=== PATIENT | female | born 1995 | race Caucasian/White ===

== ENCOUNTER 2016-12-01 17:36 | Emergency (ER) | payer BC ==
[2016-12-01 17:41] VITALS: BP 100/67; RESP 16
[2016-12-01] MEDS ORDERED: diphenhydrAMINE 25 MG CAP PO ONE (18:04)
[2016-12-01] MEDS ORDERED: FAMOTIDINE 20 MG TAB PO ONE (18:04)
[2016-12-01] MEDS ORDERED: predniSONE 20 MG TAB PO ONE (18:04)
--- NOTE | 2016-12-01 18:20 | EDPHY ---
H & P Time Seen by Provider: 12/01/16 17:48 HPI/ROS: HPI Allergic reaction. 20-year-old female by private vehicle with her friends. This patient was eating chicken and catch-up mustard. She reports that shortly after doing this she started feeling a burning and itching sensation over her skin. She then broke out in an erythematous rash, mostly over her anterior thighs and knees some on her chest and forearms. She reported mild burning sensation in her throat. She denies sensation of swelling or closing of her throat. No voice changes. She denies any stridor. No difficulty breathing or wheezing. She is feeling much better at the time of my evaluation. ROS: Constitutional: No fever, no chills. No weakness. Eyes: No discharge. No changes in vision. ENT: No sore throat. No nasal congestion or rhinorrhea. Respiratory: No cough. No shortness of breath. Cardiac: No chest pain, no palpitations. Gastrointestinal: No abdominal pain, no vomiting, no diarrhea. Genitourinary: No hematuria. No dysuria or increased frequency with urination. Musculoskeletal: No back pain. No neck pain. No myalgias or arthralgias. Skin: No rashes. Neurological: No headache. No focal weakness or altered sensation. 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 She denies prior food allergies. Social history: Nonsmoker. No alcohol. Student. Physical Exam: General Appearance: Alert, no distress. This patient is responding to questions appropriately and in full sentences. This patient appears well- hydrated and well-nourished. No voice changes. Eyes: Pupils equal and round no pallor or injection. No lid edema, erythema or injection. ENT, Mouth: Mucous membranes are moist. The pharyngeal tissues are unremarkable. No edema or swelling. No asymmetry suggestive of abscess. No erythema or exudates. No stridor on auscultation of her neck. Respiratory: There are no retractions, lungs are clear to auscultation with good air movement bilaterally. Cardiovascular: Regular rate and rhythm. No murmur. Gastrointestinal: Abdomen is soft and nontender, no masses, bowel sounds normal. No focal tenderness at McBurney's point. No Zambrano sign. Neurological: Motor sensory function is grossly intact. Cranial nerves are normal. Gait is normal. Skin: Warm and dry, no rashes. Musculoskeletal: Neck is supple and nontender. Extremities are symmetrical. All joints range without pain or impingement. Psychiatric: No agitation. No depression. Database: EKG: Imaging: Procedures: Emergency department course: Patient showed me a picture on her cell phone of her rash. This appeared erythematous of blotchy over her knees and anterior distal thighs. This has resolved. Vital signs reviewed and are normal. She was given 40 mg of oral Pepcid, 50 mg of oral Benadryl and 60 mg of oral prednisone. 7:25 p.m., patient re-evaluated. She reports complete resolution of her symptoms. Repeat pharyngeal exam is normal. Vital signs reviewed and are normal. Pulmonary exam she is clear to auscultation bilaterally. No rashes. She feels comfortable going home at this time and I feel she is safe for discharge. Follow-up and return to emergency department precautions reviewed with her. She will be prescribed prednisone, Pepcid and Benadryl over the next 3 days. All of her questions were answered she was discharged home in good condition with her friends. Differential Diagnosis: The differential diagnosis on this patient includes but is not limited to allergic reaction, food allergy. Anaphylaxis, anaphylactoid reaction unlikely. This represents a partial list of diagnoses considered. These considerations are based on history, physical exam, past history, reassessment and diagnostic testing. Smoking Status: Never smoked Constitutional: Initial Vital Signs Temperature (C) 36.5 C 12/01/16 17:37 Heart Rate 71 12/01/16 17:37 Respiratory Rate 16 12/01/16 17:37 Blood Pressure 100/67 12/01/16 17:37 O2 Sat (%) 100 12/01/16 17:37 O2 Delivery Mode Room Air Allergies/Adverse Reactions: No Known Allergies Allergy (Unverified 12/01/16 17:41) Home Medications: Medication Instructions Recorded predniSONE [prednisone 20mg (RX)] 60 mg PO DAILY #9 tab 12/01/16 Medical Decision Making - Data Points Medications Given: Discontinued Medications Diphenhydramine HCl (Benadryl) 50 mg PO EDNOW ONE Stop: 12/01/16 18:05 Last Admin: 12/01/16 18:10 Dose: 50 mg Famotidine (Pepcid) 40 mg PO EDNOW ONE Stop: 12/01/16 18:05 Last Admin: 12/01/16 18:10 Dose: 40 mg Prednisone (Prednisone) 60 mg PO EDNOW ONE Stop: 12/01/16 18:05 Last Admin: 12/01/16 18:10 Dose: 60 mg Departure - Departure Disposition: Home, Routine, Self-Care Clinical Impression: Allergic reaction Condition: Good Instructions: General Allergic Reaction (ED) Additional Instructions: Read and follow provided instructions. Follow-up with your primary care physician tomorrow for re-evaluation as needed. Take medication as prescribed. Benadryl: 50 mg every 6-8 hours as needed for rash, itching over the next 2-3 days. Pepcid: 40 mg, twice daily for the next 3 days. Return to the emergency department for worsening symptoms, return of rash, sensation of swelling in her throat, voice changes, difficulty swallowing, wheezing or difficulty breathing or other serious concerns. Referrals: MICHELLE SMITH [Other] - As per Instructions Prescriptions: predniSONE [prednisone 20mg (RX)] 60 mg PO DAILY #9 tab
[2016-12-01 20:02] VITALS: PULSE 55; TEMP 98.6; O2SAT 99
[2016-12-03] MEDS ORDERED: HYDROmorphONE/DILAUDID 1 MG/ML INJ ONE (04:14)
== END 2016-12-01 20:02 | disposition home or self-care (01) ==
DX: L29.9 Pruritus, unspecified (principal); T78.1XXA Other adverse food reactions, not elsewhere classified, initial encounter
CPT/HCPCS: J1170

== ENCOUNTER 2016-12-02 21:42 | Inpatient (IN) | payer BC ==
[2016-12-02] MEDS ORDERED: HYDROmorphONE/DILAUDID 1 MG/ML INJ IVP ONE ×2 (22:18→23:26)
[2016-12-02] MEDS ORDERED: HYDROmorphONE/DILAUDID 1 MG/ML INJ ONE (22:19)
--- NOTE | 2016-12-02 22:21 | EDPHY ---
H & P Smoking Status: Never smoked <LaurynMarlon - Last Filed: 12/02/16 23:31> <PaulinaSteven luz Nilay - Last Filed: 12/03/16 04:10> Time Seen by Provider: 12/02/16 22:19 HPI/ROS: Chief complaint. Abdominal pain HPI. 20-year-old female with extensive abdominal history presents with sudden abdominal pain at 5:30 p.m.. She says it initially began in the right lower quadrant and described as pressure and stabbing. It is now more generalized. She has an ileostomy which seems to be functioning well. No vomiting or diarrhea. She has a history of bowel obstructions, colectomy, ileostomy. She has had her appendix removed. She has no chest discomfort or trouble breathing. No urinary symptoms. She was seen yesterday in the emergency department for an allergic reaction and was treated with Pepcid, Benadryl as well as prednisone. ROS Constitutional. no fever/chills, no weakness Eyes. no problems with vision ENT. no sore throat, no nasal drainage Cardiovascular. no chest pain Respiratory. no shortness of breath, no cough Abdominal. Abdominal pain . no problems urinating MS. no calf pain/swelling, no neck/back pain, no joint pain Skin. no rash Lymph. no swollen glands Neuro. no headache, no dizziness, no difficulty walking or with speech (Marlon Combs) Past Medical/Surgical History: Past medical history significant for colectomy, ileostomy, intestinal pseudo- obstruction, bowel obstruction (Marlon Combs) Social History: Single, nonsmoker, no alcohol (Marlon Combs) Physical Exam: General Appearance: Alert well-developed female mild distress vital signs are stable Eyes: Pupils equal and round no pallor or injection. ENT, Mouth: Mucous membranes are moist. Respiratory: There are no retractions, lungs are clear to auscultation. Cardiovascular: Regular rate and rhythm. Gastrointestinal: Soft and diffusely tender. No masses. Increased bowel sounds. Ileostomy in the right lower quadrant Neurological: Awake and alert, sensory and motor exams grossly normal. Skin: Warm and dry, no rashes. Musculoskeletal: Neck is supple nontender. Extremities symmetrical, full range of motion. Psychiatric: Patient is oriented X 3, there is no agitation. (Marlon Combs) Constitutional: Initial Vital Signs Temperature (C) 37 C 12/02/16 21:52 Heart Rate 93 12/02/16 21:52 Respiratory Rate 18 12/02/16 21:52 Blood Pressure 115/74 12/02/16 21:52 O2 Sat (%) 99 12/02/16 21:52 O2 Delivery Mode Room Air Allergies/Adverse Reactions: mustard Allergy (Verified 12/02/16 22:25) Home Medications: Medication Instructions Recorded predniSONE [prednisone 20mg (RX)] 60 mg PO DAILY #9 tab 12/01/16 Medical Decision Making <Maroln Combs - Last Filed: 12/02/16 23:31> - Diagnostics Imaging: Discussed imaging studies w/ call manager Radiologist <Steven Yoon - Last Filed: 12/03/16 04:10> - Diagnostics Imaging Results: Imaging Impressions Abdomen CT 12/02/16 22:36 Impression: 1. Postsurgical changes within the small bowel loops of the lower abdomen and central pelvis, with associated peritoneal ascites. A more focal fluid collection with intraluminal air is present in the right lower quadrant suspicious for abscess. Dilated small bowel loops are fluid-filled within the central pelvis. Results called to Dr. Steven Yoon at 11:48 PM. Procedures: IV normal saline. Dilaudid for pain. (Marlon Combs) ED Course/Re-evaluation: [address] Combs pending CT scan results and re-evaluation. CT scan results noted. Patient has a large intraperitoneal abscess. I have discussed the case with Dr. Yao, general surgery. He will evaluate the patient. Patient to go to surgery under Dr. Yao. Bed request has been made. (Steven Yoon) Care Turn Over: care to Dr. Yoon at 2330 (Marlon Combs) - Data Points Laboratory Results: Laboratory Results 12/02/16 22:00 12/02/16 22:00 12/02/16 12/02/16 12/02/16 22:00 22:00 22:00 WBC 13.41 10^3/uL H 10^3/uL (3.80-9.50) RBC 4.41 10^6/uL 10^6/uL (4.18-5.33) Hgb 13.4 g/dL g/dL (12.6-16.3) Hct 40.4 % % (38.0-47.0) MCV 91.6 fL fL (81.5-99.8) MCH 30.4 pg pg (27.9-34.1) MCHC 33.2 g/dL g/dL (32.4-36.7) RDW 14.8 % % (11.5-15.2) Plt Count 393 10^3/uL 10^3/uL (150-400) MPV 10.2 fL fL (8.7-11.7) Neut % (Auto) 72.9 % % (39.3-74.2) Lymph % (Auto) 24.4 % % (15.0-45.0) [place] % (Auto) 2.0 % L % (4.5-13.0) Eos % (Auto) 0.1 % L % (0.6-7.6) Baso % (Auto) 0.2 % L % (0.3-1.7) Nucleat RBC Rel Count 0.0 % % (0.0-0.2) Absolute Neuts (auto) 9.77 10^3/uL H 10^3/uL (1.70-6.50) Absolute Lymphs (auto) 3.27 10^3/uL H 10^3/uL (1.00-3.00) Absolute Monos (auto) 0.27 10^3/uL L 10^3/uL (0.30-0.80) Absolute Eos (auto) 0.02 10^3/uL L 10^3/uL (0.03-0.40) Absolute Basos (auto) 0.03 10^3/uL 10^3/uL (0.02-0.10) Absolute Nucleated RBC 0.00 10^3/uL 10^3/uL (0-0.01) Immature Gran % 0.4 % % (0.0-1.1) Immature Gran # 0.05 10^3/uL 10^3/uL (0.00-0.10) Sodium 137 mEq/L mEq/L (134-144) Potassium 3.4 mEq/L L mEq/L (3.5-5.2) Chloride 105 mEq/L mEq/L (97-110) Carbon Dioxide 20 mEq/l L mEq/l (22-31) Anion Gap 12 mEq/L mEq/L (8-16) BUN 8 mg/dL mg/dL (7-23) Creatinine 1.0 mg/dL mg/dL (0.6-1.0) Estimated GFR > 60 Glucose 99 mg/dL mg/dL (70-100) Calcium 9.6 mg/dL mg/dL (8.5-10.4) Lipase 114 IU/L IU/L (23-300) Beta HCG, Qual NEGATIVE Medications Given: Discontinued Medications Hydromorphone HCl (Dilaudid) 1 mg IVP EDNOW ONE Stop: 12/02/16 22:19 Last Admin: 12/02/16 22:20 Dose: 1 mg Hydromorphone HCl (Dilaudid) 0.5 mg IVP EDNOW ONE Stop: 12/02/16 23:27 Last Admin: 12/02/16 23:27 Dose: 0.5 mg Hydromorphone HCl (Dilaudid) 0.5 mg IVP EDNOW ONE Stop: 12/03/16 00:17 Last Admin: 12/03/16 00:20 Dose: 0.5 mg Hydromorphone HCl (Dilaudid) 0.5 mg IVP EDNOW ONE Stop: 12/03/16 01:31 Last Admin: 12/03/16 01:36 Dose: Not Given Hydromorphone HCl (Dilaudid) 0.5 mg IVP EDNOW ONE Stop: 12/03/16 01:36 Last Admin: 12/03/16 01:36 Dose: 0.5 mg Sodium Chloride (Ns) 1,000 mls @ 0 mls/hr IV EDNOW ONE; Wide Open PRN Reason: Protocol Stop: 12/02/16 22:37 Last Admin: 12/02/16 22:46 Dose: 1,000 mls Ketorolac Tromethamine (Toradol) 30 mg IVP EDNOW ONE Stop: 12/03/16 01:32 Last Admin: 12/03/16 01:34 Dose: 30 mg Departure <Marlon Combs - Last Filed: 12/02/16 23:31> <Steven Yoon - Last Filed: 12/03/16 04:10> - Departure Disposition: [facility] Inpatient Acute Clinical Impression: Abdominal abscess Condition: Fair
[2016-12-02] MEDS ORDERED: NS 1,000 ML IV ONE (22:36)
[2016-12-02] MEDS ORDERED: IOPAMIDOL (ISOVUE-300) 100 ML BTL ONE (22:46)
[2016-12-02 23:09] LABS: % IMMATURE GRANULYOCYTES 0.4 % (0.0-1.1); ABSOLUTE IMMATURE GRANULOCYTES 0.05 10^3/uL (0.00-0.10); ADD DIFF? NO; ADD MORPH? NO; ADD SCAN? NO; ATYPICAL LYMPHOCYTE FLAG 0 (0-99); FRAGMENT RBC FLAG 0 (0-99); HEMATOCRIT 40.4 % (38.0-47.0); HEMOGLOBIN 13.4 g/dL (12.6-16.3); LEFT SHIFT FLG 20 (0-99); LIPEMIA HEMOLYSIS FLAG 80 (0-99); MEAN CELL HEMOGLOBIN 30.4 pg (27.9-34.1); MEAN CELL HEMOGLOBIN CONCENTR. 33.2 g/dL (32.4-36.7); MEAN CELL VOLUME 91.6 fL (81.5-99.8); MEAN PLATELET VOLUME 10.2 fL (8.7-11.7); PLATELET CLUMPS FLAG 0 (0-99); PLATELET COUNT 393 10^3/uL (150-400); RED BLOOD CELL COUNT 4.41 10^6/uL (4.18-5.33); RED CELL DISTRIBUTION WIDTH 14.8 % (11.5-15.2)
[2016-12-02 23:33] LABS: ANION GAP 12 mEq/L (8-16); CALCIUM 9.6 mg/dL (8.5-10.4); CARBON DIOXIDE 20 mEq/l (22-31); CHLORIDE 105 mEq/L (97-110); GLOMERULAR FILTRATION RATE > 60; GLUCOSE 99 mg/dL (70-100); POTASSIUM 3.4 mEq/L (3.5-5.2); SODIUM 137 mEq/L (134-144)
[2016-12-03] MEDS ORDERED: HYDROmorphONE/DILAUDID 1 MG/ML INJ IVP ONE ×2 (00:16→01:35)
[2016-12-03] MEDS ORDERED: cefOXitin SODIUM 2 GM in D5W 100 ML IV ONE (01:29)
[2016-12-03] MEDS ORDERED: HYDROmorphONE/DILAUDID 2 MG/ML INJ IVP ONE (01:30)
[2016-12-03] MEDS ORDERED: KETOROLAC 30 MG/1 ML SDV IVP ONE (01:31)
[2016-12-03] MEDS ORDERED: LR 1,000 ML IV ONE (02:04)
[2016-12-03] MEDS ORDERED: LIDOCAINE 1% 2 ML INJ ID PRN (02:04)
[2016-12-03] MEDS ORDERED: HYDROmorphONE/DILAUDID 2 MG/ML INJ ONE (02:06)
[2016-12-03] MEDS ORDERED: PROPOFOL 200 MG/20 ML VIAL ONE (02:07)
[2016-12-03] MEDS ORDERED: ROCURONIUM 50 MG/5 ML VIAL ONE (02:08)
[2016-12-03] MEDS ORDERED: DEXMEDETOMIDINE HCL 200 MCG/2 ML VIAL IV ONE (02:11)
--- NOTE | 2016-12-03 02:56 | PDANEPAE ---
ANE History of Present Illness Emergent Ex-Lap ANE Past Medical History - Pulmonary History Hx Oxygen in Use at Home: No - Endocrine History Hx Diabetes: No ANE Review of Systems Review of Systems: ANE Patient History - Allergies Allergies/Adverse Reactions: mustard Allergy (Verified 12/02/16 22:25) - NPO status NPO Since - Liquids (Date): 12/02/16 NPO Since - Solids (Date): 12/02/16 NPO Since - Solids (Time): 18:00 - Smoking Hx Smoking Status: Never smoked ANE Labs/Vital Signs - Labs Result Diagrams: 12/02/16 22:00 12/02/16 22:00 - Vital Signs Blood Pressure: 113/67 Heart Rate: 105 Respiratory Rate: 16 O2 Sat (%): 97 Height: 170 cm Weight: 45.4 kg ANE Physical Exam - Airway Neck exam: FROM Mallampati Score: Class 2 Mouth exam: normal dental/mouth exam - Pulmonary Pulmonary: clear to auscultation - Cardiovascular Cardiovascular: regular rate and rhythym - ASA Status ASA Status: III, E ANE Anesthesia Plan Anesthesia Plan: general endotracheal anesthesia (RSI)
[2016-12-03] MEDS ORDERED: ALBUTEROL 3 ML DEYVIAL IH PRN (02:57)
[2016-12-03] MEDS ORDERED: fentaNYL 100 MCG/2 ML INJ IVP PRN (02:57)
[2016-12-03] MEDS ORDERED: ONDANSETRON 4 MG/2 ML VIAL IVP PRN ×2 (02:57→03:52)
[2016-12-03] MEDS ORDERED: HYDROmorphONE/DILAUDID 1 MG/ML INJ IVP PRN (02:57)
[2016-12-03] MEDS ORDERED: NALOXONE HCL 0.4 MG/ML INJ IVP PRN (02:57)
[2016-12-03] MEDS ORDERED: RANITIDINE 50 MG/2 ML VIAL ONE (03:00)
[2016-12-03] MEDS ORDERED: DEXAMETHASONE 4 MG/ML VIAL ONE ×2 (03:00)
[2016-12-03] MEDS ORDERED: ONDANSETRON 4 MG/2 ML VIAL ONE (03:00)
--- NOTE | 2016-12-03 03:17 | GHP ---
[f rep st] PREOP HISTORY AND PHYSICAL DATE OF ADMISSION: 12/03/2016 REASON FOR ADMISSION: Abdominal pain. A 20-year-old female with a complicated abdominal surgical history dating back to her very early year s. She has undergone extensive abdominal surgeries including total abdominal colectomy with various ileostomies, attempted rectal and anal anastomoses, all complicated by various degrees of failure, po stoperative abscess, hematomas, obstructions, hernias and most recently anal anastomotic takedown res ultant in a continent right lower quadrant ileostomy. This procedure was completed in August in [facility]. Her postoperative course was notable for a postop abscess requiring IR drainage as well as a hematoma. She had been doing quite well until earlier this afternoon when she developed severe, sudd en onset of progressive central/pelvic abdominal pain. She denies nausea or vomiting. She has been unable to void which is not inconsistent with her history of urinary retention as well as gastropares is. She was able to cannulate her ileostomy earlier today with normal output per her. She denies fe vers or chills. She states that she was in the emergency room last night with an allergic reaction t o ingestion of mustard for which she was given antihistamines and prednisone with rapid symptomatic r esolution. PAST MEDICAL HISTORY: Intestinal pseudoobstruction. PAST SURGICAL HISTORY: As above. MEDICATIONS: Celexa, lamotrigine ALLERGIES: Mustard. SOCIAL HISTORY: No alcohol, no tobacco. 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 She is engaged. She is accompanied by her mother. FAMILY HISTORY: Noncontributory. REVIEW OF SYSTEMS: Notable for above GI complaints only and recent allergic reaction. Otherwise neg ative 12-point review. PHYSICAL EXAMINATION: VITAL SIGNS: Temperature 37, blood pressure 116/80, pulse 110, respirations 1 8. GENERAL: Patient is alert, appropriate. Moving slowly and uncomfortably. HEENT: Anicteric, dr y oral mucosa. HEART: Regular tachycardic. LUNGS: Clear bilaterally. ABDOMEN: Diffuse tendernes s, greatest throughout the right upper and lower quadrant as well as hypogastrium with guarding, well -healed midline incision as well as prior stoma site incisions. EXTREMITIES: Without edema. NEUROL OGIC: Alert, appropriate. LABORATORY DATA: White count 13, hemoglobin 13, platelets 400. Sodium 137, potassium 3.4, chloride 105, CO2 20, BUN 8, creatinine 1, glucose 99. test negative. Abdominal CT images directly reviewed on PACS and with on-call radiologist. Right lower quadrant abs cess with extraluminal air is present. Of concern is a large central abdominal fluid collection also with presumed extraluminal air. ostomy appears to be running through this collection whic h abuts her bladder and corresponds to her other side of significant tenderness. Massive gastric dis tention noted as well as bladder distention. IMPRESSION: 1. 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 2. Peritonitis. 3. Probable intraabdominal abscess versus consider possibility for leak, fistula and/or intestinal i nfarction not ruled out either given patient's history of all the differential diagnoses. Her centra l abdominal collection is not amenable to Interventional Radiology-based drainage. Given the patient 's rapidly progressive symptoms throughout the evening, I am recommending exploratory laparotomy with abscess drainage and further bowel assessment this evening. 4. Extensive surgical risks and benefits were explained to the patient's family at length. They wer e the possibility for bleeding, infection, differential diagnoses, bowel injury, anastomotic leak, ad ditional obstruction and need to reverse her continent ileostomy, recurrent abscess formation as well as others. All questions were entertained. She desires to proceed. /[id number]/MODL
[2016-12-03] MEDS ORDERED: epHEDrine SULFATE 10 MG/ML SYR ONE (03:28)
[2016-12-03] MEDS ORDERED: OXYCODONE/APAP 5/325 TAB PO PRN (03:52)
--- NOTE | 2016-12-03 03:52 | POSTOPPROG ---
Post Op Note Date of Operation: 12/03/16 Surgeon: Richy Yao Anesthesiologist: Richi Dwyer MD Anesthesia: GET(General Endotracheal) Pre-op Diagnosis: Peritonitis Post-op Diagnosis: Same Procedure: Ex Lap, YOU, drainage abdominal abscess Findings: thin, murky fluid central lower abdomen and RLQ Inf/Abcess present in the surg proc area at time of surgery?: Yes Depth: Organ Space EBL: Minimal Drains: Tj Sullivan Specimen(s): abd fluid for C&S
[2016-12-03] MEDS ORDERED: cefOXitin SODIUM 1 GM in D5W 50 ML IV SCH (04:00)
[2016-12-03] MEDS: KETOROLAC 15 MG/1 ML SDV IVP SCH ×4 (05:20→23:35)
[2016-12-03] MEDS: D5W 1/2 NS W/ 20 KCl/L 1,000 ML IV SCH ×2 (05:22→14:27)
[2016-12-03] MEDS: HYDROmorphONE/DILAUDID 1 MG/ML INJ IVP PRN ×8 (05:39→22:41)
--- NOTE | 2016-12-03 06:22 | GOP ---
[f rep st] OPERATIVE REPORT DATE OF OPERATION: 12/03/2016 SURGEON: Richy Yao MD ANESTHESIA: General. ANESTHESIOLOGIST: Kentrell Dwyer DO. PREOPERATIVE DIAGNOSIS: Peritonitis. POSTOPERATIVE DIAGNOSIS: Peritonitis. PROCEDURE PERFORMED: Exploratory laparotomy with drainage of abdominal abscess. FINDINGS: INDICATIONS: A 20-year-old, healthy female, with an extensive surgical history. Her most current GI configuration consists of a continent ileostomy, status post near-total proctocolectomy. She presen ts to the emergency room with a 1-day history of severe, progressive, abdominal pain, peritoneal find ings, leukocytosis, and CT imaging with multiple abdominal abscesses with extraluminal air collection s. She is undergoing surgical exploration at this time. Risks and benefits were explained including bleeding, infection, bowel injury, and indications for bowel resection, anastomotic leak, recurrent abscess formation, potential role for conversion of her continent ileostomy to a traditional ileostom y, recurrent bowel obstruction, as well as abscess formation. All questions were answered. She gary res to proceed. DESCRIPTION OF PROCEDURE: General anesthesia was induced. The abdomen was explored through a prior midline laparotomy. There were surprisingly a few abdominal wall adhesions at present. The abdomen was sharply entered. There was a large amount of murky, nonodorous fluid present within the right lo wer quadrant as well as central pelvis. This was sent for culture and sensitivity, and evacuated. T he small bowel was able to be run from the ligament of Treitz towards the continent ileostomy. The b owel was all of normal caliber. The stomach was noted to be markedly dilated. Nasogastric tube was confirmed in satisfactory position. Pelvic exploration had disclosed a normal-appearing uterus. Ova radha were difficult to identify secondary to adhesions around both ovaries. The bladder appeared nor mal as were the visceral surfaces. The ileostomy was cannulated intraoperatively. A moderate amount of thick, pasty succus entericus was retrieved. The pouch was irrigated until free flowing. Abdome n was copiously irrigated until clear. Having found no evidence of bowel perforation, nor bowel isch emia, a 15 round Tj-Sullivan drain was placed through a right upper quadrant stab incision and plac ed through the right lower quadrant. The abscess cavity as well was coursing anterior to the ileosto my and to the central pelvis. Seprafilm was placed over the visceral contents, as there was no oment um present. The midline fascia was closed with a running PDS suture. The wound was closed with Bent cryl suture and Dermabond. The patient was taken to the recovery room and extubated in satisfactory condition. /[id number]/MODL
[2016-12-03] MEDS: cefOXitin SODIUM 1 GM in D5W 50 ML IV SCH ×3 (08:17→20:36)
--- NOTE | 2016-12-03 09:49 | SOAPPROG ---
SOAP Progress Note Assessment/Plan: Assessment:pain markedly improved - surgical pain only. avss. comfortable. NG much thinner. comfortable. abd soft. timo serosang. ileostomy thinner succus. owen clear yellow. s/p ex lap - drainage abd abscess. doing well. ambulate. leave tubes today. supportive care. await cx results. cont abx until then Plan: 12/03/16 09:47 Objective: Vital Signs Temp Pulse Resp BP Pulse Ox 36.6 C 54 L 14 92/42 L 95 12/03/16 07:15 12/03/16 07:15 12/03/16 07:15 12/03/16 07:15 12/03/16 07:15 Microbiology 12/03/16 01:55 Gram Stain - Final Peritoneal Fluid - Anaerobic Tube/Swab 12/02/16 12/03/16 12/04/16 05:59 05:59 05:59 Intake Total 1300 Output Total 450 Balance 850 ICD10 Worksheet Patient Problems: Problems Problem Status Onset Abdominal abscess Acute
[2016-12-03 10:35] LABS: COLOR YELLOW; LEUKOCYTE ESTERASE,URINE NEGATIVE (NEGATIVE); NITRITE,URINE NEGATIVE (NEGATIVE)
[2016-12-03 10:41] LABS: MUCUS TRACE /lpf (NONE-1+)
[2016-12-03 10:44] LABS: WBC,URINE NONE SEEN /hpf (0-3)
--- NOTE | 2016-12-03 15:07 | ASMTCMCOM ---
CM Note CM Note Notes: CM met w/ pt for dispo planning. 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 Pt had emergency surgery at 2AM this morning. Pt reports that she does not have any neeeds at this time. Pt will most likely discharge as an independent. CM available for any changes. Date Signed: 12/03/2016 03:07 PM Electronically Signed By:BRENDA Farah
[2016-12-04] MEDS: HYDROmorphONE/DILAUDID 1 MG/ML INJ IVP PRN ×8 (00:45→22:09)
[2016-12-04] MEDS: cefOXitin SODIUM 1 GM in D5W 50 ML IV SCH ×4 (02:09→19:38)
[2016-12-04] MEDS: D5W 1/2 NS W/ 20 KCl/L 1,000 ML IV SCH (03:15)
[2016-12-04 05:12] LABS: HEMATOCRIT 34.3 % (38.0-47.0); HEMOGLOBIN 11.4 g/dL (12.6-16.3)
[2016-12-04] MEDS: KETOROLAC 15 MG/1 ML SDV IVP SCH ×3 (05:19→17:53)
[2016-12-04 05:24] LABS: ANION GAP 9 mEq/L (8-16); CALCIUM 8.7 mg/dL (8.5-10.4); CARBON DIOXIDE 29 mEq/l (22-31); CHLORIDE 100 mEq/L (97-110); CREATININE 0.6 mg/dL (0.6-1.0); GLOMERULAR FILTRATION RATE > 60; GLUCOSE 92 mg/dL (70-100); POTASSIUM 3.5 mEq/L (3.5-5.2); SODIUM 138 mEq/L (134-144)
[2016-12-04] MEDS ORDERED: METOCLOPRAMIDE 10 MG/2 ML VIAL IVP PRN (11:34)
--- NOTE | 2016-12-04 11:34 | SOAPPROG ---
SOAP Progress Note Assessment/Plan: Assessment:good night. slept well. no pain concerns. avss. comfortable. NG thin gastric. comfortable. abd soft. timo serosang. ileostomy thinner succus. owen clear yellow. pod#1 s/p ex lap - drainage abd abscess. doing well. ambulate. remove NG/owen/ileostomy tubes today. cx results gm neg. cont abx and TIMO until cx completed. Plan: 12/03/16 09:47 12/04/16 11:32 Objective: Vital Signs Temp Pulse Resp BP Pulse Ox 38.6 C H 94 14 105/69 97 12/04/16 11:17 12/04/16 11:17 12/04/16 11:17 12/04/16 11:17 12/04/16 11:17 Microbiology 12/03/16 01:55 Gram Stain - Final Peritoneal Fluid - Anaerobic Tube/Swab Laboratory Results 12/04/16 04:42 12/04/16 04:42 12/03/16 12/04/16 12/05/16 05:59 05:59 05:59 Intake Total 1300 200 Output Total 450 1575 Balance 850 -1374 ICD10 Worksheet Patient Problems: Problems Problem Status Onset Abdominal abscess Acute
[2016-12-04] MEDS ORDERED: HYOSCYAMINE SULFATE 0.125 MG TAB PO PRN (11:35)
[2016-12-04] MEDS ORDERED: ONDANSETRON DISINTEGRATING 4 MG TAB PO PRN (11:35)
[2016-12-04] MEDS ORDERED: ACETAMINOPHEN 325 MG TAB PO PRN (11:35)
[2016-12-04 14:53] LABS: % IMMATURE GRANULYOCYTES 0.2 % (0.0-1.1); ABSOLUTE IMMATURE GRANULOCYTES 0.02 10^3/uL (0.00-0.10); ADD DIFF? NO; ADD MORPH? NO; ADD SCAN? NO; ATYPICAL LYMPHOCYTE FLAG 0 (0-99); FRAGMENT RBC FLAG 0 (0-99); HEMOGLOBIN 11.4 g/dL (12.6-16.3); LEFT SHIFT FLG 20 (0-99); LIPEMIA HEMOLYSIS FLAG 80 (0-99); MEAN CELL HEMOGLOBIN 30.4 pg (27.9-34.1); MEAN CELL HEMOGLOBIN CONCENTR. 32.6 g/dL (32.4-36.7); MEAN CELL VOLUME 93.3 fL (81.5-99.8); MEAN PLATELET VOLUME 10.4 fL (8.7-11.7); PLATELET CLUMPS FLAG 0 (0-99); PLATELET COUNT 318 10^3/uL (150-400); RED BLOOD CELL COUNT 3.75 10^6/uL (4.18-5.33); RED CELL DISTRIBUTION WIDTH 15.2 % (11.5-15.2)
[2016-12-05] MEDS: KETOROLAC 15 MG/1 ML SDV IVP SCH ×2 (00:29→04:52)
[2016-12-05] MEDS: HYDROCODONE/APAP 5/325 TAB PO PRN ×3 (00:35→08:57)
[2016-12-05] MEDS: HYDROmorphONE/DILAUDID 1 MG/ML INJ IVP PRN ×2 (00:35→10:13)
[2016-12-05] MEDS: cefOXitin SODIUM 1 GM in D5W 50 ML IV SCH ×2 (01:20→09:33)
[2016-12-05 07:26] VITALS: BP 86/44; PULSE 48; RESP 14; TEMP 97.8; O2SAT 93
--- NOTE | 2016-12-05 08:56 | SOAPPROG ---
SOAP Progress Note Assessment/Plan: Assessment: surgical pain only. no nausea or vomiting. kulwinder reg diet. avss (bp 80-90 - asympt). comfortable. abd dist. incis clean. STEVE serous. pod#2 s/p ex lap - drainage peritoneal abscess - cx ecoli and kleb (sens pending). will plan to dc today with quinolone rx. f/u 1 week. drain out prior to discharge. Plan: 12/03/16 09:47 12/04/16 11:32 12/05/16 08:50 Objective: Vital Signs Temp Pulse Resp BP Pulse Ox 36.6 C 48 L 14 86/44 L 93 12/05/16 07:25 12/05/16 07:25 12/05/16 07:25 12/05/16 07:25 12/05/16 07:25 Microbiology 12/03/16 01:55 Gram Stain - Final Peritoneal Fluid - Anaerobic Tube/Swab Laboratory Results 12/04/16 04:45 12/04/16 04:42 12/04/16 12/05/16 12/06/16 05:59 05:59 05:59 Intake Total 200 750 Output Total 1575 380 Balance -1375 370 ICD10 Worksheet Patient Problems: Problems Problem Status Onset Abdominal abscess Acute
[2016-12-05] MEDS ORDERED: lamoTRIgine 100 MG TAB PO SCH (09:00)
[2016-12-05] MEDS ORDERED: CITALOPRAM 20 MG TAB PO SCH (09:00)
[2016-12-05] MEDS ORDERED: ASCORBIC ACID 500 MG TAB PO SCH (09:00)
[2016-12-05] MEDS ORDERED: MULTIVITAMINS 1 EACH TAB PO SCH (09:00)
--- NOTE | 2016-12-05 10:57 | GDS ---
[f rep st] DISCHARGE SUMMARY REASON FOR ADMISSION: Peritonitis. HOSPITAL COURSE: 20-year-old female with a significant abdominal surgical history for intestinal pse udo-obstruction. Please refer to her H and P for prior surgical details. She was admitted with acut e peritonitis, and CT findings disclosing multiple intra-abdominal abscesses versus a possible bowel perforation. Given her acute onset symptoms and recent surgical history, she underwent an explorator y laparotomy. She was found to have an intra-abdominal abscess that was drained. She had a benign p ostoperative course. Fluid cultures were growing E coli and Klebsiella, with sensitivities still pen ding upon discharge. She was sent home on postop day #2 in excellent condition, tolerating a regular diet, with adequate output out of her ileostomy. Drain tube was removed prior to hospital discharge . She was given prescriptions for [place], as well as ciprofloxacin. She will be seen in followup by Dr. Yao in 1 week. Discharge instructions were explained to the patient prior to leaving, as well as findings were reviewed with her primary surgeon in [place], as well. /[id number]/MODL
--- NOTE | 2016-12-05 17:26 | ASDISCHSUM ---
Discharge Information Plan Status:Home with No Needs Medically Cleared to Leave:12/05/2016 Discharge Date:12/05/2016 11:50 AM CM D/C Disposition:Home, Routine, Self-Care ADT D/C Disposition:Home, Routine, Self-Care Projected Discharge Date:12/05/2016 12:00 AM Transportation at D/C: Discharge Delay Reason: Follow-Up Date:12/05/2016 12:00 AM Discharge Slot: Final Diagnosis: Placement Information Patient Contact Information Contact Name:AGUILAR Relationship:Other Address: Work Phone: City: [facility] Phone: State/[place] [employer] Code: Email: Financial Information Financial Class:HMO and PPO Plans Primary Plan Desc: OUT OF STATE PPO Primary Plan Number:[id number] Secondary Plan Desc: Secondary Plan Number: Assessment Information [facility] [place] Progress Note CM Note CM Note Notes: CM met w/ pt for dispo planning. 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 Pt had emergency surgery at 2AM this morning. Pt reports that she does not have any neeeds at this time. Pt will most likely discharge as an independent. CM available for any changes. Date Signed: 12/03/2016 03:07 PM Electronically Signed By:BRENDA Farah Intervention Information
== END 2016-12-05 11:50 | disposition home or self-care (01) | DRG 358 ==
LOC: EDUNIT# → F3E 12-03 04:55
PROVIDERS: ADMIT Surgery; ATTEND Surgery
PROC: 0D9W0ZX Drainage of Peritoneum, Open Approach, Diagnostic (ICD-10-PCS; principal; 2016-12-03 01:45)
DX: K65.1 Peritoneal abscess (principal); K65.0 Generalized (acute) peritonitis; Z93.2 Ileostomy status
CPT/HCPCS: 96365; C1765; J0694; J0697; J1100; J1170; J1200; J1885; J1956; J2405; J2704; J2780; Q9967

== ENCOUNTER → 2016-12-16 | Outpatient (CLI) | payer BC | LOC: FIMAGING 15:51 | PROVIDERS: ATTEND Surgery | DX: K31.84 Gastroparesis (principal) ==

== ENCOUNTER 2016-12-25 08:43 | Inpatient (IN) | payer BC, MEDICAID ==
[2016-12-25] MEDS ORDERED: LR 2,000 ML IV ONE (12:57)
[2016-12-25 13:13] LABS: HEMATOCRIT 37.9 % (38.0-47.0); HEMOGLOBIN 12.4 g/dL (12.6-16.3); LIPEMIA HEMOLYSIS FLAG 80 (0-99); MEAN CELL HEMOGLOBIN 29.7 pg (27.9-34.1); MEAN CELL HEMOGLOBIN CONCENTR. 32.7 g/dL (32.4-36.7); MEAN CELL VOLUME 90.7 fL (81.5-99.8); PLATELET COUNT 419 10^3/uL (150-400); RED BLOOD CELL COUNT 4.18 10^6/uL (4.18-5.33); RED CELL DISTRIBUTION WIDTH 14.1 % (11.5-15.2)
[2016-12-25 13:25] LABS: ANION GAP 14 mEq/L (8-16); CALCIUM 9.8 mg/dL (8.5-10.4); CARBON DIOXIDE 20 mEq/l (22-31); CHLORIDE 108 mEq/L (97-110); CREATININE 0.8 mg/dL (0.6-1.0); GLOMERULAR FILTRATION RATE > 60; GLUCOSE 73 mg/dL (70-100); POTASSIUM 3.9 mEq/L (3.5-5.2); SODIUM 142 mEq/L (134-144)
[2016-12-25] MEDS ORDERED: LORazepam 2 MG/ML INJ IVP ONE (14:42)
[2016-12-25] MEDS ORDERED: LIDOCAINE 2% JELLY 5 ML TUBE TP ONE (14:42)
[2016-12-25] MEDS ORDERED: METOCLOPRAMIDE 10 MG/2 ML VIAL IVP PRN (17:11)
[2016-12-25] MEDS: KETOROLAC 15 MG/1 ML SDV IVP PRN ×2 (17:39→23:09)
[2016-12-25] MEDS: D5W 1/2 NS W/ 20 KCl/L 1,000 ML IV SCH (17:39)
--- NOTE | 2016-12-25 18:26 | GHP ---
[f rep st] PREOP HISTORY AND PHYSICAL DATE OF ADMISSION: 12/25/2016 REASON FOR ADMISSION: Gastroparesis. 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 She has undergone multiple abdominal surgeries throughout her 21 years, most recently including a total abdominal colectomy with a continent ileostomy. Prior to that she had undergone multiple partial colectomies with anastomoses, ileostomies all complicated by motility failure, postop abscess, hematoma, obstructions, hernias, and intestinal infarction. Most recently, last month, she was admitted for peritonitis secondary to a Klebsiella abdominal infection. At that time she was noted to have an extremely enlarged stomach which had been managed with nasogastric decompression around the time of her last admission. Since her hospital discharge, she has been having a harder time eating with early satiety, progressive abdominal pain, nausea and vomiting. She has been having normal output out of her continent ileostomy. She reports that 3 years ago she underwent a gastric emptying study with some concerns of apparent gastroparesis. This did intermittently improve over the years; however, even in retrospect prior to her abdominal surgeries this summer, her eating has been progressively becoming more unpleasant and undesirable because of intractable discomfort. She had been recently tried on reglan and erythomycin without relief of symptoms. She is admitted on this admission for fluid resuscitation, gastric decompression and consideration for a decompressive gastrostomy with a J -tube placement. 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 PAST SURGICAL HISTORY: As above. MEDICATIONS: Celexa, lamotrigine. ALLERGIES: Mustard. SOCIAL HISTORY: No alcohol, no tobacco. 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 She is engaged to [employer]. FAMILY HISTORY: Noncontributory. REVIEW OF SYSTEMS: Notable for above GI complaints only. PHYSICAL EXAMINATION: VITAL SIGNS: Temperature 36.5, blood pressure 90/58, pulse 51, respirations 15. GENERAL: The patient is alert, appropriate, comfortable. Anicteric. No cervical or supraclavicular lymphadenopathy. HEART : Regular. LUNGS: Clear. ABDOMEN: Soft, distended. Diffuse left-sided tenderness without rebound or guarding. Well-healed midline laparotomy. Right lower quadrant continent ileostomy site clean. EXTREMITIES: Without edema. NEUROLOGIC: Alert and appropriate. SKIN: Normal. LABORATORY: White count 6, hemoglobin 12, platelets of 419. Electrolytes within reference range. KUB images directly reviewed on PACS and with Radiology. Marked gastric dilation with effervescent bubbles. IMPRESSION: 1. Progressive gastroparesis. 2. History of chronic intestinal pseudo-obstruction with a nicely functioning continent ileostomy and apparent normal small bowel transit. PLAN: 1. Nasogastric tube was directly inserted at bedside. Large volume air was released with immediate symptomatic relief. 2. Care plan was reviewed with Dr. Gold, covering physician for [facility], regarding placement of a venting gastrostomy tube with feeding jejunostomy. We discussed other alternatives including decompression with IV nutrition placement. Given her apparent normal small bowel function, would favor enteral nutrition for long-term caloric management with p.o. intake as able. 3. The patient has been on rounds of Reglan and erythromycin as an outpatient, which have failed to improve her symptoms. We discussed other medical alternatives such as Domperidone which can still be potentially entertained. 4. The patient and her fiancee are strongly interested in proceeding with the above plan. Copy requested to: Dr. Sara Rodriguez /[id number]/MODL MTDD
[2016-12-26] MEDS: LORazepam 2 MG/ML INJ IVP PRN ×4 (03:21→19:07)
--- NOTE | 2016-12-26 11:35 | WOCRNPDOC ---
WOCRN Advanced Assessment Note - Skin Integrity Problem, Advanced Assess Lower Abdomen Drain Site Dressing Type: Dressing Sponge Dressing Description: Clean/Dry, Intact Jess Wound Tissue: Erythema, Denuded Wound Bed Color: Red Wound Bed Constitution: Granulation Tissue Wound Edges: Attached, Well Defined Skin Integrity Problem Comment: Patient has an internal ileostomy site with irritation surrounding the distal portion of the drain. Wound care does not need to follow this wound. Please reconsult PRN if it worsens.
[2016-12-26] MEDS ORDERED: MIDAZOLAM 2 MG/2 ML VIAL ONE (11:55)
[2016-12-26] MEDS ORDERED: fentaNYL 100 MCG/2 ML INJ ONE (11:55)
[2016-12-26] MEDS ORDERED: PROPOFOL/EMULSION 500 MG/50 ML BOTTLE IV ONE (11:56)
[2016-12-26] MEDS ORDERED: ceFAZolin 2 GM/DEXTROSE 100 ML IV ONE ×2 (12:15)
--- NOTE | 2016-12-26 12:19 | ASMTCMCOM ---
CM Note CM Note Notes: Spoke w/RN, pt has a complex medical hx but is independent. 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 CM available for any changes. Date Signed: 12/26/2016 12:18 PM Electronically Signed By:Claudia Mccurdy RN
[2016-12-26] MEDS ORDERED: LIDOCAINE 2% 5 ML SDV ONE (12:48)
[2016-12-26] MEDS ORDERED: epHEDrine SULFATE 10 MG/ML SYR ONE (12:48)
--- NOTE | 2016-12-26 12:52 | PDANEPAE ---
ANE Past Medical History - Pulmonary History Hx Oxygen in Use at Home: No Hx Sleep Apnea: No Sleep Apnea Screening Result - Last Documented: Negative - Endocrine History Hx Diabetes: No - Chronic Pain History Chronic Pain: Yes ANE Review of Systems Review of Systems: ANE Patient History - Allergies Allergies/Adverse Reactions: milk Allergy (Verified 12/03/16 10:16) mustard Allergy (Verified 12/02/16 22:25) - Home Medications Home Medications: Ascorbic Acid [Vitamin C 500 mg (*)] 500 mg PO DAILY 12/03/16 [Last Taken ] Citalopram [CeleXA 20 MG] 20 mg PO HS 12/03/16 [Last Taken 12/24/16] Ondansetron Odt [Zofran Odt 4 mg (*)] 4 mg PO DAILY PRN 12/03/16 [Last Taken 05/10] lamoTRIgine [LamICTAL 100 MG (*)] 100 mg PO HS 12/03/16 [Last Taken 12/24/16] - NPO status NPO Since - Liquids (Date): 12/26/16 NPO Since - Liquids (Time): 08:00 NPO Since - Solids (Date): 12/26/16 NPO Since - Solids (Time): 08:00 - Smoking Hx Smoking Status: Never smoked SHAY Labs/Vital Signs - Labs Result Diagrams: 12/25/16 12:00 12/25/16 12:00 - Vital Signs Blood Pressure: 84/56 Heart Rate: 61 Respiratory Rate: 16 O2 Sat (%): 96 Height: 170.18 cm Weight: 43.545 kg ANE Physical Exam - Airway Mallampati Score: Class 1 Mouth exam: normal dental/mouth exam, poor dentition - Pulmonary Pulmonary: no respiratory distress, no rales or rhonchi, clear to auscultation - Cardiovascular Cardiovascular: regular rate and rhythym, no murmur, rub, or gallop - ASA Status ASA Status: III ANE Anesthesia Plan Anesthesia Plan: GA with mask
[2016-12-26] MEDS ORDERED: fentaNYL 100 MCG/2 ML INJ IVP PRN (13:11)
[2016-12-26] MEDS ORDERED: ALBUTEROL 3 ML DEYVIAL IH PRN (13:11)
[2016-12-26] MEDS ORDERED: NALOXONE HCL 0.4 MG/ML INJ IVP PRN (13:11)
[2016-12-26] MEDS ORDERED: LR 500 ML IV PRN (13:11)
[2016-12-26] MEDS ORDERED: ONDANSETRON 4 MG/2 ML VIAL IVP PRN (13:11)
[2016-12-26] MEDS ORDERED: PROPOFOL 200 MG/20 ML VIAL ONE ×3 (13:12→13:28)
[2016-12-26] MEDS: KETOROLAC 15 MG/1 ML SDV IVP PRN (19:06)
--- NOTE | 2016-12-26 19:06 | SOAPPROG ---
[facility] Progress Note Assessment/Plan: Assessment:pt seen early today. difficulty cannulating cont ileostomy with associated abd pain - no prior challenges before yesterday. her initial gastric pain was better with decompression. avss. abd dist at stoma site with tenderness - unable to insert stiff catheter - easily inserted 16fr coudet catheter with large succus/air output. patient went for gj tube - difficult anatomic placement but successful. c/o postprocedural pain. adaptor found to place to gravity drainage. care plan discussed extensively with pt/fiance and mother - to start j tube feeds tomorrow with dietary consult. will need prison gastric decompression with plans to assess gastric motility at later time. will reattempt to cannulate ileostomy prior to discharge in the next couple of days. will leave to gravity drainage until then. Plan: 12/26/16 18:59 Objective: Vital Signs Temp Pulse Resp BP Pulse Ox 37.2 C 68 16 90/57 L 98 12/26/16 17:34 12/26/16 17:34 12/26/16 17:34 12/26/16 17:34 12/26/16 17:34 Laboratory Results 12/25/16 12:00 12/25/16 12:00 12/25/16 12/26/16 12/27/16 05:59 05:59 05:59 Output Total 700 500 Balance -700 -500 ICD10 Worksheet Patient Problems: Problems Problem Status Onset Abdominal abscess Acute
[2016-12-26] MEDS: KETOROLAC 15 MG/1 ML SDV IVP SCH (19:17)
[2016-12-26] MEDS: D5W 1/2 NS W/ 20 KCl/L 1,000 ML IV SCH (22:23)
[2016-12-27] MEDS: KETOROLAC 15 MG/1 ML SDV IVP SCH ×4 (01:01→18:53)
--- NOTE | 2016-12-27 05:24 | GIREPORT ---
[facility] - Endoscopy Department Patient Name: Andree Fuller Procedure Date: 12/26/2016 8:26 AM Patient Type: Outpatient Attending / ER Physician: Seymour Gold MD Procedure: Upper GI endoscopy Indications: For therapy of gastroparesis, Nausea with vomiting Patient Profile: 21 year old female presents for placement of PEG-J tube for possible ve nting and jejunal feeds. Providers: Seymour Gold MD Medicines: Monitored Anesthesia Care. Ancef 2gm IV x 1. Complications: No immediate complications. Estimated blood loss: Minimal. Description of Procedure: After obtaining informed consent, the endoscope was passed under direct vision. Throughout the procedure, the patient's blood pressure, pulse, and oxygen saturations were monitored continuous ly. The Endoscope was introduced through the mouth, and advanced to the second part of duodenum. The upper GI endoscopy was performed with difficulty due to significant looping in the stomach. The J tube positioning was technically difficult due to the looping and sharp angulations noted probab ly secondary to her mutliple surgeries and adhesions. The J- tube migrated multiple times into the stomach with minimal scope movement. Due to looping it was difficult, to insert the tube distall y into the small bowel. Findings: The patient was placed in the supine position for PEG placement. The stomach was insufflated to appose gastric and abdominal parekh. A site was located in the cardia with good transillumination for placement. The abdominal wall was marked and prepped in a sterile manner. The area was anestheti zed with 4 mL of 1% lidocaine. The trocar needle was introduced through the abdominal wall and into the stomach under direct endoscopic view. A snare was introduced through the endoscope and opened in the gastric lumen. The guide wire was passed through the trocar and into the open snare. The snare w as closed around the guide wire. The endoscope and snare were removed, pulling the wire out through the mouth. A skin incision was made at the site of needle insertion. The externally removable 24 Fr EndoVive Safety gastrostomy tube was lubricated. The G-tube was tied to the guide wire and pulle d through the mouth and into the stomach. The trocar needle was removed, and the gastrostomy tube was pulled out from the stomach through the skin. The external bumper was attached to the gastrostom y tube, and the tube was cut to remove the guide wire. The final position of the gastrostomy tube was confirmed by relook endoscopy, and skin marking noted to be 3 cm at the external bumper. The fin al tension and compression of the abdominal wall by the PEG tube and external bumper were checked a nd revealed that the bumper was moderately tight and mildly deforming the skin. A 20 Fr EndoVive Sa fety J- tube was then passed through the gastric tube and advanced endoscopically to the jejunum. Appropriate position of the tip of the tube was confirmed endoscopically. This was technically challenging due to her anatomy and significant looping on the scope and feeding tu The feeding t ube was capped, and the tube site cleaned and drssed.. Approximately 45 minutes was spent trying to advance the tube distally into the small bowel. The J-tube migrated multiple times back into the stomach with withdrawa of the scope. Due to significant looping and sharp angulations, it was no t possible to advance the scope far into the small bowel. The J-tube was grasped by rat [facility] eps and pulled into the small bowel by just advancing the forceps (vs the scope) Estimated Blood Loss: Estimated blood loss was minimal. Post Op Diagnosis: - An externally removable PEG-J placement was successfully completed. - No specimens collected. - Technically challenging placement of J extension due to her anatomy. J tube migrated multiple times. Could not clip the tube into place due to the fact that the scope could not easiy be advanced into the small bowel du e to looping. Recommendation: - Return patient to hospital [facility] for ongoing care. - Ok to start tube feeds tomorrow. - If migration, would consider IR placement. - Thank you for allowing me to participate in the care of your patient. Attending Participation: I personally performed the entire procedure. Seymour Gold MD Seymour Gold MD 12/27/2016 5:23:46 AM Number of Addenda: 0 Note Initiated On: 12/26/2016 8:26 AM [email or web address]
[2016-12-27] MEDS: LORazepam 2 MG/ML INJ IVP PRN ×2 (07:36→16:27)
[2016-12-27] MEDS ORDERED: IOPAMIDOL (ISOVUE 370) 100 ML BTL IV ONE (09:26)
[2016-12-27] MEDS: HYDROmorphONE/DILAUDID 1 MG/ML INJ IVP PRN ×5 (10:17→22:54)
[2016-12-27] MEDS: D5W 1/2 NS W/ 20 KCl/L 1,000 ML IV SCH (10:20)
--- NOTE | 2016-12-27 13:00 | ASMTCMCOM ---
CM Note CM Note Notes: Spoke w/RN, pt will need tube feeds at home, referral sent to [facility]. SW to see pt re; possible eating disorder, NIKKY w/f. Date Signed: 12/27/2016 01:00 PM Electronically Signed By:Claudia Mccurdy RN
--- NOTE | 2016-12-27 14:19 | SOAPPROG ---
[facility] Progress Note Assessment/Plan: Assessment:pt seen early today in rads (J tube retracted into stomach last mike) . c/o pain from PEJ placement. No stoma issues with catheter in place. avss. comfortable, appears depressed. abd dist, soft, tube secure. PEG bag with gastric content. ileostomy with normal succus. Tube able to be manipulated back into small bowel by rads successfully. Will plan to start j tube feeds today. continue gastric decompression. will add reglan scheduled. care plan discussed with pt and nursing staff. continued gastric decompression with plans to assess gastric motility at later time. will reattempt to cannulate ileostomy prior to discharge in the next couple of days. will leave to gravity drainage until then. Plan: 12/26/16 18:59 12/27/16 14:15 Objective: Vital Signs Temp Pulse Resp BP Pulse Ox 37.0 C 57 L 14 97/65 L 95 12/27/16 07:44 12/27/16 07:44 12/27/16 07:44 12/27/16 07:44 12/27/16 07:44 Laboratory Results 12/25/16 12:00 12/25/16 12:00 12/26/16 12/27/16 12/28/16 05:59 05:59 05:59 Output Total 700 850 Balance -700 -850 ICD10 Worksheet Patient Problems: Problems Problem Status Onset Abdominal abscess Acute
[2016-12-27] MEDS: METOCLOPRAMIDE 10 MG/2 ML VIAL IVP SCH ×2 (15:44→21:09)
--- NOTE | 2016-12-27 17:03 | ASMTCMCOM ---
CM Note CM Note Notes: Met with pt at request of CM and RN as she is struggling emotionally with her new feeding tube and inability to eat solid foods anymore. Pt was lying in bed with her fimarko [employer] and was very tearful. Andree currently weighs less than 100 lbs with a BMI of 15. She has a complicated medical and surgical hx from a congenital intestinal pseudo-obstruction. She has had multiple surgeries and recently had a J-tube placed for future tube feedlings. She said since she can't eat solids anymore she doesn't know how she will handle social situations. We discussed this and since she can drink liquids and some smoothies thought this might be a good solution for her. We also discussed her emotional needs - she doesn't have many friends and lives with her fimarko in a [employer] dorm. Andree agreed she will need to tell people what she needs and Will at that point said she isn't very good at sharing what's going on with her. Andree said she didn't want to be a burden to him. That generated discussion of her "new" reality and the fact that she will have specific needs to be met. Will said he is more than willing to help support her in any way he can. She will also try to surround herself with people who will have a positive influence on her. Andree then said she thought she might d/c Friday and return to school Friday. We then discussed whether she will be safe to walk the 1/2 mile or so to her classes from the dorm given she has been in the hospital and on various sedating meds. She acknowledged it might be a good idea to "attend" her classes through Skype which she has done in the past. She is impatient with her mother who she feels is over protective and a "pain in the ass". We talked about ways she can respond to her mother to maintain a civil relationship and reduce her negative feelings toward her. She is also anxious to start regaining her physical fitness. NIKKY encouraged her to discuss with her MD how to proceed with a fitness program. Andree is struggling with her self-image and as any 21 yo, wants to fit in. This CM is working Friday and asked if she would like another visit. She said she would. CM to follow up with her Friday. The d/c plan is still for pt to d/c with [facility]. Andree has had counseling in the past and was encouraged to restart this if she felt it was a benefit to her. Date Signed: 12/27/2016 05:02 PM Electronically Signed By:LELE Oconnell
[2016-12-28] MEDS: METOCLOPRAMIDE 10 MG/2 ML VIAL IVP SCH ×3 (01:17→15:38)
[2016-12-28] MEDS: KETOROLAC 15 MG/1 ML SDV IVP SCH ×4 (01:17→18:48)
[2016-12-28] MEDS: HYDROmorphONE/DILAUDID 1 MG/ML INJ IVP PRN ×4 (03:32→17:23)
--- NOTE | 2016-12-28 09:53 | SOAPPROG ---
SOAP Progress Note Assessment/Plan: Assessment:jtube clogged last mike - unable to be flushed by staff. pain slightly better at PEJ insertion site. avss. comfortable. abd soft, tender tube site. no erythema. difficulty flushing tube with water/soda... gtube disconnected. ileostomy cath removed - difficulty placing stiffer catheter. will check kub. tube feeding snafu noted - will continue to work with social services director. additional CM issues noted as well. diet when able. cont reglan for now. pt seen early today in rads (J tube retracted into stomach last mike). c/o pain from PEJ placement. No stoma issues with catheter in place. avss. comfortable , appears depressed. abd dist, soft, tube secure. PEG bag with gastric content. ileostomy with normal succus. Tube able to be manipulated back into small bowel by rads successfully. Will plan to start j tube feeds today. continue gastric decompression. will add reglan scheduled. care plan discussed with pt and nursing staff. continued gastric decompression with plans to assess gastric motility at later time. will reattempt to cannulate ileostomy prior to discharge in the next couple of days. will leave to gravity drainage until then. Plan: 12/26/16 18:59 12/27/16 14:15 12/28/16 09:29 Objective: Vital Signs Temp Pulse Resp BP Pulse Ox 36.7 C 48 L 12 105/66 100 12/28/16 08:00 12/28/16 08:00 12/28/16 08:00 12/28/16 08:00 12/28/16 08:00 Laboratory Results 12/25/16 12:00 12/25/16 12:00 12/27/16 12/28/16 12/29/16 05:59 05:59 05:59 Intake Total 1605 Output Total 575 1935 Balance -850 -70 ICD10 Worksheet Patient Problems: Problems Problem Status Onset Abdominal abscess Acute
[2016-12-28] MEDS: LORazepam 2 MG/ML INJ IVP PRN (12:14)
[2016-12-28] MEDS: METOCLOPRAMIDE 10 MG/10 ML UDL PO SCH ×2 (16:12→22:11)
--- NOTE | 2016-12-28 17:10 | GOP ---
[f rep st] OPERATIVE REPORT DATE OF OPERATION: 12/28/2016 SURGEON: Richy Yao MD PREOPERATIVE DIAGNOSIS: Displaced jejunostomy tube. POSTOPERATIVE DIAGNOSIS: Displaced jejunostomy tube. PROCEDURE PERFORMED: Jejunostomy tube replacement under fluoroscopy. FINDINGS: See below. INDICATIONS: 21-year-old female admitted with gastroparesis, who underwent a PEJ tube placement earlier this week. The jejunostomy portion of her tube had retracted back into her stomach. This was fluoroscopically manipulated down to the 2nd portion of the jejunum yesterday. Throughout the course of the evening , the tube has retracted back into the stomach. She is taken back to the fluoroscopy suite for attempted repositioning. DESCRIPTION OF PROCEDURE: The outer sheath of the gastrostomy portion of the tube was cut approximately 6-8 cm shorter than its initial placement, for additional length to be obtained using the J-tube portion of the tube. A 0.35 guidewire was passed through the tube and manipulated past the pylorus into the 2nd portion of the duodenum. There was significant redundancy and looping of the wire with manipulation, given the patient's elongated J-shaped stomach. Initially, a 5-American Kumpe catheter was utilized to help try and straighten out the initial 0.35 wire, which did help position the jejunostomy catheter down toward the 1st portion of the duodenum. The Kumpe catheter was removed, and an 0.35 Amplatz catheter was placed through the jejunostomy side hole for dual wiring of the catheter. With this again, areas of redundancy made further manipulation difficult. The wire was able to be further passed into the distal 3rd portion of the jejunum around the ligament of Treitz. At this point, with [id number] maneuvering of the tube over the wire, I was able to finally maneuver the jejunostomy tube down around the 2nd, toward the proximal 3rd portion of the duodenum. Both 0.35 guidewires were removed, retracting the looping within the stomach. The catheter was able to be pushed to its hub toward the 4th portion of the duodenum. Upon completion, satisfactory positioning was noted. No significant looping was present at that time within the fundus of the stomach. The patient tolerated the procedure well without immediate complication. /[id number]/MODL MTDD
[2016-12-28] MEDS: oxyCODONE IR 5 MG TAB PO PRN ×2 (19:28→22:58)
[2016-12-29] MEDS: KETOROLAC 15 MG/1 ML SDV IVP SCH ×4 (00:49→18:52)
[2016-12-29] MEDS: oxyCODONE IR 5 MG TAB PO PRN ×5 (02:27→21:44)
[2016-12-29] MEDS: METOCLOPRAMIDE 10 MG/10 ML UDL PO SCH ×4 (05:40→21:36)
--- NOTE | 2016-12-29 08:23 | SOAPPROG ---
SOAP Progress Note Assessment/Plan: Assessment:no complaints. tube repositioned in fluoro yesterday again. tube feeding tolerated yesterday at 20cc. she stopped it for a few hours overnight. PEJ site pain slightly better. able to cannulate stoma again. KUB with tube retraction again toward pylorus this am. will review with GI options of clipping catheter. if all else fails, may need to consider a surgical j-tube option. will continue to work with insurance on feeding approval. jtube clogged last mike - unable to be flushed by staff. pain slightly better at PEJ insertion site. avss. comfortable. abd soft, tender tube site. no erythema. difficulty flushing tube with water/soda... gtube disconnected. ileostomy cath removed - difficulty placing stiffer catheter. will check kub. tube feeding snafu noted - will continue to work with rn social work. additional CM issues noted as well. diet when able. cont reglan for now. pt seen early today in rads (J tube retracted into stomach last mike). c/o pain from PEJ placement. No stoma issues with catheter in place. avss. comfortable , appears depressed. abd dist, soft, tube secure. PEG bag with gastric content. ileostomy with normal succus. Tube able to be manipulated back into small bowel by rads successfully. Will plan to start j tube feeds today. continue gastric decompression. will add reglan scheduled. care plan discussed with pt and nursing staff. continued gastric decompression with plans to assess gastric motility at later time. will reattempt to cannulate ileostomy prior to discharge in the next couple of days. will leave to gravity drainage until then. Plan: 12/26/16 18:59 12/27/16 14:15 12/28/16 09:29 12/29/16 08:20 Objective: Vital Signs Temp Pulse Resp BP Pulse Ox 36.7 C 59 L 16 104/65 93 12/29/16 00:00 12/29/16 00:00 12/29/16 00:00 12/29/16 00:00 12/29/16 00:00 Laboratory Results 12/25/16 12:00 12/25/16 12:00 12/28/16 12/29/16 12/30/16 05:59 05:59 05:59 Intake Total 1605 1238 Output Total 1675 Balance -70 1238 ICD10 Worksheet Patient Problems: Problems Problem Status Onset Abdominal abscess Acute
--- NOTE | 2016-12-29 16:21 | ASMTCMCOM ---
CM Note CM Note Notes: Met with pt again today. Her fiance and a friend were present as well. Andree continues to be concerned about how her tube feedings will be paid for. Re payment options: NIKKY encouraged Andree to ask her father to ask [employer] if they have a rider for nutritional support (ie tube feedings) he could take out or if there are scholarships or otehr financial assistance available. In an effort to include her mother NIKKY also suggested Andree ask her mother to contact the company that makes [employer] to see if they have a scholarship to assist with payment or whether they can donate the food to her for a while. Andree will take a picture of the bag with the contact information and send it to her mother. She asked if there were any other options if the J-tube doesn't work out - NIKKY encouraged her to discuss with the MDs involved in her care. She is going to surgery tomorrow. Nancy from [facility] is supposed to contact [employer] tomorrow so hopefully she will have input as well. Andree appeared to have more color in her face today and was not tearful. We agreed that this journey is like "a climb up [facility]" and seems never ending but hopefully GI will resolve the tube issue and she will tolerate the current tube feeding regimen. Date Signed: 12/29/2016 04:20 PM Electronically Signed By:LELE Oconnell
[2016-12-29] MEDS: D5W 1/2 NS W/ 20 KCl/L 1,000 ML IV SCH (19:00)
[2016-12-29] MEDS: HYDROmorphONE/DILAUDID 1 MG/ML INJ IVP PRN ×2 (21:36→22:49)
[2016-12-30] MEDS: KETOROLAC 15 MG/1 ML SDV IVP SCH ×3 (01:20→15:15)
[2016-12-30] MEDS: HYDROmorphONE/DILAUDID 1 MG/ML INJ IVP PRN ×11 (02:33→22:08)
[2016-12-30] MEDS: D5W 1/2 NS W/ 20 KCl/L 1,000 ML IV SCH ×2 (08:00→22:15)
[2016-12-30] MEDS: METOCLOPRAMIDE 10 MG/10 ML UDL PO SCH ×4 (08:45→19:59)
[2016-12-30] MEDS ORDERED: LR 1,000 ML IV ONE (09:55)
[2016-12-30] MEDS ORDERED: HYDROmorphONE/DILAUDID 1 MG/ML INJ ONE ×3 (10:16→12:31)
--- NOTE | 2016-12-30 10:28 | SOAPPROG ---
SOAP Progress Note Assessment/Plan: Assessment/Plan: G-J tube attempted endoscopically and fluoroscopically Retracted into stomach again c/o cramping with tube feeds. unable to intubate ileostomy.feels full near pouch. want intubation tral in endoscopy sweet concerned regarding school would like definitive solution regarding issues. Long discussion held with pt and mother and one last endoscopic trial prior to surgical J-tube RRR CTA Soft NT G tube site c/d ostomy site no edema endoscopic trial today Dr Duncan. Consider intubation of ileostomy while sedated. J tube surgically if not successful endoscopically. simethicone/g-tube decompression for cramping 12/30/16 10:23 Objective: Vital Signs Temp Pulse Resp BP Pulse Ox 36.5 C 66 14 94/64 L 97 12/30/16 09:43 12/30/16 09:43 12/30/16 09:43 12/30/16 09:43 12/30/16 09:43 Laboratory Results 12/25/16 12:00 12/25/16 12:00 12/29/16 12/30/16 12/31/16 05:59 05:59 05:59 Intake Total 1238 1266 Balance 1238 1266 ICD10 Worksheet Patient Problems: Problems Problem Status Onset Abdominal abscess Acute
--- NOTE | 2016-12-30 10:35 | PDANEPAE ---
ANE History of Present Illness congenital bowel obstruction ANE Past Medical History - Pulmonary History Hx Oxygen in Use at Home: No Hx Sleep Apnea: No Sleep Apnea Screening Result - Last Documented: Negative - Endocrine History Hx Diabetes: No - Chronic Pain History Chronic Pain: Yes ANE Review of Systems Review of Systems: ANE Patient History - Allergies Allergies/Adverse Reactions: milk Allergy (Verified 12/03/16 10:16) mustard Allergy (Verified 12/02/16 22:25) - Home Medications Home Medications: Ascorbic Acid [Vitamin C 500 mg (*)] 500 mg PO DAILY 12/03/16 [Last Taken ] Citalopram [CeleXA 20 MG] 20 mg PO HS 12/03/16 [Last Taken 12/24/16] Ondansetron Odt [Zofran Odt 4 mg (*)] 4 mg PO DAILY PRN 12/03/16 [Last Taken 05/10] lamoTRIgine [LamICTAL 100 MG (*)] 100 mg PO HS 12/03/16 [Last Taken 12/24/16] - NPO status NPO Since - Liquids (Date): 12/29/16 NPO Since - Liquids (Time): 19:00 NPO Since - Solids (Date): 12/26/16 NPO Since - Solids (Time): 00:00 - Smoking Hx Smoking Status: Never smoked ANE Labs/Vital Signs - Labs Result Diagrams: 12/25/16 12:00 12/25/16 12:00 - Vital Signs Blood Pressure: 94/64 Heart Rate: 66 Respiratory Rate: 14 O2 Sat (%): 97 Height: 170.18 cm Weight: 43.545 kg ANE Physical Exam - Airway Neck exam: FROM Mallampati Score: Class 1 Mouth exam: normal dental/mouth exam - Pulmonary Pulmonary: no respiratory distress - Cardiovascular Cardiovascular: regular rate and rhythym - ASA Status ASA Status: II ANE Anesthesia Plan Total IV Anesthesia: Yes
[2016-12-30] MEDS ORDERED: PROPOFOL/EMULSION 500 MG/50 ML BOTTLE IV ONE (10:38)
[2016-12-30] MEDS ORDERED: ROCURONIUM 50 MG/5 ML VIAL ONE (11:26)
[2016-12-30] MEDS ORDERED: DEXAMETHASONE 4 MG/ML VIAL ONE (11:26)
[2016-12-30] MEDS ORDERED: GLYCOPYRROLATE 0.2 MG/1 ML VIAL ONE (11:26)
[2016-12-30] MEDS ORDERED: NALOXONE HCL 0.4 MG/ML INJ IVP PRN ×2 (11:36→11:37)
[2016-12-30] MEDS ORDERED: PROMETHAZINE HCL 25 MG/ML INJ IVP PRN (11:37)
[2016-12-30] MEDS ORDERED: ONDANSETRON 4 MG/2 ML VIAL IVP PRN (11:37)
--- NOTE | 2016-12-30 11:54 | POSTANESTH ---
Post Anesthetic Evaluation Cardiovascular Status: Normal, Stable Respiratory Status: Normal, Stable Level of Consciousness/Mental Status: Can Participate in Eval Pain Control: Adequate, Prn Tx Ordered Nausea/Vomiting Control: Adequate, Prn Tx Ordered Complications Possibly Related to Anesthesia: None Noted
--- NOTE | 2016-12-30 12:04 | GIREPORT ---
[facility] Surgical Services - Endoscopy Department Patient Name: Andree Fuller Procedure Date: 12/30/2016 9:38 AM Patient Type: Inpatient Attending MD/ ER Physician: Alex Leonard MD Procedure: Upper GI endoscopy Indications: Generalized abdominal pain, Nausea with vomiting Providers: Alex Leonard MD Medicines: General Anesthesia Complications: No immediate complications. Description of Procedure: After obtaining informed consent, the endoscope was passed under direct vision. Throughout the procedure, the patient's blood pressure, pulse, and oxygen saturations were monitored continuous ly. The Endoscope was introduced through the mouth, and advanced to the second part of duodenum. The patient tolerated the procedure well. The upper GI endoscopy was somewhat difficult due to abnor mal anatomy. Findings: The esophagus was normal. J-shaped stomach. There was evidence of an intact gastrostomy with a patent G-tube present in the gastric body. Th is was characterized by healthy appearing mucosa. A J-tube was threaded through the G-tube which coils up to the fundus and then down the J-shaped stomach into the antrum. The J-tube was dragged into the 1st portion of the duodenum and clipped into place. The 2nd portion of the duodenum makes a sharp angulation and I could not advance the tube any further, despite trying a stiffening wire down the working channel of the tube. Estimated Blood Loss: Estimated blood loss: none. Post Op Diagnosis: - Normal esophagus. - Intact gastrostomy with a patent G-tube present characterized by heal thy appearing mucosa. The G-tube points north to the GE junction which is p art of the issue why the J-tube loops into the fundus before passing into t he small bowel - The sharp angulation of the 2nd portion of the duodenum also impairs the ability of the J-tube to pass further into the duodenum. - The J-tube was able to placed past the pylorus and clipped at the kiran ction of the 1st and 2nd portion of the duodenum. I could not advance it furt her. - No specimens collected. Recommendation: - Return patient to hospital [facility] for ongoing care. - Ok to try and use the J-tube today. - I am concerned the conduit is obstructed as the patient could not emp ty it today as she usually does. I will have Dr. Yao address this with her. - AM plain film to assess J-tube position. - If the imaging again shows the J-tube to be re-coiled into the stomac h then I would recommend a surgically placed J-tube for feeding with a G- tube used for venting of the stomach if needed. - Thank you for allowing me to be involved in the care of your patient. Attending Participation: I personally performed the entire procedure without the assistance of a fellow, resident or surg ical mechanic assistant. Alex Leonard MD Alex Leonard MD 12/30/2016 12:04:02 PM Number of Addenda: 0 Note Initiated On: 12/30/2016 9:38 AM [email or web address]
[2016-12-30] MEDS ORDERED: fentaNYL 100 MCG/2 ML INJ ONE (12:39)
[2016-12-30] MEDS: fentaNYL 100 MCG/2 ML INJ IVP PRN ×2 (12:41→13:03)
--- NOTE | 2016-12-30 17:01 | ASMTCMCOM ---
CM Note CM Note Notes: NIKKY spoke w/ Nancy from [facility] regarding d/c POC. Nancy was unable to make contact w/ [facility] because office was closed for . CM to follow. Date Signed: 12/30/2016 05:00 PM Electronically Signed By:BRENDA Farah
--- NOTE | 2016-12-30 19:57 | SOAPPROG ---
SOAP Progress Note Assessment/Plan: Assessment:Jtube replaced into duodenum and clipped by Dr. Leonard. Patient seen in PACU - unable to cannulate stoma again. Recannulated with a 20fr Coudet and irrigated of large mucus/succus with immediate relief. GI findings discussed with Dr. Leonard as well - understood that this is at best a temporary bandaid. Patient seen later this evening as well. She was unable to cannulate her ostomy again - a Coudet was able to be easily replaced and irrigated again and left to drainage bag this time. We extensively discussed her current issues ( malnutrition, gastroparesis, cont ileostomy dysfunction, ad terminal makeup operator solution which will likely include a surgical j-tube assuming small bowel function normal - to that end, will pursue SBFT tomorrow, insurance constraints, depression, ad terminal makeup operator goals and concerns regarding her next med-surg road blocks ). They also discussed concerns about their meeting with the CM yesterday - will have patient rep investigate further. Plan for SBFT tomorrow - assess gastric and SB motility - if normal small bowel function, will plan for permanent surgical J tube - would like to be able to provide consistent nutritional support prior if bandaid solution holds - else to be done on this admission. Requested for family to provide prior care providers info in [facility] to discuss as well. >90 minutes spent with patient and family throughout day as well as care team. Extensive questions entertained. no complaints. tube repositioned in fluoro yesterday again. tube feeding tolerated yesterday at 20cc. she stopped it for a few hours overnight. PEJ site pain slightly better. able to cannulate stoma again. KUB with tube retraction again toward pylorus this am. will review with GI options of clipping catheter. if all else fails, may need to consider a surgical j-tube option. will continue to work with insurance on feeding approval. jtube clogged last mike - unable to be flushed by staff. pain slightly better at PEJ insertion site. avss. comfortable. abd soft, tender tube site. no erythema. difficulty flushing tube with water/soda... gtube disconnected. ileostomy cath removed - difficulty placing stiffer catheter. will check kub. tube feeding snafu noted - will continue to work with protective services social worker. additional CM issues noted as well. diet when able. cont reglan for now. pt seen early today in rads (J tube retracted into stomach last mike). c/o pain from PEJ placement. No stoma issues with catheter in place. avss. comfortable , appears depressed. abd dist, soft, tube secure. PEG bag with gastric content. ileostomy with normal succus. Tube able to be manipulated back into small bowel by rads successfully. Will plan to start j tube feeds today. continue gastric decompression. will add reglan scheduled. care plan discussed with pt and nursing staff. continued gastric decompression with plans to assess gastric motility at later time. will reattempt to cannulate ileostomy prior to discharge in the next couple of days. will leave to gravity drainage until then. Plan: 12/26/16 18:59 12/27/16 14:15 12/28/16 09:29 12/29/16 08:20 12/30/16 19:48 Objective: Vital Signs Temp Pulse Resp BP Pulse Ox 36.8 C 45 L 12 82/48 L 95 12/30/16 17:59 12/30/16 17:59 12/30/16 17:59 12/30/16 17:59 12/30/16 17:59 Laboratory Results 12/25/16 12:00 12/25/16 12:00 12/29/16 12/30/16 12/31/16 05:59 05:59 05:59 Intake Total 1238 1266 240 Balance 1238 1266 240 ICD10 Worksheet Patient Problems: Problems Problem Status Onset Abdominal abscess Acute
[2016-12-31] MEDS: HYDROmorphONE/DILAUDID 1 MG/ML INJ IVP PRN ×10 (05:37→23:14)
[2016-12-31] MEDS: METOCLOPRAMIDE 10 MG/10 ML UDL PO SCH ×4 (05:37→20:22)
[2016-12-31] MEDS: D5W 1/2 NS W/ 20 KCl/L 1,000 ML IV SCH ×2 (10:42→23:14)
--- NOTE | 2016-12-31 11:27 | SOAPPROG ---
SOAP Progress Note Assessment/Plan: Assessment: 1. Malnutrition 2. Abdominal pain and bloating 3. Malfunctioning G-J tube 4. 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 SBFT today 2. Will likely need G-tube venting of stomach and if SBFT shows no obstruction and reasonable motility then will move towards surgical J-tube 3. I would not recommend restarting tube feeds until after SBFT completed 4. May need TPN if we can not get her to tolerate J-tube feeding through a surgically placed J-tube with gastric venting. 12/31/16 11:19 Subjective: CC: Bloated. Not tolerating J-tube feeds. Reports larger residuals with nursing aspirates of J-tube Ongoing abdominal pain Conduit is draining to bag with red rubber catheter Objective: Vital Signs Temp Pulse Resp BP Pulse Ox 36.9 C 45 L 16 104/57 L 94 12/31/16 08:00 12/31/16 08:00 12/31/16 08:00 12/31/16 08:00 12/31/16 08:00 Laboratory Results 12/25/16 12:00 12/25/16 12:00 12/30/16 12/31/16 01/01/17 05:59 05:59 05:59 Intake Total 1266 1158 Output Total 800 Balance 1266 358 Physical Exam - Physical Exam General Appearance: cachetic, thin EENT: normal ENT inspection Neck: supple Respiratory: lungs clear Cardiac/Chest: regular rate, rhythm Abdomen: distended, other (Conduit to drainage. G-J tube site C/D/I. Hypoactive bowel sounds. Generalized tenderness.) ICD10 Worksheet Patient Problems: Problems Problem Status Onset Abdominal abscess Acute
[2016-12-31] MEDS: ONDANSETRON 4 MG/2 ML VIAL IVP PRN (15:58)
--- NOTE | 2016-12-31 21:09 | SOAPPROG ---
SOAP Progress Note Assessment/Plan: Assessment: decreased stoma output throughout day. SBFT in process. normal esophagus. Pain on initial gastric filling with small contrast into a markedly dilated duodenum toward midportion. eventual passage to jejunum with hang up proximal jejunum initially. patient seen in room after above in process. current initial images all reviewed with rads. there is also note retained succus in pouch noted. this was subsequently irrigated for appx 500-600cc output with relief of crampy symptoms - gastrograffin place at this time for possible diagnostic and therapeutic benefit. physical exam otherwise unchanged. 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 This along with her initial SBFT images may better explain her impaired stomach emptying concerns ( duodenal obstruction with GOO rather than gastroparesis) with J tube retraction. This would also be consistent with her ongoing pain with feeding in the proximal duodenum as opposed to her short term relief with distal duodenal feeds. her slow jejunal emptying as seen on her present images is likely best explained by her poor functioning ileal conduit which I suspect will be improved on her next image. Pending review of her final images tomorrow , I am leaning toward proceeding with a necessary surgical j-tube along with surgical gastrojejunostomy. This may help provide relief of any permutation of concerns she may currently have (SMA syndrome, concerns for gastroparesis, gastric venting and permanent jejunal feeding). If simply SMA syndrome, all tubes can be removed once weight gained. If gastroparesis, she is vented and nourished. She will still need future addressing of her mechanical ileal conduit concerns - this will require specialist eval by her initial colorectal surgeon. I reviewed these findings with patient and mom and later with Dr. Leonard. Final reccs to follow tomorrow. Jtube replaced into duodenum and clipped by Dr. Leonard. Patient seen in PACU - unable to cannulate stoma again. Recannulated with a 20fr Coudet and irrigated of large mucus/succus with immediate relief. GI findings discussed with Dr. Leonard as well - understood that this is at best a temporary bandaid. Patient seen later this evening as well. She was unable to cannulate her ostomy again - a Coudet was able to be easily replaced and irrigated again and left to drainage bag this time. 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 They also discussed concerns about their meeting with the CM yesterday - will have patient rep investigate further. Plan for SBFT tomorrow - assess gastric and SB motility - if normal small bowel function, will plan for permanent surgical J tube - would like to be able to provide consistent nutritional support prior if bandaid solution holds - else to be done on this admission. Requested for family to provide prior care providers info in [facility] to discuss as well. >90 minutes spent with patient and family throughout day as well as care team. Extensive questions entertained. no complaints. tube repositioned in fluoro yesterday again. tube feeding tolerated yesterday at 20cc. she stopped it for a few hours overnight. PEJ site pain slightly better. able to cannulate stoma again. KUB with tube retraction again toward pylorus this am. will review with GI options of clipping catheter. if all else fails, may need to consider a surgical j-tube option. will continue to work with insurance on feeding approval. jtube clogged last mike - unable to be flushed by staff. pain slightly better at PEJ insertion site. avss. comfortable. abd soft, tender tube site. no erythema. difficulty flushing tube with water/soda... gtube disconnected. ileostomy cath removed - difficulty placing stiffer catheter. will check kub. tube feeding snafu noted - will continue to work with social work faculty member. additional CM issues noted as well. diet when able. cont reglan for now. pt seen early today in rads (J tube retracted into stomach last mike). c/o pain from PEJ placement. No stoma issues with catheter in place. avss. comfortable , appears depressed. abd dist, soft, tube secure. PEG bag with gastric content. ileostomy with normal succus. Tube able to be manipulated back into small bowel by rads successfully. Will plan to start j tube feeds today. continue gastric decompression. will add reglan scheduled. care plan discussed with pt and nursing staff. continued gastric decompression with plans to assess gastric motility at later time. will reattempt to cannulate ileostomy prior to discharge in the next couple of days. will leave to gravity drainage until then. Plan: 12/26/16 18:59 12/27/16 14:15 12/28/16 09:29 12/29/16 08:20 12/30/16 19:48 12/31/16 20:56 Objective: Vital Signs Temp Pulse Resp BP Pulse Ox 36.6 C 80 14 93/61 L 96 12/31/16 19:23 12/31/16 19:23 12/31/16 19:23 12/31/16 19:23 12/31/16 19:23 Laboratory Results 12/25/16 12:00 12/25/16 12:00 12/30/16 12/31/16 01/01/17 05:59 05:59 05:59 Intake Total 1266 1158 800 Output Total 800 1600 Balance 1266 358 -800 ICD10 Worksheet Patient Problems: Problems Problem Status Onset Abdominal abscess Acute
[2017-01-01] MEDS: METOCLOPRAMIDE 10 MG/10 ML UDL PO SCH ×4 (08:48→20:32)
[2017-01-01] MEDS: HYDROmorphONE/DILAUDID 1 MG/ML INJ IVP PRN ×9 (09:29→23:02)
[2017-01-01] MEDS: D5W 1/2 NS W/ 20 KCl/L 1,000 ML IV SCH (11:33)
[2017-01-01] MEDS ORDERED: BUPIVACAINE 0.5% 30 ML SDV ONE (14:38)
[2017-01-01] MEDS ORDERED: LR 1,000 ML IV ONE (14:48)
[2017-01-01] MEDS ORDERED: MIDAZOLAM 2 MG/2 ML VIAL ONE (15:11)
[2017-01-01] MEDS ORDERED: fentaNYL 100 MCG/2 ML INJ ONE ×2 (15:18→17:26)
[2017-01-01] MEDS ORDERED: PROPOFOL/EMULSION 500 MG/50 ML BOTTLE IV ONE (15:18)
[2017-01-01] MEDS ORDERED: ONDANSETRON 4 MG/2 ML VIAL IVP PRN (15:57)
[2017-01-01] MEDS ORDERED: NALOXONE HCL 0.4 MG/ML INJ IVP PRN (15:57)
[2017-01-01] MEDS ORDERED: fentaNYL 100 MCG/2 ML INJ IVP PRN (15:57)
[2017-01-01] MEDS ORDERED: ALBUTEROL 3 ML DEYVIAL IH PRN (15:57)
--- NOTE | 2017-01-01 16:01 | PDANEPAE ---
ANE History of Present Illness here for gastrojejunostomy tube ANE Past Medical History - Cardiovascular History Hx Hypertension: No Hx Arrhythmias: No Hx Chest Pain: No Hx Coronary Artery / Peripheral Vascular Disease: No Hx CHF / Valvular Disease: No Hx Palpitations: No - Pulmonary History Hx COPD: No Hx Asthma/Reactive Airway Disease: No Hx Recent Upper Respiratory Infection: No Hx Oxygen in Use at Home: No Hx Sleep Apnea: No Sleep Apnea Screening Result - Last Documented: Negative - Endocrine History Hx Diabetes: No Hypothyroid: No Hyperthyroid: No Obesity: no - Renal History Hx Renal Disorders: No - Congenital Disorder History Congenital History Comment: congenital bowel obstruction - Chronic Pain History Chronic Pain: Yes - Surgical History Prior Surgeries: multiple ex laps for bowel obstruction ANE Review of Systems Review of systems is: negative Review of Systems: - Exercise capacity Exercise capacity: >=4 METS ANE Patient History - Allergies Allergies/Adverse Reactions: milk Allergy (Verified 12/03/16 10:16) mustard Allergy (Verified 12/02/16 22:25) - Home Medications Home medications: home medication list seen and reviewed Home Medications: Ascorbic Acid [Vitamin C 500 mg (*)] 500 mg PO DAILY 12/03/16 [Last Taken ] Citalopram [CeleXA 20 MG] 20 mg PO HS 12/03/16 [Last Taken 12/24/16] Ondansetron Odt [Zofran Odt 4 mg (*)] 4 mg PO DAILY PRN 12/03/16 [Last Taken 05/10] lamoTRIgine [LamICTAL 100 MG (*)] 100 mg PO HS 12/03/16 [Last Taken 12/24/16] - NPO status NPO Status: no food or drink >8 hours NPO Since - Liquids (Date): 01/01/17 NPO Since - Liquids (Time): 16:00 NPO Since - Solids (Date): 12/29/16 NPO Since - Solids (Time): 16:55 - Anes Hx Anes Hx: no prior problems - Smoking Hx Smoking Status: Never smoked ANE Labs/Vital Signs - Labs Result Diagrams: 12/25/16 12:00 12/25/16 12:00 - Vital Signs Blood Pressure: 82/51 Heart Rate: 54 Respiratory Rate: 14 O2 Sat (%): 93 Height: 170.18 cm Weight: 43.545 kg ANE Physical Exam - Airway Neck exam: FROM Mallampati Score: Class 1 - Pulmonary Pulmonary: no respiratory distress - Cardiovascular Cardiovascular: regular rate and rhythym - ASA Status ASA Status: II ANE Anesthesia Plan Anesthesia Plan: general endotracheal anesthesia
--- NOTE | 2017-01-01 16:07 | ASMTCMCOM ---
CM Note CM Note Notes: Spoke with Nancy at [facility]. Edward spoke to patient's BCBS, patient has no benefit for tube feeds. Edward spoke with patient's mother today re: above. Patient's father is primary on insurance plan. Edward not comfortable speaking with father without patient's permission. Edward will be on site on to work with Case Management, patient and family on possible solutions. Father may need to contact his insurance to see if there are any options for coverage, possible prior auth required? Edward also made this [employer] aware of a company called [employer] that will donate tube feeding pumps and supplies for free. More to be determined on when patient available. Case Mangement will continue to follow. Date Signed: 01/01/2017 04:07 PM Electronically Signed By:Jyothi Mckeon RN
[2017-01-01] MEDS ORDERED: ONDANSETRON 4 MG/2 ML VIAL ONE (17:27)
--- NOTE | 2017-01-01 17:38 | POSTOPPROG ---
Post Op Note Date of Operation: 01/01/17 Surgeon: Richy Yao Edge Bander Operator: Monroe Monaco Anesthesiologist: Sean Schilling Anesthesia: GET(General Endotracheal) Pre-op Diagnosis: Intestinal pseudo-obstruction, possible SMA syndrome, malnutrition Post-op Diagnosis: Same Procedure: Gastrojejunostomy, feeding jejunostomy Findings: Patulous stomach, normal small bowel Inf/Abcess present in the surg proc area at time of surgery?: No EBL: Minimal Complications: no immediate Drains: Other
[2017-01-01] MEDS ORDERED: HYDROmorphONE/DILAUDID 1 MG/ML INJ ONE (17:50)
[2017-01-01] MEDS: LORazepam 2 MG/ML INJ IVP PRN (19:42)
[2017-01-01] MEDS: FAMOTIDINE 20 MG/NACL 50 ML IV SCH (20:32)
[2017-01-01] MEDS: KETOROLAC 15 MG/1 ML SDV IVP PRN (20:32)
[2017-01-02] MEDS: HYDROmorphONE/DILAUDID 1 MG/ML INJ IVP PRN ×12 (00:33→23:13)
[2017-01-02] MEDS: D5W 1/2 NS W/ 20 KCl/L 1,000 ML IV SCH ×2 (04:32→17:42)
--- NOTE | 2017-01-02 04:39 | GOP ---
[f rep st] OPERATIVE REPORT DATE OF OPERATION: 01/01/2017 SURGEON: Richy Yao MD PROCESS LEAD: Monroe Monaco MD. ANESTHESIA: General. ANESTHESIOLOGIST: Sean Schilling MD. 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 PROCEDURE PERFORMED: Reopening of recent laparotomy, gastrojejunostomy, feeding jejunostomy. FINDINGS: See below. 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 Her current anatomy consists of a total abdominal colectomy with continent ileostomy. She was seen approximately a month and half ago with peritonitis for which she underwent an exploratory laparotomy and drainage of abdominal abscess. Throughout her recovery from this procedure, she has continued to lose weight and have progressive failure to thrive with worsening abdominal pain, nausea, vomiting, and inability to tolerate oral intake. Extensive preoperative imaging studies show a markedly dilated stomach with suggestion of possible duodenal obstruction thought possibly from an SMA syndrome with possible underlying gastroparesis as well. Based upon historical findings, she underwent an attempted PEJ placement, which has been difficult maintaining within the jejunum, as well as an inability to provide enteral sustenance. Given the above findings it was opted to proceed with gastrojejunostomy with feeding distal jejunostomy for hopeful definitive management of her myriad of possible diagnoses. Risks and benefits were explained including bleeding, infection, anastomotic leak, persistent gastroparesis, failure of her stomach to empty, as well as others. All questions were answered. She desires to proceed. DESCRIPTION OF PROCEDURE: After general anesthesia was induced, the abdomen was entered through an upper midline laparotomy. The peritoneal cavity was easy to enter without any significant adhesions being identified. The stomach was taken down from the left mid abdomen where a prior feeding tube had been placed. The stomach itself was completely patulous sitting toward the pelvis. No external visible abnormalities were noted. The small bowel was run from the ligament of Treitz toward her ileal pouch. Bowel was all small in caliber with no abnormal findings. The proximal jejunum was easily brought to the posterior wall of the greater curve of the stomach. A stapled gastrojejunostomy was created with a single firing of the TRACY 75 stapler. The stapling end was closed in layers with a running PDS suture. Excellent luminal patency was ensured, as was satisfactory hemostasis. Multiple centimeters downstream, a site was chosen for the percutaneous jejunostomy placement. A feeding jejunostomy catheter was placed through a separate left mid abdominal stab incision and brought into the abdominal cavity. The jejunum was pexed to the left mid abdomen laterally. A jejunotomy was created and the catheter passed distally. The balloon was inflated, bringing the jejunum to the abdominal wall. The anterior wall of the jejunum was secured to the abdominal wall with a running PDS suture. The tube flushed easily with water. Satisfactory hemostasis was assured throughout the abdominal cavity. The midline fascia was closed with a running PDS suture. The skin was closed with Monocryl sutures followed by Dermabond. Local anesthetic was infiltrated. The patient taken to recovery room awake uneventfully. /[id number]/MODL MTDD
[2017-01-02 05:07] LABS: % IMMATURE GRANULYOCYTES 0.3 % (0.0-1.1); ABSOLUTE IMMATURE GRANULOCYTES 0.02 10^3/uL (0.00-0.10); ADD DIFF? NO; ADD MORPH? NO; ADD SCAN? NO; ATYPICAL LYMPHOCYTE FLAG 0 (0-99); FRAGMENT RBC FLAG 0 (0-99); HEMATOCRIT 35.7 % (38.0-47.0); HEMOGLOBIN 12.2 g/dL (12.6-16.3); LEFT SHIFT FLG 0 (0-99); LIPEMIA HEMOLYSIS FLAG 90 (0-99); MEAN CELL HEMOGLOBIN CONCENTR. 34.2 g/dL (32.4-36.7); MEAN CELL VOLUME 87.7 fL (81.5-99.8); MEAN PLATELET VOLUME 9.3 fL (8.7-11.7); PLATELET CLUMPS FLAG 0 (0-99); PLATELET COUNT 284 10^3/uL (150-400); RED BLOOD CELL COUNT 4.07 10^6/uL (4.18-5.33)
[2017-01-02 05:17] LABS: ALANINE AMINOTRANSFERASE 20 IU/L (9-52); ALBUMIN 3.4 g/dL (3.5-5.0); ALKALINE PHOSPHATASE 51 IU/L (38-126); ANION GAP 10 mEq/L (8-16); ASPARTATE AMINOTRANSFERASE 18 IU/L (14-46); BILIRUBIN,TOTAL 0.3 mg/dL (0.1-1.4); CALCIUM 9.3 mg/dL (8.5-10.4); CARBON DIOXIDE 24 mEq/l (22-31); CHLORIDE 102 mEq/L (97-110); CREATININE 0.6 mg/dL (0.6-1.0); GLOMERULAR FILTRATION RATE > 60; GLUCOSE 124 mg/dL (70-100); POTASSIUM 4.5 mEq/L (3.5-5.2); SODIUM 136 mEq/L (134-144)
[2017-01-02] MEDS: METOCLOPRAMIDE 10 MG/10 ML UDL PO SCH ×2 (05:55→13:36)
[2017-01-02] MEDS ORDERED: HYDROCOD/APAP 7.5/325 IN 15ML UDCUP TUBE PRN (08:03)
[2017-01-02] MEDS: FAMOTIDINE 20 MG/NACL 50 ML IV SCH ×2 (10:22→21:29)
[2017-01-02] MEDS: LORazepam 2 MG/ML INJ IVP PRN ×2 (11:54→23:13)
--- NOTE | 2017-01-02 15:31 | ASMTCMCOM ---
CM Note CM Note Notes: SWer attended complex care team meeting today. Discussed Pt's case. Currently it seems Pt's insurance (through her father's plan) will not cover nutrition needs. Decided that [facility] and [employer] would assist Pt. in applying for Medicaid. Medicaid would likely cover nutrition/supplies that Pt. needs. Pt. gave SWer explicit verbal consent to SWer today to have Medicaid reps come and speak with her about application. SWer let [employer] know about plan. SWer to follow case tomorrow. Date Signed: 01/02/2017 03:30 PM Electronically Signed By:Melyssa Silva LCSW
--- NOTE | 2017-01-02 19:09 | SOAPPROG ---
SOAP Progress Note Assessment/Plan: Assessment: pod#1 decent night s/p G-J and j tube. pain fair control. no nausea. voided and ambulated. afebrile. abd soft, flat, approp incis tenderness. gtube - gastric. ileostomy - old barium. j tube secure. doing well overall. start jtube feeds with intent to advance toward goal as able. elixir lortab. will leave ileostomy cannulated until feeling better. will clamp gtube in the next couple of days. discussed in detail with patient, fiance and nursing staff. decreased stoma output throughout day. SBFT in process. normal esophagus. Pain on initial gastric filling with small contrast into a markedly dilated duodenum toward midportion. eventual passage to jejunum with hang up proximal jejunum initially. patient seen in room after above in process. current initial images all reviewed with rads. there is also note retained succus in pouch noted. this was subsequently irrigated for appx 500-600cc output with relief of crampy symptoms - gastrograffin place at this time for possible diagnostic and therapeutic benefit. physical exam otherwise unchanged. 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 This along with her initial SBFT images may better explain her impaired stomach emptying concerns (duodenal obstruction with GOO rather than gastroparesis) with J tube retraction. This would also be consistent with her ongoing pain with feeding in the proximal duodenum as opposed to her short term relief with distal duodenal feeds. her slow jejunal emptying as seen on her present images is likely best explained by her poor functioning ileal conduit which I suspect will be improved on her next image. Pending review of her final images tomorrow, I am leaning toward proceeding with a necessary surgical j-tube along with surgical gastrojejunostomy. This may help provide relief of any permutation of concerns she may currently have ( SMA syndrome, concerns for gastroparesis, gastric venting and permanent jejunal feeding). If simply SMA syndrome, all tubes can be removed once weight gained. If gastroparesis, she is vented and nourished. She will still need future addressing of her mechanical ileal conduit concerns - this will require specialist eval by her initial colorectal surgeon. I reviewed these findings with patient and mom and later with Dr. Leonard. Final reccs to follow tomorrow. Jtube replaced into duodenum and clipped by Dr. Leonard. Patient seen in PACU - unable to cannulate stoma again. Recannulated with a 20fr Coudet and irrigated of large mucus/succus with immediate relief. GI findings discussed with Dr. Leonard as well - understood that this is at best a temporary bandaid. Patient seen later this evening as well. She was unable to cannulate her ostomy again - a Coudet was able to be easily replaced and irrigated again and left to drainage bag this time. We extensively discussed her current issues ( malnutrition, gastroparesis, cont ileostomy dysfunction, jail solution which will likely include a surgical j-tube assuming small bowel function normal - to that end, will pursue SBFT tomorrow, insurance constraints, depression, development writer goals and concerns regarding her next med-surg road blocks ). They also discussed concerns about their meeting with the CM yesterday - will have patient rep investigate further. Plan for SBFT tomorrow - assess gastric and SB motility - if normal small bowel function, will plan for permanent surgical J tube - would like to be able to provide consistent nutritional support prior if bandaid solution holds - else to be done on this admission. Requested for family to provide prior care providers info in [facility] to discuss as well. >90 minutes spent with patient and family throughout day as well as care team. Extensive questions entertained. no complaints. tube repositioned in fluoro yesterday again. tube feeding tolerated yesterday at 20cc. she stopped it for a few hours overnight. PEJ site pain slightly better. able to cannulate stoma again. KUB with tube retraction again toward pylorus this am. will review with GI options of clipping catheter. if all else fails, may need to consider a surgical j-tube option. will continue to work with insurance on feeding approval. jtube clogged last mike - unable to be flushed by staff. pain slightly better at PEJ insertion site. avss. comfortable. abd soft, tender tube site. no erythema. difficulty flushing tube with water/soda... gtube disconnected. ileostomy cath removed - difficulty placing stiffer catheter. will check kub. tube feeding snafu noted - will continue to work with healthcare social worker. additional CM issues noted as well. diet when able. cont reglan for now. pt seen early today in rads (J tube retracted into stomach last mike). c/o pain from PEJ placement. No stoma issues with catheter in place. avss. comfortable , appears depressed. abd dist, soft, tube secure. PEG bag with gastric content. ileostomy with normal succus. Tube able to be manipulated back into small bowel by rads successfully. Will plan to start j tube feeds today. continue gastric decompression. will add reglan scheduled. care plan discussed with pt and nursing staff. continued gastric decompression with plans to assess gastric motility at later time. will reattempt to cannulate ileostomy prior to discharge in the next couple of days. will leave to gravity drainage until then. Plan: 12/26/16 18:59 12/27/16 14:15 12/28/16 09:29 12/29/16 08:20 12/30/16 19:48 12/31/16 20:56 01/02/17 19:06 Objective: Vital Signs Temp Pulse Resp BP Pulse Ox 36.5 C 62 18 112/72 96 01/02/17 16:18 01/02/17 16:18 01/02/17 16:18 01/02/17 16:18 01/02/17 16:18 Laboratory Results 01/02/17 04:33 01/02/17 04:33 01/01/17 01/02/17 01/03/17 05:59 05:59 05:59 Intake Total 1688 2705 980 Output Total 3570 932 220 Balance -1462 1773 760 ICD10 Worksheet Patient Problems: Problems Problem Status Onset Abdominal abscess Acute
[2017-01-02] MEDS: HYDROCOD/APAP 7.5/325 IN 15ML UDCUP TUBE SCH (21:28)
[2017-01-03] MEDS: HYDROCOD/APAP 7.5/325 IN 15ML UDCUP TUBE SCH ×4 (04:00→22:01)
[2017-01-03] MEDS: D5W 1/2 NS W/ 20 KCl/L 1,000 ML IV SCH (05:13)
[2017-01-03] MEDS: HYDROmorphONE/DILAUDID 1 MG/ML INJ IVP PRN ×8 (08:21→22:01)
[2017-01-03] MEDS: FAMOTIDINE 20 MG/NACL 50 ML IV SCH ×2 (08:22→22:01)
--- NOTE | 2017-01-03 16:16 | ASMTCMCOM ---
CM Note CM Note Notes: Today SWer learned more from the team about Pt's benefits for tube feeds and nutrition. Nancy at [facility] provided extensive research and coordination. This is what we currently know: 1) Pt. indeed must be on Vivonex 10 nutrition feeds per regina Terrazas [phone] 2) Team is working to increase Pt's feeds to goal-level. 3) [facility] does have benefits for Vivonex 10 nutrition. Nurse disease case manager at [facility] is Archana Denney [id number]. Archana will be confirming that there are benefits with her cnc supervisor at [facility]. 4) [facility] to provide nutrition supplies and Vivonex 10. Will also provide home health RN and ios architect. 5) SWer helped to coordinate Medicaid application as secondary insurance for Pt. [employer] did meet w/ Pt today. Pt. may have eating disorder. Bedside RNs have noticed Pt. 'clamping off' her feeds. SWer tried to consult Claudia Milner, behavioral health nurse today, but Claudia not available. SWer not available to spend time on psychosocial eval today. If staff available, Pt. may benefit from psychosocial eval and intervention w/ Pt. Will Rinaldi in the room today w/ Pt. CM to follow for d/c w/ home health RN and infusion services through [facility]. Date Signed: 01/03/2017 04:15 PM Electronically Signed By:Melyssa Silva LCSW
--- NOTE | 2017-01-03 17:01 | SOAPPROG ---
SOAP Progress Note Assessment/Plan: Assessment: pod#2 s/p GJ and J tube. teary eyed today. pain fair control still. no nausea. ambulating. working on TF solutions with mcaid. kulwinder food at 20cc/hr. avss. abd soft, min dist. incis clean. tubes all secure - g tube gastrobilious. ileostomy - old barium in tube, thick succus. slow progress. gtube clamp today with po oxycodone for pain. clears or fulls. knows to burp gtube if distended or uncomfortable. if tolerates, can consider switching to gtube feeds or all po intake at some point. will leave ileostomy cath in place until above tolerated. reviewed with patient, fiance and nursing staff. pod#1 decent night s/p G-J and j tube. pain fair control. no nausea. voided and ambulated. afebrile. abd soft, flat, approp incis tenderness. gtube - gastric. ileostomy - old barium. j tube secure. doing well overall. start jtube feeds with intent to advance toward goal as able. elixir lortab. will leave ileostomy cannulated until feeling better. will clamp gtube in the next couple of days. discussed in detail with patient, fiance and nursing staff. decreased stoma output throughout day. SBFT in process. normal esophagus. Pain on initial gastric filling with small contrast into a markedly dilated duodenum toward midportion. eventual passage to jejunum with hang up proximal jejunum initially. patient seen in room after above in process. current initial images all reviewed with rads. there is also note retained succus in pouch noted. this was subsequently irrigated for appx 500-600cc output with relief of crampy symptoms - gastrograffin place at this time for possible diagnostic and therapeutic benefit. physical exam otherwise unchanged. 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 This along with her initial SBFT images may better explain her impaired stomach emptying concerns (duodenal obstruction with GOO rather than gastroparesis) with J tube retraction. This would also be consistent with her ongoing pain with feeding in the proximal duodenum as opposed to her short term relief with distal duodenal feeds. her slow jejunal emptying as seen on her present images is likely best explained by her poor functioning ileal conduit which I suspect will be improved on her next image. Pending review of her final images tomorrow, I am leaning toward proceeding with a necessary surgical j-tube along with surgical gastrojejunostomy. This may help provide relief of any permutation of concerns she may currently have ( SMA syndrome, concerns for gastroparesis, gastric venting and permanent jejunal feeding). If simply SMA syndrome, all tubes can be removed once weight gained. If gastroparesis, she is vented and nourished. She will still need future addressing of her mechanical ileal conduit concerns - this will require specialist eval by her initial colorectal surgeon. I reviewed these findings with patient and mom and later with Dr. Leonard. Final reccs to follow tomorrow. Jtube replaced into duodenum and clipped by Dr. Leonard. Patient seen in PACU - unable to cannulate stoma again. Recannulated with a 20fr Coudet and irrigated of large mucus/succus with immediate relief. GI findings discussed with Dr. Leonard as well - understood that this is at best a temporary bandaid. Patient seen later this evening as well. She was unable to cannulate her ostomy again - a Coudet was able to be easily replaced and irrigated again and left to drainage bag this time. We extensively discussed her current issues ( malnutrition, gastroparesis, cont ileostomy dysfunction, correction solution which will likely include a surgical j-tube assuming small bowel function normal - to that end, will pursue SBFT tomorrow, insurance constraints, depression, correction goals and concerns regarding her next med-surg road blocks ). They also discussed concerns about their meeting with the yesterday - will have patient rep investigate further. Plan for SBFT tomorrow - assess gastric and SB motility - if normal small bowel function, will plan for permanent surgical J tube - would like to be able to provide consistent nutritional support prior if bandaid solution holds - else to be done on this admission. Requested for family to provide prior care providers info in [facility] to discuss as well. >90 minutes spent with patient and family throughout day as well as care team. Extensive questions entertained. no complaints. tube repositioned in fluoro yesterday again. tube feeding tolerated yesterday at 20cc. she stopped it for a few hours overnight. PEJ site pain slightly better. able to cannulate stoma again. KUB with tube retraction again toward pylorus this am. will review with GI options of clipping catheter. if all else fails, may need to consider a surgical j-tube option. will continue to work with insurance on feeding approval. jtube clogged last mike - unable to be flushed by staff. pain slightly better at PEJ insertion site. avss. comfortable. abd soft, tender tube site. no erythema. difficulty flushing tube with water/soda... gtube disconnected. ileostomy cath removed - difficulty placing stiffer catheter. will check kub. tube feeding snafu noted - will continue to work with social problems specialist. additional CM issues noted as well. diet when able. cont reglan for now. pt seen early today in rads (J tube retracted into stomach last mike). c/o pain from PEJ placement. No stoma issues with catheter in place. avss. comfortable , appears depressed. abd dist, soft, tube secure. PEG bag with gastric content. ileostomy with normal succus. Tube able to be manipulated back into small bowel by rads successfully. Will plan to start j tube feeds today. continue gastric decompression. will add reglan scheduled. care plan discussed with pt and nursing staff. continued gastric decompression with plans to assess gastric motility at later time. will reattempt to cannulate ileostomy prior to discharge in the next couple of days. will leave to gravity drainage until then. Plan: 12/26/16 18:59 12/27/16 14:15 12/28/16 09:29 12/29/16 08:20 12/30/16 19:48 12/31/16 20:56 01/02/17 19:06 01/03/17 16:58 Objective: Vital Signs Temp Pulse Resp BP Pulse Ox 36.6 C 65 18 98/46 L 98 01/03/17 16:00 01/03/17 16:00 01/03/17 16:00 01/03/17 16:00 01/03/17 16:00 Laboratory Results 01/02/17 04:33 01/02/17 04:33 01/02/17 01/03/17 01/04/17 05:59 05:59 05:59 Intake Total 3156 0241 Output Total 197 3990 Balance 1773 -116 ICD10 Worksheet Patient Problems: Problems Problem Status Onset Abdominal abscess Acute
[2017-01-04] MEDS: oxyCODONE IR 5 MG TAB PO PRN ×3 (00:20→19:00)
[2017-01-04] MEDS: HYDROmorphONE/DILAUDID 1 MG/ML INJ IVP PRN (00:20)
[2017-01-04] MEDS: HYDROCOD/APAP 7.5/325 IN 15ML UDCUP TUBE SCH ×4 (04:14→23:52)
[2017-01-04] MEDS: D5W 1/2 NS W/ 20 KCl/L 1,000 ML IV SCH (04:19)
[2017-01-04] MEDS: KETOROLAC 15 MG/1 ML SDV IVP PRN ×2 (09:14→16:11)
[2017-01-04] MEDS: FAMOTIDINE 20 MG/NACL 50 ML IV SCH (09:14)
--- NOTE | 2017-01-04 10:16 | SOAPPROG ---
SOAP Progress Note Assessment/Plan: Assessment: pod#3 s/p GJ and J tube. tolerating J tube feeds at goal. burped G tube last mike with relief of discomfort. pain better with oxycodone. received mcaid number. avss. comfortable. abd soft. sites all clean. ostomy thin succus. doing very well. will obtain gastrograffin study of gastric function today. goal for dc to home tomorrow. will try to remove ileostomy catheter tomorrow. better spirits. excellent progress. reviewed with patient , fiance and nursing staff. pod#2 s/p GJ and J tube. teary eyed today. pain fair control still. no nausea. ambulating. working on TF solutions with mcaid. kulwinder food at 20cc/hr. avss. abd soft, min dist. incis clean. tubes all secure - g tube gastrobilious. ileostomy - old barium in tube, thick succus. slow progress. gtube clamp today with po oxycodone for pain. clears or fulls. knows to burp gtube if distended or uncomfortable. if tolerates, can consider switching to gtube feeds or all po intake at some point. will leave ileostomy cath in place until above tolerated. reviewed with patient, fiance and nursing staff. pod#1 decent night s/p G-J and j tube. pain fair control. no nausea. voided and ambulated. afebrile. abd soft, flat, approp incis tenderness. gtube - gastric. ileostomy - old barium. j tube secure. doing well overall. start jtube feeds with intent to advance toward goal as able. elixir lortab. will leave ileostomy cannulated until feeling better. will clamp gtube in the next couple of days. discussed in detail with patient, fiance and nursing staff. decreased stoma output throughout day. SBFT in process. normal esophagus. Pain on initial gastric filling with small contrast into a markedly dilated duodenum toward midportion. eventual passage to jejunum with hang up proximal jejunum initially. patient seen in room after above in process. current initial images all reviewed with rads. there is also note retained succus in pouch noted. this was subsequently irrigated for appx 500-600cc output with relief of crampy symptoms - gastrograffin place at this time for possible diagnostic and therapeutic benefit. physical exam otherwise unchanged. 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 This along with her initial SBFT images may better explain her impaired stomach emptying concerns (duodenal obstruction with GOO rather than gastroparesis) with J tube retraction. This would also be consistent with her ongoing pain with feeding in the proximal duodenum as opposed to her short term relief with distal duodenal feeds. her slow jejunal emptying as seen on her present images is likely best explained by her poor functioning ileal conduit which I suspect will be improved on her next image. Pending review of her final images tomorrow, I am leaning toward proceeding with a necessary surgical j-tube along with surgical gastrojejunostomy. This may help provide relief of any permutation of concerns she may currently have ( SMA syndrome, concerns for gastroparesis, gastric venting and permanent jejunal feeding). If simply SMA syndrome, all tubes can be removed once weight gained. If gastroparesis, she is vented and nourished. She will still need future addressing of her mechanical ileal conduit concerns - this will require specialist eval by her initial colorectal surgeon. I reviewed these findings with patient and mom and later with Dr. Leonard. Final reccs to follow tomorrow. Jtube replaced into duodenum and clipped by Dr. Leonard. Patient seen in PACU - unable to cannulate stoma again. Recannulated with a 20fr Coudet and irrigated of large mucus/succus with immediate relief. GI findings discussed with Dr. Leonard as well - understood that this is at best a temporary bandaid. Patient seen later this evening as well. She was unable to cannulate her ostomy again - a Coudet was able to be easily replaced and irrigated again and left to drainage bag this time. We extensively discussed her current issues ( malnutrition, gastroparesis, cont ileostomy dysfunction, intermediate frame tender solution which will likely include a surgical j-tube assuming small bowel function normal - to that end, will pursue SBFT tomorrow, insurance constraints, depression, intermediate frame tender goals and concerns regarding her next med-surg road blocks ). They also discussed concerns about their meeting with the CM yesterday - will have patient rep investigate further. Plan for SBFT tomorrow - assess gastric and SB motility - if normal small bowel function, will plan for permanent surgical J tube - would like to be able to provide consistent nutritional support prior if bandaid solution holds - else to be done on this admission. Requested for family to provide prior care providers info in [facility] to discuss as well. >90 minutes spent with patient and family throughout day as well as care team. Extensive questions entertained. no complaints. tube repositioned in fluoro yesterday again. tube feeding tolerated yesterday at 20cc. she stopped it for a few hours overnight. PEJ site pain slightly better. able to cannulate stoma again. KUB with tube retraction again toward pylorus this am. will review with GI options of clipping catheter. if all else fails, may need to consider a surgical j-tube option. will continue to work with insurance on feeding approval. jtube clogged last mike - unable to be flushed by staff. pain slightly better at PEJ insertion site. avss. comfortable. abd soft, tender tube site. no erythema. difficulty flushing tube with water/soda... gtube disconnected. ileostomy cath removed - difficulty placing stiffer catheter. will check kub. tube feeding snafu noted - will continue to work with social security benefits interviewer. additional CM issues noted as well. diet when able. cont reglan for now. pt seen early today in rads (J tube retracted into stomach last mike). c/o pain from PEJ placement. No stoma issues with catheter in place. avss. comfortable , appears depressed. abd dist, soft, tube secure. PEG bag with gastric content. ileostomy with normal succus. Tube able to be manipulated back into small bowel by rads successfully. Will plan to start j tube feeds today. continue gastric decompression. will add reglan scheduled. care plan discussed with pt and nursing staff. continued gastric decompression with plans to assess gastric motility at later time. will reattempt to cannulate ileostomy prior to discharge in the next couple of days. will leave to gravity drainage until then. Plan: 12/26/16 18:59 12/27/16 14:15 12/28/16 09:29 12/29/16 08:20 12/30/16 19:48 12/31/16 20:56 01/02/17 19:06 01/03/17 16:58 01/04/17 10:14 Objective: Vital Signs Temp Pulse Resp BP Pulse Ox 37.2 C 55 L 14 99/63 L 96 01/04/17 08:00 01/04/17 08:00 01/04/17 08:00 01/04/17 08:00 01/04/17 08:00 Laboratory Results 01/02/17 04:33 01/02/17 04:33 01/03/17 01/04/17 01/05/17 05:59 05:59 05:59 Intake Total 1925 3227 Output Total 2 350 Balance -116 2877 ICD10 Worksheet Patient Problems: Problems Problem Status Onset Abdominal abscess Acute
[2017-01-04] MEDS: ONDANSETRON 4 MG/2 ML VIAL IVP PRN ×2 (13:51→18:41)
--- NOTE | 2017-01-04 16:00 | ASMTCMCOM ---
CM Note CM Note Notes: CM contacted [employer], they have nutrition, supplies and nursing ready for pt if she discharges on Friday. They have pt's Medicaid # ([id number]) that will excelsior picker the remainder of the balance not covered by [employer] ins. She should not have any copay, but if she does is typically $1-$3. Notified pt of this and she is ok with plan. Pt staying in dorm: [address] [place] [address] Charlette Orellana Date Signed: 01/04/2017 03:59 PM Electronically Signed By:Claudia Mccurdy RN
[2017-01-04] MEDS: FAMOTIDINE 20 MG TAB PO SCH (23:52)
[2017-01-05] MEDS: HYDROCOD/APAP 7.5/325 IN 15ML UDCUP TUBE SCH ×4 (04:19→21:58)
[2017-01-05] MEDS: FAMOTIDINE 20 MG TAB PO SCH ×2 (07:56→21:58)
[2017-01-05] MEDS: ONDANSETRON 4 MG/2 ML VIAL IVP PRN ×2 (07:56→12:38)
[2017-01-05] MEDS: KETOROLAC 15 MG/1 ML SDV IVP PRN ×2 (08:01→19:47)
[2017-01-05] MEDS: oxyCODONE IR 5 MG TAB PO PRN ×2 (08:01→15:24)
--- NOTE | 2017-01-05 11:27 | SOAPPROG ---
SOAP Progress Note Assessment/Plan: Assessment: pod#4 s/p GJ and J tube. tolerating J tube feeds at goal without cramps. needing to burp G tube regularly. UGI with good sb transit, large stomach persists, difficult to assess gj anast, still preferential duod emptying. pain controlled with oxycodone. received mcaid number-will be able to coordinate home tube feeds for friday. avss. comfortable. abd soft. sites all clean. ostomy thin succus. doing very well overall. still unclear if gastoparesis with SMA syndrome or both. will leave G tube clamped and restart reglan - has approp nutritional support - if SMA syndrome, may improve over the next few weeks, if dysmotility secondary to chronic subclinical obstruction, may improve as well - if gastroparesis, outlook not as good. ileostomy catheter removed - discussed goals for intermittent cannulation and ongoing irrigation as needed. goal for dc to home tomorrow. discussed role for outpatient psych/nutr counseling -while longstanding functional component to eating, this also appears to be somewhat multifactorial as well given the chronicity of her medical issues. reviewed with patient, fiance and nursing staff. pod#3 s/p GJ and J tube. tolerating J tube feeds at goal. burped G tube last mike with relief of discomfort. pain better with oxycodone. received mcaid number. avss. comfortable. abd soft. sites all clean. ostomy thin succus. doing very well. will obtain gastrograffin study of gastric function today. goal for dc to home tomorrow. will try to remove ileostomy catheter tomorrow. better spirits. excellent progress. reviewed with patient, fiance and nursing staff. pod#2 s/p GJ and J tube. teary eyed today. pain fair control still. no nausea. ambulating. working on TF solutions with mcaid. kulwinder food at 20cc/hr. avss. abd soft, min dist. incis clean. tubes all secure - g tube gastrobilious. ileostomy - old barium in tube, thick succus. slow progress. gtube clamp today with po oxycodone for pain. clears or fulls. knows to burp gtube if distended or uncomfortable. if tolerates, can consider switching to gtube feeds or all po intake at some point. will leave ileostomy cath in place until above tolerated. reviewed with patient, fiance and nursing staff. pod#1 decent night s/p G-J and j tube. pain fair control. no nausea. voided and ambulated. afebrile. abd soft, flat, approp incis tenderness. gtube - gastric. ileostomy - old barium. j tube secure. doing well overall. start jtube feeds with intent to advance toward goal as able. elixir lortab. will leave ileostomy cannulated until feeling better. will clamp gtube in the next couple of days. discussed in detail with patient, fiance and nursing staff. decreased stoma output throughout day. SBFT in process. normal esophagus. Pain on initial gastric filling with small contrast into a markedly dilated duodenum toward midportion. eventual passage to jejunum with hang up proximal jejunum initially. patient seen in room after above in process. current initial images all reviewed with rads. there is also note retained succus in pouch noted. this was subsequently irrigated for appx 500-600cc output with relief of crampy symptoms - gastrograffin place at this time for possible diagnostic and therapeutic benefit. physical exam otherwise unchanged. 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 This along with her initial SBFT images may better explain her impaired stomach emptying concerns (duodenal obstruction with GOO rather than gastroparesis) with J tube retraction. This would also be consistent with her ongoing pain with feeding in the proximal duodenum as opposed to her short term relief with distal duodenal feeds. her slow jejunal emptying as seen on her present images is likely best explained by her poor functioning ileal conduit which I suspect will be improved on her next image. Pending review of her final images tomorrow, I am leaning toward proceeding with a necessary surgical j-tube along with surgical gastrojejunostomy. This may help provide relief of any permutation of concerns she may currently have ( SMA syndrome, concerns for gastroparesis, gastric venting and permanent jejunal feeding). If simply SMA syndrome, all tubes can be removed once weight gained. If gastroparesis, she is vented and nourished. She will still need future addressing of her mechanical ileal conduit concerns - this will require specialist eval by her initial colorectal surgeon. I reviewed these findings with patient and mom and later with Dr. Leonard. Final reccs to follow tomorrow. Jtube replaced into duodenum and clipped by Dr. Leonard. Patient seen in PACU - unable to cannulate stoma again. Recannulated with a 20fr Coudet and irrigated of large mucus/succus with immediate relief. GI findings discussed with Dr. Leonard as well - understood that this is at best a temporary bandaid. Patient seen later this evening as well. She was unable to cannulate her ostomy again - a Coudet was able to be easily replaced and irrigated again and left to drainage bag this time. 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 They also discussed concerns about their meeting with the CM yesterday - will have patient rep investigate further. Plan for SBFT tomorrow - assess gastric and SB motility - if normal small bowel function, will plan for permanent surgical J tube - would like to be able to provide consistent nutritional support prior if bandaid solution holds - else to be done on this admission. Requested for family to provide prior care providers info in [facility] to discuss as well. >90 minutes spent with patient and family throughout day as well as care team. Extensive questions entertained. no complaints. tube repositioned in fluoro yesterday again. tube feeding tolerated yesterday at 20cc. she stopped it for a few hours overnight. PEJ site pain slightly better. able to cannulate stoma again. KUB with tube retraction again toward pylorus this am. will review with GI options of clipping catheter. if all else fails, may need to consider a surgical j-tube option. will continue to work with insurance on feeding approval. jtube clogged last mike - unable to be flushed by staff. pain slightly better at PEJ insertion site. avss. comfortable. abd soft, tender tube site. no erythema. difficulty flushing tube with water/soda... gtube disconnected. ileostomy cath removed - difficulty placing stiffer catheter. will check kub. tube feeding snafu noted - will continue to work with clinical social work therapist. additional CM issues noted as well. diet when able. cont reglan for now. pt seen early today in rads (J tube retracted into stomach last mike). c/o pain from PEJ placement. No stoma issues with catheter in place. avss. comfortable , appears depressed. abd dist, soft, tube secure. PEG bag with gastric content. ileostomy with normal succus. Tube able to be manipulated back into small bowel by rads successfully. Will plan to start j tube feeds today. continue gastric decompression. will add reglan scheduled. care plan discussed with pt and nursing staff. continued gastric decompression with plans to assess gastric motility at later time. will reattempt to cannulate ileostomy prior to discharge in the next couple of days. will leave to gravity drainage until then. Plan: 12/26/16 18:59 12/27/16 14:15 12/28/16 09:29 12/29/16 08:20 12/30/16 19:48 12/31/16 20:56 01/02/17 19:06 01/03/17 16:58 01/04/17 10:14 01/05/17 11:23 Objective: Vital Signs Temp Pulse Resp BP Pulse Ox 36.9 C 75 16 110/72 97 01/05/17 08:00 01/05/17 08:00 01/05/17 08:00 01/05/17 08:00 01/05/17 08:00 Laboratory Results 01/02/17 04:33 01/02/17 04:33 01/04/17 01/05/17 01/06/17 05:59 05:59 05:59 Intake Total 3220 1289 Output Total 350 2100 Balance 2877 -811 ICD10 Worksheet Patient Problems: Problems Problem Status Onset Abdominal abscess Acute
[2017-01-05] MEDS: METOCLOPRAMIDE 10 MG/10 ML UDL TUBE SCH ×2 (15:24→21:58)
[2017-01-06] MEDS: HYDROCOD/APAP 7.5/325 IN 15ML UDCUP TUBE SCH ×2 (04:03→10:14)
[2017-01-06 07:49] VITALS: RESP 16
[2017-01-06] MEDS: FAMOTIDINE 20 MG TAB PO SCH (08:36)
[2017-01-06] MEDS: METOCLOPRAMIDE 10 MG/10 ML UDL TUBE SCH (08:36)
[2017-01-06 11:43] VITALS: BP 99/86; PULSE 120; TEMP 98.6; O2SAT 92
--- NOTE | 2017-01-06 13:29 | PDIAF ---
- Diagnosis Code Status: Full Code - Medication Management Discharge Medications: Medications to Continue on Transfer Ascorbic Acid [Vitamin C 500 mg (*)] 500 mg PO DAILY 12/03/16 [Last Taken ] Citalopram [CeleXA 20 MG] 20 mg PO HS 12/03/16 [Last Taken 12/24/16] Ondansetron Odt [Zofran Odt 4 mg (*)] 4 mg PO DAILY PRN 12/03/16 [Last Taken 05/10] lamoTRIgine [LamICTAL 100 MG (*)] 100 mg PO HS 12/03/16 [Last Taken 12/24/16] Hydrocod/APAP 7.5/325 in 15Ml [Hycet Oral Liquid (*) 7.5MG-325MG/15ML] 10 - 20 ml TUBE Q6H #30 udcup 01/06/17 [Last Taken Unknown] Metoclopramide [Reglan] 10 mg TUBE TID #1 ml 01/06/17 [Last Taken Unknown] Discharge Medications: Refer to the Discharge Home Medication list for PRN reason. - Orders Services needed: Home Half-Way Care Face to Face: I certify that this patient was under my care and that I had the required [id number] encounter meeting the encounter requirements on the discharge day. My findings support the fact that the patient is homebound as defined in Home Care Face to Face Continued: CMS Chapter 7 Medicare Benefits Manual 30.1.1 , The condition of the patient is such that there exists a normal inability to leave home and consequently, leaving home would require a considerable and taxing effort. Tube feeding: vivonex at 50cc/hr Wound Care Instructions: gastrostomy tube to drainage bag prn. catheterize ileostomy tid/prn with coudet catheter - irrigate with 60cc tap water and aspirate until empty. Activity/Weight Bearing Restrictions: no lifting > 50 pounds x 1month - Follow Up Care Current Providers and Referrals: NONE *PRIMARY CARE P,. [Primary Care Provider] -
--- NOTE | 2017-01-06 13:33 | SOAPPROG ---
SOAP Progress Note Assessment/Plan: Assessment: pod#5 s/p s/p GJ and J tube. tolerating J tube feeds at goal without cramps. still with difficulty with spont ileostomy drainage - irrigated at bedside without difficulty. needing to burp G tube regularly. pain controlled with oxycodone. avss. comfortable. abd soft. sites all clean. ostomy thin succus. doing very well overall. still unclear if gastoparesis with SMA syndrome or both. will provide gravity bag for gastrostomy tube prn. continue reglan. home today with vivonex - dietary helping with additional additives. Still hopeful that if SMA syndrome, may improve over the next few weeks, if dysmotility secondary to chronic subclinical obstruction, may improve as well - if gastroparesis, outlook not as good. ileostomy catheter provided and performed. discussed goals for intermittent cannulation and ongoing irrigation as needed. dc today. reviewed with patient, fiance and nursing staff. pod#4 s/p GJ and J tube. tolerating J tube feeds at goal without cramps. needing to burp G tube regularly. UGI with good sb transit, large stomach persists, difficult to assess gj anast, still preferential duod emptying. pain controlled with oxycodone. received mcaid number-will be able to coordinate home tube feeds for friday. avss. comfortable. abd soft. sites all clean. ostomy thin succus. doing very well overall. still unclear if gastoparesis with SMA syndrome or both. will leave G tube clamped and restart reglan - has approp nutritional support - if SMA syndrome, may improve over the next few weeks, if dysmotility secondary to chronic subclinical obstruction, may improve as well - if gastroparesis, outlook not as good. ileostomy catheter removed - discussed goals for intermittent cannulation and ongoing irrigation as needed. goal for dc to home tomorrow. discussed role for outpatient psych/nutr counseling -while longstanding functional component to eating, this also appears to be somewhat multifactorial as well given the chronicity of her medical issues. reviewed with patient, fiance and nursing staff. pod#3 s/p GJ and J tube. tolerating J tube feeds at goal. burped G tube last mike with relief of discomfort. pain better with oxycodone. received mcaid number. avss. comfortable. abd soft. sites all clean. ostomy thin succus. doing very well. will obtain gastrograffin study of gastric function today. goal for dc to home tomorrow. will try to remove ileostomy catheter tomorrow. better spirits. excellent progress. reviewed with patient, fiance and nursing staff. pod#2 s/p GJ and J tube. teary eyed today. pain fair control still. no nausea. ambulating. working on TF solutions with mcaid. kulwinder food at 20cc/hr. avss. abd soft, min dist. incis clean. tubes all secure - g tube gastrobilious. ileostomy - old barium in tube, thick succus. slow progress. gtube clamp today with po oxycodone for pain. clears or fulls. knows to burp gtube if distended or uncomfortable. if tolerates, can consider switching to gtube feeds or all po intake at some point. will leave ileostomy cath in place until above tolerated. reviewed with patient, fiance and nursing staff. pod#1 decent night s/p G-J and j tube. pain fair control. no nausea. voided and ambulated. afebrile. abd soft, flat, approp incis tenderness. gtube - gastric. ileostomy - old barium. j tube secure. doing well overall. start jtube feeds with intent to advance toward goal as able. elixir lortab. will leave ileostomy cannulated until feeling better. will clamp gtube in the next couple of days. discussed in detail with patient, fiance and nursing staff. decreased stoma output throughout day. SBFT in process. normal esophagus. Pain on initial gastric filling with small contrast into a markedly dilated duodenum toward midportion. eventual passage to jejunum with hang up proximal jejunum initially. patient seen in room after above in process. current initial images all reviewed with rads. there is also note retained succus in pouch noted. this was subsequently irrigated for appx 500-600cc output with relief of crampy symptoms - gastrograffin place at this time for possible diagnostic and therapeutic benefit. physical exam otherwise unchanged. 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 This along with her initial SBFT images may better explain her impaired stomach emptying concerns (duodenal obstruction with GOO rather than gastroparesis) with J tube retraction. This would also be consistent with her ongoing pain with feeding in the proximal duodenum as opposed to her short term relief with distal duodenal feeds. her slow jejunal emptying as seen on her present images is likely best explained by her poor functioning ileal conduit which I suspect will be improved on her next image. Pending review of her final images tomorrow, I am leaning toward proceeding with a necessary surgical j-tube along with surgical gastrojejunostomy. This may help provide relief of any permutation of concerns she may currently have ( SMA syndrome, concerns for gastroparesis, gastric venting and permanent jejunal feeding). If simply SMA syndrome, all tubes can be removed once weight gained. If gastroparesis, she is vented and nourished. She will still need future addressing of her mechanical ileal conduit concerns - this will require specialist eval by her initial colorectal surgeon. I reviewed these findings with patient and mom and later with Dr. Leonard. Final reccs to follow tomorrow. Jtube replaced into duodenum and clipped by Dr. Leonard. Patient seen in PACU - unable to cannulate stoma again. Recannulated with a 20fr Coudet and irrigated of large mucus/succus with immediate relief. GI findings discussed with Dr. Leonard as well - understood that this is at best a temporary bandaid. Patient seen later this evening as well. She was unable to cannulate her ostomy again - a Coudet was able to be easily replaced and irrigated again and left to drainage bag this time. We extensively discussed her current issues ( malnutrition, gastroparesis, cont ileostomy dysfunction, [place] [facility] solution which will likely include a surgical j-tube assuming small bowel function normal - to that end, will pursue SBFT tomorrow, insurance constraints, depression, [place] [facility] goals and concerns regarding her next med-surg road blocks ). They also discussed concerns about their meeting with the CM yesterday - will have patient rep investigate further. Plan for SBFT tomorrow - assess gastric and SB motility - if normal small bowel function, will plan for permanent surgical J tube - would like to be able to provide consistent nutritional support prior if bandaid solution holds - else to be done on this admission. Requested for family to provide prior care providers info in [facility] to discuss as well. >90 minutes spent with patient and family throughout day as well as care team. Extensive questions entertained. no complaints. tube repositioned in fluoro yesterday again. tube feeding tolerated yesterday at 20cc. she stopped it for a few hours overnight. PEJ site pain slightly better. able to cannulate stoma again. KUB with tube retraction again toward pylorus this am. will review with GI options of clipping catheter. if all else fails, may need to consider a surgical j-tube option. will continue to work with insurance on feeding approval. jtube clogged last mike - unable to be flushed by staff. pain slightly better at PEJ insertion site. avss. comfortable. abd soft, tender tube site. no erythema. difficulty flushing tube with water/soda... gtube disconnected. ileostomy cath removed - difficulty placing stiffer catheter. will check kub. tube feeding snafu noted - will continue to work with social scientist. additional CM issues noted as well. diet when able. cont reglan for now. pt seen early today in rads (J tube retracted into stomach last mike). c/o pain from PEJ placement. No stoma issues with catheter in place. avss. comfortable , appears depressed. abd dist, soft, tube secure. PEG bag with gastric content. ileostomy with normal succus. Tube able to be manipulated back into small bowel by rads successfully. Will plan to start j tube feeds today. continue gastric decompression. will add reglan scheduled. care plan discussed with pt and nursing staff. continued gastric decompression with plans to assess gastric motility at later time. will reattempt to cannulate ileostomy prior to discharge in the next couple of days. will leave to gravity drainage until then. Plan: 12/26/16 18:59 12/27/16 14:15 12/28/16 09:29 12/29/16 08:20 12/30/16 19:48 12/31/16 20:56 01/02/17 19:06 01/03/17 16:58 01/04/17 10:14 01/05/17 11:23 01/06/17 13:31 Objective: Vital Signs Temp Pulse Resp BP Pulse Ox 37.0 C 120 H 16 99/86 H 92 01/06/17 11:32 01/06/17 11:32 01/06/17 11:32 01/06/17 11:32 01/06/17 11:32 Laboratory Results 01/02/17 04:33 01/02/17 04:33 01/05/17 01/06/17 01/07/17 05:59 05:59 05:59 Intake Total 1289 700 Output Total 2100 591 Balance -811 109 ICD10 Worksheet Patient Problems: Problems Problem Status Onset Abdominal abscess Acute
--- NOTE | 2017-01-06 14:25 | ASMTCMCOM ---
CM Note CM Note Notes: CM spoke w/ DONNIE Randhawa. CM met w/ pt for dispo planning. Pt reports that she is experiencing some cramps. Nancy from [facility] here today and met w/ pt to discuss services that they will be providing. Pt is being discharged today. CM sent orders over to [facility]. CM available for changes. Date Signed: 01/06/2017 02:24 PM Electronically Signed By:BRENDA Farah
--- NOTE | 2017-01-06 16:09 | ASMTCMCOM ---
CM Note CM Note Notes: [facility] is unable to take pt because of a formulary that pt is on. [facility] will make a referral to [facility] and they are willing to take pt. [facility] will be calling pt to communicate change of agency for home infusion. CM available for changes. Date Signed: 01/06/2017 04:12 PM Electronically Signed By:BRENDA Farah
--- NOTE | 2017-01-06 16:36 | ASDISCHSUM ---
Discharge Information Plan Status:IV ABX/Infusion Medically Cleared to Leave:01/06/2017 Discharge Date:01/06/2017 02:31 PM CM D/C Disposition: ADT D/C Disposition:Home, Routine, Self-Care Projected Discharge Date:01/06/2017 11:00 AM Transportation at D/C: Discharge Delay Reason: Follow-Up Date:01/06/2017 11:00 AM Discharge Slot: Final Diagnosis: Placement Information Referral Type:Home Infusion Referral ID:[id number] Provider Name:[facility]) Address 1:[address] Phone Number: Address 2: Fax Number: City:[place] Selection Factors: State:[place] Patient Contact Information Contact Name:AGUILAR Relationship:Other Address: Work Phone: City: [facility] Phone: [facility] Code: Email: Financial Information Financial Class:HMO and PPO Plans Primary Plan Desc: OUT OF STATE PPO Primary Plan Number:[id number] Secondary Plan Desc:[place] Secondary Plan Number:[id number] Assessment Information [facility] CM Progress Note CM Note CM Note Notes: Spoke w/RN, pt has a complex medical hx but is independent. 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 CM available for any changes. Date Signed: 12/26/2016 12:18 PM Electronically Signed By:Claudia Mccurdy RN [facility] CM Progress Note CM Note CM Note Notes: Spoke w/DONNIE, pt will need tube feeds at home, [facility]; possible eating disorder, CM w/f. Date Signed: 12/27/2016 01:00 PM Electronically Signed By:Claudia Mccurdy RN [facility] CM Progress Note CM Note CM Note Notes: Met with pt at request of NIKKY and RN as she is struggling emotionally with her new feeding tube and inability to eat solid foods anymore. Pt was lying in bed with her el [employer] and was very tearful. Andree currently weighs less than 100 lbs with a BMI of 15. She has a complicated medical and surgical hx from a congenital intestinal pseudo-obstruction. She has had multiple surgeries and recently had a J-tube placed for future tube feedlings. She said since she can't eat solids anymore she doesn't know how she will handle social situations. We discussed this and since she can drink liquids and some smoothies thought this might be a good solution for her. We also discussed her emotional needs - she doesn't have many friends and lives with her el in a dorm. Andree agreed she will need to tell people what she needs and Will at that point said she isn't very good at sharing what's going on with her. Andree said she didn't want to be a burden to him. That generated discussion of her "new" reality and the fact that she will have specific needs to be met. Will said he is more than willing to help support her in any way he can. She will also try to surround herself with people who will have a positive influence on her. Andree then said she thought she might d/c Friday and return to school Friday. We then discussed whether she will be safe to walk the 1/2 mile or so to her classes from the dorm given she has been in the hospital and on various sedating meds. She acknowledged it might be a good idea to "attend" her classes through Skype which she has done in the past. She is impatient with her mother who she feels is over protective and a "pain in the ass". We talked about ways she can respond to her mother to maintain a civil relationship and reduce her negative feelings toward her. She is also anxious to start regaining her physical fitness. NIKKY encouraged her to discuss with her MD how to proceed with a fitness program. Andree is struggling with her self-image and as any 21 yo, wants to fit in. This CM is working Friday and asked if she would like another visit. She said she would. CM to follow up with her Friday. The d/c plan is still for pt to d/c with Edward. Andree has had counseling in the past and was encouraged to restart this if she felt it was a benefit to her. Date Signed: 12/27/2016 05:02 PM Electronically Signed By:LELE Oconnell [facility] NIKKY Progress Note CM Note CM Note Notes: Met with pt again today. Her fiance and a friend were present as well. Andree continues to be concerned about how her tube feedings will be paid for. Re payment options: NIKKY encouraged Andree to ask her father to ask [employer] if they have a rider for nutritional support (ie tube feedings) he could take out or if there are scholarships or otehr financial assistance available. In an effort to include her mother NIKKY also suggested Andree ask her mother to contact the company that makes [employer] to see if they have a scholarship to assist with payment or whether they can donate the food to her for a while. Andree will take a picture of the bag with the contact information and send it to her mother. She asked if there were any other options if the J-tube doesn't work out - NIKKY encouraged her to discuss with the MDs involved in her care. She is going to surgery tomorrow. Nancy from [facility] is supposed to contact [employer] tomorrow so hopefully she will have input as well. Andree appeared to have more color in her face today and was not tearful. We agreed that this journey is like "a climb up [place]" and seems never ending but hopefully GI will resolve the tube issue and she will tolerate the current tube feeding regimen. Date Signed: 12/29/2016 04:20 PM Electronically Signed By:LELE Oconnell [facility] CM Progress Note CM Note CM Note Notes: CM spoke w/ Nancy from [facility] regarding d/c POC. Nancy was unable to make contact w/ RONAK because office was closed for . CM to follow. Date Signed: 12/30/2016 05:00 PM Electronically Signed By:BRENDA Farah [facility] CM Progress Note CM Note CM Note Notes: Spoke with Nancy at [facility]. Edward spoke to patient's BCBS, patient has no benefit for tube feeds. Edward spoke with patient's mother today re: above. Patient's father is primary on insurance plan. Edward not comfortable speaking with father without patient's permission. Edward will be on site on to work with Case Management, patient and family on possible solutions. Father may need to contact his insurance to see if there are any options for coverage, possible prior auth required? Edward also made this House Worker aware of a company called [employer] that will donate tube feeding pumps and supplies for free. More to be determined on when patient available. Case Mangement will continue to follow. Date Signed: 01/01/2017 04:07 PM Electronically Signed By:Jyothi Mckeon RN [facility] CM Progress Note CM Note CM Note Notes: SWer attended complex care team meeting today. Discussed Pt's case. Currently it seems Pt's insurance (through her father's plan) will not cover nutrition needs. Decided that [facility] and [employer] would assist Pt. in applying for Medicaid. Medicaid would likely cover nutrition/supplies that Pt. needs. Pt. gave SWer explicit verbal consent to SWer today to have Medicaid reps come and speak with her about application. Eyad let Edward know about plan. Gloriar to follow case tomorrow. Date Signed: 01/02/2017 03:30 PM Electronically Signed By:Melyssa Silva LCSW [facility] CM Progress Note CM Note CM Note Notes: Today SWer learned more from the team about Pt's benefits for tube feeds and nutrition. Nancy at [facility] provided extensive research and coordination. This is what we currently know: 1) Pt. indeed must be on Vivonex 10 nutrition feeds per regina Terrazas [phone] 2) Team is working to increase Pt's feeds to goal-level. 3) [facility] does have benefits for Vivonex 10 nutrition. Nurse shelter case manager at [facility] is Archana Denney [phone]. Archana will be confirming that there are benefits with her supervisor cooler service at [facility]. 4) [facility] to provide nutrition supplies and Vivonex 10. Will also provide home health RN and milker machine. 5) SWer helped to coordinate Medicaid application as secondary insurance for Pt. [employer] did meet w/ Pt today. Pt. may have eating disorder. Bedside RNs have noticed Pt. 'clamping off' her feeds. SWer tried to consult Claudia Milner, behavioral health nurse today, but Claudia not available. SWer not available to spend time on psychosocial eval today. If staff available, Pt. may benefit from psychosocial eval and intervention w/ Pt. Will Rinaldi in the room today w/ Pt. CM to follow for d/c w/ home health RN and infusion services through [facility]. Date Signed: 01/03/2017 04:15 PM Electronically Signed By:Melyssa Silva LCSW [facility] CM Progress Note CM Note CM Note Notes: CM contacted [facility], they have nutrition, supplies and nursing ready for pt if she discharges on Friday. They have pt's Medicaid # ([id number]) that will picking machine operator the remainder of the balance not covered by [facility] ins. She should not have any copay, but if she does is typically $1-$3. Notified pt of this and she is ok with plan. Pt staying in dorm: [facility] Date Signed: 01/04/2017 03:59 PM Electronically Signed By:Claudia Mccurdy RN [facility] CM Progress Note CM Note CM Note Notes: CM spoke w/ DONNIE Randhawa. CM met w/ pt for dispo planning. Pt reports that she is experiencing some cramps. Nancy from [facility] here today and met w/ pt to discuss services that they will be providing. Pt is being discharged today. CM sent orders over to [facility]. NIKKY available for changes. Date Signed: 01/06/2017 02:24 PM Electronically Signed By:BRENDA Farah [facility] Progress Note CM Note CM Note Notes: [facility] is unable to take pt because of a formulary that pt is on. [facility] will make a referral to [facility] and they are willing to take pt. [facility] will be calling pt to communicate change of agency for home infusion. NIKKY available for changes. Date Signed: 01/06/2017 04:12 PM Electronically Signed By:BRENDA Farah Intervention Information
--- NOTE | 2017-01-07 16:51 | GDS ---
[f rep st] DISCHARGE SUMMARY REASON FOR ADMISSION: Intestinal pseudo-obstruction. HOSPITAL COURSE: 21-year-old female with an extremely complex past medical and surgical history related to intestinal pseudo-obstruction. Her underlying disease process is thought secondary to a deficiency of her interstitial cell of Cajal. She has undergone extensive abdominal surgeries throughout her lifetime, with her most recent current anatomy consisting of a total abdominal colectomy with continent ileostomy on this admission. She had been admitted a month and a half prior with peritonitis secondary to a secondarily infected hematoma from her continent ileostomy reconstruction in [place] over the summer. This procedure went uneventfully. Since that time, the patient has been unable to tolerate oral intake and was admitted on this admission with progressive weight loss, failure to thrive, worsening abdominal pain, nausea, vomiting, and inability to tolerate oral intake. She had been previously worked up for gastroparesis, which was initially thought to be her presumptive diagnosis. On this admission, she underwent an attempted PEJ placement. While the gastrostomy portion was successfully placed, the jejunal feeding tube was unable to be maintained in her downstream duodenum secondary to her distorted gastric anatomy. Multiple fluoroscopic as well as endoscopic attempts were entertained to no avail. Further diagnostic testing at that time was felt also to be possibly suggestive of an underlying SMA syndrome given the patient's recent 10 to 50 pounds weight loss and markedly dilated proximal duodenum. She was returned to the operating room for a decompressive gastrojejunostomy as well as permanent jejunostomy tube placement for ongoing enteral feeds. Throughout all of this, her continent ileostomy had been unable to be cannulated since the day of her admission as well. Her hospital course was handled with ongoing intermittent catheterizations of her ileostomy with the use of a Donaldson catheter without difficulty with associated irrigations. Her stomach dilation was being managed with intermittent gastric drainages as needed. She was ultimately able to be started on Vivonex at 50 mL an hour with additional fat supplementation as her main dietary source, which she was tolerating well. She was discharged to home on the in fair condition, tolerating her tube feeds at goal rate with adequate stoma output. She was to resume all prehospital medications, including Celexa and lamotrigine. She was given prescriptions for Reglan and for hydrocodone as needed for discomfort via her J-tube. She will plan to follow up with Dr. Yao in the next 1 week. She and her fiance were comfortable with their care plan. All questions were entertained prior to leaving. Copy requested to: Dr. Martinez /[id number]/MODL MTDD
== END 2017-01-06 14:31 | disposition home or self-care (01) | DRG 392 ==
LOC: F3E 10:23
PROVIDERS: ADMIT Surgery; ATTEND Surgery
PROC: 0DHA4UZ Insertion of Feeding Device into Jejunum, Percutaneous Endoscopic Approach (ICD-10-PCS; 2016-12-26)
PROC: BD13YZZ Fluoroscopy of Small Bowel using Other Contrast (ICD-10-PCS; 2016-12-27)
PROC: 0DWDXUZ Revision of Feeding Device in Lower Intestinal Tract, External Approach (ICD-10-PCS; 2016-12-28)
PROC: BD13YZZ Fluoroscopy of Small Bowel using Other Contrast (ICD-10-PCS; 2016-12-28)
PROC: 0DWDXUZ Revision of Feeding Device in Lower Intestinal Tract, External Approach (ICD-10-PCS; 2016-12-30)
PROC: 0DHA0UZ Insertion of Feeding Device into Jejunum, Open Approach (ICD-10-PCS; principal; 2017-01-01 14:45)
DX: K59.8 Other specified functional intestinal disorders (principal); K31.84 Gastroparesis; T85.528A Displacement of other gastrointestinal prosthetic devices, implants and grafts, initial encounter; E46 Unspecified protein-calorie malnutrition; Z93.2 Ileostomy status; Z90.49 Acquired absence of other specified parts of digestive tract; D82.8 Immunodeficiency associated with other specified major defects
CPT/HCPCS: J0171; J0690; J1100; J1170; J1885; J2060; J2250; J2405; J2704; J2765; J3010; Q9967

== ENCOUNTER 2017-01-07 12:36 | Inpatient (IN) | payer BC, MEDICAID ==
[2017-01-07] MEDS ORDERED: NS 2,000 ML IV ONE (13:43)
--- NOTE | 2017-01-07 16:05 | ASMTCMCOM ---
CM Note CM Note Notes: Pt readmitted after one day, spoke w/, states pt understands cannot stop feedings and needs to take a break from school to focus on health, will involve Claudia Paula for consult, would benefit from pso social assistance here and as outpt. states pt willing to put in the effort. CM left message for Claudia Paula. Date Signed: 01/07/2017 04:04 PM Electronically Signed By:Claudia Mccurdy RN
--- NOTE | 2017-01-07 16:15 | CPEKG ---
Heart Rate: 112 RR Interval: 536 P-R Interval: 152 QRSD Interval: 68 QT Interval: 340 QTC Interval: 464 P Chatfield: 74 QRS Chatfield: 255 T Wave Chatfield: 66 EKG Severity - ABNORMAL ECG - EKG Impression: SINUS TACHYCARDIA EKG Impression: RIGHT ATRIAL ABNORMALITY EKG Impression: LAD, CONSIDER LEFT ANTERIOR FASCICULAR BLOCK Electronically Signed By: Clement Coon 09-Jan-2017 13:48:49
--- NOTE | 2017-01-07 16:45 | GHP ---
[f rep st] HISTORY AND PHYSICAL DATE OF ADMISSION: 01/07/2017 REASON FOR ADMISSION: Malnutrition, syncope, dehydration. 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 She has undergone multiple prior abdominal surgeries over the past 20 years. She was discharged yesterday after a prolonged hospitalization for malnutrition and inability to tolerate oral intake. 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 She underwent a gastrojejunostomy with PEG tube and permanent J- tube placement during that admission. She was ultimately discharged with continuous tube feeds at 50 cc an hour. Her hospitalization was notable for difficulty maintaining continuous feeds either because of the patient's desire to have her tube feeds turned off or other and challenges. She was discharged home yesterday to start Vivonex last evening at 50 cc an hour. She states that the food was delivered late, and she did not start her feeds. She presented to the office today in followup with inability to recannulate her continent ileostomy as well as passing out at home and with worsening pain and general failure to thrive. She is being readmitted at this time for fluid rehydration and re-initiation of supervised tube feeds. Please refer to her prior history and physical as well as discharge summary for additional historical details. PAST MEDICAL HISTORY: Intestinal pseudo-obstruction, interstitial cells of Cajal deficiency, eating disorder. PAST SURGICAL HISTORY: 1. Multiple prior exploratory laparotomies with colonic resections, anastomoses , ultimately with a total abdominal colectomy with continent ileostomy. 2. Gastrojejunostomy. 3. PEG tube placement. 4. Feeding J-tube placement. MEDICATIONS: Celexa, lamotrigine, hydrocodone p.r.n., Reglan, Vivonex. ALLERGIES: Mustard. SOCIAL: No alcohol. No tobacco. 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 She is engaged to [employer]. FAMILY HISTORY: Noncontributory. REVIEW OF SYSTEMS: Notable for significant GI complaints, history of eating disorder, malnutrition, anorexia. PHYSICAL EXAM: VITAL SIGNS: Temperature 37, blood pressure 100/70, pulse 120s , respirations 16. GENERAL: The patient is alert, appropriate, emaciated in appearance, pale. HEENT: Anicteric, sunken pupils. Dry oral mucosa. HEART: Regular, tachycardic. LUNGS: Clear. ABDOMEN: Soft, nicely healing upper midline laparotomy with a nicely positioned PEG tube. J-tube secure. Continent ileostomy was recannulated at the bedside and irrigated with return of thick succus effluent. EXTREMITIES: Without edema. SKIN: Scaly in appearance. NEUROLOGIC: Alert and appropriate x3. IMPRESSION: 1. 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 2. Severe malnutrition. 3. Depression. 4. Failure to thrive. PLAN: Patient is being readmitted for fluid resuscitation and re-initiation of her supervised tube feeds. Care plan was discussed extensively with the patient 's fiancee as well as Mom in office prior to admission. We discussed the patient's needing to change her current lifestyle and consider withdrawal from this semester's care to allow for adequate treatment for the above situation. I discussed the case also with our [facility] casey saw operator and will request the Behavioral Health nurse consultation for further local resources. We also discussed her needs for ongoing multidisciplinary management outside the hospital, which will need to be determined prior to hospital discharge. Regarding her syncopal episodes, I suspect that this is likely secondary to dehydration. To that end, will obtain an EKG as well. I also discussed her care with her surgeon in [place] regarding her difficulties with managing her continent ileostomy. He is in agreement with maintaining an indwelling catheter until her nutritional status is optimized with further assessment to be obtained at a much later date and time. /[id number]/MODL MTDD
[2017-01-07] MEDS: HYDROCOD/APAP 7.5/325 IN 15ML UDCUP TUBE PRN (18:05)
[2017-01-07] MEDS: ONDANSETRON DISINTEGRATING 4 MG TAB PO PRN ×2 (18:06→22:13)
[2017-01-07] MEDS: D5W NS 1,000 ML IV SCH (20:40)
[2017-01-07] MEDS: CITALOPRAM 20 MG TAB PO SCH (21:57)
[2017-01-07] MEDS: lamoTRIgine 100 MG TAB PO SCH (21:57)
[2017-01-08 04:57] LABS: PLATELET COUNT 430 10^3/uL (150-400)
[2017-01-08] MEDS: ASCORBIC ACID 500 MG TAB PO SCH (09:55)
[2017-01-08] MEDS: D5W NS 1,000 ML IV SCH ×2 (12:43→20:24)
--- NOTE | 2017-01-08 15:39 | ASMTCMCOM ---
CM Note CM Note Notes: Pt. has J tube for her nutrition. Today SWer got in touch w/ nutrition home provider, [facility]. Liaison from [facility] is Leticia . [facility] to assume home care needs again at d/c. [facility] will provide nutrition and supplies and hospital product specialist. Homecare RN to be provided by [facility]. SWer checked in w/ Sue at [facility] who will follow for d/c RN. Claudia Milner RN, REFRIGERATION SYSTEMS INSTALLER (behavioral health) saw Pt. today. Will have her complete note in the medical chart soon. Please see her complete notes. SW to follow for d/c POC. Date Signed: 01/08/2017 03:39 PM Electronically Signed By:Melyssa Silva LCSW
--- NOTE | 2017-01-08 15:39 | ASMTCMCOM ---
CM Note CM Note Notes: Pt. has J tube for her nutrition. Today SWer got in touch w/ nutrition home provider, [facility]. Liaison from [facility] is Leticia . [facility] to assume home care needs again at d/c. [facility] will provide nutrition and supplies and acquisition advisor. Homecare RN to be provided by [facility]. SWer checked in w/ Sue at [facility] who will follow for d/c RN. Claudia Milner RN, MEETING PLANNER (behavioral health) saw Pt. today. Will have her complete note in the medical chart soon. Please see her complete notes. SW to follow for d/c POC. Date Signed: 01/08/2017 03:39 PM Electronically Signed By:Melyssa Silva LCSW
--- NOTE | 2017-01-08 15:39 | ASMTCMCOM ---
CM Note CM Note Notes: Pt. has J tube for her nutrition. Today SWer got in touch w/ nutrition home provider, [facility]. Liaison from [facility] is Leticia . [facility] to assume home care needs again at d/c. [facility] will provide nutrition and supplies and enrollment consultant. Homecare RN to be provided by [facility]. SWer checked in w/ Sue at [facility] who will follow for d/c RN. Claudia Milner RN, CREW CLERK (behavioral health) saw Pt. today. Will have her complete note in the medical chart soon. Please see her complete notes. SW to follow for d/c POC. Date Signed: 01/08/2017 03:39 PM Electronically Signed By:Melyssa Silva LCSW
--- NOTE | 2017-01-08 17:43 | SOAPPROG ---
SOAP Progress Note Assessment/Plan: Assessment:feeling much better today. no further syncopal episodes. pain better. still needing to vent gastrostomy frequently. better spirits today. seen at bedside with nurse earlier today. avss. comfortable. abd soft, less tender. tubes secure. lytes better (k 3.3, bun/cr normal). Syncope, hyponatremia, hyperkalemia, acute renal insufficiency, elevated LFT, hypercalcemia all improved with IVF resuscitation. Tolerating tube feeds well. Extensive discussion with patient and behavioral health nurse earlier today regarding short and termite renewal inspector goals. patient dropping out of school to focus on her health this semester. needs continuous caloric intake for ultimate gastric function assessment to be determined. patient motivated and committed to taking care of her needs. she is aware that this will take many weeks to months for her progress to be measured. will leave stoma cannulated for now. K + supplement. supportive care. apprec Nurse [place] assessment earlier today. trying to connect gtube with jtube if able with contin jtube feeds to help minimize ongoing fluid losses - hydration will be an issue with her goal tube feeds and free water calcs. Plan: 01/08/17 17:37 01/08/17 21:19 Objective: Vital Signs Temp Pulse Resp BP Pulse Ox 36.8 C 64 12 110/77 97 01/08/17 15:34 01/08/17 15:34 01/08/17 15:34 01/08/17 15:34 01/08/17 15:34 Laboratory Results 01/08/17 04:30 01/08/17 04:30 01/07/17 01/08/17 01/09/17 05:59 05:59 05:59 Intake Total 550 1495 Output Total 1160 Balance -610 1495 ICD10 Worksheet Patient Problems: Problems Problem Status Onset Abdominal abscess Acute
[2017-01-08] MEDS ORDERED: POTASSIUM CL 20 MEQ/15 ML UDCUP TUBE ONE (17:45)
[2017-01-08] MEDS: lamoTRIgine 100 MG TAB PO SCH (21:30)
[2017-01-08] MEDS: CITALOPRAM 20 MG TAB PO SCH (21:30)
--- NOTE | 2017-01-09 10:14 | SOAPPROG ---
SOAP Progress Note Assessment/Plan: Assessment/Plan: Dehydration, failure to thrive, ongoing GI losses through G-tube. Status post total colectomy with end continent ileostomy Recent gastrojejunostomy and J-tube placement Regular rate and rhythm Clear to auscultation Abdomen soft incisions clean dry and intact Extremities without edema Skin has normal turgor at this point Dehydration consider Reglan are other promotility agent to decompress stomach through gastrojejunostomy. Continue tube feeds as able. Consider "refeeding" gastric GI losses from G-tube into J tube to avoid dehydration. Also consider free water/electrolyte replacement through J-tube 01/09/17 10:11 Objective: Vital Signs Temp Pulse Resp BP Pulse Ox 36.9 C 66 12 94/56 L 98 01/09/17 08:00 01/09/17 08:00 01/09/17 08:00 01/09/17 08:00 01/09/17 08:00 Laboratory Results 01/08/17 04:30 01/09/17 04:58 01/08/17 01/09/17 01/10/17 05:59 05:59 05:59 Intake Total 550 5582 Output Total 1160 1350 Balance -610 4232 ICD10 Worksheet Patient Problems: Problems Problem Status Onset Abdominal abscess Acute
[2017-01-09] MEDS: ASCORBIC ACID 500 MG TAB PO SCH (10:24)
[2017-01-09] MEDS: HYDROCOD/APAP 7.5/325 IN 15ML UDCUP TUBE PRN ×3 (10:28→20:59)
[2017-01-09] MEDS: ONDANSETRON DISINTEGRATING 4 MG TAB PO PRN ×2 (10:28→16:49)
[2017-01-09] MEDS: D5W NS 1,000 ML IV SCH ×2 (13:15→20:11)
[2017-01-09] MEDS: lamoTRIgine 100 MG TAB PO SCH (21:00)
[2017-01-09] MEDS: CITALOPRAM 20 MG TAB PO SCH (21:00)
[2017-01-10] MEDS: HYDROCOD/APAP 7.5/325 IN 15ML UDCUP TUBE PRN ×5 (01:17→21:25)
[2017-01-10] MEDS: D5W NS 1,000 ML IV SCH ×2 (03:51→21:50)
[2017-01-10] MEDS: ASCORBIC ACID 500 MG TAB PO SCH (08:21)
--- NOTE | 2017-01-10 13:20 | ASMTCMCOM ---
CM Note CM Note Notes: Today SWer checked in w/ bedside RN about Pt's d/c plan. RN states Dr. Yao came to see Pt. in am and states that Pt. will d/c on Friday if all is stable. SWer checked-in w/ Leticia to confirm that all is ready at [facility] nutrition for Pt's case. Leticia plans to come to [facility] on Friday to help w/ teaching Pt. how to use nutrition pump. SWer let [facility] know about d/c plans. [facility] will provide RN at home. Will need to get address where Pt. is staying after d/c for [facility] and [facility]. CM to follow. Date Signed: 01/10/2017 01:19 PM Electronically Signed By:Melyssa Silva LCSW
--- NOTE | 2017-01-10 13:20 | ASMTCMCOM ---
CM Note CM Note Notes: Today SWer checked in w/ bedside RN about Pt's d/c plan. RN states Dr. Yao came to see Pt. in am and states that Pt. will d/c on Friday if all is stable. SWer checked-in w/ Leticia to confirm that all is ready at [facility] nutrition for Pt's case. Leticia plans to come to [facility] on Friday to help w/ teaching Pt. how to use nutrition pump. SWer let [facility] know about d/c plans. [facility] will provide RN at home. Will need to get address where Pt. is staying after d/c for [facility] and [facility]. CM to follow. Date Signed: 01/10/2017 01:19 PM Electronically Signed By:Melyssa Silva LCSW
--- NOTE | 2017-01-10 13:20 | ASMTCMCOM ---
CM Note CM Note Notes: Today SWer checked in w/ bedside RN about Pt's d/c plan. RN states Dr. Yao came to see Pt. in am and states that Pt. will d/c on Friday if all is stable. SWer checked-in w/ Leticia to confirm that all is ready at [facility] nutrition for Pt's case. Leticia plans to come to [facility] on Friday to help w/ teaching Pt. how to use nutrition pump. SWer let [facility] know about d/c plans. [facility] will provide RN at home. Will need to get address where Pt. is staying after d/c for [facility] and [facility]. CM to follow. Date Signed: 01/10/2017 01:19 PM Electronically Signed By:Melyssa Silva LCSW
--- NOTE | 2017-01-10 13:37 | SOAPPROG ---
SOAP Progress Note Assessment/Plan: Assessment:good night. better with IVF. drained less out of gtube today. ileostomy thinner. pain better. avss. appears much less dehydrated today. comfortable. avss. abd soft. jtube repositioned. gtube secure. she seems to be tolerating more of her gastric secretions than before. will plan to increase tube feeds (30-35cal/kg/day). will try to maximize free water via jtube. will try smaller po volumes as tolerated. will cap ileostomy tube and have patient flush. she will also aspirate her gtube and monitor the output for better gastroparesis assessment. she will replace her gtube aspirate via her jtube. will continue IVF today. nutritional plan reviewed with dietary. will also have patient bring her equipment from home so that we can help her troubleshoot the mechanics of a hopeful discharge on Friday. she is pleased and motivated with her progress. cautious optimism here. feeling much better today. no further syncopal episodes. pain better. still needing to vent gastrostomy frequently. better spirits today. seen at bedside with nurse earlier today. avss. comfortable. abd soft, less tender. tubes secure. lytes better (k 3.3, bun/cr normal). Syncope, hyponatremia, hyperkalemia, acute renal insufficiency, elevated LFT, hypercalcemia all improved with IVF resuscitation. Tolerating tube feeds well. Extensive discussion with patient and behavioral health nurse earlier today regarding short and jail goals. patient dropping out of school to focus on her health this semester. needs continuous caloric intake for ultimate gastric function assessment to be determined. patient motivated and committed to taking care of her needs. she is aware that this will take many weeks to months for her progress to be measured. will leave stoma cannulated for now. K + supplement. supportive care. apprec Nurse [place] assessment earlier today. trying to connect gtube with jtube if able with contin jtube feeds to help minimize ongoing fluid losses - hydration will be an issue with her goal tube feeds and free water calcs. Plan: 01/08/17 17:37 01/08/17 21:19 01/10/17 13:24 Objective: Vital Signs Temp Pulse Resp BP Pulse Ox 35.6 C L 70 16 104/61 96 01/10/17 07:37 01/10/17 07:37 01/10/17 07:37 01/10/17 07:37 01/10/17 07:37 Laboratory Results 01/08/17 04:30 01/09/17 04:58 01/09/17 01/10/17 01/11/17 05:59 05:59 05:59 Intake Total 7916 716 8477 Output Total 1350 1350 Balance 1430 -306 6683 ICD10 Worksheet Patient Problems: Problems Problem Status Onset Abdominal abscess Acute
--- NOTE | 2017-01-10 13:37 | SOAPPROG ---
SOAP Progress Note Assessment/Plan: Assessment:good night. better with IVF. drained less out of gtube today. ileostomy thinner. pain better. avss. appears much less dehydrated today. comfortable. avss. abd soft. jtube repositioned. gtube secure. she seems to be tolerating more of her gastric secretions than before. will plan to increase tube feeds (30-35cal/kg/day). will try to maximize free water via jtube. will try smaller po volumes as tolerated. will cap ileostomy tube and have patient flush. she will also aspirate her gtube and monitor the output for better gastroparesis assessment. she will replace her gtube aspirate via her jtube. will continue IVF today. nutritional plan reviewed with dietary. will also have patient bring her equipment from home so that we can help her troubleshoot the mechanics of a hopeful discharge on Friday. she is pleased and motivated with her progress. cautious optimism here. feeling much better today. no further syncopal episodes. pain better. still needing to vent gastrostomy frequently. better spirits today. seen at bedside with nurse earlier today. avss. comfortable. abd soft, less tender. tubes secure. lytes better (k 3.3, bun/cr normal). Syncope, hyponatremia, hyperkalemia, acute renal insufficiency, elevated LFT, hypercalcemia all improved with IVF resuscitation. Tolerating tube feeds well. Extensive discussion with patient and behavioral health nurse earlier today regarding short and long-term goals. patient dropping out of school to focus on her health this semester. needs continuous caloric intake for ultimate gastric function assessment to be determined. patient motivated and committed to taking care of her needs. she is aware that this will take many weeks to months for her progress to be measured. will leave stoma cannulated for now. K + supplement. supportive care. apprec Nurse K[place] assessment earlier today. trying to connect gtube with jtube if able with contin jtube feeds to help minimize ongoing fluid losses - hydration will be an issue with her goal tube feeds and free water calcs. Plan: 01/08/17 17:37 01/08/17 21:19 01/10/17 13:24 Objective: Vital Signs Temp Pulse Resp BP Pulse Ox 35.6 C L 70 16 104/61 96 01/10/17 07:37 01/10/17 07:37 01/10/17 07:37 01/10/17 07:37 01/10/17 07:37 Laboratory Results 01/08/17 04:30 01/09/17 04:58 01/09/17 01/10/17 01/11/17 05:59 05:59 05:59 Intake Total 1392 716 3488 Output Total 1350 1350 Balance 9326 -752 4349 ICD10 Worksheet Patient Problems: Problems Problem Status Onset Abdominal abscess Acute
--- NOTE | 2017-01-10 13:37 | SOAPPROG ---
SOAP Progress Note Assessment/Plan: Assessment:good night. better with IVF. drained less out of gtube today. ileostomy thinner. pain better. avss. appears much less dehydrated today. comfortable. avss. abd soft. jtube repositioned. gtube secure. she seems to be tolerating more of her gastric secretions than before. will plan to increase tube feeds (30-35cal/kg/day). will try to maximize free water via jtube. will try smaller po volumes as tolerated. will cap ileostomy tube and have patient flush. she will also aspirate her gtube and monitor the output for better gastroparesis assessment. she will replace her gtube aspirate via her jtube. will continue IVF today. nutritional plan reviewed with dietary. will also have patient bring her equipment from home so that we can help her troubleshoot the mechanics of a hopeful discharge on Friday. she is pleased and motivated with her progress. cautious optimism here. feeling much better today. no further syncopal episodes. pain better. still needing to vent gastrostomy frequently. better spirits today. seen at bedside with nurse earlier today. avss. comfortable. abd soft, less tender. tubes secure. lytes better (k 3.3, bun/cr normal). Syncope, hyponatremia, hyperkalemia, acute renal insufficiency, elevated LFT, hypercalcemia all improved with IVF resuscitation. Tolerating tube feeds well. Extensive discussion with patient and behavioral health nurse earlier today regarding short and [facility] goals. patient dropping out of school to focus on her health this semester. needs continuous caloric intake for ultimate gastric function assessment to be determined. patient motivated and committed to taking care of her needs. she is aware that this will take many weeks to months for her progress to be measured. will leave stoma cannulated for now. K + supplement. supportive care. apprec Nurse Dillon assessment earlier today. trying to connect gtube with jtube if able with contin jtube feeds to help minimize ongoing fluid losses - hydration will be an issue with her goal tube feeds and free water calcs. Plan: 01/08/17 17:37 01/08/17 21:19 01/10/17 13:24 Objective: Vital Signs Temp Pulse Resp BP Pulse Ox 35.6 C L 70 16 104/61 96 01/10/17 07:37 01/10/17 07:37 01/10/17 07:37 01/10/17 07:37 01/10/17 07:37 Laboratory Results 01/08/17 04:30 01/09/17 04:58 01/09/17 01/10/17 01/11/17 05:59 05:59 05:59 Intake Total 9316 716 8059 Output Total 1350 1350 Balance 2578 -789 1827 ICD10 Worksheet Patient Problems: Problems Problem Status Onset Abdominal abscess Acute
[2017-01-10] MEDS ORDERED: LORazepam 2 MG/ML INJ IVP ONE (17:51)
[2017-01-10] MEDS: HYDROmorphONE/DILAUDID 1 MG/ML INJ IVP SCH ×5 (18:04→23:59)
[2017-01-10] MEDS: lamoTRIgine 100 MG TAB PO SCH (21:25)
[2017-01-10] MEDS: CITALOPRAM 20 MG TAB PO SCH (21:25)
--- NOTE | 2017-01-10 22:38 | GOP ---
[f rep st] OPERATIVE REPORT DATE OF OPERATION: 01/10/2017 SURGEON: Richy Yao MD ANESTHESIA: Local with IV sedation PREOPERATIVE DIAGNOSIS: Dislodged jejunostomy tube. POSTOPERATIVE DIAGNOSIS: Dislodged jejunostomy tube. PROCEDURE PERFORMED: Jejunostomy tube replacement under fluoroscopic guidance. FINDINGS: Successful placement of 18-Burmese button-type jejunal catheter. No contrast extravasation into the intraabdominal cavity noted. No immediate complications occurred. Fluoroscopy was supervised by Dr. Arauz. INDICATIONS: 21-year-old female status post a recent surgically placed jejunostomy tube 1 week ago along with gastrojejunostomy. The patient has been tolerating her feeds well through her J-tube. Her tube has become dislodged and throughout the day. She is undergoing a tube replacement under fluoroscopy this evening. DESCRIPTION OF PROCEDURE: The jejunostomy site was infiltrated with 1% lidocaine and 0.5% Marcaine. A 4-Burmese sheath was tediously manipulated down through the subcutaneous tunnel toward the jejunum. Initial fluoroscopic injection showed contrast extravasation preferentially out through the skin tunnel. The soft sheath was able to be passed on through into the jejunum as confirmed secondarily with contrast injection. There was no evidence of extravasation into the abdominal cavity of note. An 0.035 Amplatz wire was passed down through the subsequent jejunal loops. A 24-Burmese multi-dilator with dilator/tear-away sheath was passed over the wire through the immature subcutaneous tunnel. This was partially dilated to approximately an 18-20 Burmese. The dilator was removed and the 20-Burmese jejunostomy tube was passed over the wire intraluminally. There was mild resistance noted at the jejunal entrance site. The tube was slid to its hub. This was a 2.5 cm length between the skin and the balloon. Initially, on inflating the balloon, there was some discomfort noted. Contrast was injected into the balloon itself showing no deformities suggests that it was sitting within the tunnel tract but rather within the jejunum itself. The contrast was removed and this was replaced with tap water instead. The patient tolerated the procedure well with discomfort with the final catheter passage only. /[id number]/MODL MTDD
--- NOTE | 2017-01-10 22:38 | GOP ---
[f rep st] OPERATIVE REPORT DATE OF OPERATION: 01/10/2017 SURGEON: Richy Yao MD ANESTHESIA: Local with IV sedation PREOPERATIVE DIAGNOSIS: Dislodged jejunostomy tube. POSTOPERATIVE DIAGNOSIS: Dislodged jejunostomy tube. PROCEDURE PERFORMED: Jejunostomy tube replacement under fluoroscopic guidance. FINDINGS: Successful placement of 18-Tajik button-type jejunal catheter. No contrast extravasation into the intraabdominal cavity noted. No immediate complications occurred. Fluoroscopy was supervised by Dr. Arauz. INDICATIONS: 21-year-old female status post a recent surgically placed jejunostomy tube 1 week ago along with gastrojejunostomy. The patient has been tolerating her feeds well through her J-tube. Her tube has become dislodged and throughout the day. She is undergoing a tube replacement under fluoroscopy this evening. DESCRIPTION OF PROCEDURE: The jejunostomy site was infiltrated with 1% lidocaine and 0.5% Marcaine. A 4-Tajik sheath was tediously manipulated down through the subcutaneous tunnel toward the jejunum. Initial fluoroscopic injection showed contrast extravasation preferentially out through the skin tunnel. The soft sheath was able to be passed on through into the jejunum as confirmed secondarily with contrast injection. There was no evidence of extravasation into the abdominal cavity of note. An 0.035 Amplatz wire was passed down through the subsequent jejunal loops. A 24-Tajik multi-dilator with dilator/tear-away sheath was passed over the wire through the immature subcutaneous tunnel. This was partially dilated to approximately an 18-20 Tajik. The dilator was removed and the 20-Tajik jejunostomy tube was passed over the wire intraluminally. There was mild resistance noted at the jejunal entrance site. The tube was slid to its hub. This was a 2.5 cm length between the skin and the balloon. Initially, on inflating the balloon, there was some discomfort noted. Contrast was injected into the balloon itself showing no deformities suggests that it was sitting within the tunnel tract but rather within the jejunum itself. The contrast was removed and this was replaced with tap water instead. The patient tolerated the procedure well with discomfort with the final catheter passage only. /[id number]/MODL MTDD
--- NOTE | 2017-01-10 22:38 | GOP ---
[f rep st] OPERATIVE REPORT DATE OF OPERATION: 01/10/2017 SURGEON: Richy Yao MD ANESTHESIA: Local with IV sedation PREOPERATIVE DIAGNOSIS: Dislodged jejunostomy tube. POSTOPERATIVE DIAGNOSIS: Dislodged jejunostomy tube. PROCEDURE PERFORMED: Jejunostomy tube replacement under fluoroscopic guidance. FINDINGS: Successful placement of 18-Kittitian button-type jejunal catheter. No contrast extravasation into the intraabdominal cavity noted. No immediate complications occurred. Fluoroscopy was supervised by Dr. Arauz. INDICATIONS: 21-year-old female status post a recent surgically placed jejunostomy tube 1 week ago along with gastrojejunostomy. The patient has been tolerating her feeds well through her J-tube. Her tube has become dislodged and throughout the day. She is undergoing a tube replacement under fluoroscopy this evening. DESCRIPTION OF PROCEDURE: The jejunostomy site was infiltrated with 1% lidocaine and 0.5% Marcaine. A 4-Kittitian sheath was tediously manipulated down through the subcutaneous tunnel toward the jejunum. Initial fluoroscopic injection showed contrast extravasation preferentially out through the skin tunnel. The soft sheath was able to be passed on through into the jejunum as confirmed secondarily with contrast injection. There was no evidence of extravasation into the abdominal cavity of note. An 0.035 Amplatz wire was passed down through the subsequent jejunal loops. A 24-Kittitian multi-dilator with dilator/tear-away sheath was passed over the wire through the immature subcutaneous tunnel. This was partially dilated to approximately an 18-20 Kittitian. The dilator was removed and the 20-Kittitian jejunostomy tube was passed over the wire intraluminally. There was mild resistance noted at the jejunal entrance site. The tube was slid to its hub. This was a 2.5 cm length between the skin and the balloon. Initially, on inflating the balloon, there was some discomfort noted. Contrast was injected into the balloon itself showing no deformities suggests that it was sitting within the tunnel tract but rather within the jejunum itself. The contrast was removed and this was replaced with tap water instead. The patient tolerated the procedure well with discomfort with the final catheter passage only. /[id number]/MODL MTDD
[2017-01-10] MEDS: LORazepam 2 MG/ML INJ IVP PRN (22:52)
[2017-01-11] MEDS: HYDROmorphONE/DILAUDID 1 MG/ML INJ IVP SCH ×5 (01:03→13:36)
[2017-01-11] MEDS: oxyCODONE IR 5 MG TAB PO PRN ×5 (01:03→21:18)
[2017-01-11] MEDS: HYDROmorphONE/DILAUDID 1 MG/ML INJ IVP PRN ×5 (02:58→21:41)
[2017-01-11] MEDS: D5W NS 1,000 ML IV SCH ×3 (05:40→23:13)
[2017-01-11] MEDS: ASCORBIC ACID 500 MG TAB PO SCH (07:30)
--- NOTE | 2017-01-11 10:44 | SOAPPROG ---
SOAP Progress Note Assessment/Plan: Assessment/Plan: Dehydration, failure to thrive, ongoing GI losses through G-tube. Minimal G-tube output Tolerating some clears Status post total colectomy with end continent ileostomy Recent gastrojejunostomy and J-tube placement J tube replacement last night Regular rate and rhythm Clear to auscultation Abdomen soft incisions clean dry and intact Extremities without edema Skin has normal turgor at this point Ostomy remains intubated to prevent obstruction from edema to nipple Protein calorie malnutrition up to 130cc/hr TF to meet goal VICENTE resolved turn IVF down to 75 ml/hr Hyponatremia resolved with NS rehydration J--tube replaced imaging reviewed Likely will need several more days to actively wean off IVF, drain/tube care teaching management and transition to PO 01/11/17 10:38 Objective: Vital Signs Temp Pulse Resp BP Pulse Ox 36.8 C 99 16 114/55 L 96 01/11/17 08:00 01/11/17 08:00 01/11/17 08:00 01/11/17 08:00 01/11/17 08:00 Laboratory Results 01/08/17 04:30 01/09/17 04:58 01/10/17 01/11/17 01/12/17 05:59 05:59 05:59 Intake Total 936 8219 Output Total 1350 Balance -634 8219 ICD10 Worksheet Patient Problems: Problems Problem Status Onset Abdominal abscess Acute
[2017-01-11] MEDS: ONDANSETRON DISINTEGRATING 4 MG TAB PO PRN (11:28)
[2017-01-11] MEDS: LORazepam 2 MG/ML INJ IVP PRN (14:43)
[2017-01-11] MEDS: lamoTRIgine 100 MG TAB PO SCH (20:36)
[2017-01-11] MEDS: CITALOPRAM 20 MG TAB PO SCH (20:36)
[2017-01-12] MEDS: HYDROmorphONE/DILAUDID 1 MG/ML INJ IVP PRN ×3 (00:31→11:38)
[2017-01-12] MEDS: D5W NS 1,000 ML IV SCH (06:12)
[2017-01-12] MEDS: oxyCODONE IR 5 MG TAB PO PRN ×4 (06:12→22:42)
[2017-01-12] MEDS: ASCORBIC ACID 500 MG TAB PO SCH (09:33)
--- NOTE | 2017-01-12 12:24 | SOAPPROG ---
SOAP Progress Note Assessment/Plan: Assessment/Plan: Dehydration, failure to thrive, ongoing GI losses through G-tube. Minimal G-tube output Tolerating some clears Status post total colectomy with end continent ileostomy Recent gastrojejunostomy and J-tube placement J tube replacement last night Regular rate and rhythm Clear to auscultation Abdomen soft incisions mid point erythematous Extremities without edema Skin has normal turgor at this point Ostomy remains intubated to prevent obstruction from edema to nipple Protein calorie malnutrition up to 130cc/hr TF to meet goal calorie counts, daily weights , MVI, goal of 100 lbs prior to d/c tf MVI VICENTE resolved turn IVF down to 75 ml/hr Hyponatremia resolved with NS rehydration J--tube replaced imaging reviewed Likely will need several more days to actively wean off IVF, drain/tube care teaching management and transition to PO Wound infection may need drainage reassess in AM 01/11/17 10:38 01/12/17 12:22 Objective: Vital Signs Temp Pulse Resp BP Pulse Ox 37.1 C 77 16 95/57 L 95 01/12/17 08:00 01/12/17 08:00 01/12/17 08:00 01/12/17 08:00 01/12/17 08:00 Laboratory Results 01/08/17 04:30 01/09/17 04:58 01/11/17 01/12/17 01/13/17 05:59 05:59 05:59 Intake Total 8219 5312 Output Total 475 125 Balance 8219 4837 -125 ICD10 Worksheet Patient Problems: Problems Problem Status Onset Abdominal abscess Acute
[2017-01-12] MEDS: MULTIVITAMINS 1 EACH TAB PO SCH (13:02)
[2017-01-12] MEDS: HYDROCOD/APAP 7.5/325 IN 15ML UDCUP TUBE PRN (13:28)
--- NOTE | 2017-01-12 17:14 | ASMTCMCOM ---
CM Note CM Note Notes: 01/12/2017 Case Management Note met w/pt and jesika Solis. Pt expressed frustration with care under RN yesterday. Agreed to have Case Management arrange for patient advocate to visit and agreed to case management sharing information with chargeback analyst. Encouraged pt to advocate for self in the moment rather than the next day. Pt in agreement to notify chargeback analyst if situation arises in future. Discussed how confidentiality works with charting. Pt agreeable to charting happening but upset by interpretation of some notes, specificallly Claudia Milner notes and those of case management by nursing staff. Case Management passed that concern along to the chargeback analyst who will pass along in report. Case Management arranged pt advocate visit. Per pt incision is infection and there are plans to have incision drained tomorrow. Case management to follow. Date Signed: 01/12/2017 05:14 PM Electronically Signed By:Mercedez Palacios RN
--- NOTE | 2017-01-12 17:14 | ASMTCMCOM ---
CM Note CM Note Notes: 01/12/2017 Case Management Note met w/pt and jesika Solis. Pt expressed frustration with care under RN yesterday. Agreed to have Case Management arrange for patient advocate to visit and agreed to case management sharing information with lost charge card clerk. Encouraged pt to advocate for self in the moment rather than the next day. Pt in agreement to notify lost charge card clerk if situation arises in future. Discussed how confidentiality works with charting. Pt agreeable to charting happening but upset by interpretation of some notes, specificallly Claudia Milner notes and those of case management by nursing staff. Case Management passed that concern along to the lost charge card clerk who will pass along in report. Case Management arranged pt advocate visit. Per pt incision is infection and there are plans to have incision drained tomorrow. Case management to follow. Date Signed: 01/12/2017 05:14 PM Electronically Signed By:Mercedez Palacios RN
--- NOTE | 2017-01-12 17:14 | ASMTCMCOM ---
CM Note CM Note Notes: 01/12/2017 Case Management Note met w/pt and jesika Solis. Pt expressed frustration with care under RN yesterday. Agreed to have Case Management arrange for patient advocate to visit and agreed to case management sharing information with supervisor propellant charge loading. Encouraged pt to advocate for self in the moment rather than the next day. Pt in agreement to notify supervisor propellant charge loading if situation arises in future. Discussed how confidentiality works with charting. Pt agreeable to charting happening but upset by interpretation of some notes, specificallly Claudia Milner notes and those of case management by nursing staff. Case Management passed that concern along to the supervisor propellant charge loading who will pass along in report. Case Management arranged pt advocate visit. Per pt incision is infection and there are plans to have incision drained tomorrow. Case management to follow. Date Signed: 01/12/2017 05:14 PM Electronically Signed By:Mercedez Palacios RN
[2017-01-12] MEDS: lamoTRIgine 100 MG TAB PO SCH (21:07)
[2017-01-12] MEDS: CITALOPRAM 20 MG TAB PO SCH (21:07)
[2017-01-12] MEDS: LORazepam 2 MG/ML INJ IVP PRN (23:02)
[2017-01-13] MEDS: oxyCODONE IR 5 MG TAB PO PRN ×6 (01:55→19:59)
[2017-01-13] MEDS: D5W NS 1,000 ML IV SCH (04:57)
[2017-01-13] MEDS: MULTIVITAMINS 1 EACH TAB PO SCH (08:36)
[2017-01-13] MEDS: ASCORBIC ACID 500 MG TAB PO SCH (08:36)
[2017-01-13] MEDS ORDERED: FLUCONAZOLE 150 MG TAB PO ONE (16:15)
--- NOTE | 2017-01-13 16:46 | SOAPPROG ---
SOAP Progress Note Assessment/Plan: Assessment/Plan: Dehydration, failure to thrive, ongoing GI losses through G-tube. Minimal G-tube output Tolerating some clears Status post total colectomy with end continent ileostomy Recent gastrojejunostomy and J-tube placement Regular rate and rhythm Clear to auscultation Abdomen soft incisions mid point erythematous- drained seropurulent material as expected Extremities without edema Skin has normal turgor at this point Ostomy remains intubated to prevent obstruction from edema to nipple Moderate to severe protein calorie malnutrition up to 65cc/hr TF to meet goal calorie counts, daily weights , MVI, goal of 100 lbs prior to d/c tf MVI VICENTE resolved turn IVF down to 75 ml/hr Hyponatremia resolved with NS rehydration J--tube replaced imaging reviewed Likely will need several more days to actively wean off IVF, drain/tube care teaching management and transition to PO Wound infection superficial local wound care integrative med f/u visit tomorrow anticipate d/c tomorrow on tube feeds 01/11/17 10:38 01/12/17 12:22 01/13/17 16:44 Objective: Vital Signs Temp Pulse Resp BP Pulse Ox 36.8 C 87 18 106/75 92 01/13/17 08:22 01/13/17 15:46 01/13/17 15:46 01/13/17 15:46 01/13/17 15:46 Laboratory Results 01/08/17 04:30 01/09/17 04:58 01/12/17 01/13/17 01/14/17 05:59 05:59 05:59 Intake Total 5342 3434 Output Total 882 916 Balance 9802 8226 ICD10 Worksheet Patient Problems: Problems Problem Status Onset Abdominal abscess Acute
--- NOTE | 2017-01-13 16:46 | SOAPPROG ---
SOAP Progress Note Assessment/Plan: Assessment/Plan: Dehydration, failure to thrive, ongoing GI losses through G-tube. Minimal G-tube output Tolerating some clears Status post total colectomy with end continent ileostomy Recent gastrojejunostomy and J-tube placement Regular rate and rhythm Clear to auscultation Abdomen soft incisions mid point erythematous- drained seropurulent material as expected Extremities without edema Skin has normal turgor at this point Ostomy remains intubated to prevent obstruction from edema to nipple Moderate to severe protein calorie malnutrition up to 65cc/hr TF to meet goal calorie counts, daily weights , MVI, goal of 100 lbs prior to d/c tf MVI VICENTE resolved turn IVF down to 75 ml/hr Hyponatremia resolved with NS rehydration J--tube replaced imaging reviewed Likely will need several more days to actively wean off IVF, drain/tube care teaching management and transition to PO Wound infection superficial local wound care integrative med f/u visit tomorrow anticipate d/c tomorrow on tube feeds 01/11/17 10:38 01/12/17 12:22 01/13/17 16:44 Objective: Vital Signs Temp Pulse Resp BP Pulse Ox 36.8 C 87 18 106/75 92 01/13/17 08:22 01/13/17 15:46 01/13/17 15:46 01/13/17 15:46 01/13/17 15:46 Laboratory Results 01/08/17 04:30 01/09/17 04:58 01/12/17 01/13/17 01/14/17 05:59 05:59 05:59 Intake Total 5379 3433 Output Total 250 284 Balance 5865 6724 ICD10 Worksheet Patient Problems: Problems Problem Status Onset Abdominal abscess Acute
--- NOTE | 2017-01-13 16:46 | SOAPPROG ---
SOAP Progress Note Assessment/Plan: Assessment/Plan: Dehydration, failure to thrive, ongoing GI losses through G-tube. Minimal G-tube output Tolerating some clears Status post total colectomy with end continent ileostomy Recent gastrojejunostomy and J-tube placement Regular rate and rhythm Clear to auscultation Abdomen soft incisions mid point erythematous- drained seropurulent material as expected Extremities without edema Skin has normal turgor at this point Ostomy remains intubated to prevent obstruction from edema to nipple Moderate to severe protein calorie malnutrition up to 65cc/hr TF to meet goal calorie counts, daily weights , MVI, goal of 100 lbs prior to d/c tf MVI VICENTE resolved turn IVF down to 75 ml/hr Hyponatremia resolved with NS rehydration J--tube replaced imaging reviewed Likely will need several more days to actively wean off IVF, drain/tube care teaching management and transition to PO Wound infection superficial local wound care integrative med f/u visit tomorrow anticipate d/c tomorrow on tube feeds 01/11/17 10:38 01/12/17 12:22 01/13/17 16:44 Objective: Vital Signs Temp Pulse Resp BP Pulse Ox 36.8 C 87 18 106/75 92 01/13/17 08:22 01/13/17 15:46 01/13/17 15:46 01/13/17 15:46 01/13/17 15:46 Laboratory Results 01/08/17 04:30 01/09/17 04:58 01/12/17 01/13/17 01/14/17 05:59 05:59 05:59 Intake Total 5342 3436 Output Total 336 946 Balance 5855 4004 ICD10 Worksheet Patient Problems: Problems Problem Status Onset Abdominal abscess Acute
[2017-01-13] MEDS: CITALOPRAM 20 MG TAB PO SCH (19:59)
[2017-01-13] MEDS: lamoTRIgine 100 MG TAB PO SCH (19:59)
[2017-01-13] MEDS: LORazepam 1 MG TAB PO PRN (23:28)
[2017-01-14] MEDS: oxyCODONE IR 5 MG TAB PO PRN ×4 (01:35→19:41)
[2017-01-14] MEDS: ASCORBIC ACID 500 MG TAB PO SCH (09:12)
[2017-01-14] MEDS: MULTIVITAMINS 1 EACH TAB PO SCH (09:12)
--- NOTE | 2017-01-14 16:13 | ASMTCMCOM ---
CM Note CM Note Notes: CM met w/ pt for dispo planning. Pt reports that she plans on taking some time off from school and stay w/ her Mom in [place]. Pt was drowsy and nodding off while speaking w/ NIKKY. CM spoke w/ Leticia at [facility] home infusion and informed her of this information. CM called [facility] to inform them pt will most likely be moving back to [place] for a while. Leticia will call CM back to provide a list of HC agencies to have RN services. CM to follow. Date Signed: 01/14/2017 04:12 PM Electronically Signed By:BRENDA Farah
--- NOTE | 2017-01-14 16:13 | ASMTCMCOM ---
CM Note CM Note Notes: CM met w/ pt for dispo planning. Pt reports that she plans on taking some time off from school and stay w/ her Mom in [place]. Pt was drowsy and nodding off while speaking w/ NIKKY. CM spoke w/ Leticia at [facility] home infusion and informed her of this information. CM called [facility] to inform them pt will most likely be moving back to [place] for a while. Leticia will call CM back to provide a list of HC agencies to have RN services. CM to follow. Date Signed: 01/14/2017 04:12 PM Electronically Signed By:BRENDA Farah
--- NOTE | 2017-01-14 16:13 | ASMTCMCOM ---
CM Note CM Note Notes: CM met w/ pt for dispo planning. Pt reports that she plans on taking some time off from school and stay w/ her Mom in [place]. Pt was drowsy and nodding off while speaking w/ NIKKY. CM spoke w/ Leticia at [facility] home infusion and informed her of this information. CM called [facility] to inform them pt will most likely be moving back to [place] for a while. Leticia will call CM back to provide a list of HC agencies to have RN services. CM to follow. Date Signed: 01/14/2017 04:12 PM Electronically Signed By:BRENDA Farah
--- NOTE | 2017-01-14 17:22 | SOAPPROG ---
SOAP Progress Note Assessment/Plan: Assessment:excellent progress. tolerating feeds. minimal gtube aspiration. minimal po desire. avss. comfortable. abd soft, nondistended. midline incision with superficial seroma/hyperemia - no erythema - surrounding gtube bumper pressure sore - loosened and turned. she did not bring in all of the parts for her pump unfortunately - she has been actively working with staff to use our jtube pump and supply setup with assistance - still needing ongoing help here. adv po as tolerated. planning to maintain active jtube feeds for multiple weeks until she demonstrates adequate po tolerance. local wound care instructions explained regarding her midline wound care. she has been in contact with her continent ileostomy surgeon in [place] - all in agreement with maintaining cannulation for now - agree that this dysfunction is likely weight loss related. she is in agreement with discharge plan for tomorrow. will arrange [facility] to assist. good night. better with IVF. drained less out of gtube today. ileostomy thinner. pain better. avss. appears much less dehydrated today. comfortable. avss. abd soft. jtube repositioned. gtube secure. she seems to be tolerating more of her gastric secretions than before. will plan to increase tube feeds (30-35cal/kg/day). will try to maximize free water via jtube. will try smaller po volumes as tolerated. will cap ileostomy tube and have patient flush. she will also aspirate her gtube and monitor the output for better gastroparesis assessment. she will replace her gtube aspirate via her jtube. will continue IVF today. nutritional plan reviewed with dietary. will also have patient bring her equipment from home so that we can help her troubleshoot the mechanics of a hopeful discharge on Friday. she is pleased and motivated with her progress. cautious optimism here. feeling much better today. no further syncopal episodes. pain better. still needing to vent gastrostomy frequently. better spirits today. seen at bedside with nurse earlier today. avss. comfortable. abd soft, less tender. tubes secure. lytes better (k 3.3, bun/cr normal). Syncope, hyponatremia, hyperkalemia, acute renal insufficiency, elevated LFT, hypercalcemia all improved with IVF resuscitation. Tolerating tube feeds well. Extensive discussion with patient and behavioral health nurse earlier today regarding short and superintendent container terminal goals. patient dropping out of school to focus on her health this semester. needs continuous caloric intake for ultimate gastric function assessment to be determined. patient motivated and committed to taking care of her needs. she is aware that this will take many weeks to months for her progress to be measured. will leave stoma cannulated for now. K + supplement. supportive care. apprec Nurse [place] assessment earlier today. trying to connect gtube with jtube if able with contin jtube feeds to help minimize ongoing fluid losses - hydration will be an issue with her goal tube feeds and free water calcs. Plan: 01/08/17 17:37 01/08/17 21:19 01/10/17 13:24 01/14/17 17:16 Objective: Vital Signs Temp Pulse Resp BP Pulse Ox 36.8 C 73 14 99/57 L 93 01/14/17 15:37 01/14/17 15:37 01/14/17 15:37 01/14/17 15:37 01/14/17 15:37 Laboratory Results 01/08/17 04:30 01/09/17 04:58 01/13/17 01/14/17 01/15/17 05:59 05:59 05:59 Intake Total 3432 2057 1400 Output Total 235 Balance 3197 2057 1400 ICD10 Worksheet Patient Problems: Problems Problem Status Onset Abdominal abscess Acute
[2017-01-14] MEDS: CITALOPRAM 20 MG TAB PO SCH (19:41)
[2017-01-14] MEDS: lamoTRIgine 100 MG TAB PO SCH (19:41)
[2017-01-14] MEDS: LORazepam 1 MG TAB PO PRN (20:42)
[2017-01-15] MEDS: oxyCODONE IR 5 MG TAB PO PRN ×2 (01:41→12:07)
[2017-01-15 07:59] VITALS: BP 105/56; PULSE 65; RESP 14; TEMP 99; O2SAT 95
[2017-01-15] MEDS: MULTIVITAMINS 1 EACH TAB PO SCH (10:51)
[2017-01-15] MEDS: ASCORBIC ACID 500 MG TAB PO SCH (10:52)
--- NOTE | 2017-01-15 12:51 | SOAPPROG ---
SOAP Progress Note Assessment/Plan: Assessment:no overnight issues. she has demonstrated competency with her tube feeds with staff. she describes leakage around her ileostomy catheter. she has no drainage issues. she drank two large water bottles yesterday. her appetite is nominal. she is ready for dc today. she lost her student housing and will be staying in [facility] with her in [facility] for 1 weeks then back home to [place] with her mom. Afebrile. abd soft. incision healing well. plan for dc today. she and Will express readiness. will see back in one week. will replace ileostomy catheter until office follow-up. diet as able. cont j tube feeds until office follow-up. can consider switching to gtube feeds if able then until po adequate. excellent progress. tolerating feeds. minimal gtube aspiration. minimal po desire. avss. comfortable. abd soft, nondistended. midline incision with superficial seroma/hyperemia - no erythema - surrounding gtube bumper pressure sore - loosened and turned. she did not bring in all of the parts for her pump unfortunately - she has been actively working with staff to use our jtube pump and supply setup with assistance - still needing ongoing help here. adv po as tolerated. planning to maintain active jtube feeds for multiple weeks until she demonstrates adequate po tolerance. local wound care instructions explained regarding her midline wound care. she has been in contact with her [place] ileostomy surgeon in [place] - all in agreement with maintaining cannulation for now - agree that this dysfunction is likely weight loss related. she is in agreement with discharge plan for tomorrow. will arrange [facility] to assist. good night. better with IVF. drained less out of gtube today. ileostomy thinner. pain better. avss. appears much less dehydrated today. comfortable. avss. abd soft. jtube repositioned. gtube secure. she seems to be tolerating more of her gastric secretions than before. will plan to increase tube feeds (30-35cal/kg/day). will try to maximize free water via jtube. will try smaller po volumes as tolerated. will cap ileostomy tube and have patient flush. she will also aspirate her gtube and monitor the output for better gastroparesis assessment. she will replace her gtube aspirate via her jtube. will continue IVF today. nutritional plan reviewed with dietary. will also have patient bring her equipment from home so that we can help her troubleshoot the mechanics of a hopeful discharge on Friday. she is pleased and motivated with her progress. cautious optimism here. feeling much better today. no further syncopal episodes. pain better. still needing to vent gastrostomy frequently. better spirits today. seen at bedside with nurse earlier today. avss. comfortable. abd soft, less tender. tubes secure. lytes better (k 3.3, bun/cr normal). Syncope, hyponatremia, hyperkalemia, acute renal insufficiency, elevated LFT, hypercalcemia all improved with IVF resuscitation. Tolerating tube feeds well. Extensive discussion with patient and behavioral health nurse earlier today regarding short and manager intermediate goals. patient dropping out of school to focus on her health this semester. needs continuous caloric intake for ultimate gastric function assessment to be determined. patient motivated and committed to taking care of her needs. she is aware that this will take many weeks to months for her progress to be measured. will leave stoma cannulated for now. K + supplement. supportive care. apprec Nurse Cole assessment earlier today. trying to connect gtube with jtube if able with contin jtube feeds to help minimize ongoing fluid losses - hydration will be an issue with her goal tube feeds and free water calcs. Plan: 01/08/17 17:37 01/08/17 21:19 01/10/17 13:24 01/14/17 17:16 01/15/17 12:47 Objective: Vital Signs Temp Pulse Resp BP Pulse Ox 37.2 C 65 14 105/56 L 95 01/15/17 07:58 01/15/17 07:58 01/15/17 07:58 01/15/17 07:58 01/15/17 07:58 Laboratory Results 01/08/17 04:30 01/09/17 04:58 01/14/17 01/15/17 01/16/17 05:59 05:59 05:59 Intake Total 2056 2279 Balance 2056 2279 ICD10 Worksheet Patient Problems: Problems Problem Status Onset Abdominal abscess Acute
--- NOTE | 2017-01-15 12:57 | PDIAF ---
- Diagnosis Code Status: Full Code - Medication Management Discharge Medications: Medications to Continue on Transfer Ascorbic Acid [Vitamin C 500 mg (*)] 500 mg PO DAILY 12/03/16 [Last Taken ] Citalopram [CeleXA 20 MG] 20 mg PO HS 12/03/16 [Last Taken 12/24/16] lamoTRIgine [LamICTAL 100 MG (*)] 100 mg PO HS 12/03/16 [Last Taken 12/24/16] Multivitamins [Multivitamin (*)] 1 each PO DAILY tab 01/15/17 [Last Taken Unknown] oxyCODONE IR [Oxycodone Ir (*)] 5 - 10 mg PO Q4HRS PRN #30 tab 01/15/17 [Last Taken Unknown] Discharge Medications: Refer to the Discharge Home Medication list for PRN reason. - Orders Services needed: Home Nursing Home Care Face to Face: I certify that this patient was under my care and that I had the required [id number] encounter meeting the encounter requirements on the discharge day. My findings support the fact that the patient is homebound as defined in Home Care Face to Face Continued: CMS Chapter 7 Medicare Benefits Manual 30.1.1 , The condition of the patient is such that there exists a normal inability to leave home and consequently, leaving home would require a considerable and taxing effort. Diet Recommendation: no restrictions on diet, other (soft foods - advance as able - record daily calorie/food log with tolerance level noted) Diet Texture: Regular Texture Diet Tube feeding: vivonex 65cc/hr with 75cc/hr water flushes Weigh Patient: weekly Wound Care Instructions: aspirate gtube daily - assess quantity and write down results. leave owen in ileostomy stoma - irrigate tid/prn with 60cc tap water. soap and water daily to midline incision - cover with dry gauze. Activity/Weight Bearing Restrictions: no restrictions - Follow Up Care Current Providers and Referrals: NONE *PRIMARY CARE P,. [Primary Care Provider] - Richy Yao MD [Medical Doctor] - follow up in 1 week (f/u 1 week - call for appointment)
--- NOTE | 2017-01-15 14:12 | GDS ---
[f rep st] DISCHARGE SUMMARY REASON FOR ADMISSION: Syncope, dehydration, severe malnutrition, intestinal pseudo-obstruction, failure to thrive. 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 A surgical gastrojejunostomy bypass was created, as well as PEG tube placement and surgical J-tube placement during that admission. She was discharged to home. She was doing well after that admission with plans to continue jejunal tube feeding at home continuously. She presented to the office the following day with syncope and failure to thrive. She was admitted on this admission with multiple diagnoses, including syncope, hyponatremia, hyperkalemia, acute renal insufficiency, elevated liver enzymes, hypercalcemia. Her electrolyte abnormalities and acute renal insufficiency were all felt secondary to severe dehydration as the patient had not turned on her tube feeds or taken any oral intake since discharge the day prior. Her electrolyte abnormalities all rapidly normalized with supportive care measures of fluid resuscitation. Her hospital course was complicated by inadvertent removal of her surgical jejunostomy tube. This did need to be replaced under fluoroscopic assistance. The patient was evaluated by Claudia Milner from [facility]. Extensive time was spent discussing the patient's ongoing future care plans, for which she ultimately agreed to drop out of this semester of school to focus on getting better. She was discharged to home, tolerating continuous Vivonex jejunal feeds at 65 cc an hour with 75 cc water flushes every 4 hours. She was tolerating some increasing amounts of oral intake prior to discharge. Her gastrostomy tube showed minimal residuals, suggesting improvement in her SMA syndrome and/or patency of her gastrojejunostomy. Her spirits were markedly improved, and she demonstrated competency working her jejunal tube pump, as well as taking care of her G-tube ileostomy catheters, as well as superficial wound separations. She and her fiance both stated that they were ready for discharge at this time. She lost her student housing the day prior to admission and plans to be returning to her in-law's house in [place]. She states that she has 1 week's supply of food, including Vivonex tube feeds. Additional food arrangements will be coordinated prior to discharge. She will be seen by Dr. Yao in followup in 1 week. She will resume her Celexa and lamotrigine at home. She was given prescriptions for oxycodone for intermittent discomfort. A goal for tapering off her narcotic by the end of the week was discussed and reviewed. Followup information was again provided. All questions were entertained prior to leaving. /[id number]/MODL MTDD
--- NOTE | 2017-01-15 14:50 | ASMTCMCOM ---
CM Note CM Note Notes: Pt is being discharged today. CM met w/ pt, pts fiance and pts fiance's mother. Pt reports that she will be staying w/ her fiance in [place] (address is [address] [place] [id number]). CM spoke w/ Leticia at [facility] and notified her that pt will be discharging today. CM made a referral to [facility] in [place] and they are able to take pt. CM sent over d/c orders to both [facility] and [facility] home infusion. CM available for changes. Date Signed: 01/15/2017 02:49 PM Electronically Signed By:BRENDA Farah
--- NOTE | 2017-01-15 14:50 | ASMTCMCOM ---
CM Note CM Note Notes: Pt is being discharged today. CM met w/ pt, pts fiance and pts fiance's mother. Pt reports that she will be staying w/ her fiance in [place] (address is [address] [place] [address]). CM spoke w/ Leticia at [facility] and notified her that pt will be discharging today. CM made a referral to [facility] in [place] and they are able to take pt. CM sent over d/c orders to both [facility] and [facility] home infusion. CM available for changes. Date Signed: 01/15/2017 02:49 PM Electronically Signed By:BRENDA Farah
--- NOTE | 2017-01-15 14:50 | ASMTCMCOM ---
CM Note CM Note Notes: Pt is being discharged today. CM met w/ pt, pts fiance and pts fiance's mother. Pt reports that she will be staying w/ her fiance in [place] (address is [address] [place] [id number]). CM spoke w/ Leticia at [facility] and notified her that pt will be discharging today. CM made a referral to [facility] in [place] and they are able to take pt. CM sent over d/c orders to both [facility] and [facility] home infusion. CM available for changes. Date Signed: 01/15/2017 02:49 PM Electronically Signed By:BRENDA Farah
--- NOTE | 2017-01-16 14:29 | ASDISCHSUM ---
Discharge Information Plan Status:IV ABX/Infusion Medically Cleared to Leave: Discharge Date:01/15/2017 05:45 PM D/C Disposition:[facility] Health Service [facility] D/C Disposition:Home, Routine, Self-Care Projected Discharge Date:01/16/2017 11:00 AM Transportation at D/C:Family Discharge Delay Reason: Follow-Up Date:01/16/2017 11:00 AM Discharge Slot: Final Diagnosis: Placement Information Referral Type:Home Infusion Referral ID:[id number] Provider Name:[facility] Address 1[address] Phone Number: Address 2: Fax Number: City:[place] Selection Factors: State:[place] Referral Type:*Home Health Care Services Referral ID:[id number] Provider Name:[facility] Address 1:[address] Address 2: City:[facility] Selection Factors: State:[place] Patient Contact Information Contact Name:AGULIAR Relationship:Other Address: Work Phone: City: [facility] Phone: [facility] Code: Email: Financial Information Financial Class:HMO and PPO Plans Primary Plan Desc: OUT OF [facility] PPO Primary Plan Number:[id number] Secondary Plan Desc:MED[place] Secondary Plan Number:[id number] Assessment Information BC CM Progress Note CM Note CM Note Notes: Pt readmitted after one day, spoke w/, states pt understands cannot stop feedings and needs to take a break from school to focus on health, will involve Claudia Paula for consult, would benefit from [employer] social assistance here and as outpt. states pt willing to put in the effort. NIKKY left message for Claudia Paula. Date Signed: 01/07/2017 04:04 PM Electronically Signed By:Claudia Mccurdy RN [facility] CM Progress Note CM Note CM Note Notes: Pt. has J tube for her nutrition. Today SWer got in touch w/ nutrition home provider, [facility]. Liaison from [facility] is Leticia . [facility] to assume home care needs again at d/c. [facility] will provide nutrition and supplies and clinical laboratory assistant. Homecare RN to be provided by [facility]. Gloriar checked in w/ Sue at [facility] who will follow for d/c RN. Claudia Milner RN, RAILROAD DISPATCHER (behavioral health) saw Pt. today. Will have her complete note in the medical chart soon. Please see her complete notes. SW to follow for d/c POC. Date Signed: 01/08/2017 03:39 PM Electronically Signed By:Melyssa Silva LCSW [facility] CM Progress Note CM Note CM Note Notes: Today SWer checked in w/ bedside RN about Pt's d/c plan. RN states Dr. Yao came to see Pt. in am and states that Pt. will d/c on Friday if all is stable. Gloriar checked-in w/ Leticia to confirm that all is ready at [facility] nutrition for Pt's case. Leticia plans to come to [facility] on Friday to help w/ teaching Pt. how to use nutrition pump. SWer let [facility] know about d/c plans. [facility] will provide RN at home. Will need to get address where Pt. is staying after d/c for [facility] and [facility]. CM to follow. Date Signed: 01/10/2017 01:19 PM Electronically Signed By:Melyssa Silva LCSW [facility] Progress Note CM Note CM Note Notes: 01/12/2017 Case Management Note met w/pt and jesika Solis. Pt expressed frustration with care under RN yesterday. Agreed to have Case Management arrange for patient advocate to visit and agreed to case management sharing information with pharmacist in charge. Encouraged pt to advocate for self in the moment rather than the next day. Pt in agreement to notify pharmacist in charge if situation arises in future. Discussed how confidentiality works with charting. Pt agreeable to charting happening but upset by interpretation of some notes, specificallly Claudia Milner notes and those of case management by nursing staff. Case Management passed that concern along to the pharmacist in charge who will pass along in report. Case Management arranged pt advocate visit. Per pt incision is infection and there are plans to have incision drained tomorrow. Case management to follow. Date Signed: 01/12/2017 05:14 PM Electronically Signed By:Mercedez Palacios RN [facility] NIKKY Progress Note CM Note NIKKY Note Notes: NIKKY met w/ pt for dispo planning. Pt reports that she plans on taking some time off from school and stay w/ her Mom in [place]. Pt was drowsy and nodding off while speaking w/ NIKKY. NIKKY spoke w/ Leticia at [facility] infusion and informed her of this information. NIKKY called [facility] to inform them pt will most likely be moving back to [place] for a while. Leticia will call CM back to provide a list of HC agencies to have RN services. CM to follow. Date Signed: 01/14/2017 04:12 PM Electronically Signed By:BRENDA Farah [facility] Progress Note CM Note CM Note Notes: Pt is being discharged today. CM met w/ pt, pts el and pts el's mother. Pt reports that she will be staying w/ her fiance in [place] (address is [address] [place] [address]). CM spoke w/ Leticia at [facility] and notified her that pt will be discharging today. CM made a referral to [facility] in [place] and they are able to take pt. CM sent over d/c orders to both [facility] and [facility]. CM available for changes. Date Signed: 01/15/2017 02:49 PM Electronically Signed By:BRENDA Farah Intervention Information
--- NOTE | 2017-01-16 14:29 | ASDISCHSUM ---
Discharge Information Plan Status:IV ABX/Infusion Medically Cleared to Leave: Discharge Date:01/15/2017 05:45 PM D/C Disposition:Home Health Service [facility] D/C Disposition:Home, Routine, Self-Care Projected Discharge Date:01/16/2017 11:00 AM Transportation at D/C:Family Discharge Delay Reason: Follow-Up Date:01/16/2017 11:00 AM Discharge Slot: Final Diagnosis: Placement Information Referral Type:Home Infusion Referral ID:[id number] Provider Name:[facility] Address 1[address] Phone Number: Address 2: Fax Number: City:[place] Selection Factors: State:[place] Referral Type:*Home Health Care Services Referral ID:[id number] Provider Name:[facility] Address 1:[address] Address 2: City:[facility] Selection Factors: State:[place] Patient Contact Information Contact Name:AGUILAR Relationship:Other Address: Work Phone: City: [facility] Phone: [facility] Code: Email: Financial Information Financial Class:HMO and PPO Plans Primary Plan Desc: OUT OF [facility] PPO Primary Plan Number:[id number] Secondary Plan Desc:MED[place] Secondary Plan Number:[id number] Assessment Information BC CM Progress Note CM Note CM Note Notes: Pt readmitted after one day, spoke w/, states pt understands cannot stop feedings and needs to take a break from school to focus on health, will involve Claudia Paula for consult, would benefit from [employer] social assistance here and as outpt. states pt willing to put in the effort. NIKKY left message for Claudia Paula. Date Signed: 01/07/2017 04:04 PM Electronically Signed By:Claudia Mccurdy RN [facility] CM Progress Note CM Note CM Note Notes: Pt. has J tube for her nutrition. Today SWer got in touch w/ nutrition home provider, [facility]. Liaison from [facility] is Leticia . [facility] to assume home care needs again at d/c. [facility] will provide nutrition and supplies and fisher. Homecare RN to be provided by [facility]. Gloriar checked in w/ Sue at [facility] who will follow for d/c RN. Claudia Milner RN, KRAFT DIGESTER OPERATOR (behavioral health) saw Pt. today. Will have her complete note in the medical chart soon. Please see her complete notes. SW to follow for d/c POC. Date Signed: 01/08/2017 03:39 PM Electronically Signed By:Melyssa Silva LCSW [facility] CM Progress Note CM Note CM Note Notes: Today SWer checked in w/ bedside RN about Pt's d/c plan. RN states Dr. Yao came to see Pt. in am and states that Pt. will d/c on Friday if all is stable. Gloriar checked-in w/ Leticia to confirm that all is ready at [facility] nutrition for Pt's case. Leticia plans to come to [facility] on Friday to help w/ teaching Pt. how to use nutrition pump. SWer let [facility] know about d/c plans. [facility] will provide RN at home. Will need to get address where Pt. is staying after d/c for [facility] and [facility]. CM to follow. Date Signed: 01/10/2017 01:19 PM Electronically Signed By:Melyssa Silva LCSW [facility] Progress Note CM Note CM Note Notes: 01/12/2017 Case Management Note met w/pt and jesika Solis. Pt expressed frustration with care under RN yesterday. Agreed to have Case Management arrange for patient advocate to visit and agreed to case management sharing information with retort loader. Encouraged pt to advocate for self in the moment rather than the next day. Pt in agreement to notify retort loader if situation arises in future. Discussed how confidentiality works with charting. Pt agreeable to charting happening but upset by interpretation of some notes, specificallly Claudia Milner notes and those of case management by nursing staff. Case Management passed that concern along to the retort loader who will pass along in report. Case Management arranged pt advocate visit. Per pt incision is infection and there are plans to have incision drained tomorrow. Case management to follow. Date Signed: 01/12/2017 05:14 PM Electronically Signed By:Mercedez Palacios RN [facility] NIKKY Progress Note CM Note NIKKY Note Notes: NIKKY met w/ pt for dispo planning. Pt reports that she plans on taking some time off from school and stay w/ her Mom in [place]. Pt was drowsy and nodding off while speaking w/ NIKKY. NIKKY spoke w/ Leticia at [facility] infusion and informed her of this information. NIKKY called [facility] to inform them pt will most likely be moving back to [place] for a while. Leticia will call CM back to provide a list of HC agencies to have RN services. CM to follow. Date Signed: 01/14/2017 04:12 PM Electronically Signed By:BRENDA Farah [facility] Progress Note CM Note CM Note Notes: Pt is being discharged today. CM met w/ pt, pts el and pts el's mother. Pt reports that she will be staying w/ her fiance in [place] (address is [address] [place] [address]). CM spoke w/ Leticia at [facility] and notified her that pt will be discharging today. CM made a referral to [facility] in [place] and they are able to take pt. CM sent over d/c orders to both [facility] and [facility]. CM available for changes. Date Signed: 01/15/2017 02:49 PM Electronically Signed By:BRENDA Farah Intervention Information
--- NOTE | 2017-01-16 14:29 | ASDISCHSUM ---
Discharge Information Plan Status:IV ABX/Infusion Medically Cleared to Leave: Discharge Date:01/15/2017 05:45 PM D/C Disposition:Home Health Service [facility] D/C Disposition:Home, Routine, Self-Care Projected Discharge Date:01/16/2017 11:00 AM Transportation at D/C:Family Discharge Delay Reason: Follow-Up Date:01/16/2017 11:00 AM Discharge Slot: Final Diagnosis: Placement Information Referral Type:Home Infusion Referral ID:[id number] Provider Name:[email or web address] Address 1:[address] Phone Number: Address 2: Fax Number: City:[place] Selection Factors: State:[place] Referral Type:*Home Health Care Services Referral ID:[id number] Provider Name:[facility] Address 1:[address] Address 2: City:[facility] Selection Factors: State:[place] Patient Contact Information Contact Name:AGUILAR Relationship:Other Address: Work Phone: City: [facility] Phone: [facility] Code: Email: Financial Information Financial Class:HMO and PPO Plans Primary Plan Desc: OUT OF [facility] PPO Primary Plan Number:[id number] Secondary Plan Desc:MEDICA[place] Secondary Plan Number:[id number] Assessment Information BC CM Progress Note CM Note CM Note Notes: Pt readmitted after one day, spoke w/, states pt understands cannot stop feedings and needs to take a break from school to focus on health, will involve Claudia Paula for consult, would benefit from [employer] social assistance here and as outpt. states pt willing to put in the effort. NIKKY left message for Claudia Paula. Date Signed: 01/07/2017 04:04 PM Electronically Signed By:Claudia Mccurdy RN [facility] CM Progress Note CM Note CM Note Notes: Pt. has J tube for her nutrition. Today SWer got in touch w/ nutrition home provider, [facility]. Liaison from [facility] is Leticia . [facility] to assume home care needs again at d/c. [facility] will provide nutrition and supplies and product distribution specialist. Homecare RN to be provided by [facility]. Gloriar checked in w/ Sue at [facility] who will follow for d/c RN. Claudia Milner RN, FIELD MARKETING ASSOCIATE (behavioral health) saw Pt. today. Will have her complete note in the medical chart soon. Please see her complete notes. SW to follow for d/c POC. Date Signed: 01/08/2017 03:39 PM Electronically Signed By:Melyssa Silva LCSW [facility] CM Progress Note CM Note CM Note Notes: Today SWer checked in w/ bedside RN about Pt's d/c plan. RN states Dr. Yao came to see Pt. in am and states that Pt. will d/c on Friday if all is stable. Gloriar checked-in w/ Leticia to confirm that all is ready at [facility] nutrition for Pt's case. Leticia plans to come to [facility] on Friday to help w/ teaching Pt. how to use nutrition pump. SWer let [facility] know about d/c plans. [facility] will provide RN at home. Will need to get address where Pt. is staying after d/c for [facility] and [facility]. CM to follow. Date Signed: 01/10/2017 01:19 PM Electronically Signed By:Melyssa Silva LCSW [facility] Progress Note CM Note CM Note Notes: 01/12/2017 Case Management Note met w/pt and jesika Solis. Pt expressed frustration with care under RN yesterday. Agreed to have Case Management arrange for patient advocate to visit and agreed to case management sharing information with stained glass joiner. Encouraged pt to advocate for self in the moment rather than the next day. Pt in agreement to notify stained glass joiner if situation arises in future. Discussed how confidentiality works with charting. Pt agreeable to charting happening but upset by interpretation of some notes, specificallly Claudia Milner notes and those of case management by nursing staff. Case Management passed that concern along to the stained glass joiner who will pass along in report. Case Management arranged pt advocate visit. Per pt incision is infection and there are plans to have incision drained tomorrow. Case management to follow. Date Signed: 01/12/2017 05:14 PM Electronically Signed By:Mercedez Palacios RN [facility] NIKKY Progress Note CM Note NIKKY Note Notes: NIKKY met w/ pt for dispo planning. Pt reports that she plans on taking some time off from school and stay w/ her Mom in [place]. Pt was drowsy and nodding off while speaking w/ NIKKY. NIKKY spoke w/ Leticia at [facility] and informed her of this information. NIKKY called [facility] to inform them pt will most likely be moving back to [place] for a while. Leticia will call CM back to provide a list of HC agencies to have RN services. CM to follow. Date Signed: 01/14/2017 04:12 PM Electronically Signed By:BRENDA Farah [facility] Progress Note CM Note CM Note Notes: Pt is being discharged today. CM met w/ pt, pts el and pts el's mother. Pt reports that she will be staying w/ her fiance in [place] (address is [address] [place] [address]). CM spoke w/ Leticia at [facility] and notified her that pt will be discharging today. CM made a referral to [facility] in [place] and they are able to take pt. CM sent over d/c orders to both [facility] and [facility]. CM available for changes. Date Signed: 01/15/2017 02:49 PM Electronically Signed By:BRENDA Farah Intervention Information
--- NOTE | 2017-01-20 11:16 | PQFORM ---
PHYSICIAN QUERY FORM Needs Your Response This query form is being sent to you to assure this patient record is coded properly. Please respond to the question below: REGIONAL LIAISON QUESTION: Dear In reviewing this patients medical record the patient had the diagnosis of ' Protein calorie malnutrition.' H&P notes patient was admitted for " Malnutrition and Dehydration" with the patient having "difficulty maintaining continuous feeds" and was later diagnosed with 'Severe Malnutrition." In the SOAP notes dated 01/11-01/12 patient was diagnosed with "Protein calorie malnutrition." On 01/13 SOAP note diagnosed patient with "Moderate to Severe protein calorie malnutrition." After study, should the diagnosis of "Severe protein calorie malnutrition" be included in the Discharge summary? ____ Yes ____ No ___XXX_ Unable to determine Other more appropriate diagnosis Thank you VALENTINE Berman [facility]/Coding Dept. [phone] INSTRUCTIONS FOR RESPONSE: Answer question by clicking on the "Edit Document" button. Move cursor to area below the stars. When complete, hit "Save." Click on the "Sign" button, then click "Sign" again. Type in your PIN and hit "Enter." MTDD
--- NOTE | 2017-01-20 11:16 | PQFORM ---
PHYSICIAN QUERY FORM Needs Your Response This query form is being sent to you to assure this patient record is coded properly. Please respond to the question below: MANUFACTURING ACCOUNTANT QUESTION: Dear In reviewing this patients medical record the patient had the diagnosis of ' Protein calorie malnutrition.' H&P notes patient was admitted for " Malnutrition and Dehydration" with the patient having "difficulty maintaining continuous feeds" and was later diagnosed with 'Severe Malnutrition." In the SOAP notes dated 01/11-01/12 patient was diagnosed with "Protein calorie malnutrition." On 01/13 SOAP note diagnosed patient with "Moderate to Severe protein calorie malnutrition." After study, should the diagnosis of "Severe protein calorie malnutrition" be included in the Discharge summary? ____ Yes ____ No ___XXX_ Unable to determine Other more appropriate diagnosis Thank you VALENTINE Berman [facility]/Coding Dept. [phone] INSTRUCTIONS FOR RESPONSE: Answer question by clicking on the "Edit Document" button. Move cursor to area below the stars. When complete, hit "Save." Click on the "Sign" button, then click "Sign" again. Type in your PIN and hit "Enter." MTDD
--- NOTE | 2017-01-20 11:16 | PQFORM ---
PHYSICIAN QUERY FORM Needs Your Response This query form is being sent to you to assure this patient record is coded properly. Please respond to the question below: DELIVERY PERSON QUESTION: Dear In reviewing this patients medical record the patient had the diagnosis of ' Protein calorie malnutrition.' H&P notes patient was admitted for " Malnutrition and Dehydration" with the patient having "difficulty maintaining continuous feeds" and was later diagnosed with 'Severe Malnutrition." In the SOAP notes dated 01/11-01/12 patient was diagnosed with "Protein calorie malnutrition." On 01/13 SOAP note diagnosed patient with "Moderate to Severe protein calorie malnutrition." After study, should the diagnosis of "Severe protein calorie malnutrition" be included in the Discharge summary? ____ Yes ____ No ___XXX_ Unable to determine Other more appropriate diagnosis Thank you VALENTINE Berman [facility]/Coding Dept. [phone] INSTRUCTIONS FOR RESPONSE: Answer question by clicking on the "Edit Document" button. Move cursor to area below the stars. When complete, hit "Save." Click on the "Sign" button, then click "Sign" again. Type in your PIN and hit "Enter." MTDD
== END 2017-01-15 17:45 | disposition home or self-care (01) | DRG 641 ==
LOC: OBSVTOIN 13:30 → F3E 13:30
PROVIDERS: ADMIT Surgery; ATTEND Surgery
PROC: 0DWDXUZ Revision of Feeding Device in Lower Intestinal Tract, External Approach (ICD-10-PCS; principal; 2017-01-10)
DX: E86.0 Dehydration (principal); T85.528A Displacement of other gastrointestinal prosthetic devices, implants and grafts, initial encounter; K59.8 Other specified functional intestinal disorders; D82.8 Immunodeficiency associated with other specified major defects; E87.1 Hypo-osmolality and hyponatremia; E87.5 Hyperkalemia; N28.9 Disorder of kidney and ureter, unspecified; R74.8 Abnormal levels of other serum enzymes; E83.52 Hypercalcemia; Z93.4 Other artificial openings of gastrointestinal tract status
CPT/HCPCS: J1170; J2060

== ENCOUNTER 2017-01-29 10:51 | Inpatient (IN) | payer BC, MEDICAID ==
[2017-01-29] MEDS ORDERED: NS 2,000 ML IV ONE (13:14)
[2017-01-29] MEDS ORDERED: ALTEPLASE 2 MG VIAL IVP PRN (13:19)
[2017-01-29 14:26] LABS: ANION GAP 20 mEq/L (8-16); CALCIUM 10.4 mg/dL (8.5-10.4); CARBON DIOXIDE 26 mEq/l (22-31); CHLORIDE 89 mEq/L (97-110); CREATININE 0.6 mg/dL (0.6-1.0); GLOMERULAR FILTRATION RATE > 60; GLUCOSE 99 mg/dL (70-100); MAGNESIUM 2.2 mg/dL (1.6-2.3); POTASSIUM 3.1 mEq/L (3.5-5.2); SODIUM 135 mEq/L (134-144)
[2017-01-29] MEDS ORDERED: POTASSIUM Cl (KCl) 100 ML IV SCH (15:00)
[2017-01-29] MEDS ORDERED: POTASSIUM Cl (KCl) 10 MEQ in NS 100 ML IV SCH (15:30)
[2017-01-29] MEDS ORDERED: DICYCLOMINE 10 MG CAP PO PRN (16:38)
[2017-01-29] MEDS: POTASSIUM Cl (KCl) 10 MEQ in NS 100 ML IV SCH ×5 (17:13→23:04)
[2017-01-29] MEDS: ACETAMINOPHEN/CODEINE 300/30MG TAB PO PRN ×2 (17:16→22:21)
[2017-01-29] MEDS: METOCLOPRAMIDE 10 MG/2 ML VIAL IVP SCH (17:41)
[2017-01-30] MEDS: METOCLOPRAMIDE 10 MG/2 ML VIAL IVP SCH ×4 (00:16→17:54)
[2017-01-30] MEDS: POTASSIUM Cl (KCl) 10 MEQ in NS 100 ML IV SCH ×5 (00:16→18:26)
[2017-01-30] MEDS: D5W 1/2 NS W/ 20 KCl/L 1,000 ML IV SCH ×2 (01:23→15:03)
[2017-01-30] MEDS: ACETAMINOPHEN/CODEINE 300/30MG TAB PO PRN ×2 (05:38→11:46)
[2017-01-30 06:36] LABS: ANION GAP 11 mEq/L (8-16); CALCIUM 8.5 mg/dL (8.5-10.4); CARBON DIOXIDE 24 mEq/l (22-31); CHLORIDE 105 mEq/L (97-110); CREATININE 0.5 mg/dL (0.6-1.0); GLOMERULAR FILTRATION RATE > 60; GLUCOSE 99 mg/dL (70-100); POTASSIUM 3.7 mEq/L (3.5-5.2); SODIUM 140 mEq/L (134-144)
[2017-01-30] MEDS ORDERED: POTASSIUM Cl (KCl) 100 ML IV SCH (13:30)
[2017-01-30] MEDS ORDERED: NS 1,000 ML IV ONE (13:42)
--- NOTE | 2017-01-30 13:48 | SOAPPROG ---
SOAP Progress Note Assessment/Plan: Assessment:feeling less light headed and dizzy. still with occasional subincisional pain. no further nausea or vomiting. avss. dry oral mucosa, sunken pupils. abd soft. incis clean. gtube with min output in bag. other tubes secure. concerns over proper feeds at home discussed (she states that she has had 2 home care deliveries since original discharge rather than one). severe dehydration, hypokalemia/hypochloremia - better with IVF, will give additional IV potassium. PICC placed yesterday for anticipated outpatient ongoing IVF boluses at home. will try to disconnect continent ileostomy cath today. UGI study tomorrow once lytes corrected for further SMA/GJ patency assessment. unclear ultimate disposition regarding GI motility. if gastroparesis continues, may be a candidate for compassionate care domperidon. possible dc tomorrow pending results? Plan: 01/30/17 13:44 Objective: Vital Signs Temp Pulse Resp BP Pulse Ox 37.0 C 69 12 86/52 L 96 01/30/17 08:00 01/30/17 08:00 01/30/17 08:00 01/30/17 08:00 01/30/17 08:00 Laboratory Results 01/30/17 06:00 01/29/17 01/30/17 01/31/17 05:59 05:59 05:59 Intake Total 2341.5 Output Total 0 Balance 2341.5 0 ICD10 Worksheet Patient Problems: Problems Problem Status Onset Abdominal abscess Acute
--- NOTE | 2017-01-30 14:49 | ASMTCMCOM ---
CM Note CM Note Notes: Pt. is a 21-year-old woman admitted with severe malnutrition and weight loss since her last admission to [facility]. Pt was discharged on 01/07/17 with home care through [facility] and enteral nutrition through [facility] Infusion - contat Leticia . After last admission Pt. was staying at her fimarko Solis's home: [facility], [place] [address]. [place] [facility] [place] [facility] to get her opinion on what has been happening at home. Await return call. There seems to be some discrepency between the Pt's account of the lack of success of her feeding at home and [facility]'s attempts to regularly work w/ Pt. on a possible better nutrition source - [employer] - that can be taken by mouth or through tube feeding. Leticia at [facility] states she has good documentation about their efforts to work w/ Pt. should medical team need details. Today Pt. asked for Customer Service Coordinator to get a MDPOA form. Has not yet completed form today. Claudia Milner, behavioral health RN and COMPLIANCE REPRESENTATIVE DEALER, worked w/ Pt. during previous admission. Eyad called Claudia today to ask that she see Pt. again for this admission. Await consult. Current plan: Re-up enteral feeds and home care at d/c. Date Signed: 01/30/2017 02:48 PM Electronically Signed By:Melyssa Silva LCSW
[2017-01-30] MEDS ORDERED: FLU VACC QS 2017-18 (3YR+)/PF 0.5 ML SYR (FLUARIX QUAD) IM ONE (15:22)
[2017-01-30] MEDS: DICYCLOMINE 10 MG CAP PO PRN ×2 (18:26→22:51)
--- NOTE | 2017-01-30 20:33 | GHP ---
[f rep st] PREOP HISTORY AND PHYSICAL DATE OF ADMISSION: 01/29/2017 REASON FOR ADMISSION: Dehydration, hypokalemia. 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 She has undergone multiple prior abdominal surgeries over her lifetime and has had multiple recent hospitalizations and discharges. She was initially seen a couple months ago with peritonitis after having undergone a continent ileostomy creation in [place] earlier this summer. She has been readmitted on multiple occasions with concerns of dehydration, malnutrition, gastroparesis, SMA syndrome. Most recent surgeries included a gastrojejunostomy creation with J-tube placement. She was discharged approximately 10 days ago with continuous J-tube feedings of 65 cc/hr of Vivonex, regular water flushes, and po intake as able. She has been suffering from recurring dehydration in the interim. She was in the [place] emergency room yesterday, where she was given multiple liters of fluid, as well as a potassium bolus. She was seen in the office this morning with complaints of ongoing concerns of dehydration with lightheadedness , dizziness, and near syncope. She was without other complaints. She reports that her G-tube, whereas previously she has had minimal output, has been putting out multiple liters a day. Her ileostomy has been putting out normal volumes of liquidy succus entericus. She has been tolerating her regular jejunal tube feeds with water flushes well. She is being admitted at this time for further fluid resuscitation and electrolyte correction. She will be having her stomach-emptying reassessed during this admission as well. PAST MEDICAL HISTORY: Intestinal pseudoobstruction, interstitial cell of Cajal deficiency, history of eating disorder. PAST SURGICAL HISTORY: Multiple prior exploratory laparoscopies with colonic resections, anastomoses, and most currently, total abdominal colectomy with continent ileostomy, gastrojejunostomy, PEG tube placement, feeding J-tube placement. MEDICATIONS: Celexa, lamotrigine, Tylenol with codeine p.r.n., Reglan, Vivonex tube feeds. ALLERGIES: Mustard, casein. SOCIAL HISTORY: No alcohol, no tobacco. 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 She is engaged. FAMILY HISTORY: Noncontributory. REVIEW OF SYSTEMS: Notable for her chronic ongoing GI concerns, history of prior eating disorder, malnutrition, anorexia. PHYSICAL EXAMINATION: VITAL SIGNS: Temperature 36, blood pressure 90/60, pulse 120. HEENT: The patient appears with dry oral mucosa, sunken pupils, anicteric, no cervical lymphadenopathy. HEART: Regular, tachycardic. LUNGS: Clear. ABDOMEN: Soft. Nicely healing midline incision. G-tube, J-tube, and ileostomy tube all secure. G-tube with 1000 cc of bilious fluid evacuated at bedside. Of note, she evacuated 1000 cc earlier this morning as well. EXTREMITIES: Warm without edema. NEUROLOGIC: Alert and appropriate. LABORATORY VALUES: Potassium yesterday in [place] 3.1. IMPRESSION: 1. Continued malnutrition. 2. Dehydration with associated near syncope. 3. Hypokalemia. 4. 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 5. History of eating disorder. PLAN: 1. The patient is being admitted for IV fluid resuscitation and electrolyte replacement. She has had a history of dehydration in the past requiring intermittent outpatient fluid boluses. PICC line will be placed with this likely being a necessary new development over her last multiple admissions. Will further look into her caloric intake. I am somewhat puzzled that she continues to become dehydrated with her severe electrolyte deficiencies while being on what should be adequate tube feeds. Will check in with her home care company and discuss with Dietary these concerns. The patient states that she is continuing with continuous tube feeds with minimal break in action. 2. Will further assess gastric motility. Upper GI series once electrolytes have been corrected. This care plan was discussed in detail with the patient and mother at bedside. /[id number]/MODL MTDD
[2017-01-31] MEDS: METOCLOPRAMIDE 10 MG/2 ML VIAL IVP SCH ×4 (00:35→17:45)
[2017-01-31] MEDS: D5W 1/2 NS W/ 20 KCl/L 1,000 ML IV SCH ×2 (04:16→17:45)
[2017-01-31 06:34] LABS: ANION GAP 10 mEq/L (8-16); CALCIUM 8.3 mg/dL (8.5-10.4); CARBON DIOXIDE 22 mEq/l (22-31); CHLORIDE 107 mEq/L (97-110); CREATININE 0.4 mg/dL (0.6-1.0); GLOMERULAR FILTRATION RATE > 60; GLUCOSE 112 mg/dL (70-100); POTASSIUM 3.9 mEq/L (3.5-5.2); SODIUM 139 mEq/L (134-144)
[2017-01-31] MEDS: ACETAMINOPHEN/CODEINE 300/30MG TAB PO PRN ×2 (11:54→17:45)
--- NOTE | 2017-01-31 17:58 | ASMTCMCOM ---
CM Note CM Note Notes: Today Eyad was able to eventually get in touch w/ Dr. Monaco (personal computer specialist) after staff at office tried to reach Dr. Yao. Gloriar wanted to ask Dr. Monaco if Pt. could benefit from being added to the hospitalist service for better coordination of care. Dr. Monaco states he does not feel that is appropriate at this time. Gloriar notified Dr. Monaco that Eyad had tried to contact behavioral health RN Claudia Milner for continuing care consult since she had seen Pt. last admission, but Claudia not available yesterday or today. Gloriar notified Dr. Monaco that no psychiatric/behavioral health consults have been done this admission. SWer recommends team read Claudia Milner's note from 01/09/2017 for thorough evaluation of Pt's psychiatric and psychosocial history. Eyad gave report to colleague RN NIKKY who will be covering tomorrow. Current d/c plan: D/c with [employer] for enteral feeds. Contact Leticia . Also d/c with [facility] RN . RN from last d/c with [facility] was Caitlin. Date Signed: 01/31/2017 05:57 PM Electronically Signed By:Melyssa Silva LCSW
--- NOTE | 2017-01-31 18:32 | SOAPPROG ---
SOAP Progress Note Assessment/Plan: Assessment:new crampy abdominal pain and stoma leakage prior to SBFT today. k 3.9 today. no other overnight issues. avss. min g tube drainage noted. comfortable at present time. ileostomy cannulated with >500cc post SBFT contents. SBFT reviewed directly with rads. improved SMA anatomy -still some mild bottle necking noted but better duodenal clearance. still persistent evidence of gastroparesis. patent gastrojejunostomy anastomosis. normal small bowel. wilman discussion with Andree regarding home tube feeds - she convincingly states that she has had her tube feeds off no more than 2 hours at any one time. she also states that she has received two deliveries from her home care company. 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 will plan to leave in her ileostomy catheter tonight and start cipro and flagyl. will cont tube feeds and IVF. will plan for dc home tomorrow with 3x weekly IV infusion until new plan otherwise figured out. per discussion with dietary, another tube feed option is available in the outpatient setting for her severe malnutrition that is more complete than her vivonex. she can continue po as tolerated - will unlikely tolerate much. will discuss with her usual GI MD re: Domperidon acquisition. > 90 minutes working with patient and in care coordination with other md's, upper caser, criminal justice social worker. feeling less light headed and dizzy. still with occasional subincisional pain. no further nausea or vomiting. avss. dry oral mucosa, sunken pupils. abd soft. incis clean. gtube with min output in bag. other tubes secure. concerns over proper feeds at home discussed (she states that she has had 2 home care deliveries since original discharge rather than one). severe dehydration, hypokalemia/hypochloremia - better with IVF, will give additional IV potassium. PICC placed yesterday for anticipated outpatient ongoing IVF boluses at home. will try to disconnect continent ileostomy cath today. UGI study tomorrow once lytes corrected for further SMA/GJ patency assessment. unclear ultimate disposition regarding GI motility. if gastroparesis continues , may be a candidate for compassionate care domperidon. possible dc tomorrow pending results? Plan: 01/30/17 13:44 01/31/17 18:31 01/31/17 18:34 Objective: Vital Signs Temp Pulse Resp BP Pulse Ox 36.8 C 91 16 95/66 L 96 01/31/17 16:00 01/31/17 16:00 01/31/17 16:00 01/31/17 16:00 01/31/17 16:00 Laboratory Results 01/31/17 05:50 01/30/17 01/31/17 02/01/17 05:59 05:59 05:59 Intake Total 2341.5 5316 Output Total 0 Balance 2341.5 5316 ICD10 Worksheet Patient Problems: Problems Problem Status Onset Abdominal abscess Acute
[2017-01-31] MEDS ORDERED: METOCLOPRAMIDE 10 MG/2 ML VIAL IVP PRN (18:45)
[2017-01-31] MEDS ORDERED: DICYCLOMINE 10 MG CAP TUBE PRN (20:00)
[2017-01-31] MEDS ORDERED: ACETAMINOPHEN/CODEINE 300/30MG TAB TUBE PRN (20:00)
[2017-01-31] MEDS: metroNIDAZOLE 250 MG TAB TUBE SCH (20:58)
[2017-01-31] MEDS: CIPROFLOXACIN 500 MG TAB TUBE SCH (20:58)
[2017-01-31] MEDS ORDERED: CITALOPRAM 20 MG TAB TUBE SCH (21:00)
[2017-01-31] MEDS ORDERED: lamoTRIgine 100 MG TAB TUBE SCH (21:00)
[2017-01-31 23:57] VITALS: O2SAT 97
[2017-02-01 05:02] LABS: ANION GAP 10 mEq/L (8-16); CALCIUM 8.6 mg/dL (8.5-10.4); CARBON DIOXIDE 22 mEq/l (22-31); CHLORIDE 107 mEq/L (97-110); CREATININE 0.5 mg/dL (0.6-1.0); GLOMERULAR FILTRATION RATE > 60; GLUCOSE 94 mg/dL (70-100); POTASSIUM 4.2 mEq/L (3.5-5.2); SODIUM 139 mEq/L (134-144)
[2017-02-01] MEDS: D5W 1/2 NS W/ 20 KCl/L 1,000 ML IV SCH (07:00)
[2017-02-01 08:33] VITALS: BP 111/70; PULSE 95; RESP 14; TEMP 98.3
[2017-02-01] MEDS ORDERED: ASCORBIC ACID 500 MG TAB TUBE SCH (09:00)
--- NOTE | 2017-02-01 09:15 | PDIAF ---
- Diagnosis Code Status: Full Code - Medication Management Discharge Medications: Medications to Continue on Transfer Ascorbic Acid [Vitamin C 500 mg (*)] 500 mg PO DAILY 12/03/16 [Last Taken ] Citalopram [CeleXA 20 MG] 20 mg PO HS 12/03/16 [Last Taken 01/28/17] lamoTRIgine [LamICTAL 100 MG (*)] 100 mg PO HS 12/03/16 [Last Taken 01/28/17] Multivitamins [Multivitamin (*)] 1 each PO DAILY tab 01/15/17 [Last Taken 01/28] Dicyclomine [Bentyl 20 MG (*)] 20 mg PO DAILY PRN 01/29/17 [Last Taken 01/27/17] Ondansetron Odt [Zofran Odt 4 mg (*)] 4 mg PO DAILY PRN 01/29/17 [Last Taken 10/07] Discharge Medications: Refer to the Discharge Home Medication list for PRN reason. PICC Care - Routine: Yes (qMWF 1liter saline infusion) - Orders Services needed: Home Care (patient will need 1liter saline infusion via PICC qMWF) Home Care Face to Face: I certify that this patient was under my care and that I had the required [id number] encounter meeting the encounter requirements on the discharge day. My findings support the fact that the patient is homebound as defined in Home Care Face to Face Continued: CMS Chapter 7 Medicare Benefits Manual 30.1.1 , The condition of the patient is such that there exists a normal inability to leave home and consequently, leaving home would require a considerable and taxing effort. Diet Recommendation: no restrictions on diet (may take po - small amounts as tolerated ) Tube feeding: vivonex 65cc/hr water flush 75cc q4 Weigh Patient: qod Wound Care Instructions: drain gtube daily/prn (provide 60cc piston tip syringe and owen gravity bag please). j tube to run continuously - may not be off more than 30min once daily. ileostomy - cannulate per routine - please provide 22fr coudet with 60cc syringe to irrigate tid/prn - Labs/Radiology BMP Date: 02/05/17 (q friday) - Follow Up Care Current Providers and Referrals: NONE *PRIMARY CARE P,. [Primary Care Provider] - Richy Yao MD [Medical Doctor] -
--- NOTE | 2017-02-01 09:24 | SOAPPROG ---
SOAP Progress Note Assessment/Plan: Assessment:good night. crampy pain better with drained ileostomy and cipro/ flagyl. she is ready to go today. her fiance is present at bedside. avss. exam unchanged. we reiterated her nursing home care plan in detail. severe malnutrition - to stay on contin tube feeds (no more than 30min break once a day ) - will try to arrange for home care windshield wiper repairer to assist with management - qod weights - po as able - drain gtube daily and prn. recurrent dehydration - to receive 3x weekly IVF via home VNA. gastroparesis/SMA syndrome - po as able - will work with GI for possibly obtaining Domperidone - stop reglan as ineffective. Pouchitis - cipro and flagyl - intermittent cath - bentyl prn - no more narcotics. care plan reviewed extensively with patient, fiance, nursing staff and discharge planners. new crampy abdominal pain and stoma leakage prior to SBFT today. k 3.9 today. no other overnight issues. avss. min g tube drainage noted. comfortable at present time. ileostomy cannulated with >500cc post SBFT contents. SBFT reviewed directly with rads. improved SMA anatomy -still some mild bottle necking noted but better duodenal clearance. still persistent evidence of gastroparesis. patent gastrojejunostomy anastomosis. normal small bowel. wilman discussion with Andree regarding home tube feeds - she convincingly states that she has had her tube feeds off no more than 2 hours at any one time. she also states that she has received two deliveries from her home care company. care plan also reviewed with her surgeon in [place] this afternoon regarding possible role of pouchitis as a contributing factor to her new crampy pain and bag leakage. will plan to leave in her ileostomy catheter tonight and start cipro and flagyl. will cont tube feeds and IVF. will plan for dc home tomorrow with 3x weekly IV infusion until new plan otherwise figured out. per discussion with dietary, another tube feed option is available in the outpatient setting for her severe malnutrition that is more complete than her vivonex. she can continue po as tolerated - will unlikely tolerate much. will discuss with her usual GI MD re: Domperidon acquisition. >90 minutes working with patient and in care coordination with other md's, case packer and sealer, licensed clinical social worker. feeling less light headed and dizzy. still with occasional subincisional pain. no further nausea or vomiting. avss. dry oral mucosa, sunken pupils. abd soft. incis clean. gtube with min output in bag. other tubes secure. concerns over proper feeds at home discussed (she states that she has had 2 home care deliveries since original discharge rather than one). severe dehydration, hypokalemia/hypochloremia - better with IVF, will give additional IV potassium. PICC placed yesterday for anticipated outpatient ongoing IVF boluses at home. will try to disconnect continent ileostomy cath today. UGI study tomorrow once lytes corrected for further SMA/GJ patency assessment. unclear ultimate disposition regarding GI motility. if gastroparesis continues , may be a candidate for compassionate care domperidon. possible dc tomorrow pending results? Plan: 01/30/17 13:44 01/31/17 18:31 01/31/17 18:34 02/01/17 09:22 02/01/17 09:25 Objective: Vital Signs Temp Pulse Resp BP Pulse Ox 36.8 C 95 14 111/70 97 02/01/17 08:00 02/01/17 08:00 02/01/17 08:00 02/01/17 08:00 02/01/17 08:00 Laboratory Results 02/01/17 03:54 01/31/17 02/01/17 02/02/17 05:59 05:59 05:59 Intake Total 5316 1700 Output Total 0 Balance 5316 1700 ICD10 Worksheet Patient Problems: Problems Problem Status Onset Abdominal abscess Acute
[2017-02-01] MEDS: CIPROFLOXACIN 500 MG TAB TUBE SCH (09:42)
[2017-02-01] MEDS: metroNIDAZOLE 250 MG TAB TUBE SCH (09:42)
--- NOTE | 2017-02-01 11:17 | GDS ---
[f rep st] DISCHARGE SUMMARY REASON FOR ADMISSION: Dehydration, near-syncope, hypokalemia. 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 The patient was readmitted on this admission with ongoing concerns of severe protein calorie malnutrition, near-syncope secondary to dehydration, multiple electrolyte abnormalities including hypokalemia and hypochloremia, and ileostomy dysfunction requiring ongoing cannulation. The patient was admitted for fluid rehydration and electrolyte replacement. Her jejunal tube feeds were maintained and well- tolerated throughout at 65 cc/hour of Vivonex. A PICC line was placed for ongoing fluid resuscitation means. A new development during this hospitalization included that of crampy abdominal pain with ileostomy pouch leakage, thought secondary to pouchitis, for which she was started on Cipro and Flagyl per discussion with her continent ileostomy surgeon in [place]. She was seen in consultation by Case Management and Social Work Services. She was discharged to home on the in improved condition with replenishment of her dehydration and electrolyte abnormalities. Ongoing care plans for her will entail continuous tube feeding at all times. Multiple discussions were had with her regarding concerns of possible unregulated tube feeding holidays, which she clarified was no more than 2 hours at any one time. She was instructed that she may not be off her tube feeds for more than 30 minutes in any one day. She will continue with her 75 cc q. 4-hour water flushes. Her PICC line will be maintained with plans for home VNA to provide 3-time weekly saline challenges as well as ongoing dietary management consultation. Alternative tube feed arrangements may be possible through her home care company that may provide more complete calories than Vivonex. She will discontinue her Reglan. Further discussion will be had for obtaining domperidone to help with her persistent gastroparesis. Of note, a small bowel follow-through was completed on this hospital admission, showing improvement in her SMA anatomy with some persistent bottle necking and definite persistent evidence of gastroparesis with a widely patent gastrojejunostomy and no small bowel abnormalities. She will continue with her Celexa and lamotrigine. She will take K-Paulina packets 40 mEq once daily via her J-tube. Cipro and Flagyl will be continued for an additional 10 days for pouchitis via her J-tube as well. She will coordinate to have weekly followup visits with Dr. Yao to try and minimize further ongoing hospitalizations. Instructions were explained extensively with the patient, her fiance, nursing staff, as well as case management and social work staff in-house. /[id number]/MODL MTDD
--- NOTE | 2017-02-01 14:08 | ASMTCMCOM ---
CM Note CM Note Notes: D/w , final orders faxed, Idalia at [facility] and Leticia at [facility] notified. Pt going home w/Boyfriend back to [place]. wrote for pt to get IV fluids MWF, discussed with [facility], pt will take RX to pharmacy and home health RN will administer and provide SW if covered by insurance. [facility] will provide surveying crew stake runner to reach out to pt. Date Signed: 02/01/2017 02:07 PM Electronically Signed By:Claudia Mccurdy RN
--- NOTE | 2017-02-01 17:34 | ASDISCHSUM ---
Discharge Information Plan Status:IV ABX/Infusion Medically Cleared to Leave: Discharge Date:02/01/2017 12:01 PM D/C Disposition:Home Health Service [facility] D/C Disposition:Home, Routine, Self-Care Projected Discharge Date:02/01/2017 11:00 AM Transportation at D/C:Friend Discharge Delay Reason: Follow-Up Date:02/01/2017 11:00 AM Discharge Slot: Final Diagnosis: Placement Information Referral Type:*Home Health Care Services Referral ID:[id number] Provider Name:[facility] Address 1:[address] Address 2: City:[facility] Selection Factors: State:[place] Referral Type:Home Infusion Referral ID:[id number] Provider Name:[facility] [place] Address 1:[address] [facility] Phone Number: Address 2: Fax Number: City:[place] Selection Factors: State:[place] Patient Contact Information Contact Name:AGUILAR Relationship:Other Address: Work Phone: City: [facility] Phone: [facility] Code: Email: Financial Information Financial Class:HMO and PPO Plans Primary Plan Desc: OUT OF STATE PPO Primary Plan Number:[id number] Secondary Plan Desc:MED[place] Secondary Plan Number:[id number] Assessment Information LACE LACE Length of stay for Answers: 3 days current admission Acuity / Level of Care Answers: No. Emergency dept visits in Answers: 1 last 6 months Score: 4 Date Signed: 01/30/2017 02:30 PM Electronically Signed By:Melyssa Silva LCSW TIFFANIE CM Progress Note CM Note CM Note Notes: Pt. is a 21-year-old woman admitted with severe malnutrition and weight loss since her last admission to [facility]. Pt was discharged on 01/07/17 with home care through [facility] and enteral nutrition through [facility] - contat Leticia . After last admission [facility]. [facility]: [address], [place] [address]. [place] [facility] [place] at [facility] to get her opinion on what has been happening at home. Await return call. There seems to be some discrepency between the Pt's account of the lack of success of her feeding at home and [facility]'s attempts to regularly work w/ Pt. on a possible better nutrition source - [employer] - that can be taken by mouth or through tube feeding. Leticia at [facility] states she has good documentation about their efforts to work w/ Pt. should medical team need details. Today Pt. asked for Media Relations Manager to get a MDPOA form. Has not yet completed form today. Claudia Milner, behavioral health RN and SOLE TIER, worked w/ Pt. during previous admission. Eyad called Claudia today to ask that she see Pt. again for this admission. Await consult. Current plan: Re-up enteral feeds and home care at d/c. Date Signed: 01/30/2017 02:48 PM Electronically Signed By:Melyssa Silva LCSW [facility] CM Progress Note CM Note CM Note Notes: Today Eyad was able to eventually get in touch w/ Dr. Monaco (data collection associate) after staff at office tried to reach Dr. Yao. Eyad wanted to ask Dr. Monaco if Pt. could benefit from being added to the hospitalist service for better coordination of care. Dr. Monaco states he does not feel that is appropriate at this time. Eyad notified Dr. Monaco that Eyad had tried to contact behavioral health RN Claudia Milner for continuing care consult since she had seen Pt. last admission, but Claudia not available yesterday or today. Eyad notified Dr. Monaco that no psychiatric/behavioral health consults have been done this admission. Eyad recommends team read Claudia Milner's note from 01/09/2017 for thorough evaluation of Pt's psychiatric and psychosocial history. Eyad gave report to colleague DONNIE SHER who will be covering tomorrow. Current d/c plan: D/c with [facility] for enteral feeds. Contact Leticia . Also d/c with [facility] . RN from last d/c with [facility] was Caitlin. Date Signed: 01/31/2017 05:57 PM Electronically Signed By:Melyssa Silva LCSW [employer] Progress Note CM Note CM Note Notes: D/w , final orders faxed, Idalia at [facility] and Leticia at [facility] notified. Pt going home w/Boyfriend back to [facility]. wrote for pt to get IV fluids MWF, discussed with [facility], pt will take RX to pharmacy and home health RN will administer and provide SW if covered by insurance. [facility] will provide drupal php developer to reach out to pt. Date Signed: 02/01/2017 02:07 PM Electronically Signed By:Claudia Mccurdy RN Intervention Information
== END 2017-02-01 12:01 | disposition home health service (06) | DRG 640 ==
LOC: F3E 11:13
PROVIDERS: ADMIT Surgery; ATTEND Surgery
PROC: 02HV33Z Insertion of Infusion Device into Superior Vena Cava, Percutaneous Approach (ICD-10-PCS; principal; 2017-01-29)
DX: E86.0 Dehydration (principal); E87.6 Hypokalemia; E87.8 Other disorders of electrolyte and fluid balance, not elsewhere classified; R55 Syncope and collapse; E43 Unspecified severe protein-calorie malnutrition; Z68.1 Body mass index [BMI] 19.9 or less, adult; Z93.1 Gastrostomy status; K91.850 Pouchitis; Z93.2 Ileostomy status; K31.84 Gastroparesis; K55.1 Chronic vascular disorders of intestine; Z90.49 Acquired absence of other specified parts of digestive tract; Z23 Encounter for immunization
CPT/HCPCS: C1751; G0008; J2765

== ENCOUNTER 2017-02-02 21:03 | Inpatient (IN) | payer BC, MEDICAID ==
--- NOTE | 2017-02-02 21:39 | EDPHY ---
H & P Stated Complaint: chest pain s/p recent surgery dr yao Time Seen by Provider: 02/02/17 21:10 HPI/ROS: CHIEF COMPLAINT: Fatigue, tachycardia, near-syncope HISTORY OF PRESENT ILLNESS: The patient is a chronically ill 21 y/o female complaining of fatigue, light headedness, near-syncope, and tachycardia since this morning. She was discharged from the hospital yesterday after being admitted for dehydration, near-syncope, and hypokalemia. She has maintained her tube feeds continuously, however she has been unable to obtain fluids through her PICC line. PICC line was placed during this most previous hospital visit. Denies any upper extremity swelling or pain. She was last given IVF fluids yesterday. She does take by mouth fluids but typically develops significant nausea, vomiting, or abdominal discomfort for which she drains her stomach via her gastrostomy tube. She does report that she has had significant increase in heard G-tube output since discharge from the hospital yesterday. This morning she began to feel weaker and noticed that she began to be tachycardic. She has had hot and cold chills. Denies history of PE, but does have familial history of blood clots (after a long trip). No swelling in legs, documented fever, URI symptoms, cough, palpitations, diarrhea, urinary complaints, headache. REVIEW OF SYSTEMS: Aside from elements discussed in the HPI, a comprehensive 10-point review of systems was reviewed and is negative. PAST MEDICAL HISTORY: Intestinal pseudo-obstruction, total abdominal colectomy, continent ileostomy, progressive gastroparesis with SMA syndrome, gastrojejunostomy placement, feeding jejunostomy tube placement, PICC line SOCIAL HISTORY: Family at bedside. Prior medical records reviewed including discharge summary from Dr. Yao on 02/01. VITAL SIGNS: HR: 108, BP: 92/73, RR: 22 others reviewed by me GENERAL: Thin, chronically ill appearing, emaciated, pleasant. HEENT: Atraumatic. Eyes: No icterus, no injection. Mouth: dry mucous membranes. No erythema or lesions. Neck: supple with no adenopathy. LUNGS: Clear to auscultation anteriorly, no wheezes, rhonchi or rales. CARDIAC: Tachycardic, regular rhythm, no rubs, murmurs or gallops. ABDOMEN: Abdomen is soft, mild diffuse tenderness that is chronic, g-tube and ileostomy tube in place. No distension BACK: No CVA tenderness. EXTREMITIES: No trauma. No edema peripherally. No tenderness near PICC line. Range of motion is normal throughout. NEURO: Alert and oriented, grossly nonfocal. SKIN: Warm and dry, no rash. PSYCHIATRIC: Normal mentation, no agitation. Portions of this note were transcribed by a medical social worker. I personally performed a history, physical exam, medical decision making, and confirmed accuracy of information the transcribed note. - Personal History LMP (Females 10-55): Unknown Current Tetanus/Diphtheria Vaccine: Yes Current Tetanus Diphtheria and Acellular Pertussis (TDAP): Yes - Medical/Surgical History Hx Asthma: No Hx Chronic Respiratory Disease: No Hx Diabetes: No Hx Cardiac Disease: No Hx Renal Disease: No Hx Cirrhosis: No Hx Alcoholism: No Hx HIV/AIDS: No Hx Splenectomy or Spleen Trauma: No Other PMH: large intestine removed, BCIR 09/07 content illiostomy, intestinal seudo obstruction, j tube placed, g tube placed - Social History Smoking Status: Never smoked Constitutional: Initial Vital Signs Heart Rate 135 H 02/02/17 21:10 Respiratory Rate 22 H 02/02/17 21:10 Blood Pressure 92/73 L 02/02/17 21:10 O2 Sat (%) 100 02/02/17 21:10 O2 Delivery Mode Room Air Allergies/Adverse Reactions: milk Allergy (Verified 02/02/17 21:12) mustard Allergy (Verified 02/02/17 21:12) Home Medications: Medication Instructions Recorded Ascorbic Acid [Vitamin C 500 mg 500 mg PO DAILY 12/03/16 (*)] Citalopram [CeleXA 20 MG] 20 mg PO HS 12/03/16 lamoTRIgine [LamICTAL 100 MG (*)] 100 mg PO HS 12/03/16 Multivitamins [Multivitamin (*)] 1 each PO DAILY tab 01/15/17 Dicyclomine [Bentyl 20 MG (*)] 20 mg PO DAILY PRN 01/29/17 Ondansetron Odt [Zofran Odt 4 mg 4 mg PO DAILY PRN 01/29/17 (*)] Ciprofloxacin [Cipro] 500 mg TUBE BID@1000,2000 10 Days 02/01/17 tab Dicyclomine [Bentyl 10 MG (*)] 10 - 20 mg TUBE Q4H PRN cap 02/01/17 metroNIDAZOLE [Flagyl 250 mg (*)] 250 mg TUBE TID 10 Days tab 02/01/17 Medical Decision Making - Diagnostics EKG Interpretation: 12-LEAD EKG: Please see the full report in [facility]. My interpretation: Sinus tachycardia with a rate of 97, multiple ventricular premature complexes Imaging Results: Imaging Impressions Chest X-Ray 02/02/17 21:57 Impression: No acute intrathoracic abnormality. Imaging: Discussed imaging studies w/ call or contact centre manager Radiologist, I viewed and interpreted images myself ED Course/Re-evaluation: The patient is a chronically ill 21 y/o female presenting with tachycardia and near-syncope. On exam she has dry mucous membranes, mild diffuse tenderness that is chronic, and a g-tube and ileostomy tube in place. She does not have any tenderness near her PICC line. No swelling in legs, or upper extremity. No fever or URI symptoms. 2222: EKG interpreted as sinus tachycardia 2230: Viewed patient's laboratory results, she is hypochloremic with a anion gap of 24. 2232: Chest x-ray show no acute intrathoracic abnormalities. 2300: Patient was reexamined. She has received approximately 500 cc of normal saline. Heart rate is now the low 100 range. She reports feeling slightly better. She states that over the last 1-2 weeks, whenever she has not been taking IV fluids, her gastric output seems to significantly increase, causing dehydration, and she begins feel lightheaded and dizzy. Today's complaints including also significant shortness of breath and chest discomfort. Course discussed with Dr. Richy Yao. He will follow the patient in the hospital. Course discussed with Dr. Javon Montez. Plan for admission with continued IV fluids, evaluation for chest pain and shortness of breath, and re-evaluation the patient's significant lactic acidosis. D-dimer is elevated at 0.89. Patient's peripheral IV infiltrated following 25 cc of IV contrast. 12:00 a.m.: Patient's PICC line was cleared with a injection of alteplase. Patient returns to CT scan for CT angiogram utilizing her PICC line. Differential Diagnosis: Differential diagnoses for the patient's symptom complex was considered including but not limited to pulmonary embolism, dehydration, arrhythmias, hyponatremia, hypokalemia, electrolyte abnormalities. Consult/Admit Bed Type: Dr. Lay, [facility] surg - Data Points Laboratory Results: Laboratory Results 02/02/17 21:48 02/02/17 21:45 02/02/17 02/02/17 02/02/17 21:48 21:48 21:45 WBC 10.43 10^3/uL H 10^3/uL (3.80-9.50) RBC 5.24 10^6/uL 10^6/uL (4.18-5.33) Hgb 15.5 g/dL g/dL (12.6-16.3) Hct 43.5 % % (38.0-47.0) MCV 83.0 fL fL (81.5-99.8) MCH 29.6 pg pg (27.9-34.1) MCHC 35.6 g/dL g/dL (32.4-36.7) RDW 13.4 % % (11.5-15.2) Plt Count 511 10^3/uL H 10^3/uL (150-400) MPV 8.4 fL L fL (8.7-11.7) Neut % (Auto) 65.6 % % (39.3-74.2) Lymph % (Auto) 24.8 % % (15.0-45.0) [place] % (Auto) 8.2 % % (4.5-13.0) Eos % (Auto) 0.6 % % (0.6-7.6) Baso % (Auto) 0.4 % % (0.3-1.7) Nucleat RBC Rel Count 0.0 % % (0.0-0.2) Absolute Neuts (auto) 6.84 10^3/uL H 10^3/uL (1.70-6.50) Absolute Lymphs (auto) 2.59 10^3/uL 10^3/uL (1.00-3.00) Absolute Monos (auto) 0.86 10^3/uL H 10^3/uL (0.30-0.80) Absolute Eos (auto) 0.06 10^3/uL 10^3/uL (0.03-0.40) Absolute Basos (auto) 0.04 10^3/uL 10^3/uL (0.02-0.10) Absolute Nucleated RBC 0.00 10^3/uL 10^3/uL (0-0.01) Immature Gran % 0.4 % % (0.0-1.1) Immature Gran # 0.04 10^3/uL 10^3/uL (0.00-0.10) D-Dimer VBG Lactic Acid 3.8 mmol/L H mmol/L (0.7-2.1) Sodium Potassium Chloride Carbon Dioxide Anion Gap BUN Creatinine Estimated GFR Glucose Calcium Phosphorus Lipase TSH 1.210 uIU/mL uIU/mL (0.465-4.680) Beta HCG, Qual 02/02/17 02/02/17 02/02/17 21:45 21:45 21:45 WBC RBC Hgb Hct MCV MCH MCHC RDW Plt Count MPV Neut % (Auto) Lymph % (Auto) [place] % (Auto) Eos % (Auto) Baso % (Auto) Nucleat RBC Rel Count Absolute Neuts (auto) Absolute Lymphs (auto) Absolute Monos (auto) Absolute Eos (auto) Absolute Basos (auto) Absolute Nucleated RBC Immature Gran % Immature Gran # D-Dimer 0.87 ug/mLFEU H ug/mLFEU (0.00-0.50) VBG Lactic Acid Sodium 140 mEq/L mEq/L (134-144) Potassium 4.0 mEq/L mEq/L (3.5-5.2) Chloride 93 mEq/L L D mEq/L (97-110) Carbon Dioxide 23 mEq/l mEq/l (22-31) Anion Gap 24 mEq/L H mEq/L (8-16) BUN 23 mg/dL mg/dL (7-23) Creatinine 0.8 mg/dL D mg/dL (0.6-1.0) Estimated GFR > 60 Glucose 105 mg/dL H mg/dL (70-100) Calcium 11.1 mg/dL H D mg/dL (8.5-10.4) Phosphorus 2.5 mg/dL mg/dL (2.5-4.5) Lipase 220 IU/L IU/L (23-300) TSH Beta HCG, Qual NEGATIVE Medications Given: Alteplase, Recombinant (Cathflo Activase) 2 mg IVP PRN PRN PRN Reason: Per PICC line policy Stop: 08/01/17 23:26 Last Admin: 02/02/17 23:47 Dose: 2 mg Discontinued Medications Sodium Chloride (Ns) 1,000 mls @ 0 mls/hr IV ONCE ONE; Wide Open PRN Reason: Protocol Stop: 02/02/17 21:49 Last Admin: 02/02/17 21:51 Dose: 1,000 mls Ondansetron HCl (Zofran) 4 mg IVP EDNOW ONE Stop: 02/02/17 23:05 Last Admin: 02/02/17 23:05 Dose: 4 mg Ondansetron HCl (Zofran) 4 mg IVP EDNOW ONE Stop: 02/02/17 23:06 Last Admin: 02/02/17 23:11 Dose: Not Given Departure - Departure Disposition: [facility] Inpatient Acute Clinical Impression: Shortness of breath, Dehydration, Near syncope, Hypochloremia Condition: Fair
[2017-02-02] MEDS ORDERED: NS 1,000 ML IV ONE (21:48)
[2017-02-02 21:55] LABS: % IMMATURE GRANULYOCYTES 0.4 % (0.0-1.1); ABSOLUTE IMMATURE GRANULOCYTES 0.04 10^3/uL (0.00-0.10); ADD DIFF? NO; ADD MORPH? NO; ADD SCAN? NO; ATYPICAL LYMPHOCYTE FLAG 10 (0-99); FRAGMENT RBC FLAG 0 (0-99); HEMATOCRIT 43.5 % (38.0-47.0); HEMOGLOBIN 15.5 g/dL (12.6-16.3); LEFT SHIFT FLG 0 (0-99); LIPEMIA HEMOLYSIS FLAG 90 (0-99); MEAN CELL HEMOGLOBIN 29.6 pg (27.9-34.1); MEAN CELL HEMOGLOBIN CONCENTR. 35.6 g/dL (32.4-36.7); MEAN PLATELET VOLUME 8.4 fL (8.7-11.7); PLATELET CLUMPS FLAG 20 (0-99); PLATELET COUNT 511 10^3/uL (150-400); RED BLOOD CELL COUNT 5.24 10^6/uL (4.18-5.33); RED CELL DISTRIBUTION WIDTH 13.4 % (11.5-15.2)
[2017-02-02 22:07] LABS: ANION GAP 24 mEq/L (8-16); CALCIUM 11.1 mg/dL (8.5-10.4); CARBON DIOXIDE 23 mEq/l (22-31); CHLORIDE 93 mEq/L (97-110); CREATININE 0.8 mg/dL (0.6-1.0); GLOMERULAR FILTRATION RATE > 60; GLUCOSE 105 mg/dL (70-100); SODIUM 140 mEq/L (134-144)
--- NOTE | 2017-02-02 22:24 | CPEKG ---
Heart Rate: 97 RR Interval: 619 P-R Interval: 160 QRSD Interval: 74 QT Interval: 352 QTC Interval: 447 P [place]: 72 QRS [place]: -49 T Wave [place]: 55 EKG Severity - ABNORMAL ECG - EKG Impression: SINUS TACHYCARDIA EKG Impression: MULTIPLE VENTRICULAR PREMATURE COMPLEXES EKG Impression: PROBABLE LEFT ATRIAL ABNORMALITY EKG Impression: LEFT AXIS DEVIATION Electronically Signed By: Shen Jewell 03-Feb-2017 08:43:03
[2017-02-02] MEDS ORDERED: ONDANSETRON 4 MG/2 ML VIAL ONE (23:00)
[2017-02-02] MEDS ORDERED: ONDANSETRON 4 MG/2 ML VIAL IVP ONE ×2 (23:04→23:05)
[2017-02-02] MEDS ORDERED: IOPAMIDOL (ISOVUE 370) 100 ML BTL IV ONE (23:17)
[2017-02-02] MEDS ORDERED: ALTEPLASE 2 MG VIAL IVP PRN (23:27)
[2017-02-02] MEDS ORDERED: ONDANSETRON DISINTEGRATING 4 MG TAB PO PRN (23:53)
[2017-02-02] MEDS ORDERED: ACETAMINOPHEN 325 MG TAB PO PRN (23:53)
--- NOTE | 2017-02-03 00:10 | PDGENHP ---
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 Patient was discharged from the hospital yesterday after being treated for similar symptoms by Dr. Richy Yao. Ostomy seems to be having continued output and leading to dehydration as patient unable to tolerate significant PO. She has been compliant with continuous jejunal tube feeds of Vivonex @ 65 mL/hr and 75 cc q [address] Yao intended for patient to also receive IV fluids through a PICC placed during most recent admission at home but this had not yet been arranged. Patient began to feel fatigued, tachycardic, and near-syncopal this morning along with some chest discomfort so returned to the ED for evaluation. Once in the ED patient noted to be tachycardic, acidotic w/ hypochloremia, and w / elevated lactic acid. Her symptoms and HR improved significantly with 1L of NS. With the aid of K 40 mEq daily her Na is 140 and K 4.0. Patient is being admitted to hospital service for further care. History Information - Allergies/Home Medication List Allergies/Adverse Reactions: milk Allergy (Verified 02/02/17 21:12) mustard Allergy (Verified 02/02/17 21:12) Home Medications: Ascorbic Acid [Vitamin C 500 mg (*)] 500 mg PO DAILY 12/03/16 [Last Taken ] Citalopram [CeleXA 20 MG] 20 mg PO HS 12/03/16 [Last Taken 01/28/17] lamoTRIgine [LamICTAL 100 MG (*)] 100 mg PO HS 12/03/16 [Last Taken 01/28/17] Dicyclomine [Bentyl 20 MG (*)] 20 mg PO DAILY PRN 01/29/17 [Last Taken 01/27/17] Ondansetron Odt [Zofran Odt 4 mg (*)] 4 mg PO DAILY PRN 01/29/17 [Last Taken 10/07] I have personally reviewed and updated: family history, medical history - Past Medical History Additional medical history: Colonic pseudoobstruction s/p colectomy. SMA syndrome. Gastroparesis - Surgical History Additional surgical history: Colectomy. Ileostomy. PEJ tube - Family History Additional family history: Blood clots - Social History Smoking Status: Never smoked Alcohol Use: None Drug Use: None Review of Systems Review of Systems: ROS: 10pt was reviewed & negative except for what was stated in HPI & below Physical Exam Physical Exam: Temp Pulse Resp BP Pulse Ox 96 18 92/73 L 96 02/02/17 22:33 02/02/17 22:33 02/02/17 21:10 02/02/17 22:33 Lab Data & Imaging Review 02/02/17 21:48 02/02/17 21:45 WBC 10.43 10^3/uL (3.80-9.50) H 02/02/17 21:48 RBC 5.24 10^6/uL (4.18-5.33) 02/02/17 21:48 Hgb 15.5 g/dL (12.6-16.3) 02/02/17 21:48 Hct 43.5 % (38.0-47.0) 02/02/17 21:48 MCV 83.0 fL (81.5-99.8) 02/02/17 21:48 MCH 29.6 pg (27.9-34.1) 02/02/17 21:48 MCHC 35.6 g/dL (32.4-36.7) 02/02/17 21:48 RDW 13.4 % (11.5-15.2) 02/02/17 21:48 Plt Count 511 10^3/uL (150-400) H 02/02/17 21:48 MPV 8.4 fL (8.7-11.7) L 02/02/17 21:48 Neut % (Auto) 65.6 % (39.3-74.2) 02/02/17 21:48 Lymph % (Auto) 24.8 % (15.0-45.0) 02/02/17 21:48 [place] % (Auto) 8.2 % (4.5-13.0) 02/02/17 21:48 Eos % (Auto) 0.6 % (0.6-7.6) 02/02/17 21:48 Baso % (Auto) 0.4 % (0.3-1.7) 02/02/17 21:48 Nucleat RBC Rel Count 0.0 % (0.0-0.2) 02/02/17 21:48 Absolute Neuts (auto) 6.84 10^3/uL (1.70-6.50) H 02/02/17 21:48 Absolute Lymphs (auto) 2.59 10^3/uL (1.00-3.00) 02/02/17 21:48 Absolute Monos (auto) 0.86 10^3/uL (0.30-0.80) H 02/02/17 21:48 Absolute Eos (auto) 0.06 10^3/uL (0.03-0.40) 02/02/17 21:48 Absolute Basos (auto) 0.04 10^3/uL (0.02-0.10) 02/02/17 21:48 Absolute Nucleated RBC 0.00 10^3/uL (0-0.01) 02/02/17 21:48 Immature Gran % 0.4 % (0.0-1.1) 02/02/17 21:48 Immature Gran # 0.04 10^3/uL (0.00-0.10) 02/02/17 21:48 D-Dimer 0.87 ug/mLFEU (0.00-0.50) H 02/02/17 21:45 VBG Lactic Acid 3.8 mmol/L (0.7-2.1) H 02/02/17 21:48 Sodium 140 mEq/L (134-144) 02/02/17 21:45 Potassium 4.0 mEq/L (3.5-5.2) 02/02/17 21:45 Chloride 93 mEq/L (97-110) L D 02/02/17 21:45 Carbon Dioxide 23 mEq/l (22-31) 02/02/17 21:45 Anion Gap 24 mEq/L (8-16) H 02/02/17 21:45 BUN 23 mg/dL (7-23) 02/02/17 21:45 Creatinine 0.8 mg/dL (0.6-1.0) D 02/02/17 21:45 Estimated GFR > 60 02/02/17 21:45 Glucose 105 mg/dL (70-100) H 02/02/17 21:45 Calcium 11.1 mg/dL (8.5-10.4) H D 02/02/17 21:45 Phosphorus 2.5 mg/dL (2.5-4.5) 02/02/17 21:45 Lipase 220 IU/L (23-300) 02/02/17 21:45 TSH 1.210 uIU/mL (0.465-4.680) 02/02/17 21:45 Beta HCG, Qual NEGATIVE 02/02/17 21:45 Visualized and Interpreted EKG results: Yes EKG additional interpertation: Sinus tach w/ PVCs Assessment & Plan Assessment: 21 yo F w/ complicated PMHx including 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 Plan: 1. Recurrent dehydration - Suspect related to continued ostomy output, low PO intake, and lack of IV fluids. Lactic acid 3.8 and tachycardic on admission, improving with IVF. - NS @ 100 continuously for now - Monitor BMP, Mg, Ph and replete PRN 2. Near syncope, elevated D-dimer - May be related to dehydration, but noting patient had PICC line placed a few days ago and has family hx of VTE, need to rule out PE. - CTA chest to rule out PE 3. Hx of colonic pseudoobstruction s/p colectomy c/b SMA syndrome - Well known to Dr. Yao. - Surgical consult - Continue TF Vivonex @ 65 mL/hr and 75 cc q 4 hr flushes. - Dietary consult 4. AGMA - Driven mostly by hypochloremia, which I suspect is related to GI losses. Additionally some contribution from lactic acidosis as well. - IVF, Monitor BMP FEN - Vivonex @ 65 mL/hr and 75 cc q 4 hr flushes. Ppx - Low risk Code - Full Dispo - Admit to observation status
[2017-02-03 00:45] LABS: BASE EXCESS 0.4 mEq/L (-2.5-2.5); BICARBONATE 23 mEq/L (22-26); MEASURED OXYGEN SATURATION 97 % (92-95); PCO2 29 mmHg (34-38); PO2 89 mmHg (65-75); TCO2 24 mEq/L (23-27)
[2017-02-03] MEDS: NS 1,000 ML IV SCH ×3 (02:28→22:36)
[2017-02-03] MEDS: ONDANSETRON 4 MG/2 ML VIAL IVP PRN ×3 (03:41→21:39)
[2017-02-03] MEDS: ACETAMINOPHEN 650 MG/20.3 ML UDCUP PO PRN ×2 (03:42→10:23)
[2017-02-03] MEDS: DICYCLOMINE 10 MG CAP TUBE PRN ×2 (03:45→21:40)
[2017-02-03 04:43] LABS: % IMMATURE GRANULYOCYTES 0.5 % (0.0-1.1); ABSOLUTE IMMATURE GRANULOCYTES 0.06 10^3/uL (0.00-0.10); ADD DIFF? NO; ADD MORPH? NO; ADD SCAN? NO; ATYPICAL LYMPHOCYTE FLAG 10 (0-99); FRAGMENT RBC FLAG 60 (0-99); HEMOGLOBIN 12.7 g/dL (12.6-16.3); LEFT SHIFT FLG 0 (0-99); LIPEMIA HEMOLYSIS FLAG 90 (0-99); MEAN CELL HEMOGLOBIN 29.3 pg (27.9-34.1); MEAN CELL HEMOGLOBIN CONCENTR. 35.3 g/dL (32.4-36.7); MEAN CELL VOLUME 83.1 fL (81.5-99.8); PLATELET CLUMPS FLAG 10 (0-99); PLATELET COUNT 487 10^3/uL (150-400); RED BLOOD CELL COUNT 4.33 10^6/uL (4.18-5.33); RED CELL DISTRIBUTION WIDTH 13.5 % (11.5-15.2)
[2017-02-03 04:56] LABS: ANION GAP 15 mEq/L (8-16); CALCIUM 9.6 mg/dL (8.5-10.4); CARBON DIOXIDE 25 mEq/l (22-31); CHLORIDE 100 mEq/L (97-110); CREATININE 0.6 mg/dL (0.6-1.0); GLOMERULAR FILTRATION RATE > 60; GLUCOSE 100 mg/dL (70-100); POTASSIUM 3.4 mEq/L (3.5-5.2); SODIUM 140 mEq/L (134-144)
[2017-02-03] MEDS ORDERED: PANTOPRAZOLE SODIUM 40 MG VIAL IVP SCH (09:00)
[2017-02-03] MEDS ORDERED: ONDANSETRON DISINTEGRATING 4 MG TAB PO PRN (09:53)
[2017-02-03] MEDS: CIPROFLOXACIN 500 MG TAB TUBE SCH ×2 (10:23→21:40)
--- NOTE | 2017-02-03 10:33 | ASMTCASEMG ---
Living Arrangements What is your living Answers: With Other (Not Family) arrangement? Who do you live with? Type Of Residence What kind of residence do Answers: Unknown you live in? 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 She was admitted for recurrent deydration and elevated D-dimer. 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 Patient needs a surgical and dietary consult. C/M needs not clear at this time. CM will follow. Date Signed: 02/03/2017 10:33 AM Electronically Signed By:Jennifer Hernandez LCSW
--- NOTE | 2017-02-03 13:44 | SOAPPROG ---
MARIYA Progress Note Assessment/Plan: Assessment:pt re-admitted last mike after disch Friday. complaints of lightheaded, palpitations and chest discomfort with positional changes and intermittent cramps. RLQ cramps/pouchitis concerns better. high gastric residuals since discharge as well (minimal while in hospital). avss. comfortable. abd soft. incis clean. drains all secure. receiving 65cc/hr tube feed (which used to be 30-35cal/kg/day but now closer to 40 given her generalized weight loss). i am suspecting that her most recent constellation of symptoms may be secondary to either dumping syndrome (especially in light of her recent gastrojejunostomy and somewhat improved SMA emptying pattern) vs possible gastric hypersecretion. her gastroparesis does not help in sorting this out entirely. will initiate PPI therapy and try slowing down her tube feed formula and water flushes (she is getting IVF as a supplement here and will be continuing at home). will also try adding fiber to tube feed - discussed with product delivery specialist. will review with GI possibility of domperidone. gastric pacemaker option generally not very helpful. last resort if gastroparesis fails to resolve would be gastrectomy. all above discussed in detail with patient and fiance and product delivery specialist. Plan: 02/03/17 13:37 Objective: Vital Signs Temp Pulse Resp BP Pulse Ox 36.3 C 98 20 104/65 99 02/03/17 11:30 02/03/17 11:30 02/03/17 11:30 02/03/17 11:30 02/03/17 11:30 Laboratory Results 02/03/17 04:24 02/03/17 04:24 02/02/17 02/03/17 02/04/17 05:59 05:59 05:59 Intake Total 1000 Output Total 360 Balance 640 ICD10 Worksheet Patient Problems: Problems Problem Status Onset Dehydration Acute Hypochloremia Acute Near syncope Acute Shortness of breath Acute Abdominal abscess Acute
--- NOTE | 2017-02-03 14:17 | HOSPPROG ---
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 1st encounter, chart reviewed. Discussed with Dr. Leonard Plan: 1. Recurrent dehydration - - Suspect related to continued ostomy output, low PO intake, and lack of IV fluids. Lactic acid 3.8 and tachycardic on admission, improving with IVF. - NS @ 100 continuously for now - Monitor BMP, Mg, Ph and replete PRN -GI consult, appreciate Dr. Yao consult 2. Near syncope, elevated D-dimer - - CTA chest to negative for PE 3. Hx of colonic pseudoobstruction s/p colectomy c/b SMA syndrome - Well known to Dr. Yao. - Surgical consult - Continue TF, fiber - Dietary consult 4. AGMA - Driven mostly by hypochloremia, which I suspect is related to GI losses. Additionally some contribution from lactic acidosis as well. - IVF, Monitor BMP FEN - Vivonex @ 65 mL/hr and 75 cc q 4 hr flushes. Ppx - Low risk Code - Full Dispo -changed to inpatient status Patient requires further evaluation in the hospital setting Unable to manage condition at home Await GI consult Subjective: Still feels terrible. Very weak and lightheaded. Unable to get out of bed without feeling faint. Significant ostomy output reported. Objective: Vital Signs Temp Pulse Resp BP Pulse Ox 36.3 C 98 20 104/65 99 02/03/17 11:30 02/03/17 11:30 02/03/17 11:30 02/03/17 11:30 02/03/17 11:30 Laboratory Results 02/03/17 04:24 02/03/17 04:24 02/02/17 02/03/17 02/04/17 05:59 05:59 05:59 Intake Total 1000 Output Total 360 Balance 640 - Physical Exam Constitutional: not in pain, chronically ill appearing, uncomfortable Eyes: PERRL, anicteric sclera, EOMI Ears, Nose, Mouth, Throat: moist mucous membranes, hearing normal, ears appear normal Cardiovascular: regular rate and rhythym, No JVD, No edema Respiratory: no respiratory distress, no rales or rhonchi, reduced air movement Gastrointestinal: tenderness, other (Ostomy), No ascites, No guarding Skin: warm, normal color, No erythema Musculoskeletal: normal joint ROM, no joint effusions, generalized weakness Neurologic: AAOx3 Psychiatric: not anxious, not encephalopathic, thought process linear ICD10 Worksheet Patient Problems: Problems Problem Status Onset Abdominal abscess Acute Shortness of breath Acute Dehydration Acute Near syncope Acute Hypochloremia Acute
--- NOTE | 2017-02-03 15:07 | PDMN ---
Medical Necessity Medical necessity: [id number] ongoing need for IV fluids in complex pt recently DC with minimal PO intake and continued ostomy output. further tx needed as unable to manage condition at home. GI consult pend.
--- NOTE | 2017-02-03 15:25 | ASMTCMCOM ---
CM Note CM Note Notes: Spoke with Anna from [facility] in [facility]. They have patient open for services. Confirmed patient is in the hospital with us. Anna would like notice of when patient will be d/c'ed as she is concerned about a nurse visiting in 24 hours vs. 48. Please call Anna at [phone] when d/c needs and/or plan is clear. CM will follow. Date Signed: 02/03/2017 03:24 PM Electronically Signed By:Jennifer Hernandez LCSW
[2017-02-03] MEDS: metroNIDAZOLE 250 MG TAB TUBE SCH ×2 (16:54→21:39)
[2017-02-03] MEDS: PANTOPRAZOLE SODIUM 40 MG VIAL IVP SCH (21:39)
[2017-02-03] MEDS: lamoTRIgine 100 MG TAB TUBE SCH (21:40)
[2017-02-03] MEDS: CITALOPRAM 20 MG TAB TUBE SCH (21:40)
[2017-02-04] MEDS: NS 1,000 ML IV SCH (08:40)
[2017-02-04] MEDS: metroNIDAZOLE 250 MG TAB TUBE SCH ×3 (08:41→21:15)
[2017-02-04] MEDS: PANTOPRAZOLE SODIUM 40 MG VIAL IVP SCH ×2 (08:41→21:15)
[2017-02-04] MEDS: ASCORBIC ACID 500 MG TAB TUBE SCH (08:41)
[2017-02-04] MEDS ORDERED: PROTOCOL POTASSIUM 1 DOSE MISC PRN (10:20)
[2017-02-04] MEDS ORDERED: PROTOCOL K PHOSPHATE 1 DOSE IV PRN (10:20)
[2017-02-04] MEDS ORDERED: PROTOCOL MAGNESIUM 1 DOSE IV PRN (10:20)
--- NOTE | 2017-02-04 10:20 | SOAPPROG ---
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 1st encounter, chart reviewed. Discussed with Dr. Yao and Dr Duncan Plan: 1. Recurrent dehydration - - Suspect related to continued ostomy output, low PO intake, and lack of IV fluids. Lactic acid 3.8 and tachycardic on admission, improving with IVF. - NS @ 100 continuously for now - Monitor BMP, Mg, Ph and replete PRN -GI consult done, appreciate Dr Duncan's assistance, revwd care plan with Clau Duncan and Maximilian, discussed consideration of TPN- neither think needed currently 2. Near syncope, elevated D-dimer - CTA chest to negative for PE 3. 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 Yao. - Continue TF, fiber - Dietary consult, diff TF formula recommended 4. AGMA - - IVF, Monitor BMP 5. severe malnutrition per AND/ASPEN guidelines -brace maker consult revwd, see above FEN - Vivonex @ 65 mL/hr and 75 cc q 4 hr flushes. Ppx - Low risk, ambulation Code - Full Dispo -inpatient status Subjective: Very tired. Fiance in room. Currently living in [facility], but care here bc was a [employer] student/living in [place] (not in school currently). Objective: Vital Signs Temp Pulse Resp BP Pulse Ox 97.9 F 64 16 92/57 L 99 02/04/17 08:00 02/04/17 08:00 02/04/17 08:00 02/04/17 08:00 02/04/17 08:00 02/02/17 02/03/17 02/04/17 11:59 11:59 11:59 Intake Total 2852 Output Total 1550 Balance 1302 Physical Exam - Physical Exam General Appearance: alert, no apparent distress, thin Respiratory: chest non-tender, lungs clear, normal breath sounds Cardiac/Chest: normal peripheral pulses, regular rate, rhythm Abdomen: distended Neuro/Psych: no motor/sensory deficits, alert, normal mood/affect ICD10 Worksheet Patient Problems: Problems Problem Status Onset Dehydration Acute Hypochloremia Acute Near syncope Acute Shortness of breath Acute Abdominal abscess Acute
[2017-02-04] MEDS: CIPROFLOXACIN 500 MG TAB TUBE SCH ×2 (10:31→21:15)
[2017-02-04 13:26] LABS: MAGNESIUM 1.7 mg/dL (1.6-2.3); POTASSIUM 3.8 mEq/L (3.5-5.2)
--- NOTE | 2017-02-04 14:40 | ASMTCMCOM ---
CM Note CM Note Notes: Met with patient re: Dr. Webb's concern patient have a PCP. Patient agreed she needs a family dr. Scheduled patient with Dr. [facility] of [facility] on 02/17/17 At 12:00 noon. ([phone]). Patient was given an appointment card and confirmed this appointment will work with her schedule. Leticia Mejia from [facility] came to visit patient today and confirms they have been doing all her food delivery. Leticia's number is [phone]. [facility] is taking care of patient's nursing needs. (Anna : [phone]). Patient is satisfied with services she is getting from both agencies. Patient has left for this semester and will be living with her fiance and his family in [facility]. Someone is usually always available/home in this living arrangement. Patient's mother was at her bedside today. CM will follow. Date Signed: 02/04/2017 02:40 PM Electronically Signed By:Jennifer Hernandez LCSW
[2017-02-04] MEDS ORDERED: LORazepam 1 MG TAB TUBE PRN (15:03)
--- NOTE | 2017-02-04 15:03 | SOAPPROG ---
SOAP Progress Note Assessment/Plan: Assessment:no overnight concerns. tube feed decreased to 65cc/hr. no ileostomy concerns. needed to vent gtube once last mike for 800cc. unable to sleep last mike (or last 4 evenings). abd soft. exam unchanged. gastroparesis , query dumping physiology. care plan discussed at length with hospitalist, GI , patient and fiance. planning to switch tube feeds today. GI working on domperidone and outpatient assessment with one of their motility partners. continue PPI. continued supportive care. needs to optimize nutritional status before being able to make any determinations regarding senior living prognosis. will likely need ongoing IVF at home intermittently. will remove ileostomy catheter today. vent gtube prn. pt re-admitted last mike after disch Friday. complaints of lightheaded, palpitations and chest discomfort with positional changes and intermittent cramps. RLQ cramps/pouchitis concerns better. high gastric residuals since discharge as well (minimal while in hospital). avss. comfortable. abd soft. incis clean. drains all secure. receiving 65cc/hr tube feed (which used to be 30 -35cal/kg/day but now closer to 40 given her generalized weight loss). i am suspecting that her most recent constellation of symptoms may be secondary to either dumping syndrome (especially in light of her recent gastrojejunostomy and somewhat improved SMA emptying pattern) vs possible gastric hypersecretion. her gastroparesis does not help in sorting this out entirely. will initiate PPI therapy and try slowing down her tube feed formula and water flushes (she is getting IVF as a supplement here and will be continuing at home). will also try adding fiber to tube feed - discussed with industrial garage servicer. will review with GI possibility of domperidone. gastric pacemaker option generally not very helpful. last resort if gastroparesis fails to resolve would be gastrectomy. all above discussed in detail with patient and fiance and industrial garage servicer. Plan: 02/03/17 13:37 02/04/17 14:59 Objective: Vital Signs Temp Pulse Resp BP Pulse Ox 36.6 C 72 16 102/64 94 02/04/17 08:00 02/04/17 11:14 02/04/17 11:14 02/04/17 11:14 02/04/17 11:14 Laboratory Results 02/04/17 12:58 02/03/17 02/04/17 02/05/17 05:59 05:59 05:59 Intake Total 2852 Output Total 800 1425 Balance 2051 ICD10 Worksheet Patient Problems: Problems Problem Status Onset Dehydration Acute Hypochloremia Acute Near syncope Acute Shortness of breath Acute Abdominal abscess Acute
[2017-02-04] MEDS ORDERED: MAGNESIUM SULF 1 GM/DEXTROSE 100 ML IV ONE (15:39)
[2017-02-04] MEDS ORDERED: POTASSIUM Cl (KCl) 50 ML IV ONE (15:39)
--- NOTE | 2017-02-04 15:42 | GCON ---
[f rep st] CONSULTATION DATE OF CONSULTATION: 02/04/2017 REQUESTING PHYSICIAN: Dr. Curry REASON FOR CONSULTATION: Gastroparesis, dehydration. HISTORY OF PRESENTING ILLNESS: Thank you very kindly for asking me to evaluate this patient in consu ltation for gastroparesis. I have met her on a previous admission in December, at which point she was having difficulties with gastroparesis and had a gastrostomy tube placed. We had placed a jejunal t ube through the G-tube and clipped it into the 2nd portion of the duodenum, but this has been ineffec tive at resolving her ability to maintain hydrated and nourished. She has a very complicated dysmotility syndrome which was originally treated in [place]. At a young age, she was found to have severe colonic inertia with colonic distention, with an absence of neurons in the colon specimens that were sampled, and ultimately this led to a surgical colectomy. L baudilior, she went to [place] and had a continent ileostomy created. On her last admission in [facility], she was having difficulty with mucous plugging of the ostomy. This has now been resolved and she has not had any problems at home with the ostomy. Her principal difficulties are more with what soun ds like, the stomach. She reports having close to 800 mL of bilious fluid that empties out of her G- tube when she opens it to vent it a few times a day. It seems that the loss of this large volume of fluid has been resulting in dizziness, dehydration and she was admitted for hypovolemia. 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 The upper GI series s he had recently on this admission, however, did not confirm that finding. She does have a very J-sha ped stomach with an enlarged dependent portion which does not drain well with the enteric contrast. A surgical gastrojejunostomy was created in December by Dr. Yao in an effort to help resolve any possi bilities of the SMA syndrome causing obstruction and to help better drain the stomach. She had [facility] upper GI series on this admission which revealed proper G-tube placement, normal gastrojejunostomy anatomy with prompt emptying out the gastro-J; however, there was enteric contrast that pooled in th e dependent portion of the stomach that is not drained surgically. The duodenal sweep and upper duod enal loops were normal without evidence of SMA syndrome. Contrast was followed all the way down to t he continent ileostomy, which seemed to be normal in appearance and draining properly with contrast. The patient has been tried on Reglan, erythromycin and tegaserod in the past, all without clinical b enefit. She has not been on domperidone as a compassionate use, nor cisapride as these are not curre ntly immediately available in the [place] I am asked to assist with further evaluation and management. PAST MEDICAL AND SURGICAL HISTORY: 1. Significant for gastroparesis, thought to be idiopathic. 2. Colonic inertia with a history of total colectomy. 3. A continent ileostomy placement. 4. Surgical gastrojejunostomy placement. 5. 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 6. Repetitive episodes of dehydration. 7. Surgically placed jejunal feeding tube. 8. Endoscopically placed gastrostomy with initial attempts at PEG-J tube placement, now revised to a venting gastrostomy only. 9. Malnutrition. 10. Depression. 11. IUD placement. ALLERGIES: Dietary only, to milk and mustard. No medication allergies. HOME MEDICATIONS: Include vitamin C, Celexa, Lamictal, Bentyl, Zofran. FAMILY HISTORY: Negative for motility disturbances, but there is a hypercoagulable history with a hi story of clotting disorder. SOCIAL HISTORY: No tobacco, no alcohol. No substance abuse. The patient has a supportive [facility] other and her mom has been intently involved with her care. REVIEW OF SYSTEMS: CONSTITUTIONAL: Malaise, weakness. Denies fever, chills, or night sweats. HEEN T: No headache. No throat pain. No difficulty swallowing. PULMONARY: No cough or shortness of br eath. CARDIOVASCULAR: No palpitations or chest pain. GI: There is minimal tenderness around her l eft lower quadrant J-tube site, but she says this has been working well. She vents the G-tube and re ports having at least a liter of fluid out a day. The ileal conduit has been working normally, and s he cannulates this without difficulties. She is not reporting an increased conduit output during the day, and generally empties it once or twice a day. There has been some generalized abdominal pain m ostly around the tube insertion sites but no distention. She does have periodic vomiting of fluid if she does not open the G-tube to vent. RHEUMATOLOGIC: No joint pain. DERMATOLOGIC: No rash or jau ndice. EXTREMITIES: She reports having a PICC line in the right arm that was placed on last admissi on to help with home IV fluids. NEUROLOGIC: Depression, anxiety, some insomnia. She is hopeful devin t she can improve her quality of life. GENITOURINARY: No dysuria, flank pain or hematuria. GYNECOL OGIC: She has an intrauterine device. No gynecologic symptoms such as discharge or bleeding. PHYSICAL EXAM: VITAL SIGNS: Blood pressure 102/64, pulse 72, respirations are 16, oxygenation is 94 % on room air. Temperature 36.6. GENERAL: Thin female, in no acute distress, somewhat chronically ill-appearing. HEENT: Neck is supple. No jugular venous distention. Oropharynx is clear. Mucous membranes are moist. Sclerae are anicteric. PULMONARY: Clear to auscultation bilaterally. CARDIOV ASCULAR: Regular rate and rhythm without murmur, rub or gallop. GI: The abdomen has a G-tube in th e left middle quadrant, a J-tube in the left lower quadrant. There is a continent ileostomy in the r ight lower quadrant that is covered with a dressing. The abdomen is mildly tender to palpation aroun d the jejunal feeding tube and a little bit around the G tube. There is no distention. Bowel sounds are hypoactive. No succussion splash. No ascites. No rebound or guarding. MUSCULOSKELETAL: Norm al gait and station without joint deformity, swelling or warmth. No clubbing, no cyanosis. No long r erythema. DERMATOLOGIC: Without hives, rash or jaundice. NEUROLOGIC: Alert to person, place, an d time. Cranial nerves normal. Motor nonfocal. DATABASE: Includes the following: LABORATORIES: White count of 10.9, hematocrit 36, platelets are 47. Sodium 140, potassium 3.4, chloride 100, bicarbonate 25, BUN 18, creatinine 0.8, glucose 100, ph osphorus 3.8, magnesium 2.0. TSH is 1.2. Lipase 220. Beta HCG is negative. IMAGING: There is an upper GI and small-bowel series January 31, 2017, the data includes the follow ing: There are surgical clips in the medial left upper quadrant. A percutaneous gastrostomy is plac ed properly. Surgical clips in the right lower quadrant. A T-shaped intrauterine device is seen. S tomach is partially distended but not dilated. There is no abnormal small bowel dilation. The colon is absent. Administration of thin barium through the PEG shows filling of the gastric body and fund us. There is a transient episode of reflux. There is preferential emptying of the contrast through the gastrojejunostomy limb, which appears normal. Placing the patient in the right posterior oblique and right lateral decubitus positions causes emptying of the stomach expeditiously into the [place] uodenal sweep. There is normal positioning of the duodenum without significant narrowing. Contrast is retained in the dependent portions of the stomach at 2 hours. Contrast does ultimately make its w ay to the ileostomy pouch. There is drainage from the pouch. The loops of jejunum and ilium are non dilated. IMPRESSION: 1. Dehydration. 2. Hypovolemic hypokalemia. 3. Gastroparesis. 4. History of colonic inertia with surgical resection and a continent ileostomy creation. 5. Nausea with vomiting that occurs principally when she fails to empty the gastrostomy tube. RECOMMENDATIONS: 1. This is a very difficult clinical case. I do believe the predominant reason she gets dehydrated is due to what sounds like, clinically, a large volume of gastric secretions which she empties daily. Losing a liter of gastric fluid would result in hypokalemia and dehydration. The plan on last admi ssion was to replace these fluids through her PICC line, but this never got set up and she was dizzy and hypotensive and dehydrated on readmission. 2. She is using the J tube fine for nutrition and I think over time, this will help. 3. It is difficult to imagine medically how we could help in getting the stomach to empty better. T he gastrojejunostomy is helping to a degree but I think the dependent portions of the stomach are sierra ling to empty well, and this is what likely comes out the G-tube. 4. I would like her to lie in the right posterior and right lateral positions more routinely prior t o trying to empty the G-tube for venting to see if this fluid could move into the duodenum and be enrrique bsorbed to help her. 5. In the interim, she will continue J-tube feeds throughout the day and evening, and replace what s he loses volume doherty from the G-tube which she will vent intermittently, using the PICC line. 6. She may be a candidate for domperidone but I will need to investigate to see whether we can get t his as an outpatient, but there is no inpatient management for this currently. 7. She may also be a candidate for a gastric pacemaker placement to see if we can get better emptyin g of the dependent portions of the stomach. I will need to investigate locally whether there are any [facility] who are placing gastric pacemakers. 8. She may benefit from a formal consultation with a [facility] of Excellence, such as the [facility] or the [facility], to see if there are better choices for her. I am a little bit uncom fortable with the recommendation for a gastrectomy to treat her gastroparesis, as she has already had colectomy and I am not certain that this would resolve much of her chronic issues. 9. For now, I would recommend jejunal feeds, replacing losses through the PICC line, and mobilizatio n to home when she is ready. I do not feel other imaging will be needed. 10. I will discuss this with Dr. Yao and the hospitalist team. 11. I will follow up with her in clinic to see if we can get domperidone, and possibly establish a r eferral to a Motility Center. /[id number]/MODL
[2017-02-04] MEDS ORDERED: POTASSIUM CL 20 MEQ/15 ML UDCUP TUBE ONE (16:00)
[2017-02-04] MEDS ORDERED: KETOROLAC 30 MG/1 ML SDV IVP ONE (19:45)
[2017-02-04] MEDS: CITALOPRAM 20 MG TAB TUBE SCH (21:15)
[2017-02-04] MEDS: lamoTRIgine 100 MG TAB TUBE SCH (21:15)
[2017-02-05 06:02] LABS: ANION GAP 10 mEq/L (8-16); CALCIUM 8.3 mg/dL (8.5-10.4); CARBON DIOXIDE 19 mEq/l (22-31); CHLORIDE 111 mEq/L (97-110); CREATININE 0.5 mg/dL (0.6-1.0); GLOMERULAR FILTRATION RATE > 60; GLUCOSE 101 mg/dL (70-100); MAGNESIUM 1.8 mg/dL (1.6-2.3); SODIUM 140 mEq/L (134-144)
[2017-02-05] MEDS ORDERED: MAGNESIUM SULF 1 GM/DEXTROSE 100 ML IV ONE (07:23)
[2017-02-05] MEDS: CIPROFLOXACIN 500 MG TAB TUBE SCH ×2 (08:18→20:33)
[2017-02-05] MEDS: metroNIDAZOLE 250 MG TAB TUBE SCH ×3 (08:19→20:34)
[2017-02-05] MEDS: PANTOPRAZOLE SODIUM 40 MG VIAL IVP SCH ×2 (08:19→20:34)
[2017-02-05] MEDS: ASCORBIC ACID 500 MG TAB TUBE SCH (08:19)
[2017-02-05] MEDS: KETOROLAC 15 MG/1 ML SDV IVP PRN ×3 (08:19→21:47)
--- NOTE | 2017-02-05 11:45 | SOAPPROG ---
SOAP Progress Note Assessment/Plan: 21 yo F w/ complicated PMHx including colonic pseudo-obstruction and chronic motility issues, s/p total colectomy, continent ileostomy, and complicated by gastroparesis and SMA syndrome presents with recurrent dehydration and elevated D-dimer. Plan: 1. Recurrent symptomatic dehydration - improving - Suspect related to continued ostomy output, low PO intake, and lack of IV fluids. IVF stopped by Dr Yao - Monitor BMP, Mg, Ph and replete PRN -appreciate Dr Leonard's assistance, revwd care plan with Dr Yao -hopeful dc in AM 2. Near syncope, elevated D-dimer - CTA chest to negative for PE 3. 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 Yao. - Continue TF, fiber - Dietary consult done, diff TF formula recvd, on lower volumes also 4. AGMA - - check labs in AM 5. severe malnutrition per AND/ASPEN guidelines -investigator narcotics consult revwd, see above Ppx - Low risk, ambulation Code - Full Dispo -inpatient status Care management asked to assist her with setting up a PCP Subjective: Says feels better today. Has been able to ambulate, denies dizziness. In room now having a [employer] drink. Objective: Vital Signs Temp Pulse Resp BP Pulse Ox 98.7 F 88 16 90/53 L 98 02/05/17 07:36 02/05/17 07:36 02/05/17 07:36 02/05/17 07:36 02/05/17 07:36 Laboratory Results 02/05/17 05:20 02/03/17 02/04/17 02/05/17 11:59 11:59 11:59 Intake Total 2852 2070 Output Total 1550 675 Balance 1302 1395 Physical Exam - Physical Exam General Appearance: alert, no apparent distress, thin Respiratory: chest non-tender, lungs clear, normal breath sounds Cardiac/Chest: normal peripheral pulses, regular rate, rhythm, No edema Abdomen: soft, other (mild ttp throughout), No organomegaly, No distended, No guarding, No rebound Skin: normal color, warm/dry Neuro/Psych: alert, normal mood/affect ICD10 Worksheet Patient Problems: Problems Problem Status Onset Dehydration Acute Hypochloremia Acute Near syncope Acute Shortness of breath Acute Abdominal abscess Acute
--- NOTE | 2017-02-05 12:02 | SOAPPROG ---
SOAP Progress Note Assessment/Plan: Assessment: 1. Gastroparesis-idiopathic 2. Colonic dysmotility s/p total colectomy with Continent ileostomy 3. N/V and dehydration Plan: 1. Ok to d/c home today with J-tube feeding 2. Supplemental PICC line fluids to match G-tube output 3. Patient instructed on positional emptying of stomach (RPO and Right lateral) for 30 min TID to help with improving gastric output 4. Outpatient f/u to discuss domperidone, gastric pacemaking and motility center referral to discuss further options. 5. Will sign off. 6. Call if questions arise. I will arrange for GI f/u in the week after discharge. 02/05/17 11:58 Subjective: CC: N/V Gastroparesis Doing better. No further N/V. Tolerating J-tube feeding. Continent ileostomy working well. Objective: Vital Signs Temp Pulse Resp BP Pulse Ox 36.5 C 90 18 99/61 L 98 02/05/17 11:54 02/05/17 11:54 02/05/17 11:54 02/05/17 11:54 02/05/17 11:54 Laboratory Results 02/05/17 05:20 02/04/17 02/05/17 02/06/17 05:59 05:59 05:59 Intake Total 2852 2070 Output Total 800 1425 Balance 2052 645 Physical Exam - Physical Exam General Appearance: no apparent distress, thin EENT: pharynx normal Neck: supple Respiratory: lungs clear Cardiac/Chest: regular rate, rhythm Abdomen: normal bowel sounds, non-tender, soft, No pulsatile mass, No distended , No guarding, No rebound, No ascites ICD10 Worksheet Patient Problems: Problems Problem Status Onset Dehydration Acute Hypochloremia Acute Near syncope Acute Shortness of breath Acute Abdominal abscess Acute
--- NOTE | 2017-02-05 13:04 | SOAPPROG ---
SOAP Progress Note Assessment/Plan: Assessment:difficulty emptying ileostomy after cath removal last night with associate right hip/groin pain - improved with recannulation and toradol. gtube drainage less. has not walked much. less dizziness. avss. comfortable. abd soft, nontender. drains secure. ileostomy thin succus. decreased sensation along right ASIS toward pubis. 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 will stop continuous IVF - will need intermittent fluid challenges at home as previously prescribed. switch tube feed formula and continue PPI - clinical dumping physiology - ok to have po as tolerated. will complete cipro/flagyl end of week for pouchitis. appreciate GI assist for possible domperidone trial - cautious optimism of any benefit here - suspect her gastroparesis will continue to stutter. unable to make any buttermaker helper analysis of her anticipated gastric function return until nutritionally optimized. will leave ileostomy catheter cannulated for now - continuous difficulty with self catheterization. hopefully home tomorrow. care plan reviewed with hospitalist service. no overnight concerns. tube feed decreased to 65cc/hr. no ileostomy concerns. needed to vent gtube once last mike for 800cc. unable to sleep last mike (or last 4 evenings). abd soft. exam unchanged. gastroparesis, query dumping physiology. care plan discussed at length with hospitalist, GI, patient and fiance. planning to switch tube feeds today. GI working on domperidone and outpatient assessment with one of their motility partners. continue PPI. continued supportive care. needs to optimize nutritional status before being able to make any determinations regarding [facility] prognosis. will likely need ongoing IVF at home intermittently. will remove ileostomy catheter today. vent gtube prn. pt re-admitted last mike after disch Friday. complaints of lightheaded, palpitations and chest discomfort with positional changes and intermittent cramps. RLQ cramps/pouchitis concerns better. high gastric residuals since discharge as well (minimal while in hospital). avss. comfortable. abd soft. incis clean. drains all secure. receiving 65cc/hr tube feed (which used to be 30 -35cal/kg/day but now closer to 40 given her generalized weight loss). i am suspecting that her most recent constellation of symptoms may be secondary to either dumping syndrome (especially in light of her recent gastrojejunostomy and somewhat improved SMA emptying pattern) vs possible gastric hypersecretion. her gastroparesis does not help in sorting this out entirely. will initiate PPI therapy and try slowing down her tube feed formula and water flushes (she is getting IVF as a supplement here and will be continuing at home). will also try adding fiber to tube feed - discussed with semiconductors wafer breaker. will review with GI possibility of domperidone. gastric pacemaker option generally not very helpful. last resort if gastroparesis fails to resolve would be gastrectomy. all above discussed in detail with patient and fiance and semiconductors wafer breaker. Plan: 02/03/17 13:37 02/04/17 14:59 02/05/17 12:52 Objective: Vital Signs Temp Pulse Resp BP Pulse Ox 36.5 C 90 18 99/61 L 98 02/05/17 11:54 02/05/17 11:54 02/05/17 11:54 02/05/17 11:54 02/05/17 11:54 Laboratory Results 02/05/17 05:20 02/04/17 02/05/17 02/06/17 05:59 05:59 05:59 Intake Total 0962 2070 Output Total 800 1425 Balance 2 645 ICD10 Worksheet Patient Problems: Problems Problem Status Onset Dehydration Acute Hypochloremia Acute Near syncope Acute Shortness of breath Acute Abdominal abscess Acute
[2017-02-05 17:44] LABS: POTASSIUM 3.4 mEq/L (3.5-5.2)
[2017-02-05] MEDS: CITALOPRAM 20 MG TAB TUBE SCH (20:34)
[2017-02-05] MEDS: lamoTRIgine 100 MG TAB TUBE SCH (20:34)
[2017-02-05] MEDS: ONDANSETRON 4 MG/2 ML VIAL IVP PRN (21:47)
[2017-02-05] MEDS ORDERED: POTASSIUM CL 20 MEQ/15 ML UDCUP TUBE ONE (22:16)
[2017-02-06 04:25] VITALS: TEMP 98.5
[2017-02-06 04:56] LABS: % IMMATURE GRANULYOCYTES 0.4 % (0.0-1.1); ABSOLUTE IMMATURE GRANULOCYTES 0.04 10^3/uL (0.00-0.10); ADD DIFF? NO; ADD MORPH? NO; ADD SCAN? NO; ATYPICAL LYMPHOCYTE FLAG 20 (0-99); FRAGMENT RBC FLAG 0 (0-99); HEMATOCRIT 31.5 % (38.0-47.0); HEMOGLOBIN 10.4 g/dL (12.6-16.3); LEFT SHIFT FLG 0 (0-99); LIPEMIA HEMOLYSIS FLAG 80 (0-99); MEAN CELL HEMOGLOBIN 28.5 pg (27.9-34.1); MEAN CELL VOLUME 86.3 fL (81.5-99.8); MEAN PLATELET VOLUME 8.4 fL (8.7-11.7); PLATELET CLUMPS FLAG 10 (0-99); PLATELET COUNT 354 10^3/uL (150-400); RED BLOOD CELL COUNT 3.65 10^6/uL (4.18-5.33); RED CELL DISTRIBUTION WIDTH 13.2 % (11.5-15.2)
[2017-02-06 05:19] LABS: ANION GAP 12 mEq/L (8-16); CALCIUM 8.9 mg/dL (8.5-10.4); CARBON DIOXIDE 19 mEq/l (22-31); CHLORIDE 111 mEq/L (97-110); CREATININE 0.6 mg/dL (0.6-1.0); GLOMERULAR FILTRATION RATE > 60; GLUCOSE 97 mg/dL (70-100); MAGNESIUM 2.1 mg/dL (1.6-2.3); POTASSIUM 4.5 mEq/L (3.5-5.2); SODIUM 142 mEq/L (134-144)
[2017-02-06 07:43] VITALS: BP 99/51; PULSE 73; RESP 18; O2SAT 98
[2017-02-06] MEDS ORDERED: NS 500 ML IV ONE (09:17)
[2017-02-06] MEDS: metroNIDAZOLE 250 MG TAB TUBE SCH ×2 (09:18→16:19)
[2017-02-06] MEDS: PANTOPRAZOLE SODIUM 40 MG VIAL IVP SCH (09:18)
[2017-02-06] MEDS: ASCORBIC ACID 500 MG TAB TUBE SCH (09:21)
[2017-02-06] MEDS: CIPROFLOXACIN 500 MG TAB TUBE SCH (09:57)
--- NOTE | 2017-02-06 13:05 | SOAPPROG ---
SOAP Progress Note Assessment/Plan: Assessment:no new overnight events. felt dizzy earlier today - better with IV challenge. tolerating tube feed well ([employer] formula). gtube drained secondary to discomfort for 1300cc. avss. exam unchanged. plan for dc today. suggest home VNA for daily IVF challenge until steady state reached. Will need weekly labs as well. Will have standing office appointment with me weekly for check-ins. Will review with hospitalist service. Discussed at length with patient, fiance, future father in law, and hospitalist service. difficulty emptying ileostomy after cath removal last night with associate right hip/groin pain - improved with recannulation and toradol. gtube drainage less. has not walked much. less dizziness. avss. comfortable. abd soft, nontender. drains secure. ileostomy thin succus. decreased sensation along right ASIS toward pubis. 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 will stop continuous IVF - will need intermittent fluid challenges at home as previously prescribed. switch tube feed formula and continue PPI - clinical dumping physiology - ok to have po as tolerated. will complete cipro/flagyl end of week for pouchitis. appreciate GI assist for possible domperidone trial - cautious optimism of any benefit here - suspect her gastroparesis will continue to stutter. unable to make any senior living analysis of her anticipated gastric function return until nutritionally optimized. will leave ileostomy catheter cannulated for now - continuous difficulty with self catheterization. hopefully home tomorrow. care plan reviewed with hospitalist service. no overnight concerns. tube feed decreased to 65cc/hr. no ileostomy concerns. needed to vent gtube once last mike for 800cc. unable to sleep last mike (or last 4 evenings). abd soft. exam unchanged. gastroparesis, query dumping physiology. care plan discussed at length with hospitalist, GI, patient and fiance. planning to switch tube feeds today. GI working on domperidone and outpatient assessment with one of their motility partners. continue PPI. continued supportive care. 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 will likely need ongoing IVF at home intermittently. will remove ileostomy catheter today. vent gtube prn. pt re-admitted last mike after disch Friday. complaints of lightheaded, palpitations and chest discomfort with positional changes and intermittent cramps. RLQ cramps/pouchitis concerns better. high gastric residuals since discharge as well (minimal while in hospital). avss. comfortable. abd soft. incis clean. drains all secure. receiving 65cc/hr tube feed (which used to be 30 -35cal/kg/day but now closer to 40 given her generalized weight loss). i am suspecting that her most recent constellation of symptoms may be secondary to either dumping syndrome (especially in light of her recent gastrojejunostomy and somewhat improved SMA emptying pattern) vs possible gastric hypersecretion. her gastroparesis does not help in sorting this out entirely. will initiate PPI therapy and try slowing down her tube feed formula and water flushes (she is getting IVF as a supplement here and will be continuing at home). will also try adding fiber to tube feed - discussed with ict systems test engineer. will review with GI possibility of domperidone. gastric pacemaker option generally not very helpful. last resort if gastroparesis fails to resolve would be gastrectomy. all above discussed in detail with patient and fiance and ict systems test engineer. Plan: 02/03/17 13:37 02/04/17 14:59 02/05/17 12:52 02/06/17 13:03 Objective: Vital Signs Temp Pulse Resp BP Pulse Ox 36.9 C 73 18 99/51 L 98 02/06/17 07:42 02/06/17 07:42 02/06/17 07:42 02/06/17 07:42 02/06/17 07:42 Laboratory Results 02/06/17 04:40 02/06/17 04:40 02/05/17 02/06/17 02/07/17 05:59 05:59 05:59 Intake Total 2069 2044 Output Total 1424 2022 Balance 645 22 ICD10 Worksheet Patient Problems: Problems Problem Status Onset Dehydration Acute Hypochloremia Acute Near syncope Acute Shortness of breath Acute Abdominal abscess Acute
--- NOTE | 2017-02-06 13:23 | PDDCSUM ---
Discharge Summary Discharge Summary: Dates of service 02/03-02/06/17 Consultations: General surgery, GI Procedures performed: chest/thorax cta Hospital course by problem: 1. Recurrent symptomatic dehydration - improving - Suspect related to continued ostomy output with dumping physiology, low PO intake, and lack of IV fluids. - discussed plan of care with Dr. Yao, plan will be to continue IV fluids at home--1L NS/day, with home health 2. Near syncope - CTA chest negative for PE, no recurrence, likely due to above 3. 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 Yao. - Continue TF, fiber - Dietary consult done, diff TF formula recvd and sent home on that, on lower volumes also 4. AGMA - -resolved 5. severe malnutrition per AND/ASPEN guidelines -watch dial stoner consult revwd, see above dc home with home health f/u with Dr. Yao and GI as well as PCP > 35 min spent in dc more than half in coordination of care, challenging discharge
--- NOTE | 2017-02-06 13:23 | PDIAF ---
- Diagnosis Code Status: Full Code - Medication Management Discharge Medications: Medications to Continue on Transfer Ascorbic Acid [Vitamin C 500 mg (*)] 500 mg PO DAILY 12/03/16 [Last Taken ] Citalopram [CeleXA 20 MG] 20 mg TUBE HS 12/03/16 [Last Taken 02/01/17 23:00 20 mg] lamoTRIgine [LamICTAL 100 MG (*)] 100 mg TUBE HS 12/03/16 [Last Taken 02/01/17 23:00 100 mg] Ondansetron Odt [Zofran Odt 4 mg (*)] 4 mg SL Q4 PRN 01/29/17 [Last Taken 22:00 4 mg] Ciprofloxacin [Cipro] 500 mg TUBE BID@1000,2000 10 Days tab 02/01/17 [Last Taken 02/02/17 10:00 500 mg] metroNIDAZOLE [Flagyl 250 mg (*)] 250 mg TUBE TID 10 Days tab 02/01/17 [Last Taken 02/02/17 10:00 250 mg] Dicyclomine [Bentyl 10 MG (*)] 20 mg TUBE Q4H PRN 02/03/17 [Last Taken 02/02/17 10:00 20 mg] Multivitamins [Multivitamin (*)] 1 each TUBE DAILY 02/03/17 [Last Taken Unknown] Alteplase [Cathflo Activase 2 mg (*)] 2 mg IVP PRN PRN vial 02/06/17 [Last Taken Unknown] Ns [NS IV 1000ml (*)] 1,000 ml IV DAILY #30 bag 02/06/17 [Last Taken Unknown] Pantoprazole Sodium 40 mg PO BID #60 tablet. 02/06/17 [Last Taken Unknown] Discharge Medications: Refer to the Discharge Home Medication list for PRN reason. - Orders Services needed: Home Care, Registered Nurse, Certified Media Professional Home Care Face to Face: I certify that this patient was under my care and that I had the required [id number]-rerv encounter meeting the encounter requirements on the discharge day. My findings support the fact that the patient is homebound as defined in Home Care Face to Face Continued: CMS Chapter 7 Medicare Benefits Manual 30.1.1 , The condition of the patient is such that there exists a normal inability to leave home and consequently, leaving home would require a considerable and taxing effort. Diet Recommendation: other (Vee B2Brev Tube Feeds as per orders) Tube feeding: Vee B2Brev Tube Feeds at 60cc/hr, 75 cc q4 water flushes Wound Care Instructions: ostomy care per routine - Labs/Radiology BMP Date: 02/12/17 (q Friday) - Follow Up Care Current Providers and Referrals: Richy Yao MD [Primary Care Provider] - As per Instructions Adiel Dacosta MD [Medical Doctor] -
--- NOTE | 2017-02-07 12:38 | ASMTCMCOM ---
CM Note CM Note Notes: Late Entry for 02/06/17 Pt. w/ d/c order on 02/06. After sending d/c orders and meds via [employer], [facility] intially stated they could not staff development coordinator rn for Pt. [facility] had been briefed and given notes throughout Pt's admission. SWer found that HC agency not taking Pt. on day of d/c was not acceptable. CM Management Information Systems Director called [facility] and they stated they could provide RN on Thursday 02/08 at 9:00. Spoke w/ Leticia from [facility] infusion . Leticia and Pt. state Pt. has plenty of [employer] enteral feeds and [facility] will be following case. Leticia verified again that [facility] cannot provide normal saline for picc infusions (dehydration). SWer had difficulty finding a pharmacy that carries normal saline. Did locate outpatient pharmacy at [facility] that could provide normal saline. Faxed prescription at Pt's request. Contact: [phone]. SWer called Claudia Alf who was able to see Pt. and Claudia also planned to call her at home today, 02/07/17 to check in. Pt. d/c'ed with el and el's father to their [place] home: [address] [place] [address]. Current plan: [facility] RN to visit Thursday 02/08 at 9:00 am. Informed Pt. of time and asked her to please be present. [facility] infusion is following. Date Signed: 02/07/2017 12:38 PM Electronically Signed By:Melyssa Silva LCSW
--- NOTE | 2017-02-07 12:40 | ASDISCHSUM ---
Discharge Information Plan Status:IV ABX/Infusion Medically Cleared to Leave: Discharge Date:02/06/2017 04:53 PM CM D/C Disposition:Home Health Service ADT D/C Disposition:Home Health Service Projected Discharge Date:02/06/2017 03:00 PM Transportation at D/C:Family Discharge Delay Reason: Follow-Up Date:02/06/2017 03:00 PM Discharge Slot: Final Diagnosis: Placement Information Referral Type:*Home Health Care Services Referral ID:[id number] Provider Name:[facility] Address 1:[address] Address 2: City:[facility] Selection Factors: State:[place] Referral Type:Home Infusion Referral ID:[id number] Provider Name:[facility] [place] Address 1:[address] [facility] Phone Number: Address 2: Fax Number: City:[place] Selection Factors: State:[place] Patient Contact Information Contact Name:AGUILAR Relationship:Other Address: Work Phone: City: [facility] Phone: State/Zip Code: Email: Financial Information Financial Class:HMO and PPO Plans Primary Plan Desc: OUT OF STATE PPO Primary Plan Number:[id number] Secondary Plan Desc:MED[place] Secondary Plan Number:[id number] Assessment Information BC Initial CM Assessment Living Arrangements What is your living Answers: With Other (Not Family) arrangement? Who do you live with? Type Of Residence What kind of residence do Answers: Unknown you live in? 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 She was admitted for recurrent deydration and elevated D-dimer. 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 Patient needs a surgical and dietary consult. C/M needs not clear at this time. CM will follow. Date Signed: 02/03/2017 10:33 AM Electronically Signed By:Jennifer Hernandez LCSW [facility] Progress Note CM Note CM Note Notes: Spoke with Anna from [facility] in [place]. They have patient open for services. Confirmed patient is in the hospital with us. Anna would like notice of when patient will be d/c'ed as she is concerned about a nurse visiting in 24 hours vs. 48. Please call Anna at [phone] when d/c needs and/or plan is clear. CM will follow. Date Signed: 02/03/2017 03:24 PM Electronically Signed By:Jennifer Hernandez LCSW [facility] CM Progress Note CM Note CM Note Notes: Met with patient re: Dr. Webb's concern patient have a PCP. Patient agreed she needs a family dr. Scheduled patient with Dr. Hill of [facility] on 02/17/17 At 12:00 noon. ([phone]). Patient was given an appointment card and confirmed this appointment will work with her schedule. Leticia Mejia from [facility] came to visit patient today and confirms they have been doing all her food delivery. Leticia's number is [phone]. [facility] is taking care of patient's nursing needs. (Anna : [phone]). Patient is satisfied with services she is getting from both agencies. Patient has left for this semester and will be living with her fiance and his family in [place]. Someone is usually always available/home in this living arrangement. Patient's mother was at her bedside today. CM will follow. Date Signed: 02/04/2017 02:40 PM Electronically Signed By:Jennifer Hernandez LCSW [facility] CM Progress Note CM Note CM Note Notes: Late Entry for 02/06/17 Pt. w/ d/c order on 02/06. After sending d/c orders and meds via [employer], [facility] intially stated they could not staff trainer for Pt. [facility] had been briefed and given notes throughout Pt's admission. SWer found that HC agency not taking Pt. on day of d/c was not acceptable. CM World Language Teacher called [facility] and they stated they could provide RN on Thursday 02/08 at 9:00. Spoke w/ Leticia from [facility] infusion . Leticia and Pt. state Pt. has plenty of [employer] enteral feeds and [facility] will be following case. Leticia verified again that [facility] cannot provide normal saline for picc infusions (dehydration). SWer had difficulty finding a pharmacy that carries normal saline. Did locate outpatient pharmacy at [facility] that could provide normal saline. Faxed prescription at Pt's request. Contact: [phone]. SWer called Claudia Milner who was able to see Pt. and Claudia also planned to call her at home today, 02/07/17 to check in. Pt. d/c'ed with el and el's father to their [place] home: [address] [place] [address]. Current plan: [facility] RN to visit Thursday 02/08 at 9:00 am. Informed Pt. of time and asked her to please be present. [facility] infusion is following. Date Signed: 02/07/2017 12:38 PM Electronically Signed By:Melyssa Silva LCSW [facility]
--- NOTE | 2017-02-08 17:58 | ASMTCMCOM ---
CM Note CM Note Notes: POST-D/C NOTE CM received call from Idalia Salgado at [facility] today, 02/08/17. [facility] went to meet Pt. for her scheduled homecare visit today at 9:00 and realized Pt. did not have proper supplies for picc care for the normal saline drip. This CM did not realize that Leticia at [facility] was not providing this even after communicating with her several times. CM called [facility] to provide picc care. Nancy liaison, answered on the weekend and let CM know how to order proper supplies. Hospitalist provided script. [facility] can also provide normal saline if Pt. didn't get all 30 bags yesterday as prescribed. CM hard faxed scripts to [facility] today [phone]. [facility] states no problem with providing this care and will get supplies to Pt. by tomorrow. In the meantime, [facility] found approrpiate supplies for two days worth. CM apologized to [facility] for the confusion. Idalia very understanding. Plan: [facility] providing picc supplies, [facility] providing enteral feeds and supplies for feeding only, and [facility] following Pt. to make sure all is coordinated properly and Pt. is getting proper care. Date Signed: 02/08/2017 05:57 PM Electronically Signed By:Melyssa Silva LCSW
== END 2017-02-06 16:53 | disposition home health service (06) | DRG 640 ==
LOC: F3E 02-03 00:54 → OBSVTOIN 02-03 14:20
PROVIDERS: ADMIT Student in an Organized Health Care Education/Training Program; ATTEND Student in an Organized Health Care Education/Training Program
DX: E86.0 Dehydration (principal); K31.84 Gastroparesis; E43 Unspecified severe protein-calorie malnutrition; K55.1 Chronic vascular disorders of intestine; E87.6 Hypokalemia; E87.8 Other disorders of electrolyte and fluid balance, not elsewhere classified; E87.2 Acidosis; Z93.2 Ileostomy status; Z93.1 Gastrostomy status
CPT/HCPCS: 82941-90; 96374; J1885; J2405; J2997; J3475; Q9967

== ENCOUNTER 2017-03-02 03:11 | Inpatient (IN) | payer BC, MEDICAID ==
[2017-03-02] MEDS ORDERED: LORazepam 0.5 MG TAB TUBE PRN (05:50)
[2017-03-02 06:35] LABS: ANION GAP 9 mEq/L (8-16); CALCIUM 8.3 mg/dL (8.5-10.4); CARBON DIOXIDE 26 mEq/l (22-31); CHLORIDE 103 mEq/L (97-110); CREATININE 0.6 mg/dL (0.6-1.0); GLOMERULAR FILTRATION RATE > 60; GLUCOSE 84 mg/dL (70-100); POTASSIUM 3.4 mEq/L (3.5-5.2); SODIUM 138 mEq/L (134-144)
[2017-03-02] MEDS: HYDROCOD/APAP 7.5/325 IN 15ML UDCUP TUBE PRN ×4 (06:41→22:52)
[2017-03-02] MEDS: POTASSIUM Cl (KCl) 40 MEQ in D5W NS 1,000 ML IV SCH ×2 (06:55→23:05)
[2017-03-02] MEDS: PIPERACILLIN/TAZO 2.25 GM/DEX 50 ML IV SCH ×4 (06:55→23:07)
[2017-03-02] MEDS ORDERED: KETOROLAC 30 MG/1 ML SDV IVP ONE ×2 (07:15→10:45)
[2017-03-02] MEDS: POTASSIUM Cl (KCl) 10 MEQ in NS 100 ML IV SCH ×4 (07:57→11:30)
[2017-03-02] MEDS ORDERED: DICYCLOMINE 10 MG CAP TUBE PRN (10:30)
[2017-03-02] MEDS ORDERED: ALTEPLASE 2 MG VIAL IVP PRN ×2 (10:30→13:46)
[2017-03-02] MEDS ORDERED: ONDANSETRON DISINTEGRATING 4 MG TAB PO PRN (10:30)
--- NOTE | 2017-03-02 11:32 | GHP ---
[f rep st] HISTORY AND PHYSICAL DATE OF ADMISSION: 03/02/2017 REASON FOR ADMISSION: Right lower quadrant abscess. HISTORY OF PRESENT ILLNESS: 21-year-old female, transferred from [facility] in [place] for a right lower quadrant abscess earlier this morning. 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 She has had extensive abdominal surgeries and hospitalizations related to the aforementioned diagnosis. Her current anatomy consists of a total abdominal colectomy with continent ileostomy along with feeding jejunostomy tube, gastrojejunostomy, and decompressive G-tube. She has had multiple admissions over the last number of months related to dehydration, malnutrition, gastroparesis, SMA syndrome. She has currently been being maintained at home with continuous J-tube feeds and twice daily fluid challenges with potassium supplementation. She has been being followed in the office weekly for ongoing surveillance. She presented to the emergency room this morning with severe worsening right lower quadrant pain. CT imaging was repeated showing a small para ileostomy abscess. She was transferred down to [place] for further treatment recommendations. 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 PAST SURGICAL HISTORY: Multiple exploratory laparotomies with colon resections , reanastomosis, and most currently a total abdominal colectomy with continent ileostomy, gastrojejunostomy, PEG tube placement and feeding jejunostomy tube placement. MEDICATIONS: Celexa, lamotrigine, [employer] tube feeds, vitamin C, Prevacid, Ativan p.r.n., Bentyl p.r.n., potassium chloride 40 mEq daily. ALLERGIES: Mustard casein. SOCIAL HISTORY: No alcohol, no tobacco. 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 She is engaged to [employer]. FAMILY HISTORY: Noncontributory. REVIEW OF SYSTEMS: Notable for ongoing GI concerns, history of prior eating disorder, malnutrition, anorexia, hypokalemia. PHYSICAL EXAMINATION: VITAL SIGNS: Temperature 36.6, blood pressure 70s over 50s, heart rate 60s, respirations 16. GENERAL: The patient is alert, appropriate, comfortable. HEENT: Anicteric with slightly sunken pupils. Oral mucosa dry. HEART: Regular. LUNGS: Clear. ABDOMEN: Soft with focal right lower quadrant tenderness adjacent to her ileostomy catheter. Ileostomy, jejunostomy and gastrostomy tubes all secure. No abdominal wall erythema. No fluctuance. EXTREMITIES: Thin without edema. LABORATORY DATA: Potassium 2.7 earlier this morning, currently 3.4. Remaining electrolytes within reference range of present time. CT [facility] directly reviewed on PACS and with radiologist. Multiloculated right lower quadrant abscess adjacent to continent ileostomy. IMPRESSION: 1. 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 2. Profound ongoing gastroparesis - gastric emptying study was completed at [facility] on Friday. Gastrointestinal autoimmune labs were obtained last week. 3. Hypokalemia-improved with bolus supplementations. 4. Ongoing dehydration with insensible GI loss 5. 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 PLAN: 1. Will request Interventional Radiology drainage of her right lower quadrant abscess with possible pigtail catheter placement later today, IV ABX were empirically initiated. 2. Await review of [facility] emptying studies from last week. 3. Awaiting autoimmune markers for possible IVIG candidacy. 4. If autoimmune markers return normal, the patient's next course of action may likely include a total gastrectomy with esophagojejunostomy. She is failing medical management options. These findings and recommendations were discussed at length with the patient and father at bedside and previously with her new GI physician, Dr. Dacosta. Final recommendations to be determined. /[id number]/MODL MTDD
[2017-03-02] MEDS ORDERED: GLUCAGON HCL 1 MG VIAL IVP PRN (13:46)
[2017-03-02] MEDS ORDERED: MIDAZOLAM 2 MG/2 ML VIAL IVP PRN (13:46)
[2017-03-02] MEDS ORDERED: PROTAMINE SULFATE 50 MG/5 ML VIAL IVP PRN (13:46)
[2017-03-02] MEDS ORDERED: NALOXONE HCL 0.4 MG/ML INJ IVP PRN (13:46)
[2017-03-02] MEDS ORDERED: MEPERIDINE 25 MG/ML SYR IVP PRN (13:46)
[2017-03-02] MEDS ORDERED: fentaNYL 100 MCG/2 ML INJ IVP PRN (13:46)
[2017-03-02] MEDS ORDERED: HEPARIN 10,000 UNIT/10 ML MDV IVP PRN (13:46)
[2017-03-02] MEDS ORDERED: FLUMAZENIL 0.5 MG/5 ML MDV IVP PRN (13:46)
[2017-03-02] MEDS ORDERED: NS 1,000 ML IV SCH (14:00)
[2017-03-02] MEDS ORDERED: IOPAMIDOL (ISOVUE-300) 100 ML BTL ONE (14:23)
[2017-03-02] MEDS ORDERED: ONDANSETRON 4 MG/2 ML VIAL ONE ×2 (14:49→22:31)
[2017-03-02] MEDS ORDERED: NALOXONE HCL 0.4 MG/ML INJ ONE (14:49)
[2017-03-02] MEDS ORDERED: fentaNYL 100 MCG/2 ML INJ ONE (14:49)
[2017-03-02] MEDS ORDERED: FLUMAZENIL 0.5 MG/5 ML MDV IVP ONE (14:49)
[2017-03-02] MEDS ORDERED: MIDAZOLAM 2 MG/2 ML VIAL ONE (14:49)
[2017-03-02] MEDS ORDERED: ATROPINE SULFATE 1 MG/ML VIAL ONE (15:02)
[2017-03-02] MEDS: NS 1,000 ML BAG IV SCH (15:44)
--- NOTE | 2017-03-02 16:01 | PDPROPOC ---
Sedation Plan of Care Sedation Plan of Care: vital signs stable, mental status noted, patient educated of risks, benefits, alternatives, patient can tolerate sedation ASA Classification: ASA 3 Planned drugs: fentanyl, midazolam Mallampati Score: Class 1 Mallampati Reference Image: Patient passed 3-3-2 rule?: Yes
--- NOTE | 2017-03-02 16:04 | PDRADPN ---
Radiology Procedure Note Date of Procedure: 03/02/17 Radiologist: Ayo Montes Anesthesia: IV Sedation Pre-op Diagnosis: Abdominal abscess Post-op Diagnosis: same Indication: Abdominal pain, fever, abnormal CT from [facility] Procedure: Percutaneous abscess drainage Finding(s): 3 ml abscess. Fistula to small bowel. Inf/Abcess present in the surg proc area at time of surgery?: Yes Depth: Deep Incisional (Fascial) EBL: Minimal Complications: 0 Specimen(s): 2 ml pus sent to lab for aerobic, anaerobic, and fungal cultures.
--- NOTE | 2017-03-02 16:34 | ASMTCMCOM ---
CM Note CM Note Notes: Pt admitted w/ an abdominal pelvic abscess. Pt transferred from [facility] in [facility]. Pt well-known to MD, long GI history w/ multiple surgeries. Per MD notes, abscess drained today in IR. Pt to have further GI studies and workup. Discharge needs remain TBD at this time. CM will cont to follow. Current discharge plan: TBD Date Signed: 03/02/2017 04:33 PM Electronically Signed By:Ashleigh Jiménez RN
[2017-03-02] MEDS: HYDROmorphone HCL/NS/PF 0.4 MG/2 ML SYR IV PRN ×2 (17:04→21:15)
[2017-03-02] MEDS: CITALOPRAM 20 MG TAB TUBE SCH (21:15)
[2017-03-02] MEDS: lamoTRIgine 100 MG TAB TUBE SCH (21:15)
[2017-03-02] MEDS: LANSOPRAZOLE SUSP 30MG/10ML UDSYR (Adult) PO SCH (21:16)
[2017-03-02] MEDS: ONDANSETRON 4 MG/2 ML VIAL IVP PRN (23:06)
--- NOTE | 2017-03-02 23:12 | SOAPPROG ---
SOAP Progress Note Assessment/Plan: Assessment:interventional care plan reviewed with Dr. Montes earlier today. 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 will place ileostomy to gravity drainage and continue zosyn and pigtail management for now. patient's outpatient care needs and social situation discussed at length with father. will continue supportive care measure, drain care and ABX in hospital. requested gastric emptying study records. will await immunologic markers. will review nutritional plan with clam grader tomorrow. will obtain nutritional markers in am as well. Plan: 03/02/17 23:08 Objective: Vital Signs Temp Pulse Resp BP Pulse Ox 36.6 C 79 14 88/58 L 95 03/02/17 22:35 03/02/17 22:35 03/02/17 22:35 03/02/17 22:35 03/02/17 22:35 Microbiology 03/02/17 15:30 Gram Stain - Final Abdomen - Aspirate Laboratory Results 03/02/17 06:05 03/01/17 03/02/17 03/03/17 05:59 05:59 05:59 Intake Total 500 3250 Output Total 3 Balance 500 3247 ICD10 Worksheet Patient Problems: Problems Problem Status Onset Abdominal abscess Acute Dehydration Acute Hypochloremia Acute Near syncope Acute Shortness of breath Acute
[2017-03-03] MEDS: HYDROmorphone HCL/NS/PF 0.4 MG/2 ML SYR IV PRN ×5 (01:44→21:45)
[2017-03-03] MEDS: HYDROCOD/APAP 7.5/325 IN 15ML UDCUP TUBE PRN ×4 (05:20→23:07)
[2017-03-03] MEDS: PIPERACILLIN/TAZO 2.25 GM/DEX 50 ML IV SCH ×4 (05:28→23:07)
[2017-03-03] MEDS: KETOROLAC 15 MG/1 ML SDV IVP PRN ×2 (05:45→15:19)
[2017-03-03 05:49] LABS: % IMMATURE GRANULYOCYTES 0.4 % (0.0-1.1); ABSOLUTE IMMATURE GRANULOCYTES 0.04 10^3/uL (0.00-0.10); ADD DIFF? NO; ADD MORPH? NO; ADD SCAN? NO; ATYPICAL LYMPHOCYTE FLAG 10 (0-99); FRAGMENT RBC FLAG 0 (0-99); HEMATOCRIT 29.1 % (38.0-47.0); HEMOGLOBIN 9.9 g/dL (12.6-16.3); LEFT SHIFT FLG 0 (0-99); LIPEMIA HEMOLYSIS FLAG 90 (0-99); MEAN CELL HEMOGLOBIN 29.5 pg (27.9-34.1); MEAN CELL VOLUME 86.6 fL (81.5-99.8); MEAN PLATELET VOLUME 8.5 fL (8.7-11.7); PLATELET CLUMPS FLAG 10 (0-99); PLATELET COUNT 301 10^3/uL (150-400); RED BLOOD CELL COUNT 3.36 10^6/uL (4.18-5.33); RED CELL DISTRIBUTION WIDTH 14.3 % (11.5-15.2)
[2017-03-03 06:05] LABS: ALANINE AMINOTRANSFERASE 35 IU/L (9-52); ALBUMIN 2.6 g/dL (3.5-5.0); ALKALINE PHOSPHATASE 56 IU/L (38-126); ANION GAP 9 mEq/L (8-16); ASPARTATE AMINOTRANSFERASE 16 IU/L (14-46); BILIRUBIN,TOTAL 0.1 mg/dL (0.1-1.4); CARBON DIOXIDE 25 mEq/l (22-31); CHLORIDE 107 mEq/L (97-110); CREATININE 0.5 mg/dL (0.6-1.0); GLOMERULAR FILTRATION RATE > 60; GLUCOSE 112 mg/dL (70-100); POTASSIUM 4.5 mEq/L (3.5-5.2); SODIUM 141 mEq/L (134-144)
[2017-03-03 06:12] LABS: PREALBUMIN 16.9 mg/dL (17.6-36.0)
--- NOTE | 2017-03-03 08:36 | SOAPPROG ---
SOAP Progress Note Assessment/Plan: Assessment: RLQ pain from abscess better - drain pain mostly. constant nausea/ heaving overnight - requires venting gastrostomy for relief with antiemetics. no other new issues. afebrile. alert, appropriate, pale. abd soft. pigtail irrigated - murky sang fluid. ileostomy thick, appropriate. albumin 2.6, prealb 17, >4. difficult situation. severe protein calorie malnutrition, ileostomy pouch fistula/abscess now drained - suspect will close with continued drainage of both abscess and pouch-will cont zosyn for now. continued profound gastroparesis - await emptying study results - will place cath to drainage for symptomatic relief. discussed additional nutritional strategies - she is willing to try other formula option - casein created nausea on prior testing in her teens - may be able to provide more effective calories through other means ( vs possible TPN if necessary) - her weight loss and continued clinical appearance decline is worrisome. add PT to help with activity. add SCD for DVT prophylaxis. care plan reviewed at length with patient and father at bedside as well as nursing staff. will speak with milieu counselor later today. interventional care plan reviewed with Dr. Montes earlier today. 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 will place ileostomy to gravity drainage and continue zosyn and pigtail management for now. patient's outpatient care needs and social situation discussed at length with father. will continue supportive care measure, drain care and ABX in hospital. requested gastric emptying study records. will await immunologic markers. will review nutritional plan with milieu counselor tomorrow. will obtain nutritional markers in am as well. Plan: 03/02/17 23:08 03/03/17 08:30 Objective: Vital Signs Temp Pulse Resp BP Pulse Ox 37.5 C 106 H 14 94/57 L 91 L 03/03/17 04:00 03/03/17 04:00 03/03/17 04:00 03/03/17 04:00 03/03/17 04:00 Microbiology 03/02/17 15:30 Gram Stain - Final Abdomen - Aspirate Laboratory Results 03/03/17 05:30 03/03/17 05:30 03/02/17 03/03/17 03/04/17 05:59 05:59 05:59 Intake Total 500 2257 Output Total 153 Balance 500 9829 ICD10 Worksheet Patient Problems: Problems Problem Status Onset Abdominal abscess Acute Dehydration Acute Hypochloremia Acute Near syncope Acute Shortness of breath Acute
[2017-03-03] MEDS: ASCORBIC ACID 500 MG TAB PO SCH (08:57)
--- NOTE | 2017-03-03 10:24 | ASMTCMCOM ---
CM Note CM Note Notes: Patient's weight loss and decline in her clinical appearance is worrisome. Nutritional strategies are being reviewed and PT has been ordered to help with activity. Patient's ileostomy pouch fistula/abcess is drained. Continue with ABX in hospital. Patient had been at her boyfriend's home in [facility] where there is someone home 24 hours a day. She is planning to return there with supportive services (home health) at d/c. CM will follow. Date Signed: 03/03/2017 10:24 AM Electronically Signed By:Jennifer Hernandez LCSW
[2017-03-03] MEDS: LANSOPRAZOLE SUSP 30MG/10ML UDSYR (Adult) PO SCH ×2 (12:49→21:46)
[2017-03-03] MEDS: POTASSIUM Cl (KCl) 40 MEQ in D5W NS 1,000 ML IV SCH (14:33)
[2017-03-03] MEDS: lamoTRIgine 100 MG TAB TUBE SCH (21:46)
[2017-03-03] MEDS: CITALOPRAM 20 MG TAB TUBE SCH (21:46)
[2017-03-03] MEDS: ONDANSETRON 4 MG/2 ML VIAL IVP PRN (23:08)
[2017-03-04] MEDS: PIPERACILLIN/TAZO 2.25 GM/DEX 50 ML IV SCH (06:18)
[2017-03-04] MEDS: HYDROCOD/APAP 7.5/325 IN 15ML UDCUP TUBE PRN ×4 (08:02→20:57)
[2017-03-04] MEDS: LANSOPRAZOLE SUSP 30MG/10ML UDSYR (Adult) PO SCH ×2 (08:02→21:34)
[2017-03-04] MEDS: ASCORBIC ACID 500 MG TAB PO SCH (08:02)
[2017-03-04] MEDS ORDERED: CIPROFLOXACIN 400 MG/DEXTROSE 200 ML IV SCH (10:00)
--- NOTE | 2017-03-04 10:20 | SOAPPROG ---
SOAP Progress Note Assessment/Plan: Assessment: No new overnight events. Drain pain mostly especially with flushing. Nausea / emesis persists - volume not documented. Multiple phone tags with floor sweeper yesterday. Cx - Kleb and enterococcus. Labs - NINI Ab neg ( [facility]). Nuc emptying study - normal emptying ([facility]) - patient states that she was told differently - i spoke with [facility] rads - normal 4 hour empty time discussed. AVSS. dry oral mucosa. abd soft. pigtail with slightly turbid fluid today. ileostomy thick succus - irrigated. incisions clean. J and G tube secure. discussed case with ID - will request further med reccs. LVM for floor sweeper to discuss tube feed alternative. intriguingly normal 4 hour gastric empty time - cont supportive care for now here, normal autoimmune markers. cont IVF for hydration needs. cont PT. fiance present throughout our discussion RLQ pain from abscess better - drain pain mostly. constant nausea/heaving overnight - requires venting gastrostomy for relief with antiemetics. no other new issues. afebrile. alert, appropriate, pale. abd soft. pigtail irrigated - murky sang fluid. ileostomy thick, appropriate. albumin 2.6, prealb 17, >4. difficult situation. severe protein calorie malnutrition, ileostomy pouch fistula/abscess now drained - suspect will close with continued drainage of both abscess and pouch-will cont zosyn for now. continued profound gastroparesis - await emptying study results - will place cath to drainage for symptomatic relief. discussed additional nutritional strategies - she is willing to try other formula option - casein created nausea on prior testing in her teens - may be able to provide more effective calories through other means ( vs possible TPN if necessary) - her weight loss and continued clinical appearance decline is worrisome. add PT to help with activity. add SCD for DVT prophylaxis. care plan reviewed at length with patient and father at bedside as well as nursing staff. will speak with floor sweeper later today. interventional care plan reviewed with Dr. Montes earlier today. 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 will place ileostomy to gravity drainage and continue zosyn and pigtail management for now. patient's outpatient care needs and social situation discussed at length with father. will continue supportive care measure, drain care and ABX in hospital. requested gastric emptying study records. will await immunologic markers. will review nutritional plan with floor sweeper tomorrow. will obtain nutritional markers in am as well. Plan: 03/02/17 23:08 03/03/17 08:30 03/04/17 10:08 03/04/17 10:24 Objective: Vital Signs Temp Pulse Resp BP Pulse Ox 37.2 C 93 14 108/64 92 03/04/17 07:56 03/04/17 07:56 03/04/17 07:56 03/04/17 07:56 03/04/17 07:56 Microbiology 03/02/17 15:30 Gram Stain - Final Abdomen - Aspirate Laboratory Results 03/03/17 05:30 03/03/17 05:30 03/03/17 03/04/17 03/05/17 05:59 05:59 05:59 Intake Total 1183 4076 Output Total 153 1408 Balance 4684 4857 ICD10 Worksheet Patient Problems: Problems Problem Status Onset Abdominal abscess Acute Dehydration Acute Hypochloremia Acute Near syncope Acute Shortness of breath Acute
[2017-03-04] MEDS: HYDROmorphone HCL/NS/PF 0.4 MG/2 ML SYR IV PRN ×4 (10:34→23:01)
[2017-03-04] MEDS: PIPERACILLIN/TAZO 3.375 GM/DEX 50 ML IV SCH ×2 (12:43→18:59)
[2017-03-04] MEDS ORDERED: PIPERACILLIN/TAZO 3.375 GM/DEX 50 ML IV SCH (14:00)
[2017-03-04] MEDS: NS 1,000 ML BAG IV SCH (15:19)
[2017-03-04] MEDS: POTASSIUM Cl (KCl) 40 MEQ in D5W NS 1,000 ML IV SCH (17:09)
--- NOTE | 2017-03-04 17:12 | ASMTCMCOM ---
CM Note CM Note Notes: Attempted several times to meet with patient and her fiance today to learn more about the home situation and how care is being handled there. However, it did not work out today.Patient is taking a nutritional formula that should be helping her gain weight, however, patient has lost another 1 pound. Patient's needs may be different than home care at this d/c depending on the progress she makes during the course of treatment during this hospitalization. Home Care is already in place for patient. D/C needs remain TBD at this time. CM will follow. Date Signed: 03/04/2017 05:12 PM Electronically Signed By:Jennifer Hernandez LCSW
--- NOTE | 2017-03-04 18:12 | GCON ---
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 CHIEF COMPLAINT: Abdominal pain. HISTORY OF PRESENT ILLNESS: This is a 21-year-old, female, with a past medical history significant for gastrointestinal obstruction status post multiple abdominal surgeries, colectomy, continent ileostomy, gastrojejunostomy , and persistent gastroparesis. She apparently has been living with her fimarko' s family in [place]. She was a student at but had to drop out this year. 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 She was transferred here from [facility] in [place] and underwent an IR drainage of this collection on the . Cultures are showing 2+ Klebsiella pneumoniae resistant only to ampicillin, and Enterococcus faecalis, susceptibilities pending. The patient was placed on Zosyn initially at 2.25 g q.6h from the until today, and then the dose was apparently changed to 3.375 q.8h. She was hospitalized back in November and was found to have a 6 cm extraluminal fluid collection that was suspicious for an abscess. At that point, she underwent exploratory lap with lysis of adhesions and drainage of abdominal abscess. Cultures at that time had grown out Klebsiella and E coli. She had been on antibiotics at that time with cefoxitin IV and then she was changed over to Levaquin at the time of discharge for an uncertain period of time. She was changed to Levaquin during hospitalization and then discharged on Cipro according to the discharge summary. She was readmitted to the hospital in December and underwent a PEG J placement. 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 She looks like she had about 3 hospitalizations since December, and then she was hospitalized in January as well due to abdominal pain and stoma leak. She was placed on Cipro and Flagyl at the time. REVIEW OF SYSTEMS: General: no fevers, or chills. HEENT: denies change in vision , sore throat, ear pain or drainage. Cardiovascular: denies chest pain or rapid heart beat. Respiratory: denies shortness of breath, Gastrointestinal: has nausea. denies excessive stools. Genitourinary: denies dysuria. Muskuloskeletal : denies joint pains, muscle aches. Skin: denies rash. Rest of 10 point review of system is unremarkable. PAST SURGICAL HISTORY: As above. ALLERGIES: Milk and mustard. FAMILY HISTORY: Significant for blood clots. SOCIAL HISTORY: She is a nonsmoker. Does not drink alcohol. No illicit drug usage. She lives with her fiance's family in [place]. 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 MEDICATIONS: As per eMAR. PHYSICAL EXAMINATION: VITAL SIGNS: Temperature current is 37.2, pulse is 73, blood pressure 98/53. Saturations are 98% on room air. Respiratory rate is 14. GENERAL: She is resting in bed. No acute respiratory distress. Awake, alert, and oriented. HEENT: Head is normocephalic, atraumatic. EYES: No conjunctival injection. No petechiae noted. CARDIOVASCULAR: S1 and S2. Regular rate and rhythm. No murmurs appreciated. RESPIRATORY: Clear to auscultate bilaterally. No rhonchi appreciated. ABDOMEN: Positive bowel sounds in all quadrants. She has a STEVE drain in place with serosanguineous drainage noted. She has an ileostomy drainage tube in place that connects to a bag. She has her jejunostomy tube present as well. LABORATORY DATA: White blood cell count is 9.1, hemoglobin 9.9, platelets are 301, neutrophil count of 75%. Sodium is 141, potassium 4.5, chloride 107, bicarb 25, BUN is 7, creatinine 0.5. LFTs are within the normal range. Microbiology as stated above. Records from were reviewed at length. 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 PLAN: Abscess collection appears to be adjacent to the surgically created pouch where the ileostomy drainage tube comes out of it, status post drainage by IR of this abscess collection. 3 mL of pus was aspirated out. Cultures are growing out Klebsiella and Enterococcus faecalis. The patient is currently on Zosyn. We will increase dosing to 3.375 g q.6 hours for now. Await final sensitivities to determine final antibiotic recommendations. She will likely need 2-4 weeks of therapy given above with close followup given that she has a fistula present as this will slow the process of resolution. Will see if oral options are available for down the road. We will add a CRP to yesterday's labs in hopes that it will help management going forward. She may need a followup CT prior to discontinuing antibiotics to ensure that this has resolved completely, although would try to limit this given her young age. Care coordinated with Dr. Yao earlier today. Greater than 70 minutes were spent in the care of this patient. I reviewed her records from [facility], reviewed all of her microbiologic data, as well as her CT scans and all her previous medical records, along with coordination of care. I thank you, very much, for this opportunity to care for your patient in consultation. /[id number]/MODL MTDD
[2017-03-04] MEDS: CITALOPRAM 20 MG TAB TUBE SCH (21:33)
[2017-03-04] MEDS: lamoTRIgine 100 MG TAB TUBE SCH (21:33)
[2017-03-04] MEDS: ONDANSETRON 4 MG/2 ML VIAL IVP PRN (21:52)
[2017-03-05] MEDS: PIPERACILLIN/TAZO 3.375 GM/DEX 50 ML IV SCH ×5 (00:07→23:50)
[2017-03-05] MEDS: HYDROCOD/APAP 7.5/325 IN 15ML UDCUP TUBE PRN ×5 (00:52→22:08)
[2017-03-05] MEDS: HYDROmorphone HCL/NS/PF 0.4 MG/2 ML SYR IV PRN ×5 (02:44→21:02)
[2017-03-05] MEDS: POTASSIUM Cl (KCl) 40 MEQ in D5W NS 1,000 ML IV SCH (08:08)
[2017-03-05] MEDS: ASCORBIC ACID 500 MG TAB PO SCH (10:04)
[2017-03-05] MEDS: LANSOPRAZOLE SUSP 30MG/10ML UDSYR (Adult) PO SCH ×2 (10:05→21:11)
[2017-03-05] MEDS: NS 1,000 ML BAG IV SCH (10:05)
--- NOTE | 2017-03-05 13:36 | PCMIDPN ---
Assessment/Plan: Assessment: Pelvic abscess-felt secondary to gastrointestinal bacteria. 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 Cultures of abscess fluid show Klebsiella pneumoniae and enterococcus faecalis. Patient is being treated with Zosyn monotherapy. She is not feeling clinically improved as of yet. It may be too early in the process at this point to expect improvement. Will continue to follow along. Plan: 1. Continue Zosyn monotherapy. 2. Follow clinical course. 3. Follow up on enterococcal sensitivities. Subjective: Patient is resting comfortably in her hospital bed. She notes that she still feels poorly. She complains of feeling hot cold and also feeling weak. No wilman fevers. Objective: Zosyn # 1 Vital Signs Temp Pulse Resp BP Pulse Ox 37.1 C 99 14 103/62 90 L 03/05/17 08:00 03/05/17 08:00 03/05/17 08:00 03/05/17 08:00 03/05/17 08:00 Microbiology 03/02/17 15:30 Gram Stain - Final Abdomen - Aspirate Laboratory Results 03/03/17 05:30 03/03/17 05:30 03/04/17 03/05/17 03/06/17 05:59 05:59 05:59 Intake Total 4076 1813 Output Total 1408 30 Balance 2668 1783 C-Reactive Protein 43.1 mg/L (<10.0) H 03/03/17 05:30 - Physical Exam General Appearance: WD/WN, alert, no apparent distress, thin, non-toxic Respiratory: lungs clear, normal breath sounds, No respiratory distress Cardiac/Chest: regular rate, rhythm, No tachycardia Abdomen: soft, No non-tender, No mass Skin: normal color, warm/dry, No rash Neuro/Psych: alert, normal mood/affect, oriented x 3 ICD10 Worksheet Patient Problems: Problems Problem Status Onset Abdominal abscess Acute Dehydration Acute Hypochloremia Acute Near syncope Acute Shortness of breath Acute
--- NOTE | 2017-03-05 18:12 | SOAPPROG ---
SOAP Progress Note Assessment/Plan: Assessment: no new problems today. feels generally exhausted and not well. no specific new complaints. tolerating Jevity 1.5 - some cramps. ID note appreciated. AVSS. comfortable. face less gaunt. abd soft. drains all secure. ileostomy thick succus. pigtail still murky. slow progress. will need cont ABX and drainage until abscess/fistula closed - anticipate 1-2 weeks on fistula assuming continued ileostomy decompression and better nutrition. gastric emptying study extremely encouraging (stomach also noted to be much smaller on her current CT compared to prior imaging). ok to try to increase po as able. needs to keep ambulating - apprec PT assist. discussed intermediate accountant care goals at home - family extremely attentive and willing/able to help here. hope to be discharged by this weekend - her fiance will be home for the month to help as well. No new overnight events. Drain pain mostly especially with flushing. Nausea / emesis persists - volume not documented. Multiple phone tags with can washer yesterday. Cx - Kleb and enterococcus. Labs - NINI Ab neg ([facility]). Nuc emptying study - normal emptying ([facility]) - patient states that she was told differently - i spoke with [facility] rads - normal 4 hour empty time discussed. AVSS. dry oral mucosa. abd soft. pigtail with slightly turbid fluid today. ileostomy thick succus - irrigated. incisions clean. J and G tube secure. discussed case with ID - will request further med reccs. LVM for can washer to discuss tube feed alternative. intriguingly normal 4 hour gastric empty time - cont supportive care for now here, normal autoimmune markers. cont IVF for hydration needs. cont PT. fiance present throughout our discussion RLQ pain from abscess better - drain pain mostly. constant nausea/heaving overnight - requires venting gastrostomy for relief with antiemetics. no other new issues. afebrile. alert, appropriate, pale. abd soft. pigtail irrigated - murky sang fluid. ileostomy thick, appropriate. albumin 2.6, prealb 17, >4. difficult situation. severe protein calorie malnutrition, ileostomy pouch fistula/abscess now drained - suspect will close with continued drainage of both abscess and pouch-will cont zosyn for now. continued profound gastroparesis - await emptying study results - will place cath to drainage for symptomatic relief. discussed additional nutritional strategies - she is willing to try other formula option - casein created nausea on prior testing in her teens - may be able to provide more effective calories through other means ( vs possible TPN if necessary) - her weight loss and continued clinical appearance decline is worrisome. add PT to help with activity. add SCD for DVT prophylaxis. care plan reviewed at length with patient and father at bedside as well as nursing staff. will speak with can washer later today. interventional care plan reviewed with Dr. Montes earlier today. 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 will place ileostomy to gravity drainage and continue zosyn and pigtail management for now. patient's outpatient care needs and social situation discussed at length with father. will continue supportive care measure, drain care and ABX in hospital. requested gastric emptying study records. will await immunologic markers. will review nutritional plan with can washer tomorrow. will obtain nutritional markers in am as well. Plan: 03/02/17 23:08 03/03/17 08:30 03/04/17 10:08 03/04/17 10:24 03/05/17 18:07 Objective: Vital Signs Temp Pulse Resp BP Pulse Ox 37.2 C 87 14 113/70 95 03/05/17 16:00 03/05/17 16:00 03/05/17 16:00 03/05/17 16:00 03/05/17 16:00 Microbiology 03/02/17 15:30 Gram Stain - Final Abdomen - Aspirate Laboratory Results 03/03/17 05:30 03/03/17 05:30 03/04/17 03/05/17 03/06/17 05:59 05:59 05:59 Intake Total 4076 1813 Output Total 1408 30 Balance 2668 1783 ICD10 Worksheet Patient Problems: Problems Problem Status Onset Abdominal abscess Acute Dehydration Acute Hypochloremia Acute Near syncope Acute Shortness of breath Acute
[2017-03-05] MEDS: POTASSIUM Cl (KCl) 20 MEQ in 1/2 NS 1,000 ML IV SCH (18:37)
[2017-03-05] MEDS: CITALOPRAM 20 MG TAB TUBE SCH (21:11)
[2017-03-05] MEDS: lamoTRIgine 100 MG TAB TUBE SCH (21:11)
[2017-03-05] MEDS: ONDANSETRON 4 MG/2 ML VIAL IVP PRN (22:06)
[2017-03-06] MEDS: HYDROmorphone HCL/NS/PF 0.4 MG/2 ML SYR IV PRN ×6 (01:18→21:21)
[2017-03-06] MEDS: HYDROCOD/APAP 7.5/325 IN 15ML UDCUP TUBE PRN ×6 (02:43→23:23)
[2017-03-06] MEDS: PIPERACILLIN/TAZO 3.375 GM/DEX 50 ML IV SCH ×4 (04:51→23:25)
[2017-03-06 05:14] LABS: ANION GAP 6 mEq/L (8-16); CARBON DIOXIDE 30 mEq/l (22-31); CHLORIDE 105 mEq/L (97-110); CREATININE 0.5 mg/dL (0.6-1.0); GLOMERULAR FILTRATION RATE > 60; GLUCOSE 94 mg/dL (70-100); POTASSIUM 4.3 mEq/L (3.5-5.2); SODIUM 141 mEq/L (134-144)
[2017-03-06] MEDS: LANSOPRAZOLE SUSP 30MG/10ML UDSYR (Adult) PO SCH ×2 (09:39→21:25)
[2017-03-06] MEDS: ASCORBIC ACID 500 MG TAB PO SCH (09:39)
[2017-03-06] MEDS: KETOROLAC 15 MG/1 ML SDV IVP PRN (15:04)
--- NOTE | 2017-03-06 16:56 | PCMIDPN ---
Assessment/Plan: Assessment: Pelvic abscess- secondary to gastrointestinal bacteria. 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 Cultures of abscess fluid show Klebsiella pneumoniae and enterococcus faecalis. Patient is being treated with Zosyn monotherapy and this correlates with the sensitivity panels. She continues to not feel clinically well. It may still be too early in the process at this point to expect improvement. Will continue to follow along. Plan: 1. Continue Zosyn monotherapy. 2. Follow clinical course. 03/06/17 16:53 Subjective: Patient is resting in her hospital bed. She has no new complaints. The change in tube feeds did not go well for her today. It caused more abdominal pain and stomach distension so they are switching back. No fevers or chills. Objective: Zosyn #2 Vital Signs Temp Pulse Resp BP Pulse Ox 36.9 C 67 12 107/56 L 94 03/06/17 08:00 03/06/17 12:00 03/06/17 12:00 03/06/17 12:00 03/06/17 12:00 Microbiology 03/02/17 15:30 Gram Stain - Final Abdomen - Aspirate Laboratory Results 03/03/17 05:30 03/06/17 04:50 03/05/17 03/06/17 03/07/17 05:59 05:59 05:59 Intake Total 1813 1927 Output Total 30 Balance 1783 1927 C-Reactive Protein 43.1 mg/L (<10.0) H 03/03/17 05:30 - Physical Exam General Appearance: WD/WN, alert, thin, non-toxic Respiratory: lungs clear, normal breath sounds, No respiratory distress Cardiac/Chest: regular rate, rhythm, No tachycardia Abdomen: soft, No non-tender, No mass Skin: normal color, No rash Neuro/Psych: alert, normal mood/affect, oriented x 3 ICD10 Worksheet Patient Problems: Problems Problem Status Onset Abdominal abscess Acute Dehydration Acute Hypochloremia Acute Near syncope Acute Shortness of breath Acute
--- NOTE | 2017-03-06 18:11 | ASMTCMCOM ---
CM Note CM Note Notes: At time of last d/c, Pt. open w/ [facility] . In case they didn't know about admission, SWer called after hours today to let them know. Answering service said she would let staff know "in morning meeting" tomorrow. Gloriar attempted to contact [facility]'s Leticia to also check in . The voicemail box was full. [facility] continues w/ [facility] care - Nancy rodriguez Pt. is hospitalized again. Per RN, Pt. on Vivonex at this time. Dr. Yao states might d/c Friday or Friday. Date Signed: 03/06/2017 06:10 PM Electronically Signed By:Melyssa Silva LCSW
--- NOTE | 2017-03-06 18:33 | SOAPPROG ---
SOAP Progress Note Assessment/Plan: Assessment: unable to tolerate jevity secondary to cramps - switching to vivonex. drain with min output. unable to tolerate a mir chip earlier today - she did not quantify the gtube output when burping her tube. no other issues. afebrile. face appears bello. abd soft. drains all unchanged. slow progress. will study fistula in am - discussed with ID - if fistula closed / source control obtained - can switch to po augmentin (which will help dc planning immensely). will still need IVF. dietary looking into additional complete nutritional options. hope to dc tomorrow or friday. fiance/and family in law at bedside - all extremely in tune to her care needs. plan discussed with case management director as well. no new problems today. feels generally exhausted and not well. no specific new complaints. tolerating Jevity 1.5 - some cramps. ID note appreciated. AVSS. comfortable. face less gaunt. abd soft. drains all secure. ileostomy thick succus. pigtail still murky. slow progress. will need cont ABX and drainage until abscess/fistula closed - anticipate 1-2 weeks on fistula assuming continued ileostomy decompression and better nutrition. gastric emptying study extremely encouraging (stomach also noted to be much smaller on her current CT compared to prior imaging). ok to try to increase po as able. needs to keep ambulating - apprec PT assist. discussed snf care goals at home - family extremely attentive and willing/able to help here. hope to be discharged by this weekend - her fiance will be home for the month to help as well. No new overnight events. Drain pain mostly especially with flushing. Nausea / emesis persists - volume not documented. Multiple phone tags with research consultant yesterday. Cx - Kleb and enterococcus. Labs - NINI Ab neg ([facility]). Nuc emptying study - normal emptying ([facility]) - patient states that she was told differently - i spoke with [facility] rads - normal 4 hour empty time discussed. AVSS. dry oral mucosa. abd soft. pigtail with slightly turbid fluid today. ileostomy thick succus - irrigated. incisions clean. J and G tube secure. discussed case with ID - will request further med reccs. LVM for research consultant to discuss tube feed alternative. intriguingly normal 4 hour gastric empty time - cont supportive care for now here, normal autoimmune markers. cont IVF for hydration needs. cont PT. fiance present throughout our discussion RLQ pain from abscess better - drain pain mostly. constant nausea/heaving overnight - requires venting gastrostomy for relief with antiemetics. no other new issues. afebrile. alert, appropriate, pale. abd soft. pigtail irrigated - murky sang fluid. ileostomy thick, appropriate. albumin 2.6, prealb 17, >4. difficult situation. severe protein calorie malnutrition, ileostomy pouch fistula/abscess now drained - suspect will close with continued drainage of both abscess and pouch-will cont zosyn for now. continued profound gastroparesis - await emptying study results - will place cath to drainage for symptomatic relief. discussed additional nutritional strategies - she is willing to try other formula option - casein created nausea on prior testing in her teens - may be able to provide more effective calories through other means ( vs possible TPN if necessary) - her weight loss and continued clinical appearance decline is worrisome. add PT to help with activity. add SCD for DVT prophylaxis. care plan reviewed at length with patient and father at bedside as well as nursing staff. will speak with research consultant later today. interventional care plan reviewed with Dr. Montes earlier today. 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 will place ileostomy to gravity drainage and continue zosyn and pigtail management for now. patient's outpatient care needs and social situation discussed at length with father. will continue supportive care measure, drain care and ABX in hospital. requested gastric emptying study records. will await immunologic markers. will review nutritional plan with research consultant tomorrow. will obtain nutritional markers in am as well. Plan: 03/02/17 23:08 03/03/17 08:30 03/04/17 10:08 03/04/17 10:24 03/05/17 18:07 03/06/17 18:13 Objective: Vital Signs Temp Pulse Resp BP Pulse Ox 36.9 C 67 12 107/56 L 94 03/06/17 08:00 03/06/17 12:00 03/06/17 12:00 03/06/17 12:00 03/06/17 12:00 Microbiology 03/02/17 15:30 Gram Stain - Final Abdomen - Aspirate Laboratory Results 03/03/17 05:30 03/06/17 04:50 03/05/17 03/06/17 03/07/17 05:59 05:59 05:59 Intake Total 1812 1926 Output Total 30 Balance 1783 192 ICD10 Worksheet Patient Problems: Problems Problem Status Onset Abdominal abscess Acute Dehydration Acute Hypochloremia Acute Near syncope Acute Shortness of breath Acute
[2017-03-06] MEDS: CITALOPRAM 20 MG TAB TUBE SCH (21:25)
[2017-03-06] MEDS: lamoTRIgine 100 MG TAB TUBE SCH (21:26)
[2017-03-06] MEDS: ONDANSETRON 4 MG/2 ML VIAL IVP PRN (23:21)
[2017-03-06] MEDS: POTASSIUM Cl (KCl) 20 MEQ in 1/2 NS 1,000 ML IV SCH (23:26)
[2017-03-07] MEDS: HYDROmorphone HCL/NS/PF 0.4 MG/2 ML SYR IV PRN ×5 (01:48→20:29)
[2017-03-07] MEDS: PIPERACILLIN/TAZO 3.375 GM/DEX 50 ML IV SCH ×3 (05:35→17:10)
[2017-03-07] MEDS: HYDROCOD/APAP 7.5/325 IN 15ML UDCUP TUBE PRN ×5 (05:39→22:10)
[2017-03-07] MEDS: LANSOPRAZOLE SUSP 30MG/10ML UDSYR (Adult) PO SCH ×2 (09:46→20:28)
[2017-03-07] MEDS: ASCORBIC ACID 500 MG TAB PO SCH (09:46)
--- NOTE | 2017-03-07 10:42 | PCMIDPN ---
Assessment/Plan: # Small superficial polymicrobial abscess with fistula into small bowel, planned fistulagram today. Abscess/fistula likely related to ileostomy catheterization per Dr. Yao. Ileostomy currently with cath in place. RLQ STEVE drain with serous fluid. Suspect majority of infection treated with drainage. --if changed to PO would recommended liquid augmentin and patient would have to agree to not empting G tube following intake. --recommend short course of antibiotics # Weight loss #20 since summer meds zosyn 3.375gm IV q6h, #5, started 03/02/17 Subjective: patient still with some abdominal pain tolerating TF does not feel that can cope with the 5 drains present today gets 2L IVF when at home Objective: Vital Signs Temp Pulse Resp BP Pulse Ox 36.8 C 59 L 18 105/52 L 93 03/07/17 08:00 03/07/17 08:00 03/07/17 08:00 03/07/17 08:00 03/07/17 08:00 Microbiology 03/02/17 15:30 Gram Stain - Final Abdomen - Aspirate Laboratory Results 03/03/17 05:30 03/06/17 04:50 03/06/17 03/07/17 03/08/17 05:59 05:59 05:59 Intake Total 1927 0 Balance 1927 0 C-Reactive Protein 43.1 mg/L (<10.0) H 03/03/17 05:30 - Physical Exam General Appearance: alert, thin EENT: pale conjunctiva, No thrush Respiratory: lungs clear, No accessory muscle use Cardiac/Chest: regular rate, rhythm Extremities: No pedal edema Abdomen: normal bowel sounds (slight decreased), non-tender, soft, other (RLQ STEVE drain serous fluid; ileostomy catheterized with green liquid stool in bag; L G tube) Skin: pallor, No diaphoresis Neuro/Psych: alert, oriented x 3, depressed affect - Line/s RUE PICC Lines: No drainage, No erythema - Time Spent With Patient Time Spent with Patient: greater than 35 minutes Time Spent with Patient: Greater than 35 minutes spent on this patients care, greater than 50% of time spent counseling, educating, and coordinating care regarding the above mentioned plan. ICD10 Worksheet Patient Problems: Problems Problem Status Onset Abdominal abscess Acute Dehydration Acute Hypochloremia Acute Near syncope Acute Shortness of breath Acute
[2017-03-07] MEDS: POTASSIUM Cl (KCl) 20 MEQ in 1/2 NS 1,000 ML IV SCH (11:26)
--- NOTE | 2017-03-07 17:26 | SOAPPROG ---
SOAP Progress Note Assessment/Plan: Assessment: fistulagram with decrease abscess size - track still present. tolerating vivonex. minimal po tolerance. no other new complaints. avss. appears better hydrated, pupils alert. abd soft. drains all secure. ID input appreciated. will plan for dc home this weekend, likely friday. discussed dc planning needs with case coordinator - has 3 home care companies to assist with IVF, enteral nutrition, and home care. will try to arrange for loan closet walker to assist with leaving house. discussed fistula management strategies. 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 discussed possible stomach motility future options - may need UGI for further assessment as nuclear emptying does not appear to correlate with her current symptoms - none of this will be attempted until fistula resolved. will dc with po augmentin elixir. will continue with weekly office follow-ups. care plan reviewed with mirella, CM, patient and mom, and nursing staff. unable to tolerate jevity secondary to cramps - switching to vivonex. drain with min output. unable to tolerate a mir chip earlier today - she did not quantify the gtube output when burping her tube. no other issues. afebrile. face appears bello. abd soft. drains all unchanged. slow progress. will study fistula in am - discussed with ID - if fistula closed /source control obtained - can switch to po augmentin (which will help dc planning immensely). will still need IVF. dietary looking into additional complete nutritional options. hope to dc tomorrow or friday. fiance/and family in law at bedside - all extremely in tune to her care needs. plan discussed with case coordinator as well. no new problems today. feels generally exhausted and not well. no specific new complaints. tolerating Jevity 1.5 - some cramps. ID note appreciated. AVSS. comfortable. face less gaunt. abd soft. drains all secure. ileostomy thick succus. pigtail still murky. slow progress. will need cont ABX and drainage until abscess/fistula closed - anticipate 1-2 weeks on fistula assuming continued ileostomy decompression and better nutrition. gastric emptying study extremely encouraging (stomach also noted to be much smaller on her current CT compared to prior imaging). ok to try to increase po as able. needs to keep ambulating - apprec PT assist. discussed group home care goals at home - family extremely attentive and willing/able to help here. hope to be discharged by this weekend - her fiance will be home for the month to help as well. No new overnight events. Drain pain mostly especially with flushing. Nausea / emesis persists - volume not documented. Multiple phone tags with performance specialist yesterday. Cx - Kleb and enterococcus. Labs - NINI Ab neg ([facility]). Nuc emptying study - normal emptying ([facility]) - patient states that she was told differently - i spoke with [facility] rads - normal 4 hour empty time discussed. AVSS. dry oral mucosa. abd soft. pigtail with slightly turbid fluid today. ileostomy thick succus - irrigated. incisions clean. J and G tube secure. discussed case with ID - will request further med reccs. LVM for performance specialist to discuss tube feed alternative. intriguingly normal 4 hour gastric empty time - cont supportive care for now here, normal autoimmune markers. cont IVF for hydration needs. cont PT. fiance present throughout our discussion RLQ pain from abscess better - drain pain mostly. constant nausea/heaving overnight - requires venting gastrostomy for relief with antiemetics. no other new issues. afebrile. alert, appropriate, pale. abd soft. pigtail irrigated - murky sang fluid. ileostomy thick, appropriate. albumin 2.6, prealb 17, >4. difficult situation. severe protein calorie malnutrition, ileostomy pouch fistula/abscess now drained - suspect will close with continued drainage of both abscess and pouch-will cont zosyn for now. continued profound gastroparesis - await emptying study results - will place cath to drainage for symptomatic relief. discussed additional nutritional strategies - she is willing to try other formula option - casein created nausea on prior testing in her teens - may be able to provide more effective calories through other means ( vs possible TPN if necessary) - her weight loss and continued clinical appearance decline is worrisome. add PT to help with activity. add SCD for DVT prophylaxis. care plan reviewed at length with patient and father at bedside as well as nursing staff. will speak with performance specialist later today. interventional care plan reviewed with Dr. Montes earlier today. 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 will place ileostomy to gravity drainage and continue zosyn and pigtail management for now. patient's outpatient care needs and social situation discussed at length with father. will continue supportive care measure, drain care and ABX in hospital. requested gastric emptying study records. will await immunologic markers. will review nutritional plan with performance specialist tomorrow. will obtain nutritional markers in am as well. Plan: 03/02/17 23:08 03/03/17 08:30 03/04/17 10:08 03/04/17 10:24 03/05/17 18:07 03/06/17 18:13 03/07/17 17:22 Objective: Vital Signs Temp Pulse Resp BP Pulse Ox 36.8 C 59 L 18 105/52 L 93 03/07/17 08:00 03/07/17 08:00 03/07/17 08:00 03/07/17 08:00 03/07/17 08:00 Microbiology 03/02/17 15:30 Gram Stain - Final Abdomen - Aspirate Laboratory Results 03/03/17 05:30 03/06/17 04:50 03/06/17 03/07/17 03/08/17 05:59 05:59 05:59 Intake Total 1927 0 2890 Balance 1927 0 2890 ICD10 Worksheet Patient Problems: Problems Problem Status Onset Abdominal abscess Acute Dehydration Acute Hypochloremia Acute Near syncope Acute Shortness of breath Acute
--- NOTE | 2017-03-07 17:45 | ASMTCMCOM ---
CM Note CM Note Notes: SWer confirmed today that [facility], [facility], and [facility] are ready to receive Pt. into care at d/c. See previous note for phone numbers. Pt. will return to her fiance's family's home at d/c: [address] [place] [address]. Pt's cell: . Met w/ Pt. and her mother Jessica in room. Provided loan closet information for a temporary wheelchair for Pt. Possible that Pt. may need IV antibiotics at d/c. Please contact [facility] for this service if needed. [facility] already aware of possibility. Consulted with , RN, Pt, and mother, Jessica. Date Signed: 03/07/2017 05:45 PM Electronically Signed By:Melyssa Silva LCSW
[2017-03-07] MEDS: CITALOPRAM 20 MG TAB TUBE SCH (20:28)
[2017-03-07] MEDS: lamoTRIgine 100 MG TAB TUBE SCH (20:29)
[2017-03-08] MEDS: PIPERACILLIN/TAZO 3.375 GM/DEX 50 ML IV SCH ×5 (00:31→23:59)
[2017-03-08] MEDS: HYDROmorphone HCL/NS/PF 0.4 MG/2 ML SYR IV PRN ×6 (00:32→23:59)
[2017-03-08] MEDS: HYDROCOD/APAP 7.5/325 IN 15ML UDCUP TUBE PRN ×5 (02:55→22:13)
[2017-03-08] MEDS: LANSOPRAZOLE SUSP 30MG/10ML UDSYR (Adult) PO SCH ×2 (08:31→20:06)
[2017-03-08] MEDS: ASCORBIC ACID 500 MG TAB PO SCH (08:31)
--- NOTE | 2017-03-08 13:30 | SOAPPROG ---
SOAP Progress Note Assessment/Plan: Assessment/Plan: 21yo female with complex abdominal dysmotility issues following total colectomy and continent ileostomy. Readmitted for FTT, urosepsis, pouch fistula Drainage by IR of abscess likely due to traumatic ileostomy intubation. Minimal output from fistula Recent G tube, J tube and gastrojejunostomy Copious fluid/electrolyte losses due to high G tube and ileostomy output Normal Nuc med gastric emptying study this admission Urine with Klebsiella and enterococcus on Zosyn afebrile. ID recc to d/c on oral augmentin Case management notes reviewed OOB Tolerating vivonex Incisions c/d Good spirits first good day no emesis took in some po yesterday g-tube decompression prn Disposition planning to [facility] home with home health when able 03/08/17 13:24 Objective: Vital Signs Temp Pulse Resp BP Pulse Ox 36.6 C 65 18 113/54 L 94 03/08/17 08:00 03/08/17 08:00 03/08/17 08:00 03/08/17 08:00 03/08/17 08:00 Microbiology 03/02/17 15:30 Gram Stain - Final Abdomen - Aspirate Laboratory Results 03/03/17 05:30 03/06/17 04:50 03/07/17 03/08/17 03/09/17 05:59 05:59 05:59 Intake Total 0 4900 Output Total 425 Balance 0 4475 ICD10 Worksheet Patient Problems: Problems Problem Status Onset Abdominal abscess Acute Dehydration Acute Hypochloremia Acute Near syncope Acute Shortness of breath Acute
[2017-03-08 15:35] VITALS: TEMP 98.1
[2017-03-08] MEDS: POTASSIUM Cl (KCl) 20 MEQ in 1/2 NS 1,000 ML IV SCH (15:37)
--- NOTE | 2017-03-08 16:23 | PCMIDPN ---
Assessment/Plan: Assessment: Pelvic abscess- secondary to gastrointestinal bacteria. 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 Cultures of abscess fluid show Klebsiella pneumoniae and enterococcus faecalis. Patient is being treated with Zosyn monotherapy and this correlates with the sensitivity panels. Patient seems to be doing a little bit better today. The plan would be to switch her to Augmentin liquid solution that would go down her PEJ tube for continued treatment of the abscess/fistula until closure. Meanwhile continue Zosyn. Plan: 1. Continue Zosyn monotherapy. 2. Follow clinical course. 03/06/17 16:53 03/08/17 18:05 Subjective: Patient remains in good spirits. No new complaints. Denies fevers or chills. Continues to have output from her drain. Objective: Zosyn Vital Signs Temp Pulse Resp BP Pulse Ox 36.7 C 65 18 104/67 95 03/08/17 15:33 03/08/17 15:33 03/08/17 15:33 03/08/17 15:33 03/08/17 15:33 Microbiology 03/02/17 15:30 Gram Stain - Final Abdomen - Aspirate Laboratory Results 03/03/17 05:30 03/06/17 04:50 03/07/17 03/08/17 03/09/17 05:59 05:59 05:59 Intake Total 0 4900 Output Total 425 Balance 0 4475 C-Reactive Protein 43.1 mg/L (<10.0) H 03/03/17 05:30 - Physical Exam General Appearance: WD/WN, alert, no apparent distress, thin Skin: normal color, warm/dry, No rash Neuro/Psych: alert, normal mood/affect, oriented x 3 ICD10 Worksheet Patient Problems: Problems Problem Status Onset Abdominal abscess Acute Dehydration Acute Hypochloremia Acute Near syncope Acute Shortness of breath Acute
[2017-03-08] MEDS: CITALOPRAM 20 MG TAB TUBE SCH (20:07)
[2017-03-08] MEDS: lamoTRIgine 100 MG TAB TUBE SCH (20:07)
[2017-03-08 23:12] VITALS: O2SAT 96
[2017-03-09] MEDS: HYDROCOD/APAP 7.5/325 IN 15ML UDCUP TUBE PRN ×4 (02:30→14:38)
[2017-03-09] MEDS: HYDROmorphone HCL/NS/PF 0.4 MG/2 ML SYR IV PRN ×3 (04:03→12:45)
[2017-03-09] MEDS: POTASSIUM Cl (KCl) 20 MEQ in 1/2 NS 1,000 ML IV SCH (06:07)
[2017-03-09] MEDS: PIPERACILLIN/TAZO 3.375 GM/DEX 50 ML IV SCH ×2 (06:27→13:23)
[2017-03-09 07:56] VITALS: BP 105/74; PULSE 76; RESP 18
[2017-03-09] MEDS: LANSOPRAZOLE SUSP 30MG/10ML UDSYR (Adult) PO SCH (08:03)
[2017-03-09] MEDS: ASCORBIC ACID 500 MG TAB PO SCH (11:14)
--- NOTE | 2017-03-09 11:18 | PDIAF ---
- Diagnosis Diagnosis: enterocutaneous fistula, gastroparesis Code Status: Full Code - Medication Management Discharge Medications: Medications to Continue on Transfer Ascorbic Acid [Vitamin C 500 mg (*)] 500 mg PO DAILY 12/03/16 [Last Taken ] Citalopram [CeleXA 20 MG] 20 mg TUBE HS 12/03/16 [Last Taken 03/01/17] lamoTRIgine [LamICTAL 100 MG (*)] 100 mg TUBE HS 12/03/16 [Last Taken 03/01/17] Ondansetron Odt [Zofran Odt 4 mg (*)] 4 mg SL Q4 PRN 01/29/17 [Last Taken 22:00 4 mg] Dicyclomine [Bentyl 10 MG (*)] 20 mg TUBE Q4H PRN 02/03/17 [Last Taken 02/28/17] Multivitamins [Multivitamin (*)] 1 each TUBE DAILY 02/03/17 [Last Taken 02/28/17 ] Alteplase [Cathflo Activase 2 mg (*)] 2 mg IVP PRN PRN vial 02/06/17 [Last Taken Unknown] Lansoprazole [PREVACID 30mg/10ml susp (Adult) (*)] 30 mg PO BID #600 ml [Last Taken 03/01/17] Ns [NS IV 1000ml (*)] 1,000 ml IV DAILY 03/02/17 [Last Taken 03/01/17] 1/2 Ns [1/2 Ns 1000 ML (RX)] 75 ml IV CONT 14 Days #28 bag 03/09/17 [Last Taken Unknown] Amox Tr/Potassium Clavulanate [Augmentin 400MG/5ML (*)] 400 mg TUBE BID 20 Days #200 ml 03/09/17 [Last Taken Unknown] Intermediate Antibiotics: Augmentin Intermediate Antibiotic Stop Date: 03/23/17 (subject to change per ID) Discharge Medications: Refer to the Discharge Home Medication list for PRN reason. - Orders Services needed: Home [facility] Care Face to Face: I certify that this patient was under my care and that I had the required [id number] encounter meeting the encounter requirements on the discharge day. My findings support the fact that the patient is homebound as defined in Home Care Face to Face Continued: [facility] Chapter 7 Medicare Benefits Manual 30.1.1 , The condition of the patient is such that there exists a normal inability to leave home and consequently, leaving home would require a considerable and taxing effort. Isolation Type: None Diet Recommendation: no restrictions on diet, other (Vivonex tube feeds 65 ml/hr ) Diet Texture: Regular Texture Diet Tube feeding: vivonex 65 ml/hr via J-Tube Weigh Patient: weekly Wound Care Instructions: Flush timo with 10 cc ns/water bid - Follow Up Care Current Providers and Referrals: Patient,NotPresent [Primary Care Provider] - Richy Yao MD [Medical Doctor] - follow up in 10 days
--- NOTE | 2017-03-09 16:30 | ASDISCHSUM ---
Discharge Information Plan Status:Home with Home Health Medically Cleared to Leave:03/08/2017 Discharge Date:03/09/2017 02:55 PM D/C Disposition: ADT D/C Disposition:[id number] Projected Discharge Date:03/09/2017 11:00 AM Transportation at D/C: Discharge Delay Reason: Follow-Up Date:03/09/2017 11:00 AM Discharge Slot: Final Diagnosis: Placement Information Referral Type:*Home Health Care Services Referral ID:[id number] Provider Name:[facility] Address 1:[address] Address 2: City:[facility] Selection Factors: State:[place] Referral Type:Home Infusion Referral ID:[id number] Provider Name:[facility] Address 1:[address] Address 2: City: Selection Factors: State:[place] Referral Type:Home Infusion Referral ID:[id number] Provider Name:[facility] - Address 1:[address] Phone Number: Address 2: Fax Number: City: Selection Factors: State:[place] Patient Contact Information Contact Name:AGUILAR Relationship:Other Address: Work Phone: City: [facility] Phone: [facility] Code: Email: Financial Information Financial Class:HMO and PPO Plans Primary Plan Desc: OUT OF STATE PPO Primary Plan Number:[id number] Secondary Plan Desc:[place] Secondary Plan Number:[id number] Assessment Information [facility] CM Progress Note CM Note CM Note Notes: Pt admitted w/ an abdominal pelvic abscess. Pt transferred from [facility] in [facility]. Pt well-known to , long GI history w/ multiple surgeries. Per notes, abscess drained today in IR. Pt to have further GI studies and workup. Discharge needs remain TBD at this time. CM will cont to follow. Current discharge plan: TBD Date Signed: 03/02/2017 04:33 PM Electronically Signed By:Ashleigh Jiménez RN [facility] CM Progress Note CM Note CM Note Notes: Patient's weight loss and decline in her clinical appearance is worrisome. Nutritional strategies are being reviewed and PT has been ordered to help with activity. Patient's ileostomy pouch fistula/abcess is drained. Continue with ABX in hospital. Patient had been at her boyfriend's home in [facility] where there is someone home 24 hours a day. She is planning to return there with supportive services (home health) at d/c. CM will follow. Date Signed: 03/03/2017 10:24 AM Electronically Signed By:Jennifer Hernandez LCSW [facility] NIKKY Progress Note CM Note CM Note Notes: Attempted several times to meet with patient and her fiance today to learn more about the home situation and how care is being handled there. However, it did not work out today.Patient is taking a nutritional formula that should be helping her gain weight, however, patient has lost another 1 pound. Patient's needs may be different than home care at this d/c depending on the progress she makes during the course of treatment during this hospitalization. Home Care is already in place for patient. D/C needs remain TBD at this time. CM will follow. Date Signed: 03/04/2017 05:12 PM Electronically Signed By:Jennifer Hernandez LCSW [facility] Progress Note CM Note CM Note Notes: At time of last d/c, Pt. open w/ [facility] . In case they didn't know about admission, SWer called after hours today to let them know. Answering service said she would let staff know "in morning meeting" tomorrow. SWer attempted to contact [facility] Leticia to also check in . The voicemail box was full. [facility] continues w/ [facility] care - Nancy rodriguez Pt. is hospitalized again. Per RN, Pt. on Vivonex at this time. Dr. Yao states might d/c Friday or Friday. Date Signed: 03/06/2017 06:10 PM Electronically Signed By:Melyssa Silva LCSW [facility] Progress Note CM Note CM Note Notes: SWer confirmed today that [facility], [facility], and [facility] are ready to receive Pt. into care at d/c. See previous note for phone numbers. Pt. will return to her fiance's family's home at d/c: [address] [place] [address]. Pt's cell: . Met w/ Pt. and her mother Jessica in room. Provided loan closet information for a temporary wheelchair for Pt. Possible that Pt. may need IV antibiotics at d/c. Please contact [facility] for this service if needed. [facility] already aware of possibility. Consulted with , RN, Pt, and mother, Jessica. Date Signed: 03/07/2017 05:45 PM Electronically Signed By:Melyssa Silva LCSW Case Management Discharge Plan Note Case Management Discharge Discharge Order Complete? Answers: Yes Patient to Obtain Answers: via Family Medications Transportation Arranged Answers: Family/Friends EMTALA Complete Answers: No Case Management Transport Answers: Yes Form Complete Faxed Final Orders Answers: Yes Agency/Facility Transfer Answers: Yes Report Printed & Faxed to Receiving Agency Family Notified Answers: No Discharge Comments Notes: CM spoke w/ Dr. Monaco and DONNIE Keith regarding d/c POC. CM met w/ pt and pts fiance for dispo planning. Pt is being discharged home today to [place] w/ her fiance. CM sent d/c orders to [facility], [facility] and [facility] home infusion. CM spoke w/ representatives from [facility], [facility] and [facility]. [facility] is able to have pts regular nurse Dian come at 5 PM. CM scheduled for [facility] to have liquid Augmentin and IV fluids to be delivered at 5PM as well. Pt will discharge w/ liquid Augmentin BID. DONNIE Keith will do the teaching to administer liquid Augmentin for pt to administer at home. Pt will receive 2L of IV fluids continuous. CM available for changes. Plan: Augmentin to self administer, [facility] HC; RN for oversight, [facility] home infusion for feeding supplies which was delivered on 02/14/17 which pt has a month supply of Date Signed: 03/09/2017 11:51 AM Electronically Signed By:BRENDA Farah Intervention Information
[2017-03-09] MEDS ORDERED: LANSOPRAZOLE SUSP 30MG/10ML UDSYR (Adult) TUBE SCH (21:00)
[2017-03-10] MEDS ORDERED: ASCORBIC ACID 500 MG TAB TUBE SCH (09:00)
== END 2017-03-09 14:55 | disposition home health service (06) | DRG 393 ==
LOC: F3E 03:11
PROVIDERS: ADMIT Surgery; ATTEND Surgery
DX: K94.12 Enterostomy infection (principal); E43 Unspecified severe protein-calorie malnutrition; B96.1 Klebsiella pneumoniae [K. pneumoniae] as the cause of diseases classified elsewhere; B95.2 Enterococcus as the cause of diseases classified elsewhere; K63.2 Fistula of intestine; K31.84 Gastroparesis; E86.0 Dehydration; E87.6 Hypokalemia; E87.8 Other disorders of electrolyte and fluid balance, not elsewhere classified; K59.8 Other specified functional intestinal disorders; D89.9 Disorder involving the immune mechanism, unspecified; Z79.2 Long term (current) use of antibiotics; Z93.2 Ileostomy status; Z93.1 Gastrostomy status; Z93.4 Other artificial openings of gastrointestinal tract status; Z90.49 Acquired absence of other specified parts of digestive tract
CPT/HCPCS: 84134-90; 84466-90; 97116-GP; 97162-GP; C1729; J0461; J1170; J1644; J1885; J2250; J2310; J2405; J2543; J2997; J3010; Q9967

== ENCOUNTER 2017-03-26 06:41 | Day surgery (SDC) | payer BC, MEDICAID ==
[2017-03-26] MEDS ORDERED: MIDAZOLAM 2 MG/2 ML VIAL IVP PRN (07:09)
[2017-03-26] MEDS ORDERED: fentaNYL 100 MCG/2 ML INJ IVP PRN (07:09)
[2017-03-26] MEDS ORDERED: NALOXONE HCL 0.4 MG/ML INJ IVP PRN (07:09)
[2017-03-26] MEDS ORDERED: FLUMAZENIL 0.5 MG/5 ML MDV IVP PRN (07:09)
[2017-03-26] MEDS ORDERED: NS 1,000 ML IV SCH (07:15)
[2017-03-26] MEDS ORDERED: ONDANSETRON 4 MG/2 ML VIAL ONE (07:37)
[2017-03-26 07:44] LABS: INR 1.1 (0.83-1.16); PROTIME(PATIENT) 14.4 SEC (12.0-15.0)
[2017-03-26 07:48] VITALS: PULSE 80; RESP 16; TEMP 99.7
--- NOTE | 2017-03-26 08:32 | PDGENHP ---
History & Physical Chief Complaint: Right lower quadrant pain History of Present Illness: Abscess and fistula to small bowel. Pertinent Past, Social, Family History: Previous abscess drainage by me on March 02. Handled sedation well. Relevant Physical Exam: T 101. Cardiorespiratory Assessment: Lungs: clear to auscultation. Heart: RRR, no murmur, 64 bpm.
[2017-03-26] MEDS ORDERED: ONDANSETRON 4 MG/2 ML VIAL IVP ONE (08:45)
[2017-03-26] MEDS ORDERED: THROMBIN(HUM PLAS)/FIBRINOG/CA 5 ML VIAL TP ONE (08:52)
[2017-03-26] MEDS ORDERED: HYDROGEN PEROXIDE 236 ML BOTTLE TP ONE (08:52)
[2017-03-26] MEDS ORDERED: PROMETHAZINE HCL 25 MG/ML INJ ONE (09:46)
[2017-03-26] MEDS ORDERED: HYDROmorphONE/DILAUDID 2 MG/ML INJ ONE (10:06)
[2017-03-26] MEDS ORDERED: IOPAMIDOL (ISOVUE-300) 100 ML BTL ONE (10:27)
[2017-03-26] MEDS ORDERED: ACETAMINOPHEN 325 MG TAB PO PRN (10:31)
[2017-03-26] MEDS ORDERED: ONDANSETRON 4 MG/2 ML VIAL IVP PRN (10:31)
--- NOTE | 2017-03-26 10:31 | PDRADPN ---
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 Inf/Abcess present in the surg proc area at time of surgery?: Yes Depth: Deep Incisional (Fascial) EBL: Minimal Complications: 0 Specimen(s): 0
[2017-03-26 11:13] VITALS: BP 101/63; O2SAT 93
[2017-03-26] MEDS ORDERED: OXYCODONE/APAP 5/325MG PREPACK#4 BTL TAKEHOME ONE (11:17)
== END 2017-03-26 11:52 | disposition home or self-care (01) ==
LOC: FIMAGING 06:41
PROVIDERS: ATTEND Surgery
PROC: 0DL Gastrointestinal System, Occlusion (ICD-10-PCS; principal; 2017-03-26 10:36)
DX: K63.2 Fistula of intestine (principal); R10.31 Right lower quadrant pain; K59.8 Other specified functional intestinal disorders
CPT/HCPCS: 44650; 75989; 99152; 99153; C1769; C1894; J0696; J1170; J1644; J2250; J2310; J2405; J2550; J3010; Q9967

== ENCOUNTER 2017-04-04 12:11 | Inpatient (IN) | payer BC, MEDICAID ==
[2017-04-04] MEDS ORDERED: KETOROLAC 30 MG/1 ML SDV IVP PRN (14:12)
[2017-04-04] MEDS ORDERED: KETOROLAC 15 MG/1 ML SDV IVP PRN (14:18)
[2017-04-04] MEDS: D5W 1/2 NS W/ 20 KCl/L 1,000 ML IV SCH ×3 (14:34→23:21)
[2017-04-04 15:24] LABS: PLATELET COUNT 404 10^3/uL (150-400)
[2017-04-04] MEDS ORDERED: ALTEPLASE 2 MG VIAL IVP PRN (17:10)
[2017-04-04] MEDS ORDERED: DICYCLOMINE 10 MG CAP TUBE PRN (17:10)
[2017-04-04] MEDS ORDERED: oxyCODONE IR 15 MG TAB TUBE PRN (17:12)
[2017-04-04] MEDS: ERTAPENEM 1 GM VIAL IVP SCH (17:48)
--- NOTE | 2017-04-04 18:14 | GHP ---
[f rep st] PREOP HISTORY AND PHYSICAL DATE OF ADMISSION: 04/04/2017 REASON FOR ADMISSION: Fever, hypokalemia. HISTORY OF PRESENT ILLNESS: 21-year-old female with a complicated medical history, please refer to prior admissions. 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 She has undergone extensive abdominal surgeries and hospitalizations related to the above. Her current anatomy consists of a total abdominal colectomy with continent ileostomy, feeding jejunostomy, decompressive gastrojejunostomy, and G -tube. She has been admitted extensively over the last number of months related to dehydration, malnutrition, profound gastroparesis, as well as SMA syndrome and others. She is currently maintaining herself at home with continuous J-tube feeds, daily IV fluid challenges of 2-3 L, and potassium supplementation. She also was significantly admitted with a fistula related to her prior continent ileostomy. This was injected last week with fibrin glue and has remained subsequently closed. Over the last week and a half, the patient has been suffering from worsening malaise, body aches, fevers up to 103. She has been tolerating her J-tube feeds reasonably well. She has progressive nausea and vomiting despite venting her G-tube daily and is generally failing to thrive with a miserable quality of life. Laboratory assessment via her home nursing was obtained yesterday, disclosing a first-time significant elevation in her alkaline phosphatase and transaminases with a leukocytosis of 13,000 and a potassium of 2.6. She is being admitted for further workup and treatment for her fever, hypokalemia, and elevated liver enzymes. Suspected PICC line sepsis is being entertained as well as consideration for a gastrectomy with reconstruction for her intractable gastroparesis. 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 PAST SURGICAL HISTORY: Multiple exploratory laparotomies with colectomies, reanastomoses, anastomotic leaks, reexploration for infection, most recently with a total abdominal colectomy with continent ileostomy, gastrojejunostomy, PEG tube placement, feeding J-tube placement. MEDICATIONS: Celexa, lamotrigine, [employer] tube feeds, vitamin C, Prevacid, Ativan p.r.n., Bentyl p.r.n., Lortab p.r.n., potassium chloride daily. ALLERGIES: Mustard, casein. SOCIAL HISTORY: No alcohol, no tobacco. 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 She is engaged to [employer]. FAMILY HISTORY: Noncontributory. REVIEW OF SYSTEMS: Notable for above GI concerns, prior history of eating disorder, malnutrition, anorexia, hypokalemia, and most recently fevers, malaise , headaches. PHYSICAL EXAMINATION: VITAL SIGNS: Admitting blood pressure 140/80, heart rate 110, 93% room air sat, temperature currently pending. T-max at home 103, T -max current per patient this morning 99. GENERAL: Patient is alert, appropriate. Appears ill. EYES: Anicteric. LYMPH NODES: No cervical or supraclavicular lymphadenopathy. HEART: Regular, tachycardic. LUNGS: Clear bilaterally. ABDOMEN: Soft, nontender. No right upper quadrant tenderness. Liver edge smooth. No rebound. G-tube, J-tube, ileostomy catheters all secure right lower quadrant without evidence of recurrent abscess. Midline incision nicely healed. EXTREMITIES: Without edema. Right upper extremity PICC line without tenderness. NEUROLOGIC: Alert and appropriate. BACK: Thoracic and lumbar spines nontender. LABORATORY DATA: White count 16, hemoglobin 16, platelets of 404. Electrolytes : sodium 136, potassium 4.3 (last evening 2.6), Chloride 97, CO2 22, BUN 12, creatinine 0.5, glucose 85, alkaline phosphatase 521, AST 136, ALT 128, total bilirubin 0.7. Lipase last evening normal. Blood cultures pending. IMPRESSIONS: 1. History of intestinal pseudo-obstruction with chronic progressive gastroparesis. 2. New fever, leukocytosis, elevated liver enzymes. 3. Hypokalemia-improved with potassium supplementation and fluid resuscitation. 4. Severe malnutrition. 5. Failure to thrive. PLAN: 1. The patient is being admitted for fluid resuscitation and further sepsis evaluation - query PICC line? 2. Right upper quadrant ultrasound has been ordered. 3. Repeat liver studies, urinalysis, and chest x-ray have been ordered. 4. Pending workup of above, I am strongly leaning towards pursuing a subtotal gastrectomy with a Chandler-en-Y gastrojejunostomy. The patient has been compliant with all our recommendations, measures, and medications over the last number of months. These care plan recommendations have been reviewed in detail with the patient's fiancee, in-laws, home care nurse, who all support her excellent compliance with recommendations. The patient is desirous to proceed as well. Gastric pacemaker options have been reviewed - she and her fiance are not interested in this option. 5. Final recommendations to follow. /[id number]/[facility] MTDD
[2017-04-04] MEDS: HYDROCODONE/APAP 5/325 TAB TUBE PRN (19:25)
[2017-04-04] MEDS: lamoTRIgine 100 MG TAB TUBE SCH (20:28)
[2017-04-04] MEDS: LANSOPRAZOLE SUSP 30MG/10ML UDSYR (Adult) TUBE SCH (20:28)
[2017-04-04] MEDS: CITALOPRAM 20 MG TAB TUBE SCH (20:29)
[2017-04-04] MEDS: ONDANSETRON 4 MG/2 ML VIAL IVP PRN (21:44)
[2017-04-04 22:11] LABS: HEPATITIS B SURFACE ANTIGEN NEGATIVE (NEGATIVE)
[2017-04-04 22:17] LABS: HEPATITIS A ANTIBODY IGM (BCH) NEGATIVE (NEGATIVE); HEPATITIS B CORE AB IGM NEGATIVE (NEGATIVE)
[2017-04-04 22:28] LABS: HEPATITIS C ANTIBODY TOTAL NEGATIVE (NEGATIVE)
[2017-04-05] MEDS: HYDROCODONE/APAP 5/325 TAB TUBE PRN ×2 (01:30→07:33)
[2017-04-05] MEDS: POTASSIUM CL 20 MEQ/15 ML UDCUP TUBE SCH (08:16)
[2017-04-05] MEDS: ASCORBIC ACID 500 MG TAB TUBE SCH (08:16)
[2017-04-05] MEDS: ERTAPENEM 1 GM VIAL IVP SCH (08:16)
[2017-04-05] MEDS: MULTIVITAMINS 1 EACH TAB PO SCH (08:16)
--- NOTE | 2017-04-05 11:38 | SOAPPROG ---
SOAP Progress Note Assessment/Plan: Assessment/Plan: Hospital day 2. Admitted for leukocytosis, dehydration, elevation transaminases and alkaline phosphatase Arnold Ultrasound negative Today's laboratories show continued elevation of transaminases and alkaline phosphatase. Bilirubin normal. With stasis Continued high g-tube output Alert oriented no distress Clear to auscultation Abdomen soft nontender nondistended Ileostomy intubated with normal small affluent Unclear etiology of current issue. May need gastric resection for management of high output from gastrostomy tube. Urine culture to be obtained. Avoid hepatotoxic medications. Will review nuclear medicine gastric emptying test when available. Repeat LFTs tomorrow Leukocytosis 14.9 down from 16 yesterday likely secondary to hydration. Continue to monitor continue Invanz empirically for now 04/05/17 11:34 Objective: Vital Signs Temp Pulse Resp BP Pulse Ox 37.2 C 112 H 16 107/71 95 04/05/17 07:28 04/05/17 07:28 04/05/17 07:28 04/05/17 07:28 04/05/17 07:28 Laboratory Results 04/05/17 05:10 04/05/17 05:10 04/04/17 04/05/17 04/06/17 05:59 05:59 05:59 Intake Total 2341 Output Total 1900 Balance 441 ICD10 Worksheet Patient Problems: Problems Problem Status Onset Abdominal abscess Acute Dehydration Acute Hypochloremia Acute Near syncope Acute Shortness of breath Acute
[2017-04-05] MEDS: oxyCODONE IR 5 MG TAB TUBE PRN ×4 (11:40→23:32)
[2017-04-05] MEDS: LANSOPRAZOLE SUSP 30MG/10ML UDSYR (Adult) TUBE SCH ×2 (11:44→21:38)
--- NOTE | 2017-04-05 12:01 | ASMTCMCOM ---
CM Note CM Note Notes: Patient admitted for sepsis evaluation. She has a complicated medical history. She was last discharged from [facility] 03/09/17 and has been compliant with all discharge instructions. She has been living with her fiance, receiving home health through [facility] and infusion services through [facility]. She will be followed by surgery. Case Management will follow as well. Date Signed: 04/05/2017 12:00 PM Electronically Signed By:Sarina Stacy RN
[2017-04-05] MEDS: lamoTRIgine 100 MG TAB TUBE SCH (21:38)
[2017-04-05] MEDS: CITALOPRAM 20 MG TAB TUBE SCH (21:38)
[2017-04-05] MEDS: ONDANSETRON 4 MG/2 ML VIAL IVP PRN (23:44)
[2017-04-06] MEDS: oxyCODONE IR 5 MG TAB TUBE PRN ×5 (03:34→20:19)
[2017-04-06] MEDS: ONDANSETRON 4 MG/2 ML VIAL IVP PRN ×5 (03:37→20:19)
[2017-04-06] MEDS: MULTIVITAMINS 1 EACH TAB PO SCH (08:07)
[2017-04-06] MEDS: ASCORBIC ACID 500 MG TAB TUBE SCH (08:08)
[2017-04-06] MEDS: POTASSIUM CL 20 MEQ/15 ML UDCUP TUBE SCH (08:25)
[2017-04-06] MEDS: D5W 1/2 NS W/ 20 KCl/L 1,000 ML IV SCH (08:28)
[2017-04-06] MEDS: ERTAPENEM 1 GM VIAL IVP SCH (08:40)
[2017-04-06] MEDS: LANSOPRAZOLE SUSP 30MG/10ML UDSYR (Adult) TUBE SCH ×2 (11:35→20:19)
[2017-04-06] MEDS: CITALOPRAM 20 MG TAB TUBE SCH (20:20)
[2017-04-06] MEDS: lamoTRIgine 100 MG TAB TUBE SCH (20:20)
--- NOTE | 2017-04-06 20:57 | SOAPPROG ---
SOAP Progress Note Assessment/Plan: Assessment/Plan: Hospital day 3. Admitted for leukocytosis, dehydration, elevation transaminases and alkaline phosphatase Arnold Ultrasound negative Laboratories show continued elevation of transaminases and alkaline phosphatase. Bilirubin normal. With stasis Continued high g-tube output Alert oriented no distress Clear to auscultation Abdomen soft nontender nondistended Ileostomy intubated with normal small affluent Unclear etiology of current issue. May need gastric resection for management of high output from gastrostomy tube. Urine culture to be obtained. Avoid hepatotoxic medications. Will review nuclear medicine gastric emptying test when available. Repeat LFTs/CBC tomorrow Continue to monitor continue Invanz empirically for now Consider removing PICC Discussed with pt/fiance - gastrectomy and cholecystectomy 04/06/17 20:53 Objective: Vital Signs Temp Pulse Resp BP Pulse Ox 36.9 C 89 16 90/54 L 96 04/06/17 15:12 04/06/17 15:12 04/06/17 15:12 04/06/17 15:12 04/06/17 15:12 Laboratory Results 04/05/17 05:10 04/05/17 05:10 04/05/17 04/06/17 04/07/17 05:59 05:59 05:59 Intake Total 2341 1440 70 Output Total 1900 920 250 Balance 441 520 -180 ICD10 Worksheet Patient Problems: Problems Problem Status Onset Abdominal abscess Acute Dehydration Acute Hypochloremia Acute Near syncope Acute Shortness of breath Acute
[2017-04-07] MEDS: oxyCODONE IR 5 MG TAB TUBE PRN ×4 (00:19→12:23)
[2017-04-07] MEDS: ONDANSETRON 4 MG/2 ML VIAL IVP PRN ×4 (00:20→20:15)
[2017-04-07] MEDS: D5W 1/2 NS W/ 20 KCl/L 1,000 ML IV SCH ×3 (02:22→18:41)
[2017-04-07 05:00] LABS: PLATELET COUNT 255 10^3/uL (150-400)
[2017-04-07] MEDS: MULTIVITAMINS 1 EACH TAB PO SCH (08:28)
[2017-04-07] MEDS: POTASSIUM CL 20 MEQ/15 ML UDCUP TUBE SCH (08:29)
[2017-04-07] MEDS: ASCORBIC ACID 500 MG TAB TUBE SCH (08:29)
[2017-04-07] MEDS: ERTAPENEM 1 GM VIAL IVP SCH (08:45)
[2017-04-07] MEDS: LANSOPRAZOLE SUSP 30MG/10ML UDSYR (Adult) TUBE SCH ×2 (10:54→22:13)
--- NOTE | 2017-04-07 13:02 | SOAPPROG ---
SOAP Progress Note Assessment/Plan: Assessment/Plan: Hospital day 4. Admitted for leukocytosis, dehydration, elevation transaminases and alkaline phosphatase Arnold Ultrasound negative Laboratories show continued elevation of transaminases and alkaline phosphatase. Bilirubin normal. With stasis Continued high g-tube output Alert oriented no distress Clear to auscultation Abdomen soft nontender nondistended Ileostomy intubated with normal small affluent Unclear etiology of current issue. May need gastric resection for management of high output from gastrostomy tube. Urine culture to be obtained. Avoid hepatotoxic medications. Will review nuclear medicine gastric emptying test when available. MRCP considered d/w radiology of limited value given normal u/s Continue to monitor continue Invanz empirically for now Consider removing PICC Discussed with pt/fiance - gastrectomy and cholecystectomy later this week 04/06/17 20:53 04/07/17 13:00 Objective: Vital Signs Temp Pulse Resp BP Pulse Ox 37.0 C 74 14 98/59 L 95 04/07/17 07:09 04/07/17 07:09 04/07/17 07:09 04/07/17 07:09 04/07/17 07:09 Laboratory Results 04/07/17 11:55 04/06/17 04/07/17 04/08/17 05:59 05:59 05:59 Intake Total 1440 756 Output Total 920 650 300 Balance 520 106 -300 ICD10 Worksheet Patient Problems: Problems Problem Status Onset Abdominal abscess Acute Dehydration Acute Hypochloremia Acute Near syncope Acute Shortness of breath Acute
[2017-04-07] MEDS: oxyCODONE ORAL SOLUTION 10 MG/0.5 ML UDSYR TUBE PRN ×3 (16:26→20:45)
[2017-04-07] MEDS: CITALOPRAM 20 MG TAB TUBE SCH (22:13)
[2017-04-07] MEDS: lamoTRIgine 100 MG TAB TUBE SCH (22:13)
[2017-04-08] MEDS: oxyCODONE ORAL SOLUTION 10 MG/0.5 ML UDSYR TUBE PRN ×6 (00:29→21:26)
[2017-04-08] MEDS: ONDANSETRON 4 MG/2 ML VIAL IVP PRN ×5 (00:29→21:40)
[2017-04-08 05:20] LABS: INR 1.07 (0.83-1.16); PROTIME(PATIENT) 14.1 SEC (12.0-15.0)
[2017-04-08] MEDS: ASCORBIC ACID 500 MG TAB TUBE SCH (08:41)
[2017-04-08] MEDS: MULTIVITAMINS 1 EACH TAB PO SCH (08:41)
[2017-04-08] MEDS: POTASSIUM CL 20 MEQ/15 ML UDCUP TUBE SCH (08:41)
[2017-04-08] MEDS: ERTAPENEM 1 GM VIAL IVP SCH (08:41)
[2017-04-08] MEDS: LANSOPRAZOLE SUSP 30MG/10ML UDSYR (Adult) TUBE SCH ×2 (10:36→21:26)
--- NOTE | 2017-04-08 14:56 | GCON ---
[f rep st] CONSULTATION DATE OF CONSULTATION: 04/08/2017 REFERRING PHYSICIAN: Richy Yao MD CHIEF COMPLAINT: Elevated liver function tests. HPI: I am asked to see this patient in consultation by Dr. Yao for chief complaint of abnormal liver function tests. Patient is a 21-year-old followed by our office, last saw Dr. Dacosta. She has significant multiple u nderlying GI complaints stemming from severe GI motility problems with pseudo-obstruction. She has u ndergone a colectomy in 2004 for colonic inertia, had a J-pouch placed in 2017, but this was complica brody by abscess requiring surgery. She currently is getting nutrition from a J-tube, also has a venti ng G-tube and was admitted with abscess and fever and noted to have abnormal liver function tests. T he patient states she has never had abnormal liver function tests before. Never had hepatitis. Ther e is no family history for liver disease. Did have recent likely infectious issue with elevated whit e count and fever, and was treated with Augmentin, which has now been stopped. The patient denies an y right upper quadrant abdominal pain. She does have chronic stable pain in her mid abdomen. She aguilar s had no rashes. No joint pains. Has had some fatigue, but feels significantly improved now with in creasing energy level. From review of her records, I do not see that she has ever been tested for ce liac sprue. ALLERGIES: Allergic to milk and mustard. MEDICATIONS: At home include: Lamictal, Zofran, multivitamin, Prevacid, hydrocodone, Bentyl. PAST MEDICAL HISTORY: As above. 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 Remote history of eating disorder. History of anxiety, depression. She has had multiple surgeries and reanastomosis, PEG tube placement, and receives J-tube feeding, recent abs cess. FAMILY HISTORY: No family history for liver disease. SOCIAL HISTORY: Denies alcohol use. REVIEW OF SYSTEMS: I performed a complete review of systems which is negative except for the pertine nt negatives and positives noted above in the HPI. PHYSICAL EXAM: VITAL SIGNS: Afebrile at 36.9, BP 92/50, pulse 80. CONSTITUTIONAL: She is alert an d oriented. EYES: There is no scleral icterus. OROPHARYNX: No oral lesions. CARDIOVASCULAR: Reg ular rate and rhythm. CHEST: Clear auscultation. ABDOMEN: Has multiple surgical scars. She has a n indwelling tubes in the midline. NEUROLOGIC: Nonfocal. SKIN: No rashes. LABORATORY DATA: Shows alkaline phosphatase of 275, which is actually decreased from admission. AST and ALT are 187 and 115, slightly elevated from admission. Bilirubin is 0.3. Pro time normal at 14 .1. White count is down to 7.6, hematocrit is 30, platelets 252. TSH is low at 0.282. TRACEY and ASMA are negative. Ceruloplasmin is normal. Hepatitis A, B, and C are negative. Ultrasound of the live r shows normal. Right upper quadrant ultrasound, gallbladder appears normal. There are no gallstone s. Common duct is measuring 2-3 mm. ASSESSMENT: Patient with acute elevation of liver function tests. They are a mixed pattern with bot h elevation of alkaline phosphatase primarily, and elevation of AST, ALT, although bilirubin is dennise l. Pro time is normal. This could be multifactorial but possible contributing factors include recen t infection and use of Augmentin, which particularly in younger people can give a mixed pattern. Bhavana vated LFTs can take several weeks to return, but generally is benign. And given that her bilirubin i s normal and pro time is normal, I think these are good prognostic factors. Other considerations wou ld include other infections, particularly Emily-Mena virus or cytomegalovirus. Consider celiac spr ue. I have reviewed her records. She has been scoped multiple times but by our records has not had a small bowel biopsy from the duodenum. She had an ileal biopsy that was normal. Also, patient has a low TSH. I think it would be reasonable to evaluate her for possible hyperthyroidism and this coul d be contributing to abnormal liver tests as well. PLAN: Will complete evaluation serologically, checking EBV, CMV, celiac sprue serology and antimitoc hondrial antibody. We will discuss with Dr. Yao about further workup for her thyroid. We will reche ck LFTs and pro time again tomorrow. At this point, I do not think patient would need more aggressiv e evaluation, including I do not think that we need to do a liver biopsy at this time but will monito r. Thank you for this consult. /[id number]/[facility] [place]
[2017-04-08] MEDS: D5W 1/2 NS W/ 20 KCl/L 1,000 ML IV SCH (17:29)
[2017-04-08] MEDS: CITALOPRAM 20 MG TAB TUBE SCH (21:26)
[2017-04-08] MEDS: lamoTRIgine 100 MG TAB TUBE SCH (21:26)
--- NOTE | 2017-04-08 21:30 | SOAPPROG ---
SOAP Progress Note Assessment/Plan: Assessment:no new complaints overnight. appreciate GI input. she is generally feeling better today than admission. no new complaints. she is still requiring continuous IVF for hydration. her LFT have slightly increased. she has no new gi complaints. her chronic nausea and emesis continue. her mother is present at bedside today. avss. appears much better hydrated. pupils not sunken today. abd soft. PICC site clean. gastroparesis, resolved dehydration and hypokalemia, increased LFT - etiology unclear. patient has provided her nuc study today - will review with rads. PIV placed and PICC to be removed today given recent fevers/malaise/increased LFT despite neg blood cultures and improvement with Invanz - I am not clear as to her current / most recent source of infection - she is clinically better - she has received innumerous recent radiation based studies and am holding off any further xrays if possible. will plan to replace PICC later in week pending lab trend. care plan was extensively discussed with patient and mom as well as nursing staff and GI ( today and previously). we are leaning toward proceeding with a gastrectomy with mariah en y reconstruction once current LFT/infectious issues concluded ( likely next week). risks and benefits were reviewed extensively again today. she is failing to thrive and strongly desiring to proceed with surgical intervention. she is aware that this is an irreversible procedure. her mom is also in agreement. final reccs still to follow. Plan: 04/08/17 21:22 Objective: Vital Signs Temp Pulse Resp BP Pulse Ox 36.6 C 84 20 95/55 L 97 04/08/17 21:19 04/08/17 21:19 04/08/17 21:19 04/08/17 21:19 04/08/17 21:19 Laboratory Results 04/07/17 11:55 04/07/17 11:55 04/07/17 04/08/17 04/09/17 05:59 05:59 05:59 Intake Total 756 2238 2520 Output Total 650 1100 700 Balance 106 1138 1820 PT 14.1 SEC (12.0-15.0) 04/08/17 04:40 INR 1.07 (0.83-1.16) 04/08/17 04:40 ICD10 Worksheet Patient Problems: Problems Problem Status Onset Abdominal abscess Acute Dehydration Acute Hypochloremia Acute Near syncope Acute Shortness of breath Acute
[2017-04-09] MEDS: ONDANSETRON 4 MG/2 ML VIAL IVP PRN ×4 (01:50→23:30)
[2017-04-09] MEDS: oxyCODONE ORAL SOLUTION 10 MG/0.5 ML UDSYR TUBE PRN ×6 (01:50→23:32)
[2017-04-09] MEDS: D5W 1/2 NS W/ 20 KCl/L 1,000 ML IV SCH ×3 (01:52→19:49)
[2017-04-09 05:39] LABS: INR 1.15 (0.83-1.16); PROTIME(PATIENT) 14.9 SEC (12.0-15.0)
[2017-04-09] MEDS: ERTAPENEM 1 GM VIAL IVP SCH (10:52)
[2017-04-09] MEDS: POTASSIUM CL 20 MEQ/15 ML UDCUP TUBE SCH (10:53)
[2017-04-09] MEDS: MULTIVITAMINS 1 EACH TAB PO SCH (10:54)
[2017-04-09] MEDS: LANSOPRAZOLE SUSP 30MG/10ML UDSYR (Adult) TUBE SCH ×2 (10:54→20:39)
[2017-04-09] MEDS: ASCORBIC ACID 500 MG TAB TUBE SCH (10:54)
--- NOTE | 2017-04-09 11:11 | ASMTCMCOM ---
CM Note CM Note Notes: Spoke with patient today who confirms she has opted for surgery. Patient states Dr. Yao thinks she will be ready next Saturday, April 15, 2017. Patient has requested a visit from the hospital convenience recycle center tech/staff weapons officer so she can get information on how to eat after her surgery. Dr Yao has already ordered this. Patient will most likely d/c home with [facility] support and [facility] for infusion. CM will follow for any new needs that might arise for patient after surgery. Date Signed: 04/09/2017 11:10 AM Electronically Signed By:Jennifer Hernandez LCSW
[2017-04-09] MEDS: LORazepam 2 MG/ML INJ IVP PRN ×3 (18:43→23:30)
--- NOTE | 2017-04-09 18:47 | SOAPPROG ---
SOAP Progress Note Assessment/Plan: Assessment:decent night. still complains of vomiting 500cc per episode - 3x since yesterday. feels better with IVF. avss. exam unchanged. CD from [facility] in [facility] reviewed - gastric emptying study - normal study at 4 hours. these findings are distinctly different than her prior serial studies over the past few months. her LFT are starting to trend down. she has been afebrile with a normal WBC on Invanz. she is hemodynamically normalized. i discussed these finding in detail with patient. these findings would dispute the need for surgical intervention. she was extremely tearful over this news. we discussed further her past history of eating concerns and depression/anxiety. while her studies from our initial visits in august were completely abnormal with excessive delayed gastric emptying, i am encouraged that there appears to be radiographic progress when reviewing her latest CT from [facility] moving forward to her current emptying study. i remain intrigued that she still is unable to eat and am starting to question how much of her ongoing eating challenges may have a psychosomatic component in contrast to her seemingly improving imaging studies. we discussed how her anxiety/depression is undoubtedly playing into some of these issues regardless of the imaging findings (she has not worked with her local therapist because of all of her recent side issues). we compromised on repeating/confirming her emptying study in am. if remains normal, no surgery will be needed. will review additional options with GI - left word for dr. soriano. while she is completely distraught over these findings/suggestions, i see this as encouraging news and possibly opening new strategies for treatment. no new complaints overnight. appreciate GI input. she is generally feeling better today than admission. no new complaints. she is still requiring continuous IVF for hydration. her LFT have slightly increased. she has no new gi complaints. her chronic nausea and emesis continue. her mother is present at bedside today. avss. appears much better hydrated. pupils not sunken today. abd soft. PICC site clean. gastroparesis, resolved dehydration and hypokalemia, increased LFT - etiology unclear. patient has provided her nuc study today - will review with rads. PIV placed and PICC to be removed today given recent fevers/malaise/increased LFT despite neg blood cultures and improvement with Invanz - I am not clear as to her current / most recent source of infection - she is clinically better - she has received innumerous recent radiation based studies and am holding off any further xrays if possible. will plan to replace PICC later in week pending lab trend. care plan was extensively discussed with patient and mom as well as nursing staff and GI ( today and previously). we are leaning toward proceeding with a gastrectomy with mariah en y reconstruction once current LFT/infectious issues concluded ( likely next week). risks and benefits were reviewed extensively again today. she is failing to thrive and strongly desiring to proceed with surgical intervention. she is aware that this is an irreversible procedure. her mom is also in agreement. final reccs still to follow. Plan: 04/08/17 21:22 04/09/17 18:36 Objective: Vital Signs Temp Pulse Resp BP Pulse Ox 36.8 C 75 12 102/64 97 04/09/17 15:08 04/09/17 15:08 04/09/17 15:08 04/09/17 15:08 04/09/17 15:08 Laboratory Results 04/07/17 11:55 04/07/17 11:55 04/08/17 04/09/17 04/10/17 05:59 05:59 05:59 Intake Total 2238 2520 3596 Output Total 1100 1600 500 Balance 0045 346 3606 PT 14.9 SEC (12.0-15.0) 04/09/17 04:36 INR 1.15 (0.83-1.16) 04/09/17 04:36 ICD10 Worksheet Patient Problems: Problems Problem Status Onset Abdominal abscess Acute Dehydration Acute Hypochloremia Acute Near syncope Acute Shortness of breath Acute
[2017-04-09] MEDS: CITALOPRAM 20 MG TAB TUBE SCH (20:39)
[2017-04-09] MEDS: lamoTRIgine 100 MG TAB TUBE SCH (20:39)
[2017-04-10] MEDS: oxyCODONE ORAL SOLUTION 10 MG/0.5 ML UDSYR TUBE PRN ×4 (04:09→18:08)
[2017-04-10] MEDS: D5W 1/2 NS W/ 20 KCl/L 1,000 ML IV SCH ×3 (04:12→23:40)
[2017-04-10] MEDS: LORazepam 2 MG/ML INJ IVP PRN ×5 (04:21→20:43)
[2017-04-10] MEDS: ONDANSETRON 4 MG/2 ML VIAL IVP PRN ×4 (09:49→21:11)
[2017-04-10] MEDS: ASCORBIC ACID 500 MG TAB TUBE SCH (10:14)
[2017-04-10] MEDS: MULTIVITAMINS 1 EACH TAB PO SCH (10:14)
[2017-04-10] MEDS: POTASSIUM CL 20 MEQ/15 ML UDCUP TUBE SCH (10:14)
[2017-04-10] MEDS: LANSOPRAZOLE SUSP 30MG/10ML UDSYR (Adult) TUBE SCH ×2 (10:14→20:46)
[2017-04-10] MEDS: ERTAPENEM 1 GM VIAL IVP SCH (10:15)
--- NOTE | 2017-04-10 11:51 | SOAPPROG ---
SOAP Progress Note Assessment/Plan: Assessment: Elevate LFT overall improving with normal bili and PT. Suspect multi factorial from recent Augmentin and also + EBV IgM. Suspect will improve with time. Patient with n/v but GET OK. This too likely multifactorial with probable psychologic overlay. Plan: No new GI recommendation at this time Recommend follow up with her regular GI doctor as outpatient. Repeat LFT next week 04/10/17 11:46 Subjective: CC elevated LFT Pt sleepy no new complaints Objective: Vital Signs Temp Pulse Resp BP Pulse Ox 36.7 C 81 18 103/65 81 L 04/10/17 09:35 04/10/17 09:35 04/10/17 09:35 04/10/17 09:35 04/10/17 09:35 Microbiology 04/04/17 15:08 Blood Culture - Final Blood 04/04/17 14:45 Blood Culture - Final Blood Laboratory Results 04/07/17 11:55 04/07/17 11:55 04/09/17 04/10/17 04/11/17 05:59 05:59 05:59 Intake Total 2520 3596 Output Total 1600 850 Balance 920 2746 PT 14.9 SEC (12.0-15.0) 04/09/17 04:36 INR 1.15 (0.83-1.16) 04/09/17 04:36 Physical Exam - Physical Exam General Appearance: no apparent distress Respiratory: lungs clear Cardiac/Chest: regular rate, rhythm Abdomen: non-tender, soft ICD10 Worksheet Patient Problems: Problems Problem Status Onset Abdominal abscess Acute Dehydration Acute Hypochloremia Acute Near syncope Acute Shortness of breath Acute
--- NOTE | 2017-04-10 19:45 | SOAPPROG ---
SOAP Progress Note Assessment/Plan: Assessment:repeat gastric emptying study essentially same as [facility] - computer artifact secondary to small bowel overlay making 16% residual food at 4 hours an overestimate. EBV+. LFT improving. VSS. patient distraught and anxious over entire situation. >90 minutes spent with patient and mom discussing care plan options. no role for surgical intervention reiterated. i remain encouraged with the new findings. i encourage her to stop draining her gtube and start attempting to focus on learning to re-eat. she needs a comprehensive care team with therapist/director of student affairs/providers which is lacking locally. her acute infectious concerns appear to be resolved - to this end, will dc invanz on discharge. she will require PICC replacement to continue with her home hydration on discharge. she will need to continue with her jtube feeds until she his better able to tolerate po. patient having difficulty focusing on moving forward given her anxiety and appropriate frustration over her situation. extensive questions answered. she has an incredibly supportive family. decent night. still complains of vomiting 500cc per episode - 3x since yesterday. feels better with IVF. avss. exam unchanged. CD from [facility] in [facility] reviewed - gastric emptying study - normal study at 4 hours. these findings are distinctly different than her prior serial studies over the past few months. her LFT are starting to trend down. she has been afebrile with a normal WBC on Invanz. she is hemodynamically normalized. i discussed these finding in detail with patient. these findings would dispute the need for surgical intervention. she was extremely tearful over this news. we discussed further her past history of eating concerns and depression/anxiety. while her studies from our initial visits in august were completely abnormal with excessive delayed gastric emptying, i am encouraged that there appears to be radiographic progress when reviewing her latest CT from [facility] moving forward to her current emptying study. i remain intrigued that she still is unable to eat and am starting to question how much of her ongoing eating challenges may have a psychosomatic component in contrast to her seemingly improving imaging studies. we discussed how her anxiety/depression is undoubtedly playing into some of these issues regardless of the imaging findings (she has not worked with her local therapist because of all of her recent side issues). we compromised on repeating/confirming her emptying study in am. if remains normal, no surgery will be needed. will review additional options with GI - left word for dr. soriano. while she is completely distraught over these findings/suggestions, i see this as encouraging news and possibly opening new strategies for treatment. no new complaints overnight. appreciate GI input. she is generally feeling better today than admission. no new complaints. she is still requiring continuous IVF for hydration. her LFT have slightly increased. she has no new gi complaints. her chronic nausea and emesis continue. her mother is present at bedside today. avss. appears much better hydrated. pupils not sunken today. abd soft. PICC site clean. gastroparesis, resolved dehydration and hypokalemia, increased LFT - etiology unclear. patient has provided her nuc study today - will review with rads. PIV placed and PICC to be removed today given recent fevers/malaise/increased LFT despite neg blood cultures and improvement with Invanz - I am not clear as to her current / most recent source of infection - she is clinically better - she has received innumerous recent radiation based studies and am holding off any further xrays if possible. will plan to replace PICC later in week pending lab trend. care plan was extensively discussed with patient and mom as well as nursing staff and GI ( today and previously). we are leaning toward proceeding with a gastrectomy with mariah en y reconstruction once current LFT/infectious issues concluded ( likely next week). risks and benefits were reviewed extensively again today. she is failing to thrive and strongly desiring to proceed with surgical intervention. she is aware that this is an irreversible procedure. her mom is also in agreement. final reccs still to follow. Plan: 04/08/17 21:22 04/09/17 18:36 04/10/17 19:34 Objective: Vital Signs Temp Pulse Resp BP Pulse Ox 36.7 C 93 12 100/65 98 04/10/17 09:35 04/10/17 16:12 04/10/17 16:12 04/10/17 16:12 04/10/17 16:12 Microbiology 04/04/17 15:08 Blood Culture - Final Blood 04/04/17 14:45 Blood Culture - Final Blood Laboratory Results 04/07/17 11:55 04/07/17 11:55 04/09/17 04/10/17 04/11/17 05:59 05:59 05:59 Intake Total 2520 3596 1840 Output Total 5207 110 4316 Balance 920 2746 440 PT 14.9 SEC (12.0-15.0) 04/09/17 04:36 INR 1.15 (0.83-1.16) 04/09/17 04:36 ICD10 Worksheet Patient Problems: Problems Problem Status Onset Abdominal abscess Acute Dehydration Acute Hypochloremia Acute Near syncope Acute Shortness of breath Acute
[2017-04-10] MEDS ORDERED: ALTEPLASE 2 MG VIAL IVP PRN (19:47)
[2017-04-10] MEDS: KETOROLAC 15 MG/1 ML SDV IVP PRN (20:43)
[2017-04-10] MEDS: lamoTRIgine 100 MG TAB TUBE SCH (20:46)
[2017-04-10] MEDS: CITALOPRAM 20 MG TAB TUBE SCH (20:46)
[2017-04-10] MEDS: DICYCLOMINE 20 MG TAB TUBE PRN (21:41)
[2017-04-11] MEDS: LORazepam 2 MG/ML INJ IVP PRN ×3 (00:17→10:01)
[2017-04-11] MEDS: ONDANSETRON 4 MG/2 ML VIAL IVP PRN ×2 (06:10→17:51)
[2017-04-11] MEDS: POTASSIUM CL 20 MEQ/15 ML UDCUP TUBE SCH (10:03)
[2017-04-11] MEDS: ERTAPENEM 1 GM VIAL IVP SCH (10:03)
[2017-04-11] MEDS: ASCORBIC ACID 500 MG TAB TUBE SCH (10:04)
[2017-04-11] MEDS: MULTIVITAMINS 1 EACH TAB PO SCH (10:04)
[2017-04-11] MEDS: LANSOPRAZOLE SUSP 30MG/10ML UDSYR (Adult) TUBE SCH ×3 (10:07→20:37)
[2017-04-11] MEDS: KETOROLAC 15 MG/1 ML SDV IVP PRN ×2 (12:13→17:51)
[2017-04-11] MEDS: LORazepam 1 MG TAB PO PRN ×3 (15:10→23:41)
--- NOTE | 2017-04-11 16:44 | SOAPPROG ---
SOAP Progress Note Assessment/Plan: Assessment: no new overnight events. patient tearful initially. last nights conversation reiterated. c/o generalized abdominal discomfort. notes emesis x3. no other new concerns. avss. comfortable. abd soft, flat. fiance and nursing staff present at bedside. discussed multiple issues today. we spoke of her comments last mike relating to SI/physician assisted suicide - she states that she is not currently a threat to herself - she is still having thoughts but not actively interested in pursuing them at this time. we spoke about her normal emptying study and the options that are now open to her. we spoke about needing to involved a joint terminal attack controller therapist to help with her long standing eating dysfunction. we discussed having zander tarango return to speak with her on friday. 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 we discussed strategies for re- implementing po intake little by little - may be able to start feeding her gtube small volumes daily - she is encourage to start eating ad derek. we discussed permanent discontinuation of her narcotics which she has no role for at this time - I am adding neurontin for her generalized discomfort which may have multiple benefits related pain, depression/anxiety.... we discussed the potential role for MMJ/edibles which i have not experience - they plan to look into this further. she will stay in hospital over the weekend to focus on the above efforts and to ensure she remains safe. will enlist PT/OT as well. plan discussed with CM. all questions entertained in detail. LVM for [facility] GI service earlier as well. repeat gastric emptying study essentially same as [facility] - computer artifact secondary to small bowel overlay making 16% residual food at 4 hours an overestimate. EBV+. LFT improving. VSS. patient distraught and anxious over entire situation. >90 minutes spent with patient and mom discussing care plan options. no role for surgical intervention reiterated. i remain encouraged with the new findings. i encourage her to stop draining her gtube and start attempting to focus on learning to re-eat. she needs a comprehensive care team with therapist/budget accountant/providers which is lacking locally. her acute infectious concerns appear to be resolved - to this end, will dc invanz on discharge. she will require PICC replacement to continue with her home hydration on discharge. she will need to continue with her jtube feeds until she his better able to tolerate po. patient having difficulty focusing on moving forward given her anxiety and appropriate frustration over her situation. extensive questions answered. she has an incredibly supportive family. decent night. still complains of vomiting 500cc per episode - 3x since yesterday. feels better with IVF. avss. exam unchanged. CD from [facility] in [facility] reviewed - gastric emptying study - normal study at 4 hours. these findings are distinctly different than her prior serial studies over the past few months. her LFT are starting to trend down. she has been afebrile with a normal WBC on Invanz. she is hemodynamically normalized. i discussed these finding in detail with patient. these findings would dispute the need for surgical intervention. she was extremely tearful over this news. we discussed further her past history of eating concerns and depression/anxiety. while her studies from our initial visits in august were completely abnormal with excessive delayed gastric emptying, i am encouraged that there appears to be radiographic progress when reviewing her latest CT from [facility] moving forward to her current emptying study. i remain intrigued that she still is unable to eat and am starting to question how much of her ongoing eating challenges may have a psychosomatic component in contrast to her seemingly improving imaging studies. we discussed how her anxiety/depression is undoubtedly playing into some of these issues regardless of the imaging findings (she has not worked with her local therapist because of all of her recent side issues). we compromised on repeating/confirming her emptying study in am. if remains normal, no surgery will be needed. will review additional options with GI - left word for dr. soriano. while she is completely distraught over these findings/suggestions, i see this as encouraging news and possibly opening new strategies for treatment. no new complaints overnight. appreciate GI input. she is generally feeling better today than admission. no new complaints. she is still requiring continuous IVF for hydration. her LFT have slightly increased. she has no new gi complaints. her chronic nausea and emesis continue. her mother is present at bedside today. avss. appears much better hydrated. pupils not sunken today. abd soft. PICC site clean. gastroparesis, resolved dehydration and hypokalemia, increased LFT - etiology unclear. patient has provided her nuc study today - will review with rads. PIV placed and PICC to be removed today given recent fevers/malaise/increased LFT despite neg blood cultures and improvement with Invanz - I am not clear as to her current / most recent source of infection - she is clinically better - she has received innumerous recent radiation based studies and am holding off any further xrays if possible. will plan to replace PICC later in week pending lab trend. care plan was extensively discussed with patient and mom as well as nursing staff and GI ( today and previously). we are leaning toward proceeding with a gastrectomy with mariah en y reconstruction once current LFT/infectious issues concluded ( likely next week). risks and benefits were reviewed extensively again today. she is failing to thrive and strongly desiring to proceed with surgical intervention. she is aware that this is an irreversible procedure. her mom is also in agreement. final reccs still to follow. Plan: 04/08/17 21:22 04/09/17 18:36 04/10/17 19:34 04/11/17 16:34 Objective: Vital Signs Temp Pulse Resp BP Pulse Ox 37.1 C 125 H 16 108/67 97 04/11/17 08:00 04/11/17 08:00 04/11/17 08:00 04/11/17 08:00 04/11/17 08:00 Laboratory Results 04/07/17 11:55 04/07/17 11:55 04/10/17 04/11/17 04/12/17 05:59 05:59 05:59 Intake Total 3596 1840 Output Total 850 1400 Balance 2746 440 PT 14.9 SEC (12.0-15.0) 04/09/17 04:36 INR 1.15 (0.83-1.16) 04/09/17 04:36 ICD10 Worksheet Patient Problems: Problems Problem Status Onset Abdominal abscess Acute Dehydration Acute Hypochloremia Acute Near syncope Acute Shortness of breath Acute
[2017-04-11] MEDS: GABAPENTIN 300 MG CAP PO SCH (17:00)
--- NOTE | 2017-04-11 17:12 | ASMTCMCOM ---
CM Note CM Note Notes: Today Eyad reingaged with all of Pt's outpatient agency supports. Called Nancy at [facility] (IV fluids), Leticia at [facility] (enteral feeds), and Shell at [facility] (RN). Updated all on Pt's care and sent [employer] updates to all. All state they are on board to resume care at d/c. Pt is still staying at el Solis's family's home: [address] [place] [address] [place] [id number] Nancy - [facility] - Leticia - [facility] - [phone] Shell - [facility] ([facility]) - (note: home nurse working with Pt. is Dian Back) Pt's stomach and GI system now working and moving. Pt.'s reaction to learning that she would NOT need a gastrectomy surgery was not consistent with the good news. Due to Pt's concerning behavior, Eyad called Claudia Milner, behavioral health RN to see if she could see Pt. for an updated evaluation. Claudia not available today. Asked her to see Pt. on Friday. Consulted with bedside RNs who are concerned about Pt's behavior. was able to meet with Pt. and they had a conversation that stated was hopeful. to keep Pt. through the weekend and is in favor of consult w/ Claudia Milner on Friday. CMs to follow for d/c POC. Date Signed: 04/11/2017 05:12 PM Electronically Signed By:Melyssa Silva LCSW
[2017-04-11] MEDS: lamoTRIgine 100 MG TAB TUBE SCH (20:37)
[2017-04-11] MEDS: CITALOPRAM 20 MG TAB TUBE SCH (20:37)
[2017-04-12] MEDS: D5W 1/2 NS W/ 20 KCl/L 1,000 ML IV SCH ×2 (04:21→18:27)
[2017-04-12] MEDS: LORazepam 1 MG TAB PO PRN ×2 (04:23→09:03)
[2017-04-12] MEDS: POTASSIUM CL 20 MEQ/15 ML UDCUP TUBE SCH (09:03)
[2017-04-12] MEDS: MULTIVITAMINS 1 EACH TAB PO SCH (09:03)
[2017-04-12] MEDS: ASCORBIC ACID 500 MG TAB TUBE SCH (09:03)
[2017-04-12] MEDS: GABAPENTIN 300 MG CAP PO SCH (09:03)
--- NOTE | 2017-04-12 09:33 | SOAPPROG ---
SOAP Progress Note Assessment/Plan: Assessment/Plan: Nuclear medicine test for gastric emptying was completely normal from outside institution as well as repeat study here yesterday. Appreciate GI input elevated transaminases and alkaline phosphatase possibly due to Augmentin she also had positive antibodies to EBV. They recommend supportive care and follow up with GI as an outpatient. After several hours of discussion with the family Dr. Yao has concluded further surgery at this time would be detrimental the patient and that retraining of her stomach to except food would be an ideal pathway to recovery. Although the patient initially felt this would be could she fills the speed of transition is too fast. After discussion with her last night Ativan was given through the J- tube. We will continue to give medications the jejunostomy tube and transition this to J-tube feeds. During this time will also give bolus feeds through her G -tube while continuing to maintain nutrition through her constant J-tube feeds. Oral intake is also encouraged at this point and dietary has been consult to manage/help with this transition. Alert oriented no distress Clear to auscultation Abdomen soft nontender nondistended Ileostomy intubated with normal small-bowel output Impression/plan: Normal gastric emptying test, hepatitis secondary to medication and EBV. Slowly advance diet with dietitian input. Continue J-tube feeds continuous for nutrition and weight gain. Psychiatric consultation/therapy to improve psychosomatic manifestations eating disorder. Encourage ordered intake despite anxiety and occasional emesis. Transition medications from J-tube to G-tube 04/12/17 09:28 Objective: Vital Signs Temp Pulse Resp BP Pulse Ox 37 C 116 H 12 85/54 L 95 04/12/17 08:00 04/12/17 08:00 04/12/17 08:00 04/12/17 08:00 04/12/17 08:00 Laboratory Results 04/07/17 11:55 04/07/17 11:55 04/11/17 04/12/17 04/13/17 05:59 05:59 05:59 Intake Total 1840 1810 Output Total 1400 1400 Balance 440 410 PT 14.9 SEC (12.0-15.0) 04/09/17 04:36 INR 1.15 (0.83-1.16) 04/09/17 04:36 ICD10 Worksheet Patient Problems: Problems Problem Status Onset Abdominal abscess Acute Dehydration Acute Hypochloremia Acute Near syncope Acute Shortness of breath Acute
[2017-04-12] MEDS: DICYCLOMINE 20 MG TAB TUBE PRN (10:24)
[2017-04-12] MEDS: ONDANSETRON 4 MG/2 ML VIAL IVP PRN ×2 (10:28→18:27)
[2017-04-12] MEDS ORDERED: ACETAMINOPHEN 325 MG TAB PO PRN (12:03)
[2017-04-12] MEDS ORDERED: IBUPROFEN 200 MG TAB PO PRN (12:03)
[2017-04-12] MEDS ORDERED: traMADol 50 MG TAB PO PRN (14:57)
[2017-04-12] MEDS: LORazepam 1 MG TAB TUBE PRN ×3 (15:11→23:57)
[2017-04-12] MEDS: LANSOPRAZOLE SUSP 30MG/10ML UDSYR (Adult) TUBE SCH (22:17)
[2017-04-12] MEDS: lamoTRIgine 100 MG TAB TUBE SCH (22:18)
[2017-04-12] MEDS: CITALOPRAM 20 MG TAB TUBE SCH (22:18)
[2017-04-13] MEDS: D5W 1/2 NS W/ 20 KCl/L 1,000 ML IV SCH ×2 (07:30→18:16)
[2017-04-13] MEDS: LORazepam 1 MG TAB TUBE PRN ×3 (07:54→20:22)
--- NOTE | 2017-04-13 08:52 | SOAPPROG ---
SOAP Progress Note Assessment/Plan: Assessment/Plan: Nuclear medicine test for gastric emptying was completely normal from outside institution as well as repeat study here. Appreciate GI input elevated transaminases and alkaline phosphatase possibly due to Augmentin she also had positive antibodies to EBV. They recommend supportive care and follow up with GI as an outpatient. After several hours of discussion with the family Dr. Yao has concluded further surgery at this time could be detrimental the patient and that retraining of her stomach to except food would be an ideal pathway to recovery. Although the patient initially felt this would be could she fills the speed of transition is too fast. After discussion with her last night Ativan was given through the J- tube. We will continue to give medications the jejunostomy tube and transition this to J-tube feeds. During this time will also give bolus feeds through her G -tube while continuing to maintain nutrition through her constant J-tube feeds. Oral intake is also encouraged at this point and dietary has been consult to manage/help with this transition. Alert oriented no distress Clear to auscultation Abdomen soft nontender nondistended Ileostomy intubated with normal small-bowel output Impression/plan: Normal gastric emptying test, hepatitis secondary to medication and EBV. Slowly advance diet with dietitian input. Continue J-tube feeds continuous for nutrition and weight gain. Psychiatric consultation/therapy to improve psychosomatic manifestations eating disorder. Encourage ordered intake despite anxiety and occasional emesis. Transition medications from J-tube to G-tube Pt states she does not recall discussions with Dr Yao and has not agreed with plan of care. Mother present today for discussion and reinforcement of plan was done. Andree will need to write/document discussions so as to be able to refer to them later for clarification. All questions addressed PICC line leaking - addressed without issue. 04/13/17 08:48 Objective: Vital Signs Temp Pulse Resp BP Pulse Ox 36.5 C 111 H 12 95/71 L 96 04/13/17 08:00 04/13/17 08:00 04/13/17 08:00 04/13/17 08:00 04/13/17 08:00 Laboratory Results 04/07/17 11:55 04/07/17 11:55 04/12/17 04/13/17 04/14/17 05:59 05:59 05:59 Intake Total 1810 2810 1847 Output Total 1400 4450 Balance 410 -1640 1847 PT 14.9 SEC (12.0-15.0) 04/09/17 04:36 INR 1.15 (0.83-1.16) 04/09/17 04:36 ICD10 Worksheet Patient Problems: Problems Problem Status Onset Abdominal abscess Acute Dehydration Acute Hypochloremia Acute Near syncope Acute Shortness of breath Acute
[2017-04-13] MEDS: GABAPENTIN 300 MG CAP TUBE SCH (11:48)
[2017-04-13] MEDS: MULTIVITAMINS 1 EACH TAB PO SCH (11:49)
[2017-04-13] MEDS: POTASSIUM CL 20 MEQ/15 ML UDCUP TUBE SCH (11:49)
[2017-04-13] MEDS: ASCORBIC ACID 500 MG TAB TUBE SCH (11:49)
[2017-04-13] MEDS: LANSOPRAZOLE SUSP 30MG/10ML UDSYR (Adult) TUBE SCH ×2 (11:50→20:54)
[2017-04-13] MEDS: ONDANSETRON 4 MG/2 ML VIAL IVP PRN ×3 (12:05→20:22)
[2017-04-13] MEDS: DICYCLOMINE 20 MG TAB TUBE PRN ×2 (12:15→20:54)
[2017-04-13] MEDS: lamoTRIgine 100 MG TAB TUBE SCH (20:22)
[2017-04-13] MEDS: CITALOPRAM 20 MG TAB TUBE SCH (20:22)
[2017-04-14] MEDS: LORazepam 1 MG TAB TUBE PRN ×6 (01:41→21:32)
[2017-04-14] MEDS: ONDANSETRON 4 MG/2 ML VIAL IVP PRN ×2 (01:41→13:20)
[2017-04-14] MEDS: ASCORBIC ACID 500 MG TAB TUBE SCH (08:13)
[2017-04-14] MEDS: MULTIVITAMINS 1 EACH TAB PO SCH (08:13)
[2017-04-14] MEDS: GABAPENTIN 300 MG CAP TUBE SCH ×2 (08:13→20:27)
[2017-04-14] MEDS: LANSOPRAZOLE SUSP 30MG/10ML UDSYR (Adult) TUBE SCH ×2 (08:13→20:27)
[2017-04-14] MEDS: POTASSIUM CL 20 MEQ/15 ML UDCUP TUBE SCH (08:14)
[2017-04-14] MEDS: D5W 1/2 NS W/ 20 KCl/L 1,000 ML IV SCH ×2 (08:26→21:44)
[2017-04-14] MEDS: DICYCLOMINE 20 MG TAB TUBE PRN (13:19)
[2017-04-14] MEDS: KETOROLAC 15 MG/1 ML SDV IVP PRN (14:49)
--- NOTE | 2017-04-14 15:25 | ASMTCMCOM ---
CM Note CM Note Notes: Claudia Milner is in process of psych consult for patient. Left a message for her as we will need to collaborate to plan for patient's D/C. Dr. Yao has determined patient does not need surgery at this time. CM will follow. Date Signed: 04/14/2017 03:25 PM Electronically Signed By:Jennifer Hernandez LCSW
[2017-04-14] MEDS ORDERED: METOCLOPRAMIDE 10 MG/10 ML UDL PO PRN (19:51)
--- NOTE | 2017-04-14 20:05 | SOAPPROG ---
SOAP Progress Note Assessment/Plan: Assessment: weekend events reviewed with Dr. Monaco. Patient seen by Claudia Tarango today - i left her a VM to review. only new physical complaints are persistent emesis x4 today. she notes leakage around her j tube increasing. avss. comfortable. >90 minutes spent in reviewing patient documented notes regarding her GI future, fear over current situation, concerns about what if things don't work, when can she return to school, why can't she have surgery, what is a quick fix for her chronic issues....... we discussed her comments on suicidal ideations - she is not currently having these thoughts. she acknowledged her difficulty losing control and lack of tools to deal with her current situation. she acknowledged and agreed that she needs a dedicated psychiatrist and requests references here in [place]. she states that she connected with dr. sears and would like to have him as her outpatient gi md. we discussed again that surgery is NOT an option. we discussed leaving her gtube clamped (and possibly exchanging for a lower profile tube if available). we discussed that she will likely not be able to return to school this year. we discussed that her goals are to be able to eat and wean off tube feeds and IV (she states that she appropriately dislikes living like this). we discussed her unusual reactions when given optimistic news. we discussed obtaining additional opinions regarding my surgical reccs. we discussed her need to let go of her control over her situation and let her providers guide her through this process rather than herself. extensive questions again entertained. will obtain jtube study tomorrow with possible replacement. will repeat labs in am. we discussed an end goal of discharge this week - will await psych reccs. will increase neurontin - no more narcotics appropriate. will change nausea meds. care plan reviewed multiple times throughout day with CM and nursing staff. no new overnight events. patient tearful initially. last nights conversation reiterated. c/o generalized abdominal discomfort. notes emesis x3. no other new concerns. avss. comfortable. abd soft, flat. fiance and nursing staff present at bedside. discussed multiple issues today. we spoke of her comments last mike relating to SI/physician assisted suicide - she states that she is not currently a threat to herself - she is still having thoughts but not actively interested in pursuing them at this time. we spoke about her normal emptying study and the options that are now open to her. we spoke about needing to involved a moth exterminator therapist to help with her long standing eating dysfunction. we discussed having claudia tarango return to speak with her on friday. 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 we discussed strategies for re- implementing po intake little by little - may be able to start feeding her gtube small volumes daily - she is encourage to start eating ad derek. we discussed permanent discontinuation of her narcotics which she has no role for at this time - I am adding neurontin for her generalized discomfort which may have multiple benefits related pain, depression/anxiety.... we discussed the potential role for MMJ/edibles which i have not experience - they plan to look into this further. she will stay in hospital over the weekend to focus on the above efforts and to ensure she remains safe. will enlist PT/OT as well. plan discussed with CM. all questions entertained in detail. LVM for [facility] GI service earlier as well. repeat gastric emptying study essentially same as [facility] - computer artifact secondary to small bowel overlay making 16% residual food at 4 hours an overestimate. EBV+. LFT improving. VSS. patient distraught and anxious over entire situation. >90 minutes spent with patient and mom discussing care plan options. no role for surgical intervention reiterated. i remain encouraged with the new findings. i encourage her to stop draining her gtube and start attempting to focus on learning to re-eat. she needs a comprehensive care team with therapist/criminal defense lawyer/providers which is lacking locally. her acute infectious concerns appear to be resolved - to this end, will dc invanz on discharge. she will require PICC replacement to continue with her home hydration on discharge. she will need to continue with her jtube feeds until she his better able to tolerate po. patient having difficulty focusing on moving forward given her anxiety and appropriate frustration over her situation. extensive questions answered. she has an incredibly supportive family. decent night. still complains of vomiting 500cc per episode - 3x since yesterday. feels better with IVF. avss. exam unchanged. CD from [facility] in [facility] reviewed - gastric emptying study - normal study at 4 hours. these findings are distinctly different than her prior serial studies over the past few months. her LFT are starting to trend down. she has been afebrile with a normal WBC on Invanz. she is hemodynamically normalized. i discussed these finding in detail with patient. these findings would dispute the need for surgical intervention. she was extremely tearful over this news. we discussed further her past history of eating concerns and depression/anxiety. while her studies from our initial visits in august were completely abnormal with excessive delayed gastric emptying, i am encouraged that there appears to be radiographic progress when reviewing her latest CT from [facility] moving forward to her current emptying study. i remain intrigued that she still is unable to eat and am starting to question how much of her ongoing eating challenges may have a psychosomatic component in contrast to her seemingly improving imaging studies. we discussed how her anxiety/depression is undoubtedly playing into some of these issues regardless of the imaging findings (she has not worked with her local therapist because of all of her recent side issues). we compromised on repeating/confirming her emptying study in am. if remains normal, no surgery will be needed. will review additional options with GI - left word for dr. soriano. while she is completely distraught over these findings/suggestions, i see this as encouraging news and possibly opening new strategies for treatment. no new complaints overnight. appreciate GI input. she is generally feeling better today than admission. no new complaints. she is still requiring continuous IVF for hydration. her LFT have slightly increased. she has no new gi complaints. her chronic nausea and emesis continue. her mother is present at bedside today. avss. appears much better hydrated. pupils not sunken today. abd soft. PICC site clean. gastroparesis, resolved dehydration and hypokalemia, increased LFT - etiology unclear. patient has provided her nuc study today - will review with rads. PIV placed and PICC to be removed today given recent fevers/malaise/increased LFT despite neg blood cultures and improvement with Invanz - I am not clear as to her current / most recent source of infection - she is clinically better - she has received innumerous recent radiation based studies and am holding off any further xrays if possible. will plan to replace PICC later in week pending lab trend. care plan was extensively discussed with patient and mom as well as nursing staff and GI ( today and previously). we are leaning toward proceeding with a gastrectomy with mariah en y reconstruction once current LFT/infectious issues concluded ( likely next week). risks and benefits were reviewed extensively again today. she is failing to thrive and strongly desiring to proceed with surgical intervention. she is aware that this is an irreversible procedure. her mom is also in agreement. final reccs still to follow. Plan: 04/08/17 21:22 04/09/17 18:36 04/10/17 19:34 04/11/17 16:34 04/14/17 19:54 04/14/17 20:05 Objective: Vital Signs Temp Pulse Resp BP Pulse Ox 36.6 C 99 12 113/67 98 04/14/17 16:00 04/14/17 16:00 04/14/17 16:00 04/14/17 16:00 04/14/17 16:00 Laboratory Results 04/07/17 11:55 04/07/17 11:55 04/13/17 04/14/17 04/15/17 05:59 05:59 05:59 Intake Total 5494 5073 Output Total 2651 8010 2425 Balance -1640 -3294 -2425 PT 14.9 SEC (12.0-15.0) 04/09/17 04:36 INR 1.15 (0.83-1.16) 04/09/17 04:36 ICD10 Worksheet Patient Problems: Problems Problem Status Onset Abdominal abscess Acute Dehydration Acute Hypochloremia Acute Near syncope Acute Shortness of breath Acute
[2017-04-14] MEDS: CITALOPRAM 20 MG TAB TUBE SCH (20:27)
[2017-04-14] MEDS: lamoTRIgine 100 MG TAB TUBE SCH (20:27)
[2017-04-14] MEDS: PROMETHAZINE HCL 25 MG TAB TUBE PRN ×2 (20:27→21:31)
[2017-04-14] MEDS: METOCLOPRAMIDE 10 MG/10 ML UDL TUBE PRN (23:43)
[2017-04-15] MEDS: LORazepam 1 MG TAB TUBE PRN ×4 (01:34→18:35)
[2017-04-15] MEDS: PROMETHAZINE HCL 25 MG TAB TUBE PRN ×4 (03:33→22:33)
[2017-04-15] MEDS: POTASSIUM CL 20 MEQ/15 ML UDCUP TUBE SCH (09:33)
[2017-04-15] MEDS: MULTIVITAMINS 1 EACH TAB PO SCH (09:34)
[2017-04-15] MEDS: GABAPENTIN 300 MG CAP TUBE SCH ×2 (09:34→20:15)
[2017-04-15] MEDS: ASCORBIC ACID 500 MG TAB TUBE SCH (09:34)
[2017-04-15] MEDS: LANSOPRAZOLE SUSP 30MG/10ML UDSYR (Adult) TUBE SCH ×2 (10:34→20:15)
[2017-04-15] MEDS ORDERED: fentaNYL 100 MCG/2 ML INJ ONE (12:27)
[2017-04-15] MEDS ORDERED: HYDROmorphONE/DILAUDID 2 MG/ML INJ ONE (12:31)
[2017-04-15] MEDS: D5W 1/2 NS W/ 20 KCl/L 1,000 ML IV SCH (13:07)
[2017-04-15] MEDS ORDERED: IOPAMIDOL (ISOVUE-300) 100 ML BTL ONE (13:25)
[2017-04-15] MEDS ORDERED: LIDOCAINE 1% 300 MG/30 ML SDV ONE (13:25)
--- NOTE | 2017-04-15 17:02 | ASMTCMCOM ---
CM Note CM Note Notes: CM spoke w/ Dr. Yao regarding d/c POC. CM left a msg for a call back from [place]. CM met w/ pt for dispo planning. Pt was able to identify some coping skills. CM [place]. CM provided pt w/ name and phone number for a psychiatrist. Pt plans on going back to school. Pt reports that she has been throwing up a lot today. CM to follow. Plan: HIRAL, RN, SW and outpatient psych services Date Signed: 04/15/2017 05:01 PM Electronically Signed By:BRENDA Farah
[2017-04-15] MEDS ORDERED: LORazepam 1 MG TAB TUBE PRN (17:22)
--- NOTE | 2017-04-15 17:48 | SOAPPROG ---
SOAP Progress Note Assessment/Plan: Assessment: G and J tubes changed today. no new complaints - still with intermittent emesis. avss. comfortable. abd soft. tubes secure. RLQ fistula site remains nicely closed. i spoke with dr. sears earlier today who has agreed to help with Andree's care in the outpatient setting. we discussed a goal of discharge tomorrow - she is requesting because of her fiance's schedule - encouraged tomorrow instead. we discussed minimizing her ativan and phenergan (she is requesting this combo frequently). she is requesting more IVF despite receiving adequate quantities-will remove K from IVF today given adeq potassium levels-she is receiving adequate hydration via IVF and TF with flushes. we discussed her normalization of her LFT/hepatitis resolution. she has been provided psychiatrist reccs by [facility]. after further lengthy discussion with nursing staff present, Andree verbalized her commitment to stay the course for now. she acknowledges that improvement will be measured in baby steps. she acknowledged that she is not a threat to herself and is not having further active suicidal ideations. we discussed her challenges remembering prior conversations - she has started to keep a log. it was noted that she needs to allow her providers to best extend care to her rather than Andree trying to always be in control of her care plan. extensive questions again answered. her fiance arrived at the end of our discussion and was updated as well. weekend events reviewed with Dr. Monaco. Patient seen by Claudia Tarango today - i left her a VM to review. only new physical complaints are persistent emesis x4 today. she notes leakage around her j tube increasing. avss. comfortable. > 90 minutes spent in reviewing patient documented notes regarding her GI future, fear over current situation, concerns about what if things don't work, when can she return to school, why can't she have surgery, what is a quick fix for her chronic issues....... we discussed her comments on suicidal ideations - she is not currently having these thoughts. she acknowledged her difficulty losing control and lack of tools to deal with her current situation. she acknowledged and agreed that she needs a dedicated psychiatrist and requests references here in [place]. she states that she connected with dr. sears and would like to have him as her outpatient gi md. we discussed again that surgery is NOT an option. we discussed leaving her gtube clamped (and possibly exchanging for a lower profile tube if available). we discussed that she will likely not be able to return to school this year. we discussed that her goals are to be able to eat and wean off tube feeds and IV (she states that she appropriately dislikes living like this). we discussed her unusual reactions when given optimistic news. we discussed obtaining additional opinions regarding my surgical reccs. we discussed her need to let go of her control over her situation and let her providers guide her through this process rather than herself. extensive questions again entertained. will obtain jtube study tomorrow with possible replacement. will repeat labs in am. we discussed an end goal of discharge this week - will await psych reccs. will increase neurontin - no more narcotics appropriate. will change nausea meds. care plan reviewed multiple times throughout day with CM and nursing staff. no new overnight events. patient tearful initially. last nights conversation reiterated. c/o generalized abdominal discomfort. notes emesis x3. no other new concerns. avss. comfortable. abd soft, flat. fiance and nursing staff present at bedside. discussed multiple issues today. we spoke of her comments last mike relating to SI/physician assisted suicide - she states that she is not currently a threat to herself - she is still having thoughts but not actively interested in pursuing them at this time. we spoke about her normal emptying study and the options that are now open to her. we spoke about needing to involved a custodial therapist to help with her long standing eating dysfunction. we discussed having claudia tarango return to speak with her on friday. 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 we discussed strategies for re- implementing po intake little by little - may be able to start feeding her gtube small volumes daily - she is encourage to start eating ad derek. we discussed permanent discontinuation of her narcotics which she has no role for at this time - I am adding neurontin for her generalized discomfort which may have multiple benefits related pain, depression/anxiety.... we discussed the potential role for MMJ/edibles which i have not experience - they plan to look into this further. she will stay in hospital over the weekend to focus on the above efforts and to ensure she remains safe. will enlist PT/OT as well. plan discussed with CM. all questions entertained in detail. LVM for [facility] GI service earlier as well. repeat gastric emptying study essentially same as [facility] - computer artifact secondary to small bowel overlay making 16% residual food at 4 hours an overestimate. EBV+. LFT improving. VSS. patient distraught and anxious over entire situation. >90 minutes spent with patient and mom discussing care plan options. no role for surgical intervention reiterated. i remain encouraged with the new findings. i encourage her to stop draining her gtube and start attempting to focus on learning to re-eat. she needs a comprehensive care team with therapist/sports journalist/providers which is lacking locally. her acute infectious concerns appear to be resolved - to this end, will dc invanz on discharge. she will require PICC replacement to continue with her home hydration on discharge. she will need to continue with her jtube feeds until she his better able to tolerate po. patient having difficulty focusing on moving forward given her anxiety and appropriate frustration over her situation. extensive questions answered. she has an incredibly supportive family. decent night. still complains of vomiting 500cc per episode - 3x since yesterday. feels better with IVF. avss. exam unchanged. CD from [facility] in [facility] reviewed - gastric emptying study - normal study at 4 hours. these findings are distinctly different than her prior serial studies over the past few months. her LFT are starting to trend down. she has been afebrile with a normal WBC on Invanz. she is hemodynamically normalized. i discussed these finding in detail with patient. these findings would dispute the need for surgical intervention. she was extremely tearful over this news. we discussed further her past history of eating concerns and depression/anxiety. while her studies from our initial visits in august were completely abnormal with excessive delayed gastric emptying, i am encouraged that there appears to be radiographic progress when reviewing her latest CT from [facility] moving forward to her current emptying study. i remain intrigued that she still is unable to eat and am starting to question how much of her ongoing eating challenges may have a psychosomatic component in contrast to her seemingly improving imaging studies. we discussed how her anxiety/depression is undoubtedly playing into some of these issues regardless of the imaging findings (she has not worked with her local therapist because of all of her recent side issues). we compromised on repeating/confirming her emptying study in am. if remains normal, no surgery will be needed. will review additional options with GI - left word for dr. soriano. while she is completely distraught over these findings/suggestions, i see this as encouraging news and possibly opening new strategies for treatment. no new complaints overnight. appreciate GI input. she is generally feeling better today than admission. no new complaints. she is still requiring continuous IVF for hydration. her LFT have slightly increased. she has no new gi complaints. her chronic nausea and emesis continue. her mother is present at bedside today. avss. appears much better hydrated. pupils not sunken today. abd soft. PICC site clean. gastroparesis, resolved dehydration and hypokalemia, increased LFT - etiology unclear. patient has provided her nuc study today - will review with rads. PIV placed and PICC to be removed today given recent fevers/malaise/increased LFT despite neg blood cultures and improvement with Invanz - I am not clear as to her current / most recent source of infection - she is clinically better - she has received innumerous recent radiation based studies and am holding off any further xrays if possible. will plan to replace PICC later in week pending lab trend. care plan was extensively discussed with patient and mom as well as nursing staff and GI ( today and previously). we are leaning toward proceeding with a gastrectomy with mariah en y reconstruction once current LFT/infectious issues concluded ( likely next week). risks and benefits were reviewed extensively again today. she is failing to thrive and strongly desiring to proceed with surgical intervention. she is aware that this is an irreversible procedure. her mom is also in agreement. final reccs still to follow. Plan: 04/08/17 21:22 04/09/17 18:36 04/10/17 19:34 04/11/17 16:34 04/14/17 19:54 04/14/17 20:05 04/15/17 17:25 Objective: Vital Signs Temp Pulse Resp BP Pulse Ox 36.6 C 99 16 105/83 H 97 04/15/17 16:40 04/15/17 16:40 04/15/17 16:40 04/15/17 16:40 04/15/17 16:40 Laboratory Results 04/15/17 05:30 04/15/17 05:30 04/14/17 04/15/17 04/16/17 05:59 05:59 05:59 Intake Total 4725 730 Output Total 8019 2875 900 Balance -3294 -2145 -900 PT 14.9 SEC (12.0-15.0) 04/09/17 04:36 INR 1.15 (0.83-1.16) 04/09/17 04:36 ICD10 Worksheet Patient Problems: Problems Problem Status Onset Abdominal abscess Acute Dehydration Acute Hypochloremia Acute Near syncope Acute Shortness of breath Acute
[2017-04-15] MEDS: CITALOPRAM 20 MG TAB TUBE SCH (20:15)
[2017-04-15] MEDS: METOCLOPRAMIDE 10 MG/10 ML UDL TUBE PRN (20:15)
[2017-04-15] MEDS: lamoTRIgine 100 MG TAB TUBE SCH (20:15)
[2017-04-16] MEDS: LORazepam 1 MG TAB TUBE PRN ×4 (00:35→21:31)
[2017-04-16] MEDS: NS 1,000 ML IV SCH ×2 (01:51→15:28)
[2017-04-16] MEDS: PROMETHAZINE HCL 25 MG TAB TUBE PRN ×3 (05:24→17:31)
[2017-04-16] MEDS: ASCORBIC ACID 500 MG TAB TUBE SCH (09:10)
[2017-04-16] MEDS: LANSOPRAZOLE SUSP 30MG/10ML UDSYR (Adult) TUBE SCH ×2 (09:10→21:31)
[2017-04-16] MEDS: GABAPENTIN 300 MG CAP TUBE SCH ×2 (09:10→21:30)
[2017-04-16] MEDS: MULTIVITAMINS 1 EACH TAB PO SCH (09:10)
[2017-04-16] MEDS: METOCLOPRAMIDE 10 MG/10 ML UDL TUBE PRN ×2 (14:07→19:44)
--- NOTE | 2017-04-16 17:19 | ASMTCMCOM ---
CM Note CM Note Notes: Provided supportive counseling to Pt. in room today. Called Claudia Milner, behavioral health RN to consult. No notes in chart yet and not able to reach her. Left msg. Plan for d/c tomorrow w/ [facility], [employer] IV saline for hydration, and EPIC enteral feeds. Date Signed: 04/16/2017 05:18 PM Electronically Signed By:Melyssa Silva LCSW
--- NOTE | 2017-04-16 17:37 | SOAPPROG ---
SOAP Progress Note Assessment/Plan: Assessment: positive discussion with patient. she made an appt with psychiatry for friday. she called dr. sears's office. she is researching additional therapists as well. she verbalized feeling more clear and that she needs to address the above issues moving forward. she continues to vomit. she vomits less with phenergan. afebrile p 90-120. labs improved - k 4.6 today, wbc 11. exam unchanged. she was laying in bed laughing with her fiance today. she is ready for discharge tomorrow - will need to coordinate home care prior. we discussed obtaining a MMJ card - I am in support of pursuing these efforts. I will contact her planned psychiatrist this week to update her of elen's history. nursing staff and CM aware of plan. G and J tubes changed today. no new complaints - still with intermittent emesis. avss. comfortable. abd soft. tubes secure. RLQ fistula site remains nicely closed. i spoke with dr. sears earlier today who has agreed to help with Elen's care in the outpatient setting. we discussed a goal of discharge tomorrow - she is requesting because of her fiance's schedule - encouraged tomorrow instead. we discussed minimizing her ativan and phenergan ( she is requesting this combo frequently). she is requesting more IVF despite receiving adequate quantities-will remove K from IVF today given adeq potassium levels-she is receiving adequate hydration via IVF and TF with flushes. we discussed her normalization of her LFT/hepatitis resolution. she has been provided psychiatrist reccs by hospital . after further lengthy discussion with nursing staff present, Elen verbalized her commitment to stay the course for now. she acknowledges that improvement will be measured in baby steps. she acknowledged that she is not a threat to herself and is not having further active suicidal ideations. we discussed her challenges remembering prior conversations - she has started to keep a log. it was noted that she needs to allow her providers to best extend care to her rather than Elen trying to always be in control of her care plan. extensive questions again answered. her fiance arrived at the end of our discussion and was updated as well. weekend events reviewed with Dr. Monaco. Patient seen by Claudia Tarango today - i left her a VM to review. only new physical complaints are persistent emesis x4 today. she notes leakage around her j tube increasing. avss. comfortable. > 90 minutes spent in reviewing patient documented notes regarding her GI future, fear over current situation, concerns about what if things don't work, when can she return to school, why can't she have surgery, what is a quick fix for her chronic issues....... we discussed her comments on suicidal ideations - she is not currently having these thoughts. she acknowledged her difficulty losing control and lack of tools to deal with her current situation. she acknowledged and agreed that she needs a dedicated psychiatrist and requests references here in [place]. she states that she connected with dr. sears and would like to have him as her outpatient gi md. we discussed again that surgery is NOT an option. we discussed leaving her gtube clamped (and possibly exchanging for a lower profile tube if available). we discussed that she will likely not be able to return to school this year. we discussed that her goals are to be able to eat and wean off tube feeds and IV (she states that she appropriately dislikes living like this). we discussed her unusual reactions when given optimistic news. we discussed obtaining additional opinions regarding my surgical reccs. we discussed her need to let go of her control over her situation and let her providers guide her through this process rather than herself. extensive questions again entertained. will obtain jtube study tomorrow with possible replacement. will repeat labs in am. we discussed an end goal of discharge this week - will await psych reccs. will increase neurontin - no more narcotics appropriate. will change nausea meds. care plan reviewed multiple times throughout day with CM and nursing staff. no new overnight events. patient tearful initially. last nights conversation reiterated. c/o generalized abdominal discomfort. notes emesis x3. no other new concerns. avss. comfortable. abd soft, flat. fiance and nursing staff present at bedside. discussed multiple issues today. we spoke of her comments last mike relating to SI/physician assisted suicide - she states that she is not currently a threat to herself - she is still having thoughts but not actively interested in pursuing them at this time. we spoke about her normal emptying study and the options that are now open to her. we spoke about needing to involved a moth exterminator therapist to help with her long standing eating dysfunction. we discussed having claudia tarango return to speak with her on friday. 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 we discussed strategies for re- implementing po intake little by little - may be able to start feeding her gtube small volumes daily - she is encourage to start eating ad derek. we discussed permanent discontinuation of her narcotics which she has no role for at this time - I am adding neurontin for her generalized discomfort which may have multiple benefits related pain, depression/anxiety.... we discussed the potential role for MMJ/edibles which i have not experience - they plan to look into this further. she will stay in hospital over the weekend to focus on the above efforts and to ensure she remains safe. will enlist PT/OT as well. plan discussed with CM. all questions entertained in detail. LVM for [facility] GI service earlier as well. repeat gastric emptying study essentially same as [facility] - computer artifact secondary to small bowel overlay making 16% residual food at 4 hours an overestimate. EBV+. LFT improving. VSS. patient distraught and anxious over entire situation. >90 minutes spent with patient and mom discussing care plan options. no role for surgical intervention reiterated. i remain encouraged with the new findings. i encourage her to stop draining her gtube and start attempting to focus on learning to re-eat. she needs a comprehensive care team with therapist/central sterile technician/providers which is lacking locally. her acute infectious concerns appear to be resolved - to this end, will dc invanz on discharge. she will require PICC replacement to continue with her home hydration on discharge. she will need to continue with her jtube feeds until she his better able to tolerate po. patient having difficulty focusing on moving forward given her anxiety and appropriate frustration over her situation. extensive questions answered. she has an incredibly supportive family. decent night. still complains of vomiting 500cc per episode - 3x since yesterday. feels better with IVF. avss. exam unchanged. CD from [facility] in [facility] reviewed - gastric emptying study - normal study at 4 hours. these findings are distinctly different than her prior serial studies over the past few months. her LFT are starting to trend down. she has been afebrile with a normal WBC on Invanz. she is hemodynamically normalized. i discussed these finding in detail with patient. these findings would dispute the need for surgical intervention. she was extremely tearful over this news. we discussed further her past history of eating concerns and depression/anxiety. while her studies from our initial visits in august were completely abnormal with excessive delayed gastric emptying, i am encouraged that there appears to be radiographic progress when reviewing her latest CT from [facility] moving forward to her current emptying study. i remain intrigued that she still is unable to eat and am starting to question how much of her ongoing eating challenges may have a psychosomatic component in contrast to her seemingly improving imaging studies. we discussed how her anxiety/depression is undoubtedly playing into some of these issues regardless of the imaging findings (she has not worked with her local therapist because of all of her recent side issues). we compromised on repeating/confirming her emptying study in am. if remains normal, no surgery will be needed. will review additional options with GI - left word for dr. soriano. while she is completely distraught over these findings/suggestions, i see this as encouraging news and possibly opening new strategies for treatment. no new complaints overnight. appreciate GI input. she is generally feeling better today than admission. no new complaints. she is still requiring continuous IVF for hydration. her LFT have slightly increased. she has no new gi complaints. her chronic nausea and emesis continue. her mother is present at bedside today. avss. appears much better hydrated. pupils not sunken today. abd soft. PICC site clean. gastroparesis, resolved dehydration and hypokalemia, increased LFT - etiology unclear. patient has provided her nuc study today - will review with rads. PIV placed and PICC to be removed today given recent fevers/malaise/increased LFT despite neg blood cultures and improvement with Invanz - I am not clear as to her current / most recent source of infection - she is clinically better - she has received innumerous recent radiation based studies and am holding off any further xrays if possible. will plan to replace PICC later in week pending lab trend. care plan was extensively discussed with patient and mom as well as nursing staff and GI ( today and previously). we are leaning toward proceeding with a gastrectomy with mariah en y reconstruction once current LFT/infectious issues concluded ( likely next week). risks and benefits were reviewed extensively again today. she is failing to thrive and strongly desiring to proceed with surgical intervention. she is aware that this is an irreversible procedure. her mom is also in agreement. final reccs still to follow. Plan: 04/08/17 21:22 04/09/17 18:36 04/10/17 19:34 04/11/17 16:34 04/14/17 19:54 04/14/17 20:05 04/15/17 17:25 04/16/17 17:32 Objective: Vital Signs Temp Pulse Resp BP Pulse Ox 37 C 121 H 12 100/73 98 04/16/17 16:00 04/16/17 16:00 04/16/17 16:00 04/16/17 16:00 04/16/17 16:00 Laboratory Results 04/16/17 05:25 04/16/17 05:25 04/15/17 04/16/17 04/17/17 05:59 05:59 05:59 Intake Total 730 2290 Output Total 2875 1550 200 Balance -2145 740 -200 PT 14.9 SEC (12.0-15.0) 04/09/17 04:36 INR 1.15 (0.83-1.16) 04/09/17 04:36 ICD10 Worksheet Patient Problems: Problems Problem Status Onset Abdominal abscess Acute Dehydration Acute Hypochloremia Acute Near syncope Acute Shortness of breath Acute
--- NOTE | 2017-04-16 17:51 | PDIAF ---
- Diagnosis Diagnosis: hepatitis, vomiting, intestinal pseudo-obstruction Code Status: Full Code - Medication Management Discharge Medications: Medications to Continue on Transfer Ascorbic Acid [Vitamin C 500 mg (*)] 500 mg PO DAILY 12/03/16 [Last Taken 20:00] Citalopram [CeleXA 20 MG] 20 mg TUBE HS 12/03/16 [Last Taken 03/25/17 20:00] lamoTRIgine [LamICTAL 100 MG (*)] 100 mg TUBE HS 12/03/16 [Last Taken 03/25/17 20:00] Dicyclomine [Bentyl 10 MG (*)] 20 mg TUBE Q4H PRN 02/03/17 [Last Taken 03/25/17 20:00] Multivitamins [Multivitamin (*)] 1 each TUBE DAILY 02/03/17 [Last Taken 20:00] Alteplase [Cathflo Activase 2 mg (*)] 2 mg IVP PRN PRN vial 02/06/17 [Last Taken 03/25/17 20:00] Lansoprazole [PREVACID 30mg/10ml susp (Adult) (*)] 30 mg PO BID #600 ml [Last Taken 03/25/17 20:00] 1/2 Ns [1/2 Ns 1000 ML (RX)] 75 ml IV CONT 14 Days #28 bag 03/09/17 [Last Taken 03/25/17 20:00] Hydrocod/APAP 7.5/325 in 15Ml [Hycet Oral Liquid (*) 7.5MG-325MG/15ML] 10 - 20 ml TUBE Q4 PRN #800 ml 03/09/17 [Last Taken 03/25/17 20:00] Ondansetron Odt [Zofran Odt 4 mg (*)] 4 mg SL Q4 PRN #30 tab 03/09/17 [Last Taken 03/25/17 20:00] Potassium Chloride Po [Potassium Chloride 20 mg/15 ml (*)] 20 meq TUBE DAILY # 750 ml 03/09/17 [Last Taken 03/25/17 20:00] Acetaminophen [Tylenol 325mg (*)] 650 mg PO Q4HRS PRN tab 04/16/17 [Last Taken Unknown] Alteplase [Cathflo Activase 2 mg (*)] 2 mg IVP PRN PRN vial 04/16/17 [Last Taken Unknown] Gabapentin [Neurontin 300 MG (*)] 300 mg TUBE BID #90 cap 04/16/17 [Last Taken Unknown] Ibuprofen [Motrin (*)] 200 - 600 mg PO Q6H PRN tab 04/16/17 [Last Taken Unknown ] LORazepam [Ativan (*)] 1 - 2 mg TUBE Q6HRS PRN #30 tab 04/16/17 [Last Taken Unknown] Ns [NS IV 1000ml (*)] 2,000 ml IV DAILY #0 04/16/17 [Last Taken 03/25/17 20:00] Promethazine HCl [Phenergan 25mg (*)] 12.5 mg TUBE Q6HRS PRN #30 tab 04/16/17 [ Last Taken Unknown] traMADol [Ultram 50 mg (*)] 50 mg PO Q6HRS PRN tab 04/16/17 [Last Taken Unknown ] Discharge Medications: Refer to the Discharge Home Medication list for PRN reason. PICC Care - Routine: Yes - Orders Services needed: Home Care, Registered Nurse, [facility] Home Care Face to Face: I certify that this patient was under my care and that I had the required [id number] encounter meeting the encounter requirements on the discharge day. My findings support the fact that the patient is homebound as defined in Home Care Face to Face Continued: CMS Chapter 7 Medicare Benefits Manual 30.1.1 , The condition of the patient is such that there exists a normal inability to leave home and consequently, leaving home would require a considerable and taxing effort. Isolation Type: None Diet Recommendation: no restrictions on diet Diet Texture: Regular Texture Diet Tube feeding: continue [employer] feeds at 75cc/hr with flushes Activity/Weight Bearing Restrictions: none - Labs/Radiology BMP Date: 04/28/17 (weekly) CBC w/diff Date: 04/21/17 CMP Date: 04/21/17 Call or Fax Lab and Imaging Results to: teddy yao md [phone] - Follow Up Care Current Providers and Referrals: Umu Hill DO [Primary Care Provider] - Adelina Moya MD [Non Staff Provider (MD)] - Teddy Yao MD [Medical Doctor] - Alex Leonard MD [Medical Doctor] -
[2017-04-16] MEDS ORDERED: HYDROCODONE/APAP 5/325 TAB PO ONE (21:30)
[2017-04-16] MEDS: CITALOPRAM 20 MG TAB TUBE SCH (21:30)
[2017-04-16] MEDS: lamoTRIgine 100 MG TAB TUBE SCH (21:30)
[2017-04-17] MEDS: PROMETHAZINE HCL 25 MG TAB TUBE PRN ×3 (02:30→15:46)
[2017-04-17] MEDS: NS 1,000 ML IV SCH (05:32)
[2017-04-17] MEDS: LORazepam 1 MG TAB TUBE PRN ×2 (05:35→11:23)
--- NOTE | 2017-04-17 08:25 | SOAPPROG ---
SOAP Progress Note Assessment/Plan: Assessment: no new overnight events. patient and fiance sleeping peacefully. vs unchanged. exam unchanged. home today. will contact psych and GI regarding f/ u info. will see back in 2 weeks. will keep tube feeds at 75cc/hr. ok for short term scheduled phenergan to help with nausea. nursing staff present throughout our discussion. all questions entertained. positive discussion with patient. she made an appt with psychiatry for friday. she called dr. sears's office. she is researching additional therapists as well. she verbalized feeling more clear and that she needs to address the above issues moving forward. she continues to vomit. she vomits less with phenergan. afebrile p 90-120. labs improved - k 4.6 today, wbc 11. exam unchanged. she was laying in bed laughing with her fiance today. she is ready for discharge tomorrow - will need to coordinate home care prior. we discussed obtaining a MMJ card - I am in support of pursuing these efforts. I will contact her planned psychiatrist this week to update her of elen's history. nursing staff and CM aware of plan. G and J tubes changed today. no new complaints - still with intermittent emesis. avss. comfortable. abd soft. tubes secure. RLQ fistula site remains nicely closed. i spoke with dr. sears earlier today who has agreed to help with Elen's care in the outpatient setting. we discussed a goal of discharge tomorrow - she is requesting because of her fiance's schedule - encouraged tomorrow instead. we discussed minimizing her ativan and phenergan ( she is requesting this combo frequently). she is requesting more IVF despite receiving adequate quantities-will remove K from IVF today given adeq potassium levels-she is receiving adequate hydration via IVF and TF with flushes. we discussed her normalization of her LFT/hepatitis resolution. she has been provided psychiatrist reccs by hospital CM. after further lengthy discussion with nursing staff present, Elen verbalized her commitment to stay the course for now. she acknowledges that improvement will be measured in baby steps. she acknowledged that she is not a threat to herself and is not having further active suicidal ideations. we discussed her challenges remembering prior conversations - she has started to keep a log. it was noted that she needs to allow her providers to best extend care to her rather than Elen trying to always be in control of her care plan. extensive questions again answered. her fiance arrived at the end of our discussion and was updated as well. weekend events reviewed with Dr. Monaco. Patient seen by Claudia Tarango today - i left her a VM to review. only new physical complaints are persistent emesis x4 today. she notes leakage around her j tube increasing. avss. comfortable. > 90 minutes spent in reviewing patient documented notes regarding her GI future, fear over current situation, concerns about what if things don't work, when can she return to school, why can't she have surgery, what is a quick fix for her chronic issues....... we discussed her comments on suicidal ideations - she is not currently having these thoughts. she acknowledged her difficulty losing control and lack of tools to deal with her current situation. she acknowledged and agreed that she needs a dedicated psychiatrist and requests references here in [place]. she states that she connected with dr. sears and would like to have him as her outpatient gi md. we discussed again that surgery is NOT an option. we discussed leaving her gtube clamped (and possibly exchanging for a lower profile tube if available). we discussed that she will likely not be able to return to school this year. we discussed that her goals are to be able to eat and wean off tube feeds and IV (she states that she appropriately dislikes living like this). we discussed her unusual reactions when given optimistic news. we discussed obtaining additional opinions regarding my surgical reccs. we discussed her need to let go of her control over her situation and let her providers guide her through this process rather than herself. extensive questions again entertained. will obtain jtube study tomorrow with possible replacement. will repeat labs in am. we discussed an end goal of discharge this week - will await psych reccs. will increase neurontin - no more narcotics appropriate. will change nausea meds. care plan reviewed multiple times throughout day with CM and nursing staff. no new overnight events. patient tearful initially. last nights conversation reiterated. c/o generalized abdominal discomfort. notes emesis x3. no other new concerns. avss. comfortable. abd soft, flat. fiance and nursing staff present at bedside. discussed multiple issues today. we spoke of her comments last mike relating to SI/physician assisted suicide - she states that she is not currently a threat to herself - she is still having thoughts but not actively interested in pursuing them at this time. we spoke about her normal emptying study and the options that are now open to her. we spoke about needing to involved a intermediate accountant therapist to help with her long standing eating dysfunction. we discussed having claudia tarango return to speak with her on friday. we spoke about working with a consistent fire production operator who she can relate to moving forward for followup management of her LFT and chronic management of her prior motility issues. we discussed strategies for re- implementing po intake little by little - may be able to start feeding her gtube small volumes daily - she is encourage to start eating ad derek. we discussed permanent discontinuation of her narcotics which she has no role for at this time - I am adding neurontin for her generalized discomfort which may have multiple benefits related pain, depression/anxiety.... we discussed the potential role for MMJ/edibles which i have not experience - they plan to look into this further. she will stay in hospital over the weekend to focus on the above efforts and to ensure she remains safe. will enlist PT/OT as well. plan discussed with CM. all questions entertained in detail. LVM for [facility] GI service earlier as well. repeat gastric emptying study essentially same as [facility] - computer artifact secondary to small bowel overlay making 16% residual food at 4 hours an overestimate. EBV+. LFT improving. VSS. patient distraught and anxious over entire situation. >90 minutes spent with patient and mom discussing care plan options. no role for surgical intervention reiterated. i remain encouraged with the new findings. i encourage her to stop draining her gtube and start attempting to focus on learning to re-eat. she needs a comprehensive care team with therapist/interpersonal communications professor/providers which is lacking locally. her acute infectious concerns appear to be resolved - to this end, will dc invanz on discharge. she will require PICC replacement to continue with her home hydration on discharge. she will need to continue with her jtube feeds until she his better able to tolerate po. patient having difficulty focusing on moving forward given her anxiety and appropriate frustration over her situation. extensive questions answered. she has an incredibly supportive family. decent night. still complains of vomiting 500cc per episode - 3x since yesterday. feels better with IVF. avss. exam unchanged. CD from [facility] in [facility] reviewed - gastric emptying study - normal study at 4 hours. these findings are distinctly different than her prior serial studies over the past few months. her LFT are starting to trend down. she has been afebrile with a normal WBC on Invanz. she is hemodynamically normalized. i discussed these finding in detail with patient. these findings would dispute the need for surgical intervention. she was extremely tearful over this news. we discussed further her past history of eating concerns and depression/anxiety. while her studies from our initial visits in august were completely abnormal with excessive delayed gastric emptying, i am encouraged that there appears to be radiographic progress when reviewing her latest CT from [facility] moving forward to her current emptying study. i remain intrigued that she still is unable to eat and am starting to question how much of her ongoing eating challenges may have a psychosomatic component in contrast to her seemingly improving imaging studies. we discussed how her anxiety/depression is undoubtedly playing into some of these issues regardless of the imaging findings (she has not worked with her local therapist because of all of her recent side issues). we compromised on repeating/confirming her emptying study in am. if remains normal, no surgery will be needed. will review additional options with GI - left word for dr. soriano. while she is completely distraught over these findings/suggestions, i see this as encouraging news and possibly opening new strategies for treatment. no new complaints overnight. appreciate GI input. she is generally feeling better today than admission. no new complaints. she is still requiring continuous IVF for hydration. her LFT have slightly increased. she has no new gi complaints. her chronic nausea and emesis continue. her mother is present at bedside today. avss. appears much better hydrated. pupils not sunken today. abd soft. PICC site clean. gastroparesis, resolved dehydration and hypokalemia, increased LFT - etiology unclear. patient has provided her nuc study today - will review with rads. PIV placed and PICC to be removed today given recent fevers/malaise/increased LFT despite neg blood cultures and improvement with Invanz - I am not clear as to her current / most recent source of infection - she is clinically better - she has received innumerous recent radiation based studies and am holding off any further xrays if possible. will plan to replace PICC later in week pending lab trend. care plan was extensively discussed with patient and mom as well as nursing staff and GI ( today and previously). we are leaning toward proceeding with a gastrectomy with mariah en y reconstruction once current LFT/infectious issues concluded ( likely next week). risks and benefits were reviewed extensively again today. she is failing to thrive and strongly desiring to proceed with surgical intervention. she is aware that this is an irreversible procedure. her mom is also in agreement. final reccs still to follow. Plan: 04/08/17 21:22 04/09/17 18:36 04/10/17 19:34 04/11/17 16:34 04/14/17 19:54 04/14/17 20:05 04/15/17 17:25 04/16/17 17:32 04/17/17 08:22 Objective: Vital Signs Temp Pulse Resp BP Pulse Ox 37.1 C 108 H 16 95/60 L 97 04/16/17 22:54 04/16/17 22:54 04/16/17 22:54 04/16/17 22:54 04/16/17 22:54 Laboratory Results 04/16/17 05:25 04/16/17 05:25 04/16/17 04/17/17 04/18/17 05:59 05:59 05:59 Intake Total 2290 5148 Output Total 1550 2350 Balance 740 2798 PT 14.9 SEC (12.0-15.0) 04/09/17 04:36 INR 1.15 (0.83-1.16) 04/09/17 04:36 ICD10 Worksheet Patient Problems: Problems Problem Status Onset Abdominal abscess Acute Dehydration Acute Hypochloremia Acute Near syncope Acute Shortness of breath Acute
[2017-04-17 08:31] VITALS: BP 119/87; PULSE 135; RESP 18; TEMP 97.4; O2SAT 99
[2017-04-17] MEDS: ASCORBIC ACID 500 MG TAB TUBE SCH (09:52)
[2017-04-17] MEDS: GABAPENTIN 300 MG CAP TUBE SCH (09:52)
[2017-04-17] MEDS: MULTIVITAMINS 1 EACH TAB PO SCH (09:52)
[2017-04-17] MEDS: LANSOPRAZOLE SUSP 30MG/10ML UDSYR (Adult) TUBE SCH (11:24)
[2017-04-17] MEDS: METOCLOPRAMIDE 10 MG/10 ML UDL TUBE PRN (14:42)
--- NOTE | 2017-04-18 17:48 | ASDISCHSUM ---
Discharge Information Plan Status:IV ABX/Infusion Medically Cleared to Leave: Discharge Date:04/17/2017 04:58 PM D/C Disposition:Home Health Service ADT D/C Disposition:Home, Routine, Self-Care Projected Discharge Date:04/17/2017 11:00 AM Transportation at D/C:Family Discharge Delay Reason: Follow-Up Date:04/17/2017 11:00 AM Discharge Slot: Final Diagnosis: Placement Information Referral Type:*Home Health Care Services Referral ID:[id number] Provider Name:[facility] Address 1:[address] Address 2: City:[facility] Selection Factors: State:[place] Referral Type:Home Infusion Referral ID:[id number] Provider Name:[facility] ([facility] Address 1:[address] Address 2: City:[place] Selection Factors: State:[place] Referral Type:Home Infusion Referral ID:[id number] Provider Name:[facility] - Address 1:[address] Phone Number: Address 2: Fax Number: City:[place] Selection Factors: State:[place] Patient Contact Information Contact Name:AGUILAR Relationship:Other Address: Work Phone: City: [facility] Phone: [facility] Code: Email: Financial Information Financial Class:HMO and PPO Plans Primary Plan Desc: OUT OF STATE PPO Primary Plan Number:[id number] Secondary Plan Desc:[place] Secondary Plan Number:[id number] Assessment Information [facility] CM Progress Note CM Note CM Note Notes: Patient admitted for sepsis evaluation. She has a complicated medical history. She was last discharged from [facility] 03/09/17 and has been compliant with all discharge instructions. She has been living with her fiance, receiving home health through [facility] and infusion services through [facility]. She will be followed by surgery. Case Management will follow as well. Date Signed: 04/05/2017 12:00 PM Electronically Signed By:Sarina Stacy RN [facility] CM Progress Note CM Note CM Note Notes: Spoke with patient today who confirms she has opted for surgery. Patient states Dr. Yao thinks she will be ready next Saturday, April 15, 2017. Patient has requested a visit from the hospital press tender long goods/corner trimmer operator so she can get information on how to eat after her surgery. Dr Yao has already ordered this. Patient will most likely d/c home with [facility] Health support and [facility] for infusion. CM will follow for any new needs that might arise for patient after surgery. Date Signed: 04/09/2017 11:10 AM Electronically Signed By:Jennifer Hernandez LCSW [facility] CM Progress Note CM Note CM Note Notes: Today SWer reingaged with all of Pt's outpatient agency supports. Called Nancy at [facility] (IV fluids), Leticia at [facility] (enteral feeds), and Shell at [facility] (RN). Updated all on Pt's care and sent Allscripts updates to all. All state they are on board to resume care at d/c. Pt is still staying at el Solis's family's home: [address] [place] [address] [place] [phone] Nancy - Edward - Leticia - [facility] - Shell - [facility] ([facility]) - (note: home nurse working with Pt. is Dian Back) Pt's stomach and GI system now working and moving. Pt.'s reaction to learning that she would NOT need a gastrectomy surgery was not consistent with the good news. Due to Pt's concerning behavior, Eyad called Claudia Milner, behavioral health RN to see if she could see Pt. for an updated evaluation. Claudia not available today. Asked her to see Pt. on Friday. Consulted with bedside RNs who are concerned about Pt's behavior. MD was able to meet with Pt. and they had a conversation that stated was hopeful. MD to keep Pt. through the weekend and is in favor of consult w/ Claudia Milner on Friday. CMs to follow for d/c POC. Date Signed: 04/11/2017 05:12 PM Electronically Signed By:Melyssa Silva LCSW [facility] CM Progress Note CM Note CM Note Notes: Claudia Milner is in process of psych consult for patient. Left a message for her as we will need to collaborate to plan for patient's D/C. Dr. Yao has determined patient does not need surgery at this time. CM will follow. Date Signed: 04/14/2017 03:25 PM Electronically Signed By:Jennifer Hernandez LCSW [facility] CM Progress Note CM Note CM Note Notes: CM spoke w/ Dr. Yao regarding d/c POC. CM left a msg for a call back from Claudia Milner. CM met w/ pt for dispo planning. Pt was able to identify some coping skills. CM printed out list of therapists in the [place] area. CM provided pt w/ name and phone number for a psychiatrist. Pt plans on going back to school. Pt reports that she has been throwing up a lot today. CM to follow. Plan: HC, RN, SW and outpatient psych services Date Signed: 04/15/2017 05:01 PM Electronically Signed By:BRENDA Farah [facility] CM Progress Note CM Note CM Note Notes: Provided supportive counseling to Pt. in room today. Called Claudia Alf, behavioral health RN to consult. No notes in chart yet and not able to reach her. Left vm msg. Plan for d/c tomorrow w/ [facility], [facility] IV saline for hydration, and [facility] enteral feeds. Date Signed: 04/16/2017 05:18 PM Electronically Signed By:Melyssa Silva LCSW Case Management Discharge Plan Note Case Management Discharge Discharge Order Complete? Answers: Yes Patient to Obtain Answers: via Family Medications Transportation Arranged Answers: Family/Friends Faxed Final Orders Answers: Yes Notes: through Allscripts Agency/Facility Transfer Answers: Yes Report Printed & Faxed to Receiving Agency Discharge Comments Notes: Pt. d/c'ed today to home of her fiance: [address] [place] [address]. Will resume homecare with [facility] and nurse Dian Back. [facility] to provide saline for hydration and [facility] to provide enteral [employer] feeds. All sent d/c paperwork through [employer] and all verified would resume services through phone contact. SWer met with Pt. again for supportive counseling. Pt. very engaged. Date Signed: 04/17/2017 04:56 PM Electronically Signed By:Melyssa Silva LCSW Intervention Information
--- NOTE | 2017-04-20 14:29 | GDS ---
[f rep st] DISCHARGE SUMMARY REASON FOR ADMISSION: Fever, elevated liver enzymes, hypokalemia. HISTORY OF PRESENT ILLNESS: 21-year-old female with a history of multiple recent hospital admissions . 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 She was initially admitted approximately 6 months ago with willardto kalinais after returning from [place], where a continent ileostomy had been created. She underwent e xploratory laparotomy with drainage of an abdominal abscess. Over the ensuing months, she has had an extremely challenging case related to persistent nausea and vomiting initially secondary to superior mesenteric artery syndrome, malnutrition and gastroparesis. Treatment measures for that have includ ed surgical gastrojejunostomy with venting gastrostomy placement and feeding jejunostomy placement. 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 In addition to her jejunostomy feed s, she has been receiving regular IV fluid challenges at home with the assist of home care nursing. HOSPITAL COURSE: She was admitted on this particular admission with severe hypokalemia of 2.6 the ev ening prior to admission, new elevated liver enzymes, fever up to 103 in the outpatient setting and g eneralized failure to thrive. During this workup, she was seen by surgical service, gastroenterology service, behavioral health nurse as well as Case Management. Her liver enzyme workups have disclose d evidence of positive Emily-Mena virus only with normal autoimmune markers. Right upper quadrant imaging showed no evidence of cholelithiasis or other visualized abnormalities. This is all felt to be related to noninfectious medical hepatitis likely multifactorial in origin, which was improving by her time of discharge. The patient's gastroparesis workup included reimaging with nuclear imaging studies, which showed norm al gastric transit on this study and one a couple of weeks prior at the [facility] in [facility]. Despite these findings, the patient still suffered from ongoing nausea and vomiti ng. Significant historical background history and current history continue to confound her ongoing medica l management needs related to anxiety, depression, and a past history of eating disorder and current history of eating dysfunction. Extensive time was spent pertaining to these issues throughout her hospital course. She was ultimate ly able to be discharged to home on the , afebrile, with improving liver enzymes. Electrolytes a ll replete. It had been determined that no further surgical intervention would be necessary or warra nted at this time. The patient's response to these findings continued to be curiously unenthusiastic. The patient agree d to follow up with Dr. Leonard from [facility], whom I contacted to help facilitate this follow up. The patient will follow up with as a new psychiatrist to help with issues pertain ing to her anxiety and depression, as these were felt to be a significant contributor to her ongoing nausea and vomiting. She has an appointment scheduled for Friday. The patient was also in the proce ss of interviewing a new psychotherapist to help with ongoing coping skills. She will be seen by Dr. Yao in followup in the next couple of weeks. Other incidental notes included replacement of the patient's gastrostomy and feeding jejunostomy tube s as well as PICC lines during her hospitalization in dealing with efforts to manage intermittent bryon kage concerns and possible infectious concerns related to those particular tubes and lines. She is to resume all pre-hospital medications. She was given new prescriptions for Phenergan as need ed for nausea. She will continue to try advancing her diet as able. Home care nursing had been cont acted and re-coordinated upon discharge. Electrolytes will be checked next week. Full discharge ins tructions were explained to the patient and ele in great detail on multiple occasions prior to renee reed. /[id number]/MODL
== END 2017-04-17 16:58 | disposition home or self-care (01) | DRG 641 ==
LOC: F2W 13:31 → F3E 04-05 17:16
PROVIDERS: ADMIT Surgery; ATTEND Surgery
PROC: 02HV33Z Insertion of Infusion Device into Superior Vena Cava, Percutaneous Approach (ICD-10-PCS; 2017-04-12)
PROC: 0J2TXYZ Change Other Device in Trunk Subcutaneous Tissue and Fascia, External Approach (ICD-10-PCS; principal; 2017-04-15)
DX: E87.6 Hypokalemia (principal); K55.1 Chronic vascular disorders of intestine; E46 Unspecified protein-calorie malnutrition; R62.7 Adult failure to thrive; B27.00 Gammaherpesviral mononucleosis without complication; K31.84 Gastroparesis; E86.0 Dehydration; F41.8 Other specified anxiety disorders; Z93.1 Gastrostomy status; Z93.2 Ileostomy status
CPT/HCPCS: 82390-90; 82784-90; 83516-90; 86255-90; 86644-90; 86645-90; 86664-90; 86665-90; A9541; C1729; C1751; C1769; G0472; J1170; J1335; J1885; J2060; J2405; J3010; Q9967

== ENCOUNTER 2017-06-10 12:45 | Inpatient (IN) | payer BC, MEDICAID ==
[2017-06-10] MEDS ORDERED: ALPRAZolam 0.5 MG TAB PO PRN (15:54)
[2017-06-10] MEDS: D5W 1/2 NS W/ 20 KCl/L 1,000 ML IV SCH (16:14)
[2017-06-10] MEDS: LR 1,000 ML IV SCH ×2 (16:21→17:44)
[2017-06-10] MEDS: LORazepam 1 MG TAB PO SCH ×2 (16:37→17:44)
[2017-06-10] MEDS: PROMETHAZINE HCL 25 MG TAB PO SCH ×2 (16:38→23:23)
[2017-06-10] MEDS: ALPRAZolam 1 MG TAB PO PRN (16:54)
--- NOTE | 2017-06-10 18:41 | GHP ---
[f rep st] PREOP HISTORY AND PHYSICAL DATE OF ADMISSION: 06/10/2017 REASON FOR ADMISSION: Nausea, vomiting, dehydration, hypokalemia. HISTORY OF PRESENT ILLNESS: 21-year-old female with an extremely complex past history. Please refer to her multiple prior admissions. She had been discharged from [facility] after multiple visits for challenges related to intestinal pseudo-obstruction requiring multiple admissions, surgical interventions and therapies. Please refer to all prior notes for further historical details. Since her last discharge here, she had been admitted to [facility] in [place], the first time for a staph line sepsis related to a PICC line, which was subsequently removed and managed with antibiotics. Highlights of that visit included a transesophageal echocardiogram which showed no evidence of valve vegetations. She was discharged and readmitted with pneumonia, which was managed with antibiotics. In that interim time, the patient had been tolerating her J-tube feeds with some oral intake and had been gaining weight nicely. Over the last 10 days, she has had progressive emesis and inability to tolerate further oral intake. Her PICC line has been sluggish and she has not been able to give herself her usual 2 L of fluid at home. She states that her home health care agency has discontinued home care services since her last hospital admission. She has been admitted to the emergency room on 3 occasions with potassium levels as low as 2.2 and 2.4 by report. She received 100 mEq yesterday with an increase from 2.4 to 2.5. She presents to the office today with complaints of near-syncope and lightheadedness, dizziness, and generalized malaise. She is being admitted this time for further management. PAST MEDICAL HISTORY: GERD, ovarian intestinal pseudo-obstruction. PAST SURGICAL HISTORY: Multiple exploratory laparotomies with colectomies, reanastomosis, anastomotic leaks with 3 explorations for infection, most recently with a total abdominal colectomy with constant ileostomy, gastrojejunostomy, PEG tube placement, feeding J-tube placement. MEDICATIONS: Celexa, lamotrigine, Pepcid 20 mg daily, [employer] tube feeds 80 cc per day, vitamin C, Phenergan 6.25 mg b.i.d., Ativan as needed, most recently , she states once per week, potassium chloride 40 mEq daily. ALLERGIES: Mustard, casein. SOCIAL HISTORY: No alcohol, no tobacco. 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 She is engaged to [employer]. FAMILY HISTORY: Noncontributory. PHYSICAL EXAMINATION: GENERAL: The patient is alert and appropriate, significantly better nourished that her last visit. HEART: Regular. LUNGS: Clear. ABDOMEN: Soft with areas of promising weight gain. Tubes were all secured with her G-tube secured at 4 cm. J-tube secured. Ileostomy catheter secure. EXTREMITIES: Without edema. SKIN: Less flaky than prior visits. NEUROLOGIC: The patient is appropriately anxious abdomen depressed. IMPRESSION: 1. 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 2. Gastroparesis-improved. 3. Near syncope. 4. Hypokalemia. 5. Dehydration. 6. Failure to thrive at home. 7. Depression. PLAN: The patient is being admitted for PICC line replacement, fluid rehydration, potassium supplementation, as well as nausea control. Care plan was discussed in detail in the office earlier this afternoon. Further recommendations pending laboratory assessment and hospital course. /[id number]/MODL MTDD
[2017-06-10] MEDS ORDERED: POTASSIUM CL 20 MEQ/15 ML UDCUP TUBE ONE (20:00)
[2017-06-10] MEDS ORDERED: MAGNESIUM SULF 2 GM/WATER 50 ML IV ONE (20:00)
[2017-06-10] MEDS: FAMOTIDINE 20 MG TAB PO SCH (20:12)
[2017-06-10] MEDS: lamoTRIgine 100 MG TAB PO SCH (20:12)
[2017-06-10] MEDS: POTASSIUM CL 20 MEQ TAB PO SCH (20:12)
[2017-06-10] MEDS: CITALOPRAM 20 MG TAB PO SCH (20:12)
[2017-06-10] MEDS: POTASSIUM Cl (KCl) 10 MEQ in NS 100 ML IV SCH ×3 (21:19→23:23)
[2017-06-10] MEDS: LORazepam 1 MG TAB PO PRN (22:22)
[2017-06-11] MEDS: ALPRAZolam 1 MG TAB PO PRN (00:24)
[2017-06-11] MEDS: POTASSIUM Cl (KCl) 10 MEQ in NS 100 ML IV SCH (00:24)
[2017-06-11] MEDS: PROMETHAZINE HCL 25 MG TAB PO SCH ×5 (05:18→23:00)
[2017-06-11] MEDS ORDERED: LIDOCAINE 1% 300 MG/30 ML SDV ONE (08:03)
--- NOTE | 2017-06-11 08:31 | PDMN ---
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 , gastroparesis, hypokalemia, dehydration , FTT, depression. PICC line needs replaced, anticipate > 2 midnights ongoing med nec care monitoring, and tx.
[2017-06-11] MEDS: ASCORBIC ACID 500 MG TAB PO SCH (10:54)
[2017-06-11] MEDS: MULTIVITAMINS 1 EACH TAB PO SCH (10:55)
[2017-06-11] MEDS: FAMOTIDINE 20 MG TAB PO SCH ×2 (10:55→20:47)
[2017-06-11] MEDS: POTASSIUM CL 20 MEQ TAB PO SCH ×2 (10:55→20:47)
[2017-06-11] MEDS: DICYCLOMINE 10 MG CAP PO PRN ×3 (11:01→21:21)
[2017-06-11] MEDS: LORazepam 1 MG TAB PO PRN ×3 (11:01→20:48)
[2017-06-11] MEDS: KETOROLAC 15 MG/1 ML SDV IVP PRN ×3 (11:01→22:59)
[2017-06-11] MEDS: D5W 1/2 NS W/ 20 KCl/L 1,000 ML IV SCH (12:53)
--- NOTE | 2017-06-11 16:54 | ASMTCMCOM ---
CM Note CM Note Notes: Pt. is a 21-year-old woman admitted with nausea, vomiting, dehydration, and hypokalemia. Pt. with multiple [facility] admissions and complicated medical history. 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 Hx. Depression and FTT. Pt. last d/c'ed from [facility] on 04/18/17. Per H&P, Pt. was admitted to the [facility] in [facility] and to the ED in [facility] "three times" prior to this new admission. Per H&P, Pt's homecare services stopped after her admission to [facility] in [facility]. In the past, Pt. received home services from [facility], [facility] enteral feeds, and [facility] for IV fluids. Note: Pt. has been living at her boyfriend's family's home in [facility]: [address] [place], [place] [address]Joe [facility] [address]. Pt. asked to see SWeyaya today, but when SWeyaya tried, Pt. was in with MD. Plan to see her tomorrow. Eyad also left message for Claudia Milner RN, [employer] who has worked with Pt. extensively and let her know Pt. was admitted again. SW/NIKKY to follow for d/c POC. Date Signed: 06/11/2017 04:54 PM Electronically Signed By:Melyssa Silva LCSW
--- NOTE | 2017-06-11 17:18 | SOAPPROG ---
SOAP Progress Note Assessment/Plan: Assessment:feeling better overall. still lightheaded with activity. k4.1. emesis 1200 today. no other new issues. avss. comfortable. face full with normal skin turgor/color. pupils not sunken. heart reg. lungs clear. abd soft. left arm PICC clean. tubes all secure. setback multifactorial likely resultant from recent PICC sepsis, pneumonia, severe electrolyte disturbance ( intracellular k depletion), dehydration, anxiety/frustration. our goal is for returning to home tomorrow with continued tube feed, IVF bolus (will plan for 3L daily until back to last month's baseline), and po when able. she will continue her increased phenergan dose frequency for now (she states that she was actually on 12.5 rather than 6.25). encouraging short term scheduled ativan at increased frequency to help with nausea / anxiety control. will work with CM to help we re-establishing home care. will need regular labs which have not been sent to our office for review. Andree and Will are on board with this action plan. Plan: 06/11/17 17:13 Objective: Vital Signs Temp Pulse Resp BP Pulse Ox 36.5 C 98 14 101/81 H 89 L 06/11/17 15:34 06/11/17 15:34 06/11/17 15:34 06/11/17 15:34 06/11/17 15:34 Laboratory Results 06/11/17 05:05 06/10/17 06/11/17 06/12/17 05:59 05:59 05:59 Intake Total 2380 600 Output Total 2000 1200 Balance 380 -600 ICD10 Worksheet Patient Problems: Problems Problem Status Onset Abdominal abscess Acute Dehydration Acute Hypochloremia Acute Near syncope Acute Shortness of breath Acute
[2017-06-11] MEDS: CITALOPRAM 20 MG TAB PO SCH (20:48)
[2017-06-11] MEDS: lamoTRIgine 100 MG TAB PO SCH (21:21)
[2017-06-12] MEDS: PROMETHAZINE HCL 25 MG TAB PO SCH ×4 (05:26→19:56)
[2017-06-12] MEDS: KETOROLAC 15 MG/1 ML SDV IVP PRN ×3 (07:38→19:40)
[2017-06-12] MEDS: MULTIVITAMINS 1 EACH TAB PO SCH (07:38)
[2017-06-12] MEDS: FAMOTIDINE 20 MG TAB PO SCH ×2 (07:39→21:22)
[2017-06-12] MEDS: ASCORBIC ACID 500 MG TAB PO SCH (07:39)
[2017-06-12] MEDS: POTASSIUM CL 20 MEQ TAB PO SCH ×2 (07:39→21:22)
[2017-06-12] MEDS: DICYCLOMINE 10 MG CAP PO PRN ×3 (07:39→21:22)
[2017-06-12] MEDS: LORazepam 1 MG TAB PO PRN ×4 (07:39→19:40)
[2017-06-12] MEDS ORDERED: NS 1,000 ML IV ONE ×3 (07:52→13:28)
[2017-06-12] MEDS: ALPRAZolam 1 MG TAB PO PRN (08:02)
--- NOTE | 2017-06-12 13:22 | SOAPPROG ---
SOAP Progress Note Assessment/Plan: Assessment: no new issues. recurrent emesis today am. her ileostomy effluent is thinner with hydration. avss. exam unchanged. creat 1.3. extremely difficult case - current setback appears to be multifactorial - our goal is to get her back to her status 3 weeks ago where she was tolerating small po without ongoing emesis. working with CM to obtain new [facility] agency. i anticipate more hospital admissions over the next few months unfortunately. we discussed adding yogurt/probiotic medications in addition to her phenergan and xanax (she prefers this over ativan). will give additional fluid challenge. we discussed her frequent after hours and weekend phone calls - requested that she and jocybatool call with concerns prior to the weekend or end of day. she states that she is comfortable with this plan. will plan to see back in one week. will refill phenergan and xanax. i feel that she is safe for discharge today with additional IV hydration. care plan reviewed with family and nursing staff. feeling better overall. still lightheaded with activity. k4.1. emesis 1200 today. no other new issues. avss. comfortable. face full with normal skin turgor/color. pupils not sunken. heart reg. lungs clear. abd soft. left arm PICC clean. tubes all secure. setback multifactorial likely resultant from recent PICC sepsis, pneumonia, severe electrolyte disturbance (intracellular k depletion), dehydration, anxiety/frustration. our goal is for returning to home tomorrow with continued tube feed, IVF bolus (will plan for 3L daily until back to last month's baseline), and po when able. she will continue her increased phenergan dose frequency for now (she states that she was actually on 12.5 rather than 6.25). encouraging short term scheduled ativan at increased frequency to help with nausea / anxiety control. will work with CM to help we re-establishing home care. will need regular labs which have not been sent to our office for review. Khang are on board with this action plan. Plan: 06/11/17 17:13 06/12/17 13:06 06/12/17 13:22 Objective: Vital Signs Temp Pulse Resp BP Pulse Ox 36.4 C 99 16 95/54 L 99 06/12/17 08:00 06/12/17 08:00 06/12/17 08:00 06/12/17 08:00 06/12/17 08:00 Laboratory Results 06/12/17 05:30 06/11/17 06/12/17 06/13/17 05:59 05:59 05:59 Intake Total 2380 1600 Output Total 1999 2149 Balance 380 -550 ICD10 Worksheet Patient Problems: Problems Problem Status Onset Abdominal abscess Acute Dehydration Acute Hypochloremia Acute Near syncope Acute Shortness of breath Acute
--- NOTE | 2017-06-12 13:33 | PDIAF ---
- Diagnosis Code Status: Full Code - Medication Management Discharge Medications: Medications to Continue on Transfer Ascorbic Acid [Vitamin C 500 mg (*)] 500 mg PO DAILY 12/03/16 [Last Taken ] Citalopram [CeleXA 20 MG] 20 mg PO HS 12/03/16 [Last Taken 06/09/17] lamoTRIgine [LamICTAL 100 MG (*)] 100 mg PO HS 12/03/16 [Last Taken 06/09/17] Multivitamins [Multivitamin (*)] 1 each PO DAILY 02/03/17 [Last Taken 06/09/17] ALPRAZolam [Xanax 0.5 MG (*)] 0.5 mg PO DAILY PRN 06/10/17 [Last Taken 2 Days Ago ~06/08/17] LORazepam [Ativan (*)] 1 - 2 mg PO Q6HRS PRN 06/10/17 [Last Taken Unknown] Potassium Cl [Klor-Con 20 meq (*)] 20 meq PO BID 06/10/17 [Last Taken 06/10/17 09:00] Promethazine HCl [Phenergan 25mg (*)] 12.5 mg PO Q4HRS 06/10/17 [Last Taken 09:00] Dicyclomine [Bentyl 10 MG (*)] 10 mg PO QID PRN #30 cap 06/12/17 [Last Taken Unknown] Famotidine [Pepcid 20 MG (*)] 20 mg PO BID tab 06/12/17 [Last Taken Unknown] Additional Medication Instructions: Increase tube feed free water to 80cc q4 hours Discharge Medications: Refer to the Discharge Home Medication list for PRN reason. - Orders Services needed: Home Group Home Care Face to Face: I certify that this patient was under my care and that I had the required [id number] encounter meeting the encounter requirements on the discharge day. My findings support the fact that the patient is homebound as defined in Home Care Face to Face Continued: CMS Chapter 7 Medicare Benefits Manual 30.1.1 , The condition of the patient is such that there exists a normal inability to leave home and consequently, leaving home would require a considerable and taxing effort. Isolation Type: None Diet Recommendation: no restrictions on diet Diet Texture: Regular Texture Diet Tube feeding: elie claudio tube feeds at 80cc/hr. increase free water to 80cc q4 Weigh Patient: weekly Activity/Weight Bearing Restrictions: none - Labs/Radiology BMP Date: 06/13/17 (obtain biweekly () - please send to [facility] [phone] fax) - Follow Up Care Current Providers and Referrals: Umu Hill DO [Primary Care Provider] - Richy Yao MD [Medical Doctor] -
[2017-06-12] MEDS: D5W 1/2 NS W/ 20 KCl/L 1,000 ML IV SCH (16:22)
--- NOTE | 2017-06-12 17:17 | ASMTCMCOM ---
CM Note CM Note Notes: Today Gloriar worked with the understanding the Pt. would likely be d/c'ed today. In the end, Pt. too woosy, lightheaded, and nauseous to d/c today. After a significant homecare search, Eyad was able to set up new homecare RN for Pt. through [facility]: . Family cannot staff an RN until Friday 06/16. Dr. Yao is OK with this. Eyad gave Andree the office number for [facility] . Gloriar provided [employer] d/c paperwork to [facility], [facility], and [facility]. In the end, Gloriar called all agencies to let them know Pt will not discharge today. Gloriar met w/ Pt. alone in the room for emotional support. Pt. seems to be at the end of her rope emotionally. Pt. states she wants a second opinion about what to do about her GI struggles. She states she will work to do that. Pt. wants to know if she has a chance at living a normal life again. Worried that she doesn't have a chance at a normal life, but wants to know the truth. States her limbo status about knowing about her hope for the future is causing her much distress. States she wants to be more direct with MD so that he understands how she is feeling right now and wants him to be direct with her if he knows - even if it is bad news. Eyad/NIKKY to follow. Date Signed: 06/12/2017 05:16 PM Electronically Signed By:Melyssa Silva LCSW
[2017-06-12] MEDS: CITALOPRAM 20 MG TAB PO SCH (21:22)
[2017-06-12] MEDS: lamoTRIgine 100 MG TAB PO SCH (21:22)
[2017-06-13] MEDS: KETOROLAC 15 MG/1 ML SDV IVP PRN ×4 (05:08→23:46)
[2017-06-13] MEDS: LORazepam 1 MG TAB PO PRN ×2 (05:08→09:41)
[2017-06-13] MEDS: PROMETHAZINE HCL 25 MG TAB PO SCH ×5 (05:08→23:47)
--- NOTE | 2017-06-13 08:56 | SOAPPROG ---
SOAP Progress Note Assessment/Plan: Assessment/Plan: no new issues. recurrent emesis yesterday 15x per pt. her ileostomy effluent is thinner with hydration. avss. exam unchanged. creat 1.3. extremely difficult case - current setback appears to be multifactorial - our goal is to get her back to her status 3 weeks ago where she was tolerating small po without ongoing emesis. working with CM to obtain new [facility] agency. i anticipate more hospital admissions over the next few months unfortunately. we discussed adding yogurt/probiotic medications in addition to her phenergan and xanax (she prefers this over ativan). left arm PICC clean. tubes all secure. setback multifactorial likely resultant from recent PICC sepsis, pneumonia, severe electrolyte disturbance ( intracellular k depletion), dehydration, anxiety/frustration. goal is for returning to home today/tomorrow with continued tube feed, IVF bolus (will plan for 3L daily until back to last month's baseline), and po when able. she will continue her increased phenergan dose frequency for now (she states that she was actually on 12.5 rather than 6.25). encouraging short term scheduled ativan at increased frequency to help with nausea / anxiety control. Andree and Will are on board with this action plan. 06/13/17 08:53 Objective: Vital Signs Temp Pulse Resp BP Pulse Ox 36.7 C 96 12 86/54 L 96 06/13/17 07:40 06/13/17 07:40 06/13/17 07:40 06/13/17 07:48 06/13/17 07:40 Laboratory Results 06/13/17 05:00 06/13/17 05:00 06/12/17 06/13/17 06/14/17 05:59 05:59 05:59 Intake Total 1600 550 Output Total 2150 Balance -550 550 ICD10 Worksheet Patient Problems: Problems Problem Status Onset Abdominal abscess Acute Dehydration Acute Hypochloremia Acute Near syncope Acute Shortness of breath Acute
[2017-06-13] MEDS: FAMOTIDINE 20 MG TAB PO SCH ×2 (09:39→21:36)
[2017-06-13] MEDS: ASCORBIC ACID 500 MG TAB PO SCH (09:39)
[2017-06-13] MEDS: MULTIVITAMINS 1 EACH TAB PO SCH (10:14)
[2017-06-13] MEDS: POTASSIUM CL 20 MEQ TAB PO SCH (10:14)
[2017-06-13] MEDS ORDERED: ALPRAZolam 1 MG TAB PO PRN (10:37)
[2017-06-13] MEDS: POTASSIUM CL 20 MEQ/15 ML UDCUP PO SCH ×2 (11:20→21:37)
[2017-06-13] MEDS: GABAPENTIN 250 MG/5 ML 30 ML BOTTLE PO SCH ×3 (11:20→22:22)
--- NOTE | 2017-06-13 15:24 | ASMTCMCOM ---
CM Note CM Note Notes: Today Eyad and went in together to see Pt. in her room. Nimco Solis present, but sleeping for most of the meeting. MD and Pt. spoke about her course, present situation, and frankly unknown future outcomes. MD and Pt. decided she would try some different medications and doses today to help with nausea and pain. MD, Pt, and Eyad discussed Pt. trying [place] medicine/alternative therapies/acupuncture on an outpatient basis to help with her symptoms. Pt. interested in trying. Discussed interconnectedness of the GI system with anxiety and that acupuncture can help with that and also with pain. With Pt's permission, Eyad left message for Pt's psychiatrist Dr. Adelina Benitez to see if she works with any [place] medical practitioners. Pt. sees Dr. Andino every two weeks here in [place] when Pt. is not hospitalized. Eyad has not heard back from Dr. Andino as of the writing of this note. Eyad provided two referrals to Pt. 1) [facility] [place] [facility] in [email or web address] and 2) [facility] in [place] [email or web address] Pt. brightened up significantly after conversation. Plan for d/c tomorrow, Friday. Plan: D/c with [facility] RN who will visit on Friday 06/16 , [facility] for IV fluids (Pt. already has some), and [facility] for enteral [employer] feeds (Pt. already has some). Please get (Dr. Yao) to do new [facility] D/c order on day of d/c. Date Signed: 06/13/2017 03:23 PM Electronically Signed By:Melyssa Silva LCSW
[2017-06-13 15:41] VITALS: O2SAT 97
[2017-06-13] MEDS ORDERED: GABAPENTIN 250 MG/5 ML 30 ML BOTTLE PO SCH (16:00)
--- NOTE | 2017-06-13 16:26 | ASMTLACE ---
LACE Length of stay for Answers: 4-6 days current admission Acuity / Level of Answers: Yes Care: Did the patient have an inpatient admission? Comorbidities - select Answers: Other Notes: Severe GI problems all that apply # of Emergency department Answers: 3-4 visits in the last 6 months Social determinants Answers: Mental health diagnosis (anxiety, depression, pers onality disorders, etc.) Score: 14 Date Signed: 06/13/2017 04:26 PM Electronically Signed By:Melyssa Silva LCSW
--- NOTE | 2017-06-13 17:23 | SOAPPROG ---
SOAP Progress Note Assessment/Plan: Assessment: patient unable to be discharged yesterday secondary to lightheadedness and dizziness. after retching, she has ongoing pain. afebrile. exam unchanged. NIKKY myrick, and I met today. we reviewed her care plan in great detail again. we discussed our current goals of trying to maintain hydration, lytes, nausea control. we discussed the potential pitfalls of each of her general concerns as they related to meds, future intervention strategies, life goals... it was suggested that alternative means such as acupuncture may be of some benefit? will keep in house today until able to maintain herself independently. may also consider somatostatin or sumatriptan as alternative options today for emesis/secretion control. extensive questions were answered. she verbalized satisfaction with our plans moving forward. she was again reminded to keep written notes of her questions and concerns. no new issues. recurrent emesis today am. her ileostomy effluent is thinner with hydration. avss. exam unchanged. creat 1.3. extremely difficult case - current setback appears to be multifactorial - our goal is to get her back to her status 3 weeks ago where she was tolerating small po without ongoing emesis. working with NIKKY to obtain new [facility] agency. i anticipate more hospital admissions over the next few months unfortunately. we discussed adding yogurt/ probiotic medications in addition to her phenergan and xanax (she prefers this over ativan). will give additional fluid challenge. we discussed her frequent after hours and weekend phone calls - requested that she and flint call with concerns prior to the weekend or end of day. she states that she is comfortable with this plan. will plan to see back in one week. will refill phenergan and xanax. i feel that she is safe for discharge today with additional IV hydration. care plan reviewed with family and nursing staff. feeling better overall. still lightheaded with activity. k4.1. emesis 1200 today. no other new issues. avss. comfortable. face full with normal skin turgor/color. pupils not sunken. heart reg. lungs clear. abd soft. left arm PICC clean. tubes all secure. setback multifactorial likely resultant from recent PICC sepsis, pneumonia, severe electrolyte disturbance (intracellular k depletion), dehydration, anxiety/frustration. our goal is for returning to home tomorrow with continued tube feed, IVF bolus (will plan for 3L daily until back to last month's baseline), and po when able. she will continue her increased phenergan dose frequency for now (she states that she was actually on 12.5 rather than 6.25). encouraging short term scheduled ativan at increased frequency to help with nausea / anxiety control. will work with CM to help we re-establishing home care. will need regular labs which have not been sent to our office for review. Andree and Will are on board with this action plan. Plan: 06/11/17 17:13 06/12/17 13:06 06/12/17 13:22 06/13/17 16:58 06/13/17 16:59 Objective: Vital Signs Temp Pulse Resp BP Pulse Ox 36.9 C 106 H 16 97/68 L 97 06/13/17 15:39 06/13/17 15:39 06/13/17 15:39 06/13/17 15:39 06/13/17 15:39 Laboratory Results 06/13/17 05:00 06/13/17 05:00 06/12/17 06/13/17 06/14/17 05:59 05:59 05:59 Intake Total 1600 550 550 Output Total 2150 Balance -550 550 550 ICD10 Worksheet Patient Problems: Problems Problem Status Onset Abdominal abscess Acute Dehydration Acute Hypochloremia Acute Near syncope Acute Shortness of breath Acute
[2017-06-13] MEDS ORDERED: SUMAtriptan 6 MG/0.5 ML VIAL SC ONE (17:25)
[2017-06-13] MEDS ORDERED: NS 1,000 ML IV ONE ×2 (17:26→22:30)
[2017-06-13] MEDS: DICYCLOMINE 10 MG CAP PO PRN (17:55)
[2017-06-13] MEDS: D5W 1/2 NS W/ 20 KCl/L 1,000 ML IV SCH (18:53)
[2017-06-13] MEDS: CITALOPRAM 20 MG TAB PO SCH (21:36)
[2017-06-13] MEDS: lamoTRIgine 100 MG TAB PO SCH (21:36)
[2017-06-13] MEDS: ALPRAZolam 1 MG TAB PO SCH (21:37)
[2017-06-13] MEDS: OCTREOTIDE 100 MCG/1 ML INJ SC SCH (22:22)
[2017-06-14] MEDS: D5W 1/2 NS W/ 20 KCl/L 1,000 ML IV SCH ×2 (01:42→09:25)
[2017-06-14] MEDS: PROMETHAZINE HCL 25 MG TAB PO SCH ×2 (06:06→11:48)
[2017-06-14] MEDS: KETOROLAC 15 MG/1 ML SDV IVP PRN ×2 (06:06→11:54)
[2017-06-14 08:34] VITALS: BP 118/76; PULSE 94; RESP 12; TEMP 97.9
[2017-06-14] MEDS: POTASSIUM CL 20 MEQ/15 ML UDCUP PO SCH (08:54)
[2017-06-14] MEDS: ALPRAZolam 1 MG TAB PO SCH (08:54)
[2017-06-14] MEDS: FAMOTIDINE 20 MG TAB PO SCH (08:54)
[2017-06-14] MEDS: ASCORBIC ACID 500 MG TAB PO SCH (08:55)
[2017-06-14] MEDS ORDERED: MULTIVIT/MINERAL/FERR GLUC 15 ML UDL TUBE SCH (09:00)
[2017-06-14] MEDS: GABAPENTIN 250 MG/5 ML 30 ML BOTTLE PO SCH (09:04)
[2017-06-14] MEDS: OCTREOTIDE 100 MCG/1 ML INJ SC SCH (09:17)
--- NOTE | 2017-06-14 11:09 | SOAPPROG ---
SOAP Progress Note Assessment/Plan: Assessment: continued emesis overnight. less lightheadedness. tolerating TF at 80cc/hr. some improvement in abd pain with imitrex (?abd migraine thought). no change with sandostatin in emesis volume. AVSS. patient lying in bed with fiance - smiling - good spirits. comfortable. abd nontender. tubes/lines secure. PICC site clean. patient comfortable with discharge today. 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 one last area to be worked up may be future CTA to exclude MALS (area of celiac artery narrowing noted on review of her [facility] imaging)? in interim time, will add neurontin , dc sandostatin and imitrex (discussed serotonin release potential). she has been in contact with her psychiatrist who is contemplating stopping celexa. will also pursue MMJ/possible edible options in addition to acupuncture. [facility] coordinated by NIKKY. will see back in one week in office. patient and flint are excited to be discharged today and are all in good spirits. patient unable to be discharged yesterday secondary to lightheadedness and dizziness. after retching, she has ongoing pain. afebrile. exam unchanged. NIKKY myrick, and I met today. we reviewed her care plan in great detail again. we discussed our current goals of trying to maintain hydration, lytes, nausea control. we discussed the potential pitfalls of each of her general concerns as they related to meds, future intervention strategies, life goals... it was suggested that alternative means such as acupuncture may be of some benefit? will keep in house today until able to maintain herself independently. may also consider somatostatin or sumatriptan as alternative options today for emesis/secretion control. extensive questions were answered. she verbalized satisfaction with our plans moving forward. she was again reminded to keep written notes of her questions and concerns. no new issues. recurrent emesis today am. her ileostomy effluent is thinner with hydration. avss. exam unchanged. creat 1.3. extremely difficult case - current setback appears to be multifactorial - our goal is to get her back to her status 3 weeks ago where she was tolerating small po without ongoing emesis. working with CM to obtain new [facility] agency. i anticipate more hospital admissions over the next few months unfortunately. we discussed adding yogurt/ probiotic medications in addition to her phenergan and xanax (she prefers this over ativan). will give additional fluid challenge. we discussed her frequent after hours and weekend phone calls - requested that she and ezequiel call with concerns prior to the weekend or end of day. she states that she is comfortable with this plan. will plan to see back in one week. will refill phenergan and xanax. i feel that she is safe for discharge today with additional IV hydration. care plan reviewed with family and nursing staff. feeling better overall. still lightheaded with activity. k4.1. emesis 1200 today. no other new issues. avss. comfortable. face full with normal skin turgor/color. pupils not sunken. heart reg. lungs clear. abd soft. left arm PICC clean. tubes all secure. setback multifactorial likely resultant from recent PICC sepsis, pneumonia, severe electrolyte disturbance (intracellular k depletion), dehydration, anxiety/frustration. our goal is for returning to home tomorrow with continued tube feed, IVF bolus (will plan for 3L daily until back to last month's baseline), and po when able. she will continue her increased phenergan dose frequency for now (she states that she was actually on 12.5 rather than 6.25). encouraging short term scheduled ativan at increased frequency to help with nausea / anxiety control. will work with CM to help we re-establishing home care. will need regular labs which have not been sent to our office for review. [facility] are on board with this action plan. Plan: 06/11/17 17:13 06/12/17 13:06 06/12/17 13:22 06/13/17 16:58 06/13/17 16:59 06/14/17 11:01 Objective: Vital Signs Temp Pulse Resp BP Pulse Ox 36.6 C 94 12 118/76 97 06/14/17 08:00 06/14/17 08:00 06/14/17 08:00 06/14/17 08:00 06/14/17 08:00 Laboratory Results 06/13/17 05:00 06/14/17 03:10 06/13/17 06/14/17 06/15/17 05:59 05:59 05:59 Intake Total 550 6917 749 Output Total 4509 Balance 550 5444 749 ICD10 Worksheet Patient Problems: Problems Problem Status Onset Abdominal abscess Acute Dehydration Acute Hypochloremia Acute Near syncope Acute Shortness of breath Acute
--- NOTE | 2017-06-14 11:18 | PDIAF ---
- Diagnosis Code Status: Full Code - Medication Management Discharge Medications: Medications to Continue on Transfer Ascorbic Acid [Vitamin C 500 mg (*)] 500 mg PO DAILY 12/03/16 [Last Taken ] Citalopram [CeleXA 20 MG] 20 mg PO HS 12/03/16 [Last Taken 06/09/17] lamoTRIgine [LamICTAL 100 MG (*)] 100 mg PO HS 12/03/16 [Last Taken 06/09/17] Multivitamins [Multivitamin (*)] 1 each PO DAILY 02/03/17 [Last Taken 06/09/17] ALPRAZolam [Xanax 0.5 MG (*)] 0.5 mg PO TID PRN 06/10/17 [Last Taken 2 Days Ago ~06/08/17] LORazepam [Ativan (*)] 1 - 2 mg PO Q6HRS PRN 06/10/17 [Last Taken Unknown] Potassium Cl [Klor-Con 20 meq (*)] 20 meq PO BID 06/10/17 [Last Taken 06/10/17 09:00] Promethazine HCl [Phenergan 25mg (*)] 12.5 mg PO Q4HRS 06/10/17 [Last Taken 09:00] Dicyclomine [Bentyl 10 MG (*)] 10 mg PO QID PRN #30 cap 06/12/17 [Last Taken Unknown] Famotidine [Pepcid 20 MG (*)] 20 mg PO BID tab 06/12/17 [Last Taken Unknown] ALPRAZolam [Xanax 1 MG (*)] 0.5 mg PO TID #90 tab 06/14/17 [Last Taken Unknown] Gabapentin [Neurontin 300 MG (*)] 300 mg PO TID #90 cap 06/14/17 [Last Taken Unknown] Multivit/Mineral/Ferr Gluc [Cerovite Liquid (*)] 15 ml TUBE DAILY udl 06/14/17 [Last Taken Unknown] Additional Medication Instructions: Increase tube feed free water to 80cc q4 hours Discharge Medications: Refer to the Discharge Home Medication list for PRN reason. - Orders Services needed: Registered Nurse (clarify - patient needs home RN for labs, invasive line assessment, IV fluid/hydration assessment, tube feed tolerance.... ) Isolation Type: None Diet Recommendation: no restrictions on diet Diet Texture: Regular Texture Diet Tube feeding: Social Plus tube feeds at 80cc/hr. increase free water to 80cc q4 Weigh Patient: weekly Wound Care Instructions: routine PICC mgmnt Activity/Weight Bearing Restrictions: none Additional: patient to receive 3L NaCl IV daily - Labs/Radiology BMP Date: 06/16/17 (obtain biweekly (/) - ) Call or Fax Lab and Imaging Results to: please send to [facility] [phone] fax - Follow Up Care Current Providers and Referrals: Umu Hill DO [Primary Care Provider] - Richy Yao MD [Medical Doctor] -
--- NOTE | 2017-06-14 11:54 | GDS ---
[f rep st] DISCHARGE SUMMARY REASON FOR ADMISSION: Nausea, vomiting, dehydration, hypokalemia, failure to thrive. HISTORY OF PRESENT ILLNESS: 21-year-old female with a significant history for intestinal pseudo obstructive disorder. She has been hospitalized extensively for complications related to her dysmotility, abdominal surgical infections, previous gastroparesis, ongoing challenges related to nausea, vomiting, emesis, hypokalemia, as well as multiple recent admissions related to recurrent abdominal infections, pneumonia, line sepsis, depression as well as others. She was admitted with the above diagnoses. She was treated with fluid and electrolyte resuscitation. Her nonfunctioning left upper extremity PICC line was replaced. She was seen and consulted extensively by the surgical service, as well as case management service. She was able to be discharged on the in improved condition. She was still having episodes of repeated emesis despite ongoing efforts at medical management. This has been a historical complicating feature of her illness since her teenage years. She is planning to be discharged home with increased tube feeds of 80 cc/hour with increased water flushes of 80 cc/4 hours. She has will have her intravenous fluids upped to 3 L daily. Home care will be re-established with twice weekly labs to be checked. Her Phenergan was increased from twice a day to 4 times a day, along with scheduled Xanax. She will continue working with her therapist in the outpatient settings with possible plans to discontinue her Celexa. She will make effort in the outpatient setting to pursue additional complimentary management with possible acupuncture. Arrangements will be looked into regarding consideration for possible outpatient medical marijuana to help curb her persistent nausea and emesis symptoms. Her high-volume emesis still continues to be a challenge. We did discuss potential alternative etiologies for some of her GI complaints to include a possible median arcuate ligament syndrome, which may be entertained in the outpatient setting. She is aware that the symptom control improvements will be measured over the next few weeks and months, not on a daily basis. Extensive time was spent with she and her fiance, Will, regarding the appropriate timing of phone calls and concerns to the office. She and Will were in good spirits upon discharge, and excited to return to home. Their future medical uncertainties were discussed on multiple visits throughout her hospitalization. /[id number]/MODL MTDD
--- NOTE | 2017-06-14 14:21 | ASDISCHSUM ---
Discharge Information Plan Status:IV ABX/Infusion Medically Cleared to Leave: Discharge Date:06/14/2017 01:25 PM D/C Disposition:Home Health Service ADT D/C Disposition:Home, Routine, Self-Care Projected Discharge Date:06/14/2017 11:00 AM Transportation at D/C:Family Discharge Delay Reason: Follow-Up Date:06/14/2017 11:00 AM Discharge Slot: Final Diagnosis: Placement Information Referral Type:*Home Health Care Services Referral ID:[id number] Provider Name:[facility] Address 1:[address] Address 2: City:[place] Selection Factors: State:[place] Referral Type:Home Infusion Referral ID:[id number] Provider Name:[facility] Address 1:[address] Address 2: City:[place] Selection Factors: State:[place] Referral Type:Home Infusion Referral ID:[id number] Provider Name:[facility] - Address 1:[address] Phone Number: Address 2: Fax Number: City:[place] Selection Factors: State:[place] Patient Contact Information Contact Name:AGUILAR Relationship:Other Address: Work Phone: City: [facility] Phone: [facility] Code: Email: Financial Information Financial Class:HMO and PPO Plans Primary Plan Desc: OUT OF STATE PPO Primary Plan Number:[id number] Secondary Plan Desc:[place] Secondary Plan Number:[id number] Assessment Information BC CM Progress Note CM Note CM Note Notes: Pt. is a 21-year-old woman admitted with nausea, vomiting, dehydration, and hypokalemia. Pt. with multiple [facility] admissions and complicated medical history. 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 Hx. Depression and FTT. Pt. last d/c'ed from [facility] on 04/18/17. Per H&P, Pt. was admitted to the [facility] in [place] [place] and to the ED in [place] "three times" prior to this new admission. Per H&P, Pt's homecare services stopped after her admission to [facility] in [place] [facility] [facility] [place]. In the past, Pt. received home services from [facility], [facility] enteral feeds, and [facility] for IV fluids. Note: Pt. has been living at her boyfriend's family's home in [place]: [address] [place] [address] [place] [address]. Pt. asked to see Eyad today, but when Eyad tried, Pt. was in with MD. Plan to see her tomorrow. Eyad also left message for Claudia Milner RN, APPLICATION P[employer]AGER who has worked with Pt. extensively and let her know Pt. was admitted again. MICAELA/NIKKY to follow for d/c POC. Date Signed: 06/11/2017 04:54 PM Electronically Signed By:Melyssa Silva LCSW [facility] CM Progress Note CM Note CM Note Notes: Today Eyad worked with the understanding the Pt. would likely be d/c'ed today. In the end, Pt. too woosy, lightheaded, and nauseous to d/c today. After a significant homecare search, Eyad was able to set up new homecare RN for Pt. through [facility] - [place]iana de guzman: . [facility] cannot staff an RN until Friday 06/16. Dr. Yao is OK with this. Eyad gave Andree the office number for [facility] . Eyad provided [employer] d/c paperwork to [facility], [facility], and [employer]. In the end, Eyad called all agencies to let them know Pt will not discharge today. Eyad met w/ Pt. alone in the room for emotional support. Pt. seems to be at the end of her rope emotionally. Pt. states she wants a second opinion about what to do about her GI struggles. She states she will work to do that. Pt. wants to know if she has a chance at living a normal life again. Worried that she doesn't have a chance at a normal life, but wants to know the truth. States her limbo status about knowing about her hope for the future is causing her much distress. States she wants to be more direct with MD so that he understands how she is feeling right now and wants him to be direct with her if he knows - even if it is bad news. Eyad/NIKKY to follow. Date Signed: 06/12/2017 05:16 PM Electronically Signed By:Melyssa Silva LCSW [facility] CM Progress Note CM Note CM Note Notes: Today Eyad and went in together to see Pt. in her room. [place] Angeloint present, but sleeping for most of the meeting. MD and Pt. spoke about her course, present situation, and frankly unknown future outcomes. MD and Pt. decided she would try some different medications and doses today to help with nausea and pain. MD, Pt, and Eyad discussed Pt. trying [place] medicine/alternative therapies/acupuncture on an outpatient basis to help with her symptoms. Pt. interested in trying. Discussed interconnectedness of the GI system with anxiety and that acupuncture can help with that and also with pain. With Pt's permission, Eyad left message for Pt's psychiatrist Dr. Adelina Benitez to see if she works with any [place] medical practitioners. Pt. sees Dr. Andino every two weeks here in [place] when Pt. is not hospitalized. Eyad has not heard back from Dr. Andino as of the writing of this note. Eyad provided two referrals to Pt. 1) [facility] in [facility] [place] [email or web address] and 2) [facility] in [place] [email or web address] Pt. brightened up significantly after conversation. Plan for d/c tomorrow, Friday. Plan: D/c with [facility] RN who will visit on Friday 06/16 , [facility] for IV fluids (Pt. already has some), and [facility] for enteral [employer] feeds (Pt. already has some). Please get MD (Dr. Yao) to do new [facility] D/c order on day of d/c. Date Signed: 06/13/2017 03:23 PM Electronically Signed By:Melyssa Silva LCSW [facility] Length of stay for Answers: 4-6 days current admission Acuity / Level of Answers: Yes Care: Did the patient have an inpatient admission? Comorbidities - select Answers: Other Notes: Severe GI problems all that apply # of Emergency department Answers: 3-4 visits in the last 6 months Social determinants Answers: Mental health diagnosis (anxiety, depression, pers onality disorders, etc.) Score: 14 Date Signed: 06/13/2017 04:26 PM Electronically Signed By:Melyssa Silva LCSW Case Management Discharge Plan Note Case Management Discharge Discharge Order Complete? Answers: Yes Patient to Obtain Answers: Other Notes: [facility], [facility] Transportation Arranged Answers: Family/Friends Faxed Final Orders Answers: Yes Agency/Facility Transfer Answers: Yes Report Printed & Faxed to Receiving Agency Discharge Comments Notes: Pt will dc home today to boyfriend's family's house in [facility]. She will be followed by Family [facility]; notified oc RN, Maureen, w/ and they will plan to see her Friday. Pt is aware that first visit will be friday. Met w/pt to discuss. She is also current w/[facility] for IVF and [facility] for tube feeds. She stated that she has supplies for both at home and feels good about starting this back up as she is very familiar with all of this. Notified Sachi with [facility] and [facility]oretta severino/[facility] and sent orders/info through [employer] to [facility], and [facility]. Discussed dc plan with Dr Yao and RN, Mary. Pt seems content w/dc plan. Date Signed: 06/14/2017 01:58 PM Electronically Signed By:Shazia Randall RN Intervention Information
== END 2017-06-14 13:25 | disposition home health service (06) | DRG 392 ==
LOC: F3E 14:11 → OBSVTOIN 14:11
PROVIDERS: ADMIT Surgery; ATTEND Surgery
PROC: 02HV33Z Insertion of Infusion Device into Superior Vena Cava, Percutaneous Approach (ICD-10-PCS; principal; 2017-06-10)
DX: R11.2 Nausea with vomiting, unspecified (principal); E87.1 Hypo-osmolality and hyponatremia; E86.0 Dehydration; E87.8 Other disorders of electrolyte and fluid balance, not elsewhere classified; R62.7 Adult failure to thrive; K31.84 Gastroparesis; K59.8 Other specified functional intestinal disorders; F32.9 Major depressive disorder, single episode, unspecified; Z79.2 Long term (current) use of antibiotics; Z93.2 Ileostomy status; Z93.1 Gastrostomy status; Z93.4 Other artificial openings of gastrointestinal tract status; Z90.49 Acquired absence of other specified parts of digestive tract; Z87.01 Personal history of pneumonia (recurrent)
CPT/HCPCS: C1751; J1885; J2354; J3030; J3475; J3480

== ENCOUNTER 2017-07-01 13:22 | Emergency (ER) | payer BC, MEDICAID ==
[2017-07-01] MEDS ORDERED: NS 1,000 ML IV ONE (13:58)
[2017-07-01] MEDS ORDERED: PROMETHAZINE HCL 25 MG/ML INJ ONE (15:33)
[2017-07-01] MEDS ORDERED: HYDROmorphONE/DILAUDID 2 MG/ML INJ ONE (15:33)
[2017-07-01] MEDS ORDERED: HYDROmorphONE/DILAUDID 1 MG/ML INJ IVP ONE ×2 (15:36→17:37)
[2017-07-01] MEDS ORDERED: PROMETHAZINE HCL 25 MG/ML INJ IVP ONE ×2 (15:36→15:41)
--- NOTE | 2017-07-01 15:51 | EDPHY ---
H & P Time Seen by Provider: 07/01/17 14:59 HPI/ROS: HPI Lower abdominal pain, ileostomy blockage. 21-year-old female by private vehicle with her mother. This patient has a complicated abdominal surgical history. She had a BCIR ileostomy procedure performed osvaldo Mueller in August of 2016. This requires a Donaldson catheter to be placed into the ileostomy site to drain. She reports that the secretions that she is usually able to drain without difficulty have become unusually thick. She reports that she has not been able to drain the ileostomy pouch with her standard Donaldson catheter technique secondary to the thickness of these secretions. She reports that secretions then buildup and the area of the ileostomy in her right lower quadrant, this area then swells and produces pain. She reports that it then drained spontaneously. She describes the discharge as a brownish liquid diarrheal like stool She comes the emergency department looking for help with draining this ileostomy pouch. Please see below for further details on past surgical history. She denies fever. She has had some vomiting but this is a chronic problem. She had a CT scan earlier today that was ordered by Dr. Yao. Dr. Yao did not perform the ileostomy procedure as outlined above but has been involved with her care for some time. ROS: Constitutional: No fever, no chills. No weakness. Eyes: No discharge. No changes in vision. ENT: No sore throat. No nasal congestion or rhinorrhea. Respiratory: No cough. No shortness of breath. Cardiac: No chest pain, no palpitations. Gastrointestinal: As above. Genitourinary: No hematuria. No dysuria or increased frequency with urination. Musculoskeletal: No back pain. No neck pain. No myalgias or arthralgias. Skin: No rashes. Neurological: No headache. No focal weakness or altered sensation. Past medical history: GERD, ovarian intestinal pseudo-obstruction. Multiple exploratory laparotomies, anastomoses, anastomotic leaks, with 3 exploration for infection, most recently with a total abdominal colectomy with constant ileostomy, gastrojejunostomy, peg tube placement, feeding J-tube placement. Social history: No alcohol. No tobacco. 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 Here with her mother. She is engaged. Physical Exam: General Appearance: Alert, thin, appears uncomfortable but not in distress. This patient is responding to questions appropriately and in full sentences. This patient appears well-hydrated and well-nourished. Eyes: Pupils equal and round no pallor or injection. No lid edema, erythema or injection. Respiratory: There are no retractions, lungs are clear to auscultation with good air movement bilaterally. Cardiovascular: Regular rate and rhythm. Tachycardia. No murmur. Gastrointestinal: Abdomen is soft, ileostomy site and right lower quadrant has diffuse erythema but no warmth. She has tenderness on palpation around the site of the ileostomy. Erythema looks more like irritation secondary to skin exposure to intestinal discharge verses a cellulitis, no fluctuance, no purulence expressed from the ileostomy site bedside ultrasound revealed no significant fluid pocket to this area, intermittent brownish orozco discharge from the open ileostomy, peg tube left upper quadrant, insertion site is clean dry and intact, no masses appreciated on palpation, bowel sounds present. No Zambrano sign. Neurological: Motor sensory function is grossly intact. Cranial nerves are normal. Gait is normal. Skin: Warm and dry, no rashes. Musculoskeletal: Neck is supple and nontender. Extremities are symmetrical. All joints range without pain or impingement. Psychiatric: No agitation. No depression. Database: EKG: Imaging: Procedures: Emergency department course: Vital signs reviewed. Afebrile. Tachycardic. Vital signs otherwise unremarkable. Bedside ultrasound is noted under physical exam no appreciable fluid pocket on scanning of her right lower quadrant. Abdominal CT with contrast performed earlier today reviewed. 4:30 p.m., discussed case with her general surgeon Dr. Richy Yao. He has reviewed her CT scan that was done today. He is aware of her current problem in the emergency department. He feels strongly that she does not need to be admitted. He request that we place a 16 or 18 gauge Donaldson catheter into the ileostomy pouch flush and drain it, leave it in place and sent her home. She is scheduled to see him in the office tomorrow. This was discussed with the patient and her mother. Donaldson catheter placement with irrigation performed by nursing staff without complication. 5:10 p.m., call back to room. Patient is now complaining of worsening right lower quadrant pain. Nothing emergently surgical identified on CT scan today as well as ultrasound as noted above. She and her mother now requesting admission. They do not feel comfortable going home. Dr. Yao paged again. 5:15 p.m., spoke with Dr. Yao. He requested that we irrigate the ileostomy pouch with 50 cc of Gastrografin. This will be done. He will finish up in the OR and come and see this patient in the emergency department in about an hour. This plan was discussed with the patient and her mother. 7:05 p.m., Dr. Richy Yao is currently at the bedside. 8:30 p.m., Dr. Yao has seen and evaluated the patient. The patient will be discharged to home. He will see her in the office tomorrow on follow-up. The patient was discharged in good condition with her mother. Differential Diagnosis: The differential diagnosis on this patient includes but is not limited to ileostomy drainage problem. Bowel obstruction, abscess/infection unlikely. This represents a partial list of diagnoses considered. These considerations are based on history, physical exam, past history, reassessment and diagnostic testing. Smoking Status: Never smoked Constitutional: Initial Vital Signs Temperature (C) 36.9 C 07/01/17 13:33 Heart Rate 135 H 07/01/17 13:33 Respiratory Rate 22 H 07/01/17 13:33 Blood Pressure 94/87 H 07/01/17 13:33 O2 Sat (%) 99 07/01/17 13:33 O2 Delivery Mode Room Air Allergies/Adverse Reactions: milk Allergy (Verified 07/01/17 13:32) mustard Allergy (Verified 07/01/17 13:32) Home Medications: Medication Instructions Recorded Ascorbic Acid [Vitamin C 500 mg 500 mg PO DAILY 12/03/16 (*)] Citalopram [CeleXA 20 MG] 20 mg PO HS 12/03/16 lamoTRIgine [LamICTAL 100 MG (*)] 100 mg PO HS 12/03/16 ALPRAZolam [Xanax 0.5 MG (*)] 0.5 mg PO TID PRN 06/10/17 Potassium Cl [Klor-Con 20 meq (*)] 20 meq PO BID 06/10/17 Promethazine HCl [Phenergan 25mg 12.5 mg PO Q4HRS 06/10/17 (*)] Dicyclomine [Bentyl 10 MG (*)] 10 mg PO QID PRN #30 cap 06/12/17 Famotidine [Pepcid 20 MG (*)] 20 mg PO BID tab 06/12/17 ALPRAZolam [Xanax 1 MG (*)] 0.5 mg PO TID #90 tab 06/14/17 Gabapentin [Neurontin 300 MG (*)] 300 mg PO TID #90 cap 06/14/17 Multivit/Mineral/Ferr Gluc 15 ml TUBE DAILY udl 06/14/17 [Cerovite Liquid (*)] Medical Decision Making - Data Points Medications Given: Discontinued Medications Hydromorphone HCl (Dilaudid) 0.5 mg IVP EDNOW ONE Stop: 07/01/17 15:37 Last Admin: 07/01/17 15:42 Dose: 0.5 mg Hydromorphone HCl (Dilaudid) 0.25 mg IVP EDNOW ONE Stop: 07/01/17 17:38 Last Admin: 07/01/17 17:39 Dose: 0.25 mg Sodium Chloride (Ns) 1,000 mls @ 0 mls/hr IV ONCE ONE PRN Reason: Wide Open Stop: 07/01/17 13:59 Last Admin: 07/01/17 14:20 Dose: 1,000 mls Promethazine HCl (Phenergan) 25 mg IVP EDNOW ONE Stop: 07/01/17 15:37 Last Admin: 07/01/17 15:47 Dose: Not Given Promethazine HCl (Phenergan) 6.25 mg IVP EDNOW ONE Stop: 07/01/17 15:42 Last Admin: 07/01/17 15:42 Dose: 6.25 mg Departure - Departure Disposition: Home, Routine, Self-Care Clinical Impression: Ileostomy dysfunction Condition: Good Instructions: Ileostomy Care (ED) Additional Instructions: Read and follow provided instructions. Follow-up with Dr. Richy Yao as scheduled tomorrow in his office for re- evaluation and further management. Continue Donaldson catheter drainage and irrigation procedure as previous. Return to the emergency department for worsening pain, fever, vomiting or other serious concerns. Referrals: Richy Yao MD [Medical Doctor] - As per Instructions
[2017-07-01 21:03] VITALS: BP 106/72
--- NOTE | 2017-07-02 00:34 | GCON ---
[f rep st] CONSULTATION REASON FOR EVALUATION: 1. Abdominal pain. 2. Ileostomy dysfunction. HISTORY OF PRESENTING ILLNESS: 21-year-old female, well known to me, who has been following up on a weekly basis in our office with ongoing surgical concerns related to her intestinal dysmotility and multiple prior operations. Please refer to her extensive prior hospital notes for further historical details. Most recently, she has been suffering from ongoing issues of nausea, vomiting, electrolyte disturbances, and intermittent dehydration. She gives herself 3 L fluid challenges daily in addition to her continuous J-tube feeds. She had been suffering from diarrhea over the last number of days. She did start Imodium intermittently last weekend. She was planned to undergo CT imaging for further assessment regarding a possible median arcuate ligament syndrome today at [facility]. She had these studies performed as planned. She continued to have severe worsening pain after her studies with inability to cannulate her continent ileostomy and provide adequate drainage. She presented to our office emergently, where physicians were unavailable. She opted to present to the emergency room for further assessment. PHYSICAL EXAM,: The patient was found to have a notable right lower quadrant tenderness and distention. A Donaldson catheter had been placed and attempted to be irrigated with warm water as well as Gastrografin. ED personnel and the patient were unable to attain adequate drainage using her stiff cannulation catheter and Donaldson catheters. I was able to cannulate her ileostomy and irrigated her thick particulate fluid, offering significant relief of her pain. Upon completion, there was a thin yellow Gastrografin type effluent without further particulate matter present. IMAGING STUDIES: Her CT images were directly reviewed with Radiology and with her family. 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 Her surgical gastrojejunostomy is noted to be patent with preferential drainage via this outlet tract. DISCUSSION: We did discuss the potential roles for surgical intervention to include a median arcuate ligament release. We discussed the potential uncertain benefit in her case, as well as potential significant comorbidities given her prior multiple surgical interventions. She has still not followed up with her new mock up assembler, which I strongly encourage prior to embarking on any further intervention, until her care team can be established. She will continue with regular psychiatric followups as well. After satisfactory drainage of her ileostomy, the patient felt comfortable returning to home at this time. She was accompanied by her mother throughout her visit. We spent approximately 90 minutes with ileostomy irrigation and drainage, as well as imaging review and discussion. /[id number]/MODL ALVA
== END 2017-07-01 21:01 | disposition home or self-care (01) ==
DX: K94.13 Enterostomy malfunction (principal)
CPT/HCPCS: 96374; J1170; J2550

== ENCOUNTER → 2017-07-01 | Outpatient (CLI) | payer BC, MEDICAID ==
[~2017-07-01] MED LIST: IOPAMIDOL (ISOVUE-370) 150 ML BTL IV ONE
== END ==
LOC: CIMAGING 10:28
PROVIDERS: ATTEND Surgery
DX: K59.9 Functional intestinal disorder, unspecified (principal); I77.4 Celiac artery compression syndrome; Z93.1 Gastrostomy status
CPT/HCPCS: 74177-PO; Q9967

== ENCOUNTER 2017-07-22 10:00 | Inpatient (IN) | payer BC, MEDICAID ==
--- NOTE | 2017-07-22 10:58 | PDHPUP ---
History & Physical Update H&P update statement: This history and physical update is based on an assessment of the patient which was completed after admission or registration (within 24 hours), but prior to the surgery/procedure. H&P update: H&P reviewed & patient examined, no change in patient's condition since H&P completed
[2017-07-22] MEDS ORDERED: BUPIVACAINE/EPI 0.5% 30 ML SDV ONE (12:53)
[2017-07-22] MEDS ORDERED: LIDOCAINE 1% 300 MG/30 ML SDV ONE (12:53)
[2017-07-22] MEDS ORDERED: HEPARIN 1000 UNIT/1 ML MDV ONE (12:54)
[2017-07-22] MEDS ORDERED: BUPIVACAINE 0.5% 30 ML SDV ONE (12:54)
[2017-07-22] MEDS ORDERED: LIDO/EPI 1% **for epidural** 30 ML SDV ONE (12:54)
[2017-07-22] MEDS ORDERED: LR 1,000 ML IV ONE (13:08)
[2017-07-22] MEDS ORDERED: ceFAZolin 2 GM/SWFI 2 GM/20 ML SYR IVP ONE (13:23)
--- NOTE | 2017-07-22 13:34 | PDANEPAE ---
ANE History of Present Illness Subtotal gastrectomy Chandler-en-Y ANE Past Medical History - Cardiovascular History Hx Hypertension: No Hx Arrhythmias: No Hx Chest Pain: No Hx Coronary Artery / Peripheral Vascular Disease: No Hx CHF / Valvular Disease: No Hx Palpitations: No - Pulmonary History Hx COPD: No Hx Asthma/Reactive Airway Disease: No Hx Recent Upper Respiratory Infection: No Hx Oxygen in Use at Home: No Hx Sleep Apnea: No - Neurologic History Hx Cerebrovascular Accident: No Hx Seizures: No Hx Dementia: No - Endocrine History Hx Diabetes: No Hypothyroid: No Hyperthyroid: No Obesity: no - Renal History Hx Renal Disorders: No - Liver History Hx Hepatic Disorders: No - Neurological & Psychiatric Hx Hx Neurological and Psychiatric Disorders: Yes Neurological / Psychiatric History Comment: depression, anxiety - Cancer History Hx Cancer: No - Congenital Disorder History Hx Congenital Disorders: Yes Congenital History Comment: congenital bowel obstruction - GI History GERD: mild Hx Gastrointestinal Disorders: Yes Gastrointestinal History Comment: congential bowel obstruction; gastoparisis; intestinal psudo-obstruction. reflux,gerd,abd pain. ileostomy - Other Health History Other Health History: NONE - Chronic Pain History Chronic Pain: Yes (general abd) - Surgical History Prior Surgeries: multiple ex laps for bowel obstruction; abcess drain placement ; colectomy; illiostomy; j tube and G tube placement; ANE Review of Systems Review of Systems: - Exercise capacity METS (RN): 4 METS ANE Patient History - Allergies Allergies/Adverse Reactions: milk Allergy (Verified 07/01/17 13:32) mustard Allergy (Verified 07/01/17 13:32) - Home Medications Home Medications: Ascorbic Acid [Vitamin C 500 mg (*)] 500 mg PO DAILY 12/03/16 [Last Taken ] lamoTRIgine [LamICTAL 100 MG (*)] 100 mg PO HS 12/03/16 [Last Taken 06/30/17] ALPRAZolam [Xanax 0.5 MG (*)] 0.5 mg PO TID PRN 06/10/17 [Last Taken 06/30/17] Potassium Cl [Klor-Con 20 meq (*)] 20 meq PO BID 06/10/17 [Last Taken 06/30/17] Promethazine HCl [Phenergan 25mg (*)] 25 mg PO Q4HRS 06/10/17 [Last Taken ] - Smoking Hx Smoking Status: Never smoked - Family Anes Hx Family Hx Anesthesia Complications: none ANE Labs/Vital Signs - Vital Signs Height: 170.18 cm Weight: 40.823 kg ANE Physical Exam - Airway Neck exam: FROM Mallampati Score: Class 1 Mouth exam: normal dental/mouth exam - Pulmonary Pulmonary: no respiratory distress, no rales or rhonchi - Cardiovascular Cardiovascular: regular rate and rhythym, no murmur, rub, or gallop - ASA Status ASA Status: II ANE Anesthesia Plan Anesthesia Plan: GA with mask, spinal
[2017-07-22] MEDS ORDERED: MIDAZOLAM 2 MG/2 ML VIAL IVP ONE (13:35)
[2017-07-22] MEDS: SCOPOLAMINE HYDROBROMIDE 1 MG/3 DAYS PATCH TD SCH (13:48)
[2017-07-22] MEDS ORDERED: fentaNYL 250 MCG/5 ML INJ ONE (14:00)
[2017-07-22] MEDS ORDERED: morphINE PF 5 MG/10 ML INJ ONE (14:00)
[2017-07-22] MEDS ORDERED: PROPOFOL/EMULSION 500 MG/50 ML BOTTLE IV ONE ×2 (14:00)
[2017-07-22] MEDS ORDERED: fentaNYL 100 MCG/2 ML INJ ONE ×4 (14:01→19:16)
[2017-07-22] MEDS ORDERED: MIDAZOLAM 2 MG/2 ML VIAL ONE (14:06)
[2017-07-22] MEDS ORDERED: KETAMINE 200 MG/20 ML VIAL ONE (15:04)
[2017-07-22] MEDS ORDERED: SUGAMMADEX SODIUM 200 MG/2 ML VIAL IVP ONE (15:54)
[2017-07-22] MEDS ORDERED: HYDROmorphONE/DILAUDID 2 MG/ML INJ ONE ×2 (17:37→19:16)
[2017-07-22] MEDS ORDERED: ROCURONIUM 50 MG/5 ML VIAL ONE (18:02)
[2017-07-22] MEDS ORDERED: PROPOFOL 200 MG/20 ML VIAL ONE (18:23)
[2017-07-22] MEDS ORDERED: POTASSIUM Cl (KCl) 100 ML IV ONE (18:45)
[2017-07-22] MEDS ORDERED: ONDANSETRON 4 MG/2 ML VIAL IVP PRN ×2 (18:53→19:35)
--- NOTE | 2017-07-22 18:53 | POSTOPPROG ---
Post Op Note Date of Operation: 07/22/17 Surgeon: Richy Yao Refuse Driver: Monroe Monaco Anesthesiologist: Deirdre Palacios Anesthesia: GET(General Endotracheal), Spinal Pre-op Diagnosis: MALS, gastroparesis, intestinal dysmotility Post-op Diagnosis: Same Procedure: Near total gastrectomy, MALS release Findings: Extensive celiac artery scarring Inf/Abcess present in the surg proc area at time of surgery?: No EBL: 100-500 Total fluids administered: 2200cc Complications: no immediate Specimen(s): stomach
[2017-07-22] MEDS ORDERED: PROMETHAZINE HCL 25 MG/ML INJ IVP PRN ×2 (19:00→19:35)
[2017-07-22] MEDS ORDERED: LORazepam 2 MG/ML INJ IVP PRN (19:01)
[2017-07-22] MEDS ORDERED: KETOROLAC 30 MG/1 ML SDV ONE (19:21)
[2017-07-22] MEDS: HYDROmorphONE/DILAUDID 2 MG/ML INJ IVP PRN ×6 (19:22→23:58)
[2017-07-22] MEDS: fentaNYL 100 MCG/2 ML INJ IVP PRN ×2 (19:22→19:35)
[2017-07-22] MEDS ORDERED: METOPROLOL TARTRATE 5 MG/5 ML INJ ONE (19:27)
[2017-07-22] MEDS ORDERED: POTASSIUM Cl (KCl) 20 MEQ in LR 1,000 ML IV SCH (19:30)
[2017-07-22] MEDS ORDERED: NALOXONE HCL 0.4 MG/ML INJ IVP PRN ×2 (19:35→20:08)
[2017-07-22] MEDS ORDERED: DIAZEPAM 5 MG/ML 1 ML SYR IVP PRN (19:35)
[2017-07-22] MEDS ORDERED: KETOROLAC 30 MG/1 ML SDV IVP ONE (19:36)
[2017-07-22] MEDS: POTASSIUM Cl (KCl) 20 MEQ in D5W LR 1,000 ML IV SCH (21:46)
[2017-07-22] MEDS: HYDROmorphONE/DILAUDID 6 MG/30 ML PCA IV PRN (21:46)
[2017-07-22] MEDS: FAMOTIDINE 20 MG TAB PO SCH ×2 (22:44→22:54)
[2017-07-22] MEDS: POTASSIUM Cl (KCl) 100 ML IV SCH ×2 (22:44→23:58)
[2017-07-22] MEDS: lamoTRIgine 100 MG TAB PO SCH ×2 (22:44→22:55)
--- NOTE | 2017-07-22 23:24 | GOP ---
[f rep st] OPERATIVE REPORT DATE OF OPERATION: 07/22/2017 SURGEON: Richy Yao MD ADVISORY APPLICATION DEVELOPER: Monroe Monaco MD. ANESTHESIA: General with spinal. ANESTHESIOLOGIST: Deirdre Palacios MD. PREOPERATIVE DIAGNOSIS: 1. Intestinal dysmotility. 2. Gastroparesis. 3. Median arcuate ligament syndrome. POSTOPERATIVE DIAGNOSIS: 1. Intestinal dysmotility. 2. Gastroparesis. 3. Median arcuate ligament syndrome. PROCEDURE PERFORMED: 1. Right internal jugular Groshong catheter placement with ultrasound and fluoroscopic guidance. 2. Near-total gastrectomy with Chandler-en-Y gastrojejunostomy. 3. Median arcuate ligament syndrome release. 4. Superior mesenteric artery syndrome release. 5. Takedown gastrocutaneous fistula. FINDINGS: Extensive fibrosis surrounding celiac artery. 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 She has previously undergone a total abdominal colectomy with continent ileostomy placement. She has continued to suffer from persistent nausea, vomiting, and inability to tolerate oral intake over the past year despite surgical gastric jejunostomy creation with venting gastrostomy tube and feeding jejunostomy tube. Symptoms have included multiple repeat hospitalizations, persistent dehydration despite daily IVF challenges, electrolyte disturbances, weight loss, and progressive recurrent SMA syndrome. She has been extensively worked up and has failed all maximal medical means. Given the options of consideration for a gastric pacemaker placement versus gastrectomy, and per discussion with her gastroenterology team and myself, she has opted to proceed with surgical resection at this time. Also significantly, she has been noted to have a median arcuate ligament syndrome during her most recent workups. Release is being entertained concurrently. Surgical risks and benefits were explained to the patient's family at length on multiple occasions , including, but not limited to, bleeding, infection, bowel injury, resection permanence, anastomotic leak, lifelong electrolyte and nutritional deficiencies , failure to resolve symptoms, as well as others. All questions were entertained. She desires to proceed. DESCRIPTION OF PROCEDURE: General anesthesia was induced after placement of spinal anesthetic. The right neck and chest were infiltrated with 1% lidocaine and 0.5% Marcaine. The jugular vein was directly punctured using ultrasound guidance. A guidewire passed smoothly into the atrium, which was confirmed using fluoroscopy. A counterincision was made on the chest wall. The Groshong catheter was tunneled cephalad. The vein was dilated under direct fluoroscopic visualization and the catheter passed toward the atrial junction without resistance. There was good blood return with catheter withdrawal as well as easy flushing with heparinized saline solution. Final fluoroscopy showed smooth contouring with the neck as well as satisfactory terminal positioning above the heart. Neck was reapproximated with a Monocryl suture followed by Dermabond, and the catheter secured to the chest with a nylon suture. Attention was directed to the abdominal cavity. The prior midline incision was reopened and extended toward the xiphoid. Abdominal wall adhesions were lysed. The previously placed venting gastrostomy tube was released. The gastrocutaneous fistula was taken down. The remaining portions of lesser and greater omentum were taken off the stomach and preserved for later visceral coverage. Using the ultrasonic dissector, the lesser and greater curvatures of the stomach were dissected to the upper portions of the fundus. There was a solitary large short gastric vessel intimately connected to the spleen that was used as a landmark for division. The pylorus was transected. The previously placed surgical gastrojejunostomy was taken down. The stomach was transected at the fundus, leaving a small remnant for reconstructive purposes. The stomach was removed from the field. The retroperitoneum was subsequently opened. The upper abdominal aorta was unroofed anteriorly at the level of the spring. The dissection was taken inferiorly down toward the celiac axis. The celiac axis dissection was notably challenging. There was extensive concrete adhesive bands fibrosed across the origin of the celiac access as suggested on her imaging studies. Using careful blunt and sharp dissection, adhesions were all completely lysed allowing for the celiac axis to be sprung into place. No visualized portions of stricturing were present upon completion release. The superior mesenteric artery was noted to be intact. This was not further disturbed at the level of the aorta. Attention was directed back toward the visceral contents. The Chandler limb was mapped out at the site of the prior gastrojejunostomy. This was chosen as the transection point beyond the ligament of Treitz. Ligament of Treitz was completely freed off the superior mesentery artery completely loosening it from the duodenum as were the remaining retroperitoneal attachments. A 30 cm Chandler limb was chosen. The prior surgical placed jejunostomy tube was maintained in place with the connection point for the jejunojejunostomy being just distal to the tip of the feeding catheter. The gastrojejunostomy was created in hand-sewn fashion in 2 layers using PDS suture. Excellent luminal patency was confirmed upon completion. The stomach was noted to be pink and healthy with excellent bleeding from all cut edges. The jejunojejunostomy was completed at 30 cm. This was done in stapled fashion with the enterotomy being closed with a 2 layer PDS closure. Again, excellent luminal patency was confirmed. The jejunum at the site of the feeding jejunostomy tube was straightened out and re- pexed to the abdominal wall allowing for a complete straight tube from the gastrojejunostomy through the feeding jejunostomy down toward the jejunojejunostomy. No tension was present at any of the anastomotic sites. Satisfactory hemostasis was assured at the anastomoses as well as along the aorta. The remaining omentum was placed over all the visceral contents and the midline fascia closed with a running PDS suture. Skin was reapproximated with Monocryl suture followed by Dermabond. The prior G-tube site was reapproximated internally prior to the abdominal wall closure and this skin exit site left open to granulate in. The patient was extubated in the operating room and taken to recovery uneventfully. Copy requested to: Dr. Sophia Hill /[id number]/MODL MTDD
[2017-07-22] MEDS: KETOROLAC 15 MG/1 ML SDV IVP SCH (23:58)
[2017-07-23] MEDS: HYDROmorphONE/DILAUDID 2 MG/ML INJ IVP PRN ×3 (02:20→06:32)
[2017-07-23] MEDS: KETOROLAC 15 MG/1 ML SDV IVP SCH ×4 (06:21→23:03)
--- NOTE | 2017-07-23 09:13 | PDMN ---
Medical Necessity Medical necessity: MCG: S510- gastrectomy , partial Billroth I or II 4-6 days - INPT only R internal jugular Groshong catheter placement , Near total gastrectomy with Chandler-en-Y gastrojunostomy, median arcuate ligament syndrome release, superior mesenteric artery syndrome release.
[2017-07-23] MEDS: FAMOTIDINE 20 MG TAB PO SCH ×2 (09:15→22:19)
[2017-07-23] MEDS: MULTIVIT/MINERAL/FERR GLUC 15 ML UDL TUBE SCH (09:15)
[2017-07-23] MEDS: oxyCODONE IR 15 MG TAB TUBE SCH ×4 (09:45→22:10)
--- NOTE | 2017-07-23 10:21 | ASMTCMCOM ---
CM Note CM Note Notes: Met with pt this am, she had a gastrectomy yesterday. She is in a fair bit of pain but feels that it is being adequately addressed. Pt was starting to fall asleep, so CM concluded visit before confirming address. Pt confirms she is current with: [facility] (RN) [phone] [facility] (Tube Feeds) [phone] [facility] (Hydration) [phone] Date Signed: 07/23/2017 10:17 AM Electronically Signed By:Claudia Mccurdy RN
--- NOTE | 2017-07-23 11:06 | POSTANESTH ---
Post Anesthetic Evaluation Cardiovascular Status: Similar to Pre-Op Cond Respiratory Status: Normal, Stable Level of Consciousness/Mental Status: Can Participate in Eval Pain Control: Adequate, Prn Tx Ordered Nausea/Vomiting Control: Adequate, Prn Tx Ordered Complications Possibly Related to Anesthesia: None Noted (Pt aware that she could request epidural for pain control. Heparin sq would need to be held)
[2017-07-23] MEDS: POTASSIUM Cl (KCl) 20 MEQ in D5W LR 1,000 ML IV SCH (12:05)
--- NOTE | 2017-07-23 12:45 | SOAPPROG ---
SOAP Progress Note Assessment/Plan: Assessment:doing great overnight. pain better controlled with oxycodone. no nausea for the first time >1 yr! afebrile. bp 90's. comfortable. abd soft. incis clean. NG minimal. tubes secure. k 4.5. will start low rate tube feeds today. owen out in am. cont oxycodone. NG out tomorrow vs pending tube feed tolerance. care plan reviewed with patient/family/ and nursing staff at bedside. Plan: 07/23/17 12:42 Objective: Vital Signs Temp Pulse Resp BP Pulse Ox 37.1 C 90 17 102/49 L 100 07/23/17 10:03 07/23/17 10:03 07/23/17 10:03 07/23/17 10:03 07/23/17 10:03 Laboratory Results 07/23/17 06:18 07/23/17 06:18 07/22/17 07/23/17 07/24/17 05:59 05:59 05:59 Intake Total 3174 Output Total 575 Balance 2599 ICD10 Worksheet Patient Problems: Problems Problem Status Onset Abdominal abscess Acute Dehydration Acute Hypochloremia Acute Near syncope Acute Shortness of breath Acute
--- NOTE | 2017-07-23 15:09 | SOAPPROG ---
SOAP Progress Note Assessment/Plan: Assessment: S/p median arcuate ligament release and Chandler en Y partial gastrectomy POD #1. Plan: Overall good recovery thus far. Begin jejunostomy tube feeding at 10cc/hr, may titrate to 20cc/hr. Clear liquid diet- possible NG tube removal tomorrow. Continue pain management as needed- discussed possible increase in pain level as spinal anesthetic begins to wane. Change dry dressing for previous G tube site daily. Encouraged ambulation and pulmonary toilet. Owen out tomorrow. Will recheck CMP, mag, and phosphate levels tomorrow. 07/23/17 16:19 Subjective: S/p median arcuate ligament release and Chandler en Y partial gastrectomy POD #1. Patient doing well. Had trouble sleeping overnight d/t abdominal pain. Pain rated at 8/10 this morning and improved to 4/10 after addition of oxycodone IR. No back pain. No chest pain or shortness of breath. No nausea or emesis. NG tube causing mild throat discomfort. No urinary complaints, owen in place. No ileostomy drainage. Has not ambulated yet today. Objective: Vital Signs Temp Pulse Resp BP Pulse Ox 37.1 C 90 17 102/49 L 100 07/23/17 10:03 07/23/17 10:03 07/23/17 10:03 07/23/17 10:03 07/23/17 10:03 Laboratory Results 07/23/17 06:18 07/23/17 06:18 07/22/17 07/23/17 07/24/17 05:59 05:59 05:59 Intake Total 3174 Output Total 575 Balance 2599 Physical Exam: General: alert and oriented x3, afebrile, appears comfortable. Skin: normal. HEENT: anicteric. NG tube in place and patent- minimal drainage. Heart: regular rate and rhythm, no murmurs. Lungs: CTA bilateral. Abdomen: Exquisitely tender to light touch, incision clean without erythema or drainage, g tube wound clean without erythema. Jejunostomy tube in place. Ileostomy tube in place with owen bag- no fluid. Extremities: no edema Neuro: nonfocal : urine clear with minimal sediment in owen bag. ICD10 Worksheet Patient Problems: Problems Problem Status Onset Abdominal abscess Acute Dehydration Acute Hypochloremia Acute Near syncope Acute Shortness of breath Acute
[2017-07-23] MEDS: HYDROmorphONE/DILAUDID 6 MG/30 ML PCA IV PRN ×2 (15:28→22:54)
[2017-07-23] MEDS: lamoTRIgine 100 MG TAB PO SCH (22:10)
[2017-07-24] MEDS: POTASSIUM Cl (KCl) 20 MEQ in D5W LR 1,000 ML IV SCH ×3 (01:12→21:04)
[2017-07-24] MEDS: oxyCODONE IR 15 MG TAB TUBE SCH ×6 (02:17→22:19)
[2017-07-24] MEDS: KETOROLAC 15 MG/1 ML SDV IVP SCH ×3 (06:29→17:51)
[2017-07-24] MEDS ORDERED: MAGNESIUM SULF 2 GM/WATER 50 ML IV ONE (07:27)
--- NOTE | 2017-07-24 08:15 | SOAPPROG ---
SOAP Progress Note Assessment/Plan: Assessment: S/p median arcuate ligament release and Chandler en Y partial gastrectomy POD #2. Fever. Plan: Doing well. Fever likely d/t atelectasis- no CXR at this time, encourage pulm toilet. Temps and HR trending down. WBC normal. Hgb 7.7 likely dilutionary, no transfusion. NG tube removed. Tube feed tolerated well at 10cc/hr, may titrate to goal as tolerated. Electrolytes in normal range. Magnesium 1.6, additional magnesium given. Clear liquid diet as tolerated. Owen out today. J-tube, ileostomy, PICC and Chavez lines in place- flush ileostomy daily. Plan to remove PICC line tomorrow. Continue pain management as needed. Activity as tolerated. Encouraged ambulation. Will recheck CMP, mag, and phosphate again tomorrow am. 07/24/17 12:51 Subjective: Temp of 38.6 this am, no other overnight complaints. Systolic BPs in 100s. Tolerating tube feeds well at 10cc/hr. No nausea or vomiting. No chest pain or shortness of breath. Ileostomy draining. No urinary complaints. No incision/ wound complaints. Rates pain today 6/10. Ambulated and showered last night. Objective: Vital Signs Temp Pulse Resp BP Pulse Ox 38.6 C H 129 H 20 101/49 L 95 07/24/17 06:44 07/24/17 06:44 07/24/17 06:44 07/24/17 06:44 07/24/17 06:44 Laboratory Results 07/23/17 06:18 07/24/17 05:00 07/23/17 07/24/17 07/25/17 05:59 05:59 05:59 Intake Total 3174 907 1057 Output Total 575 585 300 Balance 2599 322 757 Physical Exam: General: alert and oriented, appears comfortable, febrile with temp of 38.6. HEENT: anicteric. Skin: normal. Heart: Regular rhythm, tachycardic. Lungs: CTA bilateral. Chest: Chavez line in place, no erythema, minimal tenderness. Abdomen: Soft, tender, distended. Incision and g-tube wound clean without erythema, warmth, or discharge. Jejunostomy and ileostomy in place. Ileostomy draining brown fecal fluid. : owen clear. Extremities: no edema. PICC line in place left extremity, no erythema. Neuro: nonfocal. ICD10 Worksheet Patient Problems: Problems Problem Status Onset Abdominal abscess Acute Dehydration Acute Hypochloremia Acute Near syncope Acute Shortness of breath Acute
[2017-07-24] MEDS ORDERED: NS 500 ML IV ONE (08:30)
[2017-07-24] MEDS: MULTIVIT/MINERAL/FERR GLUC 15 ML UDL TUBE SCH (08:58)
[2017-07-24] MEDS: FAMOTIDINE 20 MG TAB PO SCH ×2 (09:02→22:25)
[2017-07-24] MEDS: HYDROmorphONE/DILAUDID 6 MG/30 ML PCA IV PRN ×2 (11:41→20:58)
--- NOTE | 2017-07-24 17:22 | ASMTCMCOM ---
NIKKY Note CM Note Notes: Today Eyad met w/ Pt. in room alone for some 45 minutes. Discussed her current medical successes and hope for the future. Discussed her interests in various academic studies. D/C Plan remains the same at this time: 1) [facility] for IV fluids, 2) [facility] for [employer] enteral feeds, and 3) [facility] RN. Pt. states she is very pleased w/ [facility]. Pt. states she will be at [facility] until sometime next week. NIKKY/MICAELA to follow. Date Signed: 07/24/2017 05:22 PM Electronically Signed By:Melyssa Silva LCSW
[2017-07-24] MEDS ORDERED: LR 1,000 ML IV ONE (18:24)
[2017-07-24] MEDS: lamoTRIgine 100 MG TAB PO SCH (20:35)
[2017-07-25] MEDS: KETOROLAC 15 MG/1 ML SDV IVP SCH ×4 (00:33→18:04)
[2017-07-25] MEDS: oxyCODONE IR 15 MG TAB TUBE SCH ×6 (02:00→22:10)
[2017-07-25] MEDS: HYDROmorphONE/DILAUDID 6 MG/30 ML PCA IV PRN ×3 (06:25→22:30)
[2017-07-25] MEDS: FAMOTIDINE 20 MG TAB PO SCH ×2 (08:35→19:50)
[2017-07-25] MEDS: MULTIVIT/MINERAL/FERR GLUC 15 ML UDL TUBE SCH (09:37)
--- NOTE | 2017-07-25 11:07 | ASMTCMCOM ---
CM Note CM Note Notes: At Pt's request, met with Pt. again today for support. Pt. still very optimistic and feeling good both physically and emotionally. Let Pt. know about my leaving [facility] yesterday so that we could discuss any issues related to terminating our working relationship. Pt. acknowledged my leaving today, but seems to be adjusting well. Note: Pt's psychiatrist is Dr. Adelina Benitez who she does still plan to see. Also, Pt. reports good experience from engaging in work with w[employer]. Note: Pt. still staying at [address] [facility] [place] [place] [address] with her el Solis and his family. Pt's mother and aunt came to visit for her surgery. Plan: [facility] RN, [facility] for [employer] enteral feeds, and [facility] for IV fluid hydration. Pt. likely to d/c next week. Date Signed: 07/25/2017 11:06 AM Electronically Signed By:Melyssa Silva LCSW
[2017-07-25] MEDS: POTASSIUM Cl (KCl) 20 MEQ in D5W LR 1,000 ML IV SCH (11:08)
[2017-07-25] MEDS: SCOPOLAMINE HYDROBROMIDE 1 MG/3 DAYS PATCH TD SCH (13:32)
[2017-07-25] MEDS ORDERED: PATCH REMOVAL 1 EA PATCH TD SCH (13:35)
[2017-07-25] MEDS ORDERED: oxyCODONE IR 15 MG TAB PO PRN (16:16)
--- NOTE | 2017-07-25 16:16 | SOAPPROG ---
SOAP Progress Note Assessment/Plan: Assessment: feeling good. intermittent fevers. pain decently controlled. no nausea. tolerating clears well. tolerating TF well. lytes normal!. no stoma issues. no wound issues. TM 39, TC 37. P 110's. comfortable. abd soft, approp incis tender. incis clean without erythema. stoma normal thin succus. J tube secure. groshung secure. PICC site clean (removed last mike). pod#3 s/ p near total gastrectomy/MALS release. doing very well. suspect fever secondary to atelectasis - low suspicion for anast leak/abscess.. encourage increasing pulm toilet exercises/coughing/deep breathing. ok to adv diet. will add po oxy IR for breakthrough. 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 voiding normally without catheter - expect mobilization of fluids today/tomorrow. patient and family are very pleased with her progress. doing great overnight. pain better controlled with oxycodone. no nausea for the first time >1 yr! afebrile. bp 90's. comfortable. abd soft. incis clean. NG minimal. tubes secure. k 4.5. will start low rate tube feeds today. owen out in am. cont oxycodone. NG out tomorrow vs pending tube feed tolerance. care plan reviewed with patient/family/ and nursing staff at bedside. Plan: 07/23/17 12:42 07/25/17 16:11 Objective: Vital Signs Temp Pulse Resp BP Pulse Ox 36.9 C 113 H 16 85/56 L 100 07/25/17 15:30 07/25/17 15:30 07/25/17 15:30 07/25/17 15:30 07/25/17 15:30 Laboratory Results 07/24/17 10:40 07/25/17 04:41 07/24/17 07/25/17 07/26/17 05:59 05:59 05:59 Intake Total 900 0966 Output Total 588 1300 Balance 322 2719 ICD10 Worksheet Patient Problems: Problems Problem Status Onset Abdominal abscess Acute Dehydration Acute Hypochloremia Acute Near syncope Acute Shortness of breath Acute
[2017-07-25] MEDS ORDERED: SODIUM FERRIC GLUCONAT/SUCROSE 125 MG in NS 100 ML IV ONE (16:18)
[2017-07-25] MEDS: lamoTRIgine 100 MG TAB PO SCH (20:02)
[2017-07-25] MEDS: oxyCODONE IR 5 MG TAB PO PRN (21:30)
[2017-07-26] MEDS: KETOROLAC 15 MG/1 ML SDV IVP SCH ×5 (00:02→23:22)
[2017-07-26] MEDS: oxyCODONE IR 15 MG TAB TUBE SCH ×6 (00:58→21:57)
[2017-07-26] MEDS: oxyCODONE IR 5 MG TAB PO PRN ×4 (01:44→20:26)
[2017-07-26] MEDS: FAMOTIDINE 20 MG TAB PO SCH ×2 (07:58→20:27)
--- NOTE | 2017-07-26 09:29 | SOAPPROG ---
SOAP Progress Note Assessment/Plan: Assessment: good night. tolerated small solid food without nausea. no further lightheadedness or dizziness. pain still notable (surgical). her preop LUQ pain and nausea remain completely resolved. tachy persists - no cp or sob. ambulated 10x yesterday - more energy than prior to surgery. no stoma drainage issues. afebrile since 6am yesterday. has not need further K+ supplementation since surgery or ongoing fluid bolus!! no voiding issues. tolerated IV iron yesterday. bp 90-100's. p 110-130. eyes energetic, face full. chest cath clean. heart reg, tachy. lungs diminished at bases. abd soft, dist, approp incis tender. no erythema. old gtube site granulating well. LUE prior PICC without phlebitis. ext nontender. pod#4 s/p near total gastrectomy/MALS. doing amazingly well. persistent postop tachy - has occurred after prior surgery as well - suspect fluid/lyte/hyperdynamic changes - low suspicion for leak/PE..... encourage po as able, po oxy for breakthrough pain, IV and REDEVELOPMENT SPECIALIST off , cont TF at goal rate - outpatient goal will be to taper down and oral intake improved. hoping for dc in the next 1-2 days. 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 feeling good. intermittent fevers. pain decently controlled. no nausea. tolerating clears well. tolerating TF well. lytes normal!. no stoma issues. no wound issues. TM 39, TC 37. P 110's. comfortable. abd soft, approp incis tender. incis clean without erythema. stoma normal thin succus. J tube secure. groshung secure. PICC site clean (removed last mike). pod#3 s/p near total gastrectomy/MALS release. doing very well. suspect fever secondary to atelectasis - low suspicion for anast leak/abscess.. encourage increasing pulm toilet exercises/coughing/deep breathing. ok to adv diet. will add po oxy IR for breakthrough. will dc IVF and REDEVELOPMENT SPECIALIST in am. voiding normally without catheter - expect mobilization of fluids today/tomorrow. patient and family are very pleased with her progress. doing great overnight. pain better controlled with oxycodone. no nausea for the first time >1 yr! afebrile. bp 90's. comfortable. abd soft. incis clean. NG minimal. tubes secure. k 4.5. will start low rate tube feeds today. owen out in am. cont oxycodone. NG out tomorrow vs pending tube feed tolerance. care plan reviewed with patient/family/ and nursing staff at bedside. Plan: 07/23/17 12:42 07/25/17 16:11 07/26/17 09:15 Objective: Vital Signs Temp Pulse Resp BP Pulse Ox 36.6 C 130 H 14 96/58 L 96 07/26/17 07:16 07/26/17 07:16 07/26/17 07:16 07/26/17 07:16 07/26/17 07:16 Laboratory Results 07/24/17 10:40 07/26/17 04:00 07/25/17 07/26/17 07/27/17 05:59 05:59 05:59 Intake Total 414 3400 Output Total 1300 2 Balance 1403 1629 ICD10 Worksheet Patient Problems: Problems Problem Status Onset Abdominal abscess Acute Dehydration Acute Hypochloremia Acute Near syncope Acute Shortness of breath Acute
[2017-07-26] MEDS: ASCORBIC ACID 500 MG TAB PO SCH (10:05)
[2017-07-26] MEDS: MULTIVIT/MINERAL/FERR GLUC 15 ML UDL TUBE SCH (10:06)
[2017-07-26] MEDS: lamoTRIgine 100 MG TAB PO SCH (20:26)
[2017-07-27] MEDS: oxyCODONE IR 5 MG TAB PO PRN ×7 (00:01→21:36)
[2017-07-27] MEDS: oxyCODONE IR 15 MG TAB TUBE SCH ×6 (01:44→23:17)
[2017-07-27] MEDS: KETOROLAC 15 MG/1 ML SDV IVP SCH ×2 (05:26→11:31)
[2017-07-27] MEDS ORDERED: DIAZEPAM 10 MG TAB PO ONE (06:42)
--- NOTE | 2017-07-27 06:49 | SOAPPROG ---
SOAP Progress Note Assessment/Plan: Assessment: new central back pain last mike - this radiated toward her hips. no nausea. no cp or sob. no abd c/o. no pain with eating. no stoma output issues. afebrile. bp 100's. p 100-110 (decreased). up in bed. comfortable. moving and speaking easily. heart regular. lungs clear. abd soft, approp dist and tender. incis clean. tubes secure. labs pending. pod#5 s/p near total gastrectomy/MALS. doing well, vitals improving. suspect back pain related to either surgical trauma/MALS release or back spasm. does not appear consist with anast leak, abscess or gastric distention. labs pending. valium trial. check lipase (r/o pancreatitis). cont po as able. cont tube feed. hopeful dc tomorrow? good night. tolerated small solid food without nausea. no further lightheadedness or dizziness. pain still notable (surgical). her preop LUQ pain and nausea remain completely resolved. tachy persists - no cp or sob. ambulated 10x yesterday - more energy than prior to surgery. no stoma drainage issues. afebrile since 6am yesterday. has not need further K+ supplementation since surgery or ongoing fluid bolus!! no voiding issues. tolerated IV iron yesterday. bp 90-100's. p 110-130. eyes energetic, face full. chest cath clean. heart reg, tachy. lungs diminished at bases. abd soft, dist, approp incis tender. no erythema. old gtube site granulating well. LUE prior PICC without phlebitis. ext nontender. pod#4 s/p near total gastrectomy/MALS. doing amazingly well. persistent postop tachy - has occurred after prior surgery as well - suspect fluid/lyte/hyperdynamic changes - low suspicion for leak/PE..... 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 hoping for dc in the next 1-2 days. cautiously optimistic regarding her meterman success here. feeling good. intermittent fevers. pain decently controlled. no nausea. tolerating clears well. tolerating TF well. lytes normal!. no stoma issues. no wound issues. TM 39, TC 37. P 110's. comfortable. abd soft, approp incis tender. incis clean without erythema. stoma normal thin succus. J tube secure. groshung secure. PICC site clean (removed last mike). pod#3 s/p near total gastrectomy/MALS release. doing very well. suspect fever secondary to atelectasis - low suspicion for anast leak/abscess.. encourage increasing pulm toilet exercises/coughing/deep breathing. ok to adv diet. will add po oxy IR for breakthrough. will dc IVF and MOTOR HOME ELECTRICAL FOREMAN in am. voiding normally without catheter - expect mobilization of fluids today/tomorrow. patient and family are very pleased with her progress. doing great overnight. pain better controlled with oxycodone. no nausea for the first time >1 yr! afebrile. bp 90's. comfortable. abd soft. incis clean. NG minimal. tubes secure. k 4.5. will start low rate tube feeds today. owen out in am. cont oxycodone. NG out tomorrow vs pending tube feed tolerance. care plan reviewed with patient/family/ and nursing staff at bedside. Plan: 07/23/17 12:42 07/25/17 16:11 07/26/17 09:15 07/27/17 06:43 Objective: Vital Signs Temp Pulse Resp BP Pulse Ox 37.2 C 110 H 12 102/68 97 07/26/17 23:24 07/26/17 23:24 07/26/17 23:24 07/26/17 23:24 07/26/17 23:24 Laboratory Results 07/27/17 05:35 07/26/17 07/27/17 07/28/17 05:59 05:59 05:59 Intake Total 3400 1318 Output Total 2 Balance 0728 1318 ICD10 Worksheet Patient Problems: Problems Problem Status Onset Abdominal abscess Acute Dehydration Acute Hypochloremia Acute Near syncope Acute Shortness of breath Acute
[2017-07-27] MEDS ORDERED: DIAZEPAM 5 MG TAB PO ONE (07:00)
[2017-07-27 08:18] LABS: PLATELET COUNT 244 10^3/uL (150-400)
[2017-07-27] MEDS: POTASSIUM/SODIUM PHOSPHATE 1 PKT TUBE SCH ×4 (09:27→20:29)
[2017-07-27] MEDS: FAMOTIDINE 20 MG TAB PO SCH ×2 (09:29→20:24)
[2017-07-27] MEDS: ASCORBIC ACID 500 MG TAB PO SCH (09:29)
[2017-07-27] MEDS: MULTIVIT/MINERAL/FERR GLUC 15 ML UDL TUBE SCH (09:29)
[2017-07-27] MEDS ORDERED: oxyCODONE IR 15 MG TAB TUBE SCH (13:30)
[2017-07-27] MEDS: DIAZEPAM 5 MG TAB PO PRN ×2 (14:10→20:29)
--- NOTE | 2017-07-27 16:39 | ASMTCMCOM ---
CM Note CM Note Notes: NIKKY Alanis RN. D/C likely tomorrow with current plan ([facility], [facility] for IV, [facility] feeds). Pt sleeping when CM to visit, CM to follow and available to support CM needs. Current D/C Plan: Likely D/C tomorrow to home with HH/IV/Feeding. Date Signed: 07/27/2017 04:39 PM Electronically Signed By:Shanda Chacon
[2017-07-27] MEDS: lamoTRIgine 100 MG TAB PO SCH (20:29)
[2017-07-27] MEDS ORDERED: IBUPROFEN 200 MG TAB PO SCH (22:00)
[2017-07-27] MEDS ORDERED: GABAPENTIN 300 MG CAP PO SCH (22:00)
[2017-07-28] MEDS: oxyCODONE IR 15 MG TAB TUBE SCH ×2 (02:00→06:25)
[2017-07-28] MEDS: DIAZEPAM 5 MG TAB PO PRN ×2 (02:04→08:47)
[2017-07-28] MEDS: oxyCODONE IR 5 MG TAB PO PRN (03:57)
[2017-07-28 07:30] VITALS: BP 98/77
[2017-07-28] MEDS: FAMOTIDINE 20 MG TAB PO SCH (08:47)
[2017-07-28] MEDS: ASCORBIC ACID 500 MG TAB PO SCH (08:47)
[2017-07-28] MEDS: MULTIVIT/MINERAL/FERR GLUC 15 ML UDL TUBE SCH (08:49)
[2017-07-28] MEDS ORDERED: MULTIVIT/MINERAL/FERR GLUC 15 ML UDL PO SCH (09:00)
[2017-07-28] MEDS ORDERED: POTASSIUM/SODIUM PHOSPHATE 1 PKT PO SCH (09:00)
[2017-07-28] MEDS ORDERED: oxyCODONE IR 15 MG TAB PO SCH (09:00)
[2017-07-28] MEDS ORDERED: DIAZEPAM 5 MG TAB PO PRN (09:01)
--- NOTE | 2017-07-28 09:15 | PDIAF ---
- Diagnosis Diagnosis: Intestinal dysmotility Code Status: Full Code - Medication Management Discharge Medications: Medications to Continue on Transfer Ascorbic Acid [Vitamin C 500 mg (*)] 500 mg PO DAILY 12/03/16 [Last Taken ] lamoTRIgine [LamICTAL 100 MG (*)] 100 mg PO HS 12/03/16 [Last Taken 06/30/17] ALPRAZolam [Xanax 0.5 MG (*)] 0.5 mg PO TID PRN 06/10/17 [Last Taken 06/30/17] Dicyclomine [Bentyl 10 MG (*)] 10 mg PO QID PRN #30 cap 06/12/17 [Last Taken 12/09] Multivit/Mineral/Ferr Gluc [Cerovite Liquid (*)] 15 ml TUBE DAILY udl 06/14/17 [Last Taken 06/30/17] Diazepam [Valium 5 MG (*)] 5 mg PO Q4HRS PRN #60 tab 07/28/17 [Last Taken Unknown] Meloxicam 7.5 mg PO DAILY #30 tablet 07/28/17 [Last Taken Unknown] oxyCODONE CR [Oxycontin] 20 mg PO BID #30 tab 07/28/17 [Last Taken Unknown] oxyCODONE IR [Oxycodone Ir (*)] 5 - 10 mg PO Q3 PRN #90 tab 07/28/17 [Last Taken Unknown] Additional Medication Instructions: Discontinue pepcid, phenergan, potassium, and daily saline infusions. Discharge Medications: Refer to the Discharge Home Medication list for PRN reason. PICC Care - Routine: Yes (flush Groshong catheter weekly with heparinized saline solution.) - Orders Services needed: Home Care, Registered Nurse Home Care Face to Face: I certify that this patient was under my care and that I had the required [id number] encounter meeting the encounter requirements on the discharge day. My findings support the fact that the patient is homebound as defined in Home Care Face to Face Continued: CMS Chapter 7 Medicare Benefits Manual 30.1.1 , The condition of the patient is such that there exists a normal inability to leave home and consequently, leaving home would require a considerable and taxing effort. Isolation Type: None Diet Recommendation: no restrictions on diet Diet Texture: Regular Texture Diet Tube feeding: Continue [employer] formula at 80cc/hr with water flushes. Wound Care Instructions: Irrigate ileostomy catheter daily and prn. May shower with Groshong catheter. Additional Instructions: Activity as tolerated. Encourage postural awareness. No lifting >30lbs for 1 month. May shower. Diet as able. Continuous tube feeds at 80cc/hr with water flushes. - Labs/Radiology CBC w/diff Date: 08/04/17 CMP Date: 08/04/17 - Follow Up Care Current Providers and Referrals: Umu Hill DO [Primary Care Provider] - Richy Yao MD [Medical Doctor] - follow up in 1 week
--- NOTE | 2017-07-28 13:29 | GDS ---
[f rep st] DISCHARGE SUMMARY ADMISSION DATE: 07/22/2017 DISCHARGE DATE: 07/28/2017 DATE OF SURGERY: 07/22/2017 PROCEDURES: Near-total gastrectomy with Chandler-en-Y gastrojejunostomy, median arcuate ligament release, right internal jugular Groshong catheter placement, superior mesenteric artery syndrome release, and takedown of gastrocutaneous fistula. ADMISSION DIAGNOSES: 1. Intestinal dysmotility. 2. Median arcuate ligament syndrome. 3. Gastroparesis. 4. Hypokalemia. HOSPITAL COURSE: 21-year-old female with a complicated gastrointestinal history. Her past medical history is significant for intestinal dysmotility, median arcuate ligament syndrome, gastroparesis, hypokalemia, and dehydration. Her relevant surgical history includes total colectomy and gastrostomy, jejunostomy, and ileostomy tube placements. She was admitted for the above surgical procedures. Her course in the hospital was overall uncomplicated. Notable events included persistent tachycardia which had been trending down prior to discharge averaging in the 110s. Her prior postoperative courses were all significant for tachycardia. Her vital signs have been otherwise stable. Postop, her chronic nausea or vomiting had completely abated. She tolerated her tube feeds well at her goal rate of 80 cc/hr. She was tolerating a p.o. diet well in small amounts. Her medications were all transitioned orally without difficulty. During her stay, her PICC line was removed. During her 2 days prior to discharge, she had been complaining of low back pain. This was felt most likely attributable to musculoskeletal causes related to her posture. She was transitioned to OxyContin with oxycodone for breakthrough pain, Valium and Celecoxib. Her electrolytes and liver enzymes all nicely stabilized with her potassium at 4.6 - she did not require any further potassium supplementation. She was no longer requiring daily fluid challenges. She was given a home prescription for OxyContin, oxycodone, meloxicam, and valium. Wound care instructions and pain management plan were discussed with the patient and her family. She is to discontinue her home phenergan, potassium, IV fluids, and Pepcid. ACTIVITY: As tolerated. DIET: Regular, as able. Continue with jejunostomy tube feeds at 80cc/hr. DISCHARGE INSTRUCTIONS: May shower. Plan to see her back in the office in 1 week. We will recheck a BMP and CBC prior to her followup visit. All questions were answered and addressed with the patient and her family. HOME MEDICATIONS: Vitamin C, Lamictal, Xanax, Bentyl, multivitamin, Valium, OxyContin, oxycodone, and meloxicam. /[id number]/MODL MTDD
--- NOTE | 2017-07-28 15:49 | ASDISCHSUM ---
Discharge Information Plan Status:IV ABX/Infusion Medically Cleared to Leave:07/28/2017 Discharge Date:07/28/2017 01:00 PM D/C Disposition:Home Health Service [facility] D/C Disposition:Home, Routine, Self-Care Projected Discharge Date:07/28/2017 11:00 AM Transportation at D/C: Discharge Delay Reason: Follow-Up Date:07/28/2017 11:00 AM Discharge Slot: Final Diagnosis: Placement Information Referral Type:*Home Health Care Services Referral ID:[id number] Provider Name:[facility] Address 1:[address] [address] Address 2: City:[place] Selection Factors: State:[place] Referral Type:Home Infusion Referral ID:[id number] Provider Name:[employer] Address 1:[address] Address 2: City:[place] Selection Factors: State:[place] Patient Contact Information Contact Name:AGUILAR Relationship:Other Address: Work Phone: City: [facility] Phone: [facility]/Zip Code: Email: Financial Information Financial Class:HMO and PPO Plans Primary Plan Desc: OUT OF STATE PPO Primary Plan Number:[id number] Secondary Plan Desc:MED[place] Secondary Plan Number:[id number] Assessment Information [facility] CM Progress Note CM Note CM Note Notes: Met with pt this am, she had a gastrectomy yesterday. She is in a fair bit of pain but feels that it is being adequately addressed. Pt was starting to fall asleep, so CM concluded visit before confirming address. Pt confirms she is current with: [facility] (RN) [phone] [facility] (Tube Feeds) [phone] [facility] (Hydration) [phone] Date Signed: 07/23/2017 10:17 AM Electronically Signed By:Claudia Mccurdy RN [facility] CM Progress Note CM Note CM Note Notes: Today Eyad met w/ Pt. in room alone for some 45 minutes. Discussed her current medical successes and hope for the future. Discussed her interests in various academic studies. D/C Plan remains the same at this time: 1) [facility] for IV fluids, 2) [facility] for [employer] enteral feeds, and 3) [facility] RN. Pt. states she is very pleased w/ [facility] RN[facility]. Pt. states she will be at [facility] until sometime next week. CM/SW to follow. Date Signed: 07/24/2017 05:22 PM Electronically Signed By:Melyssa Silva LCSW [facility] CM Progress Note CM Note CM Note Notes: At Pt's request, met with Pt. again today for support. Pt. still very optimistic and feeling good both physically and emotionally. Let Pt. know about my leaving [facility] yesterday so that we could discuss any issues related to terminating our working relationship. Pt. acknowledged my leaving today, but seems to be adjusting well. Note: Pt's psychiatrist is Dr. Adelina Benitez who she does still plan to see. 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 Note: Pt. still staying at [facility] [place] [address] with her el Solis and his family. Pt's mother and aunt came to visit for her surgery. Plan: [facility], [facility] for [employer] enteral feeds, and [facility] for IV fluid hydration. Pt. likely to d/c next week. Date Signed: 07/25/2017 11:06 AM Electronically Signed By:Melyssa Silva LCSW [facility] CM Progress Note CM Note CM Note Notes: NIKKY Alanis RN. D/C likely tomorrow with current plan ([facility], [facility] for IV, [facility] feeds). Pt sleeping when CM to visit, CM to follow and available to support CM needs. Current D/C Plan: Likely D/C tomorrow to home with HH/IV/Feeding. Date Signed: 07/27/2017 04:39 PM Electronically Signed By:Shanda Chacon Case Management Discharge Plan Note Case Management Discharge Discharge Order Complete? Answers: Yes Patient to Obtain Answers: via [facility] Transportation Arranged Answers: Family/Friends EMTALA Complete Answers: No Case Management Transport Answers: No Form Complete Faxed Final Orders Answers: Yes Agency/Facility Transfer Answers: Yes Report Printed & Faxed to Receiving Agency Family Notified Answers: Yes Discharge Comments Notes: CM spoke w/ ELYSIA Peralta regarding pts discharge. Pt will discontinue pepcid, phenergan, potassium and daily saline infusion. CM notified [facility] of this. Pt will continue w/ [facility] and [facility] for enteral feeds. CM sent d/c orders to both facilities. CM called Luciana Steven at [facility] to inform her of the d/c. CM attempted to meet w/ pt but she was asleep. CM spoke w/ pts Mom. Pt will go back to residing w/ her fiance in [place]. CM available for changes. Plan: [facility], RN and [facility] Date Signed: 07/28/2017 10:48 AM Electronically Signed By:BRENDA Farah Intervention Information
== END 2017-07-28 13:00 | disposition home health service (06) | DRG 327 ==
LOC: F3E 12:44
PROVIDERS: ADMIT Surgery; ATTEND Surgery
DX: K59.8 Other specified functional intestinal disorders (principal); K31.84 Gastroparesis; I77.4 Celiac artery compression syndrome; K55.1 Chronic vascular disorders of intestine; E87.6 Hypokalemia; I97.89 Other postprocedural complications and disorders of the circulatory system, not elsewhere classified; J98.11 Atelectasis; R00.0 Tachycardia, unspecified; R50.9 Fever, unspecified; R11.2 Nausea with vomiting, unspecified; E86.0 Dehydration; M54.5 Low back pain; K75.2 Nonspecific reactive hepatitis; F32.9 Major depressive disorder, single episode, unspecified; F41.8 Other specified anxiety disorders; Z90.49 Acquired absence of other specified parts of digestive tract; Z93.4 Other artificial openings of gastrointestinal tract status; Z93.1 Gastrostomy status; Z93.2 Ileostomy status
CPT/HCPCS: 82607-90; C1788; J0690; J1170; J1200; J1642; J1885; J2060; J2250; J2274; J2550; J2704; J2916; J3010; J3475; J3480

== ENCOUNTER 2017-11-14 17:14 | Emergency (ER) | payer BC, MEDICAID ==
[2017-11-14 17:57] LABS: PLATELET COUNT 338 10^3/uL (150-400)
[2017-11-14] MEDS ORDERED: HYDROmorphONE/DILAUDID 1 MG/ML INJ IVP ONE ×3 (18:06→23:05)
[2017-11-14] MEDS ORDERED: ONDANSETRON 4 MG/2 ML VIAL IVP ONE (18:06)
--- NOTE | 2017-11-14 18:08 | EDPHY ---
H & P Stated Complaint: worsening thoracic pain--multiple thoracic fxs- Time Seen by Provider: 11/14/17 17:50 HPI/ROS: CHIEF COMPLAINT: Left upper extremity weakness, new thoracic pain HISTORY OF PRESENT ILLNESS: 21-year-old female with medical history significant for T3 through T12 fracture secondary to seizure, history of chronic pain since, has been followed by both Dr. Felipe Juarez and has now upcoming appoint with Dr. Hawley for evaluation of her chronic thoracic back pain. She presents to the ER stating that this morning she felt a"pop"in her thoracic region is experiencing new paresthesia right lateral to this location. She is also complaining of 3 days of new left upper extremity weakness, intermittent paresthesias. Atraumatic. No history of major minor head or neck injury or manipulation recently. No facial complaints. No headache. No trauma. No manipulation. No incontinence no retention no saddle anesthesia. REVIEW OF SYSTEMS: A ten point review of systems was performed and is negative with the exception of the items mentioned in the HPI PAST MEDICAL & SURGICAL HISTORY: Multiple thoracic fracture. Chronic back pain. History of intestinal dysmotility, gastroparesis. SOCIAL HISTORY: Nonsmoker PHYSICAL EXAM (Prior to examination, patient consented to physical exam, hands were washed and my usual and customary physical exam procedures followed) 1) GENERAL: Well-developed, well-nourished, alert and oriented. Appears to be in no acute distress. 2) HEAD: Normocephalic, atraumatic 3) HEENT: Pupils equal, round, reactive to light bilaterally. Sclera anicteric. Symmetrical facies 4) NECK: Full range of motion, no meningeal signs. 5) LUNGS: Clear auscultation bilaterally, no wheezes, no rhonchi, no retractions. 6) HEART: Regular rate and rhythm, no murmur, no heave, no gallop. Slightly decreased sensation right sided chest mid axillary line. No focal tenderness. No lesions no vesicles. 7) ABDOMEN: No guarding, no rebound, no focal tenderness, negative McBurney's, negative Zambrano's, negative Rovsing's, negative peritoneal sign, 8) MUSCULOSKELETAL: Moving all extremities, no focal areas of tenderness, no obvious trauma. No peripheral edema or discoloration. 9) BACK: No CVA tenderness, no midline vertebral tenderness, no fluctuance, no step-off, no obvious trauma, no visual or palpable abnormality. 10) SKIN: No rash, no petechiae. 11) Psychiatric: Patient is oriented X 3, there is no agitation. 12) NEURO: Awake, alert, and oriented to person, place and time. Answers questions appropriately. No cerebellar dysfunction. Cranial nerves 2 through to 12 intact. Normal steady gait. Upper extremity: Focal weakness to the left upper extremity. No atrophy. Brisk pulses in coloration distally. Lower extremities bilaterally with strength 5 / 5, reflexes 2+ at Achilles and patella DIFFERENTIAL DIAGNOSIS: In no particular order including but not limited to acute on chronic back pain, lost medication, acute nerve compression. - Personal History LMP (Females 10-55): Irregular - Medical/Surgical History Hx Asthma: No Hx Chronic Respiratory Disease: No Hx Diabetes: No Hx Cardiac Disease: No Hx Renal Disease: No Hx Cirrhosis: No Hx Alcoholism: No Hx HIV/AIDS: No Hx Splenectomy or Spleen Trauma: No Other PMH: large intestine removed, [facility] 09/07 content illiostomy, intestinal seudo obstruction, j tube placed, g tube placed, gastroparesis, epilepsy--. thorracic fx - Social History Smoking Status: Never smoked Constitutional: Initial Vital Signs Temperature (C) 37.0 C 11/14/17 17:20 Heart Rate 108 H 11/14/17 17:20 Respiratory Rate 22 H 11/14/17 17:20 Blood Pressure 101/72 11/14/17 17:20 O2 Sat (%) 93 11/14/17 17:20 O2 Delivery Mode Room Air Allergies/Adverse Reactions: milk Allergy (Verified 07/01/17 13:32) mustard Allergy (Verified 07/01/17 13:32) Home Medications: Medication Instructions Recorded Ascorbic Acid [Vitamin C 500 mg 500 mg PO DAILY 12/03/16 (*)] lamoTRIgine [LamICTAL 100 MG (*)] 100 mg PO HS 12/03/16 ALPRAZolam [Xanax 0.5 MG (*)] 0.5 mg PO TID PRN 06/10/17 Dicyclomine [Bentyl 10 MG (*)] 10 mg PO QID PRN #30 cap 06/12/17 Multivit/Mineral/Ferr Gluc 15 ml TUBE DAILY udl 06/14/17 [Cerovite Liquid (*)] Diazepam [Valium 5 MG (*)] 5 mg PO Q4HRS PRN #60 tab 07/28/17 Meloxicam 7.5 mg PO DAILY #30 tablet 07/28/17 oxyCODONE CR [Oxycontin] 20 mg PO BID #30 tab 07/28/17 oxyCODONE IR [Oxycodone Ir (*)] 5 - 10 mg PO Q3 PRN #90 tab 07/28/17 Medical Decision Making - Diagnostics Imaging Results: Imaging Impressions Cervical Spine MRI 11/14/17 18:05 Impression: 1. No acute findings in the cervical spine. 2. Subacute compression fractures in the thoracic spine. Findings discussed with Alex Rios PA-C, on November 14, 2017 at 2217. Thoracic Spine MRI 11/14/17 18:05 Impression: 1. No definite acute fracture identified. 2. Subacute/old thoracic compression fractures including a severe T6 compression fracture, without significant spinal canal narrowing or neural foraminal stenosis. Findings discussed with Alex Rios PA-C, on November 14, 2017 at 22:17. Images reviewed myself ED Course/Re-evaluation: 10:47 p.m.: Re-evaluation, discussed the MRI results of the cervical and thoracic spine. On reexamination she has symmetrical strength of the upper extremities with no weakness, no wrist drop. Patient has been given IV Dilaudid in the emergency department. She would not be given a prescription for Dilaudid discharge. Recommend she has caution with future prescriptions noting that she dropped a bottle of Dilaudid on the ground and it broke. She verbalized understanding and acceptance of this. She has an upcoming appointment with Dr. Hawley they recommend she keep. He may review her imaging studies from the hospital. This time she has no evidence of spinal compressive disorder. Plan will be discharge home. Usual and customary spinal precautions instructions provided. I saw this patient independently based on established practice protocols. Care of patient under supervision of secondary supervising physician Dr Arguello with whom I discussed case . - Data Points Laboratory Results: Laboratory Results 11/14/17 17:45 11/14/17 17:45 11/14/17 11/14/17 11/14/17 17:45 17:45 17:45 WBC 7.53 10^3/uL 10^3/uL (3.80-9.50) RBC 4.55 10^6/uL 10^6/uL (4.18-5.33) Hgb 13.1 g/dL g/dL (12.6-16.3) Hct 39.3 % % (38.0-47.0) MCV 86.4 fL fL (81.5-99.8) MCH 28.8 pg pg (27.9-34.1) MCHC 33.3 g/dL g/dL (32.4-36.7) RDW 17.2 % H % (11.5-15.2) Plt Count 338 10^3/uL 10^3/uL (150-400) MPV 8.7 fL fL (8.7-11.7) Neut % (Auto) 56.0 % % (39.3-74.2) Lymph % (Auto) 33.3 % % (15.0-45.0) Izard % (Auto) 9.8 % % (4.5-13.0) Eos % (Auto) 0.5 % L % (0.6-7.6) Baso % (Auto) 0.3 % % (0.3-1.7) Nucleat RBC Rel Count 0.0 % % (0.0-0.2) Absolute Neuts (auto) 4.21 10^3/uL 10^3/uL (1.70-6.50) Absolute Lymphs (auto) 2.51 10^3/uL 10^3/uL (1.00-3.00) Absolute Monos (auto) 0.74 10^3/uL 10^3/uL (0.30-0.80) Absolute Eos (auto) 0.04 10^3/uL 10^3/uL (0.03-0.40) Absolute Basos (auto) 0.02 10^3/uL 10^3/uL (0.02-0.10) Absolute Nucleated RBC 0.00 10^3/uL 10^3/uL (0-0.01) Immature Gran % 0.1 % % (0.0-1.1) Immature Gran # 0.01 10^3/uL 10^3/uL (0.00-0.10) Sodium 139 mEq/L mEq/L (135-145) Potassium 4.0 mEq/L mEq/L (3.3-5.0) Chloride 107 mEq/L mEq/L (97-110) Carbon Dioxide 23 mEq/l mEq/l (22-31) Anion Gap 9 mEq/L mEq/L (8-16) BUN 5 mg/dL L mg/dL (7-23) Creatinine 0.4 mg/dL L mg/dL (0.6-1.0) Estimated GFR > 60 Glucose 86 mg/dL mg/dL (70-100) Calcium 9.0 mg/dL mg/dL (8.5-10.4) Beta HCG, Qual NEGATIVE Medications Given: Discontinued Medications Heparin Sodium (Porcine) (Heparin Lock Flush) 500 unit IVP EDNOW ONE Stop: 11/14/17 23:29 Last Admin: 11/14/17 23:30 Dose: 500 unit Hydromorphone HCl (Dilaudid) 1 mg IVP EDNOW ONE Stop: 11/14/17 18:07 Last Admin: 11/14/17 18:46 Dose: 1 mg Hydromorphone HCl (Dilaudid) 1 mg IVP EDNOW ONE Stop: 11/14/17 20:30 Last Admin: 11/14/17 20:43 Dose: 1 mg Hydromorphone HCl (Dilaudid) 0.5 mg IVP EDNOW ONE Stop: 11/14/17 23:06 Last Admin: 11/14/17 23:08 Dose: 0.5 mg Ondansetron HCl (Zofran) 4 mg IVP EDNOW ONE Stop: 11/14/17 18:07 Last Admin: 11/14/17 18:45 Dose: 4 mg Departure - Departure Disposition: Home, Routine, Self-Care Clinical Impression: Chronic neck and back pain Condition: Good Instructions: Neck Pain (ED) Additional Instructions: Return to the ER immediately if you experience new or worsening neck pain, dizziness, visual disturbance, double vision, lightheadedness, facial droop, or any other symptoms that concern you. Avoid deep tissue massage and chiropractic manipulation, until symptom-free, and cleared by your regular health care provider. Referrals: Dale Hawley MD [Medical Doctor] - 2-3 days, call for appt.
[2017-11-14] MEDS ORDERED: HYDROmorphONE/DILAUDID 1 MG/ML INJ ONE (23:12)
[2017-11-14 23:35] VITALS: BP 104/64
== END 2017-11-14 23:33 | disposition home or self-care (01) ==
DX: M54.2 Cervicalgia (principal); M54.6 Pain in thoracic spine; R53.1 Weakness
CPT/HCPCS: 96374; J1170; J1642; J2405

== ENCOUNTER 2017-11-16 04:03 | Emergency (ER) | payer BC, MEDICAID ==
[2017-11-16] MEDS ORDERED: HYDROmorphONE/DILAUDID 1 MG/ML INJ IM ONE (04:54)
[2017-11-16] MEDS ORDERED: PROMETHAZINE HCL 25 MG/ML INJ IM ONE (05:07)
--- NOTE | 2017-11-16 05:15 | EDPHY ---
H & P Stated Complaint: BACK PAIN, HERE FRIDAY NIGHT Time Seen by Provider: 11/16/17 04:54 HPI/ROS: Chief Complaint: Back pain HPI: 21-year-old woman with a complex medical history including multiple GI surgeries with an ostomy. She also sustained multiple thoracic spine fractures after a seizure in September. She was seen here 2 days ago with worsening thoracic back pain. At that time MRIs of her cervical and thoracic spines showed for multiple fractures but no acute process. Patient had been prescribed a vial of hydromorphone by her primary care physician because she is not absorbing any the pain tablets she was given. Unfortunately she dropped a bottle and it broke. She has not had any pain medicine since she was seen here earlier. She is complaining of worsening pain. No new numbness or weakness or other neurologic symptoms. She is an appointment to follow up and see her doctor tomorrow but states the pain is severe she has been unable to sleep. ROS: 10 point Review of Systems is negative except as noted in the HPI. Social History: No smoking, no alcohol, no recreational drug use Family History: non-contributory Physical Exam: Gen: Awake, Alert, No Distress HEENT: Nose: no rhinorrhea Eyes: PERRLA, EOMI Mouth: Moist mucosa Neck: Supple, no JVD Chest: nontender, lungs clear to auscultation Heart: S1, S2 normal, no murmur Abd: Soft, non-tender, no guarding Back: no CVA tenderness, no midline tenderness Ext: no edema, non-tender Skin: no rash Neuro: CN II-XII intact, Sensation grossly intact, Strength 5/5 in bilateral upper and lower extremities - Personal History LMP (Females 10-55): Unknown Current Tetanus Diphtheria and Acellular Pertussis (TDAP): Yes - Medical/Surgical History Hx Asthma: No Hx Chronic Respiratory Disease: No Hx Diabetes: No Hx Cardiac Disease: No Hx Renal Disease: No Hx Cirrhosis: No Hx Alcoholism: No Hx HIV/AIDS: No Hx Splenectomy or Spleen Trauma: No Other PMH: large intestine removed, [facility] 09/07 content illiostomy, intestinal seudo obstruction, j tube placed, g tube placed, gastroparesis, epilepsy--. thorracic fx - Social History Smoking Status: Never smoked Constitutional: Initial Vital Signs Temperature (C) 36.6 C 11/16/17 04:07 Heart Rate 108 H 11/16/17 04:07 Respiratory Rate 16 11/16/17 04:07 Blood Pressure 97/82 H 11/16/17 04:07 O2 Sat (%) 97 11/16/17 04:07 O2 Delivery Mode Room Air Allergies/Adverse Reactions: milk Allergy (Verified 07/01/17 13:32) mustard Allergy (Verified 07/01/17 13:32) Home Medications: Medication Instructions Recorded Ascorbic Acid [Vitamin C 500 mg 500 mg PO DAILY 12/03/16 (*)] lamoTRIgine [LamICTAL 100 MG (*)] 100 mg PO HS 12/03/16 ALPRAZolam [Xanax 0.5 MG (*)] 0.5 mg PO TID PRN 06/10/17 Dicyclomine [Bentyl 10 MG (*)] 10 mg PO QID PRN #30 cap 06/12/17 Multivit/Mineral/Ferr Gluc 15 ml TUBE DAILY udl 06/14/17 [Cerovite Liquid (*)] Diazepam [Valium 5 MG (*)] 5 mg PO Q4HRS PRN #60 tab 07/28/17 Meloxicam 7.5 mg PO DAILY #30 tablet 07/28/17 oxyCODONE CR [Oxycontin] 20 mg PO BID #30 tab 07/28/17 oxyCODONE IR [Oxycodone Ir (*)] 5 - 10 mg PO Q3 PRN #90 tab 07/28/17 Medical Decision Making ED Course/Re-evaluation: 21-year-old female presenting with back pain status post recent thoracic spine fractures. She understands I cannot rider prescription for more pain medication. She is just asking for relief in the emergency department. She is planning on following up with primary care physician tomorrow. She has an appointment to see spine surgeon at the end of next week. I will give her a single dose of IM hydromorphone and some Phenergan now. She is in agreement with the plan. - Data Points Medications Given: Discontinued Medications Hydromorphone HCl (Dilaudid) 2 mg IM EDNOW ONE Stop: 11/16/17 04:55 Last Admin: 11/16/17 05:00 Dose: 2 mg Departure - Departure Disposition: Home, Routine, Self-Care Clinical Impression: Back pain Condition: Good Instructions: Back Pain (ED) Additional Instructions: Follow up with primary care physician tomorrow. Return to the emergency department for new numbness or weakness, uncontrolled pain, fevers or chills, or any other concerns. Referrals: Umu Hill DO [Primary Care Provider] - As per Instructions
[2017-11-16 05:54] VITALS: BP 110/84
== END 2017-11-16 05:54 | disposition home or self-care (01) ==
DX: M54.9 Dorsalgia, unspecified (principal)
CPT/HCPCS: J1170; J2550

== ENCOUNTER 2017-11-16 18:23 | Emergency (ER) | payer BC, MEDICAID ==
[2017-11-16] MEDS ORDERED: KETAMINE 500 MG/10 ML VIAL NASAL ONE (18:45)
--- NOTE | 2017-11-16 18:51 | EDPHY ---
H & P Stated Complaint: exacerbation Tspine pain;spilled Dilaudid 2 days ago Time Seen by Provider: 11/16/17 18:35 HPI/ROS: CHIEF COMPLAINT: Exacerbation of chronic back pain HISTORY OF PRESENT ILLNESS: 21-year-old female with complex medical history including chronic back pain secondary to multiple thoracic spine fractures, seen in the ER 3 days ago at which point she had MRI of the cervical and thoracic spine, complaining of pain after she dropped and leather coater bottle of Dilaudid, seen in the ER this morning approximately 5:00 a.m. for pain, given Dilaudid, discharged home feeling improved but states that her pain is return this afternoon she is also feeling nauseous, anxious. Today is Friday. She is planning on following up with primary care provider tomorrow. She is complaining of acute exacerbation of her pain. She denies: Incontinence, retention, saddle anesthesia, new radicular symptoms the upper lower extremities , dyspnea. REVIEW OF SYSTEMS: A ten point review of systems was performed and is negative with the exception of the items mentioned in the HPI PAST MEDICAL & SURGICAL HISTORY: Chronic back pain SOCIAL HISTORY: Nonsmoker no alcohol no IV drug use PHYSICAL EXAM (Prior to examination, patient consented to physical exam, hands were washed and my usual and customary physical exam procedures followed) 1) GENERAL: Well-developed, well-nourished, alert and oriented. Appears uncomfortable and anxious 2) HEAD: Normocephalic, atraumatic 3) HEENT: Pupils equal, round, reactive to light bilaterally. Sclera anicteric. Nasopharynx, oropharynx, clear, no lesions. 4) NECK: Full range of motion, no meningeal signs. 5) LUNGS: Clear auscultation bilaterally, no wheezes, no rhonchi, no retractions. 6) HEART: Regular rate and rhythm, no murmur, no heave, no gallop. 7) ABDOMEN: No guarding, no rebound, no focal tenderness, negative McBurney's, negative Zambrano's, negative Rovsing's, negative peritoneal sign, 8) MUSCULOSKELETAL: Moving all extremities, no focal areas of tenderness, no obvious trauma. No peripheral edema or discoloration. 9) BACK: No midline pain.. No CVA tenderness, no midline vertebral tenderness, no fluctuance, no step-off, no obvious trauma, no visual or palpable abnormality. Patella, Achilles reflexes intact to bilateral strength 5/5 10) SKIN: No rash, no petechiae. 11) NEURO: Awake, alert, and oriented to person, place and time. Answers questions appropriately. There were no obvious focal neurologic abnormalities. No cerebellar dysfunction. Normal steady gait. Upper and lower extremities bilaterally with strength 5 / 5, reflexes 2+.. DIFFERENTIAL DIAGNOSIS: In no particular order, including but not limited to, fracture, sprain/strain, cauda equina, spinal infectious etiology. MEDICAL DECISION MAKING 6:51 p.m.: I am familiar with this patient's medical history. This is her 3rd emergency department visit in 3 days after she dropped an leather coater bottle of hydromorphone. Here in emergency department the patient I discussed alternatives to opiates. I do not think it is appropriate to provide further opiates from the emergency department at this time. She is complaining mild nausea anxiety which may be related to acute opiate withdrawal. Will administer intranasal ketamine see if this provides some relief. 7:40 p.m. re-evaluation. Feeling improvement after intranasal ketamine and intramuscular Phenergan. Lower index of suspicion for cauda equina, epidural abscess, epidural hematoma, lumbar myositis, diskitis, as the patient is neurologically intact in the lower extremities, has patella and Achilles reflexes intact and equal bilaterally, has no neurologic deficits, no incontinence, no retention, no midline pain, no fluctuance, afebrile, no flulike symptoms. Pain may be secondary to muscular strain, may be secondary to discogenic etiology. At this point I do not identify definitive indication for emergent MRI, however patient may necessitate this on an outpatient basis. Patient given acute back pain precautions. She will plan on following up with her primary care provider tomorrow (Friday). - Personal History LMP (Females 10-55): Unknown Current Tetanus Diphtheria and Acellular Pertussis (TDAP): Yes - Medical/Surgical History Hx Asthma: No Hx Chronic Respiratory Disease: No Hx Diabetes: No Hx Cardiac Disease: No Hx Renal Disease: No Hx Cirrhosis: No Hx Alcoholism: No Hx HIV/AIDS: No Hx Splenectomy or Spleen Trauma: No Other PMH: large intestine removed, [facility] 09/07 content illiostomy, intestinal seudo obstruction, j tube placed, g tube placed, gastroparesis, epilepsy--. thoracic fx - Social History Smoking Status: Never smoked Constitutional: Initial Vital Signs Temperature (C) 36.6 C 11/16/17 18:28 Heart Rate 86 11/16/17 18:28 Respiratory Rate 18 11/16/17 18:28 Blood Pressure 106/73 11/16/17 18:28 O2 Sat (%) 95 11/16/17 18:28 O2 Delivery Mode Room Air Allergies/Adverse Reactions: milk Allergy (Verified 07/01/17 13:32) mustard Allergy (Verified 07/01/17 13:32) Home Medications: Medication Instructions Recorded lamoTRIgine [LamICTAL 100 MG (*)] 100 mg PO HS 12/03/16 ALPRAZolam [Xanax 0.5 MG (*)] 0.5 mg PO TID PRN 06/10/17 Diazepam [Valium 5 MG (*)] 5 mg PO Q4HRS PRN #60 tab 07/28/17 HYDROmorphone HCL [Dilaudid] 11/16/17 Medical Decision Making - Data Points Medications Given: Discontinued Medications Ketamine HCl (Ketamine) 50 mg NASAL EDNOW ONE Stop: 11/16/17 18:46 Last Admin: 11/16/17 18:54 Dose: 50 mg Promethazine HCl (Phenergan) 25 mg IM EDNOW ONE Stop: 11/16/17 19:10 Last Admin: 11/16/17 19:21 Dose: 25 mg Departure - Departure Disposition: Home, Routine, Self-Care Clinical Impression: Acute exacerbation of chronic low back pain Condition: Good Instructions: Chronic Pain (ED) Additional Instructions: Seek medical attention if you develop new or worsening pain, if you develop bladder or bowel dysfunction, numbness around your perineum, foot drop, or any other symptoms that concern you. Referrals: Umu Hill DO [Primary Care Provider] - 1 day without fail Stand Alone Forms: Narcotic Guidelines
[2017-11-16] MEDS ORDERED: PROMETHAZINE HCL 25 MG/ML INJ IM ONE (19:09)
[2017-11-16 19:33] VITALS: BP 110/72
== END 2017-11-16 19:46 | disposition home or self-care (01) ==
DX: M54.2 Cervicalgia (principal)
CPT/HCPCS: J2550

== ENCOUNTER 2017-11-23 15:20 | Emergency (ER) | payer BC, MEDICAID ==
[2017-11-23 15:26] VITALS: BP 103/64
--- NOTE | 2017-11-23 16:03 | EDPHY ---
H & P Time Seen by Provider: 11/23/17 15:53 HPI/ROS: CHIEF COMPLAINT: Back pain HISTORY OF PRESENT ILLNESS: Patient is a 21-year-old female who presents emergency department with ongoing back pain. Patient has multiple medical problems. Please refer to previous note. 1 month ago the patient had a seizure in fractured teeth the through T12. Patient was scheduled for kyphoplasty on 11/20/2017. However, after checking in for the procedure she was informed that the machine was not working properly and she would have to be rescheduled for next Friday. Patient is currently taking Lamictal, diazepam, Zofran and oxycodone oral solution. She ran out of her oral solution is in the emergency department because she is having ongoing back pain is not controlled. She requests a new prescription. She states she has had mild nausea but no actual vomiting. Her abdomen does not cause any pain at this time. She has had no fevers or chills. REVIEW OF SYSTEMS: 10 systems were reveiwed and are negative with the exception of the elements mentioned in the hisotry of present illness. Past Medical/Surgical History: Includes gastroparesis, epilepsy, GERD, intestinal pseudo-obstruction, near syncope, hypokalemia, dehydration, failure to thrive, depression Past surgical history: Includes multiple exploratory laparotomies with colectomy, reanastomosis, leak repair and subsequent will infection. She has had a PEG tube placement and a gastro jejunostomy. Smoking Status: Never smoked Physical Exam: Vitals noted GENERAL: No acute distress, alert. Slightly thin. Laying on her side in the position. HEENT: Eyes normal to inspection, normal pharynx, no signs of dehydration. NECK: Normal, supple. RESPIRATORY: Clear to auscultation bilaterally, no rales, rhonchi or wheezing. CVS: Regular rate and rhythm, no rubs, murmurs, or gallops. ABDOMEN: Soft, nontender, nondistended, no organomegaly. Benign BACK: Normal to inspection, no CVA tenderness. No noted spinal tenderness to palpation. No deformity. SKIN: Normal color, no rash, warm, dry. No pallor. EXTREMITIES: No pedal edema, no calf tenderness, no Homans sign or cords, no joint swelling. NEURO/PSYCH: Alert and oriented, normal mood and affect, normal motor sensory exam. Constitutional: Initial Vital Signs Heart Rate 106 H 11/23/17 15:24 Respiratory Rate 18 11/23/17 15:24 Blood Pressure 103/64 11/23/17 15:24 O2 Sat (%) 97 11/23/17 15:24 O2 Delivery Mode Room Air Allergies/Adverse Reactions: milk Allergy (Verified 11/23/17 15:23) mustard Allergy (Verified 11/23/17 15:23) Home Medications: Medication Instructions Recorded lamoTRIgine [LamICTAL 100 MG (*)] 50 mg PO BID 12/03/16 Diazepam [Valium 5 MG (*)] 5 mg PO Q4HRS PRN #60 tab 07/28/17 Phenergan 12.5mg tab 1 PO Q4-6PRN PRN 11/19/17 oxyCODONE ORAL SOLUTION 20 mg PO Q6 PRN 11/19/17 Multivitamins 11/20/17 oxyCODONE ORAL SOLUTION 20 mg PO Q6 5 Days bottle 11/23/17 [Roxicodone Intensol] Medical Decision Making ED Course/Re-evaluation: In the emergency department discussed possible etiologies with the patient answered all her questions. Patient requests prescription for pain medication. She has a procedure scheduled for Friday. I reviewed the patient's hospital record is noted that she checked in for her procedure on 11/20/2017. This procedure was not completed. Patient was given a prescription for oxycodone solution. She will return with worsening symptoms. She is given warnings prior to leaving. Differential Diagnosis: My differential includes but is not limited to back pain, cauda equina syndrome , bacteremia, sepsis, small-bowel obstruction, perforation, pain control, drug- seeking behavior Departure - Departure Disposition: Home, Routine, Self-Care Clinical Impression: Back pain Qualifiers: Back pain location: low back pain Chronicity: acute Back pain laterality: midline Sciatica presence: without sciatica Qualified Code(s): M54.5 - Low back pain Condition: Good Instructions: Back Pain (ED) Additional Instructions: Keep your appointment for Friday. Return with increasing pain, weakness, numbness, fever or any other concerns. Referrals: Umu Hill DO [Primary Care Provider] - 2-3 days, call for appt. Prescriptions: oxyCODONE ORAL SOLUTION [Roxicodone Intensol] 20 mg PO Q6 5 Days bottle
== END 2017-11-23 16:10 | disposition home or self-care (01) ==
DX: M54.41 Lumbago with sciatica, right side (principal); M54.42 Lumbago with sciatica, left side

== ENCOUNTER 2017-11-25 08:48 | Day surgery (SDC) | payer BC, MEDICAID ==
[2017-11-25] MEDS ORDERED: ceFAZolin 2 GM/DEXTROSE 100 ML IV ONE (09:34)
[2017-11-25] MEDS ORDERED: ALBUTEROL 3 ML DEYVIAL IH PRN (09:34)
[2017-11-25] MEDS ORDERED: HYDROmorphONE/DILAUDID 1 MG/ML INJ IVP PRN (09:34)
[2017-11-25] MEDS ORDERED: NALOXONE HCL 0.4 MG/ML INJ IVP PRN (09:34)
[2017-11-25] MEDS ORDERED: DEXAMETHASONE 10 MG/ML VIAL IVP ONE (09:34)
[2017-11-25] MEDS ORDERED: DEXAMETHASONE 4 MG/ML VIAL IVP PRN (09:34)
[2017-11-25] MEDS ORDERED: fentaNYL 100 MCG/2 ML INJ IVP PRN (09:34)
[2017-11-25] MEDS ORDERED: oxyCODONE IR 5 MG TAB PO PRN (09:34)
[2017-11-25] MEDS ORDERED: MIDAZOLAM 2 MG/2 ML VIAL IVP ONE (09:34)
[2017-11-25] MEDS ORDERED: PROMETHAZINE HCL 25 MG/ML INJ IVP PRN (09:34)
--- NOTE | 2017-11-25 09:35 | PDANEPAE ---
ANE History of Present Illness Kyphoplasty ANE Past Medical History - Cardiovascular History Hx Hypertension: No Hx Arrhythmias: No Hx Chest Pain: No Hx Coronary Artery / Peripheral Vascular Disease: No Hx CHF / Valvular Disease: No Hx Palpitations: No - Pulmonary History Hx COPD: No Hx Asthma/Reactive Airway Disease: No Hx Recent Upper Respiratory Infection: No Hx Oxygen in Use at Home: No Hx Sleep Apnea: No - Neurologic History Hx Cerebrovascular Accident: No Hx Seizures: No Hx Dementia: No - Endocrine History Hx Diabetes: No - Renal History Hx Renal Disorders: No - Liver History Hx Hepatic Disorders: No - Neurological & Psychiatric Hx Hx Neurological and Psychiatric Disorders: Yes Neurological / Psychiatric History Comment: depression, anxiety - Cancer History Hx Cancer: No - Congenital Disorder History Hx Congenital Disorders: Yes Congenital History Comment: congenital bowel obstruction - GI History Hx Gastrointestinal Disorders: Yes Gastrointestinal History Comment: congential bowel obstruction; gastoparisis; intestinal psudo-obstruction. reflux,gerd,abd pain. ileostomy - Other Health History Other Health History: NONE - Chronic Pain History Chronic Pain: Yes (general abd) - Surgical History Prior Surgeries: multiple ex laps for bowel obstruction; abcess drain placement ; colectomy; illiostomy; j tube and G tube placement; ANE Review of Systems Review of Systems: - Exercise capacity METS (RN): 3 METS ANE Patient History - Allergies Allergies/Adverse Reactions: milk Allergy (Verified 11/23/17 15:23) mustard Allergy (Verified 11/23/17 15:23) - Home Medications Home Medications: lamoTRIgine [LamICTAL 100 MG (*)] 50 mg PO BID 12/03/16 [Last Taken 11/19/17] Phenergan 12.5mg tab 1 PO Q4-6PRN PRN 11/19/17 [Last Taken 11/16/17] oxyCODONE ORAL SOLUTION 20 mg PO Q6 PRN 11/19/17 [Last Taken 11/19/17] Multivitamins 11/20/17 [Last Taken 11/19/17] - Smoking Hx Smoking Status: Never smoked - Family Anes Hx Family Hx Anesthesia Complications: none ANE Labs/Vital Signs - Vital Signs Height: 170.18 cm Weight: 40.82 kg ANE Physical Exam - Airway Neck exam: FROM Mallampati Score: Class 2 - Pulmonary Pulmonary: clear to auscultation - Cardiovascular Cardiovascular: regular rate and rhythym - ASA Status ASA Status: III ANE Anesthesia Plan Anesthesia Plan: general endotracheal anesthesia
[2017-11-25] MEDS ORDERED: PROMETHAZINE HCL 25 MG/ML INJ ONE (09:37)
--- NOTE | 2017-11-25 10:30 | PDGENHP ---
History & Physical Chief Complaint: T5 AND T6 FRACTURES DUE TO RECENT SEIZURE History of Present Illness: ONE MONTH H/O OF FRACTURES. ALSO LT SIDED RIB SUBLUXATION AT T5 AND T6. 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 Relevant Physical Exam: SEVERE FOCAL PAIN. KYPHOSIS. Cardiorespiratory Assessment: RRR, CTA
[2017-11-25] MEDS ORDERED: MIDAZOLAM 2 MG/2 ML VIAL ONE (10:56)
[2017-11-25] MEDS ORDERED: fentaNYL 100 MCG/2 ML INJ ONE ×2 (10:57→11:19)
[2017-11-25] MEDS ORDERED: PROPOFOL 200 MG/20 ML VIAL ONE (10:58)
[2017-11-25] MEDS ORDERED: DEPO METHYLPREDNISOLONE 80 MG/ML SDV ONE (12:35)
[2017-11-25] MEDS ORDERED: BUPIVACAINE 0.5% 30 ML SDV ONE (12:36)
[2017-11-25] MEDS ORDERED: IOPAMIDOL (ISOVUE-300) 100 ML BTL ONE (12:53)
[2017-11-25] MEDS ORDERED: ONDANSETRON 4 MG/2 ML VIAL IVP PRN (13:00)
[2017-11-25] MEDS ORDERED: ONDANSETRON DISINTEGRATING 4 MG TAB PO PRN (13:00)
[2017-11-25] MEDS ORDERED: HYDROmorphONE/DILAUDID 1 MG/ML INJ ONE (14:20)
--- NOTE | 2017-11-25 14:52 | POSTANESTH ---
Post Anesthetic Evaluation Cardiovascular Status: Normal, Stable Respiratory Status: Normal, Stable Level of Consciousness/Mental Status: Can Participate in Eval, Alert and Oriented Pain Control: Adequate, Prn Tx Ordered Nausea/Vomiting Control: Adequate, Prn Tx Ordered Complications Possibly Related to Anesthesia: None Noted
[2017-11-25 15:49] VITALS: BP 89/65
== END 2017-11-25 16:09 | disposition home or self-care (01) ==
LOC: FSGY 08:48
PROVIDERS: ATTEND Radiology Diagnostic Radiology
PROC: 3E0U3BZ Introduction of Anesthetic Agent into Joints, Percutaneous Approach (ICD-10-PCS; principal; 2017-11-25 10:30)
PROC: 0PS43ZZ Reposition Thoracic Vertebra, Percutaneous Approach (ICD-10-PCS; principal; 2017-11-25 10:30)
PROC: 3E0U33Z Introduction of Anti-inflammatory into Joints, Percutaneous Approach (ICD-10-PCS; principal; 2017-11-25 10:30)
DX: S22.050A Wedge compression fracture of T5-T6 vertebra, initial encounter for closed fracture (principal); S22.060A Wedge compression fracture of T7-T8 vertebra, initial encounter for closed fracture; S22.070A Wedge compression fracture of T9-T10 vertebra, initial encounter for closed fracture; S22.080A Wedge compression fracture of T11-T12 vertebra, initial encounter for closed fracture; W19.XXXA Unspecified fall, initial encounter; M81.8 Other osteoporosis without current pathological fracture; G40.909 Epilepsy, unspecified, not intractable, without status epilepticus; F32.9 Major depressive disorder, single episode, unspecified; Z93.2 Ileostomy status; Z93.1 Gastrostomy status
CPT/HCPCS: J0690; J1040; J1100; J1170; J1642; J2250; J2550; J2704; J3010; Q9967

== ENCOUNTER → 2017-12-12 | Outpatient (CLI) | payer MEDICAID, BC | LOC: BMCIMAGING 13:55 | PROVIDERS: ATTEND Family Medicine | DX: M81.0 Age-related osteoporosis without current pathological fracture (principal) ==

== ENCOUNTER 2017-12-15 21:25 | Emergency (ER) | payer MEDICAID, BC ==
[2017-12-15 21:30] VITALS: BP 108/79
--- NOTE | 2017-12-15 21:57 | EDPHY ---
H & P Time Seen by Provider: 12/15/17 21:41 HPI/ROS: CHIEF COMPLAINT: Back pain and request for pain medication refill HISTORY OF PRESENT ILLNESS: 21-year-old female with a history of multiple compression fractures after having a seizure a few months ago. She has undergone kyphoplasty the last month. She is on chronic pain medication and was transferred to Pain Management recently but missed her appointment today. She is requesting a refill for 3 days worth of pain medication until she can see her provider. She has appointment on Friday. She denies any new symptoms: Any fever or chills abdominal pain. REVIEW OF SYSTEMS: Constitutional: No fever, no chills. Eyes: No discharge. ENT: No sore throat. Cardiovascular: No chest pain, no palpitations. Respiratory: No cough, no shortness of breath. Gastrointestinal: No abdominal pain, no vomiting. Genitourinary: No hematuria. Musculoskeletal: + back pain. Skin: No rash. Neurological: No headache. Smoking Status: Never smoked Physical Exam: General Appearance: Alert and no distress. Eyes: Pupils equal and round no injection. Respiratory: Chest is nontender, lungs are clear to auscultation. Cardiac: regular rate and rhythm. Gastrointestinal: Abdomen is soft and nontender, no masses, bowel sounds normal. Musculoskeletal: Neck is supple and nontender. Extremities have full range of motion and are nontender. Skin: No rashes or lesions. Constitutional: Initial Vital Signs Temperature (C) 36.5 C 12/15/17 21:26 Heart Rate 101 H 12/15/17 21:26 Respiratory Rate 18 12/15/17 21:26 Blood Pressure 108/79 12/15/17 21:26 O2 Sat (%) 97 12/15/17 21:26 O2 Delivery Mode Room Air Allergies/Adverse Reactions: milk Allergy (Verified 12/15/17 21:30) mustard Allergy (Verified 12/15/17 21:30) Home Medications: Medication Instructions Recorded lamoTRIgine [LamICTAL 100 MG (*)] 50 mg PO BID 12/03/16 oxyCODONE ORAL SOLUTION 20 mg PO Q6 PRN 11/19/17 Multivitamins 11/20/17 oxyCODONE ORAL SOLUTION 20 mg PO Q6 5 Days bottle 11/23/17 [Roxicodone Intensol] oxyCODONE ORAL SOLUTION 20 mg PO TID PRN 3 Days bottle 12/15/17 [Roxicodone Intensol] Medical Decision Making ED Course/Re-evaluation: 21-year-old female here with chronic back pain secondary to multiple fractures. She is afebrile and ambulatory. She does use ER frequently for pain medication but she does guarantee that she has appointment with pain management and 3 days. We discussed appropriate use ER and she was granted prescription for 3 days with a for chronic pain medication. Differential Diagnosis: Epidural abscess, cauda equina, drug-seeking behavior, UTI pyelonephritis, renal colic - Data Points Medications Given: Discontinued Medications Oxycodone HCl (Oxycodone Ir) 10 mg PO ONCE ONE Stop: 12/15/17 21:53 Last Admin: 12/15/17 22:02 Dose: 10 mg Departure - Departure Disposition: Home, Routine, Self-Care Clinical Impression: Chronic low back pain Condition: Good Instructions: Safe Use of Narcotics (ED) Referrals: Umu Hill DO [Primary Care Provider] - As per Instructions Prescriptions: oxyCODONE ORAL SOLUTION [Roxicodone Intensol] 20 mg PO TID PRN 3 Days bottle PRN Reason: Pain, Moderate
[2017-12-15] MEDS: oxyCODONE IR 5 MG TAB PO ONE (22:02)
== END 2017-12-15 22:04 | disposition home or self-care (01) ==
DX: Z76.0 Encounter for issue of repeat prescription (principal); M54.9 Dorsalgia, unspecified

== ENCOUNTER 2017-12-31 21:33 | Emergency (ER) | payer BC, MEDICAID ==
[2017-12-31] MEDS ORDERED: LIDOCAINE 4%/MENTHOL 1% PATCH TD ONE (22:07)
[2017-12-31] MEDS ORDERED: DIAZEPAM 5 MG TAB PO ONE (22:07)
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
[2017-12-31 22:45] VITALS: BP 113/74
[2018-01-01] MEDS ORDERED: PATCH REMOVAL 1 EA PATCH TD SCH (21:00)
== END 2017-12-31 22:45 | disposition home or self-care (01) ==
DX: M54.6 Pain in thoracic spine (principal)

== ENCOUNTER 2018-01-04 18:51 | Emergency (ER) | payer BC, MEDICAID ==
[2018-01-04] MEDS ORDERED: NS 500 ML IV ONE (19:38)
[2018-01-04] MEDS ORDERED: PROMETHAZINE HCL 25 MG/ML INJ IVP ONE (19:38)
[2018-01-04] MEDS ORDERED: ONDANSETRON 4 MG/2 ML VIAL IVP ONE (19:38)
[2018-01-04] MEDS ORDERED: HYDROmorphONE/DILAUDID 2 MG/ML INJ IVP ONE ×2 (19:38→21:42)
--- NOTE | 2018-01-04 19:44 | EDPHY ---
H & P Time Seen by Provider: 01/04/18 19:20 HPI/ROS: HPI Abdominal pain. 22-year-old female by private vehicle with her boyfriend. This patient has a complicated past medical and surgical history. Please see below. She presents the emergency department stating that for the last 3 days she has had nausea, particularly after eating fatty foods. She has not had vomiting but states that she has had dry heaving. She reports that today and more so this evening she has developed worsening left upper quadrant abdominal pain. This is described as burning and sharp. She denies any bloody or melenic stool. No diarrhea. ROS: Constitutional: No fever, no chills. No weakness. Eyes: No discharge. No changes in vision. ENT: No sore throat. No nasal congestion or rhinorrhea. Respiratory: No cough. No shortness of breath. Cardiac: No chest pain, no palpitations. Gastrointestinal: As above. Genitourinary: No hematuria. No dysuria or increased frequency with urination. Musculoskeletal: No back pain. No neck pain. No myalgias or arthralgias. Skin: No rashes. Neurological: No headache. No focal weakness or altered sensation. Past medical history: Large intestine resection, ileostomy, intestinal pseudo- obstruction, J-tube and G-tube placement, gastroparesis, epilepsy, thoracic fracture with recent kyphoplasty. Chronic narcotic pain medication dependence. Social history: Physical Exam: General Appearance: Alert, she appears anxious but not in distress. This patient is responding to questions appropriately and in full sentences. This patient appears well-hydrated and well-nourished. Eyes: Pupils equal and round no pallor or injection. No lid edema, erythema or injection. Respiratory: There are no retractions, lungs are clear to auscultation with good air movement bilaterally. Cardiovascular: Regular rate and rhythm. No murmur. Gastrointestinal: Multiple mid abdominal surgical scars all appear well healed and without evidence of infection. Abdomen is soft with vague left upper quadrant tenderness on palpation, no masses, bowel sounds normal. No focal tenderness at McBurney's point. No Zambrano sign. Neurological: Motor sensory function is grossly intact. Cranial nerves are normal. Gait is normal. Skin: Warm and dry, no rashes. Musculoskeletal: Neck is supple and nontender. Extremities are symmetrical. All joints range without pain or impingement. Psychiatric: No agitation. No depression. Database: EKG: Imaging: CT scan of abdomen and pelvis with IV contrast: Moderate stool noted in the cecum. No evidence of obstructive process or other acute pathology. Results were discussed with staff radiologist Dr. Shashank Wright. Procedures: Emergency department course: Triage vital signs reviewed and are normal. IV was placed. She is requesting pain medication is and antiemetics. She will be given 0.5 mg of IV hydromorphone initially as well as 6.25 mg of IV Phenergan and 4 mg of IV Zofran. She will be started on IV normal saline with 500 cc to be given over the next hour initially. CT imaging will be obtained to evaluate for obstruction or other surgical process. She consents to workup. The patient received a 2nd dose of IV hydromorphone at 0.5 mg for pain control. 10:20 p.m., the patient was re-evaluated. She is resting comfortably at this time. She is texting on her iPhone. Her boyfriend is present in the room. Repeat abdominal exam she is soft, nontender nondistended. Results of her emergency department workup and CT scan discussed with her and her boyfriend. She feels comfortable going home at this time and I feel she is safe for discharge. Follow-up and return to emergency department precautions have been reviewed with her. All of her questions were answered. She was discharged from the emergency department in good condition with her boyfriend who is driving. Differential Diagnosis: The differential diagnosis on this patient includes but is not limited to gastritis, bowel obstruction. Appendicitis, cholecystitis unlikely. This represents a partial list of diagnoses considered. These considerations are based on history, physical exam, past history, reassessment and diagnostic testing. Smoking Status: Never smoked Constitutional: Initial Vital Signs Temperature (C) 36.7 C 01/04/18 18:53 Heart Rate 77 01/04/18 18:53 Respiratory Rate 16 01/04/18 18:53 Blood Pressure 107/79 01/04/18 18:53 O2 Sat (%) 97 01/04/18 18:53 O2 Delivery Mode Room Air Allergies/Adverse Reactions: milk Allergy (Verified 12/31/17 21:35) mustard Allergy (Verified 12/31/17 21:35) Home Medications: Medication Instructions Recorded lamoTRIgine [LamICTAL 100 MG (*)] 50 mg PO BID 12/03/16 oxyCODONE ORAL SOLUTION 20 mg PO Q6 PRN 11/19/17 Multivitamins 11/20/17 oxyCODONE ORAL SOLUTION 20 mg PO Q6 5 Days bottle 11/23/17 [Roxicodone Intensol] oxyCODONE ORAL SOLUTION 20 mg PO TID PRN 3 Days bottle 12/15/17 [Roxicodone Intensol] Diazepam [Valium 5 MG (*)] 5 mg PO BID PRN #4 tab 12/31/17 Medical Decision Making - Diagnostics Imaging Results: Imaging Impressions Abdomen CT 01/04/18 19:39 Impression: 1. No bowel obstruction, pneumoperitoneum, or definite abscess. 2. Multiple prior surgeries without bowel obstruction. 3. Small amount of free fluid in the pelvis without definite adnexal masses. 4. No evidence of source for left upper quadrant abdominal pain. 5. Limited due to lack of oral contrast. Findings and recommendations discussed with emergency department physician, Sary Arguello MD at 2144 hours on January 04, 2018. Final report concurs with initial preliminary interpretation. - Data Points Laboratory Results: Laboratory Results 01/04/18 20:32 01/04/18 20:32 01/04/18 01/04/18 01/04/18 20:32 20:32 20:32 WBC 6.39 10^3/uL 10^3/uL (3.80-9.50) RBC 4.91 10^6/uL 10^6/uL (4.18-5.33) Hgb 14.9 g/dL g/dL (12.6-16.3) Hct 44.8 % % (38.0-47.0) MCV 91.2 fL fL (81.5-99.8) MCH 30.3 pg pg (27.9-34.1) MCHC 33.3 g/dL g/dL (32.4-36.7) RDW 12.5 % % (11.5-15.2) Plt Count 425 10^3/uL H 10^3/uL (150-400) MPV 8.4 fL L fL (8.7-11.7) Neut % (Auto) 58.7 % % (39.3-74.2) Lymph % (Auto) 31.5 % % (15.0-45.0) [place] % (Auto) 8.5 % % (4.5-13.0) Eos % (Auto) 0.3 % L % (0.6-7.6) Baso % (Auto) 0.5 % % (0.3-1.7) Nucleat RBC Rel Count 0.0 % % (0.0-0.2) Absolute Neuts (auto) 3.76 10^3/uL 10^3/uL (1.70-6.50) Absolute Lymphs (auto) 2.01 10^3/uL 10^3/uL (1.00-3.00) Absolute Monos (auto) 0.54 10^3/uL 10^3/uL (0.30-0.80) Absolute Eos (auto) 0.02 10^3/uL L 10^3/uL (0.03-0.40) Absolute Basos (auto) 0.03 10^3/uL 10^3/uL (0.02-0.10) Absolute Nucleated RBC 0.00 10^3/uL 10^3/uL (0-0.01) Immature Gran % 0.5 % % (0.0-1.1) Immature Gran # 0.03 10^3/uL 10^3/uL (0.00-0.10) Sodium 140 mEq/L mEq/L (135-145) Potassium 4.1 mEq/L mEq/L (3.3-5.0) Chloride 104 mEq/L mEq/L (97-110) Carbon Dioxide 21 mEq/l L mEq/l (22-31) Anion Gap 15 mEq/L H mEq/L (6-14) BUN 10 mg/dL mg/dL (7-23) Creatinine 0.6 mg/dL mg/dL (0.6-1.0) Estimated GFR > 60 Glucose 65 mg/dL L mg/dL (70-100) Calcium 9.9 mg/dL mg/dL (8.5-10.4) Total Bilirubin 0.2 mg/dL mg/dL (0.1-1.4) Conjugated Bilirubin 0.2 mg/dL mg/dL (0.0-0.5) Unconjugated Bilirubin 0.0 mg/dL mg/dL (0.0-1.1) AST 23 IU/L IU/L (14-46) ALT 14 IU/L IU/L (9-52) Alkaline Phosphatase 167 IU/L H IU/L (38-126) Total Protein 8.2 g/dL g/dL (6.3-8.2) Albumin 4.8 g/dL g/dL (3.5-5.0) Lipase 143 IU/L IU/L (23-300) Beta HCG, Qual NEGATIVE Medications Given: Discontinued Medications Hydromorphone HCl (Dilaudid) 0.5 mg IVP EDNOW ONE Stop: 01/04/18 19:39 Last Admin: 01/04/18 20:38 Dose: 0.5 mg Hydromorphone HCl (Dilaudid) 0.5 mg IVP EDNOW ONE Stop: 01/04/18 21:43 Last Admin: 01/04/18 21:44 Dose: 0.5 mg Sodium Chloride (Ns) 500 mls @ 0 mls/hr IV EDNOW ONE; Wide Open PRN Reason: Protocol Stop: 01/04/18 19:39 Last Admin: 01/04/18 20:38 Dose: 500 mls Ondansetron HCl (Zofran) 4 mg IVP EDNOW ONE Stop: 01/04/18 19:39 Last Admin: 01/04/18 20:38 Dose: 4 mg Promethazine HCl (Phenergan) 6.25 mg IVP EDNOW ONE Stop: 01/04/18 19:39 Last Admin: 01/04/18 20:38 Dose: 6.25 mg Departure - Departure Disposition: Home, Routine, Self-Care Clinical Impression: Abdominal pain, Nausea Condition: Good Instructions: Acute Abdominal Pain (ED) Additional Instructions: Read and follow provided instructions. Follow-up with your primary care physician or registered dietetic technician in 1-2 days for re-evaluation as discussed. Continue taking your medication as prescribed. Return to the emergency department for worsening abdominal pain, vomiting, fever , blood in your stool or other serious concerns. Referrals: Umu Hill DO [Primary Care Provider] - As per Instructions
[2018-01-04 20:43] LABS: PLATELET COUNT 425 10^3/uL (150-400)
[2018-01-04] MEDS ORDERED: IOPAMIDOL (ISOVUE-300) 100 ML BTL ONE (20:59)
[2018-01-04] MEDS ORDERED: HYDROmorphONE/DILAUDID 1 MG/ML INJ ONE (21:39)
[2018-01-04 22:16] VITALS: BP 93/57
== END 2018-01-04 22:31 | disposition home or self-care (01) ==
DX: R10.12 Left upper quadrant pain (principal); R11.2 Nausea with vomiting, unspecified; Z90.49 Acquired absence of other specified parts of digestive tract; Z93.2 Ileostomy status
CPT/HCPCS: 96374; J1170; J2405; J2550; Q9967

== ENCOUNTER 2018-01-05 16:28 | Emergency (ER) | payer BC, MEDICAID ==
--- NOTE | 2018-01-05 17:12 | EDPHY ---
HPI/HX/ROS/PE/MDM Narrative: CHIEF COMPLAINT: Abdominal pain HPI: This patient is a 22 year old female with complex past medical and surgical history including gastroparesis, large intestine resection, ileostomy. She was evaluated yesterday in this emergency department for abdominal pain. Today, she is feeling worse and complains of generalized abdominal pain, left greater than right, with associated nausea. She endorses associated fever, chills, and weakness. She has been unable to keep down foods or liquids. She last measured her temperature at 102 degrees Fahrenheit a few hours ago and took Tylenol for relief. She endorses dysuria. She denies chest pain, shortness of breath, syncope, or other associated symptoms. Of note, the patient has chronic narcotic pain medication dependence and is well -known to this emergency department with 8 prior visits in the past two months. REVIEW OF SYSTEMS: Aside from elements discussed in the HPI, a comprehensive 10-point review of systems was reviewed and is negative. PMH: Large intestine resection, ileostomy, intestinal pseudo-obstruction, J- tube and G-tube placement, gastroparesis, epilepsy, thoracic fracture with recent kyphoplasty. Chronic narcotic pain medication dependence. Reviewed prior medical records including emergency department visit 01/04/18 for similar symptoms. SOCIAL HISTORY: Friend at bedside. Lives in [place]. Student. PHYSICAL EXAM: General:Patient is alert, in no acute distress. ENT:Eyes are normal to inspection. ENT inspection normal. Neck: Normal inspection. Full range of motion. Respiratory:No respiratory distress. Breath sounds normal bilaterally. Cardiovascular: Regular rate and rhythm. Strong peripheral pulses. Normal cap refill. Abdomen: Diffuse abdominal tenderness. There are no peritoneal signs. There are normal bowel sounds. Back: Normal to inspection. No tenderness to palpation. Skin: Normal color. No rash. Warm and dry. Extremities: Normal appearance. Full range of motion. Neuro: Oriented x3. Normal motor function. Normal sensory function. ED Course: This patient is a 22 year old female with history of gastroparesis, large intestine resection, ileostomy. She has associated chronic narcotic pain medication dependence and has requested pain medication. I discussed the policy for chronic pain and narcotic management in the emergency department. The patient is aware of this and wishes primarily to control her nausea here today. She states Phenergan has worked better for her than Zofran in the past. IV established. Plan for labs including CBC, chemistries, lipase, UA. Plan to administer 12.5mg IV Phenergan, 1L IV NS for nausea relief. Touched base with Dr. Yao who is patient's surgeon and is very familiar with her. He agrees that patient should likely try to avoid further imaging for this type of complaint. Reviewed patient's CT from yesterday evening in this emergency department. No evidence of obstructive process or other acute pathology at that time. Discussed this with the patient, and she agrees that we will not repeat CT abdomen/pelvis tonight. UA negative for UTI. Reassessed patient. She is feeling better following medication administration and is tolerating fluids by mouth. Discussed laboratory results. Plan to discharge home in good condition. Follow up and return precautions discussed. She is comfortable with this plan. MDM: This patient presents with exacerbation of chronic abdominal pain. She was seen in the ED for the same symptoms yesterday with negative workup including negative CTAP. Review of her chart indicates 9 visits to our ED in the last 1- 2 months, and KAYLA notes additional ED visits to the [facility] within that time frame as well. The patient has a history of drug-seeking behavior in the past and I am concerned that this may represent a component of her repeat visits. I have declined offering her additional narcotic medication but have treated her with fluids and anti-emetics. - Data Points Laboratory Results: Laboratory Results 01/05/18 17:30 01/05/18 17:30 01/05/18 01/05/18 01/05/18 18:28 17:30 17:30 WBC 6.87 10^3/uL 10^3/uL (3.80-9.50) RBC 4.70 10^6/uL 10^6/uL (4.18-5.33) Hgb 14.3 g/dL g/dL (12.6-16.3) Hct 42.7 % % (38.0-47.0) MCV 90.9 fL fL (81.5-99.8) MCH 30.4 pg pg (27.9-34.1) MCHC 33.5 g/dL g/dL (32.4-36.7) RDW 12.4 % % (11.5-15.2) Plt Count 426 10^3/uL H 10^3/uL (150-400) MPV 8.3 fL L fL (8.7-11.7) Neut % (Auto) 70.5 % % (39.3-74.2) Lymph % (Auto) 21.0 % % (15.0-45.0) [place] % (Auto) 7.6 % % (4.5-13.0) Eos % (Auto) 0.0 % L % (0.6-7.6) Baso % (Auto) 0.3 % % (0.3-1.7) Nucleat RBC Rel Count 0.0 % % (0.0-0.2) Absolute Neuts (auto) 4.85 10^3/uL 10^3/uL (1.70-6.50) Absolute Lymphs (auto) 1.44 10^3/uL 10^3/uL (1.00-3.00) Absolute Monos (auto) 0.52 10^3/uL 10^3/uL (0.30-0.80) Absolute Eos (auto) 0.00 10^3/uL L 10^3/uL (0.03-0.40) Absolute Basos (auto) 0.02 10^3/uL 10^3/uL (0.02-0.10) Absolute Nucleated RBC 0.00 10^3/uL 10^3/uL (0-0.01) Immature Gran % 0.6 % % (0.0-1.1) Immature Gran # 0.04 10^3/uL 10^3/uL (0.00-0.10) Sodium 142 mEq/L mEq/L (135-145) Potassium 3.7 mEq/L mEq/L (3.3-5.0) Chloride 107 mEq/L mEq/L (97-110) Carbon Dioxide 24 mEq/l mEq/l (22-31) Anion Gap 11 mEq/L mEq/L (6-14) BUN 10 mg/dL mg/dL (7-23) Creatinine 0.5 mg/dL L mg/dL (0.6-1.0) Estimated GFR > 60 Glucose 63 mg/dL L mg/dL (70-100) Calcium 9.7 mg/dL mg/dL (8.5-10.4) Lipase 316 IU/L H IU/L (23-300) Urine Color YELLOW Urine Appearance HAZY Urine pH 5.0 (5.0-7.5) Ur Specific [place] 1.029 (1.002-1.030) Urine Protein 2+ H (NEGATIVE) Urine Ketones NEGATIVE (NEGATIVE) Urine Blood NEGATIVE (NEGATIVE) Urine Nitrate NEGATIVE (NEGATIVE) Urine Bilirubin NEGATIVE (NEGATIVE) Urine Urobilinogen NEGATIVE EU EU (0.2-1.0) Ur Leukocyte Esterase NEGATIVE (NEGATIVE) Urine RBC 1-3 /hpf /hpf (0-3) Urine WBC 1-3 /hpf /hpf (0-3) Ur Epithelial Cells TRACE /lpf /lpf (NONE-1+) Urine Mucus 4+ /lpf H /lpf (NONE-1+) Urine Glucose 2+ H (NEGATIVE) Medications Given: Discontinued Medications Sodium Chloride (Ns) 1,000 mls @ 0 mls/hr IV EDNOW ONE; Wide Open PRN Reason: Protocol Stop: 01/05/18 17:14 Last Admin: 01/05/18 17:39 Dose: 1,000 mls Promethazine HCl (Phenergan) 12.5 mg IVP EDNOW ONE Stop: 01/05/18 17:14 Last Admin: 01/05/18 17:39 Dose: 12.5 mg General Time Seen by Provider: 01/05/18 17:01 Initial Vital Signs: Initial Vital Signs Temperature (C) 36.3 C 01/05/18 16:35 Heart Rate 83 01/05/18 16:35 Respiratory Rate 18 01/05/18 16:35 Blood Pressure 112/73 01/05/18 16:35 O2 Sat (%) 96 01/05/18 16:35 O2 Delivery Mode Room Air Allergies/Adverse Reactions: milk Allergy (Verified 01/05/18 16:35) mustard Allergy (Verified 01/05/18 16:35) Home Medications: Medication Instructions Recorded lamoTRIgine [LamICTAL 100 MG (*)] 50 mg PO BID 12/03/16 oxyCODONE ORAL SOLUTION 20 mg PO Q6 PRN 11/19/17 Multivitamins 11/20/17 oxyCODONE ORAL SOLUTION 20 mg PO Q6 5 Days bottle 11/23/17 [Roxicodone Intensol] oxyCODONE ORAL SOLUTION 20 mg PO TID PRN 3 Days bottle 12/15/17 [Roxicodone Intensol] Diazepam [Valium 5 MG (*)] 5 mg PO BID PRN #4 tab 12/31/17 Departure - Departure Disposition: Home, Routine, Self-Care Clinical Impression: Chronic abdominal pain, Vomiting Condition: Good Instructions: Acute Nausea and Vomiting (ED), Abdominal Pain (ED) Additional Instructions: Follow up with your primary care provider. Return for worsening pain, uncontrollable vomiting, fever, or other worsening of condition. Referrals: Umu Hill DO [Primary Care Provider] - As per Instructions Report Scribed for: Alex Caicedo Report Scribed by: Lucia Busby Date of Report: 01/05/18 Time of Report: 18:09 Physician Review and Approval Statement: Portions of this note were transcribed by an ED scribe. I personally performed the history, physical exam, and medical decision making; and confirm the accuracy of the information in the transcribed note.
[2018-01-05] MEDS ORDERED: NS 1,000 ML IV ONE (17:13)
[2018-01-05] MEDS ORDERED: PROMETHAZINE HCL 25 MG/ML INJ IVP ONE (17:13)
[2018-01-05 17:37] LABS: PLATELET COUNT 426 10^3/uL (150-400)
[2018-01-05 20:02] VITALS: BP 101/68
--- NOTE | 2018-01-06 09:50 | ASMTCMCOM ---
CM Note CM Note Notes: See ER report for details regarding patient's complex medical/surgical history and frequent ED visits. Patient has visited this ED 10 times this year. I met with patient after 5 PM to check in with her regarding her PCP and pain management team. Patient told me she tried to get in with her providers but has not been able to get an appointment. Patient tells me she is concerned about being perceived as a "drug seeker". I have explained to her that the ED is not set up to manage chronic pain/illness and that we want to assure she has the proper follow up and management so she can avoid "frustrating" visits to the ED. Patient confirms that Umu Hill with [facility] is her PCP, and that she also sees a pain specialist, Roxanne Patton NP (Rita) at [facility]. I told patient that I would reach out to Dr. Hill in the morning to see if I could help get her in for a ED follow up visit. Patient is agreeable to this plan. This morning (01/06/18) I have contacted Dr. Hill's Ground Intelligence Officer, Carie Brar RN #[id number] who is very famililiar with patient. Dr. Hill is not in the office today but Carie will follow up with her and Roxanne sweet patient's frequent ED visits. Carie confirms that patient's last appointment with Dr. Hill was on 12/11/17. Patient also met with "Poornima" (pain management) on 12/17/17 and again on 12/22/17. OF NOTE: Patient was scheduled to see Poornima for pain management yesterday at 1000, but patient CANCELLED this appointment and presented to this ED later that afternoon (01/05/18). CM will follow and attempt to coordinate care for this complex patient. Date Signed: 01/06/2018 09:49 AM Electronically Signed By:Anna Knowles RN
--- NOTE | 2018-01-06 11:22 | ASMTCMCOM ---
CM Note CM Note Notes: CM note continued: ML with Roxanne NAIDU at [facility] re patient ER visits and follow up pain management Date Signed: 01/06/2018 11:22 AM Electronically Signed By:Anna Knowles RN
== END 2018-01-05 20:02 | disposition home or self-care (01) ==
DX: R10.12 Left upper quadrant pain (principal); Z90.49 Acquired absence of other specified parts of digestive tract; Z93.2 Ileostomy status
CPT/HCPCS: 96374; J2550

== ENCOUNTER 2018-01-07 18:18 | Emergency (ER) | payer BC, MEDICAID ==
[2018-01-07] MEDS ORDERED: NS 1,000 ML IV ONE ×2 (18:45)
[2018-01-07] MEDS ORDERED: PROMETHAZINE HCL 25 MG/ML INJ IVP ONE ×2 (18:45→20:13)
--- NOTE | 2018-01-07 18:47 | EDPHY ---
H & P Time Seen by Provider: 01/07/18 18:33 HPI/ROS: Chief complaint. Dehydration, nausea, syncope HPI. 22-year-old female presents emergency department with 1 week nausea. She has dry sees but does not really vomit. She is dizzy and lightheaded especially with standing. She had a syncopal episode on standing earlier today without injury. 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 Decreased urination and dark urine. No chest pain or shortness of breath. Some mid abdominal pain that has been bothering her. The patient has been seen December 31, January 04, January 05. She has had a nonacute abdominal CT on 01/04 ROS 10 systems were reviewed and negative with the exception of the elements mentioned in the history of present illness Past Medical/Surgical History: Past medical history is significant for colectomy with ileostomy get stroke paresis, epilepsy, thoracic fracture Social History: Single, nonsmoker, no alcohol Smoking Status: Never smoked Physical Exam: General Appearance: Alert well-developed female mild distress vital signs significant for heart rate 104 blood pressure 85/62 Eyes: Pupils equal and round no pallor or injection. ENT, mucous membranes are dry Respiratory: There are no retractions, lungs are clear to auscultation. Cardiovascular: Regular rate and rhythm. Gastrointestinal: Abdomen shows multiple well-healed surgical scars. Normal bowel sounds. Mild tenderness in the periumbilical area. No evidence for umbilical hernia Neurological: Awake and alert, sensory and motor exams grossly normal. Skin: Warm and dry, no rashes. Musculoskeletal: Neck is supple nontender. Extremities symmetrical, full range of motion. Psychiatric: Patient is oriented X 3, there is no agitation. Constitutional: Initial Vital Signs Temperature (C) 36.7 C 01/07/18 18:24 Heart Rate 104 H 01/07/18 18:24 Respiratory Rate 18 01/07/18 18:24 Blood Pressure 85/62 L 01/07/18 18:24 O2 Sat (%) 97 01/07/18 18:24 O2 Delivery Mode Room Air Allergies/Adverse Reactions: milk Allergy (Verified 01/05/18 16:35) mustard Allergy (Verified 01/05/18 16:35) Home Medications: Medication Instructions Recorded lamoTRIgine [LamICTAL 100 MG (*)] 50 mg PO BID 12/03/16 oxyCODONE ORAL SOLUTION 20 mg PO Q6 PRN 11/19/17 Multivitamins 11/20/17 oxyCODONE ORAL SOLUTION 20 mg PO Q6 5 Days bottle 11/23/17 [Roxicodone Intensol] oxyCODONE ORAL SOLUTION 20 mg PO TID PRN 3 Days bottle 12/15/17 [Roxicodone Intensol] Diazepam [Valium 5 MG (*)] 5 mg PO BID PRN #4 tab 12/31/17 Promethazine HCl [Phenergan 25mg 25 mg PO Q4-6PRN PRN #10 tab 01/07/18 (*)] Medical Decision Making Procedures: IV normal saline with initial target of 2 L. Phenergan IV ED Course/Re-evaluation: Re-evaluation at 8:00 p.m. And patient is stable. Continues to complain of mild nausea. Repeat Phenergan is given 8:50 p.m. patient is taking oral ice chips. She and I discussed the recent imaging studies and laboratory evaluation. We discussed treatment plan including criteria for return importance of follow-up further evaluation. She expresses understanding and agreement Differential Diagnosis: Patient has had decreased oral intake. She has had multiple recent visits with imaging of her abdomen which shows no obstruction. I considered electrolyte abnormalities. She may have a viral syndrome causing the nausea. There has been no vomiting in the emergency department - Data Points Laboratory Results: Laboratory Results 01/07/18 19:00 01/07/18 19:00 01/07/18 01/07/18 01/07/18 19:00 19:00 19:00 WBC 7.62 10^3/uL 10^3/uL (3.80-9.50) RBC 4.60 10^6/uL 10^6/uL (4.18-5.33) Hgb 14.1 g/dL g/dL (12.6-16.3) Hct 42.2 % % (38.0-47.0) MCV 91.7 fL fL (81.5-99.8) MCH 30.7 pg pg (27.9-34.1) MCHC 33.4 g/dL g/dL (32.4-36.7) RDW 12.2 % % (11.5-15.2) Plt Count 406 10^3/uL H 10^3/uL (150-400) MPV 8.5 fL L fL (8.7-11.7) Neut % (Auto) 62.0 % % (39.3-74.2) Lymph % (Auto) 30.4 % % (15.0-45.0) [place] % (Auto) 6.3 % % (4.5-13.0) Eos % (Auto) 0.1 % L % (0.6-7.6) Baso % (Auto) 0.5 % % (0.3-1.7) Nucleat RBC Rel Count 0.0 % % (0.0-0.2) Absolute Neuts (auto) 4.72 10^3/uL 10^3/uL (1.70-6.50) Absolute Lymphs (auto) 2.32 10^3/uL 10^3/uL (1.00-3.00) Absolute Monos (auto) 0.48 10^3/uL 10^3/uL (0.30-0.80) Absolute Eos (auto) 0.01 10^3/uL L 10^3/uL (0.03-0.40) Absolute Basos (auto) 0.04 10^3/uL 10^3/uL (0.02-0.10) Absolute Nucleated RBC 0.00 10^3/uL 10^3/uL (0-0.01) Immature Gran % 0.7 % % (0.0-1.1) Immature Gran # 0.05 10^3/uL 10^3/uL (0.00-0.10) Sodium 143 mEq/L mEq/L (135-145) Potassium 3.8 mEq/L mEq/L (3.3-5.0) Chloride 107 mEq/L mEq/L (97-110) Carbon Dioxide 24 mEq/l mEq/l (22-31) Anion Gap 12 mEq/L mEq/L (6-14) BUN 16 mg/dL mg/dL (7-23) Creatinine 0.6 mg/dL mg/dL (0.6-1.0) Estimated GFR > 60 Glucose 85 mg/dL mg/dL (70-100) Calcium 9.8 mg/dL mg/dL (8.5-10.4) Lipase 245 IU/L IU/L (23-300) Beta HCG, Qual NEGATIVE Medications Given: Discontinued Medications Sodium Chloride (Ns) 1,000 mls @ 0 mls/hr IV EDNOW ONE; Wide Open PRN Reason: Protocol Stop: 01/07/18 18:46 Last Admin: 01/07/18 19:00 Dose: 1,000 mls Sodium Chloride (Ns) 1,000 mls @ 0 mls/hr IV EDNOW ONE; Wide Open PRN Reason: Protocol Stop: 01/07/18 18:46 Last Admin: 01/07/18 19:00 Dose: 1,000 mls Promethazine HCl (Phenergan) 12.5 mg IVP EDNOW ONE Stop: 01/07/18 18:46 Last Admin: 01/07/18 19:00 Dose: 12.5 mg Promethazine HCl (Phenergan) 12.5 mg IVP EDNOW ONE Stop: 01/07/18 20:14 Last Admin: 01/07/18 20:16 Dose: 12.5 mg Departure - Departure Disposition: Home, Routine, Self-Care Clinical Impression: Dehydration, Nausea Condition: Good Instructions: Acute Nausea and Vomiting (ED) Additional Instructions: Frequent, small sips fluids. Gradual diet advancement. Phenergan every 4-6 hours as needed for nausea and vomiting. Return for worsening symptoms Re-evaluation by your physician in the next 1-2 days without fail Referrals: Umu Hill DO [Primary Care Provider] - 1-2 days without fail Prescriptions: Promethazine HCl [Phenergan 25mg (*)] 25 mg PO Q4-6PRN PRN #10 tab PRN Reason: Nausea/Vomiting, Use 1st
[2018-01-07 19:13] LABS: PLATELET COUNT 406 10^3/uL (150-400)
[2018-01-07] MEDS ORDERED: PROMETHAZINE 25 MG PREPACK #4 BTL TAKEHOME ONE (21:00)
[2018-01-07] MEDS ORDERED: DICYCLOMINE 10 MG CAP PO ONE (21:27)
[2018-01-07 21:52] VITALS: BP 100/72
== END 2018-01-07 21:51 | disposition home or self-care (01) ==
DX: E86.0 Dehydration (principal); R11.0 Nausea; R55 Syncope and collapse
CPT/HCPCS: 96374; J2550

== ENCOUNTER 2018-01-08 14:22 | Inpatient (IN) | payer BC, MEDICAID ==
[2018-01-08] MEDS ORDERED: NS 1,000 ML IV ONE (16:06)
[2018-01-08] MEDS ORDERED: PROMETHAZINE HCL 25 MG/ML INJ IVP ONE (16:06)
[2018-01-08] MEDS ORDERED: ONDANSETRON 4 MG/2 ML VIAL IVP ONE (16:06)
--- NOTE | 2018-01-08 16:49 | EDPHY ---
H & P Time Seen by Provider: 01/08/18 15:36 HPI/ROS: HPI Nausea and vomiting. 22-year-old female by private vehicle. She comes from the office of her primary care physician. This patient has been seen multiple times in the last several days at this emergency department alone. I received a call from her primary care physician, Dr. Dhaliwal, who told me that the patient was seen at [facility] earlier today and discharged and then seen at her office. Her primary care physician tells me that the patient has had IV fluids in her office and antiemetics but still is not able to keep crackers or fluids down. This patient has a history of chronic abdominal problems and has had multiple abdominal surgeries. Please see below for further details. When I saw her 2 days ago she presented with the same complaint. She had a full workup including a CT scan of her abdomen and pelvis with IV contrast which was unremarkable. Plan at this time will be to admit her to the hospitalist service for further evaluation, IV hydration, and antiemetics. ROS: Constitutional: No fever, no chills. No weakness. Eyes: No discharge. No changes in vision. ENT: No sore throat. No nasal congestion or rhinorrhea. Respiratory: No cough. No shortness of breath. Cardiac: No chest pain, no palpitations. Gastrointestinal: As above. Genitourinary: No hematuria. No dysuria or increased frequency with urination. Musculoskeletal: No back pain. No neck pain. No myalgias or arthralgias. Skin: No rashes. Neurological: No headache. No focal weakness or altered sensation. Past medical history: Partial colectomy, ileostomy, intestinal pseudo- obstruction, J-tube and G-tube placement, gastroparesis, epilepsy, thoracic fracture. Social history: She is currently here by herself. She does have a boyfriend. Nonsmoker. No alcohol. Physical Exam: General Appearance: Alert, she does not appear in distress. This patient is responding to questions appropriately and in full sentences. This patient appears well-hydrated and well-nourished. Eyes: Pupils equal and round no pallor or injection. No lid edema, erythema or injection. Respiratory: There are no retractions, lungs are clear to auscultation with good air movement bilaterally. Cardiovascular: Regular rate and rhythm. No murmur. Gastrointestinal: Abdomen is soft and without significant tenderness on palpation, multiple scars from previous surgeries noted, no masses, bowel sounds normal. No focal tenderness at McBurney's point. No Zambrano sign. Neurological: Motor sensory function is grossly intact. Cranial nerves are normal. Gait is normal. Skin: Warm and dry, no rashes. Musculoskeletal: Neck is supple and nontender. Extremities are symmetrical. All joints range without pain or impingement. Psychiatric: No agitation. No depression. Database: EKG: Imaging: Procedures: Emergency department course: Triage vital signs reviewed and are unremarkable. IV was placed. She was started on IV normal saline at a maintenance rate at 125 cc/hour. She has had 2 L prior to arrival. She was given 4 mg of IV Zofran and 6.25 mg of IV Phenergan. I discussed her case with the on-call hospitalist, Dr. Arguello. He accepts this patient for admission. Case management, Melyssa, will also see this patient in the emergency department. Her remaining emergency department course under my care has been uneventful. She was admitted to the hospitalist service in stable condition. Differential Diagnosis: The differential diagnosis on this patient includes but is not limited to gastroparesis, viral gastroenteritis. Bowel obstruction, other surgical etiology unlikely. This represents a partial list of diagnoses considered. These considerations are based on history, physical exam, past history, reassessment and diagnostic testing. Smoking Status: Never smoked Constitutional: Initial Vital Signs Temperature (C) 36.4 C 01/08/18 14:34 Heart Rate 71 01/08/18 14:34 Respiratory Rate 16 01/08/18 14:34 Blood Pressure 105/75 01/08/18 14:34 O2 Sat (%) 99 01/08/18 14:34 O2 Delivery Mode Room Air Allergies/Adverse Reactions: milk Allergy (Verified 01/08/18 14:34) mustard Allergy (Verified 01/08/18 14:34) Home Medications: Medication Instructions Recorded lamoTRIgine [LamICTAL 100 MG (*)] 50 mg PO BID 12/03/16 oxyCODONE ORAL SOLUTION 20 mg PO Q6 PRN 11/19/17 Multivitamins 11/20/17 oxyCODONE ORAL SOLUTION 20 mg PO Q6 5 Days bottle 11/23/17 [Roxicodone Intensol] oxyCODONE ORAL SOLUTION 20 mg PO TID PRN 3 Days bottle 12/15/17 [Roxicodone Intensol] Diazepam [Valium 5 MG (*)] 5 mg PO BID PRN #4 tab 12/31/17 Promethazine HCl [Phenergan 25mg 25 mg PO Q4-6PRN PRN #10 tab 01/07/18 (*)] Medical Decision Making - Data Points Medications Given: Discontinued Medications Sodium Chloride (Ns) 1,000 mls @ 0 mls/hr IV EDNOW ONE; Wide Open PRN Reason: Protocol Stop: 01/08/18 16:07 Last Admin: 01/08/18 16:18 Dose: 1,000 mls Ondansetron HCl (Zofran) 4 mg IVP EDNOW ONE Stop: 01/08/18 16:07 Last Admin: 01/08/18 16:24 Dose: 4 mg Promethazine HCl (Phenergan) 6.25 mg IVP EDNOW ONE Stop: 01/08/18 16:07 Last Admin: 01/08/18 16:24 Dose: 6.25 mg Departure - Departure Disposition: [facility] Clinical Impression: Intractable vomiting, Dehydration Condition: Fair Referrals: Umu Hill DO [Primary Care Provider] - As per Instructions
[2018-01-08 17:26] LABS: PLATELET COUNT 300 10^3/uL (150-400)
[2018-01-08] MEDS ORDERED: LORazepam 2 MG/ML INJ IVP PRN (17:57)
[2018-01-08] MEDS ORDERED: PROMETHAZINE HCL 25 MG TAB PO PRN ×2 (17:57→19:35)
[2018-01-08] MEDS ORDERED: ONDANSETRON DISINTEGRATING 4 MG TAB PO PRN (17:57)
[2018-01-08] MEDS ORDERED: IBUPROFEN 200 MG TAB PO PRN (17:57)
[2018-01-08] MEDS ORDERED: oxyCODONE IR 5 MG TAB PO PRN (17:57)
[2018-01-08] MEDS ORDERED: ACETAMINOPHEN 325 MG TAB PO PRN (17:57)
[2018-01-08] MEDS ORDERED: ONDANSETRON 4 MG/2 ML VIAL IVP PRN (17:57)
[2018-01-08] MEDS: HYDROmorphONE/DILAUDID 1 MG/ML INJ IVP PRN ×3 (18:12→22:54)
[2018-01-08] MEDS: lamoTRIgine 100 MG TAB PO SCH (21:03)
--- NOTE | 2018-01-09 00:45 | PDGENHP ---
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 She has been seen in our ED 4 out of the last [address] scsan of her abdomen with IV contrast and lab work up was unremarkable. She was given IVF and pain medications at these visits. She apparently went to [facility] ED this morning and then to her PCP's office who instructed her to come to ED for admission. ED physician spoke with PCP Dr Dhaliwal. Patient reports >3L/day output from ileostomy which is significantly up from 0.5-1L/day. She has also been unable to keep down any meds, including her oxycodone. She reports several days of low grade fevers. She also reports that several of her roommates have had similar symptoms but they have now recovered. She received a course of bactrim 1 month ago for UTI but no other antibiotics since then. She was previously on tube feeds but not any more. Of note, she reportedly had several compression fractures related to trauma from a seizure she had months ago. She had been in a brace but was cleared to not need this anymore. She plans to get a spinal fusion in the future. She has been working with a pain specialist for pain control. History Information - Allergies/Home Medication List Allergies/Adverse Reactions: milk Allergy (Verified 01/08/18 14:34) mustard Allergy (Verified 01/08/18 14:34) Home Medications: Multivitamins [Multivitamin (*)] 1 each PO DAILY 01/08/18 [Last Taken 01/05/18] Promethazine HCl [Phenergan 25mg (*)] 25 mg PO Q4H PRN 01/08/18 [Last Taken Unknown] lamoTRIgine [LamICTAL 100 MG (*)] 50 mg PO BID 01/08/18 [Last Taken 01/05/18] oxyCODONE ORAL SOLUTION [Roxicodone Intensol] 20 mg PO Q6H PRN 01/08/18 [Last Taken Unknown] I have personally reviewed and updated: family history, medical history, social history, surgical history - Past Medical History Additional medical history: Intestinal pseudoobstruction s/p colectomy and gastrectomy, SMA syndrome, median arcuate ligement syndrome, gastroparesis, vertebral compression fractures, seizure disorder - Surgical History Additional surgical history: total colectomy with continent ileostomy formation , gastrectomy with Chandler-en-Y gastrojejunostomy, median arcuate ligament release , SMA syndrome release, G and J tubes which are now removed - Family History Additional family history: VTE - Social History Smoking Status: Never smoked Alcohol Use: None Drug Use: None Additional social history: Lives with el and 2 other roommates, 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 [employer] Systems Review of Systems: ROS: 10pt was reviewed & negative except for what was stated in HPI & below Physical Exam Physical Exam: Temp Pulse Resp BP Pulse Ox 36.4 C 52 L 16 93/58 L 96 01/08/18 23:11 01/08/18 23:11 01/08/18 23:11 01/08/18 23:11 01/08/18 23:11 Constitutional: no apparent distress, not in pain, cachectic Eyes: PERRL, anicteric sclera, EOMI Ears, Nose, Mouth, Throat: hearing normal, ears appear normal, no oral mucosal ulcers, dry mucous membranes Cardiovascular: regular rate and rhythym, no murmur, rub, or gallop, No edema Respiratory: no respiratory distress, no rales or rhonchi, clear to auscultation Gastrointestinal: soft, non-tender abdomen, other (ileostomy site covered with gauze, mild erythema surrounding site), No guarding Genitourinary: no bladder fullness, no bladder tenderness Musculoskeletal: full muscle strength, no muscle tenderness, normal joint ROM, no joint effusions Neurologic: AAOx3 Psychiatric: interacting appropriately, not anxious, not encephalopathic, thought process linear Lab Data & Imaging Review 01/08/18 17:17 01/08/18 17:17 WBC 6.72 10^3/uL (3.80-9.50) 01/08/18 17:17 RBC 4.02 10^6/uL (4.18-5.33) L 01/08/18 17:17 Hgb 12.3 g/dL (12.6-16.3) L 01/08/18 17:17 Hct 36.5 % (38.0-47.0) L 01/08/18 17:17 MCV 90.8 fL (81.5-99.8) 01/08/18 17:17 MCH 30.6 pg (27.9-34.1) 01/08/18 17:17 MCHC 33.7 g/dL (32.4-36.7) 01/08/18 17:17 RDW 12.0 % (11.5-15.2) 01/08/18 17:17 Plt Count 300 10^3/uL (150-400) 01/08/18 17:17 MPV 8.6 fL (8.7-11.7) L 01/08/18 17:17 Neut % (Auto) 60.4 % (39.3-74.2) 01/08/18 17:17 Lymph % (Auto) 34.8 % (15.0-45.0) 01/08/18 17:17 [place] % (Auto) 3.7 % (4.5-13.0) L 01/08/18 17:17 Eos % (Auto) 0.3 % (0.6-7.6) L 01/08/18 17:17 Baso % (Auto) 0.4 % (0.3-1.7) 01/08/18 17:17 Nucleat RBC Rel Count 0.0 % (0.0-0.2) 01/08/18 17:17 Absolute Neuts (auto) 4.05 10^3/uL (1.70-6.50) 01/08/18 17:17 Absolute Lymphs (auto) 2.34 10^3/uL (1.00-3.00) 01/08/18 17:17 Absolute Monos (auto) 0.25 10^3/uL (0.30-0.80) L 01/08/18 17:17 Absolute Eos (auto) 0.02 10^3/uL (0.03-0.40) L 01/08/18 17:17 Absolute Basos (auto) 0.03 10^3/uL (0.02-0.10) 01/08/18 17:17 Absolute Nucleated RBC 0.00 10^3/uL (0-0.01) 01/08/18 17:17 Immature Gran % 0.4 % (0.0-1.1) 01/08/18 17:17 Immature Gran # 0.03 10^3/uL (0.00-0.10) 01/08/18 17:17 Sodium 140 mEq/L (135-145) 01/08/18 17:17 Potassium 3.7 mEq/L (3.3-5.0) 01/08/18 17:17 Chloride 110 mEq/L (97-110) 01/08/18 17:17 Carbon Dioxide 19 mEq/l (22-31) L 01/08/18 17:17 Anion Gap 11 mEq/L (6-14) 01/08/18 17:17 BUN 6 mg/dL (7-23) L 01/08/18 17:17 Creatinine 0.5 mg/dL (0.6-1.0) L 01/08/18 17:17 Estimated GFR > 60 01/08/18 17:17 Glucose 74 mg/dL (70-100) 01/08/18 17:17 Calcium 9.2 mg/dL (8.5-10.4) 01/08/18 17:17 Total Bilirubin 0.4 mg/dL (0.1-1.4) 01/08/18 17:17 Conjugated Bilirubin 0.1 mg/dL (0.0-0.5) 01/08/18 17:17 Unconjugated Bilirubin 0.3 mg/dL (0.0-1.1) 01/08/18 17:17 AST 21 IU/L (14-46) 01/08/18 17:17 ALT 22 IU/L (9-52) 01/08/18 17:17 Alkaline Phosphatase 149 IU/L (38-126) H 01/08/18 17:17 Total Protein 6.6 g/dL (6.3-8.2) 01/08/18 17:17 Albumin 3.8 g/dL (3.5-5.0) 01/08/18 17:17 Lipase 159 IU/L (23-300) 01/08/18 17:17 Assessment & Plan Assessment: 22yo F with complicated gastrointestinal history of 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 Plan: #Dehydration, high output ileostomy - Send GI PCR - IVF, monitor electrolytes - Consider palliative consult in AM for frequent re-admissions #Acute on chronic abdominal pain: Diffuse, benign abdomen. No clear etiology on recent CT. - IV pain and nausea meds until tolerating PO #Non-anion gap metabolic acidosis: - IVF as above, recheck in AM #Intestinal dysmotility: S/p a host of surgical interventions including total colectomy and gastrectomy. #SMA syndrome, median arcuate ligament syndrome: S/p surgical release with Dr Yao #Seizures disorder: Continue lamotrigine #Vertebral compression fractures: Chronic. Unclear circumstances. She is not in a brace anymore. Neurologically intact. Diet: regular VTE ppx: SCDs, ambulation Code: full Dispo: Admit under observation.
[2018-01-09] MEDS: NS 1,000 ML IV SCH ×3 (00:58→20:37)
[2018-01-09] MEDS: HYDROmorphONE/DILAUDID 1 MG/ML INJ IVP PRN ×3 (03:30→14:59)
[2018-01-09] MEDS: PROMETHAZINE HCL 25 MG/ML INJ IVP PRN ×3 (04:20→20:50)
[2018-01-09] MEDS: LORazepam 2 MG/ML INJ IVP PRN ×4 (05:33→20:38)
--- NOTE | 2018-01-09 08:32 | HOSPPROG ---
Hospitalist Progress Note Assessment/Plan: DIAGNOSES: #Dehydration, high output from ileostomy along with nausea vomiting - GI PCR is negative - IVF, antiemetics, monitor electrolytes #Acute on chronic abdominal pain: Diffuse, benign abdomen. No clear etiology on recent CT. - IV pain and nausea meds until tolerating PO #Non-anion gap metabolic acidosis: - IVF as above, recheck in AM #Intestinal dysmotility: S/p a host of surgical interventions including total colectomy and gastrectomy. #SMA syndrome, median arcuate ligament syndrome: S/p surgical release with Dr Yao #Seizures disorder: Stable here so far - Continue lamotrigine #Vertebral compression fractures: Chronic. Unclear circumstances. She is not in a brace anymore. Neurologically intact. SUBJECTIVE: Had prolonged episode of severe nausea this morning with some vomiting, continued high output from ileostomy OBJECTIVE Vitals reviewed: Stable so far without fever Exam: alert oriented skin warm dry color ok resps not labored lungs clear BSs heart regular abd soft nondistended nontender, bowel sounds present; liquid output from ileostomy limbs warm, no edema iv site ok Laboratory data: Stable metabolic panel with electrolytes GI pathogen panel negative Objective: Vital Signs Temp Pulse Resp BP Pulse Ox 36.7 C 77 14 106/69 97 01/09/18 07:15 01/09/18 07:15 01/09/18 07:15 01/09/18 07:15 01/09/18 07:15 Microbiology 01/09/18 04:39 Gastrointestinal Tract Panel (PCR) - Final Stool No Organism Detected Laboratory Results 01/09/18 05:13 01/09/18 05:13 01/08/18 01/09/18 01/10/18 06:59 06:59 06:59 Intake Total 193 Balance 193 ICD10 Worksheet Patient Problems: Problems Problem Status Onset Dehydration Acute Intractable vomiting Acute Abdominal abscess Acute Compression fracture of body of thoracic vertebra Acute Hypochloremia Acute Near syncope Acute Shortness of breath Acute
--- NOTE | 2018-01-09 09:44 | ASMTLACE ---
AMBER Acuity / Level of Answers: Yes Care: Did the patient have an inpatient admission? Comorbidities - select Answers: Opioid dependence all that apply / Chronic pain Other Notes: Chronic gastrointestina l hx; Seizure disorder # of Emergency department Answers: 12+ visits in the last 6 months Social determinants Answers: Mental health diagnosis (anxiety, depression, pers onality disorders, etc.) Score: 17 Date Signed: 01/09/2018 09:43 AM Electronically Signed By:Makenna Patricio
--- NOTE | 2018-01-09 09:45 | PDMN ---
Medical Necessity Medical necessity: MCG: M370 vomiting, dehydration M123: A-1 day: INPT for persistent vomiting --pt presenting with acute abd pain with high volume output from ileostomy-- PMH complicated GI -S/P total colectomy and gastrectomy, with ileostomy, intestinal dysmotility, SMA syndrome, Sz disorder, vertebral compression fxs., non anion gap metabolic acidosis, anticipate > 2 MN ongoing med nec care, further eval and tx. IVF, IV antiemetics, IV pain, status changed to INPT 01/09
[2018-01-09] MEDS: lamoTRIgine 100 MG TAB PO SCH ×2 (10:27→20:38)
--- NOTE | 2018-01-09 15:52 | ASMTCMCOM ---
CM Note CM Note Notes: Met with pt, she was admitted for a possible virus causing intractable vomiting and dehydration. She lives in an apt with her fiance and two other roomates that were also ill, although they have recovered. 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 She is [facility] with [facility] (PT) DC Plan: Home Care/ Family (PT) Date Signed: 01/09/2018 03:51 PM Electronically Signed By:Claudia Mccurdy RN
[2018-01-09] MEDS: oxyCODONE ORAL SOLUTION 10 MG/0.5 ML UDSYR PO PRN (17:46)
[2018-01-09] MEDS ORDERED: NS 1,000 ML IV ONE (18:43)
[2018-01-10] MEDS: oxyCODONE ORAL SOLUTION 10 MG/0.5 ML UDSYR PO PRN ×4 (00:04→19:24)
[2018-01-10] MEDS: LORazepam 2 MG/ML INJ IVP PRN ×3 (00:38→08:56)
[2018-01-10] MEDS: PROMETHAZINE HCL 25 MG/ML INJ IVP PRN ×3 (02:55→16:01)
[2018-01-10] MEDS: HYDROmorphONE/DILAUDID 1 MG/ML INJ IVP PRN ×5 (03:49→22:08)
[2018-01-10] MEDS: lamoTRIgine 100 MG TAB PO SCH ×2 (08:17→22:08)
--- NOTE | 2018-01-10 10:00 | HOSPPROG ---
Hospitalist Progress Note Assessment/Plan: DIAGNOSES: #Dehydration, high output from ileostomy along with nausea vomiting - GI PCR is negative - IVF, antiemetics, monitor electrolytes #Acute on chronic abdominal pain: Diffuse, benign abdomen. No clear etiology on recent CT. - IV pain and nausea meds until tolerating PO #Non-anion gap metabolic acidosis: - IVF as above, recheck in AM #Intestinal dysmotility: S/p a host of surgical interventions including total colectomy and gastrectomy. #SMA syndrome, median arcuate ligament syndrome: S/p surgical release with Dr Yao #Seizures disorder: Stable here so far - Continue lamotrigine #Vertebral compression fractures: Chronic. Unclear circumstances. She is not in a brace anymore. Neurologically intact. SUBJECTIVE: Still with a lot of nausea requiring multiple medicines for control, dry heaves this morning Ativan has been the most effective medicines so far also is getting some muscular spasm in her back particularly aggravated by vomiting episodes OBJECTIVE Vitals reviewed: Blood pressures are intermittently a bit low but overall stable without fever Exam: alert oriented skin warm dry color ok resps not labored lungs clear BSs heart regular abd not quite a soft today, nondistended some mild diffuse tenderness without rebound, bowel sounds present; liquid output from ileostomy limbs warm, no edema iv site ok Objective: Vital Signs Temp Pulse Resp BP Pulse Ox 37.2 C 60 14 133/92 H 97 01/10/18 08:00 01/10/18 08:00 01/10/18 08:00 01/10/18 08:00 01/10/18 08:00 Microbiology 01/09/18 04:39 Gastrointestinal Tract Panel (PCR) - Final Stool No Organism Detected Laboratory Results 01/09/18 05:13 01/09/18 05:13 01/09/18 01/10/18 01/11/18 06:59 06:59 06:59 Intake Total 1936 Balance 1936 ICD10 Worksheet Patient Problems: Problems Problem Status Onset Dehydration Acute Intractable vomiting Acute Abdominal abscess Acute Compression fracture of body of thoracic vertebra Acute Hypochloremia Acute Near syncope Acute Shortness of breath Acute
[2018-01-10] MEDS: LORazepam 2 MG/ML INJ IVP SCH ×3 (10:08→22:08)
[2018-01-10] MEDS: ONDANSETRON DISINTEGRATING 4 MG TAB PO SCH ×4 (10:08→22:08)
--- NOTE | 2018-01-10 18:12 | ASMTCMCOM ---
CM Note CM Note Notes: Reviewed chart regarding discharge plan of care, pt's progress. Pt to likely discharge Friday01/11/18 home with [facility] (PT services). Pt requesting to speak with Melyssa Sandra LCSW, Farm Owner Operator (pt worked with Melyssa during a prior visit). Melyssa met with pt for support and a brief conversation. Per Melyssa, pt denies additional needs. Pt was previously open with [facility] and agrees to accept pt again. CM will continue to follow. Discharge Plan: Home with [facility] Date Signed: 01/10/2018 06:11 PM Electronically Signed By:Ashleigh Jiménez RN
[2018-01-10] MEDS: NS 1,000 ML IV SCH (19:26)
[2018-01-11] MEDS: ONDANSETRON DISINTEGRATING 4 MG TAB PO SCH ×3 (02:00→09:54)
[2018-01-11] MEDS: oxyCODONE ORAL SOLUTION 10 MG/0.5 ML UDSYR PO PRN ×2 (02:00→11:15)
[2018-01-11] MEDS: HYDROmorphONE/DILAUDID 1 MG/ML INJ IVP PRN ×3 (02:00→13:52)
[2018-01-11] MEDS: NS 1,000 ML IV SCH (02:02)
[2018-01-11] MEDS: LORazepam 2 MG/ML INJ IVP SCH ×2 (04:16→09:54)
[2018-01-11 07:36] VITALS: BP 97/73
[2018-01-11] MEDS: lamoTRIgine 100 MG TAB PO SCH (09:53)
[2018-01-11] MEDS: PROMETHAZINE HCL 25 MG/ML INJ IVP PRN (11:18)
[2018-01-11] MEDS ORDERED: ONDANSETRON DISINTEGRATING 4 MG TAB PO SCH (13:10)
--- NOTE | 2018-01-11 13:33 | PDDCSUM ---
Discharge Summary Discharge Summary: Date of Admission: January 09, 2018 Date of Discharge: January 11, 2018 Discharge Diagnoses: Acute gastroenteritis, improved Acute on chronic abdominal pain, improved Intestinal dysmotility, status post multiple abdominal surgeries History of SMA syndrome/median arcuate ligament syndrome, status post surgical release Seizure disorder, stable Vertebral compression fractures, chronic Admission Diagnoses: Acute dehydration Acute on chronic abdominal pain Non anion gap metabolic acidosis Intestinal dysmotility, status post multiple abdominal surgeries SMA syndrome, median arcuate ligament syndrome-status post surgical release Seizure disorder Vertebral compression fractures, chronic Consultants: None Hospital Course: The patient is a 22-year-old female with history of multiple abdominal surgeries , chronic pain, intestinal dysmotility who was admitted for acute dehydration secondary to intractable nausea and vomiting, fevers, and high volume output in her ileostomy (3L/day). Her roommates had similar symptoms, but they had recovered. Patient was admitted and given IV fluid rehydratio, IV Phenergan for nausea control, and analgesics She felt better after a couple days and wanted to continue recovering at home. She was discharged home with resumption of home healthcare. She was concerned about adjusting her pain medication, but since she has a contract with a painter and grader cork through [facility], she is recommended to follow up with her provider the day after discharge as planned. Physical Exam: General: The patient is a thin female who is alert and in no acute distress. HEENT: normocephalic, extraocular movements intact, conjunctivae clear, no lesions on face. Mucous membranes moist. Neck: trachea midline, no visible masses, no external lesions. Abd: soft and nondistended. Ostomy in place. Musculoskeletal: Ambulatory. Neuro: cranial nerves II XII grossly intact. Intact gross motor and sensory function. Psych: appropriate mood/affect. Skin: No pallor. Condition: Fair. Discharged to: Home with home healthcare. Pertinent tests/labs/imaging: No imaging performed. Labs-normal BMP. Hemoglobin 12.3, stable. Medications: Please see med rec form. New meds-IM Phenergan as needed for nausea. Special instructions: Patient was recommended to return to emergency department if symptoms worsen. Advance diet as tolerated. Stay well hydrated ( drink Pedialyte or make electrolyte solution at home) Follow up: Follow up with PCP in 1 week. Follow up with painter and grader cork in 1 day. > 30 minutes of total time was spent on counseling and coordination of care for this patient's discharge.
--- NOTE | 2018-01-11 14:22 | ASMTDCNOTE ---
Case Management Discharge Discharge Order Complete? Answers: No Patient to Obtain Answers: Independently Medications Transportation Arranged Answers: Family/Friends Transport will Pick (Date 01/11/2018 02:00 PM & Time) Faxed Final Orders Answers: Yes Agency/Facility Transfer Answers: Yes Report Printed & Faxed to Receiving Agency Discharge Comments Notes: CM spoke with RN, patient to discharge home with a friend and restart with [facility]. Available orders sent via [employer]. CM available to follow if any further CM needs arise. Date Signed: 01/11/2018 02:21 PM Electronically Signed By:Shanda Chacon
--- NOTE | 2018-01-12 19:30 | PDIAF ---
- Diagnosis Diagnosis: viral gastroenteritis, history of bowel surgeries, chronic pain Code Status: Full Code - Medication Management Discharge Medications: Medications to Continue on Transfer Multivitamins [Multivitamin (*)] 1 each PO DAILY 01/08/18 [Last Taken 01/05/18] lamoTRIgine [LamICTAL 100 MG (*)] 50 mg PO BID 01/08/18 [Last Taken 01/05/18] oxyCODONE ORAL SOLUTION [Roxicodone Intensol] 20 mg PO Q6H PRN 01/08/18 [Last Taken Unknown] Promethazine HCl [Phenergan] 25 mg IM Q6H 4 Days #8 ml 01/11/18 [Last Taken Unknown] Discharge Medications: Refer to the Discharge Home Medication list for PRN reason. - Orders Services needed: Home Care, Registered Nurse, Master Business Office Director Home Care Face to Face: I certify that this patient was under my care and that I had the required [id number] encounter meeting the encounter requirements on the discharge day. My findings support the fact that the patient is homebound as defined in Home Care Face to Face Continued: CMS Chapter 7 Medicare Benefits Manual 30.1.1 , The condition of the patient is such that there exists a normal inability to leave home and consequently, leaving home would require a considerable and taxing effort. Isolation Type: None Diet Recommendation: no restrictions on diet Diet Texture: Regular Texture Diet - Follow Up Care Current Providers and Referrals: Umu Hill DO [Primary Care Provider] - follow up in 1 week Roxanne Alejandra PA [Physician Drop Wirer] - 1-2 days (Pain Management follow up )
== END 2018-01-11 14:04 | disposition home health service (06) | DRG 392 ==
LOC: F3E 17:24
PROVIDERS: ADMIT Internal Medicine; ATTEND Internal Medicine
DX: K52.9 Noninfective gastroenteritis and colitis, unspecified (principal); M48.50XA Collapsed vertebra, not elsewhere classified, site unspecified, initial encounter for fracture; E87.2 Acidosis; G89.29 Other chronic pain; K92.89 Other specified diseases of the digestive system; G40.909 Epilepsy, unspecified, not intractable, without status epilepticus; E86.0 Dehydration; Z93.2 Ileostomy status
CPT/HCPCS: 96374; G0378; J1170; J2060; J2405; J2550

== ENCOUNTER 2018-01-20 19:47 | Inpatient (IN) | payer BC, MEDICAID ==
[2018-01-20] MEDS ORDERED: NS 1,000 ML IV ONE (19:57)
[2018-01-20] MEDS ORDERED: ONDANSETRON 4 MG/2 ML VIAL IVP ONE (19:57)
--- NOTE | 2018-01-20 20:13 | EDPHY ---
H & P Stated Complaint: N/V, abd pain xfew days Time Seen by Provider: 01/20/18 19:51 HPI/ROS: CHIEF COMPLAINT: Abdominal pain, intractable nausea vomiting HISTORY OF PRESENT ILLNESS: 22-year-old female with extensive medical/surgical history including partial colectomy, ileostomy, intestinal pseudo-obstruction, gastroparesis, via private vehicle complaining of intractable nausea vomiting and abdominal pain for the past 3 days. Prior hospitalization for similar. Decreased urinary output. No back or flank pain. No fever or chills. Notes that her ileostomy is draining as usual. PRIMARY CARE PROVIDER: REVIEW OF SYSTEMS: 10 systems reviewed and negative with the exception of the elements mentioned in the history of present illness PAST MEDICAL & SURGICAL HISTORY: Chronic abdominal pain, partial colectomy, ileostomy, intestinal pseudo-obstruction, gastroparesis SOCIAL HISTORY: Nonsmoker PHYSICAL EXAM (Prior to examination, patient consented to physical exam, hands were washed and my usual and customary physical exam procedures followed) 1) GENERAL: Well-developed, well-nourished, alert and oriented. Appears to be in no acute distress. 2) HEAD: Normocephalic, atraumatic 3) HEENT: Pupils equal, round, reactive to light bilaterally. Sclera anicteric. Nasopharynx, oropharynx, clear, no lesions. Dry mucous membranes. 4) NECK: Full range of motion, no meningeal signs. 5) LUNGS: Clear auscultation bilaterally, no wheezes, no rhonchi, no retractions. 6) HEART: Regular rate and rhythm, no murmur, no heave, no gallop. 7) ABDOMEN: Tender to palpation all quadrants. Ileostomy patent. Negative peritoneal sign, 8) MUSCULOSKELETAL: Moving all extremities, no focal areas of tenderness, no obvious trauma. No peripheral edema or discoloration. 9) BACK: No CVA tenderness, no midline vertebral tenderness, no fluctuance, no step-off, no obvious trauma, no visual or palpable abnormality. 10) SKIN: No rash, no petechiae. 11) Psychiatric: Patient is oriented X 3, there is no agitation. DIFFERENTIAL DIAGNOSIS: My differential diagnosis includes, but is not limited to, acute appendicitis, acute cholecystitis, bowel obstruction, acute pancreatitis, ectopic , gastritis, acute on chronic abdominal pain - Personal History Current Tetanus/Diphtheria Vaccine: Yes Tetanus Vaccine Date: 2011 - Medical/Surgical History Hx Asthma: No Hx Chronic Respiratory Disease: No Hx Diabetes: No Hx Cardiac Disease: No Hx Renal Disease: No Hx Cirrhosis: No Hx Alcoholism: No Hx HIV/AIDS: No Hx Splenectomy or Spleen Trauma: No Other PMH: large intestine removed, [facility] 09/07 contINent illiostomy, intestinal pseudo obstruction, j tube placed, g tube placed, gastroparesis, epilepsy--. thoracic fx - Social History Smoking Status: Never smoked Constitutional: Initial Vital Signs Temperature (C) 36.4 C 01/20/18 19:53 Heart Rate 114 H 01/20/18 19:53 Respiratory Rate 16 01/20/18 19:53 Blood Pressure 108/76 01/20/18 19:53 O2 Sat (%) 97 01/20/18 19:53 O2 Delivery Mode Room Air Allergies/Adverse Reactions: milk Allergy (Verified 01/20/18 19:55) mustard Allergy (Verified 01/20/18 19:55) Home Medications: Medication Instructions Recorded Multivitamins [Multivitamin (*)] 1 each PO DAILY 01/08/18 lamoTRIgine [LamICTAL 100 MG (*)] 50 mg PO BID 01/08/18 oxyCODONE ORAL SOLUTION 20 mg PO Q6H PRN 01/08/18 [Roxicodone Intensol] Cholecalciferol Vit D3 [Vitamin D3 1,000 units PO DAILY 01/20/18 (*)] Herbals/Supplements -Info Only 1 ea PO DAILY 01/20/18 Promethazine HCl [Phenergan] 25 mg PO BID 01/20/18 Medical Decision Making ED Course/Re-evaluation: I reviewed the patient's old medical records including her normal HIDA scan from today. She also has multiple ER visits and recent hospital admission for acute exacerbation chronic abdominal pain. Will administer IV fluids, plan on more than likely admission as she notes prior history of admission for hydration , antiemetic administration when similar symptoms arise. Case discussed with secondary supervising physician Dr. Mao in the ER. Will hold on imaging at this time. Consultation with hospitalist Dr. Emmanuel Dhillon who will admit patient. - Data Points Laboratory Results: Laboratory Results 01/20/18 20:10 01/20/18 20:10 01/20/18 01/20/18 01/20/18 20:10 20:10 20:10 WBC 7.42 10^3/uL 10^3/uL (3.80-9.50) RBC 5.06 10^6/uL 10^6/uL (4.18-5.33) Hgb 15.4 g/dL g/dL (12.6-16.3) Hct 47.0 % % (38.0-47.0) MCV 92.9 fL fL (81.5-99.8) MCH 30.4 pg pg (27.9-34.1) MCHC 32.8 g/dL g/dL (32.4-36.7) RDW 12.4 % % (11.5-15.2) Plt Count 440 10^3/uL H 10^3/uL (150-400) MPV 8.9 fL fL (8.7-11.7) Neut % (Auto) 62.6 % % (39.3-74.2) Lymph % (Auto) 30.1 % % (15.0-45.0) Brooke % (Auto) 6.2 % % (4.5-13.0) Eos % (Auto) 0.3 % L % (0.6-7.6) Baso % (Auto) 0.4 % % (0.3-1.7) Nucleat RBC Rel Count 0.0 % % (0.0-0.2) Absolute Neuts (auto) 4.65 10^3/uL 10^3/uL (1.70-6.50) Absolute Lymphs (auto) 2.23 10^3/uL 10^3/uL (1.00-3.00) Absolute Monos (auto) 0.46 10^3/uL 10^3/uL (0.30-0.80) Absolute Eos (auto) 0.02 10^3/uL L 10^3/uL (0.03-0.40) Absolute Basos (auto) 0.03 10^3/uL 10^3/uL (0.02-0.10) Absolute Nucleated RBC 0.00 10^3/uL 10^3/uL (0-0.01) Immature Gran % 0.4 % % (0.0-1.1) Immature Gran # 0.03 10^3/uL 10^3/uL (0.00-0.10) Sodium 141 mEq/L mEq/L (135-145) Potassium 4.0 mEq/L mEq/L (3.3-5.0) Chloride 107 mEq/L mEq/L (97-110) Carbon Dioxide 23 mEq/l mEq/l (22-31) Anion Gap 11 mEq/L mEq/L (6-14) BUN 10 mg/dL mg/dL (7-23) Creatinine 0.6 mg/dL mg/dL (0.6-1.0) Estimated GFR > 60 Glucose 59 mg/dL L mg/dL (70-100) Calcium 10.2 mg/dL mg/dL (8.5-10.4) Total Bilirubin 0.3 mg/dL mg/dL (0.1-1.4) Conjugated Bilirubin 0.3 mg/dL mg/dL (0.0-0.5) Unconjugated Bilirubin 0.0 mg/dL mg/dL (0.0-1.1) AST 46 IU/L IU/L (14-46) ALT 25 IU/L IU/L (9-52) Alkaline Phosphatase 152 IU/L H IU/L (38-126) Total Protein 8.1 g/dL g/dL (6.3-8.2) Albumin 4.8 g/dL g/dL (3.5-5.0) Lipase 90 IU/L IU/L (23-300) Beta HCG, Qual NEGATIVE Medications Given: Promethazine HCl (Phenergan) 6.25 mg IVP ONCE ONE Stop: 01/20/18 21:14 Last Admin: 01/20/18 21:15 Dose: 6.25 mg Discontinued Medications Sodium Chloride (Ns) 1,000 mls @ 0 mls/hr IV ONCE ONE PRN Reason: Wide Open Stop: 01/20/18 19:58 Last Admin: 01/20/18 20:23 Dose: 1,000 mls Ondansetron HCl (Zofran) 4 mg IVP EDNOW ONE Stop: 01/20/18 19:58 Last Admin: 01/20/18 20:31 Dose: Not Given Promethazine HCl (Phenergan) 6.25 mg IVP ONCE ONE Stop: 01/20/18 20:20 Last Admin: 01/20/18 20:23 Dose: 6.25 mg Departure - Departure Disposition: [facility] Inpatient Acute Clinical Impression: Volume depletion Abdominal pain Qualifiers: Abdominal location: generalized Qualified Code(s): R10.84 - Generalized abdominal pain Intractable vomiting Qualifiers: Vomiting type: cyclical vomiting Nausea presence: with nausea Qualified Code(s) : G43.A1 - Cyclical vomiting, intractable Condition: Fair
[2018-01-20] MEDS ORDERED: PROMETHAZINE HCL 25 MG/ML INJ IVP ONE ×2 (20:19→21:13)
[2018-01-20 20:23] LABS: PLATELET COUNT 440 10^3/uL (150-400)
[2018-01-20] MEDS ORDERED: PROMETHAZINE HCL 25 MG/ML INJ ONE (21:07)
[2018-01-20] MEDS ORDERED: ACETAMINOPHEN 325 MG TAB PO PRN (22:21)
[2018-01-20] MEDS ORDERED: ONDANSETRON 4 MG/2 ML VIAL IVP PRN (22:21)
[2018-01-20] MEDS ORDERED: ONDANSETRON DISINTEGRATING 4 MG TAB PO PRN (22:21)
[2018-01-20] MEDS: PROMETHAZINE HCL 25 MG/ML INJ IVP PRN (22:39)
--- NOTE | 2018-01-20 22:45 | PDGENHP ---
History and Physical - Chief Complaint Nausea, vomiting, abdoinal pain - History of Present Illness 22 yo F with complicated gastrointestinal history of 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 Patient presents in very similar manner to her most recent admission on 01/09. During that stay her symptoms were presumed to be due to viral gastroenteritis, although a GI PCR was negative. She was treated conservatively with IVF, pain control, and anti-emetics. With conservative treatment she improved and was discharged home. She felt better for 5 or 6 days but her symptoms returned over the last 3 days. Of note, she underwent and outpatient HIDA scan that was normal. In the ED on this occasion her laboratory studies are mostly normal aside from mildly elevated alk phos. Case discussed with Dr. Dhillon; records reviewed in EMR. History Information - Allergies/Home Medication List Allergies/Adverse Reactions: milk Allergy (Verified 01/20/18 19:55) mustard Allergy (Verified 01/20/18 19:55) Home Medications: Multivitamins [Multivitamin (*)] 1 each PO DAILY 01/08/18 [Last Taken 01/19/18] lamoTRIgine [LamICTAL 100 MG (*)] 50 mg PO BID 01/08/18 [Last Taken 01/19/18] oxyCODONE ORAL SOLUTION [Roxicodone Intensol] 20 mg PO Q6H PRN 01/08/18 [Last Taken 01/19/18] Cholecalciferol Vit D3 [Vitamin D3 (*)] 1,000 units PO DAILY 01/20/18 [Last Taken 01/19/18] Herbals/Supplements -Info Only 1 ea PO DAILY 01/20/18 [Last Taken 01/19/18] Promethazine HCl [Phenergan] 25 mg PO BID 01/20/18 [Last Taken 01/19/18 25mg IM] I have personally reviewed and updated: family history, medical history - Past Medical History Additional medical history: Intestinal pseudoobstruction s/p colectomy and gastrectomy, SMA syndrome, median arcuate ligement syndrome, gastroparesis, vertebral compression fractures, seizure disorder - Surgical History Additional surgical history: total colectomy with continent ileostomy formation , gastrectomy with Chandler-en-Y gastrojejunostomy, median arcuate ligament release , SMA syndrome release, G and J tubes which are now removed - Family History Additional family history: VTE - Social History Smoking Status: Never smoked Additional social history: Lives with el and 2 other roommates, 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 Review of Systems Review of Systems: ROS: 10pt was reviewed & negative except for what was stated in HPI & below Physical Exam Physical Exam: Temp Pulse Resp BP Pulse Ox 36.4 C 106 H 16 118/80 96 01/20/18 21:50 01/20/18 21:50 01/20/18 21:50 01/20/18 21:50 01/20/18 21:50 Constitutional: chronically ill appearing, uncomfortable Eyes: PERRL, EOMI Ears, Nose, Mouth, Throat: moist mucous membranes, no oral mucosal ulcers Cardiovascular: no murmur, rub, or gallop, tachycardia Respiratory: no respiratory distress, clear to auscultation Gastrointestinal: tenderness (Mild), No guarding, No rebound, No distension Skin: warm, other (Ileostomy RLQ) Musculoskeletal: full muscle strength, no muscle tenderness Neurologic: AAOx3, CN II-XII Intact Psychiatric: interacting appropriately, not anxious Lab Data & Imaging Review 01/20/18 20:10 01/20/18 20:10 WBC 7.42 10^3/uL (3.80-9.50) 01/20/18 20:10 RBC 5.06 10^6/uL (4.18-5.33) 01/20/18 20:10 Hgb 15.4 g/dL (12.6-16.3) 01/20/18 20:10 Hct 47.0 % (38.0-47.0) 01/20/18 20:10 MCV 92.9 fL (81.5-99.8) 01/20/18 20:10 MCH 30.4 pg (27.9-34.1) 01/20/18 20:10 MCHC 32.8 g/dL (32.4-36.7) 01/20/18 20:10 RDW 12.4 % (11.5-15.2) 01/20/18 20:10 Plt Count 440 10^3/uL (150-400) H 01/20/18 20:10 MPV 8.9 fL (8.7-11.7) 01/20/18 20:10 Neut % (Auto) 62.6 % (39.3-74.2) 01/20/18 20:10 Lymph % (Auto) 30.1 % (15.0-45.0) 01/20/18 20:10 Sherman % (Auto) 6.2 % (4.5-13.0) 01/20/18 20:10 Eos % (Auto) 0.3 % (0.6-7.6) L 01/20/18 20:10 Baso % (Auto) 0.4 % (0.3-1.7) 01/20/18 20:10 Nucleat RBC Rel Count 0.0 % (0.0-0.2) 01/20/18 20:10 Absolute Neuts (auto) 4.65 10^3/uL (1.70-6.50) 01/20/18 20:10 Absolute Lymphs (auto) 2.23 10^3/uL (1.00-3.00) 01/20/18 20:10 Absolute Monos (auto) 0.46 10^3/uL (0.30-0.80) 01/20/18 20:10 Absolute Eos (auto) 0.02 10^3/uL (0.03-0.40) L 01/20/18 20:10 Absolute Basos (auto) 0.03 10^3/uL (0.02-0.10) 01/20/18 20:10 Absolute Nucleated RBC 0.00 10^3/uL (0-0.01) 01/20/18 20:10 Immature Gran % 0.4 % (0.0-1.1) 01/20/18 20:10 Immature Gran # 0.03 10^3/uL (0.00-0.10) 01/20/18 20:10 Sodium 141 mEq/L (135-145) 01/20/18 20:10 Potassium 4.0 mEq/L (3.3-5.0) 01/20/18 20:10 Chloride 107 mEq/L (97-110) 01/20/18 20:10 Carbon Dioxide 23 mEq/l (22-31) 01/20/18 20:10 Anion Gap 11 mEq/L (6-14) 01/20/18 20:10 BUN 10 mg/dL (7-23) 01/20/18 20:10 Creatinine 0.6 mg/dL (0.6-1.0) 01/20/18 20:10 Estimated GFR > 60 01/20/18 20:10 Glucose 59 mg/dL (70-100) L 01/20/18 20:10 Calcium 10.2 mg/dL (8.5-10.4) 01/20/18 20:10 Total Bilirubin 0.3 mg/dL (0.1-1.4) 01/20/18 20:10 Conjugated Bilirubin 0.3 mg/dL (0.0-0.5) 01/20/18 20:10 Unconjugated Bilirubin 0.0 mg/dL (0.0-1.1) 01/20/18 20:10 AST 46 IU/L (14-46) 01/20/18 20:10 ALT 25 IU/L (9-52) 01/20/18 20:10 Alkaline Phosphatase 152 IU/L (38-126) H 01/20/18 20:10 Total Protein 8.1 g/dL (6.3-8.2) 01/20/18 20:10 Albumin 4.8 g/dL (3.5-5.0) 01/20/18 20:10 Lipase 90 IU/L (23-300) 01/20/18 20:10 Beta HCG, Qual NEGATIVE 01/20/18 20:10 Assessment & Plan Assessment: 22yo F with complicated gastrointestinal history of 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 Plan: 1. Nausea, vomiting - Continuation of symptoms from admission 10 days ago that were presumed to be due to viral gastroenteritis at that time. She improved initially with conservative care but her symptoms returned after a few days. Her laboratory work-up is mostly normal today aside from mild elevation in Alk Phos. She is not displaying any signs of sepsis at this time. HIDA scan performed as outpatient is normal. - Admit for observation - Conservative treatment with mIVF, pain control, anti-emetics PRN - If not improving, consider additional imaging or surgical consultation 2. Intestinal dysmotility - S/p a host of surgical interventions including total colectomy and gastrectomy. 3. SMA syndrome, median arcuate ligament syndrome: S/p surgical release with Dr Yao 4. Seizures disorder - Continue lamotrigine 5. Vertebral compression fractures - Suffered during recent seizure. - Pain control PRN Diet - Clears, ADAT Code - Full Ppx - Low risk, ambulate TID Dispo - Admit under observation status
[2018-01-20] MEDS: D5W 1/2 NS 1,000 ML IV SCH (23:22)
[2018-01-20] MEDS: LORazepam 2 MG/ML INJ IVP PRN (23:24)
[2018-01-21] MEDS: LORazepam 2 MG/ML INJ IVP PRN ×5 (03:27→21:30)
[2018-01-21 04:21] LABS: PLATELET COUNT 305 10^3/uL (150-400)
[2018-01-21] MEDS: PROMETHAZINE HCL 25 MG/ML INJ IVP PRN ×3 (05:22→17:59)
[2018-01-21] MEDS: D5W 1/2 NS 1,000 ML IV SCH ×2 (08:52→17:32)
[2018-01-21] MEDS ORDERED: Herbals/Supplements -Info Only PO SCH (09:00)
[2018-01-21] MEDS: lamoTRIgine 100 MG TAB PO SCH ×2 (11:39→21:30)
[2018-01-21] MEDS: oxyCODONE ORAL SOLUTION 10 MG/0.5 ML UDSYR PO PRN ×2 (11:42→17:59)
[2018-01-21] MEDS: MULTIVITAMINS 1 EACH TAB PO SCH (11:44)
[2018-01-21] MEDS: CHOLECALCIFEROL VIT D3 1,000 UNITS TAB PO SCH (11:44)
--- NOTE | 2018-01-21 12:44 | ASMTCMCOM ---
CM Note CM Note Notes: Pts case discussed in tx rounds. Pt is a 22 y/o female admitted for intractable abdominal pain and intractable vomiting. Dr. Antonio plans on consulting Dr. Yao. Pt reports that she is currently living in [place] w/ her [facility]. Pt was recently d/c on 01/11 with Family BRITTANEY, DONNIE and MICAELA. Pt will most likely d/c with the same services. Pt has been in the process of finding a new therapist. Pt goes to her PCP weekly for support. CM to follow. Plan: Family BRITTANEY; DONNIE and MICAELA Date Signed: 01/21/2018 12:43 PM Electronically Signed By:BRENDA Farah
--- NOTE | 2018-01-21 12:55 | HOSPPROG ---
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 Plan: Nausea, vomiting, increased ostomy output - HIDA scan performed as outpatient is normal. She has not been tolerating her usual oxycodone dosing and thus I considered opioid w/d. Abdominal exam today seems benign. - send GI path panel - cont supportive care with IVFs, pain control, anti-emetics PRN - advance diet as tolerated - Dr. Yao contacted, requesting consult given complex surgical hx. At this point I don't think she warrants CT imaging Intestinal dysmotility - S/p a host of surgical interventions including total colectomy and gastrectomy. SMA syndrome, median arcuate ligament syndrome: S/p surgical release with Dr Yao Seizures disorder - Continue lamotrigine Vertebral compression fractures - Suffered during recent seizure. - Pain control PRN Diet - Clears, ADAT Code - Full Ppx - Low risk, ambulate TID Dispo - change to inpt due to inability to tolerate po Subjective: Pt continues to have some nausea, no vomiting today. No fevers. Still reporting increased ostomy output, which is normally "viscous" and now appears more watery. Still c/o abdominal pain. No fevers/chills. She is tolerating clear liquids. Asks for fentanyl patch. Objective: Vital Signs Temp Pulse Resp BP Pulse Ox 36.7 C 89 16 90/55 L 89 L 01/21/18 07:05 01/21/18 07:05 01/21/18 07:05 01/21/18 07:05 01/21/18 07:05 Laboratory Results 01/21/18 03:29 01/21/18 03:29 01/20/18 01/21/18 01/22/18 05:59 05:59 05:59 Intake Total 250 Balance 250 - Physical Exam Constitutional: no apparent distress, chronically ill appearing Eyes: PERRL Ears, Nose, Mouth, Throat: moist mucous membranes Cardiovascular: regular rate and rhythym Respiratory: no respiratory distress, clear to auscultation Gastrointestinal: other (soft, nd, mild diffuse TTP, no r/r/g, ostomy site is clean, no erythema, purulence or drainage) Skin: warm Musculoskeletal: full muscle strength Neurologic: AAOx3 Psychiatric: interacting appropriately ICD10 Worksheet Patient Problems: Problems Problem Status Onset Abdominal pain Acute Intractable vomiting Acute Volume depletion Acute Abdominal abscess Acute Compression fracture of body of thoracic vertebra Acute Dehydration Acute Hypochloremia Acute Near syncope Acute Shortness of breath Acute
--- NOTE | 2018-01-21 13:18 | PDMN ---
Medical Necessity Medical necessity: [facility] Gastroenterology GR yo with complicated gastrointestinal history of intestinal dysmotility/pseudo-obstruction s/p total colectomy with continent ileostomy placement, gastrectomy with Chandler-en-Y gastrojejunostomy, median arcuate ligament syndrome s/p release and numerous hospitalizations for dehydration and electrolyte disturbances presents with abdominal pain associated with vomiting and copious watery output from her ileostomy. Initially OBS status but change to IP as we need to cont w/ tx for n/ v, request surgical consult, cont with intestinal dysmotility and cont to not tolerate PO. BPs in 80s/50's today, cont IVF, IV antiemetics, IV opioids, dietary consult ordered. Hx seizure d/o and vertebral compression fx from recent seizure. Change to IP status 01/21/18 @1137 per MD order
--- NOTE | 2018-01-21 18:28 | GCON ---
CHIEF COMPLAINT: Nausea and vomiting. HPI: 22-year-old female, well known to our practice, who presented to the emergency department yesterday with complaint of intractable nausea and vomiting. She has a significant surgical history including near-total gastrectomy with Chandler-en-Y gastrojejunostomy, median arcuate ligament release, superior mesenteric artery syndrome release and total colectomy.The patient states over the past week she has had nausea after eating fatty meals. States she had 1 episode of vomiting yesterday. She also complains of increased ileostomy output with a thin orange yellow consistency. Denies fever or chills. She complains of right upper quadrant abdominal pain, does not radiate. Her symptoms of nausea and abdominal pain are moderately improved thus far with IV fluids and antiemetics. States if she follows a bland diet her nausea is greatly improved with thickened ostomy output. She underwent a HIDA scan in the outpatient setting, which revealed a 91% ejection fraction. Tolerating fluids well. Additionally complains of lightheadedness and dizziness. She recently underwent a vertebroplasty, which her back pain is no worse than her usual. PAST MEDICAL HISTORY: Significant for intestinal dysmotility, median arcuate ligament syndrome, gastroparesis, dehydration, back pain, vertebral compression fracture, panic disorder and seizure disorder. HOME MEDICATIONS: Multivitamin, lamotrigine, oxycodone, vitamin D, promethazine. FAMILY HISTORY: Noncontributory. SOCIAL HISTORY: Nonsmoker. No alcohol. 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 SURGICAL HISTORY: Near-total gastrectomy with Chandler-en-Y gastrojejunostomy, median arcuate ligament release, superior mesenteric artery syndrome release and total colectomy. ALLERGIES: NKDA REVIEW OF SYSTEMS: A 12-point review of systems is reviewed and negative except for stated in the HPI. PHYSICAL EXAM: VITAL SIGNS: Blood pressure 103/76, heart rate 115, respiratory rate 20, O2 saturation 100, temperature 36.9. GENERAL: Alert and oriented x2. She has poor posture and appears kyphotic while lying in bed, otherwise appears comfortable. HEENT anicteric. SKIN: Normal. HEART: Tachycardic, regular rhythm. No murmur. RESPIRATORY: Clear to auscultation bilaterally. ABDOMEN: Soft, nondistended with mild right upper quadrant pain. No rebound or guarding. Well-healed midline laparotomy incision and prior gastrocutaneous fistula site. Ileostomy stoma site pink, no erythema. NEUROLOGIC: Nonfocal. EXTREMITIES: No edema bilaterally. Labs and imaging studies reviewed. ASSESSMENT: Nausea and emesis with elevated stoma output. 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 PLAN: Continue with conservative therapies including IV fluids, pain medication , and antiemetics. Low clinical suspicion of cholelithiasis or cholecystitis based on previous and prior imaging studies. Discourage further imaging workup at this time. Discussed the results and significance of HIDA scan with the patient. Encourage continued supportive care measures. Anticipate future waxing and waning episodes of GI dysmotility. Will continue to follow. Case discussed with Dr. Yao. /[id number] [id number]
[2018-01-22] MEDS: PROMETHAZINE HCL 25 MG/ML INJ IVP PRN ×2 (00:01→07:45)
[2018-01-22] MEDS: oxyCODONE ORAL SOLUTION 10 MG/0.5 ML UDSYR PO PRN ×4 (00:02→18:45)
[2018-01-22] MEDS: LORazepam 2 MG/ML INJ IVP PRN ×2 (01:51→07:49)
[2018-01-22] MEDS: MULTIVITAMINS 1 EACH TAB PO SCH (07:51)
[2018-01-22] MEDS: CHOLECALCIFEROL VIT D3 1,000 UNITS TAB PO SCH (07:51)
[2018-01-22] MEDS: lamoTRIgine 100 MG TAB PO SCH ×2 (07:51→19:57)
--- NOTE | 2018-01-22 11:54 | HOSPPROG ---
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 Plan: Nausea, vomiting, increased ostomy output - Improved. No more vomiting, no e/o abnormal ostomy output. HIDA scan performed as outpatient is normal. Abdominal exam today again seems benign. She is tolerating smoothies and potato chips. Discussed with Dr. Yao who does not recommend any further imaging or w/u, but did suggest trial of Bentyl - GI path panel neg 01/08 - cont supportive care with IVFs, anti-emetics PRN - discussed d/c'ing IV meds and changing to oral meds today in anticipation of dc tomorrow. I believe it is more harmful for her to continue IV bzds and ongoing IV opiates, need to focus on coping strategies. Dr. Yao agrees. - will request [facility] RN consult for assistance, she may be candidate for outpt palliative care for symptom management - cont home oral oxy, but defer further IV opiates - add bentyl prn Intestinal dysmotility - S/P a host of surgical interventions including total colectomy and gastrectomy. SMA syndrome, median arcuate ligament syndrome: S/p surgical release with Dr Yao Seizures disorder - Continue lamotrigine Vertebral compression fractures - Suffered during recent seizure. - Pain control PRN ?Depression - [facility] resource RN consult requested. Could consider SSRI, but would prefer to an outpt provider who follows her closely to start this for close f/u. Diet - ADAT Code - Full Ppx - given ongoing hospitalization with limited mobility, start Lovenox Dispo - cont inpt, possible d/c tomorrow Subjective: Pt doing ok, tolerated a smoothie and potato chips. She is taking ativan and morphine IV at every possible interval. She appears comfortable, on her computer, talking on the phone when I enter. No fevers/chills. No reported abnormal ostomy output by RN. No vomiting. She still c/o nausea and is requesting frequent IV phenergan. Objective: Vital Signs Temp Pulse Resp BP Pulse Ox 36.5 C 101 H 16 91/56 L 99 01/22/18 07:44 01/22/18 07:44 01/22/18 07:44 01/22/18 07:44 01/22/18 07:44 01/21/18 01/22/18 01/23/18 05:59 05:59 05:59 Intake Total 4340 Balance 4340 - Physical Exam Constitutional: no apparent distress, chronically ill appearing Eyes: PERRL Ears, Nose, Mouth, Throat: moist mucous membranes Cardiovascular: regular rate and rhythym Respiratory: no respiratory distress, clear to auscultation Gastrointestinal: normoactive bowel sounds, soft, non-tender abdomen, other ( ostomy site clean, no drainage or purulence, no erythema) Skin: warm Musculoskeletal: full muscle strength Neurologic: AAOx3 Psychiatric: interacting appropriately ICD10 Worksheet Patient Problems: Problems Problem Status Onset Abdominal pain Acute Intractable vomiting Acute Volume depletion Acute Abdominal abscess Acute Compression fracture of body of thoracic vertebra Acute Dehydration Acute Hypochloremia Acute Near syncope Acute Shortness of breath Acute
[2018-01-22] MEDS: PROMETHAZINE HCL 25 MG TAB PO PRN ×2 (12:41→19:57)
[2018-01-22] MEDS ORDERED: DICYCLOMINE 10 MG CAP PO PRN (14:03)
[2018-01-22] MEDS ORDERED: IBUPROFEN 600 MG TAB PO PRN (14:10)
--- NOTE | 2018-01-22 15:02 | ASMTCMCOM ---
CM Note CM Note Notes: Pts case discussed in tx rounds. The plan is for pt to be transitioned to oral medications. CM spoke to Dr. Yao and Dr. Antonio regarding this case. Pt has been doing fairly well according to Maximilian. CM met w/ pt for dispo planning. Pt reports that she is being treated as a "drug addict'. Pt would like to speak to the pt rep. CM left a msg for Mandie Lewis. Pt reports that coping skills do not work when she is upset. Pt is requesting for ativan. Pt reports that she found a therapist she sees weekly. Pt reports also going to her pcp office weekly. Claudia Milner has been consulted. CM to follow. Plan: [facility]; RN, HOTEL SUPERINTENDENT Date Signed: 01/22/2018 03:02 PM Electronically Signed By:BRENDA Farah
--- NOTE | 2018-01-22 16:11 | SOAPPROG ---
<Kathryn Ridley - Last Filed: 01/22/18 16:05> SOAP Progress Note Assessment/Plan: Assessment/Plan: Continues to have persistent nausea. Low suspicion her symptoms are due to her gallbladder. Again discourage further imaging work up at this time. Agree with continued conservative treatment as per hospital service. Offered fiber supplementation to help with thin ostomy output- patient declined. Discussed plan with patient. Patient seen and evaluated with Dr. Yao. 01/22/18 16:15 Subjective: Continues to have nausea. This is moderately improved with antiemetics. No vomiting since her admission. No urinary complaints. No new concerns. Objective: Vital Signs Temp Pulse Resp BP Pulse Ox 36.5 C 101 H 16 91/56 L 99 01/22/18 07:44 01/22/18 07:44 01/22/18 07:44 01/22/18 07:44 01/22/18 07:44 01/21/18 01/22/18 01/23/18 05:59 05:59 05:59 Intake Total 4340 Output Total 400 Balance 4340 -400 Physical Exam: General: A&O x3, appears comfortable HEENT: anicteric Skin: dry, normal Heart: RRR Lungs: CTA Abdomen: Soft, nondistended, mild RUQ tenderness. No Zambrano's sign. Well healed laparotomy incision. Ileostomy stoma site pink without erythema. Extremities: no edema Psych: tearful during visit ICD10 Worksheet Patient Problems: Problems Problem Status Onset Abdominal pain Acute Intractable vomiting Acute Volume depletion Acute Abdominal abscess Acute Compression fracture of body of thoracic vertebra Acute Dehydration Acute Hypochloremia Acute Near syncope Acute Shortness of breath Acute <Richy Yao - Last Filed: 01/23/18 14:47> SOAP Progress Note Assessment/Plan: Assessment: patient initially tearful on initial exam today - "having an emotional day." we discussed at length that it is expected that she may have continued temporary setbacks given her unique anatomy and congenital dysmotility concerns. she had been doing great up until recent, gaining weight, and thriving with her studies again. she states that fatty foods seem to upset her and her stoma output as of recent. we discussed that gallbladder surgery is not an imminent concern as she seems to think this my be the root cause of her acute symptoms. after our lengthy discussion, she acknowledged that she was on the same page with conservative measures and supportive care for her active loose stoma output and nausea. care plan reviewed with hospitalist staff and director case. Plan: 01/23/18 14:43 Objective: Vital Signs Temp Pulse Resp BP Pulse Ox 36.7 C 97 14 96/72 L 95 01/23/18 11:36 01/23/18 11:36 01/23/18 11:36 01/23/18 11:36 01/23/18 11:36 01/22/18 01/23/18 01/24/18 05:59 05:59 05:59 Intake Total 4340 2432 Output Total 1300 700 Balance 4340 1132 -700
[2018-01-22] MEDS ORDERED: KETOROLAC 15 MG/1 ML SDV IVP PRN (16:34)
[2018-01-22] MEDS: ENOXAPARIN 40 MG/0.4 ML SYR SC SCH (16:50)
[2018-01-22] MEDS ORDERED: LORazepam 1 MG TAB PO ONE (18:45)
[2018-01-22] MEDS: D5W 1/2 NS 1,000 ML IV SCH (19:59)
[2018-01-22] MEDS ORDERED: LIDOCAINE 4%/MENTHOL 1% PATCH TD PRN (22:33)
[2018-01-23] MEDS: PATCH REMOVAL 1 EA PATCH TD SCH (00:19)
[2018-01-23] MEDS: oxyCODONE ORAL SOLUTION 10 MG/0.5 ML UDSYR PO PRN ×5 (01:28→22:35)
[2018-01-23] MEDS: D5W 1/2 NS 1,000 ML IV SCH ×2 (04:55→16:33)
[2018-01-23] MEDS: CHOLECALCIFEROL VIT D3 1,000 UNITS TAB PO SCH (10:32)
[2018-01-23] MEDS: MULTIVITAMINS 1 EACH TAB PO SCH (10:32)
[2018-01-23] MEDS: PROMETHAZINE HCL 25 MG TAB PO PRN ×3 (10:32→22:35)
[2018-01-23] MEDS: ENOXAPARIN 40 MG/0.4 ML SYR SC SCH (10:33)
[2018-01-23] MEDS: lamoTRIgine 100 MG TAB PO SCH ×2 (10:33→20:50)
[2018-01-23] MEDS: hydrOXYzine HCL 25 MG TAB PO PRN ×2 (11:31→18:06)
--- NOTE | 2018-01-23 13:30 | HOSPPROG ---
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 Plan: Nausea, vomiting - Improved. No more vomiting, no e/o abnormal ostomy output. HIDA scan performed as outpatient is normal. Abdominal exam today again benign. She is tolerating smoothies and potato chips. Discussed with Dr. Yao who does not recommend any further imaging or w/u, but did suggest trial of Bentyl - GI path panel neg 01/08 - cont supportive care with IVFs, anti-emetics PRN - difficult day yesterday transitioning off IV opiates, IV bzds and IV phenergan , but doing better today - palliative care is planned for improved outpt support and symptom management, pt engaged - cont home oral oxy, but defer further IV opiates - cont bentyl prn Intestinal dysmotility - S/P a host of surgical interventions including total colectomy and gastrectomy. SMA syndrome, median arcuate ligament syndrome: S/p surgical release with Dr Yao Seizures disorder - Continue lamotrigine Vertebral compression fractures - Suffered during recent seizure. - Pain control PRN Depression/anxiety - Pt had panic attack yesterday. Has difficulty coping with chronic disease issues. - integrative care consult today to help with coping strategies - prn vistaril for anxiety, prefer to avoid bzds - behavioral health psychiatric aides teacher consult requested Diet - ADAT Code - Full Ppx - Lovenox (informed by RN pt is refusing, recommended ambulation TID) Dispo - cont inpt, possible d/c tomorrow Subjective: Pt feels better today, no vomiting. She is worried about being able to maintain hydration. No fevers/chills. Tolerating po. Objective: Vital Signs Temp Pulse Resp BP Pulse Ox 36.7 C 97 14 96/72 L 95 01/23/18 11:36 01/23/18 11:36 01/23/18 11:36 01/23/18 11:36 01/23/18 11:36 11/01/18 11/02/18 11/03/18 05:59 05:59 05:59 Intake Total 4340 2432 Output Total 1300 700 Balance 4340 1132 -700 - Physical Exam Constitutional: no apparent distress Eyes: PERRL Ears, Nose, Mouth, Throat: moist mucous membranes Cardiovascular: regular rate and rhythym, no murmur, rub, or gallop Respiratory: no respiratory distress, clear to auscultation Gastrointestinal: normoactive bowel sounds, soft, non-tender abdomen, other ( ostomy site clean, no erythema or drainage) Skin: warm Musculoskeletal: full muscle strength Neurologic: AAOx3 Psychiatric: interacting appropriately ICD10 Worksheet Patient Problems: Problems Problem Status Onset Abdominal pain Acute Intractable vomiting Acute Volume depletion Acute Abdominal abscess Acute Compression fracture of body of thoracic vertebra Acute Dehydration Acute Hypochloremia Acute Near syncope Acute Shortness of breath Acute
[2018-01-23] MEDS ORDERED: KETOROLAC 15 MG/1 ML SDV IVP PRN (14:47)
[2018-01-23] MEDS: ACETAMINOPHEN 500 MG TAB PO SCH ×2 (15:26→23:04)
--- NOTE | 2018-01-23 15:26 | ASMTCMCOM ---
CM Note CM Note Notes: Pts case discussed in tx rounds. Palliative has been ordered. chaplain Andreina met w/ pt for a palliative meeting. Pt is interested in palliative. Referral sent to [facility]. Alex from [facility] stopped by and visited w/ pt. An BULK STATION OPERATOR from [facility] is able to meet w/ pt on Friday. Possible d/c for tomorrow. Pt will resume services w/ [facility]; RN and DISHROOM ATTENDANT. CM to follow. Plan: [facility] Date Signed: 01/23/2018 03:26 PM Electronically Signed By:BRENDA Farah
--- NOTE | 2018-01-23 17:16 | SOAPPROG ---
SOAP Progress Note Assessment/Plan: Assessment/Plan: Doing better today. Abdominal complaints improving with supportive treatments. Encouraged further palliative care and psychiatry services. Hospital service planning on discharge tomorrow. Will follow up in the outpatient setting in 2 weeks. Patient case discussed with Dr. Yao. 01/23/18 17:25 Subjective: Nausea and abdominal pain improved today. Eating small bland foods, little appetite today. Ostomy output slowly decreasing. Minimal improvement with addition of Bentyl- she has this medication at home. Complains of worsening back pain, which she has been struggling with since her vertebroplasty in November. Seeking additional help from palliative care, and saw Bill today. She had a panic attack last night, for which she plans to address during a psych consult. Objective: Vital Signs Temp Pulse Resp BP Pulse Ox 36.5 C 116 H 12 102/64 97 01/23/18 15:03 01/23/18 15:03 01/23/18 15:03 01/23/18 15:03 01/23/18 15:03 01/22/18 01/23/18 01/24/18 05:59 05:59 05:59 Intake Total 4340 2432 950 Output Total 1300 700 Balance 4340 1132 250 Physical Exam: Gen: A&O x3, appears comfortable HEENT: anicteric Skin: normal Heart: tachycardic, regular rhythm Lungs: CTA Abdomen: soft, nondistended, nontender. Well healed incisions. Ileostomy site pink without erythema. Extremities: no edema Psych: In higher spirits today ICD10 Worksheet Patient Problems: Problems Problem Status Onset Abdominal pain Acute Intractable vomiting Acute Volume depletion Acute Abdominal abscess Acute Compression fracture of body of thoracic vertebra Acute Dehydration Acute Hypochloremia Acute Near syncope Acute Shortness of breath Acute
[2018-01-23] MEDS ORDERED: LIDOCAINE 4%/MENTHOL 1% PATCH TD PRN (21:00)
[2018-01-23] MEDS ORDERED: LORazepam 1 MG TAB PO ONE (23:08)
[2018-01-23] MEDS ORDERED: HYDROmorphONE/DILAUDID 1 MG/ML INJ IVP PRN (23:08)
[2018-01-24] MEDS: PROMETHAZINE HCL 25 MG TAB PO PRN ×4 (04:19→22:57)
[2018-01-24] MEDS: oxyCODONE ORAL SOLUTION 10 MG/0.5 ML UDSYR PO PRN ×4 (04:38→22:58)
[2018-01-24] MEDS: hydrOXYzine HCL 25 MG TAB PO PRN ×3 (05:02→22:56)
[2018-01-24] MEDS: D5W 1/2 NS 1,000 ML IV SCH (05:03)
[2018-01-24] MEDS: ACETAMINOPHEN 500 MG TAB PO SCH ×3 (07:38→22:21)
[2018-01-24] MEDS: lamoTRIgine 100 MG TAB PO SCH ×2 (09:04→20:28)
[2018-01-24] MEDS: CHOLECALCIFEROL VIT D3 1,000 UNITS TAB PO SCH (09:04)
[2018-01-24] MEDS: MULTIVITAMINS 1 EACH TAB PO SCH (09:04)
[2018-01-24] MEDS: ENOXAPARIN 40 MG/0.4 ML SYR SC SCH (09:06)
[2018-01-24] MEDS: PATCH REMOVAL 1 EA PATCH TD SCH (10:56)
--- NOTE | 2018-01-24 14:55 | HOSPPROG ---
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 Plan: Nausea, vomiting - Improved. No more vomiting, no e/o abnormal ostomy output. HIDA scan performed as outpatient is normal. Abdominal exam today again benign. She is tolerating smoothies and potato chips. Discussed with Dr. Yao who does not recommend any further imaging or w/u, but did suggest trial of Bentyl - GI path panel neg 01/08 - cont supportive care with IVFs, anti-emetics PRN - we have transitioned off IV meds, po zofran, phenergan prn (she continues to request IV phenergan) - palliative care is planned for improved outpt support and symptom management, pt engaged and has appt Friday - cont home oral oxy, but defer further IV opiates - cont bentyl prn Intestinal dysmotility - S/P a host of surgical interventions including total colectomy and gastrectomy. - no e/o vomiting or acute abdominal issues SMA syndrome, median arcuate ligament syndrome: S/p surgical release with Dr Yao Seizures disorder - Continue lamotrigine Vertebral compression fractures - Suffered during recent seizure. - will add robaxin for possible muscle spasm component Depression/anxiety - Pt has had some panic attacks. Has difficulty coping with chronic disease issues. - integrative care consult done to help with coping strategies, pt did not engage with this - prn vistaril for anxiety, prefer to avoid bzds - add buspar - behavioral health educational psychologist consult requested - discussed addition of maintenance medication for depression/anxiety. She has tried a host of options including SSRI's, Mirtazapine, TCA's without effect - defer to pcp options for anti-depressants. She has appt friday afternoon Diet - ADAT Code - Full Ppx - Lovenox (informed by RN pt is refusing, recommended ambulation TID) Dispo - cont inpt, d/c ivf's today and possible d/c tomorrow Objective: Vital Signs Temp Pulse Resp BP Pulse Ox 36.8 C 82 14 95/40 L 96 01/24/18 08:00 01/24/18 08:00 01/24/18 08:00 01/24/18 08:00 01/24/18 08:00 01/23/18 01/24/18 01/25/18 05:59 05:59 04:59 Intake Total 5202 2180 Output Total 1300 2000 Balance 1132 180 ICD10 Worksheet Patient Problems: Problems Problem Status Onset Abdominal pain Acute Intractable vomiting Acute Volume depletion Acute Abdominal abscess Acute Compression fracture of body of thoracic vertebra Acute Dehydration Acute Hypochloremia Acute Near syncope Acute Shortness of breath Acute
[2018-01-24] MEDS ORDERED: METHOCARBAMOL 750 MG TAB PO PRN (15:09)
[2018-01-24] MEDS: busPIRone 5 MG TAB PO SCH ×2 (16:04→20:28)
[2018-01-24] MEDS ORDERED: LORazepam 1 MG TAB PO ONE (18:52)
[2018-01-24] MEDS ORDERED: HYDROmorphONE/DILAUDID 2 MG TAB PO ONE (18:52)
[2018-01-25] MEDS: PROMETHAZINE HCL 25 MG TAB PO PRN (06:22)
[2018-01-25] MEDS: oxyCODONE ORAL SOLUTION 10 MG/0.5 ML UDSYR PO PRN ×2 (06:23→11:09)
[2018-01-25 07:35] VITALS: BP 89/48
[2018-01-25] MEDS: ACETAMINOPHEN 500 MG TAB PO SCH (07:45)
[2018-01-25] MEDS ORDERED: NS 500 ML IV ONE (08:49)
--- NOTE | 2018-01-25 09:20 | PDIAF ---
- Diagnosis Diagnosis: s/p multiple abdominal surgeries, colectomy, continent ileostomy, anxiety Code Status: Full Code - Medication Management Discharge Medications: electronically signed and located in the Home Medication List. - Orders Services needed: Home Care, Registered Nurse, Master Body Recall Instructor Home Care Face to Face: I certify that this patient was under my care and that I had the required [id number] encounter meeting the encounter requirements on the discharge day. My findings support the fact that the patient is homebound as defined in Home Care Face to Face Continued: CMS Chapter 7 Medicare Benefits Manual 30.1.1 , The condition of the patient is such that there exists a normal inability to leave home and consequently, leaving home would require a considerable and taxing effort. Isolation Type: None Diet Recommendation: no restrictions on diet - Follow Up Care Current Providers and Referrals: Umu Hill DO [Primary Care Provider] - As per Instructions Richy Yao MD [Medical Doctor] - follow up in 2 weeks
[2018-01-25] MEDS: MULTIVITAMINS 1 EACH TAB PO SCH (09:22)
[2018-01-25] MEDS: CHOLECALCIFEROL VIT D3 1,000 UNITS TAB PO SCH (09:22)
[2018-01-25] MEDS: lamoTRIgine 100 MG TAB PO SCH (09:22)
[2018-01-25] MEDS: ENOXAPARIN 40 MG/0.4 ML SYR SC SCH (09:23)
[2018-01-25] MEDS: busPIRone 5 MG TAB PO SCH (09:23)
[2018-01-25] MEDS: PATCH REMOVAL 1 EA PATCH TD SCH (10:13)
--- NOTE | 2018-01-25 11:34 | ASDISCHSUM ---
Discharge Information Plan Status:Home with Home Health Medically Cleared to Leave:01/25/2018 Discharge Date:01/25/2018 11:29 AM D/C Disposition:Home Health Service [facility] D/C Disposition:Home, Routine, Self-Care Projected Discharge Date:01/25/2018 12:00 PM Transportation at D/C:Friend Discharge Delay Reason: Follow-Up Date:01/25/2018 12:00 PM Discharge Slot:1 - 8:01 am - 12:00 noon Final Diagnosis:N/V Abd pain Placement Information Referral Type:*Home Health Care Services Referral ID:[id number] Provider Name:[facility] Address 1:[address] [place] [address] Address 2: City:[place] Selection Factors: State:[place] Referral Type:Palliative Care Referral ID:[id number] Provider Name:[facility] Address 1:[address] [facility] Phone Number: Address 2: Fax Number: [facility]:[place] Selection Factors: State:[place] Patient Contact Information Contact Name:AGUILAR Relationship:Other Address: Work Phone: City:[place] Alternate Phone: [facility]/Zip Code:[place] Email: Financial Information Financial Class:BCOP Primary Plan Desc:BC OUT OF STATE PPO Primary Plan Number:[id number] Secondary Plan Desc:MED[place] Secondary Plan Number:[id number] Assessment Information LACE LACE Length of stay for Answers: 4-6 days current admission Comorbidities - select Answers: Opioid dependence all that apply / Chronic pain Other Notes: Gastrointestinal histor y # of Emergency department Answers: 12+ visits in the last 6 months Score: 15 Date Signed: 01/25/2018 11:32 AM Electronically Signed By:Mary Ellen Fox LCSW [facility] CM Progress Note CM Note CM Note Notes: Pts case discussed in tx rounds. Pt is a 22 y/o female admitted for intractable abdominal pain and intractable vomiting. Dr. Antonio plans on consulting Dr. Yao. Pt reports that she is currently living in [place] w/ her [facility]. Pt was recently d/c on 01/11 with [facility], RN and SW. Pt will most likely d/c with the same services. Pt has been in the process of finding a new therapist. Pt goes to her PCP weekly for support. CM to follow. Plan: [facility]; DONNIE and SW Date Signed: 01/21/2018 12:43 PM Electronically Signed By:BRENDA Farah [facility] Progress Note CM Note CM Note Notes: Pts case discussed in tx rounds. The plan is for pt to be transitioned to oral medications. CM spoke to Dr. Yao and Dr. Antonio regarding this case. Pt has been doing fairly well according to Maximilian. CM met w/ pt for dispo planning. Pt reports that she is being treated as a "drug addict'. Pt would like to speak to the pt rep. CM left a msg for Mandie Lewis. Pt reports that coping skills do not work when she is upset. Pt is requesting for ativan. Pt reports that she found a therapist she sees weekly. Pt reports also going to her pcp office weekly. Claudia Milner has been consulted. CM to follow. Plan: Family SHRUTI FIELDS, PROTOTYPE MACHINE OPERATOR Date Signed: 01/22/2018 03:02 PM Electronically Signed By:BRENDA Farah [facility] CM Progress Note CM Note CM Note Notes: Pts case discussed in tx rounds. Palliative has been ordered. chaplain Andreina met w/ pt for a palliative meeting. Pt is interested in palliative. Referral sent to [facility]. Alex from [facility] stopped by and visited w/ pt. An CONSTRUCTION FIELD ENGINEER from [facility] is able to meet w/ pt on Friday. Possible d/c for tomorrow. Pt will resume services w/ [facility]; RN and PROTOTYPE MACHINE OPERATOR. CM to follow. Plan: [facility] with [facility] Date Signed: 01/23/2018 03:26 PM Electronically Signed By:BRENDA Fraah Case Management Discharge Plan Note Case Management Discharge Discharge Order Complete? Answers: Yes Transportation Arranged Answers: Family/Friends Transport will Pick (Date 01/25/2018 12:00 PM & Time) Faxed Final Orders Answers: Yes Notes: [facility]; [facility] Comments Notes: Patient has been discharged home w/HC and Palliative services. Lives with fiance and roommates. Date Signed: 01/25/2018 11:32 AM Electronically Signed By:Mary Ellen Fox LCSW Intervention Information
== END 2018-01-25 11:29 | disposition home or self-care (01) | DRG 392 ==
LOC: F2W 21:46 → OBSVTOIN 01-21 11:37 → F3N 01-23 23:02
PROVIDERS: ADMIT Internal Medicine; ATTEND Internal Medicine
DX: R11.2 Nausea with vomiting, unspecified (principal); M48.50XA Collapsed vertebra, not elsewhere classified, site unspecified, initial encounter for fracture; Z68.1 Body mass index [BMI] 19.9 or less, adult; Z93.2 Ileostomy status; E86.9 Volume depletion, unspecified; G40.909 Epilepsy, unspecified, not intractable, without status epilepticus
CPT/HCPCS: 96374; G0378; J1170; J1650; J1885; J2060; J2270; J2550

== ENCOUNTER → 2018-01-20 | Outpatient (CLI) | payer BC, MEDICAID | LOC: FIMAGING 12:55 | PROVIDERS: ATTEND Family Medicine | DX: R10.11 Right upper quadrant pain (principal); R11.0 Nausea | CPT/HCPCS: 78227; A9537 ==

== ENCOUNTER 2018-01-26 14:48 | Inpatient (IN) | payer BC, MEDICAID ==
--- NOTE | 2018-01-26 15:24 | EDPHY ---
H & P Time Seen by Provider: 01/26/18 15:15 HPI/ROS: Chief complaint. Syncope HPI. Patient is 22-year-old female presents emergency department after a syncopal episode. She was admitted January 20 for abdominal pain and dehydration and was discharged yesterday. She was at the physician's office and began to feel lightheaded and then passed out. She landed on her back. She has a known vertebral compression fracture after having a seizure. She hurt her back in the same place where her previous compression fractures are located which is in the lower thoracic spine. She had no chest discomfort or trouble breathing. 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 She has noted increased fluid in output in her ostomy bag today. She has some crampy abdominal pain that is generalized. She is nauseated and has been unable to take in adequate food or fluids. She also does have some cervical spine discomfort. No head injury ROS 10 systems were reviewed and negative with the exception of the elements mentioned in the history of present illness Past Medical/Surgical History: Intestinal dysmotility/pseudo-obstruction, median arcuate ligament syndrome, gastroparesis, SMA syndrome, recent vertebral compression fractures seizure disorder. Total colectomy Social History: Single, nonsmoker, no alcohol Smoking Status: Never smoked Physical Exam: General Appearance: Alert well-developed female moderate distress vital signs significant for heart rate 127 and initial blood pressure 96/73 Eyes: Pupils equal and round no pallor or injection. ENT, mucous membranes are dry Respiratory: There are no retractions, lungs are clear to auscultation. Cardiovascular: Regular rate and rhythm. Gastrointestinal: Abdomen is soft diffusely tender. No masses. Neurological: Awake and alert, sensory and motor exams grossly normal. Skin: Warm and dry, no rashes. Musculoskeletal: Neck is supple nontender. Extremities symmetrical, full range of motion. Psychiatric: Patient is oriented X 3, there is no agitation. Constitutional: Initial Vital Signs Temperature (C) 36.6 C 01/26/18 14:49 Heart Rate 127 H 01/26/18 14:49 Respiratory Rate 18 01/26/18 14:49 Blood Pressure 96/73 L 01/26/18 14:49 O2 Sat (%) 99 01/26/18 14:49 O2 Delivery Mode Room Air Allergies/Adverse Reactions: milk Allergy (Verified 01/20/18 19:55) mustard Allergy (Verified 01/20/18 19:55) Home Medications: Medication Instructions Recorded Multivitamins [Multivitamin (*)] 1 each PO DAILY 01/08/18 lamoTRIgine [LamICTAL 100 MG (*)] 50 mg PO BID 01/08/18 oxyCODONE ORAL SOLUTION 20 mg PO Q6H PRN 01/08/18 [Roxicodone Intensol] Cholecalciferol Vit D3 [Vitamin D3 1,000 units PO DAILY 01/20/18 (*)] Herbals/Supplements -Info Only 1 ea PO DAILY 01/20/18 Acetaminophen [Tylenol ES 500 mg 1,000 mg PO Q8H tab 01/25/18 (*)] Dicyclomine [Bentyl 10 MG (*)] 10 mg PO QID PRN #120 cap 01/25/18 LORazepam [Ativan] 1 mg PO DAILY PRN #5 tablet 01/25/18 Lidocaine 4%/Menthol 1% [Icy Hot 1 patch TD DAILY@2100 PRN patch 01/25/18 Lidocaine/Menthol 4%/1% Patch (*)] Methocarbamol [Robaxin 750 mg (*)] 750 mg PO TID PRN #30 tab 01/25/18 Promethazine HCl [Phenergan 25mg 12.5 mg PO Q6HRS PRN #20 tab 01/25/18 (*)] busPIRone [Buspar (*)] 5 mg PO TID #90 tab 01/25/18 Medical Decision Making - Diagnostics EKG Interpretation: EKG interpreted by me shows sinus tachycardia normal interval. Left axis deviation with left anterior fascicular block. QRS otherwise normal. There is PVCs. No significant ST elevation or depression. Rate 112 Imaging Results: Imaging Impressions Cervical Spine CT 01/26/18 15:39 Impression: No fracture or evidence of ligamentous injury. Findings and recommendations discussed with JED GOVEA at 4:56 PM hour, 01/26/2018. Final report concurs with initial preliminary interpretation. CT cervical spine is normal CT thoracic spine shows T5, 6 kyphoplasty and compression but stable fractures of 7, 8, 9, 10. Reviewed by me and discussed with Dr. Mayo Procedures: IV normal saline with initial target of 2 L. Phenergan for nausea. Dilaudid for pain ED Course/Re-evaluation: Re-evaluation 5:00 p.m. Patient is stable. The patient her mom and I discussed imaging and lab results. We discussed treatment plan including recommendation for admission. They expressed understanding and agreement I consulted discussed case with Dr. Richardson, hospitalist, who agrees to the admission Differential Diagnosis: Syncope likely due to volume depletion. I considered electrolyte abnormalities. She hurt her back in her fall. She does have compression fractures but they appear to be stable and not acute. - Data Points Laboratory Results: Laboratory Results 01/26/18 16:00 01/26/18 16:00 01/26/18 01/26/18 01/26/18 16:00 16:00 16:00 WBC 7.28 10^3/uL 10^3/uL (3.80-9.50) RBC 4.95 10^6/uL 10^6/uL (4.18-5.33) Hgb 15.0 g/dL g/dL (12.6-16.3) Hct 44.5 % % (38.0-47.0) MCV 89.9 fL fL (81.5-99.8) MCH 30.3 pg pg (27.9-34.1) MCHC 33.7 g/dL g/dL (32.4-36.7) RDW 12.3 % % (11.5-15.2) Plt Count 418 10^3/uL H 10^3/uL (150-400) MPV 8.8 fL fL (8.7-11.7) Neut % (Auto) 65.4 % % (39.3-74.2) Lymph % (Auto) 28.0 % % (15.0-45.0) [place] % (Auto) 5.6 % % (4.5-13.0) Eos % (Auto) 0.1 % L % (0.6-7.6) Baso % (Auto) 0.4 % % (0.3-1.7) Nucleat RBC Rel Count 0.0 % % (0.0-0.2) Absolute Neuts (auto) 4.75 10^3/uL 10^3/uL (1.70-6.50) Absolute Lymphs (auto) 2.04 10^3/uL 10^3/uL (1.00-3.00) Absolute Monos (auto) 0.41 10^3/uL 10^3/uL (0.30-0.80) Absolute Eos (auto) 0.01 10^3/uL L 10^3/uL (0.03-0.40) Absolute Basos (auto) 0.03 10^3/uL 10^3/uL (0.02-0.10) Absolute Nucleated RBC 0.00 10^3/uL 10^3/uL (0-0.01) Immature Gran % 0.5 % % (0.0-1.1) Immature Gran # 0.04 10^3/uL 10^3/uL (0.00-0.10) Sodium 141 mEq/L mEq/L (135-145) Potassium 4.6 mEq/L mEq/L (3.3-5.0) Chloride 105 mEq/L mEq/L (97-110) Carbon Dioxide 24 mEq/l mEq/l (22-31) Anion Gap 12 mEq/L mEq/L (6-14) BUN 10 mg/dL mg/dL (7-23) Creatinine 0.5 mg/dL L mg/dL (0.6-1.0) Estimated GFR > 60 Glucose 63 mg/dL L mg/dL (70-100) Calcium 9.8 mg/dL mg/dL (8.5-10.4) Lipase 204 IU/L IU/L (23-300) Beta HCG, Qual Pending Medications Given: Discontinued Medications Hydromorphone HCl (Dilaudid) 0.5 mg IVP EDNOW ONE Stop: 01/26/18 15:39 Last Admin: 01/26/18 16:15 Dose: 0.5 mg Sodium Chloride (Ns) 1,000 mls @ 0 mls/hr IV EDNOW ONE; Wide Open PRN Reason: Protocol Stop: 01/26/18 15:39 Last Admin: 01/26/18 17:00 Dose: 1,000 mls Sodium Chloride (Ns) 1,000 mls @ 0 mls/hr IV EDNOW ONE; Wide Open PRN Reason: Protocol Stop: 01/26/18 15:39 Last Admin: 01/26/18 16:15 Dose: 1,000 mls Promethazine HCl (Phenergan) 12.5 mg IVP EDNOW ONE Stop: 01/26/18 15:39 Last Admin: 01/26/18 16:15 Dose: 12.5 mg Departure - Departure [facility] [place] Clinical Impression: Dehydration Syncope Qualifiers: Syncope type: unspecified Qualified Code(s): R55 - Syncope and collapse Condition: Fair Referrals: Umu Hill DO [Primary Care Provider] - As per Instructions
[2018-01-26] MEDS ORDERED: PROMETHAZINE HCL 25 MG/ML INJ IVP ONE (15:38)
[2018-01-26] MEDS ORDERED: NS 1,000 ML IV ONE ×2 (15:38)
[2018-01-26] MEDS ORDERED: HYDROmorphONE/DILAUDID 2 MG/ML INJ IVP ONE (15:38)
[2018-01-26 16:10] LABS: PLATELET COUNT 418 10^3/uL (150-400)
--- NOTE | 2018-01-26 19:06 | PDGENHP ---
<Heather Sharpe - Last Filed: 01/26/18 18:56> History and Physical - Chief Complaint Syncope - History of Present Illness 22 y/o female with a complicated gastrointestinal history of dysmotility/pseudo- obstruction s/p total colectomy with continent ileostomy placement, gastrectomy with Chandler-en-Y gastrojejunostomy, median arcuate ligament syndrome s/p release, kyphoplasty and numerous hospitalizations for dehydration and electrolyte disturbances presents with syncopal episode occurring today after visiting her PCP. She believes this is related to her "dumping" syndrome (ileostomy output at time of syncope was 5L per patient). She has had multiple hospital visits due to dehydration, abdominal pain and nausea. The onset of her T2-12 compression fractures is unknown at the moment. She endured a seizure in October 2017 and she reports her fractures were from the seizure. Today, she landed on her back in the same area where the fractures are. Cervical and thoracic CT imaging from today show: known T5/T6 compression fractures s/p kyphoplasty, stable compression fractures T7 and T10, T8 and T9 compression fractures have progressed since October but it is unknown if the progression is related to her fall or it has progressed since October and not caused by this event. She endorses pain to her mid and lower back. Denies chest pains, SOB, fevers/ chills. Past Medical/Surgical History 1. Dysmotility/pseudo-obstruction s/p total colectomy with continent ileostomy placement 2. Gastrectomy with Chandler-en-Y gastrojejunostomy 3. Median arcuate ligament syndrome s/p release 4. Kyphoplasty 5. Dehydration 6. Electrolyte Disturbances 7. Epilepsy 8. SMA Syndrome 9. Gastroparesis 10. Vertebral Compression Fractures History Information - Allergies/Home Medication List Allergies/Adverse Reactions: milk Allergy (Verified 01/20/18 19:55) mustard Allergy (Verified 01/20/18 19:55) Home Medications: Multivitamins [Multivitamin (*)] 1 each PO DAILY 01/08/18 [Last Taken 01/26/18] lamoTRIgine [LamICTAL 100 MG (*)] 50 mg PO BID 01/08/18 [Last Taken 01/26/18 09: 00] oxyCODONE ORAL SOLUTION [Roxicodone Intensol] 20 mg PO Q6H PRN 01/08/18 [Last Taken 01/25/18 21:00] Cholecalciferol Vit D3 [Vitamin D3 (*)] 1,000 units PO DAILY 01/20/18 [Last Taken 01/26/18] I have personally reviewed and updated: family history, medical history, social history, surgical history Past Medical History: See HPI - Past Medical History Additional medical history: Intestinal pseudoobstruction s/p colectomy and gastrectomy, SMA syndrome, median arcuate ligement syndrome, gastroparesis, vertebral compression fractures, seizure disorder - Surgical History Additional surgical history: total colectomy with continent ileostomy formation , gastrectomy with Chandler-en-Y gastrojejunostomy, median arcuate ligament release , SMA syndrome release, G and J tubes which are now removed - Family History Additional family history: VTE - Social History Smoking Status: Never smoked Alcohol Use: None Drug Use: None Additional social history: Lives with el and 2 other roommates, 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 Review of Systems Review of Systems: ROS: 10pt was reviewed & negative except for what was stated in HPI & below Constitutional: Reports: malaise, recent illness, weakness EENMT: Reports: no symptoms Cardiac: Reports: syncope Respiratory: Reports: no symptoms Gastrointestinal: Reports: abdominal pain, nausea, other (Ileostomy) Muscolosketal: Reports: back pain Skin: Reports: no symptoms Neurological: Reports: pre-existing deficit Hematologic/Lymphatic: Reports: no symptoms Immunologic/Allergy: Reports: food allergy, other (See allergy list) Physical Exam Physical Exam: Temp Pulse Resp BP Pulse Ox 36.6 C 85 12 106/72 100 01/26/18 18:02 01/26/18 18:02 01/26/18 18:02 01/26/18 18:02 01/26/18 18:02 Constitutional: other (Cooperative, pleasant patient who appears malnourished; BMI 14.4) Eyes: PERRL, anicteric sclera, EOMI Ears, Nose, Mouth, Throat: moist mucous membranes, hearing normal, ears appear normal, no oral mucosal ulcers Cardiovascular: regular rate and rhythym, no murmur, rub, or gallop, No edema Peripheral Pulses: 2+: dorsalis-pedis (R) (Radial 2+), dorsalis-pedis (L) ( Radial 2+) Respiratory: reduced air movement (Diminished lung sounds throughout) Gastrointestinal: tenderness, guarding, other (Hypoactive bowel sounds) Genitourinary: no bladder fullness, no bladder tenderness Skin: warm, normal color, no rashes or abrasions, no fluctuance, no induration, No mottled Musculoskeletal: full muscle strength, no muscle tenderness, no joint effusions , pain with ROM (Back ) Neurologic: AAOx3, sensation intact bilaterally, CN II-XII Intact Lab Data & Imaging Review 01/26/18 16:00 01/26/18 16:00 WBC 7.28 10^3/uL (3.80-9.50) 01/26/18 16:00 RBC 4.95 10^6/uL (4.18-5.33) 01/26/18 16:00 Hgb 15.0 g/dL (12.6-16.3) 01/26/18 16:00 Hct 44.5 % (38.0-47.0) 01/26/18 16:00 MCV 89.9 fL (81.5-99.8) 01/26/18 16:00 MCH 30.3 pg (27.9-34.1) 01/26/18 16:00 MCHC 33.7 g/dL (32.4-36.7) 01/26/18 16:00 RDW 12.3 % (11.5-15.2) 01/26/18 16:00 Plt Count 418 10^3/uL (150-400) H 01/26/18 16:00 MPV 8.8 fL (8.7-11.7) 01/26/18 16:00 Neut % (Auto) 65.4 % (39.3-74.2) 01/26/18 16:00 Lymph % (Auto) 28.0 % (15.0-45.0) 01/26/18 16:00 [place] % (Auto) 5.6 % (4.5-13.0) 01/26/18 16:00 Eos % (Auto) 0.1 % (0.6-7.6) L 01/26/18 16:00 Baso % (Auto) 0.4 % (0.3-1.7) 01/26/18 16:00 Nucleat RBC Rel Count 0.0 % (0.0-0.2) 01/26/18 16:00 Absolute Neuts (auto) 4.75 10^3/uL (1.70-6.50) 01/26/18 16:00 Absolute Lymphs (auto) 2.04 10^3/uL (1.00-3.00) 01/26/18 16:00 Absolute Monos (auto) 0.41 10^3/uL (0.30-0.80) 01/26/18 16:00 Absolute Eos (auto) 0.01 10^3/uL (0.03-0.40) L 01/26/18 16:00 Absolute Basos (auto) 0.03 10^3/uL (0.02-0.10) 01/26/18 16:00 Absolute Nucleated RBC 0.00 10^3/uL (0-0.01) 01/26/18 16:00 Immature Gran % 0.5 % (0.0-1.1) 01/26/18 16:00 Immature Gran # 0.04 10^3/uL (0.00-0.10) 01/26/18 16:00 Sodium 141 mEq/L (135-145) 01/26/18 16:00 Potassium 4.6 mEq/L (3.3-5.0) 01/26/18 16:00 Chloride 105 mEq/L (97-110) 01/26/18 16:00 Carbon Dioxide 24 mEq/l (22-31) 01/26/18 16:00 Anion Gap 12 mEq/L (6-14) 01/26/18 16:00 BUN 10 mg/dL (7-23) 01/26/18 16:00 Creatinine 0.5 mg/dL (0.6-1.0) L 01/26/18 16:00 Estimated GFR > 60 01/26/18 16:00 Glucose 63 mg/dL (70-100) L 01/26/18 16:00 Calcium 9.8 mg/dL (8.5-10.4) 01/26/18 16:00 Lipase 204 IU/L (23-300) 01/26/18 16:00 Beta HCG, Qual NEGATIVE 01/26/18 16:00 Assessment & Plan Assessment: 22 y/o female with a complicated gastrointestinal history of dysmotility/pseudo- obstruction s/p total colectomy with continent ileostomy placement, gastrectomy with Chandler-en-Y gastrojejunostomy, median arcuate ligament syndrome s/p release, kyphoplasty and numerous hospitalizations for dehydration and electrolyte disturbances presents syncopal episode most likely caused from dumping syndrome , subsequently sustained progressive T8 and T9 compression fractures. Plan: 1. Dumping syndrome: she reports eating a bland diet and not drinking enough fluids. -Educate pt on a diet high in fiber, complex carbs, protein and less sugar -IV fluids -Anti-emetics PRN -Dietary consult -Contact Dr. Yao tomorrow to discuss next step for plan of care 2. Progressive Compression Fractures: Denies numbness/tingling/weakness. Voiding. -Continue to monitor; if symptomatic, consider MRI and consult neuro -Pain PO/IV PRN 3. Dehydration -IV fluids 4. Epilepsy: October 2017 lasted 15 minutes. She has had at least 2 other episodes that were "a couple of seconds each." -Monitor. Continue home medications Diet: Regular VTE ppx: SCDs Code: Full Dispo: Admit to inpatient <Miguelina Richardson - Last Filed: 01/26/18 22:06> History and Physical - History of Present Illness Review of Systems Review of Systems: Physical Exam Physical Exam: Temp Pulse Resp BP Pulse Ox 36.6 C 85 12 106/72 100 01/26/18 18:02 01/26/18 18:02 01/26/18 18:02 01/26/18 18:02 01/26/18 18:02 Lab Data & Imaging Review 01/26/18 16:00 01/26/18 16:00 WBC 7.28 10^3/uL (3.80-9.50) 01/26/18 16:00 RBC 4.95 10^6/uL (4.18-5.33) 01/26/18 16:00 Hgb 15.0 g/dL (12.6-16.3) 01/26/18 16:00 Hct 44.5 % (38.0-47.0) 01/26/18 16:00 MCV 89.9 fL (81.5-99.8) 01/26/18 16:00 MCH 30.3 pg (27.9-34.1) 01/26/18 16:00 MCHC 33.7 g/dL (32.4-36.7) 01/26/18 16:00 RDW 12.3 % (11.5-15.2) 01/26/18 16:00 Plt Count 418 10^3/uL (150-400) H 01/26/18 16:00 MPV 8.8 fL (8.7-11.7) 01/26/18 16:00 Neut % (Auto) 65.4 % (39.3-74.2) 01/26/18 16:00 Lymph % (Auto) 28.0 % (15.0-45.0) 01/26/18 16:00 [place] % (Auto) 5.6 % (4.5-13.0) 01/26/18 16:00 Eos % (Auto) 0.1 % (0.6-7.6) L 01/26/18 16:00 Baso % (Auto) 0.4 % (0.3-1.7) 01/26/18 16:00 Nucleat RBC Rel Count 0.0 % (0.0-0.2) 01/26/18 16:00 Absolute Neuts (auto) 4.75 10^3/uL (1.70-6.50) 01/26/18 16:00 Absolute Lymphs (auto) 2.04 10^3/uL (1.00-3.00) 01/26/18 16:00 Absolute Monos (auto) 0.41 10^3/uL (0.30-0.80) 01/26/18 16:00 Absolute Eos (auto) 0.01 10^3/uL (0.03-0.40) L 01/26/18 16:00 Absolute Basos (auto) 0.03 10^3/uL (0.02-0.10) 01/26/18 16:00 Absolute Nucleated RBC 0.00 10^3/uL (0-0.01) 01/26/18 16:00 Immature Gran % 0.5 % (0.0-1.1) 01/26/18 16:00 Immature Gran # 0.04 10^3/uL (0.00-0.10) 01/26/18 16:00 Sodium 141 mEq/L (135-145) 01/26/18 16:00 Potassium 4.6 mEq/L (3.3-5.0) 01/26/18 16:00 Chloride 105 mEq/L (97-110) 01/26/18 16:00 Carbon Dioxide 24 mEq/l (22-31) 01/26/18 16:00 Anion Gap 12 mEq/L (6-14) 01/26/18 16:00 BUN 10 mg/dL (7-23) 01/26/18 16:00 Creatinine 0.5 mg/dL (0.6-1.0) L 01/26/18 16:00 Estimated GFR > 60 01/26/18 16:00 Glucose 63 mg/dL (70-100) L 01/26/18 16:00 Calcium 9.8 mg/dL (8.5-10.4) 01/26/18 16:00 Lipase 204 IU/L (23-300) 01/26/18 16:00 Beta HCG, Qual NEGATIVE 01/26/18 16:00 Assessment & Plan Assessment: Dehydration (Acute) Syncope (Acute) Plan: Patient seen and evaluated with LALITA Sharpe, agree with her assessment and plan as outlined above. Please see separate note for further details.
[2018-01-26] MEDS: HYDROmorphONE/DILAUDID 1 MG/ML INJ IVP PRN ×2 (19:20→22:48)
[2018-01-26] MEDS: lamoTRIgine 100 MG TAB PO SCH (20:05)
[2018-01-26] MEDS: busPIRone 5 MG TAB PO SCH (20:05)
[2018-01-26] MEDS: oxyCODONE ORAL SOLUTION 10 MG/0.5 ML UDSYR PO PRN (20:06)
[2018-01-26] MEDS: NS 1,000 ML IV SCH (20:19)
--- NOTE | 2018-01-26 20:36 | CPEKG ---
Test Reason : OPEN Blood Pressure : / mmHG Vent. Rate : 112 BPM Atrial Rate : 116 BPM P-R Int : 152 ms QRS Dur : 075 ms QT Int : 340 ms P-R-T Axes : 043 -68 013 degrees QTc Int : 464 ms Sinus tachycardia Ventricular trigeminy LAD, consider left anterior fascicular block Confirmed by Marlon Combs ([id number]) on 01/26/2018 8:35:58 PM Referred By: Confirmed By:Marlon Combs
[2018-01-26] MEDS ORDERED: LIDOCAINE 4%/MENTHOL 1% PATCH TD PRN (21:00)
--- NOTE | 2018-01-26 22:15 | HOSPPROG ---
Hospitalist Progress Note Assessment/Plan: 22 yo F with complicated gastrointestinal history of intestinal dysmotility/ pseudo-obstruction s/p total colectomy with continent ileostomy placement, gastrectomy with Chandler-en-Y gastrojejunostomy, median arcuate ligament syndrome s /p release and numerous hospitalizations for dehydration and electrolyte disturbances discharged yesterday and returns now with syncope and fall on her back # syncope: occurred prior to admission in the setting of ongoing GI losses related to her dumping syndrome. No current sxs. Will monitor on tele but suspect this is all orthostatic versus vasovagal syncope # back pain: relatively mild, C spine and T spine CT reviewed, there are multiple old compression fractures some showing progression at t8/t9 the remainder appear to be stable. Pain remains relatively severe, will have pt/ot evaluate in am, if pain is not improving may need to consider repeat/further kypho # dumping syndrome: ongoing issue for her, she reports eating mostly simple carbs (crackers, white bread) as other foods cause her more issues with nausea, will get dietary consult. Multiple hospitalizations recently and patient is wondering about port placement to avoid dehydration. Recommend consult of Dr. Yao in the am when he is available. # recurrent n/v: as above # observation status Patient new to my care. Old records reviewed and summarized as above. Care plan reviewed with ER doctor as above. Care plan reviewed with LALITA Sharpe, please see her note for further details. Objective: Vital Signs Temp Pulse Resp BP Pulse Ox 36.6 C 85 12 106/72 100 01/26/18 18:02 01/26/18 18:02 01/26/18 18:02 01/26/18 18:02 01/26/18 18:02 01/25/18 01/26/18 01/27/18 05:59 05:59 05:59 Intake Total 1999 Balance 1999 ICD10 Worksheet Patient Problems: Problems Problem Status Onset Dehydration Acute Syncope Acute Abdominal abscess Acute Abdominal pain Acute Compression fracture of body of thoracic vertebra Acute Hypochloremia Acute Intractable vomiting Acute Near syncope Acute Shortness of breath Acute Volume depletion Acute
[2018-01-26] MEDS: PROMETHAZINE HCL 25 MG TAB PO PRN (22:43)
[2018-01-27] MEDS: oxyCODONE ORAL SOLUTION 10 MG/0.5 ML UDSYR PO PRN ×4 (02:48→22:35)
[2018-01-27] MEDS: NS 1,000 ML IV SCH ×2 (05:50→15:32)
[2018-01-27] MEDS: HYDROmorphONE/DILAUDID 1 MG/ML INJ IVP PRN ×5 (05:56→20:45)
[2018-01-27] MEDS: busPIRone 5 MG TAB PO SCH ×3 (09:38→20:44)
[2018-01-27] MEDS: MULTIVITAMINS 1 EACH TAB PO SCH (09:38)
[2018-01-27] MEDS: CHOLECALCIFEROL VIT D3 1,000 UNITS TAB PO SCH (09:38)
[2018-01-27] MEDS: lamoTRIgine 100 MG TAB PO SCH ×2 (09:39→20:44)
[2018-01-27] MEDS: PROMETHAZINE HCL 25 MG TAB PO PRN ×2 (09:47→17:21)
[2018-01-27] MEDS: DICYCLOMINE 10 MG CAP PO PRN ×2 (09:47→20:53)
[2018-01-27] MEDS: PATCH REMOVAL 1 EA PATCH TD SCH (09:50)
--- NOTE | 2018-01-27 13:29 | HOSPPROG ---
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 #Syncope: Consistent with orthostasis vs vasovagal. Tele with occasional PACs but nothing sustained. Low concern for PE. IVF. #Acute on chronic back pain: Some progression of T8/[address] , otherwise stable compression fractures elsewhere. IV dilaudid PRN. Will discuss with neurosurgery re: repeat kyphoplasty. #High output ostomy: C/f dumping syndrome. W/u last admit with GI PCR, HIDA negative. Monitor electrolytes. IVF. Patient interested in port placement to avoid future episodes/hospitalizations for dehydration. Discuss with PCP and Dr Yao. #Chronic abdominal pain: Continue home oxycodone. #Seizure d/o: Lamotrigine #Suspected osteoporosis: Not currently on treatment Dispo: Switch to inpatient as requiring IV pain medication and IVF for hydration. Subjective: Having moderate pain in back, denies numbness/tingling or weakness in legs. Still having quite a bit of output from ostomy. Interested in getting port to avoid dehydration. Objective: Vital Signs Temp Pulse Resp BP Pulse Ox 36.3 C 79 12 112/82 H 97 01/27/18 11:23 01/27/18 11:23 01/27/18 11:23 01/27/18 11:23 01/27/18 11:23 01/26/18 01/27/18 01/28/18 05:59 05:59 05:59 Intake Total 3301 Balance 3301 - Physical Exam Constitutional: no apparent distress, other (thin, chronically ill appearing) Eyes: PERRL, anicteric sclera, EOMI Ears, Nose, Mouth, Throat: moist mucous membranes, hearing normal, ears appear normal, no oral mucosal ulcers Cardiovascular: regular rate and rhythym, no murmur, rub, or gallop Respiratory: no respiratory distress, no rales or rhonchi, clear to auscultation Gastrointestinal: normoactive bowel sounds, soft, non-tender abdomen, no palpable masses, other (continent ostomy c/d/i) Genitourinary: no bladder fullness, no bladder tenderness, no renal bruits Skin: no rashes or abrasions, no fluctuance, no induration Musculoskeletal: full muscle strength, no muscle tenderness, normal joint ROM Neurologic: AAOx3, sensation intact bilaterally Psychiatric: interacting appropriately, not anxious, not encephalopathic, thought process linear ICD10 Worksheet Patient Problems: Problems Problem Status Onset Dehydration Acute Syncope Acute Abdominal abscess Acute Abdominal pain Acute Compression fracture of body of thoracic vertebra Acute Hypochloremia Acute Intractable vomiting Acute Near syncope Acute Shortness of breath Acute Volume depletion Acute
--- NOTE | 2018-01-27 15:31 | ASMTCMCOM ---
CM Note CM Note Notes: Pt is a 22 y/o female admitted for dehydration. Pt recently d/c from on 01/25/18 for intractable abdominal pain and vomiting. Pt is well known to [facility] w/ an extensive medical hx. Pt is current w/ [facility], RN and SW along w/ [facility]. CM to follow. Date Signed: 01/27/2018 03:30 PM Electronically Signed By:BRENDA Farah
--- NOTE | 2018-01-27 16:13 | PDMN ---
Medical Necessity Medical necessity: MCG: [facility] gastroenterology: other diseases of stomach and duodenum 2 days: high ostomy output c/w dumping syndrome, chronic abd pain, syncope , changed to INPT 01/27/18 for ongoing med nec. further monitoring and tx of electrolytes, IVF, IV pain , poss port placement -
[2018-01-27] MEDS: LORazepam 1 MG TAB PO PRN (20:53)
[2018-01-28] MEDS: HYDROmorphONE/DILAUDID 1 MG/ML INJ IVP PRN ×6 (01:00→22:03)
[2018-01-28] MEDS: NS 1,000 ML IV SCH ×2 (01:59→13:12)
[2018-01-28] MEDS: PROMETHAZINE HCL 25 MG TAB PO PRN (05:10)
[2018-01-28] MEDS: busPIRone 5 MG TAB PO SCH ×3 (06:02→19:51)
[2018-01-28] MEDS: oxyCODONE ORAL SOLUTION 10 MG/0.5 ML UDSYR PO PRN ×3 (09:42→16:56)
[2018-01-28] MEDS: DICYCLOMINE 10 MG CAP PO PRN ×2 (09:43→16:58)
[2018-01-28] MEDS: METHOCARBAMOL 750 MG TAB PO PRN ×2 (09:45→16:56)
[2018-01-28] MEDS: PATCH REMOVAL 1 EA PATCH TD SCH (09:56)
--- NOTE | 2018-01-28 10:22 | SOAPPROG ---
Downtime Inpatient MD Late Entry SOAP Note: Pateint seen and examined. New Thoracic compression fractures. Plan: 1)Consider kyphoplasty for these increased fractures. 2)Suggest endocrine evaluation to ensure optimal management of osteoporosis 3)Corrective deformity surgery not possible until osteoporosis is treated and resolved. -Stanley Ny MD
[2018-01-28] MEDS: CHOLECALCIFEROL VIT D3 1,000 UNITS TAB PO SCH (10:44)
[2018-01-28] MEDS: lamoTRIgine 100 MG TAB PO SCH ×2 (10:45→19:51)
[2018-01-28] MEDS: MULTIVITAMINS 1 EACH TAB PO SCH (10:46)
--- NOTE | 2018-01-28 11:11 | GCON ---
DATE OF CONSULTATION: 01/28/2018 REASON FOR CONSULTATION: New thoracic compression fractures and pain. HISTORY OF PRESENT ILLNESS: The patient is a 22-year-old female with a history of complicated gastro intestinal history of dysmotility, pseudoobstruction, and colectomy who also suffers from severe oste oporosis, likely secondary to the difficulties that she has had with her digestive tract. She has a known history of severe osteoporosis and has not yet started medication for this, but she has discuss Forteo treatment with a physician previously. She has known horrible thoracic kyphosis and is seein g Dr. Juarez, as well as Dr. Hawley for this osteoporosis and discussed corrective surgery. She is c urrently not a candidate for that given the severe osteoporosis, and she recently underwent kyphoplas ty at T5 and T6 by Dr. Gael ward at [facility] to help with painful compression fractu res and she comes in with increasing thoracic pain and a CT scan, which shows advancing thoracic comp ression fractures of T8, T9. T7 and T10 were relatively stable. PAST MEDICAL HISTORY: Significant for gastrointestinal dysmotility, pseudoobstruction, colectomy, il eostomy, gastrectomy, Chandler-en-Y gastrojejunostomy, median arcuate ligament syndrome status post relea se, kyphoplasty, dehydration, electrolyte disturbances, epilepsy, superior mesenteric artery syndrome , gastroparesis, and vertebral compression fractures. ALLERGIES: Are to milk and mustard. MEDICATIONS: Include multivitamins, Lamictal, oxycodone, vitamin D3. FAMILY HISTORY: Significant for venous thromboembolism. SOCIAL HISTORY: She does not smoke, use alcohol, or drugs. She lives with a fiance and 2 other room mates, and she is [employer] student. PHYSICAL EXAM: MUSCULOSKELETAL/NEURO: She is an extremely thin female who does appear fra il with a very prominent thoracic compression deformity. Strength testing in her plantar flexors and tibialis anterior was 5/5. Her sensation is intact in her legs. She has thoracic percussive tender ness in the apex of her thoracic kyphosis. VITAL SIGNS: Blood pressure 101/68, temperature 36.7, re spiratory rate 12, saturation 98%, heart rate was 69. DIAGNOSTIC REVIEW: CT scan of the cervical spine demonstrated no evidence of acute fracture or injur y. CT scan of thoracic spine demonstrates stable kyphoplasties at T5 and T6. There are stable osteoporo tic compression deformities of T7 and T10. There is some advancement of her thoracic compression def ormities at T8 and T9. ASSESSMENT: The patient is a 22-year-old with terrible osteoporotic compression fractures of the tho racic spine and this is not currently amenable to surgical correction. I did explain to her that in time, she may need to have a corrective surgery for her kyphosis, but given the severe osteoporosis, she would be a great risk of surgical failure. She could consider a kyphoplasties of the new T8, T9 deformities and this could be done by Dr. Mayo here [facility]. This has a chance of improving her discomfort. I do think that she will ultimately have progression of the fractures at T 7 and T10, and I have suggested that she consider consulting with an electric range servicer to maximize and optimize her treatment for osteoporosis. We thank you for this consultation. /[id number]/MODL
--- NOTE | 2018-01-28 15:14 | ASMTCMCOM ---
CM Note CM Note Notes: CM spoke to Luciana w/ [facility]. Luciana would like to see if a nutritional consult can be ordered. Luciana is suspecting that pt is purposefully not eating. NIKKY communicated this w/ Dr. Reyes. CM to follow. Plan: [facility]; RN, SW with [facility] Date Signed: 01/28/2018 03:14 PM Electronically Signed By:BRENDA Farah
--- NOTE | 2018-01-28 17:02 | HOSPPROG ---
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 #Acute on chronic back pain: Some progression of T8/[address] , otherwise stable compression fractures elsewhere. Neuro intact. Consulted neurosurgery, recommend kyphoplasty. Consult IR for this, NPO at midnight. Continue IV dilaudid PRN in meantime. #High output ostomy: C/f dumping syndrome. W/u last admit with GI PCR, HIDA negative. Monitor electrolytes. IVF. Patient interested in port placement to avoid future episodes/hospitalizations for dehydration; I strongly recommended against this. #Osteoporosis: In setting of malabsorption and amenorrhea. She is on vit D and calcium supplements and is vitamin D replete. She needs treatment for this; not candidate for oral bisphosphonate due to gastrectomy. I discussed with Dr Machado of endocrinology who recommends that patient follow up with Dr Dunn in endo clinic. I placed this referral in the Discharge Plan tab. #Syncope: Consistent with orthostasis vs vasovagal. Tele with occasional PACs but nothing sustained. Low concern for PE. IVF. #Chronic abdominal pain: Continue home oxycodone. #Seizure d/o: Lamotrigine #Primary amenorrhea: Patient reports never having menstrual cycle. Follow up with endocrine. #Severely low BMI: Nutrition consulted Dispo: Continue inpatient as requiring IV pain medication and IVF for hydration. Possible kyphoplasty in AM. Subjective: Still with significant back pain, denies leg weakness/numbness. Had 3L output from ostomy yesterday. Objective: Vital Signs Temp Pulse Resp BP Pulse Ox 36.3 C 72 14 103/71 97 01/28/18 16:00 01/28/18 16:00 01/28/18 16:00 01/28/18 16:00 01/28/18 16:00 Laboratory Results 01/28/18 05:05 01/27/18 01/28/18 01/29/18 05:59 05:59 05:59 Intake Total 2292 Output Total 3000 Balance -708 - Physical Exam Constitutional: cachectic Eyes: PERRL, anicteric sclera, EOMI Ears, Nose, Mouth, Throat: moist mucous membranes, hearing normal, ears appear normal, no oral mucosal ulcers Cardiovascular: regular rate and rhythym, no murmur, rub, or gallop Respiratory: no respiratory distress, no rales or rhonchi, clear to auscultation Gastrointestinal: normoactive bowel sounds, soft, non-tender abdomen, no palpable masses, other (continent ostomy c/d/i) Genitourinary: no bladder fullness, no bladder tenderness, no renal bruits Skin: no rashes or abrasions, no fluctuance, no induration Musculoskeletal: full muscle strength, no muscle tenderness, normal joint ROM Neurologic: AAOx3, sensation intact bilaterally Psychiatric: interacting appropriately, not anxious, not encephalopathic, thought process linear ICD10 Worksheet Patient Problems: Problems Problem Status Onset Dehydration Acute Syncope Acute Abdominal abscess Acute Abdominal pain Acute Compression fracture of body of thoracic vertebra Acute Hypochloremia Acute Intractable vomiting Acute Near syncope Acute Shortness of breath Acute Volume depletion Acute
[2018-01-28] MEDS: LORazepam 1 MG TAB PO PRN (19:51)
[2018-01-29] MEDS: HYDROmorphONE/DILAUDID 1 MG/ML INJ IVP PRN ×8 (00:40→23:58)
[2018-01-29] MEDS: NS 1,000 ML IV SCH ×3 (00:42→21:49)
[2018-01-29] MEDS: busPIRone 5 MG TAB PO SCH ×3 (06:25→20:41)
[2018-01-29] MEDS: lamoTRIgine 100 MG TAB PO SCH ×2 (08:29→20:41)
[2018-01-29] MEDS: CHOLECALCIFEROL VIT D3 1,000 UNITS TAB PO SCH (08:31)
[2018-01-29] MEDS: MULTIVITAMINS 1 EACH TAB PO SCH (08:31)
[2018-01-29] MEDS: PATCH REMOVAL 1 EA PATCH TD SCH (08:39)
[2018-01-29] MEDS: PROMETHAZINE HCL 25 MG TAB PO PRN (11:43)
[2018-01-29] MEDS: oxyCODONE ORAL SOLUTION 10 MG/0.5 ML UDSYR PO PRN ×2 (13:08→19:29)
--- NOTE | 2018-01-29 14:03 | HOSPPROG ---
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 # ongoing high ostomy output and problems with nausea vomiting * Anti motility agents and nausea medicines have had very limited success at managing this for her * Approaching her physiology from a different standpoint will be required as she repeatedly ends up coming to the hospital unable to main hydration at home; she does notice that fats are not absorbed if she eats them. I wonder if she has a malabsorption that could be treated either with pancreatic enzymes or another approach; also wonder what else she is not absorbing * Previous assessment includes negative GI PCR, negative HIDA scan #Ongoing pain at thoracic spine with previous compression fractures (T5-9 from a seizure in September) and severe kyphosis, as well as prior chronic history of scoliosis with pain due to that * T5 and 6 previously treated with kyphoplasties * MRI does not show evidence of marrow edema or healing that would be amenable to kyphoplasty * She has been seen in the past by Clau Ny and Marleen who feel her spine is 2 brittle to do a surgery with rods at present #Osteoporosis: In setting of malabsorption and amenorrhea. * She is on vit D and calcium supplements and is vitamin D replete. * not candidate for oral bisphosphonate due to gastrectomy. * Dr Machado of endocrinology who recommends that patient follow up with Dr Dunn in endo clinic. Referral placed in the Discharge Plan tab. #Syncope: Consistent with orthostasis vs vasovagal. Tele with occasional PACs but nothing sustained. #Chronic abdominal pain: Continue home oxycodone at usual dose. #Seizure d/o: Lamotrigine #Primary amenorrhea: Patient reports never having menstrual cycle. Follow up with endocrine. #Severely low BMI: Nutrition consulted * As above her nausea and ostomy output issues need to be addressed. Also she should be more formally assessed for malabsorption and see if any specific treatment may be helpful PLANS: * At this time start scheduled IV antiemetics due to ongoing several times per day nausea and vomiting * Review her physiology with her assistant professor nurse education in [place], Dr. Otto, and review potential options for managing her nausea and high output in absorption issues * I will review her MRI spine with the Neurosurgery team; I wonder if she might be helped by traction therapy SUBJECTIVE: Still having same high ostomy output Having nausea at least 4 times daily here despite use of Phenergan, with dry heaves and vomiting Unchanged back pain OBJECTIVE Vitals reviewed: All stable, no fever Exam: alert oriented, looks fatigued and a bit uncomfortable skin warm dry color ok resps not labored lungs clear BSs heart regular abd soft nondistended nontender, bowel sounds present limbs warm, no edema Signs at least moderate malnutrition present iv site ok Imaging: I reviewed the images of yesterday's MRI thoracic spine and compared that image with previous CT scans she has had over the past year that show her spine. At this time she has no evidence of marrow edema or other signs that there is ongoing healing from her compression fractures that would indicate these would be amenable to kyphoplasty therapy, I reviewed this with our interventional radiology team today. Objective: Vital Signs Temp Pulse Resp BP Pulse Ox 36.8 C 66 17 113/82 H 98 01/29/18 11:34 01/29/18 11:34 01/29/18 11:34 01/29/18 11:34 01/29/18 08:00 Laboratory Results 01/28/18 05:05 01/28/18 01/29/18 01/30/18 06:59 06:59 06:59 Intake Total 2292 1763 Output Total 3000 Balance -708 1763 - Time Spent With Patient Time Spent with Patient: greater than 35 minutes Time Spent with Patient: Greater than 35 minutes spent on this patients care, greater than 50% of time spent counseling, educating, and coordinating care regarding the above mentioned plan. ICD10 Worksheet Patient Problems: Problems Problem Status Onset Dehydration Acute Syncope Acute Abdominal abscess Acute Abdominal pain Acute Compression fracture of body of thoracic vertebra Acute Hypochloremia Acute Intractable vomiting Acute Near syncope Acute Shortness of breath Acute Volume depletion Acute
--- NOTE | 2018-01-29 14:19 | ASMTCMCOM ---
CM Note CM Note Notes: CM met with pt. Pt will be d/cing home with [facility]. She is requesting assistance in finding someone for pain management. CM recommended that she begin by looking up who her insurance, [employer], has in-network. Contact information on [facility] and specifically, Sarah Jacobs, was provided to her. D/C Plan: Home with [facility] MICAELA/RN and [facility] Date Signed: 01/29/2018 02:18 PM Electronically Signed By:Yolanda Oro
[2018-01-29] MEDS: DICYCLOMINE 10 MG CAP PO PRN (14:44)
[2018-01-29] MEDS: PROMETHAZINE HCL 25 MG/ML INJ IVP SCH ×2 (17:37→23:50)
[2018-01-29] MEDS: METHOCARBAMOL 750 MG TAB PO PRN (21:50)
[2018-01-30] MEDS: DICYCLOMINE 10 MG CAP PO PRN ×2 (02:52→10:48)
[2018-01-30] MEDS: HYDROmorphONE/DILAUDID 1 MG/ML INJ IVP PRN ×6 (02:53→23:03)
[2018-01-30] MEDS: PROMETHAZINE HCL 25 MG/ML INJ IVP SCH ×4 (06:09→23:03)
[2018-01-30] MEDS: HYDROmorphONE/DILAUDID 2 MG/ML INJ IVP PRN ×2 (10:47→13:39)
[2018-01-30] MEDS: MULTIVITAMINS 1 EACH TAB PO SCH (10:48)
[2018-01-30] MEDS: busPIRone 5 MG TAB PO SCH ×4 (10:48→20:19)
[2018-01-30] MEDS: lamoTRIgine 100 MG TAB PO SCH ×2 (10:49→20:20)
[2018-01-30] MEDS: CHOLECALCIFEROL VIT D3 1,000 UNITS TAB PO SCH (10:50)
[2018-01-30] MEDS: PATCH REMOVAL 1 EA PATCH TD SCH (10:52)
[2018-01-30] MEDS: oxyCODONE ORAL SOLUTION 10 MG/0.5 ML UDSYR PO PRN (12:26)
--- NOTE | 2018-01-30 14:17 | ASMTCMCOM ---
CM Note CM Note Notes: CM contacted by Tonja from [facility]. Tonja inquired as to whether pt would be discharged this weekend. It was confirmed with Tonja that upon d/c current reports will be sent and a phone call made to alert them to pt returning home. D/C Plan: Home with [facility] RN/SW and [facility] Date Signed: 01/30/2018 02:12 PM Electronically Signed By:Yolanda Oro
--- NOTE | 2018-01-30 17:49 | HOSPPROG ---
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 # ongoing high ostomy output and problems with nausea vomiting * She is reluctant to try anti motility agents as she did have an episode of pseudo-obstruction from Imodium and has long history of motility disorder * I did review her case with Dr. Diaz today. Here in our hospital we have checked for infection but we have not done other stool or ostomy output studies to look for malabsorption, acid, other indicators of specific physiology * May be reasonable to try Questran for her and if not try other anti motility agents or lower dose Imodium #Ongoing pain at thoracic spine with previous compression fractures (T5-9 from a seizure in September) and severe kyphosis, as well as prior chronic history of scoliosis with pain due to that * T5 and 6 previously treated with kyphoplasties * MRI does not show evidence of marrow edema or healing that would be amenable to kyphoplasty * She has been seen in the past by Clau Ny and Marleen who feel her spine is 2 brittle to do a surgery with rods at present #Osteoporosis: In setting of malabsorption and amenorrhea. * She is on vit D and calcium supplements and is vitamin D replete. * not candidate for oral bisphosphonate due to gastrectomy. * Dr Machado of endocrinology who recommends that patient follow up with Dr Dunn in endo clinic. Referral placed in the Discharge Plan tab. #Syncope: Consistent with orthostasis vs vasovagal. Tele with occasional PACs but nothing sustained. #Chronic abdominal pain: Continue home oxycodone at usual dose. #Seizure d/o: Lamotrigine #Primary amenorrhea: Patient reports never having menstrual cycle. Follow up with endocrine. #Severely low BMI: Nutrition consulted * As above her nausea and ostomy output issues need to be addressed. Also she should be more formally assessed for malabsorption and see if any specific treatment may be helpful PLANS: * Continue scheduled IV antiemetics due to ongoing several times per day nausea and vomiting * Dr ochoa his will see patient tomorrow; I will review with her, consider stool studies or other testing that may be helpful to determine what treatment might help her nausea and/or ostomy output * I will review her MRI spine with the Neurosurgery team; I wonder if she might be helped by traction therapy SUBJECTIVE: Still having same high ostomy output Still with a lot of nausea but less vomiting today, oral intake remains very poor Unchanged back pain Did do more walking today OBJECTIVE Vitals reviewed: All stable, no fever Exam: alert oriented, looks fatigued and a bit uncomfortable skin warm dry color ok resps not labored lungs clear BSs heart regular abd soft nondistended nontender, bowel sounds present limbs warm, no edema Signs at least moderate malnutrition present iv site ok Objective: Vital Signs Temp Pulse Resp BP Pulse Ox 36.6 C 73 18 106/70 96 01/30/18 16:00 01/30/18 16:00 01/30/18 16:00 01/30/18 16:00 01/30/18 16:00 Laboratory Results 01/28/18 05:05 01/29/18 01/30/18 01/31/18 06:59 06:59 06:59 Intake Total 1763 1065 Balance 1763 1065 ICD10 Worksheet Patient Problems: Problems Problem Status Onset Dehydration Acute Syncope Acute Abdominal abscess Acute Abdominal pain Acute Compression fracture of body of thoracic vertebra Acute Hypochloremia Acute Intractable vomiting Acute Near syncope Acute Shortness of breath Acute Volume depletion Acute
[2018-01-30] MEDS: NS 1,000 ML IV SCH (20:26)
[2018-01-31] MEDS: HYDROmorphONE/DILAUDID 1 MG/ML INJ IVP PRN ×8 (01:33→22:50)
[2018-01-31] MEDS: LORazepam 1 MG TAB PO PRN (02:05)
[2018-01-31] MEDS: oxyCODONE ORAL SOLUTION 10 MG/0.5 ML UDSYR PO PRN ×2 (02:09→16:43)
[2018-01-31] MEDS: busPIRone 5 MG TAB PO SCH ×3 (06:10→20:23)
[2018-01-31] MEDS: PROMETHAZINE HCL 25 MG/ML INJ IVP SCH ×3 (06:11→18:18)
[2018-01-31] MEDS: NS 1,000 ML IV SCH ×2 (06:37→15:17)
[2018-01-31] MEDS: CHOLECALCIFEROL VIT D3 1,000 UNITS TAB PO SCH (07:41)
[2018-01-31] MEDS: MULTIVITAMINS 1 EACH TAB PO SCH (07:42)
[2018-01-31] MEDS: lamoTRIgine 100 MG TAB PO SCH ×2 (07:42→20:23)
[2018-01-31] MEDS: PATCH REMOVAL 1 EA PATCH TD SCH (07:53)
--- NOTE | 2018-01-31 10:19 | PDCONSULT ---
Dental Hygienist Mobile Coordinator Note: GI Consult note Full note dictated R REC 24 stool collection for fecal fat Stool elastase Nutrition consult Trial of Questran 1/2 pack BID and taper up as tolerated Glutamine 5 mg TID Will ask hospitalist to add orders if they agree (I am unable to input orders at this time)
--- NOTE | 2018-01-31 13:20 | GCON ---
DATE OF CONSULTATION: 01/31/2018 CHIEF COMPLAINT: Diarrhea. I am asked to see this patient in consultation by Dr. Jordan for chief complaint of diarrhea with jorge sea and vomiting. HPI: Patient is a very complex 22-year-old with history of colonic inertia, underwent a colectomy ar 2014 in [place]. She has had multiple complications including abscess and small-bowel ob structions that for a period of time she had a venting G-tube and a feeding J-tube. However, these w ere removed this summer. She has now been having issues with significant diarrhea resulting in dehyd ration with multiple admissions, although has issues with nausea and vomiting. She does not want to take Imodium because of fear of constipation and obstruction. With this she has had no blood in her stools, no melena, no fevers or chills. She does have some abdominal pain. Since admission she stat es her nausea and vomiting is much better; still having some diarrhea. Also was found to have recent thoracic spine fractures. She underwent an upper and lower endoscopy with our practice last year th at did not show any cause for her diarrhea. At that point, it was recommended that she seek further evaluation at a tertiary center due to her complexity. She is now being followed by Dr. Otto at [place]. ALLERGIES: Milk and mustard. MEDICATIONS ON ADMISSION: Oxycodone, Phenergan, Lamictal, Robaxin, Ativan, Bentyl, BuSpar, and vitam in D. PAST MEDICAL HISTORY: Include GI motility disorder, status post colectomy, history of diarrhea, abdo mika pain, nausea, osteoporosis with recent compression fractures, history of abdominal abscess mg ier this year, dehydration. SOCIAL HISTORY: Patient is not a smoker. FAMILY HISTORY: There is a family history for celiac sprue in an aunt. REVIEW OF SYSTEMS: I performed a complete review of systems which is negative except for the pertine nt positives and negatives noted above in the HPI. PHYSICAL EXAM: VITAL SIGNS: She is afebrile at 36.6, BP 98/71, pulse 83. GENERAL: She is alert an d oriented. HEENT: Eyes no scleral icterus, no oral lesions. CARDIOVASCULAR: Regular rhythm. JOY ST: Clear to auscultation. ABDOMEN: Tender. Multiple surgical scars. No distention. No rebound. NEUROLOGIC: Nonfocal. SKIN: No rashes. LABORATORY DATA: No anemia. Hematocrit 44.5 with white count of 7, platelets 418. BUN and creatini ne 4 and 0.8. Sodium 138 potassium 4.2. A very complex patient with recurrent bouts of nausea and vomiting and diarrhea resulting in dehydrat ion. The patient has had extensive workup including upper and lower endoscopies recently. She is no w followed by a computer installation engineer in [place]. She states that she was tested for SIBO, which w as negative. Also received antibiotics, which did not help. The patient was also tested for celiac sprue, which was negative. Other considerations would include malabsorptive process, pancreatic insu fficiency, motility disorder and functional overlay. PLAN: I would recommend we do a 24-hour stool collection for fecal fat. Would check stool elastase. Can check stool electrolytes with potassium, sodium, and osmoles. I agree with trial of Questran a s patient does not want to do Imodium, although would taper up slowly. Would recommend one-half pack of Questran twice daily and can taper up to a full pack three times daily as tolerated. I would als o recommend glutamine 5 mg three times daily. Recommend nutrition consult. If she does not improve, I think she would be appropriate for referral to a tertiary center. This was also recommended to th e patient at her last office visit with our group. I will defer orders to the hospitalist as I am un able at this time to enter these recommendations into the orders. /[id number]/MODL
--- NOTE | 2018-01-31 16:16 | HOSPPROG ---
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 # ongoing high ostomy output and problems with nausea vomiting * She is reluctant to try anti motility agents as she did have an episode of pseudo-obstruction from Imodium and has long history of motility disorder * requiring ongoing high dose antiemetics (getting phenergan 25 iv qid and frequent benadryl doses here) * ? why she has such high ileostomy output; Dr Zamora has recommended some stool studies and a trial of questran and glutamine tx #Ongoing pain at thoracic spine with previous compression fractures (T5-9 from a seizure in September) and severe kyphosis, as well as prior chronic history of scoliosis with pain due to that * T5 and 6 previously treated with kyphoplasties * MRI does not show evidence of marrow edema or healing that would be amenable to kyphoplasty * She has been seen in the past by Clau Ny and Marleen who feel her spine is 2 brittle to do a surgery with rods at present * waiting for neurosurgery to recommend any other treatment options (? traction , brace, stimulator implant, or other?) #Osteoporosis: In setting of malabsorption and amenorrhea. * She is on vit D and calcium supplements and is vitamin D replete. * not candidate for oral bisphosphonate due to gastrectomy. * reviewed w Dr Machado of endocrinology who recommends that patient follow up with Dr Dunn in endo clinic. Referral placed in the Discharge Plan tab. #Syncope at home, likely due to dehydration from gi issues, no recurrent sxs here #Chronic abdominal pain: Continue home oxycodone at usual dose. #Seizure d/o: Lamotrigine #Primary amenorrhea: Patient reports never having menstrual cycle. Follow up with endocrine. #Severely low BMI: Nutrition consulted * As above her nausea and ostomy output issues need to be addressed. Also she should be more formally assessed for malabsorption and see if any specific treatment may be helpful PLANS: * Continue scheduled IV antiemetics due to ongoing several times per day nausea and vomiting * appreciate Dr Zamora consult * stool studies ordered for elastace; will start 24 hour fecal fat collection in am * have ordered initial dose of questran, titrate up to higher doses as needed/ tolerated * have ordered glutamine as recommended by Dr Zamora * have reviewed her MRI spine with the Neurosurgery PA today, they will advise us/pt as to recommended treatment options for her kyphotic deformity of spine SUBJECTIVE: Still having same high ostomy output Still with a lot of nausea but less vomiting today, oral intake remains very poor Unchanged back pain ambulating ok OBJECTIVE Vitals reviewed: All stable, no fever Exam: alert oriented skin warm dry color ok resps not labored lungs clear BSs heart regular abd soft nondistended mildly tender, bowel sounds present; stoma looks ok limbs warm, no edema Signs of at least moderate malnutrition present iv site ok Objective: Vital Signs Temp Pulse Resp BP Pulse Ox 36.7 C 83 12 98/79 L 94 01/31/18 15:07 01/31/18 15:07 01/31/18 15:07 01/31/18 15:07 01/31/18 15:07 Laboratory Results 01/28/18 05:05 01/30/18 01/31/18 02/01/18 06:59 06:59 06:59 Intake Total 1065 1929 Balance 1065 1929 ICD10 Worksheet Patient Problems: Problems Problem Status Onset Dehydration Acute Syncope Acute Abdominal abscess Acute Abdominal pain Acute Compression fracture of body of thoracic vertebra Acute Hypochloremia Acute Intractable vomiting Acute Near syncope Acute Shortness of breath Acute Volume depletion Acute
--- NOTE | 2018-01-31 16:40 | NEUSURGPN ---
Assessment/Plan: Reviewed patient and MRI with Dr. Dyer this afternoon at the request of hospitalist service. He states that at this time would focus on improving bone quality with endocrine/rheumatology. Would not recommend bracing at this time. We encourage pt engage in spine focused PT to work on strengthening/posture. No surgical recommendations from our team. Please contact NS service with any additional questions or concerns. - Physician Discussed Patient with Dr.: Dyer Neurosurgery Physical Exam - Vitals, I&O, Labs I and O 01/30/18 01/31/18 02/01/18 05:59 05:59 05:59 Intake Total 1065 1929 Balance 1065 1929 Intake: IV Intake (ml) 1065 1929 Other: Intake Quantity Yes Yes Sufficient Output Comment Toilet out of continent urostomy Number of Stools Toilet 8 Vital Signs Temp Pulse Resp BP Pulse Ox 36.7 C 83 12 98/79 L 94 01/31/18 15:07 01/31/18 15:07 01/31/18 15:07 01/31/18 15:07 01/31/18 15:07 Laboratory Results 01/28/18 05:05 ICD10 Worksheet Patient Problems: Problems Problem Status Onset Dehydration Acute Syncope Acute Abdominal abscess Acute Abdominal pain Acute Compression fracture of body of thoracic vertebra Acute Hypochloremia Acute Intractable vomiting Acute Near syncope Acute Shortness of breath Acute Volume depletion Acute
[2018-01-31] MEDS: diphenhydrAMINE 25 MG CAP PO PRN (16:42)
[2018-01-31] MEDS: GLUTAMINE (GLUTASOLVE) 1 EACH PKT PO SCH ×2 (18:18→22:49)
[2018-01-31] MEDS: METHOCARBAMOL 750 MG TAB PO PRN (20:22)
[2018-01-31] MEDS: CHOLESTYRAMINE/SUCROSE 4 GM PKT PO SCH (21:25)
[2018-02-01] MEDS: HYDROmorphONE/DILAUDID 1 MG/ML INJ IVP PRN ×9 (00:32→21:35)
[2018-02-01] MEDS: PROMETHAZINE HCL 25 MG/ML INJ IVP SCH ×5 (00:32→23:25)
[2018-02-01] MEDS: NS 1,000 ML IV SCH ×2 (01:09→11:24)
[2018-02-01] MEDS: busPIRone 5 MG TAB PO SCH ×3 (06:00→20:37)
[2018-02-01] MEDS: MULTIVITAMINS 1 EACH TAB PO SCH (09:56)
[2018-02-01] MEDS: lamoTRIgine 100 MG TAB PO SCH ×2 (09:56→20:37)
[2018-02-01] MEDS: CHOLECALCIFEROL VIT D3 1,000 UNITS TAB PO SCH (09:56)
[2018-02-01] MEDS: GLUTAMINE (GLUTASOLVE) 1 EACH PKT PO SCH ×3 (09:59→20:41)
[2018-02-01] MEDS: PATCH REMOVAL 1 EA PATCH TD SCH (10:23)
[2018-02-01] MEDS: oxyCODONE ORAL SOLUTION 10 MG/0.5 ML UDSYR PO PRN ×3 (10:59→23:25)
[2018-02-01] MEDS: CHOLESTYRAMINE/SUCROSE 4 GM PKT PO SCH ×2 (12:19→15:01)
--- NOTE | 2018-02-01 16:59 | HOSPPROG ---
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 ongoing high ostomy output and problems with nausea vomiting * She is reluctant to try anti motility agents as she did have an episode of pseudo-obstruction from Imodium and has long history of motility disorder * requiring ongoing high dose antiemetics (getting phenergan 25 iv qid and frequent benadryl doses here) * questran and glutamine started * stool elastase pending Ongoing pain at thoracic spine with previous compression fractures (T5-9 from a seizure in September) and severe kyphosis, as well as prior chronic history of scoliosis with pain due to that * T5 and 6 previously treated with kyphoplasties * MRI does not show evidence of marrow edema or healing that would be amenable to kyphoplasty * She has been seen in the past by Clau Ny and Marleen who feel her spine is 2 brittle to do a surgery with rods at present * neurosurgery suggests medical rx of bone * i recommend referral to bone and metabolism clinic Osteoporosis: In setting of malabsorption and amenorrhea. * She is on vit D and calcium supplements and is vitamin D replete. * not candidate for oral bisphosphonate due to gastrectomy. * reviewed w Dr Machado of endocrinology who recommends that patient follow up with Dr Dunn in endo clinic. Referral placed in the Discharge Plan tab. Syncope at home, likely due to dehydration from gi issues, no recurrent sxs here Chronic abdominal pain: Continue home oxycodone at usual dose. Seizure d/o: Lamotrigine Primary amenorrhea: Patient reports never having menstrual cycle. Follow up with endocrine. Severely low BMI: Nutrition consulted * As above her nausea and ostomy output issues need to be addressed. Also she should be more formally assessed for malabsorption and see if any specific treatment may be helpful Subjective: case d/w dr mckeon. tolerating questran, no change in ostomy output Objective: Vital Signs Temp Pulse Resp BP Pulse Ox 36.3 C 83 16 102/71 99 02/01/18 16:15 02/01/18 16:15 02/01/18 16:15 02/01/18 16:15 02/01/18 16:15 Laboratory Results 01/28/18 05:05 01/31/18 02/01/18 02/02/18 05:59 05:59 05:59 Intake Total 1928 1739 Balance 1928 1739 - Physical Exam Constitutional: no apparent distress Eyes: PERRL, anicteric sclera Ears, Nose, Mouth, Throat: moist mucous membranes, hearing normal Cardiovascular: regular rate and rhythym, no murmur, rub, or gallop Respiratory: no respiratory distress, no rales or rhonchi Gastrointestinal: normoactive bowel sounds, soft, non-tender abdomen Genitourinary: no bladder fullness, No owen in urethra Skin: warm, normal color Musculoskeletal: no muscle tenderness Neurologic: AAOx3 ICD10 Worksheet Patient Problems: Problems Problem Status Onset Dehydration Acute Syncope Acute Abdominal abscess Acute Abdominal pain Acute Compression fracture of body of thoracic vertebra Acute Hypochloremia Acute Intractable vomiting Acute Near syncope Acute Shortness of breath Acute Volume depletion Acute
[2018-02-01] MEDS: diphenhydrAMINE 25 MG CAP PO PRN (17:04)
[2018-02-01] MEDS: DICYCLOMINE 10 MG CAP PO PRN (21:36)
[2018-02-02] MEDS: CHOLESTYRAMINE/SUCROSE 4 GM PKT PO SCH ×5 (00:11→21:24)
[2018-02-02] MEDS ORDERED: D50W 25 GM/50 ML SYR IVP ONE (00:28)
[2018-02-02] MEDS: HYDROmorphONE/DILAUDID 1 MG/ML INJ IVP PRN ×6 (02:36→23:30)
[2018-02-02] MEDS: busPIRone 5 MG TAB PO SCH ×3 (06:20→21:22)
[2018-02-02] MEDS: oxyCODONE ORAL SOLUTION 10 MG/0.5 ML UDSYR PO PRN ×3 (06:20→19:16)
[2018-02-02] MEDS ORDERED: HYDROmorphONE/DILAUDID 4 MG TAB PO ONE (06:49)
[2018-02-02] MEDS ORDERED: HALOPERIDOL LACT 5 MG/ML INJ IM SCH (07:00)
[2018-02-02] MEDS: PROMETHAZINE HCL 25 MG/ML INJ IVP SCH ×4 (07:25→23:30)
[2018-02-02] MEDS ORDERED: ALTEPLASE 2 MG VIAL IVP PRN (07:39)
[2018-02-02] MEDS: CHOLECALCIFEROL VIT D3 1,000 UNITS TAB PO SCH ×3 (08:23→16:45)
[2018-02-02] MEDS: lamoTRIgine 100 MG TAB PO SCH ×2 (08:23→21:22)
[2018-02-02] MEDS: MULTIVITAMINS 1 EACH TAB PO SCH ×3 (08:23→16:45)
[2018-02-02] MEDS: GLUTAMINE (GLUTASOLVE) 1 EACH PKT PO SCH ×4 (08:26→23:30)
[2018-02-02] MEDS: PATCH REMOVAL 1 EA PATCH TD SCH (11:33)
--- NOTE | 2018-02-02 12:21 | SOAPPROG ---
SOAP Progress Note Assessment/Plan: Assessment: Diarrhea overall much better with Questran N/V Back pain Plan:Await malabsorption w/u Check AM cortisol Continue Questran appears to be helping Defer pain management to hospitalist 02/02/18 12:19 Subjective: CC diarrhea Pt notes that gut sxm are better but c/o back pain Objective: Vital Signs Temp Pulse Resp BP Pulse Ox 36.2 C 86 14 87/48 L 94 02/02/18 08:00 02/02/18 08:00 02/02/18 08:00 02/02/18 08:00 02/02/18 08:00 Laboratory Results 01/28/18 05:05 02/01/18 02/02/18 02/03/18 05:59 05:59 05:59 Intake Total 1740 1176 Output Total 2650 Balance 1740 -1474 Physical Exam - Physical Exam General Appearance: alert Respiratory: lungs clear Cardiac/Chest: regular rate, rhythm Abdomen: non-tender, soft ICD10 Worksheet Patient Problems: Problems Problem Status Onset Dehydration Acute Syncope Acute Abdominal abscess Acute Abdominal pain Acute Compression fracture of body of thoracic vertebra Acute Hypochloremia Acute Intractable vomiting Acute Near syncope Acute Shortness of breath Acute Volume depletion Acute
[2018-02-02] MEDS: diphenhydrAMINE 25 MG CAP PO PRN ×2 (12:30→20:06)
--- NOTE | 2018-02-02 16:38 | HOSPPROG ---
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 ongoing high ostomy output and problems with nausea vomiting * She is reluctant to try anti motility agents as she did have an episode of pseudo-obstruction from Imodium and has long history of motility disorder * requiring ongoing high dose antiemetics (getting phenergan 25 iv qid and frequent benadryl doses here) * questran and glutamine started w sig improvement in sx * stool elastase pending, am cortisol pending Ongoing pain at thoracic spine with previous compression fractures (T5-9 from a seizure in September) and severe kyphosis, as well as prior chronic history of scoliosis with pain due to that * T5 and 6 previously treated with kyphoplasties * MRI does not show evidence of marrow edema or healing that would be amenable to kyphoplasty * She has been seen in the past by Clau Ny and Marleen who feel her spine is 2 brittle to do a surgery with rods at present * neurosurgery suggests medical rx of bone * i recommend referral to bone and metabolism clinic I am asking IR about a potential nerve block Osteoporosis: In setting of malabsorption and amenorrhea. * She is on vit D and calcium supplements and is vitamin D replete. * not candidate for oral bisphosphonate due to gastrectomy. * reviewed w Dr Machado of endocrinology who recommends that patient follow up with Dr Dunn in endo clinic. Referral placed in the Discharge Plan tab. Syncope at home, likely due to dehydration from gi issues, no recurrent sxs here Chronic abdominal pain: Continue home oxycodone at usual dose. Seizure d/o: Lamotrigine Primary amenorrhea: Patient reports never having menstrual cycle. Follow up with endocrine. Severely low BMI: Nutrition consulted * As above her nausea and ostomy output issues need to be addressed. Also she should be more formally assessed for malabsorption and see if any specific treatment may be helpful Subjective: case d/w dr lorenzo. elen inquiring about nerve block for back pain Objective: Vital Signs Temp Pulse Resp BP Pulse Ox 36.3 C 86 16 113/65 96 02/02/18 15:29 02/02/18 15:29 02/02/18 15:29 02/02/18 15:29 02/02/18 15:29 Laboratory Results 01/28/18 05:05 02/01/18 02/02/18 02/03/18 05:59 05:59 05:59 Intake Total 1740 1176 Output Total 2650 Balance 1740 -1475 - Physical Exam Constitutional: no apparent distress, appears nourished Eyes: PERRL, anicteric sclera Ears, Nose, Mouth, Throat: moist mucous membranes, hearing normal Cardiovascular: regular rate and rhythym, no murmur, rub, or gallop Respiratory: no respiratory distress, no rales or rhonchi Gastrointestinal: soft, non-tender abdomen Genitourinary: no bladder fullness, No owen in urethra Skin: warm Musculoskeletal: full muscle strength Neurologic: AAOx3, sensation intact bilaterally Psychiatric: interacting appropriately ICD10 Worksheet Patient Problems: Problems Problem Status Onset Dehydration Acute Syncope Acute Abdominal abscess Acute Abdominal pain Acute Compression fracture of body of thoracic vertebra Acute Hypochloremia Acute Intractable vomiting Acute Near syncope Acute Shortness of breath Acute Volume depletion Acute
[2018-02-03] MEDS: HYDROmorphONE/DILAUDID 1 MG/ML INJ IVP PRN ×9 (01:31→22:07)
[2018-02-03] MEDS: PROMETHAZINE HCL 25 MG/ML INJ IVP SCH ×3 (06:00→17:51)
[2018-02-03] MEDS: busPIRone 5 MG TAB PO SCH ×3 (06:06→20:06)
[2018-02-03] MEDS: lamoTRIgine 100 MG TAB PO SCH ×2 (10:24→20:05)
[2018-02-03] MEDS: CHOLECALCIFEROL VIT D3 1,000 UNITS TAB PO SCH (10:24)
[2018-02-03] MEDS: MULTIVITAMINS 1 EACH TAB PO SCH (10:24)
[2018-02-03] MEDS: CHOLESTYRAMINE/SUCROSE 4 GM PKT PO SCH ×2 (10:26→20:05)
[2018-02-03] MEDS: GLUTAMINE (GLUTASOLVE) 1 EACH PKT PO SCH ×3 (10:30→22:12)
[2018-02-03] MEDS: PATCH REMOVAL 1 EA PATCH TD SCH (10:31)
[2018-02-03] MEDS: diphenhydrAMINE 25 MG CAP PO PRN ×2 (10:34→20:06)
--- NOTE | 2018-02-03 11:14 | HOSPPROG ---
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 ongoing high ostomy output and problems with nausea vomiting * She is reluctant to try anti motility agents as she did have an episode of pseudo-obstruction from Imodium and has long history of motility disorder * requiring ongoing high dose antiemetics (getting phenergan 25 iv qid and frequent benadryl doses here) * questran and glutamine started w sig improvement in sx * stool elastase pending, adrenal insufficiency: likely 2/2 chronic narcotics start dex 1 mg po daily WILL NEEDS STRESS DOSE STEROIDS FOR GA AND KYPHOPLASTY ultimately needs jeff stim Ongoing pain at thoracic spine with previous compression fractures (T5-9 from a seizure in September) and severe kyphosis, as well as prior chronic history of scoliosis with pain due to that * T5 and 6 previously treated with kyphoplasties * MRI does not show evidence of marrow edema or healing that would be amenable to kyphoplasty * per dr perez, has not had edema except t6 in past, improvement in sx w kyphoplasty * t7,8,9kyphoplasty in AM 02/04 Osteoporosis: In setting of malabsorption and amenorrhea. * She is on vit D and calcium supplements and is vitamin D replete. * not candidate for oral bisphosphonate due to gastrectomy. * reviewed w Dr Machado of endocrinology who recommends that patient follow up with Dr Dunn in endo clinic. Referral placed in the Discharge Plan tab. Syncope at home, likely due to dehydration from gi issues, no recurrent sxs here Chronic abdominal pain: Continue home oxycodone at usual dose. Seizure d/o: Lamotrigine Primary amenorrhea: Patient reports never having menstrual cycle. Follow up with endocrine. Severely low BMI: Nutrition consulted * As above her nausea and ostomy output issues need to be addressed. Also she should be more formally assessed for malabsorption and see if any specific treatment may be helpful Subjective: case d/w dr perez, dr soriano, dr herrera. abd pain and ostomy output much improved Objective: Vital Signs Temp Pulse Resp BP Pulse Ox 36.6 C 88 14 102/69 95 02/03/18 10:49 02/03/18 10:49 02/03/18 10:49 02/03/18 10:49 02/03/18 10:49 Laboratory Results 02/03/18 06:12 02/02/18 02/03/18 02/04/18 05:59 05:59 05:59 Intake Total 1176 480 Output Total 2650 700 Balance -1474 -220 - Physical Exam Constitutional: no apparent distress, appears nourished Eyes: PERRL, anicteric sclera Ears, Nose, Mouth, Throat: moist mucous membranes, hearing normal Cardiovascular: regular rate and rhythym, no murmur, rub, or gallop Respiratory: no respiratory distress, no rales or rhonchi Gastrointestinal: normoactive bowel sounds, soft, non-tender abdomen Genitourinary: no bladder fullness, No owen in urethra Skin: warm, normal color Musculoskeletal: full muscle strength Neurologic: AAOx3 ICD10 Worksheet Patient Problems: Problems Problem Status Onset Dehydration Acute Syncope Acute Abdominal abscess Acute Abdominal pain Acute Compression fracture of body of thoracic vertebra Acute Hypochloremia Acute Intractable vomiting Acute Near syncope Acute Shortness of breath Acute Volume depletion Acute
--- NOTE | 2018-02-03 14:14 | ASMTCMCOM ---
CM Note CM Note Notes: Pts case reviewed in tx rounds. Pt will d/c with [facility] when medically stable. CM to follow. Date Signed: 02/03/2018 02:13 PM Electronically Signed By:BRENDA Farah
[2018-02-03] MEDS: DEXAMETHASONE 2 MG TAB PO SCH (14:33)
[2018-02-03] MEDS: oxyCODONE ORAL SOLUTION 10 MG/0.5 ML UDSYR PO PRN (18:04)
[2018-02-04] MEDS: HYDROmorphONE/DILAUDID 1 MG/ML INJ IVP PRN ×9 (00:20→23:05)
[2018-02-04] MEDS: PROMETHAZINE HCL 25 MG/ML INJ IVP SCH ×5 (00:20→23:01)
[2018-02-04] MEDS: busPIRone 5 MG TAB PO SCH ×3 (07:08→20:44)
[2018-02-04] MEDS: DEXAMETHASONE 2 MG TAB PO SCH (07:56)
[2018-02-04] MEDS: lamoTRIgine 100 MG TAB PO SCH ×2 (07:56→20:38)
[2018-02-04] MEDS: MULTIVITAMINS 1 EACH TAB PO SCH (07:57)
[2018-02-04] MEDS: CHOLECALCIFEROL VIT D3 1,000 UNITS TAB PO SCH (07:57)
[2018-02-04] MEDS: CHOLESTYRAMINE/SUCROSE 4 GM PKT PO SCH ×2 (11:20→20:38)
--- NOTE | 2018-02-04 11:21 | SOAPPROG ---
SOAP Progress Note Assessment/Plan: Assessment: Diarrhea overall much better with Questran N/V Back pain Plan:Await malabsorption w/u Check AM cortisol Continue Questran appears to be helping Defer pain management to hospitalist 02/02/18 12:19 02/04/18 11:17 Diarrhea improved with Questran Back pain to have IR treatment today High fecal fat, suggest malabsorption ddx includes IBD or cleiac sprue (pt has had multiple endoscopies w/o evidence of this), pancreatic insuff, small bowel resection or SIBO. P/ Rec await fecal elastase as a measure for pancreatitc insujj If normal then recommend SIBO breath tet to r/o small intestinal bacterial overgrowth Subjective: CC back pain Diarrhea doing better with Questran Objective: Vital Signs Temp Pulse Resp BP Pulse Ox 36.8 C 76 16 85/60 L 97 02/04/18 07:59 02/04/18 07:59 02/04/18 07:59 02/04/18 07:59 02/04/18 07:59 Laboratory Results 02/03/18 06:12 02/03/18 02/04/18 02/05/18 05:59 05:59 05:59 Intake Total 480 550 Output Total 700 Balance -220 550 Physical Exam - Physical Exam General Appearance: no apparent distress Respiratory: lungs clear Abdomen: non-tender, soft ICD10 Worksheet Patient Problems: Problems Problem Status Onset Dehydration Acute Syncope Acute Abdominal abscess Acute Abdominal pain Acute Compression fracture of body of thoracic vertebra Acute Hypochloremia Acute Intractable vomiting Acute Near syncope Acute Shortness of breath Acute Volume depletion Acute
[2018-02-04] MEDS: PATCH REMOVAL 1 EA PATCH TD SCH (11:22)
[2018-02-04] MEDS: GLUTAMINE (GLUTASOLVE) 1 EACH PKT PO SCH ×3 (11:22→20:38)
--- NOTE | 2018-02-04 12:12 | HOSPPROG ---
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 ongoing high ostomy output and problems with nausea vomiting * She is reluctant to try anti motility agents as she did have an episode of pseudo-obstruction from Imodium and has long history of motility disorder * requiring ongoing high dose antiemetics (getting phenergan 25 iv qid and frequent benadryl doses here) * questran and glutamine started w sig improvement in sx * fecal fat high- differential is pancreatic insufficiency, short small bowel or inflammatory condition of small bowel * stool elastase pending, this will help clarify above adrenal insufficiency: likely 2/2 chronic narcotics start dex 1 mg po daily WILL NEEDS STRESS DOSE STEROIDS FOR GA AND KYPHOPLASTY ultimately needs jeff stim; may be reasonable to do this as an outpatient as she has endocrine follow up for osteoporosis Ongoing pain at thoracic spine with previous compression fractures (T5-9 from a seizure in September) and severe kyphosis, as well as prior chronic history of scoliosis with pain due to that * T5 and 6 previously treated with kyphoplasties * MRI does not show evidence of marrow edema or healing that would be amenable to kyphoplasty * per dr perez, has not had edema except t6 in past, improvement in sx w kyphoplasty * t7,8,9kyphoplasty in AM 11/14 Osteoporosis: In setting of malabsorption and amenorrhea. * She is on vit D and calcium supplements and is vitamin D replete. * not candidate for oral bisphosphonate due to gastrectomy. * reviewed w Dr Machado of endocrinology who recommends that patient follow up with Dr Dunn in endo clinic. Referral placed in the Discharge Plan tab. Syncope at home, likely due to dehydration from gi issues, no recurrent sxs here Chronic abdominal pain: Continue home oxycodone at usual dose. Seizure d/o: Lamotrigine Primary amenorrhea: Patient reports never having menstrual cycle. Follow up with endocrine. Severely low BMI: Nutrition consulted * As above her nausea and ostomy output issues need to be addressed. Also she should be more formally assessed for malabsorption and see if any specific treatment may be helpful Subjective: case d/w dr soriano. fecal fat high (30%) Objective: Vital Signs Temp Pulse Resp BP Pulse Ox 36.8 C 76 16 85/60 L 97 02/04/18 07:59 02/04/18 07:59 02/04/18 07:59 02/04/18 07:59 02/04/18 07:59 Laboratory Results 02/03/18 06:12 02/03/18 02/04/18 02/05/18 05:59 05:59 05:59 Intake Total 480 550 Output Total 700 Balance -220 550 - Physical Exam Constitutional: no apparent distress, appears nourished Eyes: PERRL, anicteric sclera Ears, Nose, Mouth, Throat: moist mucous membranes, hearing normal Cardiovascular: regular rate and rhythym, no murmur, rub, or gallop Respiratory: no respiratory distress, no rales or rhonchi Gastrointestinal: normoactive bowel sounds, soft, non-tender abdomen Genitourinary: no bladder fullness, No owen in urethra Skin: warm, normal color Musculoskeletal: full muscle strength Neurologic: AAOx3 ICD10 Worksheet Patient Problems: Problems Problem Status Onset Dehydration Acute Syncope Acute Abdominal abscess Acute Abdominal pain Acute Compression fracture of body of thoracic vertebra Acute Hypochloremia Acute Intractable vomiting Acute Near syncope Acute Shortness of breath Acute Volume depletion Acute
[2018-02-04] MEDS ORDERED: MIDAZOLAM 2 MG/2 ML VIAL IVP ONE (15:36)
--- NOTE | 2018-02-04 15:36 | PDANEPAE ---
ANE History of Present Illness here for kyphoplasty x3 levels ANE Past Medical History - Cardiovascular History Hx Hypertension: No Hx Arrhythmias: No Hx Chest Pain: No Hx Coronary Artery / Peripheral Vascular Disease: No Hx CHF / Valvular Disease: No Hx Palpitations: No - Pulmonary History Hx COPD: No Hx Asthma/Reactive Airway Disease: No Hx Recent Upper Respiratory Infection: No Hx Oxygen in Use at Home: No Hx Sleep Apnea: No Sleep Apnea Screening Result - Last Documented: Negative - Neurologic History Hx Cerebrovascular Accident: No Hx Seizures: No Hx Dementia: No - Endocrine History Hx Diabetes: No - Renal History Hx Renal Disorders: No - Liver History Hx Hepatic Disorders: No - Neurological & Psychiatric Hx Hx Neurological and Psychiatric Disorders: Yes Neurological / Psychiatric History Comment: depression, anxiety - Cancer History Hx Cancer: No - Congenital Disorder History Hx Congenital Disorders: Yes Congenital History Comment: congenital bowel obstruction - GI History Hx Gastrointestinal Disorders: Yes Gastrointestinal History Comment: congential bowel obstruction; gastoparisis; intestinal psudo-obstruction. reflux,gerd,abd pain. ileostomy - Other Health History Other Health History: NONE - Chronic Pain History Chronic Pain: Yes (general abd) - Surgical History Prior Surgeries: multiple ex laps for bowel obstruction; abcess drain placement ; colectomy; illiostomy; j tube and G tube placement; ANE Review of Systems Review of Systems: - Exercise capacity Exercise capacity: >=4 METS ANE Patient History - Allergies Allergies/Adverse Reactions: milk Allergy (Verified 01/20/18 19:55) mustard Allergy (Verified 01/20/18 19:55) - Home Medications Home Medications: Multivitamins [Multivitamin (*)] 1 each PO DAILY 01/08/18 [Last Taken 01/26/18] lamoTRIgine [LamICTAL 100 MG (*)] 50 mg PO BID 01/08/18 [Last Taken 01/26/18 09: 00] oxyCODONE ORAL SOLUTION [Roxicodone Intensol] 20 mg PO Q6H PRN 01/08/18 [Last Taken 01/25/18 21:00] Cholecalciferol Vit D3 [Vitamin D3 (*)] 1,000 units PO DAILY 01/20/18 [Last Taken 01/26/18] - NPO status NPO Status: no food or drink >8 hours NPO Since - Solids (Date): 02/03/18 NPO Since - Solids (Time): 20:00 - Anes Hx Anes Hx: no prior problems - Smoking Hx Smoking Status: Never smoked - Alcohol Use Alcohol Use: None - Family Anes Hx Family Anes Hx: none Family Hx Anesthesia Complications: none ANE Labs/Vital Signs - Labs Result Diagrams: 01/26/18 16:00 02/03/18 06:12 - Vital Signs Blood Pressure: 85/60 Heart Rate: 76 Respiratory Rate: 16 O2 Sat (%): 97 Height: 170.18 cm Weight: 41.73 kg ANE Physical Exam - Airway Neck exam: FROM Mallampati Score: Class 2 Mouth exam: normal dental/mouth exam - Pulmonary Pulmonary: no respiratory distress, clear to auscultation - Cardiovascular Cardiovascular: regular rate and rhythym, no murmur, rub, or gallop - ASA Status ASA Status: III ANE Anesthesia Plan Anesthesia Plan: general endotracheal anesthesia
[2018-02-04] MEDS ORDERED: PROPOFOL 200 MG/20 ML VIAL ONE (15:40)
[2018-02-04] MEDS ORDERED: ROCURONIUM 50 MG/5 ML VIAL ONE (15:40)
[2018-02-04] MEDS ORDERED: fentaNYL 100 MCG/2 ML INJ ONE ×2 (15:40→17:18)
[2018-02-04] MEDS ORDERED: LIDOCAINE 2% 100 MG/5 ML SYR ONE (15:40)
--- NOTE | 2018-02-04 17:01 | POSTANESTH ---
Post Anesthetic Evaluation Cardiovascular Status: Normal, Stable, Similar to Pre-Op Cond Respiratory Status: Normal, Stable, Similar to Pre-op Cond. Level of Consciousness/Mental Status: Can Participate in Eval, Alert and Oriented Pain Control: Adequate, Prn Tx Ordered Nausea/Vomiting Control: Adequate, Prn Tx Ordered Complications Possibly Related to Anesthesia: None Noted
[2018-02-04] MEDS ORDERED: DIAZEPAM 5 MG/ML 1 ML SYR IVP PRN (17:02)
[2018-02-04] MEDS ORDERED: HYDROCODONE/APAP 5/325 TAB PO PRN (17:02)
[2018-02-04] MEDS ORDERED: NALOXONE HCL 0.4 MG/ML INJ IVP PRN (17:02)
[2018-02-04] MEDS ORDERED: ACETAMINOPHEN 500 MG TAB PO PRN (17:02)
[2018-02-04] MEDS ORDERED: fentaNYL 100 MCG/2 ML INJ IVP PRN (17:02)
[2018-02-04] MEDS ORDERED: ONDANSETRON 4 MG/2 ML VIAL IVP PRN (17:02)
[2018-02-04] MEDS ORDERED: HYDROmorphONE/DILAUDID 2 MG/ML INJ IVP PRN (17:02)
--- NOTE | 2018-02-04 17:03 | PDRADPN ---
Radiology Procedure Note Date of Procedure: 02/04/18 Radiologist: Marcy Mayo Anesthesia: GET(General Endotracheal) Pre-op Diagnosis: compression fractures Post-op Diagnosis: SAME Indication: severe pain Procedure: T7-10 kyphoplasty Inf/Abcess present in the surg proc area at time of surgery?: No
[2018-02-04] MEDS ORDERED: HYDROmorphONE/DILAUDID 2 MG/ML INJ ONE (17:13)
[2018-02-04] MEDS ORDERED: BUPIVACAINE 0.5% 30 ML SDV ONE (18:14)
[2018-02-04] MEDS: diphenhydrAMINE 25 MG CAP PO PRN (19:55)
[2018-02-04] MEDS: oxyCODONE ORAL SOLUTION 10 MG/0.5 ML UDSYR PO PRN (19:55)
[2018-02-05] MEDS: HYDROmorphONE/DILAUDID 1 MG/ML INJ IVP PRN ×6 (01:05→21:58)
[2018-02-05] MEDS: PROMETHAZINE HCL 25 MG/ML INJ IVP SCH ×4 (05:26→23:14)
[2018-02-05] MEDS: diphenhydrAMINE 25 MG CAP PO PRN ×2 (08:53→19:58)
[2018-02-05] MEDS: lamoTRIgine 100 MG TAB PO SCH ×2 (09:00→21:58)
[2018-02-05] MEDS: CHOLECALCIFEROL VIT D3 1,000 UNITS TAB PO SCH (09:00)
[2018-02-05] MEDS: MULTIVITAMINS 1 EACH TAB PO SCH (09:00)
[2018-02-05] MEDS: DEXAMETHASONE 2 MG TAB PO SCH (09:02)
[2018-02-05] MEDS: busPIRone 5 MG TAB PO SCH ×3 (09:03→19:57)
[2018-02-05] MEDS: CHOLESTYRAMINE/SUCROSE 4 GM PKT PO SCH ×2 (09:04→21:58)
[2018-02-05] MEDS: GLUTAMINE (GLUTASOLVE) 1 EACH PKT PO SCH ×3 (09:06→21:58)
[2018-02-05] MEDS: HYDROmorphONE/DILAUDID 2 MG/ML INJ IVP PRN ×3 (12:22→17:53)
[2018-02-05] MEDS: PATCH REMOVAL 1 EA PATCH TD SCH (12:24)
--- NOTE | 2018-02-05 15:32 | HOSPPROG ---
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 ongoing high ostomy output and problems with nausea vomiting * She is reluctant to try anti motility agents as she did have an episode of pseudo-obstruction from Imodium and has long history of motility disorder * requiring ongoing high dose antiemetics (getting phenergan 25 iv qid and frequent benadryl doses here) * questran and glutamine started w sig improvement in sx * fecal fat high- differential is pancreatic insufficiency, short small bowel or inflammatory condition of small bowel * stool elastase pending, this will help clarify above adrenal insufficiency: likely 2/2 chronic narcotics start dex 1 mg po daily AM Cortisol this morning low at 0.4 ultimately needs jeff stim; may be reasonable to do this as an outpatient as she has endocrine follow up for osteoporosis Ongoing pain at thoracic spine with previous compression fractures (T5-9 from a seizure in September) and severe kyphosis, as well as prior chronic history of scoliosis with pain due to that * T5 and 6 previously treated with kyphoplasties * MRI does not show evidence of marrow edema or healing that would be amenable to kyphoplasty * per dr perez, has not had edema except t6 in past, improvement in sx w kyphoplasty * s/p t7,8,9kyphoplasty 02/04 Osteoporosis: In setting of malabsorption and amenorrhea. * She is on vit D and calcium supplements and is vitamin D replete. * not candidate for oral bisphosphonate due to gastrectomy. * reviewed w Dr Machado of endocrinology who recommends that patient follow up with Dr Dunn in endo clinic. Referral placed in the Discharge Plan tab. Syncope at home, likely due to dehydration from gi issues, no recurrent sxs here Chronic abdominal pain: Continue home oxycodone at usual dose. Seizure d/o: Lamotrigine Primary amenorrhea: Patient reports never having menstrual cycle. Follow up with endocrine. Severely low BMI: Nutrition consulted * As above her nausea and ostomy output issues need to be addressed. Also she should be more formally assessed for malabsorption and see if any specific treatment may be helpful Subjective: Patient reports improvement in symptoms including abdominal pain this AM Objective: Vital Signs Temp Pulse Resp BP Pulse Ox 36.8 C 102 H 16 98/68 L 98 02/05/18 15:19 02/05/18 15:19 02/05/18 15:19 02/05/18 15:19 02/05/18 15:19 Laboratory Results 02/03/18 06:12 02/04/18 02/05/18 02/06/18 05:59 05:59 05:59 Intake Total 550 400 Balance 550 400 - Physical Exam Constitutional: no apparent distress Eyes: PERRL Ears, Nose, Mouth, Throat: moist mucous membranes Cardiovascular: regular rate and rhythym Respiratory: no respiratory distress Gastrointestinal: tenderness, No guarding, No rebound Genitourinary: no bladder tenderness Skin: warm Musculoskeletal: full muscle strength Neurologic: AAOx3 Psychiatric: interacting appropriately ICD10 Worksheet Patient Problems: Problems Problem Status Onset Dehydration Acute Syncope Acute Abdominal abscess Acute Abdominal pain Acute Compression fracture of body of thoracic vertebra Acute Hypochloremia Acute Intractable vomiting Acute Near syncope Acute Shortness of breath Acute Volume depletion Acute
[2018-02-05] MEDS: oxyCODONE ORAL SOLUTION 10 MG/0.5 ML UDSYR PO PRN ×2 (15:34→23:14)
[2018-02-06] MEDS: HYDROmorphONE/DILAUDID 1 MG/ML INJ IVP PRN ×9 (00:14→22:27)
[2018-02-06] MEDS: diphenhydrAMINE 25 MG CAP PO PRN ×2 (02:46→20:22)
[2018-02-06] MEDS: PROMETHAZINE HCL 25 MG/ML INJ IVP SCH ×3 (05:19→18:12)
--- NOTE | 2018-02-06 10:43 | SOAPPROG ---
SOAP Progress Note Assessment/Plan: Assessment: Diarrhea overall much better with Questran, has high fecal fat DDX includes malabsorption from IBD or cleiac sprue (pt has had multiple endoscopies w/o evidence of this), pancreatic insuff, small bowel resection or SIBO. N/V better Low cortisol Back pain s/p kyphoplasty Plan: Await stool elastase to r/o pancreatic insufficiency If normal then recommend SIBO breath tet to r/o small intestinal bacterial overgrowth Dr. Simons to take over service tonight 02/06/18 10:40 Subjective: CC diarrhea Doing better on Questran w/u in progress Objective: Vital Signs Temp Pulse Resp BP Pulse Ox 36.5 C 70 12 85/56 L 94 02/06/18 08:00 02/06/18 08:00 02/06/18 08:00 02/06/18 08:00 02/06/18 08:00 Laboratory Results 02/03/18 06:12 02/05/18 02/06/18 02/07/18 05:59 05:59 05:59 Intake Total 400 Balance 400 Physical Exam - Physical Exam General Appearance: no apparent distress Respiratory: lungs clear Cardiac/Chest: regular rate, rhythm Abdomen: non-tender, soft ICD10 Worksheet Patient Problems: Problems Problem Status Onset Dehydration Acute Syncope Acute Abdominal abscess Acute Abdominal pain Acute Compression fracture of body of thoracic vertebra Acute Hypochloremia Acute Intractable vomiting Acute Near syncope Acute Shortness of breath Acute Volume depletion Acute
[2018-02-06] MEDS: DEXAMETHASONE 2 MG TAB PO SCH (10:57)
[2018-02-06] MEDS: lamoTRIgine 100 MG TAB PO SCH ×2 (10:58→20:22)
[2018-02-06] MEDS: busPIRone 5 MG TAB PO SCH ×3 (10:58→20:24)
[2018-02-06] MEDS: MULTIVITAMINS 1 EACH TAB PO SCH (10:59)
[2018-02-06] MEDS: CHOLECALCIFEROL VIT D3 1,000 UNITS TAB PO SCH (10:59)
[2018-02-06] MEDS: GLUTAMINE (GLUTASOLVE) 1 EACH PKT PO SCH ×3 (11:00→22:30)
[2018-02-06] MEDS: CHOLESTYRAMINE/SUCROSE 4 GM PKT PO SCH ×2 (11:00→20:24)
[2018-02-06] MEDS: PATCH REMOVAL 1 EA PATCH TD SCH (11:36)
--- NOTE | 2018-02-06 12:58 | HOSPPROG ---
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 ongoing high ostomy output and problems with nausea vomiting * She is reluctant to try anti motility agents as she did have an episode of pseudo-obstruction from Imodium and has long history of motility disorder * requiring ongoing high dose antiemetics (getting phenergan 25 iv qid and frequent benadryl doses here) * questran and glutamine started w sig improvement in sx * fecal fat high- differential is pancreatic insufficiency, short small bowel or inflammatory condition of small bowel * stool elastase pending, this will help clarify above adrenal insufficiency: likely 2/2 chronic narcotics Continue dex 1 mg po daily AM Cortisol on 02/05 low at 0.4 ultimately needs jeff stim; may be reasonable to do this as an outpatient as she has endocrine follow up for osteoporosis Ongoing pain at thoracic spine with previous compression fractures (T5-9 from a seizure in September) and severe kyphosis, as well as prior chronic history of scoliosis with pain due to that * T5 and 6 previously treated with kyphoplasties * MRI does not show evidence of marrow edema or healing that would be amenable to kyphoplasty * per dr perez, has not had edema except t6 in past, improvement in sx w kyphoplasty * s/p t7,8,9kyphoplasty 02/04 Osteoporosis: In setting of malabsorption and amenorrhea. * She is on vit D and calcium supplements and is vitamin D replete. * not candidate for oral bisphosphonate due to gastrectomy. * reviewed w Dr Machado of endocrinology who recommends that patient follow up with Dr Dunn in endo clinic. Referral placed in the Discharge Plan tab. Syncope at home, likely due to dehydration from gi issues, no recurrent sxs here Chronic abdominal pain: Continue home oxycodone at usual dose. Seizure d/o: Lamotrigine Primary amenorrhea: Patient reports never having menstrual cycle. Follow up with endocrine. Severely low BMI: Nutrition consulted * As above her nausea and ostomy output issues need to be addressed. Also she should be more formally assessed for malabsorption and see if any specific treatment may be helpful Subjective: Patient reports continued improvement in ostomy output Objective: Vital Signs Temp Pulse Resp BP Pulse Ox 36.5 C 70 12 85/56 L 94 02/06/18 08:00 02/06/18 08:00 02/06/18 08:00 02/06/18 08:00 02/06/18 08:00 Laboratory Results 02/03/18 06:12 02/05/18 02/06/18 02/07/18 05:59 05:59 05:59 Intake Total 400 Balance 400 - Physical Exam Constitutional: no apparent distress Eyes: PERRL Ears, Nose, Mouth, Throat: moist mucous membranes Cardiovascular: regular rate and rhythym Respiratory: no respiratory distress Gastrointestinal: No tenderness Skin: warm Musculoskeletal: full muscle strength Neurologic: AAOx3 Psychiatric: interacting appropriately ICD10 Worksheet Patient Problems: Problems Problem Status Onset Dehydration Acute Syncope Acute Abdominal abscess Acute Abdominal pain Acute Compression fracture of body of thoracic vertebra Acute Hypochloremia Acute Intractable vomiting Acute Near syncope Acute Shortness of breath Acute Volume depletion Acute
--- NOTE | 2018-02-06 15:24 | ASMTCMCOM ---
CM Note CM Note Notes: Pts case discussed w/ DONNIE Sierra. Updates sent to [facility]. CM to follow. Plan: [facility]; DONNIE, MICAELA w/ [facility] Date Signed: 02/06/2018 03:23 PM Electronically Signed By:BRENDA Farah
[2018-02-07] MEDS: PROMETHAZINE HCL 25 MG/ML INJ IVP SCH ×5 (00:34→23:34)
[2018-02-07] MEDS: HYDROmorphONE/DILAUDID 1 MG/ML INJ IVP PRN ×3 (00:34→05:45)
[2018-02-07] MEDS ORDERED: HYDROmorphONE/DILAUDID 2 MG/ML INJ ONE (05:41)
[2018-02-07] MEDS: busPIRone 5 MG TAB PO SCH ×3 (05:44→20:31)
[2018-02-07] MEDS: MULTIVITAMINS 1 EACH TAB PO SCH (11:03)
[2018-02-07] MEDS: CHOLECALCIFEROL VIT D3 1,000 UNITS TAB PO SCH (11:04)
[2018-02-07] MEDS: lamoTRIgine 100 MG TAB PO SCH ×2 (11:04→20:31)
--- NOTE | 2018-02-07 11:04 | HOSPPROG ---
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 ongoing high ostomy output and problems with nausea vomiting * She is reluctant to try anti motility agents as she did have an episode of pseudo-obstruction from Imodium and has long history of motility disorder * requiring ongoing high dose antiemetics (getting phenergan 25 iv qid and frequent benadryl doses here) * questran and glutamine started w sig improvement in sx * fecal fat high- differential is pancreatic insufficiency, short small bowel or inflammatory condition of small bowel * stool elastase pending, this will help clarify above adrenal insufficiency: likely 2/2 chronic narcotics Continue dex 1 mg po daily AM Cortisol on 02/05 low at 0.4 ultimately needs jeff stim; may be reasonable to do this as an outpatient as she has endocrine follow up for osteoporosis Ongoing pain at thoracic spine with previous compression fractures (T5-9 from a seizure in September) and severe kyphosis, as well as prior chronic history of scoliosis with pain due to that * T5 and 6 previously treated with kyphoplasties * MRI does not show evidence of marrow edema or healing that would be amenable to kyphoplasty * per dr perez, has not had edema except t6 in past, improvement in sx w kyphoplasty * s/p t7,8,9kyphoplasty 02/04 Osteoporosis: In setting of malabsorption and amenorrhea. * She is on vit D and calcium supplements and is vitamin D replete. * not candidate for oral bisphosphonate due to gastrectomy. * reviewed w Dr Machado of endocrinology who recommends that patient follow up with Dr Dunn in endo clinic. Referral placed in the Discharge Plan tab. Syncope at home, likely due to dehydration from gi issues, no recurrent sxs here Chronic abdominal pain: Continue home oxycodone at usual dose. Seizure d/o: Lamotrigine Primary amenorrhea: Patient reports never having menstrual cycle. Follow up with endocrine. Severely low BMI: Nutrition consulted * As above her nausea and ostomy output issues need to be addressed. Also she should be more formally assessed for malabsorption and see if any specific treatment may be helpful Subjective: Patient reports continued decreased ostomy output, pain is controlled this AM as well Objective: Vital Signs Temp Pulse Resp BP Pulse Ox 36.3 C 86 16 120/75 99 02/07/18 10:59 02/07/18 10:59 02/07/18 10:59 02/07/18 10:59 02/07/18 10:59 Laboratory Results 02/03/18 06:12 02/06/18 02/07/18 02/08/18 05:59 05:59 05:59 Intake Total 400 Balance 400 - Physical Exam Constitutional: no apparent distress Eyes: PERRL Ears, Nose, Mouth, Throat: moist mucous membranes Cardiovascular: regular rate and rhythym Respiratory: no respiratory distress Gastrointestinal: soft, non-tender abdomen, other (ostomy in place) Skin: warm, normal color Musculoskeletal: full muscle strength Neurologic: AAOx3 Psychiatric: interacting appropriately ICD10 Worksheet Patient Problems: Problems Problem Status Onset Dehydration Acute Syncope Acute Abdominal abscess Acute Abdominal pain Acute Compression fracture of body of thoracic vertebra Acute Hypochloremia Acute Intractable vomiting Acute Near syncope Acute Shortness of breath Acute Volume depletion Acute
[2018-02-07] MEDS: DEXAMETHASONE 2 MG TAB PO SCH (11:05)
[2018-02-07] MEDS: GLUTAMINE (GLUTASOLVE) 1 EACH PKT PO SCH ×3 (11:06→20:33)
[2018-02-07] MEDS: CHOLESTYRAMINE/SUCROSE 4 GM PKT PO SCH ×2 (11:06→22:42)
[2018-02-07] MEDS: oxyCODONE ORAL SOLUTION 10 MG/0.5 ML UDSYR PO PRN ×3 (11:07→23:35)
[2018-02-07] MEDS: PATCH REMOVAL 1 EA PATCH TD SCH (11:08)
--- NOTE | 2018-02-07 14:34 | SOAPPROG ---
SOAP Progress Note Assessment/Plan: Assessment: 1. Diarrhea; resolved on Questran. ? Choleretic diarrhea secondary to major bowel surgery with malabsorption of bile. Plan: 1. Continue Questran. 2. OK to D/C home tomorrow with F/U OV with our group as outpatient. Patient has relocated to [place] and wants a GI MD in this area. Shaji Meyer MD 02/07/18 14:31 Subjective: CC; Diarrhea. Interval HPI: Marked improvement of diarrhea on Questran. Objective: Vital Signs Temp Pulse Resp BP Pulse Ox 36.3 C 86 16 120/75 99 02/07/18 10:59 02/07/18 10:59 02/07/18 10:59 02/07/18 10:59 02/07/18 10:59 Laboratory Results 02/03/18 06:12 02/06/18 02/07/18 02/08/18 05:59 05:59 05:59 Intake Total 400 Balance 400 Physical Exam - Physical Exam General Appearance: WD/WN, alert, no apparent distress Respiratory: chest non-tender, lungs clear, normal breath sounds Cardiac/Chest: normal peripheral pulses, regular rate, rhythm Abdomen: normal bowel sounds, non-tender, soft Skin: normal color, warm/dry Neuro/Psych: alert, normal mood/affect, oriented x 3 ICD10 Worksheet Patient Problems: Problems Problem Status Onset Dehydration Acute Syncope Acute Abdominal abscess Acute Abdominal pain Acute Compression fracture of body of thoracic vertebra Acute Hypochloremia Acute Intractable vomiting Acute Near syncope Acute Shortness of breath Acute Volume depletion Acute
[2018-02-07] MEDS ORDERED: HYDROmorphONE/DILAUDID 2 MG/ML INJ IVP PRN (21:30)
[2018-02-08] MEDS: busPIRone 5 MG TAB PO SCH ×3 (05:59→21:05)
[2018-02-08] MEDS: oxyCODONE ORAL SOLUTION 10 MG/0.5 ML UDSYR PO PRN ×4 (05:59→21:06)
[2018-02-08] MEDS: PROMETHAZINE HCL 25 MG/ML INJ IVP SCH ×4 (05:59→23:02)
[2018-02-08] MEDS: DEXAMETHASONE 2 MG TAB PO SCH (10:56)
[2018-02-08] MEDS: MULTIVITAMINS 1 EACH TAB PO SCH (10:56)
[2018-02-08] MEDS: CHOLECALCIFEROL VIT D3 1,000 UNITS TAB PO SCH (10:56)
[2018-02-08] MEDS: lamoTRIgine 100 MG TAB PO SCH ×2 (10:57→21:05)
[2018-02-08] MEDS: CHOLESTYRAMINE/SUCROSE 4 GM PKT PO SCH ×2 (10:57→23:02)
[2018-02-08] MEDS: GLUTAMINE (GLUTASOLVE) 1 EACH PKT PO SCH ×3 (10:58→21:05)
--- NOTE | 2018-02-08 11:07 | SOAPPROG ---
SOAP Progress Note Assessment/Plan: Assessment: 1. Diarrhea; better Questran yesterday am albeit last night had lots of diarrhea and dehydration. Choleretic diarrhea vs steatorrhea. Plan: 1. Continue Questran. Add Pancreatic enzymes today with meals 2. OK to D/C home tomorrow if improved with F/U OV with our group as outpatient. Patient has relocated to [place] and wants a GI MD in this area. Shaji Meyer MD 02/08/18 11:04 Subjective: CC: Diarrhea. Interval HPI: Initial improvement of diarrhea on Questran yesterday am albeit watery BM's and dehydration requiring IV fluids last night. Feeling better today but doesn't want to go home today for fear of having to return. Objective: Vital Signs Temp Pulse Resp BP Pulse Ox 36.6 C 71 12 90/57 L 95 02/08/18 08:00 02/08/18 08:00 02/08/18 08:00 02/08/18 08:00 02/08/18 08:00 Laboratory Results 02/08/18 06:20 02/08/18 06:20 02/07/18 02/08/18 02/09/18 05:59 05:59 05:59 Intake Total 400 Balance 400 Physical Exam - Physical Exam General Appearance: WD/WN, alert, no apparent distress Respiratory: chest non-tender, lungs clear, normal breath sounds Abdomen: normal bowel sounds, non-tender, soft Skin: normal color, warm/dry Neuro/Psych: alert, normal mood/affect, oriented x 3 ICD10 Worksheet Patient Problems: Problems Problem Status Onset Dehydration Acute Syncope Acute Abdominal abscess Acute Abdominal pain Acute Compression fracture of body of thoracic vertebra Acute Hypochloremia Acute Intractable vomiting Acute Near syncope Acute Shortness of breath Acute Volume depletion Acute
--- NOTE | 2018-02-08 11:25 | HOSPPROG ---
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 ongoing high ostomy output and problems with nausea vomiting * She is reluctant to try anti motility agents as she did have an episode of pseudo-obstruction from Imodium and has long history of motility disorder * requiring ongoing high dose antiemetics (getting phenergan 25 iv qid and frequent benadryl doses here) * questran and glutamine started w sig improvement in sx * fecal fat high- differential is pancreatic insufficiency, short small bowel or inflammatory condition of small bowel * stool elastase pending, this will help clarify above * Diarrhea overnight, pancreatic enzymes started per GI this morning with meals adrenal insufficiency: likely 2/2 chronic narcotics Continue dex 1 mg po daily AM Cortisol on 02/05 low at 0.4 ultimately needs jeff stim; may be reasonable to do this as an outpatient as she has endocrine follow up for osteoporosis Ongoing pain at thoracic spine with previous compression fractures (T5-9 from a seizure in September) and severe kyphosis, as well as prior chronic history of scoliosis with pain due to that * T5 and 6 previously treated with kyphoplasties * MRI does not show evidence of marrow edema or healing that would be amenable to kyphoplasty * per dr perez, has not had edema except t6 in past, improvement in sx w kyphoplasty * s/p t7,8,9kyphoplasty 02/04 Osteoporosis: In setting of malabsorption and amenorrhea. * She is on vit D and calcium supplements and is vitamin D replete. * not candidate for oral bisphosphonate due to gastrectomy. * reviewed w Dr Machado of endocrinology who recommends that patient follow up with Dr Dunn in endo clinic. Referral placed in the Discharge Plan tab. Syncope at home, likely due to dehydration from gi issues, no recurrent sxs here Chronic abdominal pain: Continue home oxycodone at usual dose. Seizure d/o: Lamotrigine Primary amenorrhea: Patient reports never having menstrual cycle. Follow up with endocrine. Severely low BMI: Nutrition consulted * As above her nausea and ostomy output issues need to be addressed. Also she should be more formally assessed for malabsorption and see if any specific treatment may be helpful Subjective: Patient reports diarrhea overnight with dehydration Objective: Vital Signs Temp Pulse Resp BP Pulse Ox 36.6 C 71 12 90/57 L 95 02/08/18 08:00 02/08/18 08:00 02/08/18 08:00 02/08/18 08:00 02/08/18 08:00 Laboratory Results 02/08/18 06:20 02/08/18 06:20 02/07/18 02/08/18 02/09/18 05:59 05:59 05:59 Intake Total 400 Balance 400 - Physical Exam Constitutional: chronically ill appearing Eyes: PERRL Ears, Nose, Mouth, Throat: moist mucous membranes Cardiovascular: No edema Respiratory: no respiratory distress Gastrointestinal: other (ileostomy in place), No distension Skin: normal color Neurologic: AAOx3 Psychiatric: interacting appropriately ICD10 Worksheet Patient Problems: Problems Problem Status Onset Dehydration Acute Syncope Acute Abdominal abscess Acute Abdominal pain Acute Compression fracture of body of thoracic vertebra Acute Hypochloremia Acute Intractable vomiting Acute Near syncope Acute Shortness of breath Acute Volume depletion Acute
[2018-02-08] MEDS: LIPASE 12,000/AMYLASE/PROTEASE (CREON) 1 CAP PO SCH ×2 (11:26→17:05)
[2018-02-08] MEDS: PATCH REMOVAL 1 EA PATCH TD SCH (12:01)
[2018-02-08] MEDS: NS 1,000 ML IV SCH ×2 (15:54→23:02)
[2018-02-08] MEDS: diphenhydrAMINE 25 MG CAP PO PRN (20:21)
[2018-02-08] MEDS ORDERED: LORazepam 2 MG/ML INJ IVP ONE (21:00)
[2018-02-09] MEDS: CHOLESTYRAMINE/SUCROSE 4 GM PKT PO SCH ×2 (00:22→11:16)
[2018-02-09] MEDS: oxyCODONE ORAL SOLUTION 10 MG/0.5 ML UDSYR PO PRN ×5 (00:22→21:03)
[2018-02-09] MEDS: busPIRone 5 MG TAB PO SCH ×3 (06:38→19:57)
[2018-02-09] MEDS: PROMETHAZINE HCL 25 MG/ML INJ IVP SCH ×2 (06:38→11:17)
[2018-02-09] MEDS: NS 1,000 ML IV SCH ×2 (06:38→17:44)
[2018-02-09] MEDS: MULTIVITAMINS 1 EACH TAB PO SCH (11:14)
[2018-02-09] MEDS: CHOLECALCIFEROL VIT D3 1,000 UNITS TAB PO SCH (11:14)
[2018-02-09] MEDS: lamoTRIgine 100 MG TAB PO SCH ×2 (11:14→21:04)
[2018-02-09] MEDS: DEXAMETHASONE 2 MG TAB PO SCH (11:14)
[2018-02-09] MEDS: GLUTAMINE (GLUTASOLVE) 1 EACH PKT PO SCH ×3 (11:16→21:02)
[2018-02-09] MEDS: LIPASE 12,000/AMYLASE/PROTEASE (CREON) 1 CAP PO SCH ×3 (11:24→17:44)
[2018-02-09] MEDS: PATCH REMOVAL 1 EA PATCH TD SCH (11:25)
--- NOTE | 2018-02-09 11:58 | HOSPPROG ---
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 ongoing high ostomy output and problems with nausea vomiting * She is reluctant to try anti motility agents as she did have an episode of pseudo-obstruction from Imodium and has long history of motility disorder * requiring ongoing high dose antiemetics (getting phenergan 25 iv qid and frequent benadryl doses here), attempting to switch to PO Phenergan with Scopolamine patch today * questran and glutamine started w initial improvement in sx * fecal fat high- differential is pancreatic insufficiency, short small bowel or inflammatory condition of small bowel * stool elastase pending, this will help clarify above * Diarrhea overnight, pancreatic enzymes started per GI on 02/08 with meals * Seen by GI today and I discussed with Dr. Phan who recommends d/c Questran , continuing pancreatic enzymes, and start abx empirically for SIBO * Patient requiring IVF daily, she is able to get these as outpatient, discussed with CM this afternoon about setting these up for jeanmarie d/c tomorrow adrenal insufficiency: likely 2/2 chronic narcotics Continue dex 1 mg po daily AM Cortisol on 02/05 low at 0.4 ultimately needs jeff stim; plan to do this an outpatient as she has endocrine follow up for osteoporosis Ongoing pain at thoracic spine with previous compression fractures (T5-9 from a seizure in September) and severe kyphosis, as well as prior chronic history of scoliosis with pain due to that * T5 and 6 previously treated with kyphoplasties * MRI does not show evidence of marrow edema or healing that would be amenable to kyphoplasty * per dr perez, has not had edema except t6 in past, improvement in sx w kyphoplasty * s/p t7,8,9kyphoplasty 02/04 Osteoporosis: In setting of malabsorption and amenorrhea. * She is on vit D and calcium supplements and is vitamin D replete. * not candidate for oral bisphosphonate due to gastrectomy. * reviewed w Dr Machado of endocrinology who recommends that patient follow up with Dr Dunn in endo clinic. Referral placed in the Discharge Plan tab. Syncope at home, likely due to dehydration from gi issues, no recurrent sxs here Chronic abdominal pain: Continue home oxycodone at usual dose. Seizure d/o: Lamotrigine Primary amenorrhea: Patient reports never having menstrual cycle. Follow up with endocrine. Severely low BMI: Nutrition consulted * As above her nausea and ostomy output issues need to be addressed. Also she should be more formally assessed for malabsorption and see if any specific treatment may be helpful Dispo: Likely tomorrow, pending clinical course Subjective: Pateint reports increased ostomy output this morning Objective: Vital Signs Temp Pulse Resp BP Pulse Ox 36.5 C 100 16 99/63 L 92 02/09/18 11:37 02/09/18 11:37 02/09/18 11:37 02/09/18 11:37 02/09/18 11:37 Laboratory Results 02/08/18 06:20 02/08/18 06:20 02/08/18 02/09/18 02/10/18 05:59 05:59 05:59 Intake Total 1847 Output Total 1000 Balance 847 - Physical Exam Constitutional: no apparent distress, chronically ill appearing Eyes: PERRL Ears, Nose, Mouth, Throat: moist mucous membranes Cardiovascular: regular rate and rhythym Respiratory: no respiratory distress Gastrointestinal: No distension Skin: normal color Musculoskeletal: full muscle strength Neurologic: AAOx3 Psychiatric: interacting appropriately ICD10 Worksheet Patient Problems: Problems Problem Status Onset Dehydration Acute Syncope Acute Abdominal abscess Acute Abdominal pain Acute Compression fracture of body of thoracic vertebra Acute Hypochloremia Acute Intractable vomiting Acute Near syncope Acute Shortness of breath Acute Volume depletion Acute
[2018-02-09] MEDS ORDERED: PROMETHAZINE HCL 25 MG TAB PO PRN (14:18)
--- NOTE | 2018-02-09 14:32 | SOAPPROG ---
SOAP Progress Note Assessment/Plan: Assessment:Plan: 1) diarrhea - high fat content in stool, panc elastase pending, setup for bacterial overgrowth. Stop cholestyramine given high fat in stool, conitnue panc enzymes and start Xifaxan 550mg po tid for 14 days 2) Fluid - says gets dehydrated quickly if ostomy outpt increases, has some setup at home for IV infusions 3) diet - low fat diet 4) adrenal - very low am cortisol, needs jeff stim test / can be as outpt, discussed with Dr Broussard 02/09/18 14:34 Subjective: cc- diarrhea says about the same as when came in, does look like fat in toilet bowl has mild pain helped with heating pad Objective: Vital Signs Temp Pulse Resp BP Pulse Ox 36.5 C 100 16 99/63 L 92 02/09/18 11:37 02/09/18 11:37 02/09/18 11:37 02/09/18 11:37 02/09/18 11:37 Laboratory Results 02/08/18 06:20 02/08/18 06:20 02/08/18 02/09/18 02/10/18 05:59 05:59 05:59 Intake Total 1847 Output Total 1000 Balance 847 A+ox3 CTA S1S2 +Bs, soft Laboratory Tests 02/01/18 02/01/18 02/03/18 18:04 18:04 06:12 Cortisol AM Sample 0.4 L Stool Weight 31 Stool Percent Fat 30 H Stool Pancreat Elastase Pending ICD10 Worksheet Patient Problems: Problems Problem Status Onset Dehydration Acute Syncope Acute Abdominal abscess Acute Abdominal pain Acute Compression fracture of body of thoracic vertebra Acute Hypochloremia Acute Intractable vomiting Acute Near syncope Acute Shortness of breath Acute Volume depletion Acute
[2018-02-09] MEDS: RIFAXIMIN 550 MG TAB PO SCH ×2 (14:48→21:04)
[2018-02-09] MEDS ORDERED: SCOPOLAMINE HYDROBROMIDE 1 MG/3 DAYS PATCH TD ONE (15:33)
--- NOTE | 2018-02-09 15:43 | ASMTCMCOM ---
CM Note CM Note Notes: CM spoke to Dr. Broussard regarding d/c POC. Pt is requesting for iv fluids for hydration. CM spoke to [facility] and [facility] reports that they are able to accept her as long as Dr. Yao is ok w/ it. Dr. Broussard will speak to Dr. Yao. CM to follow. Plan: [facility]; RN, MICAELA w/ [facility] Date Signed: 02/09/2018 03:42 PM Electronically Signed By:BRENDA Farah
[2018-02-09] MEDS: LORazepam 0.5 MG TAB PO PRN ×2 (16:55→21:04)
[2018-02-09] MEDS: PROMETHAZINE HCL 25 MG TAB PO PRN (19:57)
[2018-02-10] MEDS: oxyCODONE ORAL SOLUTION 10 MG/0.5 ML UDSYR PO PRN ×3 (01:18→13:05)
[2018-02-10] MEDS: LORazepam 0.5 MG TAB PO PRN (01:18)
[2018-02-10] MEDS: NS 1,000 ML IV SCH ×2 (01:22→08:55)
[2018-02-10] MEDS: PROMETHAZINE HCL 25 MG TAB PO PRN ×2 (03:07→08:55)
[2018-02-10 08:40] VITALS: BP 106/65
[2018-02-10] MEDS: busPIRone 5 MG TAB PO SCH ×2 (08:51→13:05)
[2018-02-10] MEDS: LIPASE 12,000/AMYLASE/PROTEASE (CREON) 1 CAP PO SCH ×2 (08:51→13:05)
[2018-02-10] MEDS: DEXAMETHASONE 2 MG TAB PO SCH (09:46)
[2018-02-10] MEDS: lamoTRIgine 100 MG TAB PO SCH (09:46)
[2018-02-10] MEDS: RIFAXIMIN 550 MG TAB PO SCH (09:47)
[2018-02-10] MEDS: GLUTAMINE (GLUTASOLVE) 1 EACH PKT PO SCH (09:47)
[2018-02-10] MEDS: CHOLECALCIFEROL VIT D3 1,000 UNITS TAB PO SCH (09:47)
[2018-02-10] MEDS: MULTIVITAMINS 1 EACH TAB PO SCH (09:47)
[2018-02-10] MEDS: PATCH REMOVAL 1 EA PATCH TD SCH (10:10)
--- NOTE | 2018-02-10 11:32 | PDIAF ---
- Diagnosis Diagnosis: Dehydration, Chronic diarrhea, Chronic abdominal pain, Spine fractures Code Status: Full Code - Medication Management Correction Antibiotics: Rifaximin x 14 days total. Discharge Medications: electronically signed and located in the Home Medication List. PICC Care - Routine: Yes - Orders Services needed: Home Care, Registered Nurse, Certified Station Examiner, Physical Therapy Home Care Face to Face: I certify that this patient was under my care and that I had the required [id number] encounter meeting the encounter requirements on the discharge day. My findings support the fact that the patient is homebound as defined in Home Care Face to Face Continued: CMS Chapter 7 Medicare Benefits Manual 30.1.1 , The condition of the patient is such that there exists a normal inability to leave home and consequently, leaving home would require a considerable and taxing effort. Isolation Type: None Diet Recommendation: other (low fat, low fiber, no meat, no dairy) Diet Texture: Regular Texture Diet - Follow Up Care Current Providers and Referrals: Umu Hill DO [Primary Care Provider] - follow up in 1 week Richy Yao MD [Medical Doctor] - follow up as scheduled Radha Dunn MD [Medical Doctor] - follow up in 2 weeks (International Trade Manager - to discuss low cortisol and amenorrhea) Sarah Jacobs NP [Certified Nurse Practioner] - follow up in 2 weeks (Pain mgmt at [facility]) Karen Zamora MD [Medical Doctor] - follow up in 2 weeks (GI specialist )
--- NOTE | 2018-02-10 13:02 | ASMTDCNOTE ---
Case Management Discharge Discharge Order Complete? Answers: Yes Patient to Obtain Answers: via Family Medications Transportation Arranged Answers: Family/Friends EMTALA Complete Answers: No Case Management Transport Answers: No Form Complete Faxed Final Orders Answers: Yes Agency/Facility Transfer Answers: Yes Report Printed & Faxed to Receiving Agency Family Notified Answers: No Discharge Comments Notes: Pts case discussed w/ Dr. Jameson and DONNIE Garcia. Pt is being d/c today. Pt will get iv fluids through [facility]. Referral sent. Nancy from [facility] spoke w/ pt. DC orders sent to [facility] and [facility]. CM available for changes. Plan: [facility]; RN, INSTRUMENT ENGINEER, SW with [facility] Date Signed: 02/10/2018 01:01 PM Electronically Signed By:BRENDA Farah
--- NOTE | 2018-02-10 13:03 | ASDISCHSUM ---
Discharge Information Plan Status:Home with Home Health Medically Cleared to Leave:02/09/2018 Discharge Date:02/09/2018 CM D/C Disposition: ADT [facility] Projected Discharge Date:02/10/2018 11:00 AM Transportation at D/C: Discharge Delay Reason: Follow-Up Date:02/10/2018 11:00 AM Discharge Slot: Final Diagnosis: Placement Information Referral Type:*Home Health Care Services Referral ID:[id number] Provider Name:[facility] Address 1:[address] Address 2: City:[place] Selection Factors: State:[place] Referral Type:Palliative Care Referral ID:[id number] Provider Name:[facility] Address 1:[address] Phone Number: Address 2: Fax Number: City:[place] Selection Factors: State:[place] Referral Type:Home Infusion Referral ID:[id number] Provider Name:[facility] Address 1:[address] [facility] [address] Address 2: City:[place] Selection Factors: State:[place] Patient Contact Information Contact Name:AGUILAR Relationship:Other Address: Work Phone: City:[place] [facility] Phone: [facility]/[employer] Code:[place] Email: Financial Information Financial Class:BCOP Primary Plan Desc: OUT OF STATE PPO Primary Plan Number:[id number] Secondary Plan Desc:MED[place] Secondary Plan Number:[id number] Assessment Information LACE LACE Length of stay for Answers: 14 days or more current admission Acuity / Level of Answers: Yes Care: Did the patient have an inpatient admission? Comorbidities - select Answers: Opioid dependence all that apply / Chronic pain Other Notes: Extensive gastrointestinal hx # of Emergency department Answers: 12+ visits in the last 6 months Social determinants Answers: Mental health diagnosis (anxiety, depression, pers onality disorders, etc.) Score: 24 Date Signed: 02/10/2018 01:02 PM Electronically Signed By:BRENDA Farah [facility] CM Progress Note CM Note CM Note Notes: Pt is a 22 y/o female admitted for dehydration. Pt recently d/c from [facility] on 01/25/18 for intractable abdominal pain and vomiting. Pt is well known to [facility] w/ an extensive medical hx. Pt is current w/ [facility], RN and SW along w/ [facility]. CM to follow. Date Signed: 01/27/2018 03:30 PM Electronically Signed By:BRENDA Farah [facility] CM Progress Note CM Note CM Note Notes: CM spoke to Luciana w/ [facility]. Luciana would like to see if a nutritional consult can be ordered. Luciana is suspecting that pt is purposefully not eating. CM communicated this w/ Dr. Reyes. CM to follow. Plan: [facility]; RN, SW with [facility] Date Signed: 01/28/2018 03:14 PM Electronically Signed By:BRENDA Farah [facility] CM Progress Note CM Note CM Note Notes: CM met with pt. Pt will be d/cing home with Family . She is requesting assistance in finding someone for pain management. CM recommended that she begin by looking up who her insurance, [employer], has in-network. Contact information on Calos Broussard and specifically, Sarah Jacobs, was provided to her. D/C Plan: Home with Family MICAELA/DONNIE and [facility] Date Signed: 01/29/2018 02:18 PM Electronically Signed By:Yolanda Oro [facility] CM Progress Note CM Note CM Note Notes: CM contacted by Tonja from [facility]. Tonja inquired as to whether pt would be discharged this weekend. It was confirmed with Tonja that upon d/c current reports will be sent and a phone call made to alert them to pt returning home. D/C Plan: Home with Family RN/MICAELA and [facility] Date Signed: 01/30/2018 02:12 PM Electronically Signed By:Yolanda Oro [facility] CM Progress Note CM Note CM Note Notes: Pts case reviewed in tx rounds. Pt will d/c with Family and [facility] when medically stable. CM to follow. Date Signed: 02/03/2018 02:13 PM Electronically Signed By:BRENDA Farah [facility] Progress Note CM Note CM Note Notes: Pts case discussed w/ DONNIE Sierra. Updates sent to [facility]. CM to follow. Plan: Family ; RN, [facility] Date Signed: 02/06/2018 03:23 PM Electronically Signed By:BRENDA Farah [facility] CM Progress Note CM Note CM Note Notes: CM spoke to Dr. Broussard regarding d/c POC. Pt is requesting for iv fluids for hydration. CM spoke to [facility] and [facility] reports that they are able to accept her as long as Dr. Yao is ok w/ it. Dr. Broussard will speak to Dr. Yao. CM to follow. Plan: [facility]; RN, [facility] [facility] Date Signed: 02/09/2018 03:42 PM Electronically Signed By:BRENDA Farah Case Management Discharge Plan Note Case Management Discharge Discharge Order Complete? Answers: Yes Patient to Obtain Answers: via Family Medications Transportation Arranged Answers: Family/Friends EMTALA Complete Answers: No Case Management Transport Answers: No Form Complete Faxed Final Orders Answers: Yes Agency/Facility Transfer Answers: Yes Report Printed & Faxed to Receiving Agency Family Notified Answers: No Discharge Comments Notes: Pts case discussed w/ Dr. Jameson and Radha, RN. Pt is being d/c today. Pt will get iv fluids through [facility]. Referral sent. Nancy from [facility] spoke w/ pt. DC orders sent to Family and [facility]ague. CM available for changes. Plan: [facility]; RN, DIE MAKER TRIM, SW with [facility] Date Signed: 02/10/2018 01:01 PM Electronically Signed By:BRENDA Farah Intervention Information
--- NOTE | 2018-02-10 13:52 | SOAPPROG ---
MARIYA Progress Note Assessment/Plan: Assessment:Plan: 1) diarrhea - high fat content in stool, panc elastase pending, setup for bacterial overgrowth. Stop cholestyramine given high fat in stool, conitnue panc enzymes and start Xifaxan 550mg po tid for 14 days 2) Fluid - says gets dehydrated quickly if ostomy outpt increases, has some setup at home for IV infusions 3) diet - low fat diet 4) adrenal - very low am cortisol, needs jeff stim test / can be as outpt, discussed with Dr Broussard 02/09/18 14:34 02/10/18 13:50 as above 1) diarrhea - stool fecal elastase was nl, but still try creon for approx 2 weeks. The Xifaxan maybe the med that is helpful will ask my office to try to approve 2) adrenal - outpt jeff stim test to be arranged 3) diet - low fat given fat in stool pt to be discharged today Subjective: cc- diarrhea a bit better, happy to be getting out of hospital not much abdo pain no blood no f/c/s Objective: Vital Signs Temp Pulse Resp BP Pulse Ox 36.7 C 78 15 106/65 98 02/10/18 08:00 02/10/18 08:00 02/10/18 08:00 02/10/18 08:00 02/10/18 08:00 Laboratory Results 02/08/18 06:20 02/08/18 06:20 02/09/18 02/10/18 02/11/18 05:59 05:59 05:59 Intake Total 1847 1500 Output Total 1000 Balance 847 1500 A+Ox3 [id number] +BS, soft ICD10 Worksheet Patient Problems: Problems Problem Status Onset Dehydration Acute Syncope Acute Abdominal abscess Acute Abdominal pain Acute Compression fracture of body of thoracic vertebra Acute Hypochloremia Acute Intractable vomiting Acute Near syncope Acute Shortness of breath Acute Volume depletion Acute
--- NOTE | 2018-02-10 14:35 | PDDCSUM ---
Discharge Summary Discharge Summary: Date of Admission: January 26, 2018 Date of Discharge: February 10, 2018 Discharge Diagnoses: Chronic diarrhea (high output in ostomy) Recurrent nausea and vomiting, improved Malabsorption, 2/2 prior abd surgeries Low cortisol- possible adrenal insufficiency T5-T9 compression fractures Chronic pain Osteoporosis Primary Amenorrhea Seizure disorder Underweight Protein Calorie Malnnutrition Admission Diagnoses: Dehydration Syncope Consultants: Neurosurgery-Dr. Stanley Ny, [facility] Course: The patient is a 22-year-old female with complex GI history of intestinal dysmotility, pseudo obstruction, total colectomy, ileostomy, gastrectomy with Chandler-en-Y gastrojejunostomy, median arcuate ligament syndrome release who returned to the hospital with syncope secondary to acute dehydration secondary to nausea, vomiting, and high volume output in her ostomy. She was initially treated with IV antiemetics and IV fluids. GI was consulted and patient was put on Questran and glutamine and pancreatic enzymes. Her cholestyramine was discontinued. She was started on rifaximin empirically for SIBO. Patient also has old and new compression fractures of her thoracic spine secondary to osteoporosis. She had undergone kyphoplasty on prior admissions. Neuro surgery was consulted for multiple compression fractures; he recommended that patient be evaluated and treated by an station mechanic apprentice prior to pursuing spine surgery. Patient underwent additional kyphoplasty, from T7-T10. Patient was found to have very low a.m. cortisol and is suspected to have adrenal insufficiency. She is recommended to get an outpatient ACTH stimulation test. She was started on dexamethasone. Patient was referred to outpatient Endocrinology. Patient had already been taking vitamin-D and calcium supplements. She is not a candidate for bisphosphonates because of gastrectomy. Patient improved over the course of 2 week but requires IV fluid administration at home to avoid recurrent dehydration. Patient was set up with home IV fluids. She was given a PICC line and set up with home healthcare. Physical Exam: Patient is ambulatory. Alert, in no acute distress. Condition: Fair. Discharged to: Home with home healthcare. Pertinent tests/labs/imaging: Thoracic spine MRI: Multiple moderate to severe compression fractures of T spine from T1 through T11, worse at T5-T9 levels. Previous T5 and T6 kyphoplastyies. Severe kyphosis T5-T6. Vitamin D level-34.5 Cortisol a.m.-0.4 Stool studies: Percent fat 30, elastase 384. Medications: Please see med rec form. Special instructions: Return to hospital for worsening symptoms. Do not stop the steroid abruptly, as it needs to be tapered down. Follow up: GI - Dr. Karen Zamora in 2 weeks. Gen Surg - Dr. Yao, as scheduled. PCP- Dr. Umu Hill- in 1 week. Pain Mgmt in 2 weeks. Endocrinology - Dr. Dunn - in 2 weeks. Palliative care - as scheduled - [facility]. Greater than 30 minutes of total time was spent on counseling and coordination of care for this patient's discharge.
== END 2018-02-10 14:17 | disposition home health service (06) | DRG 518 ==
LOC: INTOOBSV 17:03 → F3E 17:53 → OBSVTOIN 01-27 14:03
PROVIDERS: ADMIT Internal Medicine; ATTEND Internal Medicine
PROC: 02H633Z Insertion of Infusion Device into Right Atrium, Percutaneous Approach (ICD-10-PCS; 2018-02-02)
PROC: 0RU Upper Joints, Supplement (ICD-10-PCS; principal; 2018-02-04 15:30)
DX: M80.08XA Age-related osteoporosis with current pathological fracture, vertebra(e), initial encounter for fracture (principal); K91.2 Postsurgical malabsorption, not elsewhere classified; E27.40 Unspecified adrenocortical insufficiency; E46 Unspecified protein-calorie malnutrition; K91.1 Postgastric surgery syndromes; K52.9 Noninfective gastroenteritis and colitis, unspecified; E86.0 Dehydration; G89.29 Other chronic pain; N91.2 Amenorrhea, unspecified; G40.909 Epilepsy, unspecified, not intractable, without status epilepticus; Z93.2 Ileostomy status
CPT/HCPCS: 82710-90; 96374; C1751; G0378; J1170; J1200; J1630; J2001; J2060; J2550; J2704; J3010

== ENCOUNTER 2018-02-21 21:47 | Inpatient (IN) | payer BC, MEDICAID ==
--- NOTE | 2018-02-21 22:38 | EDPHY ---
H & P Stated Complaint: DEHAYDRATION, DUMPING SYNDROME WITH ILEOSTOMY X2 DAYS Time Seen by Provider: 02/21/18 22:15 HPI/ROS: HPI The patient presents with nausea and diarrhea for the last 1 day, comes in from home. She was recently hospitalized from January 26 to for dehydration. She has a complex GI history of intestinal dysmotility, pseudo-obstruction, total colectomy, ileostomy, gastrectomy with Chandler-en-Y gastro jejunostomy, median arcuate ligament syndrome release. She has been admitted many times to the hospital over the last several years. She also is dealing with new compression fractures of her thoracic spine secondary to osteoporosis The patient has had nausea throughout the day today and has been using her p.r.n. Medications without much improvement in her symptoms. She has had dry heaving as well. She has been able to take her pills but notices that they come out of her ostomy within 15 min with large amounts of fluid and occasional blood. With this, she has had increased symptoms of back pain and nausea. She feels that because of the rapid transit through her GI tract, her body is not able to absorb the medications that she needs. She is feeling lightheaded and occasionally seeing spots when she stands. She does do 1 L of supplemental IV fluid a day via PICC line, however this is not helping her much. When she was discharged from the hospital, she was started on rifaximin empirically for SI p.o., however she is not able to take this. She is also on Questran, gluten mean and pancreatic enzymes as new medications for her as as recommended by GI. REVIEW OF SYSTEMS 10 systems were reviewed and negative with the exception of the elements mentioned in the history of present illness. PMHx: Complex past GI and surgical history as detailed above Soc Hx: Lives independently, here with her partner PHYSICAL General Appearance: Alert, no distress Eyes: Pupils equal and round no pallor or injection ENT, Mouth: Mucous membranes dry Respiratory: There are no retractions, lungs are clear to auscultation Cardiovascular: Regular rate and rhythm Gastrointestinal: Abdomen is soft, scaphoid, multiple abdominal surgical scars , ostomy with no current output Neurological: A&O, moves all extremities Skin: Warm and dry, no rashes Musculoskeletal: Neck is supple non tender Extremities: symmetrical, full range of motion Psychiatric: Patient is oriented X 3, there is no agitation Source: Patient Exam Limitations: No limitations - Personal History LMP (Females 10-55): Irregular Current Tetanus/Diphtheria Vaccine: Yes Tetanus Vaccine Date: 2011 - Medical/Surgical History Hx Asthma: No Hx Chronic Respiratory Disease: No Hx Diabetes: No Hx Cardiac Disease: No Hx Renal Disease: No Hx Cirrhosis: No Hx Alcoholism: No Hx HIV/AIDS: No Hx Splenectomy or Spleen Trauma: No Other PMH: large intestine removed, [facility] 09/07 contINent illiostomy, intestinal pseudo obstruction, j tube placed- REMOVED, g tube placed- REMOVED, gastroparesis, epilepsy--. T3-12 FX , KYPHOPLASTY X2 2018, gastrectomy. ? ADRENAL INSUFF, OSTEOPOROSIS - Social History Smoking Status: Never smoked Constitutional: Initial Vital Signs Temperature (C) 36.5 C 02/21/18 21:53 Heart Rate 100 02/21/18 21:53 Respiratory Rate 18 02/21/18 21:53 Blood Pressure 99/76 L 02/21/18 21:53 O2 Sat (%) 100 02/21/18 21:53 O2 Delivery Mode Room Air Allergies/Adverse Reactions: milk Allergy (Verified 02/21/18 21:51) mustard Allergy (Verified 02/21/18 21:51) Home Medications: Medication Instructions Recorded Multivitamins [Multivitamin (*)] 1 each PO DAILY 01/08/18 lamoTRIgine [LamICTAL 100 MG (*)] 50 mg PO BID 01/08/18 Cholecalciferol Vit D3 [Vitamin D3 1,000 units PO DAILY 01/20/18 (*)] Dicyclomine [Bentyl 10 MG (*)] 10 mg PO QID PRN #120 cap 01/25/18 Promethazine HCl [Phenergan 25mg 12.5 mg PO Q6HRS PRN #20 tab 01/25/18 (*)] busPIRone [Buspar (*)] 5 mg PO TID #90 tab 01/25/18 Alteplase [Cathflo Activase 2 mg 2 mg IVP PRN PRN vial 02/10/18 (*)] Dexamethasone [Decadron 2 MG (*)] 1 mg PO DAILY #30 tab 02/10/18 Glutamine [Glutasolve Resource] 1 each PO TID #100 pkt 02/10/18 LORazepam [Ativan] 1 mg PO DAILY PRN #14 tablet 02/10/18 Lipase 12,000/Amylase/Protease 1 cap PO TIDMEAL #100 cap 02/10/18 [Creon 12 (*)] Ns [NS IV 1000ml (*)] 1,000 ml IV DAILY bag 02/10/18 Rifaximin [Xifaxan] 550 mg PO BID #25 tab 02/10/18 oxyCODONE ORAL SOLUTION 20 mg PO Q6H PRN #1 bottle 02/10/18 [Roxicodone Intensol] Medical Decision Making Differential Diagnosis: 22-year-old female with history of intestinal dysmotility, pseudo obstruction, multiple operations including total colectomy, ileostomy, gastrectomy with Chandler- en-Y presents from home with 2 days of progressive lightheadedness, nausea, dry heaves, large output diarrhea. She says when she left the hospital, she never felt completely better but was able to manage her symptoms, however over the last 2 days things have progressively gotten worse. On exam, she does appear clinically dehydrated, she has normal vital signs, her abdominal exam is benign. Differential diagnosis includes progressive dehydration, worsening intestinal dysmotility, gastroenteritis. In the emergency department, patient was given IV fluids, Phenergan, Dilaudid for symptomatic relief. Labs were checked and were unremarkable. Given patient 's ongoing symptoms, I will admit her to the hospitalist. I have discussed the case with Dr. Curry. - Data Points Laboratory Results: Laboratory Results 02/21/18 22:20 02/21/18 22:20 02/21/18 02/21/18 22:20 22:20 WBC 7.43 10^3/uL 10^3/uL (3.80-9.50) RBC 3.99 10^6/uL L 10^6/uL (4.18-5.33) Hgb 12.3 g/dL L g/dL (12.6-16.3) Hct 36.2 % L % (38.0-47.0) MCV 90.7 fL fL (81.5-99.8) MCH 30.8 pg pg (27.9-34.1) MCHC 34.0 g/dL g/dL (32.4-36.7) RDW 12.4 % % (11.5-15.2) Plt Count 328 10^3/uL 10^3/uL (150-400) MPV 9.1 fL fL (8.7-11.7) Neut % (Auto) 67.6 % % (39.3-74.2) Lymph % (Auto) 24.5 % % (15.0-45.0) [place] % (Auto) 6.9 % % (4.5-13.0) Eos % (Auto) 0.5 % L % (0.6-7.6) Baso % (Auto) 0.1 % L % (0.3-1.7) Nucleat RBC Rel Count 0.0 % % (0.0-0.2) Absolute Neuts (auto) 5.02 10^3/uL 10^3/uL (1.70-6.50) Absolute Lymphs (auto) 1.82 10^3/uL 10^3/uL (1.00-3.00) Absolute Monos (auto) 0.51 10^3/uL 10^3/uL (0.30-0.80) Absolute Eos (auto) 0.04 10^3/uL 10^3/uL (0.03-0.40) Absolute Basos (auto) 0.01 10^3/uL L 10^3/uL (0.02-0.10) Absolute Nucleated RBC 0.00 10^3/uL 10^3/uL (0-0.01) Immature Gran % 0.4 % % (0.0-1.1) Immature Gran # 0.03 10^3/uL 10^3/uL (0.00-0.10) Sodium 140 mEq/L mEq/L (135-145) Potassium 4.4 mEq/L mEq/L (3.3-5.0) Chloride 110 mEq/L mEq/L (97-110) Carbon Dioxide 22 mEq/l mEq/l (22-31) Anion Gap 8 mEq/L mEq/L (6-14) BUN 5 mg/dL L mg/dL (7-23) Creatinine 0.5 mg/dL L mg/dL (0.6-1.0) Estimated GFR > 60 Glucose 96 mg/dL mg/dL (70-100) Calcium 9.0 mg/dL mg/dL (8.5-10.4) Total Bilirubin 0.2 mg/dL mg/dL (0.1-1.4) AST 19 IU/L IU/L (14-46) ALT 10 IU/L IU/L (9-52) Alkaline Phosphatase 115 IU/L IU/L (38-126) Total Protein 6.4 g/dL g/dL (6.3-8.2) Albumin 3.8 g/dL g/dL (3.5-5.0) Medications Given: Discontinued Medications Hydromorphone HCl (Dilaudid) 0.5 mg IVP EDNOW ONE Stop: 02/21/18 22:42 Last Admin: 02/21/18 22:50 Dose: 0.5 mg Sodium Chloride (Ns) 1,000 mls @ 0 mls/hr IV EDNOW ONE; Wide Open PRN Reason: Protocol Stop: 02/21/18 22:42 Last Admin: 02/21/18 22:49 Dose: 1,000 mls Promethazine HCl (Phenergan) 12.5 mg IVP ONCE ONE Stop: 02/21/18 22:42 Last Admin: 02/21/18 22:49 Dose: 12.5 mg Departure - Departure Disposition: [facility] Clinical Impression: Lightheadedness, Nausea, Compression fracture of body of thoracic vertebra Diarrhea Qualifiers: Diarrhea type: due to malabsorption Qualified Code(s): K90.9 - Intestinal malabsorption, unspecified; R19.7 - Diarrhea, unspecified; R19.7 - Diarrhea, unspecified Condition: Fair
[2018-02-21] MEDS ORDERED: NS 1,000 ML IV ONE (22:41)
[2018-02-21] MEDS ORDERED: PROMETHAZINE HCL 25 MG/ML INJ IVP ONE (22:41)
[2018-02-21] MEDS ORDERED: HYDROmorphONE/DILAUDID 2 MG/ML INJ IVP ONE (22:41)
[2018-02-21 23:12] LABS: PLATELET COUNT 328 10^3/uL (150-400)
[2018-02-21] MEDS ORDERED: ONDANSETRON 4 MG/2 ML VIAL IVP PRN (23:51)
[2018-02-21] MEDS ORDERED: ACETAMINOPHEN 325 MG TAB PO PRN (23:51)
[2018-02-21] MEDS ORDERED: ONDANSETRON DISINTEGRATING 4 MG TAB PO PRN (23:51)
[2018-02-22] MEDS: PROMETHAZINE HCL 25 MG/ML INJ IVP PRN ×4 (00:30→20:29)
--- NOTE | 2018-02-22 00:35 | PDGENHP ---
History and Physical - Chief Complaint High ostomy output, dehydration - History of Present Illness 22 y/o female with a complicated gastrointestinal history of dysmotility/pseudo- obstruction s/p total colectomy with continent ileostomy placement, gastrectomy with Chandler-en-Y gastrojejunostomy, median arcuate ligament syndrome s/p release, kyphoplasty and numerous hospitalizations for dehydration and electrolyte disturbances presents with ongoing high output from her ostomy and dehydration. She was recently admitted for similar issues from 01/26-02/10. During most recent stay pancreatic enzymes, Questran, glutamine, Rifaximin, and dexamethasone (low AM cortisol) were added for attempted control. The patient tells me she had a few days but her ostomy output remains very high. Her oral medications are passing through her system so quickly that they cannot be absorbed. As a result, for the last 2-3 days she has been struggling with uncontrolled pain and nausea. She denies infectious symptoms such as fever, chills, abdominal pain. She has been receiving daily IVF via a PICC line since discharge. She has not yet seen surgery or GI for follow-up since discharge. Case discussed with ED physician Dr. Yeboah; records reviewed and summarized above. History Information - Allergies/Home Medication List Allergies/Adverse Reactions: milk Allergy (Verified 02/21/18 21:51) mustard Allergy (Verified 02/21/18 21:51) Home Medications: Multivitamins [Multivitamin (*)] 1 each PO DAILY 01/08/18 [Last Taken 01/26/18] lamoTRIgine [LamICTAL 100 MG (*)] 50 mg PO BID 01/08/18 [Last Taken 01/26/18 09: 00] Cholecalciferol Vit D3 [Vitamin D3 (*)] 1,000 units PO DAILY 01/20/18 [Last Taken 01/26/18] I have personally reviewed and updated: family history, medical history Past Medical History: See HPI - Past Medical History Additional medical history: Intestinal pseudoobstruction s/p colectomy and gastrectomy, SMA syndrome, median arcuate ligement syndrome, gastroparesis, vertebral compression fractures, seizure disorder - Surgical History Additional surgical history: total colectomy with continent ileostomy formation , gastrectomy with Chandler-en-Y gastrojejunostomy, median arcuate ligament release , SMA syndrome release, G and J tubes which are now removed - Family History Additional family history: VTE - Social History Smoking Status: Never smoked Additional social history: Lives with el and 2 other roommates, 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 Review of Systems Review of Systems: ROS: 10pt was reviewed & negative except for what was stated in HPI & below Physical Exam Physical Exam: Temp Pulse Resp BP Pulse Ox 36.5 C 100 18 99/76 L 100 02/21/18 21:53 02/21/18 21:53 02/21/18 21:53 02/21/18 21:53 02/21/18 21:53 Constitutional: chronically ill appearing, uncomfortable Eyes: PERRL, EOMI Ears, Nose, Mouth, Throat: moist mucous membranes, no oral mucosal ulcers Cardiovascular: regular rate and rhythym, no murmur, rub, or gallop Respiratory: no respiratory distress, clear to auscultation Gastrointestinal: soft, non-tender abdomen, other (Continent ileostomy RLQ), No guarding, No rebound, No distension Skin: warm, normal color Musculoskeletal: full muscle strength, no muscle tenderness Neurologic: AAOx3, CN II-XII Intact Psychiatric: interacting appropriately, not anxious Lab Data & Imaging Review 02/21/18 22:20 02/21/18 22:20 WBC 7.43 10^3/uL (3.80-9.50) 02/21/18 22:20 RBC 3.99 10^6/uL (4.18-5.33) L 02/21/18 22:20 Hgb 12.3 g/dL (12.6-16.3) L 02/21/18 22:20 Hct 36.2 % (38.0-47.0) L 02/21/18 22:20 MCV 90.7 fL (81.5-99.8) 02/21/18 22:20 MCH 30.8 pg (27.9-34.1) 02/21/18 22:20 MCHC 34.0 g/dL (32.4-36.7) 02/21/18 22:20 RDW 12.4 % (11.5-15.2) 02/21/18 22:20 Plt Count 328 10^3/uL (150-400) 02/21/18 22:20 MPV 9.1 fL (8.7-11.7) 02/21/18 22:20 Neut % (Auto) 67.6 % (39.3-74.2) 02/21/18 22:20 Lymph % (Auto) 24.5 % (15.0-45.0) 02/21/18 22:20 [place] % (Auto) 6.9 % (4.5-13.0) 02/21/18 22:20 Eos % (Auto) 0.5 % (0.6-7.6) L 02/21/18 22:20 Baso % (Auto) 0.1 % (0.3-1.7) L 02/21/18 22:20 Nucleat RBC Rel Count 0.0 % (0.0-0.2) 02/21/18 22:20 Absolute Neuts (auto) 5.02 10^3/uL (1.70-6.50) 02/21/18 22:20 Absolute Lymphs (auto) 1.82 10^3/uL (1.00-3.00) 02/21/18 22:20 Absolute Monos (auto) 0.51 10^3/uL (0.30-0.80) 02/21/18 22:20 Absolute Eos (auto) 0.04 10^3/uL (0.03-0.40) 02/21/18 22:20 Absolute Basos (auto) 0.01 10^3/uL (0.02-0.10) L 02/21/18 22:20 Absolute Nucleated RBC 0.00 10^3/uL (0-0.01) 02/21/18 22:20 Immature Gran % 0.4 % (0.0-1.1) 02/21/18 22:20 Immature Gran # 0.03 10^3/uL (0.00-0.10) 02/21/18 22:20 Sodium 140 mEq/L (135-145) 02/21/18 22:20 Potassium 4.4 mEq/L (3.3-5.0) 02/21/18 22:20 Chloride 110 mEq/L (97-110) 02/21/18 22:20 Carbon Dioxide 22 mEq/l (22-31) 02/21/18 22:20 Anion Gap 8 mEq/L (6-14) 02/21/18 22:20 BUN 5 mg/dL (7-23) L 02/21/18 22:20 Creatinine 0.5 mg/dL (0.6-1.0) L 02/21/18 22:20 Estimated GFR > 60 02/21/18 22:20 Glucose 96 mg/dL (70-100) 02/21/18 22:20 Calcium 9.0 mg/dL (8.5-10.4) 02/21/18 22:20 Total Bilirubin 0.2 mg/dL (0.1-1.4) 02/21/18 22:20 AST 19 IU/L (14-46) 02/21/18 22:20 ALT 10 IU/L (9-52) 02/21/18 22:20 Alkaline Phosphatase 115 IU/L (38-126) 02/21/18 22:20 Total Protein 6.4 g/dL (6.3-8.2) 02/21/18 22:20 Albumin 3.8 g/dL (3.5-5.0) 02/21/18 22:20 Assessment & Plan Assessment: 22 y/o female with a complicated gastrointestinal history of dysmotility/pseudo- obstruction s/p total colectomy with continent ileostomy placement, gastrectomy with Chandler-en-Y gastrojejunostomy, median arcuate ligament syndrome s/p release, kyphoplasty and numerous hospitalizations for dehydration and electrolyte disturbances presents with dehydration and continued high output from ostomy. Plan: 1. High ostomy output - Issue mostly continued from previous hospitalization dating 01/26-02/10. During that stay she was started on Questran, glutamine, pancreatic enzymes, rifaximin, and dexamethasone in an attempt to address various possible etiologies. She states she had some success at home but her ostomy output drastically increased over the last 3 days. This has led to dehydration and inability to absorb oral medications for control of pain and nausea. She has been receiving daily IVF via PICC line at home. - Admit for observation - mIVF, anti-emetics PRN - Will check GI PCR to rule out infection - If not improving conservatively, may require GI and/or surgical involvement 2. T5-T9 compression fractures - Possible obtained during recent seizure event. She controls pain with oxycodone at home but this has not been working over last few days due to high ostomy output. - Dilaudid IV PRN for pain control for now 3. Suspected adrenal insufficiency - Low AM cortisol during recent admission; she was recommended for outpatient cosyntropin stimulation test during last admission. - Continue dexamethasone pending reconciliation 4. Intestinal dysmotility - S/p a host of surgical interventions including total colectomy and gastrectomy. 5. SMA syndrome, median arcuate ligament syndrome: S/p surgical release with Dr Yao 6. Seizures disorder - Continue home meds pending reconciliation 7. Severe protein calori malnutrition - Long standing issue for this patient Diet - Clears, ADAT Code - Full Ppx - Low risk, ambulate TID Dispo - Admit under observation status
[2018-02-22] MEDS: HYDROmorphONE/DILAUDID 1 MG/ML INJ IVP PRN ×8 (01:01→23:23)
[2018-02-22] MEDS: LORazepam 2 MG/ML INJ IVP PRN ×4 (01:16→20:29)
[2018-02-22] MEDS: NS 1,000 ML IV SCH ×2 (01:17→14:11)
[2018-02-22 06:15] LABS: PLATELET COUNT 251 10^3/uL (150-400)
--- NOTE | 2018-02-22 12:10 | GCON ---
REFERRING PHYSICIAN: Dr. Broussard CHIEF COMPLAINT: Dehydration with high ostomy output. HISTORY OF PRESENT ILLNESS: I have been asked to see this 22-year-old woman by Dr. Broussard in consultation regarding complicated GI history, dehydration, and high ostomy/ileostomy output. Patient has a very complex history and has history of intestinal dysmotility and history of pseudo-obstruction. She has moved from [place]. She previously has been followed at the [facility] for a complicated GI history. 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 She has had history of multiple bowel obstructions and pseudo-obstruction. She has undergone a total colectomy with continent ileostomy. She is also reported to have history of gastroparesis; however, in reviewing the records, she has had a normal gastric emptying study in March of this year. She has had multiple surgeries this year with some complications. She had a CT scan of her abdomen in June and was diagnosed with median arcuate ligament syndrome. She underwent surgery with release, as well as SMA syndrome release. She had a near total gastrectomy with gastrojejunostomy. She had previously had a venting G-tube and J-tube. These were removed at the time of surgery this past spring. She has recently been in the hospital for nausea, vomiting with high ostomy output. She has undergone a recent evaluation and has been tried empirically on Xifaxan for small intestinal bacterial overgrowth. She has had no significant improvement on Xifaxan. She has also been empirically been treated with pancreatic enzymes. She has had a stool for fecal elastase, which was normal. She also reportedly had been worked up or is being worked up for adrenal insufficiency. She is also status post kyphoplasty and has had numerous hospitalizations for dehydration, electrolyte disturbances with high output ostomy. She presented to the hospital again with nausea and high-output with dehydration. She has had no fevers or chills or significant abdominal pain. She has been receiving IV fluids via PICC line since her last discharge. It had been recommended that patient be seen at a tertiary care center, such as [facility]; however, patient has not established care. Asked to see patient for further evaluation. PAST MEDICAL HISTORY: Remarkable for intestinal pseudo obstruction, questionable history of an interstitial cell Cajal deficiency, status post colectomy and subtotal gastrectomy with Chandler-en-Y, history of SMA and median arcuate ligament syndrome, history of vertebral compression fractures, and seizure disorder. SURGERY HISTORY: Extensive, including total colectomy with continent ileostomy formation, gastrectomy with Chandler-en-Y gastrojejunostomy, median arcuate release and SMA syndrome release. She has had previous gastrostomy tube and J-tubes, which have been removed. She has also had previous history of complications with intraabdominal abscess from surgery requiring drainage and prior histories of abdominal obstruction from adhesions. FAMILY HISTORY IS: Negative as her pain today is the chief complaint. SOCIAL HISTORY: Nonsmoker. Lives with a fiance and 2 other roommates. 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 MEDICATIONS: Include a multivitamin, Lamictal, vitamin D 3, previously has been treated with Xifaxan and pancreatic enzyme supplementation. REVIEW OF SYSTEMS: Negative 10 systems other than mentioned in HPI. PHYSICAL EXAMINATION: GENERAL: An ill-appearing woman lying in bed. VITAL SIGNS: Temperature is 36.5, pulse 100, respiratory rate 18, 99/76, pulse ox 100 % . HEENT: Normocephalic, atraumatic. Mucous membranes moist. NECK: No cervical adenopathy. No thyromegaly. CARDIAC: Normal S1, S2 without murmur. LUNGS: Clear to auscultation. GASTROINTESTINAL: Soft, nontender. Continent ileostomy in the right lower quadrant. No guarding. No rebound. Nondistended. SKIN: Warm, dry, intact. EXTREMITIES: Without clubbing, cyanosis, edema. MUSCULOSKELETAL: Nontender. No muscle tenderness. NEURO: Nonfocal. PSYCH: Alert, oriented x3 with appropriate affect, somewhat sleepy. LABORATORY DATA: Hemoglobin 12.3, hematocrit 36.2, white count of 7.43. Serum sodium 140, potassium 4.4, chloride 110, CO2 22, blood sugar 96, BUN of 5, creatinine 0.5. 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 Patient has had recent abdominal surgery earlier this year. She has a continent ileostomy with high output and nausea. RECOMMENDATIONS: 1. A clear liquid diet as tolerated. 2. IV hydration. 3. Supportive care with antiemetics. 4. Would recommend small bowel follow-through, rule out intestinal obstruction or obstruction at the level of the ostomy. May want to consider surgical consult to re-evaluate ostomy. 5. Would also recommend nutrition consult. 6. Agree with stool studies and PCR, rule out infectious process. 7. If no evidence of obstruction and continued high output, can consider the use of Sandostatin LAR for management of high ostomy output. 8. Patient probably would be better served at a tertiary care center, such as [facility] due to her complicated and unusual medical history. Thank you for allowing me to participate in the care of this patient. /[id number]/MODL MTDD
--- NOTE | 2018-02-22 12:36 | HOSPPROG ---
Hospitalist Progress Note Assessment/Plan: 22 y/o female with a complicated gastrointestinal history of dysmotility/pseudo- obstruction s/p total colectomy with continent ileostomy placement, gastrectomy with Chandler-en-Y gastrojejunostomy, median arcuate ligament syndrome s/p release, kyphoplasty and numerous hospitalizations for dehydration and electrolyte disturbances presents with dehydration and continued high output from ostomy. Plan: 1. High ostomy output - Issue mostly continued from previous hospitalization dating 01/26-02/10. During that stay she was started on Questran, glutamine, pancreatic enzymes, rifaximin, and dexamethasone in an attempt to address various possible etiologies. She states she had some success at home but her ostomy output drastically increased over the last 3 days. This has led to dehydration and inability to absorb oral medications for control of pain and nausea. She has been receiving daily IVF via PICC line at home. - mIVF, anti-emetics PRN - GI PCR to rule out infection - GI consulted this AM, recommend small bowel follow through to rule out intestinal obstruction or obstruction at the level of the ostomy, consider surgical consult to re-evaluate ostomy, nutrition consult 2. T5-T9 compression fractures - Possible obtained during recent seizure event. She controls pain with oxycodone at home but this has not been working over last few days due to high ostomy output. - Dilaudid IV PRN for pain control for now 3. Suspected adrenal insufficiency - Low AM cortisol during recent admission; she was recommended for outpatient cosyntropin stimulation test during last admission. - Continue dexamethasone 4. Intestinal dysmotility - S/p a host of surgical interventions including total colectomy and gastrectomy. 5. SMA syndrome, median arcuate ligament syndrome: S/p surgical release with Dr Yao 6. Seizures disorder - Continue home meds 7. Severe protein calori malnutrition - Long standing issue for this patient Diet - Clears, ADAT Code - Full Ppx - Low risk, ambulate TID Dispo - Pending clinical course Subjective: Patient reports nausea this afternoon Objective: Vital Signs Temp Pulse Resp BP Pulse Ox 36.6 C 60 14 118/80 97 02/22/18 11:20 02/22/18 11:20 02/22/18 11:20 02/22/18 11:20 02/22/18 11:20 Microbiology 02/22/18 05:56 Gastrointestinal Tract Panel (PCR) - Final Stool No Organism Detected By Pcr Laboratory Results 02/22/18 05:30 02/22/18 05:30 02/21/18 02/22/18 02/23/18 05:59 05:59 05:59 Intake Total 1100 Output Total 1000 Balance 100 - Physical Exam Constitutional: chronically ill appearing Eyes: PERRL Ears, Nose, Mouth, Throat: dry mucous membranes Cardiovascular: regular rate and rhythym Respiratory: no respiratory distress Gastrointestinal: tenderness, No guarding, No rebound, No distension Skin: warm Neurologic: AAOx3 Psychiatric: interacting appropriately ICD10 Worksheet Patient Problems: Problems Problem Status Onset Compression fracture of body of thoracic vertebra Acute Diarrhea Acute Lightheadedness Acute Nausea Acute Abdominal abscess Acute Abdominal pain Acute Dehydration Acute Hypochloremia Acute Intractable vomiting Acute Near syncope Acute Shortness of breath Acute Syncope Acute Volume depletion Acute
[2018-02-22] MEDS ORDERED: DICYCLOMINE 10 MG CAP PO PRN (13:48)
[2018-02-22] MEDS ORDERED: ALTEPLASE 2 MG VIAL IVP PRN (13:48)
--- NOTE | 2018-02-22 16:55 | ASMTCMCOM ---
CM Note CM Note Notes: Reviewed chart. Pt admitted for dehydration, pain, nausea and increased ostomy output. History is extensive and includes T5-T9 compression fractures, ileostomy, dysmotility s/p total colectomy, SMA syndrome, suspected adrenal insufficiency, seizure disorder, malnutrition. Pt has had several recent hospitalizations at this facility. Pt is engaged. She lives with her fiance and two roommates. She is a student at . Discharge needs remain unclear at this time. Pt is current with [facility] (RN/PT/OT/SW), [facility], and [facility]. CM will continue to follow. Discharge Plan: To be determined Date Signed: 02/22/2018 04:53 PM Electronically Signed By:Ashleigh Jiménez RN
--- NOTE | 2018-02-22 17:43 | PDMN ---
Medical Necessity Medical necessity: MCG: M123 dehydration A-1 day: persistent increased high outpt from ostomy. further eval, monitoring needed. IVF, IV antiemetics, IV antivan, IV dilaudid, status changed to INPT 02/22/18 for ongoing med nec. - eval of GI tract.
[2018-02-22] MEDS: busPIRone 5 MG TAB PO SCH ×2 (18:51)
[2018-02-22] MEDS: LIPASE 12,000/AMYLASE/PROTEASE (CREON) 1 CAP PO SCH (18:52)
[2018-02-22] MEDS: GLUTAMINE (GLUTASOLVE) 1 EACH PKT PO SCH ×2 (18:56)
[2018-02-22] MEDS ORDERED: RIFAXIMIN 550 MG TAB PO SCH (21:00)
[2018-02-22] MEDS: lamoTRIgine 100 MG TAB PO SCH (22:15)
[2018-02-22] MEDS ORDERED: HALOPERIDOL LACT 5 MG/ML INJ IVP PRN (22:46)
[2018-02-23] MEDS: LORazepam 2 MG/ML INJ IVP PRN ×3 (00:54→21:15)
[2018-02-23] MEDS: HYDROmorphONE/DILAUDID 1 MG/ML INJ IVP PRN ×7 (01:28→22:52)
[2018-02-23] MEDS: PROMETHAZINE HCL 25 MG/ML INJ IVP PRN ×4 (02:41→23:32)
[2018-02-23] MEDS: LIPASE 12,000/AMYLASE/PROTEASE (CREON) 1 CAP PO SCH ×3 (11:57→17:24)
[2018-02-23] MEDS: MULTIVITAMINS 1 EACH TAB PO SCH (12:01)
[2018-02-23] MEDS: GLUTAMINE (GLUTASOLVE) 1 EACH PKT PO SCH ×3 (12:01→22:57)
[2018-02-23] MEDS: lamoTRIgine 100 MG TAB PO SCH ×2 (12:02→22:56)
[2018-02-23] MEDS: CHOLECALCIFEROL VIT D3 1,000 UNITS TAB PO SCH (12:02)
[2018-02-23] MEDS: busPIRone 5 MG TAB PO SCH ×3 (12:03→22:56)
--- NOTE | 2018-02-23 13:16 | ASMTCMCOM ---
CM Note CM Note Notes: Patient plan of care reviewed in rounds. She is a 22 year old female with complex medical history and is admitted for N/V with increased ostomy output and pain. She has home services. Referrals to current providers in allscripts these include [facility], [facility] and [facility]. CM to follow for needs. Plan: Likely to dc with resumption of all prior services when medically cleared for discharge. Date Signed: 02/23/2018 01:15 PM Electronically Signed By:Yasmine Ferguson RN
[2018-02-23] MEDS: NS 1,000 ML IV SCH ×2 (13:58→21:10)
--- NOTE | 2018-02-23 14:18 | SOAPPROG ---
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 Has had near total gastrectomy with gastrojejunostomy with release of SMA and release of Median acurate syndrome release. She is s/p total colectomy with continent ileostomy. She has recurrent episodes of dehydration from HOS (High Output Stoma). She has been treated in past with Imodium and Loperamide which has caused obstruction. She has a pic line in for hydration at home but this is not a chcf solution. Patient with seizure disorder and back fracture secondary to a seizure episode. Patient with a very difficult to manage problem. Plan: 1. Recommend trial of PPI to decrease gastric secretions (however she has had an almost total gastrectomy), Pantoprazole 40 mg po Daily in addition to 2 blockers Ranitidine BID 2. Antidiarrheals- Imodium, Loperamide, tincture of opium. Typically 4 mg 30 minutes before meals and bedtime 3. Restrict low sodium fluids, to 500 - 100 mg daily (including sports drinks) 4. Drink glucose-electrolyte solutions 1000 - 2000 ml per day ([facility] [employer] Solution- can check with dietary or pharmacy regarding these solutions), or prepared fluids (chicken broth 2 cups, with 2 cups after 2 tablespoons of sugar) 5. Can consider adding Codeine phosphate 15 - 60 mi before meals 6. Routine use of Octreotide is not use chcf (she also reports that she has been treated with this in the past without improvement) 7. Foods that can thicken stools include, applesauce, bananas, cheese, tapioca, cream of rice, marshmallows, mashed potatoes, peanut butter, rice and soda crackers. 8. Eat low sugar foods and drinks, eat salty foods, eat smaller more frequent meals, drink fluids 1/2 before or after eating (not with food) 02/23/18 14:20 Subjective: CC: dehydration Patient reports still with large volume ostomy output. Has been using PIC line at home or hydration. Output more when she eats but is constant. Objective: Vital Signs Temp Pulse Resp BP Pulse Ox 36.7 C 92 18 111/87 H 99 02/23/18 12:30 02/23/18 12:30 02/23/18 12:30 02/23/18 12:30 02/23/18 12:30 Laboratory Results 02/23/18 07:35 02/22/18 02/23/18 02/24/18 05:59 05:59 05:59 Intake Total 2400 Output Total 5500 Balance -3100 Generic Name Dose Route Start Last Admin Trade Name Stacy PRN Reason Stop Dose Admin Acetaminophen 650 mg 02/21/18 23:51 Tylenol PO 08/20/18 23:50 Q4HRS PRN Pain, Mild/Fever, Can Take PO Alteplase, Recombinant 2 mg 02/22/18 13:48 Cathflo Activase IVP 08/21/18 13:47 PRN PRN Per PICC line policy Lipase/Protease/Amylase 1 cap 02/22/18 18:00 02/23/18 12:03 Creon PO 08/21/18 17:59 1 cap TIDMEAL GABINO Administration Buspirone HCl 5 mg 02/22/18 16:00 02/23/18 12:03 Buspar PO 08/21/18 15:59 5 mg TID GABINO Administration Cholecalciferol 1,000 units 02/23/18 09:00 02/23/18 12:02 Vitamin D PO 08/22/18 08:59 1,000 units DAILY GABINO Administration Dicyclomine HCl 10 mg 02/22/18 13:48 Bentyl PO 08/21/18 13:47 QID PRN abdominal pain Glutamine 1 each 02/22/18 16:00 02/23/18 12:01 Glutasolve Resource PO 08/21/18 15:59 1 each TID GABINO Administration Haloperidol Lactate 1 mg 02/22/18 22:46 Haldol Injection IVP 08/21/18 22:45 Q6HRS PRN Nausea Hydromorphone HCl 0.4 mg 02/22/18 14:04 02/23/18 13:29 Dilaudid IVP 03/04/18 00:34 0.4 mg Q2HRS PRN Administration Pain, Severe Unable to Take PO Sodium Chloride 1,000 mls @ 100 mls/hr 02/21/18 23:45 02/23/18 13:58 Ns IV 08/20/18 23:44 1,000 mls CONT GABINO Administration Lamotrigine 50 mg 02/22/18 21:00 02/23/18 12:02 Lamictal PO 08/21/18 20:59 50 mg BID GABINO Administration Lorazepam 1 mg 02/22/18 00:55 02/23/18 13:53 Ativan Injection IVP 08/21/18 00:54 1 mg Q4HRS PRN Administration Anxiety, nausea Multivitamins 1 each 02/23/18 09:00 02/23/18 12:01 Tab-A-Yesenia PO 08/22/18 08:59 1 each DAILY GABINO Administration Ondansetron HCl 4 mg 02/21/18 23:51 Zofran IVP 08/20/18 23:50 Q4HRS PRN Nausea/Vomiting, Can't Take PO Ondansetron HCl 4 mg 02/21/18 23:51 Zofran Odt PO 08/20/18 23:50 Q4HRS PRN Nausea/Vomiting, Use 1st Promethazine HCl 25 mg 02/22/18 14:04 02/23/18 11:13 Phenergan IVP 08/20/18 23:50 25 mg Q6HRS PRN Administration Nausea/Vomiting, Use 2nd Discontinued Medications Generic Name Dose Route Start Last Admin Trade Name Freq PRN Reason Stop Dose Admin Hydromorphone HCl 0.5 mg 02/21/18 22:41 02/21/18 22:50 Dilaudid IVP 02/21/18 22:42 0.5 mg EDNOW ONE Administration Hydromorphone HCl 0.4 mg 02/22/18 00:35 02/22/18 10:35 Dilaudid IVP 03/04/18 00:34 0.4 mg Q4HRS PRN Administration Pain, Severe Unable to Take PO Sodium Chloride 1,000 mls @ 0 mls/hr 02/21/18 22:41 02/21/18 22:49 Ns IV 02/21/18 22:42 1,000 mls EDNOW ONE Administration Protocol Wide Open Promethazine HCl 12.5 mg 02/21/18 22:41 02/21/18 22:49 Phenergan IVP 02/21/18 22:42 12.5 mg ONCE ONE Administration Promethazine HCl 6.25 - 12.5 mg 02/21/18 23:51 02/22/18 05:43 Phenergan IVP 08/20/18 23:50 12.5 mg Q6HRS PRN Administration Nausea/Vomiting, Use 2nd Rifaximin 550 mg 02/22/18 21:00 02/22/18 22:15 Xifaxan PO 02/22/18 23:59 550 mg BID GABINO Administration Protocol Physical Exam - Physical Exam General Appearance: alert, no apparent distress, thin Respiratory: normal breath sounds Cardiac/Chest: regular rate, rhythm Abdomen: non-tender, soft, other (ostomy in the RLQ) Skin: normal color, warm/dry Extremities: non-tender Neuro/Psych: alert, normal mood/affect, oriented x 3 ICD10 Worksheet Patient Problems: Problems Problem Status Onset Compression fracture of body of thoracic vertebra Acute Diarrhea Acute Lightheadedness Acute Nausea Acute Abdominal abscess Acute Abdominal pain Acute Dehydration Acute Hypochloremia Acute Intractable vomiting Acute Near syncope Acute Shortness of breath Acute Syncope Acute Volume depletion Acute
--- NOTE | 2018-02-23 15:13 | HOSPPROG ---
Hospitalist Progress Note Assessment/Plan: 22 y/o female with a complicated gastrointestinal history of dysmotility/pseudo- obstruction s/p total colectomy with continent ileostomy placement, gastrectomy with Chandler-en-Y gastrojejunostomy, median arcuate ligament syndrome s/p release, kyphoplasty and numerous hospitalizations for dehydration and electrolyte disturbances presents with dehydration and continued high output from ostomy. Plan: 1. High ostomy output - Issue mostly continued from previous hospitalization dating 01/26-02/10. During that stay she was started on Questran, glutamine, pancreatic enzymes, rifaximin, and dexamethasone in an attempt to address various possible etiologies. She states she had some success at home but her ostomy output drastically increased over the last 3 days. This has led to dehydration and inability to absorb oral medications for control of pain and nausea. She has been receiving daily IVF via PICC line at home. - mIVF, anti-emetics PRN - GI PCR to rule out infection - GI consulted this AM, recommend small bowel follow through which showed rapid transit, today they recommend: -Trial of PPI, Pantoprazole 40 mg po Daily in addition to 2 blockers Ranitidine BID - Antidiarrheals- Imodium, Loperamide, tincture of opium. Typically 4 mg 30 minutes before meals and bedtime - Restrict low sodium fluids, to 500 - 100 mg daily (including sports drinks) - Drink glucose-electrolyte solutions 1000 - 2000 ml per day ([place] Solution- can check with dietary or pharmacy regarding these solutions), or prepared fluids (chicken broth 2 cups, with 2 cups after 2 tablespoons of sugar) - Can consider adding Codeine phosphate 15 - 60 mi before meals - Routine use of Octreotide is not use group home (she also reports that she has been treated with this in the past without improvement) - Consider surgical consult to re-evaluate ostomy if no improvement 2. T5-T9 compression fractures - Possible obtained during recent seizure event. She controls pain with oxycodone at home but this has not been working over last few days due to high ostomy output. - Dilaudid IV PRN for pain control for now - Consider discussing with IR for kyphoplasty of T9-10, had Kyphoplasty of T6-7 on last admission 3. Suspected adrenal insufficiency - Low AM cortisol during recent admission; she was recommended for outpatient cosyntropin stimulation test during last admission. - Continue dexamethasone 4. Intestinal dysmotility - S/p a host of surgical interventions including total colectomy and gastrectomy. 5. SMA syndrome, median arcuate ligament syndrome: S/p surgical release with Dr Yao 6. Seizures disorder - Continue home meds 7. Severe protein calori malnutrition - Long standing issue for this patient Diet - Clears, ADAT Code - Full Ppx - Low risk, ambulate TID Dispo - Pending clinical course Subjective: Patient reports rough night last night with pain Objective: Vital Signs Temp Pulse Resp BP Pulse Ox 36.7 C 92 18 111/87 H 99 02/23/18 12:30 02/23/18 12:30 02/23/18 12:30 02/23/18 12:30 02/23/18 12:30 Laboratory Results 02/23/18 07:35 02/22/18 02/23/18 02/24/18 05:59 05:59 05:59 Intake Total 2400 Output Total 5500 Balance -3100 - Physical Exam Constitutional: chronically ill appearing Eyes: PERRL Ears, Nose, Mouth, Throat: moist mucous membranes Cardiovascular: regular rate and rhythym Respiratory: no respiratory distress Gastrointestinal: soft, non-tender abdomen Skin: warm Neurologic: AAOx3 Psychiatric: interacting appropriately ICD10 Worksheet Patient Problems: Problems Problem Status Onset Compression fracture of body of thoracic vertebra Acute Diarrhea Acute Lightheadedness Acute Nausea Acute Abdominal abscess Acute Abdominal pain Acute Dehydration Acute Hypochloremia Acute Intractable vomiting Acute Near syncope Acute Shortness of breath Acute Syncope Acute Volume depletion Acute
[2018-02-23] MEDS ORDERED: LOPERAMIDE HCL 1 MG/5 ML UDL PO PRN (15:14)
[2018-02-23] MEDS: PANTOPRAZOLE SODIUM 40 MG TAB PO SCH (18:21)
[2018-02-23] MEDS: FAMOTIDINE 20 MG TAB PO SCH (22:57)
[2018-02-24] MEDS: HYDROmorphONE/DILAUDID 1 MG/ML INJ IVP PRN ×7 (01:37→21:08)
[2018-02-24] MEDS: NS 1,000 ML IV SCH ×2 (03:17→21:11)
[2018-02-24 05:45] LABS: INR 1.09 (0.83-1.16); PROTIME(PATIENT) 14.3 SEC (12.0-15.0)
[2018-02-24] MEDS: PROMETHAZINE HCL 25 MG/ML INJ IVP PRN ×3 (06:21→18:23)
--- NOTE | 2018-02-24 08:21 | SOAPPROG ---
SOAP Progress Note Assessment/Plan: Assessment: Still with high output, > 5000 cc per ostomy yesterday (per nurses note). Does not have short gut. High output on the basis of underlying motility disorder. Plan: 1. PPI and H2 blockers started (however patient has had sub-total gastrectomy) 2. Work up for secretory diarrhea. Check VIP, Gastrin and 24 our urine for 5- HIAA 3. Check HIV and TTg IgA, check Immunoglobins (rule out CIVD), Sed rate and CRP. 4. Antidiarrheals- Imodium, Loperamide, tincture of opium. Typically 4 mg 30 minutes before meals and bedtime. Would probably be best for halfway solution. 5. Continue dietary recommendations. Restrict low sodium fluids, to 500 - 100 mg daily (including sports drinks). Drink glucose-electrolyte solutions 1000 - 2000 ml per day ([place] Solution- can check with dietary or pharmacy regarding these solutions), or prepared fluids (chicken broth 2 cups, with 2 cups after 2 tablespoons of sugar). Handout left on chart. 6. Trial of Octreotide 100 mcg TIC x 3 - 5 days. 7. May want to consider Clonidine patch as in the management of diabetic enteropathy 8. Have nursing closely measure ostomy output 9. If no improvement with any of the above might be helpful to refer to Tertiary center with expertise in GI Motility 02/24/18 08:07 Subjective: CC: Diarrhea, HOS Still with high output from ostomy Objective: Vital Signs Temp Pulse Resp BP Pulse Ox 36.4 C 72 16 103/63 97 02/24/18 07:34 02/24/18 07:34 02/24/18 07:34 02/24/18 07:34 02/24/18 07:34 Laboratory Results 02/23/18 07:35 02/23/18 02/24/18 02/25/18 05:59 05:59 05:59 Intake Total 2400 4450 Output Total 5500 3550 Balance -3100 900 PT 14.3 SEC (12.0-15.0) 02/24/18 05:20 INR 1.09 (0.83-1.16) 02/24/18 05:20 Generic Name Dose Route Start Last Admin Trade Name Freq PRN Reason Stop Dose Admin Acetaminophen 650 mg 02/21/18 23:51 Tylenol PO 08/20/18 23:50 Q4HRS PRN Pain, Mild/Fever, Can Take PO Alteplase, Recombinant 2 mg 02/22/18 13:48 Cathflo Activase IVP 08/21/18 13:47 PRN PRN Per PICC line policy Lipase/Protease/Amylase 1 cap 02/22/18 18:00 02/23/18 17:24 Creon PO 08/21/18 17:59 1 cap TIDMEAL GABINO Administration Buspirone HCl 5 mg 02/22/18 16:00 02/23/18 22:56 Buspar PO 08/21/18 15:59 5 mg TID GABINO Administration Cholecalciferol 1,000 units 02/23/18 09:00 02/23/18 12:02 Vitamin D PO 08/22/18 08:59 1,000 units DAILY GABINO Administration Dicyclomine HCl 10 mg 02/22/18 13:48 Bentyl PO 08/21/18 13:47 QID PRN abdominal pain Famotidine 20 mg 02/23/18 21:00 02/23/18 22:57 Pepcid PO 08/22/18 20:59 20 mg BID GABINO Administration Glutamine 1 each 02/22/18 16:00 02/23/18 22:57 Glutasolve Resource PO 08/21/18 15:59 1 each TID GABINO Administration Haloperidol Lactate 1 mg 02/22/18 22:46 Haldol Injection IVP 08/21/18 22:45 Q6HRS PRN Nausea Hydromorphone HCl 0.4 mg 02/22/18 14:04 02/24/18 05:56 Dilaudid IVP 03/04/18 00:34 0.4 mg Q2HRS PRN Administration Pain, Severe Unable to Take PO Sodium Chloride 1,000 mls @ 100 mls/hr 02/21/18 23:45 02/24/18 03:17 Ns IV 08/20/18 23:44 1,000 mls CONT GABINO Administration Lamotrigine 50 mg 02/22/18 21:00 02/23/18 22:56 Lamictal PO 08/21/18 20:59 50 mg BID GABINO Administration Loperamide HCl 2 mg 02/23/18 15:14 Imodium Oral Liquid PO 08/22/18 15:13 QID PRN Diarrhea/Loose Stools Lorazepam 0.5 mg 02/24/18 06:17 Ativan Injection IVP 08/21/18 00:54 Q6H PRN Anxiety, nausea Multivitamins 1 each 02/23/18 09:00 02/23/18 12:01 Tab-A-Yesenia PO 08/22/18 08:59 1 each DAILY GABINO Administration Octreotide Acetate 100 mcg 02/24/18 09:00 Sandostatin SC 08/23/18 08:59 TID GABINO Ondansetron HCl 4 mg 02/21/18 23:51 Zofran IVP 08/20/18 23:50 Q4HRS PRN Nausea/Vomiting, Can't Take PO Ondansetron HCl 4 mg 02/21/18 23:51 Zofran Odt PO 08/20/18 23:50 Q4HRS PRN Nausea/Vomiting, Use 1st Pantoprazole Sodium 40 mg 02/23/18 15:45 02/23/18 18:21 Protonix PO 08/22/18 15:44 Not Given DAILY GABINO Promethazine HCl 25 mg 02/22/18 14:04 02/24/18 06:21 Phenergan IVP 08/20/18 23:50 25 mg Q6HRS PRN Administration Nausea/Vomiting, Use 2nd Discontinued Medications Generic Name Dose Route Start Last Admin Trade Name Freq PRN Reason Stop Dose Admin Hydromorphone HCl 0.5 mg 02/21/18 22:41 02/21/18 22:50 Dilaudid IVP 02/21/18 22:42 0.5 mg EDNOW ONE Administration Hydromorphone HCl 0.4 mg 02/22/18 00:35 02/22/18 10:35 Dilaudid IVP 03/04/18 00:34 0.4 mg Q4HRS PRN Administration Pain, Severe Unable to Take PO Sodium Chloride 1,000 mls @ 0 mls/hr 02/21/18 22:41 02/21/18 22:49 Ns IV 02/21/18 22:42 1,000 mls EDNOW ONE Administration Protocol Wide Open Lorazepam 1 mg 02/22/18 00:55 02/23/18 21:15 Ativan Injection IVP 08/21/18 00:54 1 mg Q4HRS PRN Administration Anxiety, nausea Promethazine HCl 12.5 mg 02/21/18 22:41 02/21/18 22:49 Phenergan IVP 02/21/18 22:42 12.5 mg ONCE ONE Administration Promethazine HCl 6.25 - 12.5 mg 02/21/18 23:51 02/22/18 05:43 Phenergan IVP 08/20/18 23:50 12.5 mg Q6HRS PRN Administration Nausea/Vomiting, Use 2nd Rifaximin 550 mg 02/22/18 21:00 02/22/18 22:15 Xifaxan PO 02/22/18 23:59 550 mg BID GABINO Administration Protocol Physical Exam - Physical Exam General Appearance: alert, no apparent distress Respiratory: lungs clear, normal breath sounds Cardiac/Chest: regular rate, rhythm Abdomen: non-tender, soft, other (ostomy in RLQ) Skin: normal color, warm/dry ICD10 Worksheet Patient Problems: Problems Problem Status Onset Compression fracture of body of thoracic vertebra Acute Diarrhea Acute Lightheadedness Acute Nausea Acute Abdominal abscess Acute Abdominal pain Acute Dehydration Acute Hypochloremia Acute Intractable vomiting Acute Near syncope Acute Shortness of breath Acute Syncope Acute Volume depletion Acute
[2018-02-24] MEDS ORDERED: fentaNYL 250 MCG/5 ML INJ ONE (08:41)
[2018-02-24] MEDS ORDERED: ROCURONIUM 50 MG/5 ML VIAL ONE (08:41)
[2018-02-24] MEDS ORDERED: PROPOFOL 200 MG/20 ML VIAL ONE (08:41)
[2018-02-24] MEDS ORDERED: LIDOCAINE 2% 5 ML SDV ONE (08:41)
[2018-02-24] MEDS ORDERED: MIDAZOLAM 2 MG/2 ML VIAL ONE (08:43)
--- NOTE | 2018-02-24 08:53 | PDANEPAE ---
ANE History of Present Illness hx of seisure causing vetebral fx ANE Past Medical History - Cardiovascular History Hx Hypertension: No Hx Arrhythmias: No Hx Chest Pain: No Hx Coronary Artery / Peripheral Vascular Disease: No Hx CHF / Valvular Disease: No Hx Palpitations: No - Pulmonary History Hx COPD: No Hx Asthma/Reactive Airway Disease: No Hx Recent Upper Respiratory Infection: No Hx Oxygen in Use at Home: No Hx Sleep Apnea: No Sleep Apnea Screening Result - Last Documented: Negative - Neurologic History Hx Cerebrovascular Accident: No Hx Seizures: No Hx Dementia: No - Endocrine History Hx Diabetes: No Hypothyroid: No Hyperthyroid: No Obesity: no - Renal History Hx Renal Disorders: No - Liver History Hx Hepatic Disorders: No - Neurological & Psychiatric Hx Hx Neurological and Psychiatric Disorders: Yes Neurological / Psychiatric History Comment: depression, anxiety,seisures - Cancer History Hx Cancer: No - Congenital Disorder History Hx Congenital Disorders: Yes Congenital History Comment: congenital bowel obstruction - GI History Hx Gastrointestinal Disorders: Yes Gastrointestinal History Comment: congential bowel obstruction; gastoparisis; intestinal psudo-obstruction. reflux,gerd,abd pain. ileostomy - Other Health History Other Health History: NONE - Chronic Pain History Chronic Pain: Yes (general abd) - Surgical History Prior Surgeries: multiple ex laps for bowel obstruction; abcess drain placement ; colectomy; illiostomy; j tube and G tube placement; ANE Review of Systems Review of systems is: negative Review of Systems: - Exercise capacity METS (RN): 3 METS ANE Patient History - Allergies Allergies/Adverse Reactions: milk Allergy (Verified 02/21/18 21:51) mustard Allergy (Verified 02/21/18 21:51) - Home Medications Home medications: home medication list seen and reviewed Home Medications: Multivitamins [Multivitamin (*)] 1 each PO DAILY 01/08/18 [Last Taken 01/26/18] lamoTRIgine [LamICTAL 100 MG (*)] 50 mg PO BID 01/08/18 [Last Taken 01/26/18 09: 00] Cholecalciferol Vit D3 [Vitamin D3 (*)] 1,000 units PO DAILY 01/20/18 [Last Taken 01/26/18] Promethazine HCl [Phenergan 25mg (*)] 25 mg PO Q6HRS PRN 02/22/18 [Last Taken Unknown] - NPO status NPO Status: no food or drink >8 hours NPO Since - Liquids (Date): 02/24/18 NPO Since - Liquids (Time): 00:00 NPO Since - Solids (Date): 02/24/18 NPO Since - Solids (Time): 00:00 - Anes Hx Anes Hx: no prior problems - Smoking Hx Smoking Status: Never smoked Marijuana use: No - Alcohol Use Alcohol Use: None - Family Anes Hx Family Anes Hx: none Family Hx Anesthesia Complications: none ANE Labs/Vital Signs - Labs Result Diagrams: 02/22/18 05:30 02/23/18 07:35 - Vital Signs Blood Pressure: 103/63 Heart Rate: 72 Respiratory Rate: 16 O2 Sat (%): 97 Height: 170.18 cm Weight: 42.184 kg ANE Physical Exam - Airway Neck exam: FROM Mallampati Score: Class 2 Mouth exam: normal dental/mouth exam - Pulmonary Pulmonary: no respiratory distress, clear to auscultation - Cardiovascular Cardiovascular: regular rate and rhythym, no murmur, rub, or gallop - ASA Status ASA Status: III ANE Anesthesia Plan Anesthesia Plan: general endotracheal anesthesia
[2018-02-24] MEDS ORDERED: PHENYLEPHRINE HCL 100 MCG/ML SYR ONE (09:14)
[2018-02-24] MEDS ORDERED: ceFAZolin 1 GM VIAL ONE ×2 (09:25)
[2018-02-24] MEDS ORDERED: ONDANSETRON 4 MG/2 ML VIAL ONE (09:45)
[2018-02-24] MEDS ORDERED: SUGAMMADEX SODIUM 200 MG/2 ML VIAL IVP ONE (09:47)
--- NOTE | 2018-02-24 09:49 | PDHPUP ---
History & Physical Update H&P update statement: This history and physical update is based on an assessment of the patient which was completed after admission or registration (within 24 hours), but prior to the surgery/procedure. Painful compression deformity T10 H&P update: H&P reviewed & patient examined, no change in patient's condition since H&P completed
--- NOTE | 2018-02-24 09:51 | PDRADPN ---
Radiology Procedure Note Date of Procedure: 02/24/18 Radiologist: Luke Herman Anesthesia: GET(General Endotracheal) Pre-op Diagnosis: Painful vertebral compression fracture Post-op Diagnosis: Painful vertebral compression fracture Indication: Painful vertebral compression fracture Procedure: T10 vertebroplasty Finding(s): Previous treatment of T5-T9 with persistent pain at T10. Successful unipedicular approach vertebroplasty. Inf/Abcess present in the surg proc area at time of surgery?: No
[2018-02-24] MEDS ORDERED: HYDROmorphONE/DILAUDID 2 MG/ML INJ IVP PRN (10:03)
[2018-02-24] MEDS ORDERED: MEPERIDINE 25 MG/0.5 ML AMP IVP PRN (10:03)
[2018-02-24] MEDS ORDERED: NALOXONE HCL 0.4 MG/ML INJ IVP PRN ×2 (10:03→10:15)
--- NOTE | 2018-02-24 10:03 | POSTANESTH ---
Post Anesthetic Evaluation Cardiovascular Status: Normal, Stable Respiratory Status: Normal, Stable Level of Consciousness/Mental Status: Can Participate in Eval, Moderately Sleepy Pain Control: Adequate, Prn Tx Ordered Nausea/Vomiting Control: Adequate, Prn Tx Ordered Complications Possibly Related to Anesthesia: None Noted
[2018-02-24] MEDS ORDERED: NS 1,000 ML IV ONE (10:15)
[2018-02-24] MEDS ORDERED: fentaNYL 100 MCG/2 ML INJ IVP PRN (10:15)
[2018-02-24] MEDS ORDERED: DEXAMETHASONE 10 MG/ML VIAL IVP ONE (10:15)
[2018-02-24] MEDS ORDERED: MIDAZOLAM 2 MG/2 ML VIAL IVP PRN (10:15)
[2018-02-24] MEDS ORDERED: fentaNYL 100 MCG/2 ML INJ ONE (10:15)
[2018-02-24] MEDS ORDERED: ceFAZolin 2 GM/DEXTROSE 100 ML IV ONE (10:15)
[2018-02-24] MEDS ORDERED: FLUMAZENIL 0.5 MG/5 ML MDV IVP PRN (10:15)
[2018-02-24] MEDS: fentaNYL 100 MCG/2 ML INJ IVP PRN ×2 (10:19→10:43)
[2018-02-24] MEDS ORDERED: BUPIVACAINE 0.5% 30 ML SDV ONE (10:32)
[2018-02-24] MEDS ORDERED: IOPAMIDOL (ISOVUE-300) 100 ML BTL ONE (10:32)
[2018-02-24] MEDS ORDERED: LIDOCAINE 1% 300 MG/30 ML SDV ONE (10:32)
[2018-02-24] MEDS: MULTIVITAMINS 1 EACH TAB PO SCH (11:47)
[2018-02-24] MEDS: lamoTRIgine 100 MG TAB PO SCH ×2 (11:47→21:17)
[2018-02-24] MEDS: busPIRone 5 MG TAB PO SCH ×3 (11:47→21:17)
[2018-02-24] MEDS: FAMOTIDINE 20 MG TAB PO SCH (11:47)
[2018-02-24] MEDS: CHOLECALCIFEROL VIT D3 1,000 UNITS TAB PO SCH (11:47)
[2018-02-24] MEDS: LIPASE 12,000/AMYLASE/PROTEASE (CREON) 1 CAP PO SCH ×3 (11:47→18:23)
[2018-02-24] MEDS: PANTOPRAZOLE SODIUM 40 MG TAB PO SCH (11:48)
[2018-02-24] MEDS: OCTREOTIDE 100 MCG/1 ML INJ SC SCH ×4 (11:48→21:18)
[2018-02-24] MEDS: LORazepam 2 MG/ML INJ IVP PRN (12:02)
[2018-02-24] MEDS: GLUTAMINE (GLUTASOLVE) 1 EACH PKT PO SCH ×4 (12:29→21:22)
[2018-02-24 15:10] LABS: HIV TYPE 1 AND 2 NEGATIVE (NEGATIVE)
--- NOTE | 2018-02-24 15:34 | HOSPPROG ---
Hospitalist Progress Note Assessment/Plan: 22 y/o female with a complicated gastrointestinal history of dysmotility/pseudo- obstruction s/p total colectomy with continent ileostomy placement, gastrectomy with Chandler-en-Y gastrojejunostomy, median arcuate ligament syndrome s/p release, kyphoplasty and numerous hospitalizations for dehydration and electrolyte disturbances presents with dehydration and continued high output from ostomy. History of compression fractures due to scoliosis and osteoporosis she has increasing pain in her back this admission that she felt was due to inability to absorb her narcotics. She underwent a vertebroplasty on 02/24 at T10 level. # high ostomy output, chronic issue for her to a point where she is getting IV fluids at home. She states that she has had a PICC line intermittently for the last 2 years with intermittent IV fluids. Review GI note. * Extensive serologic evaluation for causes per GI * Stool studies per GI * Trial of antidiarrheals and short-term octreotide * Restrict low-sodium fluids including sports drinks * Drink glucose-electrolyte solution 1-2 L per day, ([facility] Solution- can check with dietary or pharmacy regarding these solutions), or prepared fluids ( chicken broth 2 cups, with 2 cups after 2 tablespoons of sugar) * Strict output documentation to confirm ostomy output. * Left message with her surgeon regarding patient's admission * Patient asking about a porch rather than a PICC line for long-term IVF, I would defer this to her surgeon and primary care doctor * PPI . DC H2 reny given interaction with tizanidine # T5-T9 compression fractures, worsening pain unclear if this is due to her T10 compression fracture or decreased absorption of her current oxycodone. She claim she was on 20 mg every 6 hr however when I reviewed her outpatient records it looks like she is on 10 mg every 6 hr. Currently on IV Dilaudid long discussion with her regarding minimizing narcotic use * Will have pharmacy review her current dosage of Dilaudid and try to bring it down to equal her outpatient dose of oxycodone. Total 24 hour dilauded equivalent is 3mg/24 hour of IV Dilaudid to equal 40mg/24 hours of oxycodone. She is actually pretty close to this. * Kyphoplasty of T10 per IR today done * Minimize Ativan * Add tizanidine, this is on her home med list per her last PCP visit on February 19. Will discontinue dicyclomine and Pepcid given interaction * # anxiety/depression. Patient currently written for Ativan. Agree with decreasing from 1 mg to 0.5 mg every 6 hr as needed will continue to decrease this daily. I discussed this with the patient that narcotic and benzodiazepine use in conjunction is not recommended. Will decrease her frequency to q.8 hours tomorrow and continue to wean her off of these during this admission * Wean off Ativan * Continue BuSpar * Could consider SSRI, apparently she has been on these previously # suspected adrenal insufficiency with a low a.m. Cortisol during her recent admission. Unfortunately with long-term narcotic use most cortisol levels are low and this is not a good test. She does have a endocrine outpatient consult scheduled with Dr. Calderon. Could consider a Cortrosyn stim test this admission if she has an extended stay * Low a.m. Cortisol secondary to narcotic use * Will check a Cortrosyn stim test, has had dexamethasone which should not interfere with her test however if it is abnormal would not necessarily treat her but would refer to Endocrine # osteoporosis, given her GI issues she would likely benefit from infusions or injections rather than oral bisphosphonates. * Follow up with endocrine as scheduled # SMA syndrome status post surgical release with Dr. Yao # seizure disorder continue home medications # Severe protein calori malnutrition - Long standing issue for this patient Code - Full Ppx - Low risk, ambulate TID Dispo - Pending clinical course Subjective: Patient new to me and chart reviewed extensively. Spent more than 25 min in coordination of care chart review and [id number] with the patient more than 50% counseling. Continues to complain of abdominal pain and cramping Objective: Vital Signs Temp Pulse Resp BP Pulse Ox 36.6 C 109 H 16 107/73 99 02/24/18 11:43 02/24/18 13:59 02/24/18 13:59 02/24/18 13:59 02/24/18 13:59 Laboratory Results 02/24/18 12:30 02/23/18 07:35 02/23/18 02/24/18 02/25/18 05:59 05:59 05:59 Intake Total 2400 4450 800 Output Total 5500 3550 0 Balance -3100 900 800 PT 14.3 SEC (12.0-15.0) 12/04/18 05:20 INR 1.09 (0.83-1.16) 02/24/18 05:20 - Physical Exam Constitutional: chronically ill appearing, cachectic Eyes: PERRL Cardiovascular: regular rate and rhythym Respiratory: no respiratory distress, reduced air movement Gastrointestinal: tenderness, No distension Neurologic: AAOx3 Psychiatric: depressed ICD10 Worksheet Patient Problems: Problems Problem Status Onset Intractable vomiting Acute Dehydration Acute Abdominal pain Acute Volume depletion Acute Syncope Acute Lightheadedness Acute Diarrhea Acute Nausea Acute Compression fracture of body of thoracic vertebra Acute Abdominal abscess Acute Shortness of breath Acute Near syncope Acute Hypochloremia Acute
[2018-02-24 18:05] LABS: PLATELET COUNT 319 10^3/uL (150-400)
[2018-02-24] MEDS ORDERED: HYDROmorphONE/DILAUDID 1 MG/ML INJ IVP ONE (22:45)
[2018-02-25] MEDS: HYDROmorphONE/DILAUDID 1 MG/ML INJ IVP PRN ×5 (00:03→10:56)
[2018-02-25] MEDS: PROMETHAZINE HCL 25 MG/ML INJ IVP PRN ×4 (00:04→20:07)
[2018-02-25] MEDS: LORazepam 2 MG/ML INJ IVP PRN ×3 (05:49→18:38)
[2018-02-25] MEDS ORDERED: COSYNTROPIN 0.25 MG/2 ML SYRINGE IVP ONE (06:00)
[2018-02-25] MEDS: NS 1,000 ML IV SCH ×2 (06:02→17:01)
--- NOTE | 2018-02-25 07:38 | SOAPPROG ---
SOAP Progress Note Assessment/Plan: Assessment: Still reported high output yesterday per nursing notes. However patient reports that she had some distention and cramping and nothing out of her ostomy with catheterization. Feeling better today. She is s/p vertebroplasty by IR yesterday. Plan: 1. Continue PPI, Hs's, loperamide and Sandostatin 2. W/u for secretory diarrhea pending. 3. Recommend dietary consult if this has not been done 4. Please ask surgery to evaluate stoma 02/25/18 07:38 Subjective: CC: HOS dehydration. Had some cramps with no output from ostomy with catheterization last night. Started on Octreotide yesterday. Objective: Vital Signs Temp Pulse Resp BP Pulse Ox 36.4 C 72 18 117/90 H 98 02/25/18 04:00 02/25/18 04:00 02/25/18 04:00 02/25/18 04:00 02/25/18 04:00 Laboratory Results 02/24/18 16:50 02/23/18 07:35 02/24/18 02/25/18 02/26/18 05:59 05:59 05:59 Intake Total 4450 3131 Output Total 3550 3000 Balance 900 131 PT 14.3 SEC (12.0-15.0) 02/24/18 05:20 INR 1.09 (0.83-1.16) 02/24/18 05:20 Generic Name Dose Route Start Last Admin Trade Name Freq PRN Reason Stop Dose Admin Acetaminophen 650 mg 02/21/18 23:51 Tylenol PO 08/20/18 23:50 Q4HRS PRN Pain, Mild/Fever, Can Take PO Alteplase, Recombinant 2 mg 02/22/18 13:48 Cathflo Activase IVP 08/21/18 13:47 PRN PRN Per PICC line policy Lipase/Protease/Amylase 1 cap 02/22/18 18:00 02/24/18 18:23 Creon PO 08/21/18 17:59 1 cap TIDMEAL GABINO Administration Buspirone HCl 5 mg 02/22/18 16:00 02/24/18 21:17 Buspar PO 08/21/18 15:59 5 mg TID GABINO Administration Cholecalciferol 1,000 units 02/23/18 09:00 02/24/18 11:47 Vitamin D PO 08/22/18 08:59 1,000 units DAILY GABINO Administration Glutamine 1 each 02/22/18 16:00 02/24/18 21:22 Glutasolve Resource PO 08/21/18 15:59 1 each TID GABINO Administration Haloperidol Lactate 1 mg 02/22/18 22:46 Haldol Injection IVP 08/21/18 22:45 Q6HRS PRN Nausea Hydromorphone HCl 0.4 mg 02/22/18 14:04 02/25/18 05:46 Dilaudid IVP 03/04/18 00:34 0.4 mg Q2HRS PRN Administration Pain, Severe Unable to Take PO Sodium Chloride 1,000 mls @ 100 mls/hr 02/21/18 23:45 02/25/18 06:02 Ns IV 08/20/18 23:44 1,000 mls CONT GABINO Administration Lamotrigine 50 mg 02/22/18 21:00 02/24/18 21:17 Lamictal PO 08/21/18 20:59 50 mg BID GABINO Administration Loperamide HCl 2 mg 02/23/18 15:14 Imodium Oral Liquid PO 08/22/18 15:13 QID PRN Diarrhea/Loose Stools Lorazepam 0.5 mg 02/24/18 06:17 02/25/18 05:49 Ativan Injection IVP 08/21/18 00:54 0.5 mg Q6H PRN Administration Anxiety, nausea Multivitamins 1 each 02/23/18 09:00 02/24/18 11:47 Tab-A-Yesenia PO 08/22/18 08:59 1 each DAILY GABINO Administration Octreotide Acetate 100 mcg 02/24/18 09:00 02/24/18 21:18 Sandostatin SC 08/23/18 08:59 Not Given TID GABINO Ondansetron HCl 4 mg 02/21/18 23:51 Zofran IVP 08/20/18 23:50 Q4HRS PRN Nausea/Vomiting, Can't Take PO Ondansetron HCl 4 mg 02/21/18 23:51 Zofran Odt PO 08/20/18 23:50 Q4HRS PRN Nausea/Vomiting, Use 1st Pantoprazole Sodium 40 mg 02/23/18 15:45 02/24/18 11:48 Protonix PO 08/22/18 15:44 40 mg DAILY GABINO Administration Promethazine HCl 25 mg 02/22/18 14:04 02/25/18 07:27 Phenergan IVP 08/20/18 23:50 25 mg Q6HRS PRN Administration Nausea/Vomiting, Use 2nd Tizanidine HCl 4 mg 02/24/18 15:47 Zanaflex PO 08/23/18 15:59 TID PRN muscle spasm Discontinued Medications Generic Name Dose Route Start Last Admin Trade Name Freq PRN Reason Stop Dose Admin Bupivacaine HCl Confirm 02/24/18 10:32 Sensorcaine 0.5% Vial Administered 02/24/18 10:33 Dose 30 ml .ROUTE .STK-MED ONE Cefazolin Sodium Confirm 02/24/18 09:25 Ancef Administered 02/24/18 09:26 Dose 1 gm .ROUTE .STK-MED ONE Cefazolin Sodium Confirm 02/24/18 09:25 Ancef Administered 02/24/18 09:26 Dose 1 gm .ROUTE .STK-MED ONE Cosyntropin 0.25 mg 02/25/18 06:00 02/25/18 06:02 Cortrosyn Syringe IVP 02/25/18 06:01 0.25 mg DAILY@0600 ONE Administration Dexamethasone 10 mg 02/24/18 10:15 02/24/18 12:29 Decadron Injection IVP 02/24/18 10:16 Not Given ONCALL ONE Dicyclomine HCl 10 mg 02/22/18 13:48 Bentyl PO 08/21/18 13:47 QID PRN abdominal pain Famotidine 20 mg 02/23/18 21:00 02/24/18 11:47 Pepcid PO 08/22/18 20:59 20 mg BID GABINO Administration Fentanyl Confirm 02/24/18 08:41 Sublimaze Administered 02/24/18 08:42 Dose 250 mcg .ROUTE .STK-MED ONE Fentanyl 25 - 100 mcg 02/24/18 10:03 02/24/18 10:43 Sublimaze IVP 02/24/18 11:03 50 mcg Q5M PRN Administration PACU, IMMEDIATE Pain control Fentanyl Confirm 02/24/18 10:15 Sublimaze Administered 02/24/18 10:16 Dose 100 mcg .ROUTE .STK-MED ONE Fentanyl 0 mcg 02/24/18 10:15 Sublimaze IVP 02/24/18 11:16 ONCALL PRN Per provider during procedure Flumazenil 0 mg 02/24/18 10:15 Romazicon IVP 02/24/18 11:16 ONCALL PRN Per provider during procedure Hydromorphone HCl 0.5 mg 02/21/18 22:41 02/21/18 22:50 Dilaudid IVP 02/21/18 22:42 0.5 mg EDNOW ONE Administration Hydromorphone HCl 0.4 mg 02/22/18 00:35 02/22/18 10:35 Dilaudid IVP 03/04/18 00:34 0.4 mg Q4HRS PRN Administration Pain, Severe Unable to Take PO Hydromorphone HCl 0.1 - 0.4 mg 02/24/18 10:03 Dilaudid IVP 02/24/18 11:03 Q10M PRN PACU, PAIN Hydromorphone HCl 0.4 mg 02/24/18 22:45 02/24/18 22:45 Dilaudid IVP 02/24/18 22:46 0.4 mg ONCE ONE Administration Sodium Chloride 1,000 mls @ 0 mls/hr 02/21/18 22:41 02/21/18 22:49 Ns IV 02/21/18 22:42 1,000 mls EDNOW ONE Administration Protocol Wide Open Cefazolin Sodium/Dextrose 100 mls @ 200 mls/hr 02/24/18 10:15 02/24/18 11:32 Ancef IV 02/24/18 10:44 Not Given ONCALL ONE Protocol Sodium Chloride 1,000 mls @ 100 mls/hr 02/24/18 10:15 02/24/18 11:36 Ns IV 02/24/18 20:14 1,000 mls ONCALL ONE Administration Iopamidol Confirm 02/24/18 10:32 Isovue-300 Administered 02/24/18 10:33 Dose 100 ml .ROUTE .STK-MED ONE Lidocaine HCl Confirm 02/24/18 08:41 Xylocaine-Mpf 2% Vial Administered 02/24/18 08:42 Dose 5 ml .ROUTE .STK-MED ONE Lidocaine HCl Confirm 02/24/18 10:32 Lidocaine Hcl 1% Administered 02/24/18 10:33 Dose 300 mg .ROUTE .STK-MED ONE Lorazepam 1 mg 02/22/18 00:55 02/23/18 21:15 Ativan Injection IVP 08/21/18 00:54 1 mg Q4HRS PRN Administration Anxiety, nausea Meperidine HCl 12.5 - 25 mg 02/24/18 10:03 Demerol IVP 02/24/18 11:03 Q10M PRN PACU, shivering/rigors Midazolam HCl Confirm 02/24/18 08:43 Versed Administered 02/24/18 08:44 Dose 2 mg .ROUTE .STK-MED ONE Midazolam HCl 0 mg 02/24/18 10:15 Versed IVP 02/24/18 11:16 ONCALL PRN Per provider during procedure Naloxone HCl 0.1 mg 02/24/18 10:03 Narcan IVP 02/24/18 11:03 Q2M PRN PACU Resp Rate <10/min Naloxone HCl 0 mg 02/24/18 10:15 Narcan IVP 02/24/18 11:16 ONCALL PRN Per provider during procedure Ondansetron HCl Confirm 02/24/18 09:45 Zofran Administered 02/24/18 09:46 Dose 4 mg .ROUTE .STK-MED ONE Phenylephrine HCl Confirm 02/24/18 09:14 Neosynephrine Administered 02/24/18 09:15 Dose 1,000 mcg .ROUTE .STK-MED ONE Promethazine HCl 12.5 mg 02/21/18 22:41 02/21/18 22:49 Phenergan IVP 02/21/18 22:42 12.5 mg ONCE ONE Administration Promethazine HCl 6.25 - 12.5 mg 02/21/18 23:51 02/22/18 05:43 Phenergan IVP 08/20/18 23:50 12.5 mg Q6HRS PRN Administration Nausea/Vomiting, Use 2nd Propofol Confirm 02/24/18 08:41 Diprivan Administered 02/24/18 08:42 Dose 200 mg .ROUTE .STK-MED ONE Rifaximin 550 mg 02/22/18 21:00 02/22/18 22:15 Xifaxan PO 02/22/18 23:59 550 mg BID GABINO Administration Protocol Rocuronium [place] Confirm 02/24/18 08:41 Zemuron Administered 02/24/18 08:42 Dose 50 mg .ROUTE .STK-MED ONE Sugammadex Sodium Confirm 02/24/18 09:47 Bridion Administered 02/24/18 09:48 Dose 200 mg IVP .STK-MED ONE Physical Exam - Physical Exam General Appearance: alert, no apparent distress Respiratory: lungs clear, normal breath sounds Cardiac/Chest: regular rate, rhythm Abdomen: normal bowel sounds, non-tender, soft Skin: normal color, warm/dry Neuro/Psych: normal mood/affect, oriented x 3 ICD10 Worksheet Patient Problems: Problems Problem Status Onset Compression fracture of body of thoracic vertebra Acute Diarrhea Acute Lightheadedness Acute Nausea Acute Abdominal abscess Acute Abdominal pain Acute Dehydration Acute Hypochloremia Acute Intractable vomiting Acute Near syncope Acute Shortness of breath Acute Syncope Acute Volume depletion Acute
[2018-02-25] MEDS: LIPASE 12,000/AMYLASE/PROTEASE (CREON) 1 CAP PO SCH ×3 (08:20→17:43)
[2018-02-25] MEDS ORDERED: oxyCODONE ORAL SOLUTION 10 MG/0.5 ML UDSYR PO PRN ×2 (10:36→17:06)
[2018-02-25] MEDS: OCTREOTIDE 100 MCG/1 ML INJ SC SCH ×3 (11:01→23:20)
[2018-02-25] MEDS: busPIRone 5 MG TAB PO SCH ×3 (11:15→23:19)
[2018-02-25] MEDS: CHOLECALCIFEROL VIT D3 1,000 UNITS TAB PO SCH (11:15)
[2018-02-25] MEDS: GLUTAMINE (GLUTASOLVE) 1 EACH PKT PO SCH ×3 (11:16→23:20)
[2018-02-25] MEDS: PANTOPRAZOLE SODIUM 40 MG TAB PO SCH (11:16)
[2018-02-25] MEDS: lamoTRIgine 100 MG TAB PO SCH ×2 (11:16→20:01)
[2018-02-25] MEDS: MULTIVITAMINS 1 EACH TAB PO SCH (11:16)
--- NOTE | 2018-02-25 11:58 | GCON ---
CHIEF COMPLAINT: High ostomy output. HISTORY OF PRESENT ILLNESS: 22-year-old female, well known to our practice, who presented to the emergency department on February 21 with complaints of high ostomy output and dehydration. She was recently hospitalized with discharge on February 10 for similar issues. Since her last discharge, she added home medications to include pancreatic enzymes, Questran, glutamine, rifaximin, and dexamethasone, which provided moderate relief of high ostomy output and nausea. She states she was also doing 1 L IV fluids daily at home. She complains of increased ostomy output for the past 1 week with watery orange drainage. Patient states her oral medications were passing through undigested when emptying her continent ileostomy. Denies nausea, vomiting, fever, or chills. States that she has minimal right upper quadrant pain associated with her high ileostomy output. She underwent T10 vertebroplasty yesterday with moderate pain relief thus far. PAST MEDICAL HISTORY: Significant for intestinal dysmotility, median arcuate ligament syndrome, gastroparesis, dehydration, vertebral compression fracture, seizure disorder, panic disorder, and SMA syndrome. HOME MEDICATIONS: Rifaximin, lamotrigine, promethazine, 1 L normal saline IV, multivitamins, Creon, lorazepam, glutamine, BuSpar, dicyclomine, vitamin D3. FAMILY HISTORY: Noncontributory. SOCIAL HISTORY: Nonsmoker. No alcohol. Occupation: Student. Lives with her fiancee. PAST SURGICAL HISTORY: Near-total gastrectomy with Chandler-en-Y gastrojejunostomy , median arcuate ligament release, superior mesenteric artery syndrome release, and total colectomy with continent ileostomy. ALLERGIES: Milk and mustard. No known drug allergies. REVIEW OF SYSTEMS: A 12-point review of systems was reviewed and negative, except for stated in the HPI. PHYSICAL EXAM: VITAL SIGNS: Blood pressure 117/90, pulse 72, respiratory rate 18, O2 saturation 98% on room air. Temperature 36.4 degrees Celsius. GENERAL: Alert and oriented x3. Pale complexion. Appears comfortable in bed. HEENT: Anicteric. Moist mucous membranes. SKIN: Normal. HEART: Regular rate and rhythm without murmurs. RESPIRATORY: Clear to auscultation bilaterally. Normal respiratory effort. ABDOMEN: Soft, nondistended, nontender. No rebound or guarding. Well-healed midline laparotomy incision with prior gastrocutaneous fistula site. Ileostomy stoma pink. No surrounding erythema. Minimal tenderness. NEUROLOGIC: Nonfocal. EXTREMITIES: No edema bilaterally. LABORATORY/IMAGING: Reviewed. ASSESSMENT: 1. High ileostomy output. 2. History of congenital intestinal dysmotility with median arcuate ligament syndrome, status post multiple bowel resections. PLAN: Agree with current medical management and recommendations provided as per Hospital Medicine and GI. Recommend continuing with current medications and IV fluids. Agree with dietary consultation. Discourage further imaging workup at this time, awaiting results of GI panel and other immunology labs. Again discussed anticipating waxing and waning of GI dysmotility episodes. We will continue to follow. Patient seen and evaluated with Dr. Yao. /[id number]/BESSYL ALVA
[2018-02-25] MEDS: CODEINE SULF 30 MG TAB PO PRN ×2 (12:30→18:10)
--- NOTE | 2018-02-25 13:57 | HOSPPROG ---
Hospitalist Progress Note Assessment/Plan: #High ostomy output: chronic issue, but concern she is manipulating ostomy here , -Extensive serologic evaluation, stool studies per GI. -Trial of antidiarrheals and short-term octreotide, codeine -Restrict low-sodium fluids including sports drinks -Drink glucose-electrolyte solution 1-2 L per day, ([place] Solution- can check with dietary or pharmacy regarding these solutions), or prepared fluids ( chicken broth 2 cups, with 2 cups after 2 tablespoons of sugar) -RN to observe ostomy output for accurate documentation -Advised pt that port will not be placed here in hosp. Defer to Dr. Yao and PCP -Dr. Yao to evaluate today #Chronic pain and opioid dependency: -conversation with she and mother today explaining risks of chronic opioids. Stop IV Dilaudid today and resume home Oxycodone, 10g q6hr # T5-T9 compression fractures: s/p T10 kyphoplasty 02/24. Tizanidine added # Anxiety/depression: -wean down Ativan. Cont Buspar. #Suspected adrenal insuffiency: likely from chronic opioids -appropriate response to cortisol stim test -FU with Endo, Dr. Calderon #Osteoporosis: given her GI issues she would likely benefit from infusions or injections rather than oral bisphosphonates. # SMA syndrome status post surgical release with Dr. Yao # Sseizure disorder continue home medications #Severe protein calori malnutrition - Long standing issue. Dietary consulted #Diet: regular #DVT ppx: ambulating #Disp:cont inpatient admission for labs studies, dietary consult. Mother at bedside and questions answered Subjective: "No ostomy output after octreotide". Pain in back at kypho site Objective: Vital Signs Temp Pulse Resp BP Pulse Ox 36.4 C 72 18 117/90 H 98 02/25/18 04:00 02/25/18 04:00 02/25/18 04:00 02/25/18 04:00 02/25/18 04:00 Laboratory Results 02/24/18 16:50 02/23/18 07:35 02/24/18 02/25/18 02/26/18 05:59 05:59 05:59 Intake Total 4450 3131 Output Total 3550 3000 Balance 900 131 PT 14.3 SEC (12.0-15.0) 02/24/18 05:20 INR 1.09 (0.83-1.16) 02/24/18 05:20 - Time Spent With Patient Time Spent with Patient: greater than 35 minutes Time Spent with Patient: Greater than 35 minutes spent on this patients care, greater than 50% of time spent counseling, educating, and coordinating care regarding the above mentioned plan. - Physical Exam Constitutional: cachectic, other (pale) Ears, Nose, Mouth, Throat: moist mucous membranes Cardiovascular: regular rate and rhythym Respiratory: no respiratory distress Gastrointestinal: other (quiet BS throughout. No TTP. Ileostomy) Genitourinary: No owen in urethra Skin: warm Neurologic: CN II-XII Intact Psychiatric: flat affect ICD10 Worksheet Patient Problems: Problems Problem Status Onset Compression fracture of body of thoracic vertebra Acute Diarrhea Acute Lightheadedness Acute Nausea Acute Abdominal abscess Acute Abdominal pain Acute Dehydration Acute Hypochloremia Acute Intractable vomiting Acute Near syncope Acute Shortness of breath Acute Syncope Acute Volume depletion Acute
--- NOTE | 2018-02-25 15:19 | ASMTCMCOM ---
CM Note CM Note Notes: Patient with significant history of GI surgeries and ostomy presented with new compression fracture. She is concerned about her medication absorption . Medications adjusted per hospital medicine with goal of resumption of oral regiment, she is otherwise up independently in her room and reports some pain at kyphoplasty site. Patient visited with [facility] today and is looking for medical support for a port placement for her frequent hydration needs. Surgery to see at some point. CM to follow for needs, Plan: [facility] when medically stable for discharge. Date Signed: 02/25/2018 03:18 PM Electronically Signed By:Yasmine Ferguson RN
--- NOTE | 2018-02-25 16:01 | PDPCPN ---
Palliative Care Progress Note Assessment/Plan: Assessment: [facility] [address] [place] [id number] (O) [phone](F) PALLIATIVE CARE NOTE Name: Andree Fuller Age: 22 Visit Type: Subsequent Palliative Visit Location: [facility] Date: 02/25/2018 Level of Care: Transitional DIAGNOSES: 1. Celiac Artery Compression Syndrome 2. Abdominal pain 3. Intestinal Dysmotility CC: Follow-up Palliative care visit HPI: Patient is a 22 year-old female who was referred to [facility] Palliative care from [facility]. Patient has an extensive history of abdominal problems with intestinal dysmotility/pseudo obstruction. She is status post total colectomy with continent ileostomy. She has had a gastrectomy with Chandler-en-Y gastrojejunectomy, median arcuate ligament syndrome status post release. She has had multiple recent hospitalizations for dehydration and electrolyte disturbances. She has been admitted again for abdominal pain as well as dehydration. She does state that she has been administering 1 L of IV fluid every day at home. She underwent kyphoplasty yesterday for worsening compression fractures. She continues to complain of significant amounts of stool. PMH: Intestinal dysmotility, gastroparesis, vertebral compression fracture and seizure disorder. Surgeries include SMA syndrome release and placement and release of G and J tubes, total colectomy in July. Depression and anxiety- history of panic attacks, difficulty coping with chronic disease. Allergies: Mustard and Milk. Cannot take tramadol because lowers seizure threshold. Also reports she cannot take Tylenol. 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 Lives with her fiamanda and 2 other roommates. Advance Directives: Full COR with Full treatment. Temporary tube feedings. MDPOA: [place] Quinn- fianc Patient Goals of Care: 1. Pain control 2. Stay out of the hospital ACTIVE SYMPTOMS/ASSESSMENTS/RECOMMENDATIONS 1. Nausea- Patient reports frequent episodes of nausea. She has tried Zofran , Benadryl, Compazine and many other anti-nausea medications. She reports Zofran "makes her intestine stop working" and Compazine "makes me feel like I am jumping out of my skin." Triggers include anything with fat, which give her the dry heaves. She states she even gets nauseous with a low fat diet. Last Hida scan was normal per medical records. She states Phenergan is the only medication that works and "calms everything down." Andree reports she is now taking Phenergan 25 mg TID which is allowing her to eat. She states while hospitalized she underwent testing and it was found that she is not absorbing fat, due to her ileostomy output containing fat. She was started on Creon pancreatic enzymes, which she reports are helping.She is inquiring today about possible IV antiemetics at home. We discussed that this would be unlikely. 2. Pain- Andree reports chronic pain, mostly to her back and abdomen. Andree went to a pain management PERSONAL ATTENDANT in [facility]. Per PCP's office she has been told she has to go to see pain specialty PERSONAL ATTENDANT if she wants pain medication. Pain PERSONAL ATTENDANT is considering trying Botox injections to help with pain control. PCP office will no longer prescribe her pain medication. Per PCP office patient has a history of not complying with her pain contract. She has also refused alternative care therapies such as energy healing, massage and acupuncture. She refused to follow up on these other suggestions. Dr. Hill has also instructed patient that she needs to see a psychotherapist in order for PCP to continue to treat her. Dr. Hill is also trying to get patient to [facility]. We did discuss sublingual morphine today and will recommend this for pain management as she believes that she has low absorption of her oxycodone and this would alleviate that potential issue 3. Dehydration- continues to receive IV fluids at this time. 4. Depression/anxiety- Per [facility] records patient has a history of panic attacks and difficulty coping with chronic disease. While hospitalized [facility] staff attempted an integrative care consult to help with coping strategies and patient would not engage. Records indicate patient has tried several SSRI's, Mirtazapine and TCA antidepressants with no effect. [facility] suggested Vistaril and Buspar in last discharge note- neither of which patient reports taking. [facility] suggested Psych consult. PCP has instructed patient to go to psychotherapy in order for her to continue to receive treatment from PCP. 5. Prognosis: Years. 6. Hospice Eligibility: No: Does not meet criteria 7. Recommended Hospice Admitting Diagnosis: N/A MODIFIED [place] SYMPTOM ASSESSMENT SCALE 0-none; 1-3 mild; 4-6 moderate; 7-10 severe Unable to Respond: No Delirium: 0-none Depression: 4-6 moderate Anxiety: 4-6 moderate Tiredness (fatigue): 0- none Drowsiness (sleepiness): 0-none Pain: 7-10 severe Nausea: 4-6 moderate Anorexia: 1-3 mild Shortness of Breath: 0-none Secretions: 0-none Constipation: 0-none Symptom and side effect management: acceptable to patient and family. RISK FACTORS FOR ADMISSION AND READMISSION TO THE HOSPITAL: o CAREGIVER ANXIETY- yes o HISTORY OF NONCOMPLIANCE WITH MEDICATION- YES o MENTAL HEALTH DISORDER (i.e. ANXIETY, DEPRESSION)- YES o >2 HOSPITALIZATIONS IN PAST 12 MONTHS- YES o DISEASE EDUCATION DEFICIT- YES OBJECTIVE FINDING Palliative Performance Score: 80 FAST: N/A NYHA: N/A Wt.: 94 lbs. 02/19/18 , 95 lbs. in December MAC: 20 cm, was 19.5 cm last visit. Vitals: Neuro: A&O to person, place, time and event; Pleasant and cooperative. No neuro deficits. HEENT: Normocephalic; atraumatic. Mucous membranes pink, moist. RESP: Regular, deep, symmetrical. No cough or wheezing. Breath sounds CTA. CV: S1/S2, no murmur, gallop or rub. HR regular. No LE edema. Radial and pedal pulses 2+ bilaterally. Capillary refill <3 seconds. PICC line catheter to right upper arm. GI: Bowel sounds present times 4. Abdomen soft, flat, slightly tender to palpation. Patient has continent ostomy with small 4x4 dressing covering opening to RLQ. She reports she access the site using a catheter to drain the "pouch." MSK: marked muscle wasting . Ambulatory without assistive devices. No ataxia. SKIN: Dry, intact. Skin turgor non-tenting. LAB Data: N/A Medications: Advance Care Planning Family Support - MDPOAs is Will Ball. PALLIATIVE SUMMARY: Ms. Fuller is a 22-year-old female with a history of multiple gastrointestinal issues. She has been admitted again to the hospital for abdominal pain and dehydration. She underwent kyphoplasty yesterday for worsening compression fractures. We have recommended liquid morphine for sublingual administration as she believes that she has altered absorption of other medications. This would alleviate that potential problem. I will continue to follow this patient for support, symptom management, and end- of-life discussions. PLAN: PERSONAL ATTENDANT: Follow up March 30, 2018 at 1300. Palliative Supportive Services: CN and SW support. Thank you for the opportunity to participate in the care of this patient. TIME SPENT: [id number] , 50 minutes >50% of the time spent counseling, educating and coordinating the above topics. Sunday Garcia BANNER Plan: 02/25/18 16:01 Objective: Vital Signs Temp Pulse Resp BP Pulse Ox 36.9 C 114 H 18 100/65 100 02/25/18 12:00 02/25/18 12:00 02/25/18 12:00 02/25/18 12:00 02/25/18 12:00 Laboratory Results 02/24/18 16:50 02/23/18 07:35 02/24/18 02/25/18 02/26/18 05:59 05:59 05:59 Intake Total 4450 3131 Output Total 3550 3000 1400 Balance 900 131 -1400 PT 14.3 SEC (12.0-15.0) 02/24/18 05:20 INR 1.09 (0.83-1.16) 02/24/18 05:20 ICD10 Worksheet Patient Problems: Problems Problem Status Onset Compression fracture of body of thoracic vertebra Acute Diarrhea Acute Lightheadedness Acute Nausea Acute Abdominal abscess Acute Abdominal pain Acute Dehydration Acute Hypochloremia Acute Intractable vomiting Acute Near syncope Acute Shortness of breath Acute Syncope Acute Volume depletion Acute
--- NOTE | 2018-02-25 16:49 | SOAPPROG ---
SOAP Progress Note Assessment/Plan: Assessment:chart reviewed. reccs as per PA consult. care plan reviewed with hospitalist service. will continue to monitor output with current anti- diarrheal management. may need to consider tunneled line - however, will await above trend prior. Plan: 02/25/18 16:41 Objective: Vital Signs Temp Pulse Resp BP Pulse Ox 36.9 C 114 H 18 100/65 100 02/25/18 12:00 02/25/18 12:00 02/25/18 12:00 02/25/18 12:00 02/25/18 12:00 Laboratory Results 02/24/18 16:50 02/23/18 07:35 02/24/18 02/25/18 02/26/18 05:59 05:59 05:59 Intake Total 4450 3131 Output Total 3550 3000 1400 Balance 900 131 -1400 PT 14.3 SEC (12.0-15.0) 02/24/18 05:20 INR 1.09 (0.83-1.16) 02/24/18 05:20 ICD10 Worksheet Patient Problems: Problems Problem Status Onset Compression fracture of body of thoracic vertebra Acute Diarrhea Acute Lightheadedness Acute Nausea Acute Abdominal abscess Acute Abdominal pain Acute Dehydration Acute Hypochloremia Acute Intractable vomiting Acute Near syncope Acute Shortness of breath Acute Syncope Acute Volume depletion Acute
[2018-02-25] MEDS: oxyCODONE ORAL SOLUTION 10 MG/0.5 ML UDSYR PO PRN ×2 (19:39→23:43)
[2018-02-26] MEDS: LORazepam 2 MG/ML INJ IVP PRN ×3 (00:36→19:37)
[2018-02-26] MEDS: PROMETHAZINE HCL 25 MG/ML INJ IVP PRN ×4 (02:11→22:38)
[2018-02-26] MEDS: CODEINE SULF 30 MG TAB PO PRN ×3 (02:31→19:56)
[2018-02-26] MEDS: oxyCODONE ORAL SOLUTION 10 MG/0.5 ML UDSYR PO PRN ×4 (04:37→22:45)
--- NOTE | 2018-02-26 09:53 | SOAPPROG ---
SOAP Progress Note Assessment/Plan: Assessment: Had a bad day due to back pain. Reports that she still has alot of otsomy output. Nursing reports 2000 cc yesterday (this is down). Plan: 1. 24 hour urine for 5HIAA pending. 1. HIV negative 2.Normal Immunoglobulins 3.VIP and Gastrin pending 4.Continue on octreotide sq for total of 5 days. 02/26/18 10:44 Subjective: CC: Dehydration, back pain and HOS Had a lot of back pain. Difficulty laying down. Reports she is still having a lot of ostomy output. Surgery saw patient yesterday. Objective: Vital Signs Temp Pulse Resp BP Pulse Ox 36.7 C 83 16 87/57 L 96 02/26/18 07:45 02/26/18 07:45 02/26/18 07:45 02/26/18 07:45 02/26/18 07:45 Laboratory Results 02/24/18 16:50 02/26/18 04:40 02/25/18 02/26/18 02/27/18 05:59 05:59 05:59 Intake Total 3131 900 Output Total 3000 3100 Balance 131 -2200 PT 14.3 SEC (12.0-15.0) 02/24/18 05:20 INR 1.09 (0.83-1.16) 02/24/18 05:20 Generic Name Dose Route Start Last Admin Trade Name Freq PRN Reason Stop Dose Admin Acetaminophen 650 mg 02/21/18 23:51 Tylenol PO 08/20/18 23:50 Q4HRS PRN Pain, Mild/Fever, Can Take PO Alteplase, Recombinant 2 mg 02/22/18 13:48 Cathflo Activase IVP 08/21/18 13:47 PRN PRN Per PICC line policy Lipase/Protease/Amylase 1 cap 02/22/18 18:00 02/25/18 17:43 Creon PO 08/21/18 17:59 1 cap TIDMEAL GABINO Administration Buspirone HCl 5 mg 02/22/18 16:00 02/25/18 23:19 Buspar PO 08/21/18 15:59 5 mg TID GABINO Administration Cholecalciferol 1,000 units 02/23/18 09:00 02/25/18 11:15 Vitamin D PO 08/22/18 08:59 1,000 units DAILY GABINO Administration Codeine Sulfate 30 mg 02/25/18 10:37 02/26/18 02:31 Codeine PO 03/07/18 10:36 30 mg Q6H PRN Administration Pain, Moderate Able to Take PO Glutamine 1 each 02/22/18 16:00 02/25/18 23:20 Glutasolve Resource PO 08/21/18 15:59 Not Given TID GABINO Haloperidol Lactate 1 mg 02/22/18 22:46 Haldol Injection IVP 08/21/18 22:45 Q6HRS PRN Nausea Sodium Chloride 1,000 mls @ 100 mls/hr 02/21/18 23:45 02/25/18 17:01 Ns IV 08/20/18 23:44 1,000 mls CONT GABINO Administration Lamotrigine 50 mg 02/22/18 21:00 02/25/18 20:01 Lamictal PO 08/21/18 20:59 50 mg BID GABINO Administration Loperamide HCl 2 mg 02/23/18 15:14 Imodium Oral Liquid PO 08/22/18 15:13 QID PRN Diarrhea/Loose Stools Lorazepam 0.5 mg 02/24/18 06:17 02/26/18 00:36 Ativan Injection IVP 08/21/18 00:54 0.5 mg Q6H PRN Administration Anxiety, nausea Multivitamins 1 each 02/23/18 09:00 02/25/18 11:16 Tab-A-Yesenia PO 08/22/18 08:59 1 each DAILY [facility] Administration Octreotide Acetate 100 mcg 02/24/18 09:00 02/25/18 23:20 Sandostatin SC 08/23/18 08:59 Not Given TID [facility] Ondansetron HCl 4 mg 02/21/18 23:51 Zofran IVP 08/20/18 23:50 Q4HRS PRN Nausea/Vomiting, Can't Take PO Ondansetron HCl 4 mg 02/21/18 23:51 Zofran Odt PO 08/20/18 23:50 Q4HRS PRN Nausea/Vomiting, Use 1st Oxycodone HCl 15 mg 02/25/18 19:31 02/26/18 04:37 Roxicodone Intensol PO 03/07/18 17:05 15 mg Q4 PRN Administration Pain, Severe Pantoprazole Sodium 40 mg 02/23/18 15:45 02/25/18 11:16 Protonix PO 08/22/18 15:44 40 mg DAILY GABINO Administration Promethazine HCl 25 mg 02/22/18 14:04 02/26/18 02:11 Phenergan IVP 08/20/18 23:50 25 mg Q6HRS PRN Administration Nausea/Vomiting, Use 2nd Tizanidine HCl 4 mg 02/24/18 15:47 02/25/18 23:18 Zanaflex PO 08/23/18 15:59 4 mg TID PRN Administration muscle spasm Discontinued Medications Generic Name Dose Route Start Last Admin Trade Name Freq PRN Reason Stop Dose Admin Bupivacaine HCl Confirm 02/24/18 10:32 Sensorcaine 0.5% Vial Administered 02/24/18 10:33 Dose 30 ml .ROUTE .STK-MED ONE Cefazolin Sodium Confirm 02/24/18 09:25 Ancef Administered 02/24/18 09:26 Dose 1 gm .ROUTE .STK-MED ONE Cefazolin Sodium Confirm 02/24/18 09:25 Ancef Administered 02/24/18 09:26 Dose 1 gm .ROUTE .STK-MED ONE Cosyntropin 0.25 mg 02/25/18 06:00 02/25/18 06:02 Cortrosyn Syringe IVP 02/25/18 06:01 0.25 mg DAILY@0600 ONE Administration Dexamethasone 10 mg 02/24/18 10:15 02/24/18 12:29 Decadron Injection IVP 02/24/18 10:16 Not Given ONCALL ONE Dicyclomine HCl 10 mg 02/22/18 13:48 Bentyl PO 08/21/18 13:47 QID PRN abdominal pain Famotidine 20 mg 02/23/18 21:00 02/24/18 11:47 Pepcid PO 08/22/18 20:59 20 mg BID GABINO Administration Fentanyl Confirm 02/24/18 08:41 Sublimaze Administered 02/24/18 08:42 Dose 250 mcg .ROUTE .STK-MED ONE Fentanyl 25 - 100 mcg 02/24/18 10:03 02/24/18 10:43 Sublimaze IVP 02/24/18 11:03 50 mcg Q5M PRN Administration PACU, IMMEDIATE Pain control Fentanyl Confirm 02/24/18 10:15 Sublimaze Administered 02/24/18 10:16 Dose 100 mcg .ROUTE .STK-MED ONE Fentanyl 0 mcg 02/24/18 10:15 Sublimaze IVP 02/24/18 11:16 ONCALL PRN Per provider during procedure Flumazenil 0 mg 02/24/18 10:15 Romazicon IVP 02/24/18 11:16 ONCALL PRN Per provider during procedure Hydromorphone HCl 0.5 mg 02/21/18 22:41 02/21/18 22:50 Dilaudid IVP 02/21/18 22:42 0.5 mg EDNOW ONE Administration Hydromorphone HCl 0.4 mg 02/22/18 00:35 02/22/18 10:35 Dilaudid IVP 03/04/18 00:34 0.4 mg Q4HRS PRN Administration Pain, Severe Unable to Take PO Hydromorphone HCl 0.4 mg 02/22/18 14:04 02/25/18 10:56 Dilaudid IVP 03/04/18 00:34 0.4 mg Q2HRS PRN Administration Pain, Severe Unable to Take PO Hydromorphone HCl 0.1 - 0.4 mg 02/24/18 10:03 Dilaudid IVP 02/24/18 11:03 Q10M PRN PACU, PAIN Hydromorphone HCl 0.4 mg 02/24/18 22:45 02/24/18 22:45 Dilaudid IVP 02/24/18 22:46 0.4 mg ONCE ONE Administration Sodium Chloride 1,000 mls @ 0 mls/hr 02/21/18 22:41 02/21/18 22:49 Ns IV 02/21/18 22:42 1,000 mls EDNOW ONE Administration Protocol Wide Open Cefazolin Sodium/Dextrose 100 mls @ 200 mls/hr 02/24/18 10:15 02/24/18 11:32 Ancef IV 02/24/18 10:44 Not Given ONCALL ONE Protocol Sodium Chloride 1,000 mls @ 100 mls/hr 02/24/18 10:15 02/24/18 11:36 Ns IV 02/24/18 20:14 1,000 mls ONCALL ONE Administration Iopamidol Confirm 02/24/18 10:32 Isovue-300 Administered 02/24/18 10:33 Dose 100 ml .ROUTE .STK-MED ONE Lidocaine HCl Confirm 02/24/18 08:41 Xylocaine-Mpf 2% Vial Administered 02/24/18 08:42 Dose 5 ml .ROUTE .STK-MED ONE Lidocaine HCl Confirm 02/24/18 10:32 Lidocaine Hcl 1% Administered 02/24/18 10:33 Dose 300 mg .ROUTE .STK-MED ONE Lorazepam 1 mg 02/22/18 00:55 02/23/18 21:15 Ativan Injection IVP 08/21/18 00:54 1 mg Q4HRS PRN Administration Anxiety, nausea Meperidine HCl 12.5 - 25 mg 02/24/18 10:03 Demerol IVP 02/24/18 11:03 Q10M PRN PACU, shivering/rigors Midazolam HCl Confirm 02/24/18 08:43 Versed Administered 02/24/18 08:44 Dose 2 mg .ROUTE .STK-MED ONE Midazolam HCl 0 mg 02/24/18 10:15 Versed IVP 02/24/18 11:16 ONCALL PRN Per provider during procedure Naloxone HCl 0.1 mg 02/24/18 10:03 Narcan IVP 02/24/18 11:03 Q2M PRN PACU Resp Rate <10/min Naloxone HCl 0 mg 02/24/18 10:15 Narcan IVP 02/24/18 11:16 ONCALL PRN Per provider during procedure Ondansetron HCl Confirm 02/24/18 09:45 Zofran Administered 02/24/18 09:46 Dose 4 mg .ROUTE .STK-MED ONE Oxycodone HCl 10 mg 02/25/18 10:36 02/25/18 15:39 Roxicodone Intensol PO 03/07/18 10:35 10 mg Q6 PRN Administration Pain, Severe Oxycodone HCl 15 mg 02/25/18 17:06 Roxicodone Intensol PO 03/07/18 10:35 Q6 PRN Pain, Severe Phenylephrine HCl Confirm 02/24/18 09:14 Neosynephrine Administered 02/24/18 09:15 Dose 1,000 mcg .ROUTE .STK-MED ONE Promethazine HCl 12.5 mg 02/21/18 22:41 02/21/18 22:49 Phenergan IVP 02/21/18 22:42 12.5 mg ONCE ONE Administration Promethazine HCl 6.25 - 12.5 mg 02/21/18 23:51 02/22/18 05:43 Phenergan IVP 08/20/18 23:50 12.5 mg Q6HRS PRN Administration Nausea/Vomiting, Use 2nd Propofol Confirm 02/24/18 08:41 Diprivan Administered 02/24/18 08:42 Dose 200 mg .ROUTE .STK-MED ONE Rifaximin 550 mg 02/22/18 21:00 02/22/18 22:15 Xifaxan PO 02/22/18 23:59 550 mg BID GABINO Administration Protocol Rocuronium Gay Confirm 02/24/18 08:41 Zemuron Administered 02/24/18 08:42 Dose 50 mg .ROUTE .STK-MED ONE Sugammadex Sodium Confirm 02/24/18 09:47 Bridion Administered 02/24/18 09:48 Dose 200 mg IVP .STK-MED ONE Physical Exam - Physical Exam General Appearance: thin Respiratory: lungs clear, normal breath sounds Cardiac/Chest: regular rate, rhythm Abdomen: non-tender, soft Skin: normal color Neuro/Psych: alert, normal mood/affect, oriented x 3 ICD10 Worksheet Patient Problems: Problems Problem Status Onset Compression fracture of body of thoracic vertebra Acute Diarrhea Acute Lightheadedness Acute Nausea Acute Abdominal abscess Acute Abdominal pain Acute Dehydration Acute Hypochloremia Acute Intractable vomiting Acute Near syncope Acute Shortness of breath Acute Syncope Acute Volume depletion Acute
[2018-02-26] MEDS: OCTREOTIDE 100 MCG/1 ML INJ SC SCH ×4 (10:14→22:06)
[2018-02-26] MEDS: lamoTRIgine 100 MG TAB PO SCH ×2 (10:36→21:11)
[2018-02-26] MEDS: PANTOPRAZOLE SODIUM 40 MG TAB PO SCH ×2 (10:36→10:37)
[2018-02-26] MEDS: LIPASE 12,000/AMYLASE/PROTEASE (CREON) 1 CAP PO SCH ×3 (10:38→16:54)
[2018-02-26] MEDS: CHOLECALCIFEROL VIT D3 1,000 UNITS TAB PO SCH (10:38)
[2018-02-26] MEDS: MULTIVITAMINS 1 EACH TAB PO SCH (10:38)
[2018-02-26] MEDS: busPIRone 5 MG TAB PO SCH ×3 (10:38→21:11)
[2018-02-26] MEDS: GLUTAMINE (GLUTASOLVE) 1 EACH PKT PO SCH ×3 (10:39→21:12)
--- NOTE | 2018-02-26 12:34 | HOSPPROG ---
Hospitalist Progress Note Assessment/Plan: #High ostomy output: -5IHAA urine, VIP, gastrin pending. Normal immunoglobulins. -Trial of antidiarrheals and short-term octreotide, codeine. -RN to observe ostomy output for accurate documentation -She is requesting tunneled-catheter/port. Concern of risk of infection. Need to weigh risk/benefit #Chronic pain and opioid dependency: -conversation with she and mother today explaining risks of chronic opioids. -Spoke with PCP, Dr. Hill. Agree with weaning oxycodone. Was recently discharged on Oxycodone 20mg q6hr. Decreased to 15mg. Will allow q4hr with recent kyphoplasty # T5-T9 compression fractures: s/p T10 kyphoplasty 02/24. Tizanidine added # Anxiety/depression: -wean down Ativan. Cont Buspar. #Suspected adrenal insuffiency: likely from chronic opioids -appropriate response to cortisol stim test -FU with Endo, Dr. Calderon #Osteoporosis: given her GI issues she would likely benefit from IV bisphosphonate. Spoke with Dr. Calderon who will review chart and let me know recs # SMA syndrome status post surgical release with Dr. Yao # Sseizure disorder continue home medications #Severe protein calorie malnutrition - long standing issue. Dietary consulted #Diet: regular #DVT ppx: ambulating #Disp:cont inpatient admission for labs studies, dietary consult. Mother at bedside and questions answered Subjective: hihg-ostomy output overnight Objective: Vital Signs Temp Pulse Resp BP Pulse Ox 36.7 C 83 16 87/57 L 96 02/26/18 07:45 02/26/18 07:45 02/26/18 07:45 02/26/18 07:45 02/26/18 07:45 Laboratory Results 02/24/18 16:50 02/26/18 04:40 02/25/18 02/26/18 02/27/18 05:59 05:59 05:59 Intake Total 3131 900 Output Total 3000 3100 500 Balance 131 -2200 -500 PT 14.3 SEC (12.0-15.0) 02/24/18 05:20 INR 1.09 (0.83-1.16) 02/24/18 05:20 - Time Spent With Patient Time Spent with Patient: greater than 35 minutes Time Spent with Patient: Greater than 35 minutes spent on this patients care, greater than 50% of time spent counseling, educating, and coordinating care regarding the above mentioned plan. - Physical Exam Constitutional: other (frail, pale) Ears, Nose, Mouth, Throat: moist mucous membranes Cardiovascular: regular rate and rhythym Respiratory: no respiratory distress Gastrointestinal: normoactive bowel sounds, other (osotomy pink) Genitourinary: No owen in urethra Skin: warm Musculoskeletal: full muscle strength Neurologic: AAOx3, CN II-XII Intact Psychiatric: interacting appropriately ICD10 Worksheet Patient Problems: Problems Problem Status Onset Compression fracture of body of thoracic vertebra Acute Diarrhea Acute Lightheadedness Acute Nausea Acute Abdominal abscess Acute Abdominal pain Acute Dehydration Acute Hypochloremia Acute Intractable vomiting Acute Near syncope Acute Shortness of breath Acute Syncope Acute Volume depletion Acute
[2018-02-26] MEDS: NS 1,000 ML IV SCH (13:12)
--- NOTE | 2018-02-26 13:31 | ASMTCMCOM ---
CM Note CM Note Notes: Reviewed plan of care with MD. Patient current with [facility]. Uses 1 liter of NS per day for hydration at home. Has PICC. Likely to resume previous services when she goes home. CM to follow. Plan: Home with resumption of prior sevices when medically cleared for dc. Referrals in allscripts to [facility] as well as [facility]. Date Signed: 02/26/2018 01:31 PM Electronically Signed By:Yasmine Ferguson RN
--- NOTE | 2018-02-26 13:55 | SOAPPROG ---
SOAP Progress Note Assessment/Plan: Assessment/Plan: Continues to have high ileostomy output. Ostomy output decreasing daily on I/O report, which is encouraging. Continue with medical management as her hospital medicine and GI. Again discussed tunneled catheter as an outpatient setting if necessary, but would like to complete medical work up and management prior. Will continue to follow in an outpatient setting. Patient case discussed with Dr. Yao. 02/26/18 17:21 Subjective: No overnight concerns. Patient states she continues to have high volume and frequent ostomy output (every 1-2 hours). Output remains watery orange. No nausea. Complains of low abdominal pain. Inquires again about tunneled catheter. Objective: Vital Signs Temp Pulse Resp BP Pulse Ox 36.9 C 87 16 105/70 94 02/26/18 12:32 02/26/18 12:32 02/26/18 12:32 02/26/18 12:32 02/26/18 12:32 Laboratory Results 02/24/18 16:50 02/26/18 04:40 02/25/18 02/26/18 02/27/18 05:59 05:59 05:59 Intake Total 3131 900 Output Total 3000 3100 500 Balance 131 -2200 -500 PT 14.3 SEC (12.0-15.0) 02/24/18 05:20 INR 1.09 (0.83-1.16) 02/24/18 05:20 Physical Exam: General: Ambulating in room, A&O x3, appears comfortable HEENT: anicteric, facial fullness Heart: RRR Lungs: CTA bilateral Abdomen: soft, nondistended, mild bilateral quadrant tenderness to palpation. Well healed midline laparotomy incision. Ileostomy stoma pink without tenderness or erythema. Back: Kyphotic Extremities: unremarkable ICD10 Worksheet Patient Problems: Problems Problem Status Onset Compression fracture of body of thoracic vertebra Acute Diarrhea Acute Lightheadedness Acute Nausea Acute Abdominal abscess Acute Abdominal pain Acute Dehydration Acute Hypochloremia Acute Intractable vomiting Acute Near syncope Acute Shortness of breath Acute Syncope Acute Volume depletion Acute
[2018-02-27] MEDS: LORazepam 2 MG/ML INJ IVP PRN ×3 (02:06→20:15)
[2018-02-27] MEDS: CODEINE SULF 30 MG TAB PO PRN ×3 (02:06→20:16)
[2018-02-27] MEDS: PROMETHAZINE HCL 25 MG/ML INJ IVP PRN ×4 (04:53→23:07)
[2018-02-27] MEDS: oxyCODONE ORAL SOLUTION 10 MG/0.5 ML UDSYR PO PRN ×4 (04:55→21:31)
[2018-02-27] MEDS: NS 1,000 ML IV SCH ×2 (08:47→20:25)
--- NOTE | 2018-02-27 10:24 | SOAPPROG ---
SOAP Progress Note Assessment/Plan: Assessment: Less output according to nursing I's and O's HIV negative, Gastrin normal. Normal Immunoglobulins. I would not be in favor of tunneled catheter. Patient feels that Octreotide is causing cramping. Plan: 1. 24 hour urine for 5HIAA pending. 2. D/C on octreotide sq 3. Oral Hydration as outline previously. 4. Continue on Codeine 5. Patient is interested in test for SIBO, [facility]. Would probably treat empirically 6. Dr. Gold to take over GI coverage at 5 pm 7. Given complexity of her case she might be better served at tertiary care center that specializes in Motility disorders. 02/27/18 11:29 Subjective: CC: HOS Less output but more cramping. Would like to stop Octreotide and asking about SIBO breath test Objective: Vital Signs Temp Pulse Resp BP Pulse Ox 36.7 C 73 14 108/71 96 02/27/18 04:52 02/27/18 04:52 02/27/18 04:52 02/27/18 04:52 02/27/18 04:52 Laboratory Results 02/24/18 16:50 02/26/18 04:40 02/26/18 02/27/18 02/28/18 05:59 05:59 05:59 Intake Total 900 3556 Output Total 3100 3400 Balance -2200 156 PT 14.3 SEC (12.0-15.0) 02/24/18 05:20 INR 1.09 (0.83-1.16) 02/24/18 05:20 Generic Name Dose Route Start Last Admin Trade Name Victorianoq PRN Reason Stop Dose Admin Acetaminophen 650 mg 02/21/18 23:51 Tylenol PO 08/20/18 23:50 Q4HRS PRN Pain, Mild/Fever, Can Take PO Alteplase, Recombinant 2 mg 02/22/18 13:48 Cathflo Activase IVP 08/21/18 13:47 PRN PRN Per PICC line policy Lipase/Protease/Amylase 1 cap 02/22/18 18:00 02/27/18 11:03 Creon PO 08/21/18 17:59 1 cap TIDMEAL GABINO Administration Buspirone HCl 5 mg 02/22/18 16:00 02/27/18 11:02 Buspar PO 08/21/18 15:59 5 mg TID GABINO Administration Cholecalciferol 1,000 units 02/23/18 09:00 02/27/18 11:03 Vitamin D PO 08/22/18 08:59 1,000 units DAILY GABINO Administration Codeine Sulfate 30 mg 02/25/18 10:37 02/27/18 02:06 Codeine PO 03/07/18 10:36 30 mg Q6H PRN Administration Pain, Moderate Able to Take PO Glutamine 1 each 02/22/18 16:00 02/27/18 11:02 Glutasolve Resource PO 08/21/18 15:59 1 each TID GABINO Administration Haloperidol Lactate 1 mg 02/22/18 22:46 Haldol Injection IVP 08/21/18 22:45 Q6HRS PRN Nausea Sodium Chloride 1,000 mls @ 100 mls/hr 02/21/18 23:45 02/27/18 08:47 Ns IV 08/20/18 23:44 1,000 mls CONT GABINO Administration Lamotrigine 50 mg 02/22/18 21:00 02/27/18 11:02 Lamictal PO 08/21/18 20:59 50 mg BID GABINO Administration Loperamide HCl 2 mg 02/23/18 15:14 Imodium Oral Liquid PO 08/22/18 15:13 QID PRN Diarrhea/Loose Stools Lorazepam 0.5 mg 02/24/18 06:17 02/27/18 02:06 Ativan Injection IVP 08/21/18 00:54 0.5 mg Q6H PRN Administration Anxiety, nausea Multivitamins 1 each 02/23/18 09:00 02/27/18 11:03 Tab-A-Yesenia PO 08/22/18 08:59 1 each DAILY GABINO Administration Octreotide Acetate 100 mcg 02/24/18 09:00 02/27/18 10:45 Sandostatin SC 08/23/18 08:59 Not Given TID GABINO Oxycodone HCl 15 mg 02/25/18 19:31 02/27/18 11:01 Roxicodone Intensol PO 03/07/18 17:05 15 mg Q4 PRN Administration Pain, Severe Pantoprazole Sodium 40 mg 02/23/18 15:45 02/27/18 11:03 Protonix PO 08/22/18 15:44 40 mg DAILY GABINO Administration Promethazine HCl 25 mg 02/22/18 14:04 02/27/18 11:02 Phenergan IVP 08/20/18 23:50 25 mg Q6HRS PRN Administration Nausea/Vomiting, Use 2nd Tizanidine HCl 4 mg 02/24/18 15:47 02/25/18 23:18 Zanaflex PO 08/23/18 15:59 4 mg TID PRN Administration muscle spasm Discontinued Medications Generic Name Dose Route Start Last Admin Trade Name Freq PRN Reason Stop Dose Admin Bupivacaine HCl Confirm 02/24/18 10:32 Sensorcaine 0.5% Vial Administered 02/24/18 10:33 Dose 30 ml .ROUTE .STK-MED ONE Cefazolin Sodium Confirm 02/24/18 09:25 Ancef Administered 02/24/18 09:26 Dose 1 gm .ROUTE .STK-MED ONE Cefazolin Sodium Confirm 02/24/18 09:25 Ancef Administered 02/24/18 09:26 Dose 1 gm .ROUTE .STK-MED ONE Cosyntropin 0.25 mg 02/25/18 06:00 02/25/18 06:02 Cortrosyn Syringe IVP 02/25/18 06:01 0.25 mg DAILY@0600 ONE Administration Dexamethasone 10 mg 02/24/18 10:15 02/24/18 12:29 Decadron Injection IVP 02/24/18 10:16 Not Given ONCALL ONE Dicyclomine HCl 10 mg 02/22/18 13:48 Bentyl PO 08/21/18 13:47 QID PRN abdominal pain Famotidine 20 mg 02/23/18 21:00 02/24/18 11:47 Pepcid PO 08/22/18 20:59 20 mg BID GABINO Administration Fentanyl Confirm 02/24/18 08:41 Sublimaze Administered 02/24/18 08:42 Dose 250 mcg .ROUTE .STK-MED ONE Fentanyl 25 - 100 mcg 02/24/18 10:03 02/24/18 10:43 Sublimaze IVP 02/24/18 11:03 50 mcg Q5M PRN Administration PACU, IMMEDIATE Pain control Fentanyl Confirm 02/24/18 10:15 Sublimaze Administered 02/24/18 10:16 Dose 100 mcg .ROUTE .STK-MED ONE Fentanyl 0 mcg 02/24/18 10:15 Sublimaze IVP 02/24/18 11:16 ONCALL PRN Per provider during procedure Flumazenil 0 mg 02/24/18 10:15 Romazicon IVP 02/24/18 11:16 ONCALL PRN Per provider during procedure Hydromorphone HCl 0.5 mg 02/21/18 22:41 02/21/18 22:50 Dilaudid IVP 02/21/18 22:42 0.5 mg EDNOW ONE Administration Hydromorphone HCl 0.4 mg 02/22/18 00:35 02/22/18 10:35 Dilaudid IVP 03/04/18 00:34 0.4 mg Q4HRS PRN Administration Pain, Severe Unable to Take PO Hydromorphone HCl 0.4 mg 02/22/18 14:04 02/25/18 10:56 Dilaudid IVP 03/04/18 00:34 0.4 mg Q2HRS PRN Administration Pain, Severe Unable to Take PO Hydromorphone HCl 0.1 - 0.4 mg 02/24/18 10:03 Dilaudid IVP 02/24/18 11:03 Q10M PRN PACU, PAIN Hydromorphone HCl 0.4 mg 02/24/18 22:45 02/24/18 22:45 Dilaudid IVP 02/24/18 22:46 0.4 mg ONCE ONE Administration Sodium Chloride 1,000 mls @ 0 mls/hr 02/21/18 22:41 02/21/18 22:49 Ns IV 02/21/18 22:42 1,000 mls EDNOW ONE Administration Protocol Wide Open Cefazolin Sodium/Dextrose 100 mls @ 200 mls/hr 02/24/18 10:15 02/24/18 11:32 Ancef IV 02/24/18 10:44 Not Given ONCALL ONE Protocol Sodium Chloride 1,000 mls @ 100 mls/hr 02/24/18 10:15 02/24/18 11:36 Ns IV 02/24/18 20:14 1,000 mls ONCALL ONE Administration Iopamidol Confirm 02/24/18 10:32 Isovue-300 Administered 02/24/18 10:33 Dose 100 ml .ROUTE .STK-MED ONE Lidocaine HCl Confirm 02/24/18 08:41 Xylocaine-Mpf 2% Vial Administered 02/24/18 08:42 Dose 5 ml .ROUTE .STK-MED ONE Lidocaine HCl Confirm 02/24/18 10:32 Lidocaine Hcl 1% Administered 02/24/18 10:33 Dose 300 mg .ROUTE .STK-MED ONE Lorazepam 1 mg 02/22/18 00:55 02/23/18 21:15 Ativan Injection IVP 08/21/18 00:54 1 mg Q4HRS PRN Administration Anxiety, nausea Meperidine HCl 12.5 - 25 mg 02/24/18 10:03 Demerol IVP 02/24/18 11:03 Q10M PRN PACU, shivering/rigors Midazolam HCl Confirm 02/24/18 08:43 Versed Administered 02/24/18 08:44 Dose 2 mg .ROUTE .STK-MED ONE Midazolam HCl 0 mg 02/24/18 10:15 Versed IVP 02/24/18 11:16 ONCALL PRN Per provider during procedure Naloxone HCl 0.1 mg 02/24/18 10:03 Narcan IVP 02/24/18 11:03 Q2M PRN PACU Resp Rate <10/min Naloxone HCl 0 mg 02/24/18 10:15 Narcan IVP 02/24/18 11:16 ONCALL PRN Per provider during procedure Ondansetron HCl 4 mg 02/21/18 23:51 Zofran IVP 08/20/18 23:50 Q4HRS PRN Nausea/Vomiting, Can't Take PO Ondansetron HCl 4 mg 02/21/18 23:51 Zofran Odt PO 08/20/18 23:50 Q4HRS PRN Nausea/Vomiting, Use 1st Ondansetron HCl Confirm 02/24/18 09:45 Zofran Administered 02/24/18 09:46 Dose 4 mg .ROUTE .STK-MED ONE Oxycodone HCl 10 mg 02/25/18 10:36 02/25/18 15:39 Roxicodone Intensol PO 03/07/18 10:35 10 mg Q6 PRN Administration Pain, Severe Oxycodone HCl 15 mg 02/25/18 17:06 Roxicodone Intensol PO 03/07/18 10:35 Q6 PRN Pain, Severe Phenylephrine HCl Confirm 02/24/18 09:14 Neosynephrine Administered 02/24/18 09:15 Dose 1,000 mcg .ROUTE .STK-MED ONE Promethazine HCl 12.5 mg 02/21/18 22:41 02/21/18 22:49 Phenergan IVP 02/21/18 22:42 12.5 mg ONCE ONE Administration Promethazine HCl 6.25 - 12.5 mg 02/21/18 23:51 02/22/18 05:43 Phenergan IVP 08/20/18 23:50 12.5 mg Q6HRS PRN Administration Nausea/Vomiting, Use 2nd Propofol Confirm 02/24/18 08:41 Diprivan Administered 02/24/18 08:42 Dose 200 mg .ROUTE .STK-MED ONE Rifaximin 550 mg 02/22/18 21:00 02/22/18 22:15 Xifaxan PO 02/22/18 23:59 550 mg BID GABINO Administration Protocol Rocuronium [place] Confirm 02/24/18 08:41 Zemuron Administered 02/24/18 08:42 Dose 50 mg .ROUTE .STK-MED ONE Sugammadex Sodium Confirm 02/24/18 09:47 Bridion Administered 02/24/18 09:48 Dose 200 mg IVP .STK-MED ONE Physical Exam - Physical Exam General Appearance: alert, no apparent distress Respiratory: lungs clear, normal breath sounds Cardiac/Chest: regular rate, rhythm Abdomen: non-tender, soft Skin: normal color, warm/dry Neuro/Psych: alert, normal mood/affect, oriented x 3 ICD10 Worksheet Patient Problems: Problems Problem Status Onset Compression fracture of body of thoracic vertebra Acute Diarrhea Acute Lightheadedness Acute Nausea Acute Abdominal abscess Acute Abdominal pain Acute Dehydration Acute Hypochloremia Acute Intractable vomiting Acute Near syncope Acute Shortness of breath Acute Syncope Acute Volume depletion Acute
[2018-02-27] MEDS: OCTREOTIDE 100 MCG/1 ML INJ SC SCH ×3 (10:45→21:13)
[2018-02-27] MEDS: lamoTRIgine 100 MG TAB PO SCH ×2 (11:02→20:16)
[2018-02-27] MEDS: GLUTAMINE (GLUTASOLVE) 1 EACH PKT PO SCH ×3 (11:02→21:27)
[2018-02-27] MEDS: busPIRone 5 MG TAB PO SCH ×3 (11:02→21:27)
[2018-02-27] MEDS: PANTOPRAZOLE SODIUM 40 MG TAB PO SCH (11:03)
[2018-02-27] MEDS: MULTIVITAMINS 1 EACH TAB PO SCH (11:03)
[2018-02-27] MEDS: CHOLECALCIFEROL VIT D3 1,000 UNITS TAB PO SCH (11:03)
[2018-02-27] MEDS: LIPASE 12,000/AMYLASE/PROTEASE (CREON) 1 CAP PO SCH ×3 (11:03→18:47)
--- NOTE | 2018-02-27 15:38 | HOSPPROG ---
Hospitalist Progress Note Assessment/Plan: #High ostomy output: -5IHAA urine, VIP, gastrin pending. Normal immunoglobulins. -Trial of antidiarrheals. Day 4 Octreotide. Codeine helping, so will increase dose today -RN to observe ostomy output for accurate documentation -She is requesting tunneled-catheter/port. Concern of risk of infection. Need to weigh risk/benefit #Chronic pain and opioid dependency: -conversation with she and mother today explaining risks of chronic opioids. -Spoke with PCP, Dr. Hill. Agree with weaning oxycodone. Was recently discharged on Oxycodone 20mg q6hr. Decreased to 15mg. Will allow q4hr with recent kyphoplasty # T5-T9 compression fractures: s/p T10 kyphoplasty 02/24. Tizanidine added # Anxiety/depression: -wean down Ativan. Cont Buspar. #Suspected adrenal insufficiency: likely from chronic opioids -appropriate response to cortisol stim test -FU with Endo, Dr. Calderon #Osteoporosis: given her GI issues she would likely benefit from IV bisphosphonate. Spoke with Dr. Calderon who will review chart and let me know recs # SMA syndrome status post surgical release with Dr. aYo # Seizure disorder: home medications #Severe protein calorie malnutrition - long standing issue. Dietary consulted #Diet: regular #DVT ppx: ambulating #Disp:cont inpatient admission for labs studies, IVFs, antidiarrheals Subjective: cramping and bloating after Octerotide last night Objective: Vital Signs Temp Pulse Resp BP Pulse Ox 36.4 C 91 16 99/63 L 95 02/27/18 15:31 02/27/18 15:31 02/27/18 15:31 02/27/18 15:31 02/27/18 15:31 Laboratory Results 02/24/18 16:50 02/26/18 04:40 02/26/18 02/27/18 02/28/18 05:59 05:59 05:59 Intake Total 900 3556 Output Total 3100 3400 1000 Balance -2200 156 -1000 PT 14.3 SEC (12.0-15.0) 02/24/18 05:20 INR 1.09 (0.83-1.16) 02/24/18 05:20 - Time Spent With Patient Time Spent with Patient: greater than 35 minutes Time Spent with Patient: Greater than 35 minutes spent on this patients care, greater than 50% of time spent counseling, educating, and coordinating care regarding the above mentioned plan. ICD10 Worksheet Patient Problems: Problems Problem Status Onset Compression fracture of body of thoracic vertebra Acute Diarrhea Acute Lightheadedness Acute Nausea Acute Abdominal abscess Acute Abdominal pain Acute Dehydration Acute Hypochloremia Acute Intractable vomiting Acute Near syncope Acute Shortness of breath Acute Syncope Acute Volume depletion Acute
[2018-02-28] MEDS: oxyCODONE ORAL SOLUTION 10 MG/0.5 ML UDSYR PO PRN ×5 (01:19→20:07)
[2018-02-28] MEDS: LORazepam 2 MG/ML INJ IVP PRN ×3 (02:24→20:07)
[2018-02-28] MEDS: CODEINE SULF 30 MG TAB PO PRN ×4 (02:24→23:40)
[2018-02-28] MEDS: PROMETHAZINE HCL 25 MG/ML INJ IVP PRN ×4 (05:19→23:41)
[2018-02-28] MEDS: NS 1,000 ML IV SCH ×3 (05:21→16:08)
[2018-02-28] MEDS: OCTREOTIDE 100 MCG/1 ML INJ SC SCH ×3 (08:51→19:42)
[2018-02-28] MEDS: busPIRone 5 MG TAB PO SCH ×3 (09:03→21:04)
[2018-02-28] MEDS: CHOLECALCIFEROL VIT D3 1,000 UNITS TAB PO SCH (09:03)
[2018-02-28] MEDS: MULTIVITAMINS 1 EACH TAB PO SCH (09:03)
[2018-02-28] MEDS: lamoTRIgine 100 MG TAB PO SCH ×2 (09:03→21:04)
[2018-02-28] MEDS: PANTOPRAZOLE SODIUM 40 MG TAB PO SCH ×2 (09:04→15:15)
[2018-02-28] MEDS: GLUTAMINE (GLUTASOLVE) 1 EACH PKT PO SCH ×3 (11:25→21:04)
[2018-02-28] MEDS: LIPASE 12,000/AMYLASE/PROTEASE (CREON) 1 CAP PO SCH ×3 (11:25→19:41)
--- NOTE | 2018-02-28 14:57 | ASMTCMCOM ---
CM Note CM Note Notes: Discussed plan of care with Hospital Medicine. Patient feeling better. Likely to dc in next few days with resumption of home services. [facility]. Plan: As above. Date Signed: 02/28/2018 02:56 PM Electronically Signed By:Yasmine Ferguson RN
--- NOTE | 2018-02-28 16:15 | HOSPPROG ---
Hospitalist Progress Note Assessment/Plan: #High ostomy output: decreased -5IHAA urine, VIP, gastrin pending. Normal immunoglobulins. -Trial of antidiarrheals. Completed 5 days Octreotide. Codeine -Codeine seems to help most -RN to observe ostomy output for accurate documentation -She is requesting tunneled-catheter/port. Concern of risk of infection. Need to weigh risk/benefit #Chronic pain and opioid dependency: -conversation with she and mother today explaining risks of chronic opioids. -Spoke with PCP, Dr. Hill. Agree with weaning oxycodone. Was recently discharged on Oxycodone 20mg q6hr. Decreased to 15mg. Will allow q4hr with recent kyphoplasty # T5-T9 compression fractures: s/p T10 kyphoplasty 02/24. Tizanidine added # Anxiety/depression: -wean down Ativan. Cont Buspar. #Suspected adrenal insufficiency: likely from chronic opioids -appropriate response to cortisol stim test -FU with Endo, Dr. Calderon #Osteoporosis: given her GI issues she would likely benefit from IV bisphosphonate. -she needs to schedule appt with Dr Calderon # SMA syndrome status post surgical release with Dr. Yao # Seizure disorder: home medications #Severe protein calorie malnutrition - long standing issue. Dietary consulted #Diet: regular #DVT ppx: ambulating #Disp:cont inpatient admission for labs studies, IVFs, antidiarrheals. Plan to DC 1-2 days Subjective: feels better. Only had to empty ostomy once Objective: Vital Signs Temp Pulse Resp BP Pulse Ox 36.3 C 117 H 16 125/77 H 97 02/28/18 15:49 02/28/18 15:49 02/28/18 15:49 02/28/18 15:49 02/28/18 15:49 Laboratory Results 02/24/18 16:50 02/26/18 04:40 02/27/18 02/28/18 03/01/18 05:59 05:59 05:59 Intake Total 3556 4177 Output Total 3400 2250 300 Balance 156 1927 -300 PT 14.3 SEC (12.0-15.0) 02/24/18 05:20 INR 1.09 (0.83-1.16) 02/24/18 05:20 - Time Spent With Patient Time Spent with Patient: greater than 35 minutes Time Spent with Patient: Greater than 35 minutes spent on this patients care, greater than 50% of time spent counseling, educating, and coordinating care regarding the above mentioned plan. - Physical Exam Constitutional: other (smiling today) Eyes: PERRL Ears, Nose, Mouth, Throat: moist mucous membranes Cardiovascular: regular rate and rhythym Respiratory: no respiratory distress Gastrointestinal: normoactive bowel sounds, soft, non-tender abdomen Genitourinary: no bladder fullness Skin: warm Musculoskeletal: full muscle strength Neurologic: AAOx3 Psychiatric: interacting appropriately Lymph, Heme, Immunologic: no cervical LAD ICD10 Worksheet Patient Problems: Problems Problem Status Onset Compression fracture of body of thoracic vertebra Acute Diarrhea Acute Lightheadedness Acute Nausea Acute Abdominal abscess Acute Abdominal pain Acute Dehydration Acute Hypochloremia Acute Intractable vomiting Acute Near syncope Acute Shortness of breath Acute Syncope Acute Volume depletion Acute
--- NOTE | 2018-02-28 16:56 | SOAPPROG ---
SOAP Progress Note Assessment/Plan: Assessment: Plan: 02/28/18 16:53 A/P 1. High ostomy output- decreasing. Continue present management. 2. Nausea- unsure of etiology but suspect functional versus motility induced. She has been tried on most every GI medication over the years with no relief. Has had prior w/u at [facility] and [facility] with no significant benefit. Recommend to revisit tertiary referral center as outpatient. GI will sign off. Thank you for allowing me to participate in the care of your patient. Subjective: cc: nausea. ostomy output decreasing. C/o of nausea. Tolerating diet. Objective: Vital Signs Temp Pulse Resp BP Pulse Ox 36.3 C 117 H 16 125/77 H 97 02/28/18 15:49 02/28/18 15:49 02/28/18 15:49 02/28/18 15:49 02/28/18 15:49 Laboratory Results 02/24/18 16:50 02/26/18 04:40 02/27/18 02/28/18 03/01/18 05:59 05:59 05:59 Intake Total 3556 4177 1013 Output Total 3400 2250 1300 Balance 156 1927 -287 PT 14.3 SEC (12.0-15.0) 02/24/18 05:20 INR 1.09 (0.83-1.16) 02/24/18 05:20 Physical Exam - Physical Exam General Appearance: alert, mild distress EENT: No scleral icterus (R), No scleral icterus (L) Respiratory: lungs clear, normal breath sounds Cardiac/Chest: regular rate, rhythm Abdomen: soft, No non-tender (minimal in ruq) Skin: normal color Neuro/Psych: alert, normal mood/affect, oriented x 3 ICD10 Worksheet Patient Problems: Problems Problem Status Onset Intractable vomiting Acute Dehydration Acute Abdominal pain Acute Volume depletion Acute Syncope Acute Lightheadedness Acute Diarrhea Acute Nausea Acute Compression fracture of body of thoracic vertebra Acute Abdominal abscess Acute Shortness of breath Acute Near syncope Acute Hypochloremia Acute
[2018-03-01] MEDS: oxyCODONE ORAL SOLUTION 10 MG/0.5 ML UDSYR PO PRN ×6 (00:33→23:50)
[2018-03-01] MEDS: NS 1,000 ML IV SCH ×3 (00:35→22:25)
[2018-03-01] MEDS: LORazepam 2 MG/ML INJ IVP PRN ×3 (02:24→18:32)
--- NOTE | 2018-03-01 09:36 | ASMTCMCOM ---
CM Note CM Note Notes: Patient up ambulating in [place]. Plan unchanged that she will dc home with resumption of previous services. Plan: Dc with [facility] and [facility]. Date Signed: 03/01/2018 09:35 AM Electronically Signed By:Yasmine Ferguson RN
[2018-03-01] MEDS: PROMETHAZINE HCL 25 MG/ML INJ IVP PRN ×3 (10:05→22:25)
[2018-03-01] MEDS: OCTREOTIDE 100 MCG/1 ML INJ SC SCH ×3 (10:06→22:27)
[2018-03-01] MEDS: LIPASE 12,000/AMYLASE/PROTEASE (CREON) 1 CAP PO SCH ×3 (10:08→16:10)
[2018-03-01] MEDS: busPIRone 5 MG TAB PO SCH ×3 (10:08→21:57)
[2018-03-01] MEDS: lamoTRIgine 100 MG TAB PO SCH ×2 (10:08→21:57)
[2018-03-01] MEDS: MULTIVITAMINS 1 EACH TAB PO SCH (10:09)
[2018-03-01] MEDS: GLUTAMINE (GLUTASOLVE) 1 EACH PKT PO SCH ×3 (10:09→21:58)
[2018-03-01] MEDS: CHOLECALCIFEROL VIT D3 1,000 UNITS TAB PO SCH (10:09)
[2018-03-01] MEDS: PANTOPRAZOLE SODIUM 40 MG TAB PO SCH (10:09)
--- NOTE | 2018-03-01 12:16 | ASMTCMCOM ---
CM Note CM Note Notes: Patient requested to speak with CM in anticipation of discharge tomorrow. She reports that she would benefit from IVP phenergan and knows of other people who get it at home. She would also like to have a smart placed prior to discharge. 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 CM will see her again in the am to offer assistance in discharge. Reported that line placement is between her and surgeon. Plan: Home with [facility] and [facility]. Date Signed: 03/01/2018 12:15 PM Electronically Signed By:Yasmine Ferguson RN
[2018-03-01] MEDS: CODEINE SULF 30 MG TAB PO PRN ×2 (12:25→18:31)
--- NOTE | 2018-03-01 14:27 | HOSPPROG ---
Hospitalist Progress Note Assessment/Plan: #High ostomy output: improving. Codeine seems to be working most -5IHAA urine, VIP, gastrin pending. Normal immunoglobulins. -Trial of antidiarrheals. Completed 5 days Octreotide. -Codeine seems to help most -She is requesting tunneled-catheter/port. Concern of risk of infection. Need to weigh risk/benefit. Can FU with PCP and Dr. Yao #Chronic pain and opioid dependency: -conversation with she and mother today explaining risks of chronic opioids. -Spoke with PCP, Dr. Hill. Agree with weaning oxycodone. -Will DC on 15mg q4 (previously on 20mg q6hr), only 10mg difference with goal to wean outpatient # T5-T9 compression fractures: s/p T10 kyphoplasty 02/24. Tizanidine added # Anxiety/depression: -wean down Ativan. Cont Buspar. #Nausea: requesting IV antiemetics at DC. Not recommended. PO phenergren #Suspected adrenal insufficiency: likely from chronic opioids -appropriate response to cortisol stim test -FU with Endo, Dr. Calderon #Osteoporosis: given her GI issues she would likely benefit from IV bisphosphonate. -she needs to schedule appt with Dr Calderon # SMA syndrome status post surgical release with Dr. Yao # Seizure disorder: home medications #Severe protein calorie malnutrition - long standing issue. Dietary consulted #Diet: regular #DVT ppx: ambulating #Disp: plan to DC tomorrow -I filled 4-5 days of Rxs here at [facility] -she will FU with Dr. Cotton for further management; I emailed her plan -FU Dr. Yao -Make appt with Dr. Calderon, Endocrinology Subjective: feels the best control of pain and nausea now than in months Objective: Vital Signs Temp Pulse Resp BP Pulse Ox 36.6 C 89 16 98/69 L 99 03/01/18 08:33 03/01/18 08:33 03/01/18 08:33 03/01/18 08:33 03/01/18 08:33 Laboratory Results 02/24/18 16:50 02/26/18 04:40 02/28/18 03/01/18 03/02/18 05:59 05:59 05:59 Intake Total 4177 2894 Output Total 2250 1300 Balance 1927 1594 PT 14.3 SEC (12.0-15.0) 02/24/18 05:20 INR 1.09 (0.83-1.16) 02/24/18 05:20 - Time Spent With Patient Time Spent with Patient: greater than 35 minutes Time Spent with Patient: Greater than 35 minutes spent on this patients care, greater than 50% of time spent counseling, educating, and coordinating care regarding the above mentioned plan. - Physical Exam Constitutional: no apparent distress Eyes: PERRL Ears, Nose, Mouth, Throat: moist mucous membranes Cardiovascular: regular rate and rhythym Respiratory: no respiratory distress Gastrointestinal: normoactive bowel sounds, soft, non-tender abdomen, No tenderness Skin: warm Neurologic: AAOx3, CN II-XII Intact Psychiatric: interacting appropriately ICD10 Worksheet Patient Problems: Problems Problem Status Onset Compression fracture of body of thoracic vertebra Acute Diarrhea Acute Lightheadedness Acute Nausea Acute Abdominal abscess Acute Abdominal pain Acute Dehydration Acute Hypochloremia Acute Intractable vomiting Acute Near syncope Acute Shortness of breath Acute Syncope Acute Volume depletion Acute
[2018-03-02] MEDS: CODEINE SULF 30 MG TAB PO PRN ×4 (00:36→18:36)
[2018-03-02] MEDS: LORazepam 2 MG/ML INJ IVP PRN ×3 (00:36→15:16)
[2018-03-02] MEDS: oxyCODONE ORAL SOLUTION 10 MG/0.5 ML UDSYR PO PRN ×3 (03:59→16:54)
[2018-03-02] MEDS: PROMETHAZINE HCL 25 MG/ML INJ IVP PRN ×3 (04:39→18:37)
[2018-03-02 08:24] VITALS: BP 84/61
[2018-03-02] MEDS: NS 1,000 ML IV SCH (08:30)
--- NOTE | 2018-03-02 11:02 | ASMTCMCOM ---
CM Note CM Note Notes: Met with patient and her mother. Per their request, I have arranged outpatient appointments with Dr. Segal for 03/13 at 10 am and with Endocrinology Dr. Calderon for April 01 at 10 am. I have put this information on her discharge sheet for her reference. She has [facility] infusion services and [facility] health for PICC care and nursing, as well as [facility] care for symptom management. Plan: To discharge to home with family support and resumption of services as outlined above. Date Signed: 03/02/2018 11:02 AM Electronically Signed By:Yasmine Ferguson RN
[2018-03-02] MEDS: OCTREOTIDE 100 MCG/1 ML INJ SC SCH (11:50)
[2018-03-02] MEDS: MULTIVITAMINS 1 EACH TAB PO SCH (12:08)
[2018-03-02] MEDS: lamoTRIgine 100 MG TAB PO SCH (12:08)
[2018-03-02] MEDS: LIPASE 12,000/AMYLASE/PROTEASE (CREON) 1 CAP PO SCH ×2 (12:08→13:35)
[2018-03-02] MEDS: busPIRone 5 MG TAB PO SCH ×2 (12:09→16:55)
[2018-03-02] MEDS: PANTOPRAZOLE SODIUM 40 MG TAB PO SCH (12:10)
[2018-03-02] MEDS: GLUTAMINE (GLUTASOLVE) 1 EACH PKT PO SCH ×2 (15:17)
[2018-03-02] MEDS: CHOLECALCIFEROL VIT D3 1,000 UNITS TAB PO SCH (15:18)
--- NOTE | 2018-03-02 15:45 | PDIAF ---
- Diagnosis Diagnosis: dehydration, intestinal dysmotility, nausea vomiting Code Status: Full Code - Medication Management Additional Medication Instructions: IV normal saline 1 liter bid, ongoing until such time as her ostomy output is better controlled Discharge Medications: electronically signed and located in the Home Medication List. PICC Care - Routine: Yes - Orders Services needed: Home Care, Registered Nurse Home Care Face to Face: I certify that this patient was under my care and that I had the required [id number] encounter meeting the encounter requirements on the discharge day. My findings support the fact that the patient is homebound as defined in Home Care Face to Face Continued: CMS Chapter 7 Medicare Benefits Manual 30.1.1 , The condition of the patient is such that there exists a normal inability to leave home and consequently, leaving home would require a considerable and taxing effort. Isolation Type: None Diet Recommendation: no restrictions on diet Diet Texture: Regular Texture Diet Additional Instructions: Follow up appointment with Dr. Segal on February at [address] Calderon endocrinology on April 01 at 10 am Make an appointment at your primary care clinic this week - Follow Up Care Current Providers and Referrals: Umu Hill DO [Primary Care Provider] - As per Instructions Richy Yao MD [Medical Doctor] -
--- NOTE | 2018-03-02 16:02 | ASMTCMCOM ---
CM Note CM Note Notes: Discharge orders entered. Patient medically cleared to discharge to home. Appointments scheduled per dc instructions. Final orders in [employer] Courtesy calls to [facility] and [facility] to alert them of discharge to home. [employer] dc to [facility] Palliative care as well. No need for PT or OT at this time. Cm available should other needs arise. Plan: Dc to home with above services. Date Signed: 03/02/2018 04:02 PM Electronically Signed By:Yasmine Ferguson RN
--- NOTE | 2018-03-02 16:03 | ASMTLACE ---
AMBER Length of stay for Answers: 7-13 days current admission Acuity / Level of Answers: No Care: Did the patient have an inpatient admission? Comorbidities - select Answers: Opioid dependence all that apply / Chronic pain Other Notes: Ileostomy, SMA syndrome, adrenal insufficiency, dysmotil ity /pseudo obstruction # of Emergency department Answers: 12+ visits in the last 6 months Score: 16 Date Signed: 03/02/2018 04:02 PM Electronically Signed By:Yasmine Ferguson RN
--- NOTE | 2018-03-02 18:20 | PDDCSUM ---
Discharge Summary Discharge Summary: DISCHARGE SUMMARY DIAGNOSES: * dehydration due to high ileostomy output, hx of gi motility disorder * intractable nausea, vomiting due to above * ongoing pain of prior T10 compression fracture caused by sz; treated with kyphoplasty * chronic pain syndrome, daily dependency on prescribed narcotic * anxiety disorder/depression * osteoporosis * ongoing severe protein calorie malnutrition COMPLICATIONS: none CONSULTATIONS: Dr Ahsan Johnston GI Dr Richy Yao general surgery PROCEDURES: Small bowel follow thru showing rapid transit thru small bowel HOSPITAL COURSE: This patient comes in with recurrence of her ongoing syndrome of dehydration caused by a combination of nausea vomiting and high ileostomy output. She has an intestinal motility disorder of undetermined etiology, and has had multiple prior surgeries due to this. This is her 4th admission here for this issue in the past 6 weeks. She had been using NS IV 1 liter daily at home via a PICC catheter. There was no sign of infection, and stool PCR studies had no pathologic organism. There is no bleeding or signs of inflammatory illness. A small bowel study showed rapid transit, 10 minutes from stomach to ileostomy. Serum gastrin was normal, HIV negative, immunoglobulins normal, CRP normal, and she responded normally to cortrosyn stimulation with good rise in cortisol. Pending tests at this time include 24 hr urine 5 HIAA, and serum VIP. She was treated with ongoing antidiarrheals which have had limited effect. She was treated with octreotide, and it is unclear how much benefit this had. She had good improvement over time in her nausea, and at the time of discharge is taking some po food and fluid. She was seen by a nutitionist who recommended high protein diet. She has recently been started on oral oxycodone for some compression fractures, and reports that she thinks this is helping her gi symptoms, but there is little objective evidence of any change with ongoing rapid intestinal transit. During this stay there was ongoing pain due to a prior T10 compression fx, with prior kyphoplasties at higher levels. She underwent kyphoplasty at T10 at this time. This did seem to provide some help but she still requires analgesic for ongoing pain At this time it is felt she is stable for discharge to home. An increase in her home IV NS from 1 L daily to 1 L bid has been ordered with her home care agency. She is discharged with a picc catheter in place. There was much discussion about how to better control her symptoms but at present we are unable to find any new therapies to recommend. She has had trial in the past of TCAs, and a variety of other medicines to no avail. Her situation was reviewed in detail in discussion between the hospitalist service and her PCP Dr Hill, as well as discussions between Dr Yao and Dr Hill, to coordinate care. Her home medication list was reviewed with Dr Hill. At this time it is recommended by the gastroenterology team that she seek further care at a center specializing in motility disorders, and they will look to coordinate referral. As she has osteoporosis and compression fractures it is recommended she seek care of an quality assurance monitor body and she has an endocrinology appt in 1 week. FOLLOW UP: with her PCP Dr Hill this week with Dr Zamora (gi) in 10 days in endocrinology clinic in 1 week plan on referral to a disorder with motility disorder expertise
--- NOTE | 2018-03-02 18:20 | HOSPPROG ---
Hospitalist Progress Note Objective: Vital Signs Temp Pulse Resp BP Pulse Ox 36.6 C 92 16 84/61 L 94 03/02/18 08:22 03/02/18 08:22 03/02/18 08:22 03/02/18 08:22 03/02/18 08:22 Laboratory Results 02/24/18 16:50 02/26/18 04:40 03/01/18 03/02/18 03/03/18 06:59 06:59 06:59 Intake Total 2894 400 Output Total 1300 1400 Balance 1594 -1000 PT 14.3 SEC (12.0-15.0) 02/24/18 05:20 INR 1.09 (0.83-1.16) 02/24/18 05:20 ICD10 Worksheet Patient Problems: Problems Problem Status Onset Compression fracture of body of thoracic vertebra Acute Diarrhea Acute Lightheadedness Acute Nausea Acute Abdominal abscess Acute Abdominal pain Acute Dehydration Acute Hypochloremia Acute Intractable vomiting Acute Near syncope Acute Shortness of breath Acute Syncope Acute Volume depletion Acute
--- NOTE | 2018-03-02 18:33 | SOAPPROG ---
SOAP Progress Note Assessment/Plan: Assessment: good progress since last week. stoma outputs trending downward. codeine appears to be helping significantly with her output as well as back pain. patient strongly desirous for a tunnelled catheter. discussed case at length with patient/fimarko, mom, and medical care team. my preference is to continue with her newly placed PICC for intermittent IV hydration. if able to get under control, line can be simply removed. if still requiring fluids in the next few weeks, consideration for a tunnelled catheter can be entertained. discussed at length with patient/fimarko. also query if autonomic dysfunction secondary to spinal fractures? they both expressed understanding. patient to be discharged to home tonight. will f/u with dr. soriano from [facility] rather than her ft. genaro ROBERT MD. Plan: 02/25/18 16:41 03/02/18 18:28 Objective: Vital Signs Temp Pulse Resp BP Pulse Ox 36.6 C 92 16 84/61 L 94 03/02/18 08:22 03/02/18 08:22 03/02/18 08:22 03/02/18 08:22 03/02/18 08:22 Laboratory Results 02/24/18 16:50 02/26/18 04:40 03/01/18 03/02/18 03/03/18 05:59 05:59 05:59 Intake Total 2894 400 Output Total 1300 1400 Balance 1594 -1000 PT 14.3 SEC (12.0-15.0) 02/24/18 05:20 INR 1.09 (0.83-1.16) 02/24/18 05:20 ICD10 Worksheet Patient Problems: Problems Problem Status Onset Compression fracture of body of thoracic vertebra Acute Diarrhea Acute Lightheadedness Acute Nausea Acute Abdominal abscess Acute Abdominal pain Acute Dehydration Acute Hypochloremia Acute Intractable vomiting Acute Near syncope Acute Shortness of breath Acute Syncope Acute Volume depletion Acute
== END 2018-03-02 19:06 | disposition home or self-care (01) | DRG 981 ==
LOC: F1N 02-22 00:41 → OBSVTOIN 02-22 14:19
PROVIDERS: ADMIT Student in an Organized Health Care Education/Training Program; ATTEND Student in an Organized Health Care Education/Training Program
PROC: 0PS43ZZ Reposition Thoracic Vertebra, Percutaneous Approach (ICD-10-PCS; principal; 2018-02-24 09:52)
PROC: 0PU43JZ Supplement Thoracic Vertebra with Synthetic Substitute, Percutaneous Approach (ICD-10-PCS; principal; 2018-02-24 09:52)
DX: E86.0 Dehydration (principal); E43 Unspecified severe protein-calorie malnutrition; F11.20 Opioid dependence, uncomplicated; E27.40 Unspecified adrenocortical insufficiency; M48.54XA Collapsed vertebra, not elsewhere classified, thoracic region, initial encounter for fracture; G40.909 Epilepsy, unspecified, not intractable, without status epilepticus; Z93.2 Ileostomy status; G89.4 Chronic pain syndrome; F41.8 Other specified anxiety disorders; M81.8 Other osteoporosis without current pathological fracture
CPT/HCPCS: 82607-90; 82784-90; 82941-90; 83497-90; 84586-90; 96374; J0690; J0834; J1100; J1170; J1630; J2060; J2250; J2354; J2370; J2405; J2550; J2704; J3010; Q9967

== ENCOUNTER 2018-03-10 19:35 | Inpatient (IN) | payer BC, MEDICAID ==
[2018-03-10] MEDS ORDERED: NS 1,000 ML IV ONE (19:55)
--- NOTE | 2018-03-10 20:01 | EDPHY ---
H & P Stated Complaint: NAUSEA AND VOMITNG Time Seen by Provider: 03/10/18 19:52 HPI/ROS: CHIEF COMPLAINT: HISTORY OF PRESENT ILLNESS: 22-year-old female with recent hospitalization at [facility] for intractable nausea and vomiting, complex GI history including intestinal dysmotility, pseudo-obstruction, total colectomy, ileostomy, gastrectomy with Chandler-en-Y gastrojejunostomy, median arcuate ligament syndrome release, in the ER complaining of 2 days of intractable vomiting. Has been unable to tolerate any oral intake including her pills. Mild amount of abdominal pain and cramping. No fever no chills. Decreased ileostomy output. PRIMARY CARE PROVIDER: REVIEW OF SYSTEMS: 10 systems reviewed and negative with the exception of the elements mentioned in the history of present illness PAST MEDICAL & SURGICAL HISTORY: intestinal dysmotility, pseudo-obstruction, total colectomy, ileostomy, gastrectomy with Chandler-en-Y gastrojejunostomy, median arcuate ligament syndrome releas SOCIAL HISTORY:Nonsmoker PHYSICAL EXAM (Prior to examination, patient consented to physical exam, hands were washed and my usual and customary physical exam procedures followed) 1) GENERAL: Well-developed, well-nourished, alert and oriented. Appears uncomfortable. 2) HEAD: Normocephalic, atraumatic 3) HEENT: Pupils equal, round, reactive to light bilaterally. Sclera anicteric. Nasopharynx, oropharynx, clear, no lesions. Dry mucous membranes. 4) NECK: Full range of motion, no meningeal signs. 5) LUNGS: Clear auscultation bilaterally, no wheezes, no rhonchi, no retractions. 6) HEART: Regular rate and rhythm, no murmur, no heave, no gallop. 7) ABDOMEN: No guarding, no rebound, no focal tenderness, negative McBurney's, negative Zambrano's, negative Rovsing's, negative peritoneal sign, 8) MUSCULOSKELETAL: Moving all extremities, no focal areas of tenderness, no obvious trauma. No peripheral edema or discoloration. 9) BACK: No CVA tenderness, no midline vertebral tenderness, no fluctuance, no step-off, no obvious trauma, no visual or palpable abnormality. 10) SKIN: No rash, no petechiae. 11) Psychiatric: Patient is oriented X 3, there is no agitation. DIFFERENTIAL DIAGNOSIS: In no particular order including but not limited to bowel obstruction, intractable nausea vomiting, volume depletion - Personal History LMP (Females 10-55): Unknown Current Tetanus/Diphtheria Vaccine: Yes Current Tetanus Diphtheria and Acellular Pertussis (TDAP): Yes Tetanus Vaccine Date: 2011 - Medical/Surgical History Hx Asthma: No Hx Chronic Respiratory Disease: No Hx Diabetes: No Hx Cardiac Disease: No Hx Renal Disease: No Hx Cirrhosis: No Hx Alcoholism: No Hx HIV/AIDS: No Hx Splenectomy or Spleen Trauma: No Other PMH: large intestine removed, [facility] 09/07 contINent illiostomy, intestinal pseudo obstruction, j tube placed- REMOVED, g tube placed- REMOVED, gastroparesis, epilepsy--. T3-12 FX , KYPHOPLASTY X2 2018, gastrectomy. ? ADRENAL INSUFF, OSTEOPOROSIS - Social History Smoking Status: Never smoked Constitutional: Initial Vital Signs Temperature (C) 36.7 C 03/10/18 19:37 Heart Rate 91 03/10/18 19:37 Respiratory Rate 16 03/10/18 19:37 Blood Pressure 110/68 03/10/18 19:37 O2 Sat (%) 95 03/10/18 19:37 O2 Delivery Mode Room Air Allergies/Adverse Reactions: milk Allergy (Verified 03/10/18 19:39) mustard Allergy (Verified 03/10/18 19:39) Home Medications: Medication Instructions Recorded Multivitamins [Multivitamin (*)] 1 each PO DAILY 01/08/18 Cholecalciferol Vit D3 [Vitamin D3 1,000 units PO DAILY 01/20/18 (*)] Dicyclomine [Bentyl 10 MG (*)] 10 mg PO QID PRN #120 cap 01/25/18 busPIRone [Buspar (*)] 5 mg PO TID #90 tab 01/25/18 Glutamine [Glutasolve Resource] 1 each PO TID #100 pkt 02/10/18 Lipase 12,000/Amylase/Protease 1 cap PO TIDMEAL #100 cap 02/10/18 [Creon 12 (*)] Ns [NS IV 1000ml (*)] 1,000 ml IV DAILY bag 02/10/18 Codeine Sulf [Codeine 30 mg (*)] 60 mg PO Q6H PRN #40 tab 03/01/18 LORazepam [Ativan] 1 mg PO DAILY PRN #7 tablet 03/01/18 Promethazine HCl [Phenergan 25mg 25 mg PO Q6HRS PRN #30 tab 03/01/18 (*)] lamoTRIgine [LamICTAL] 50 mg PO BID 03/10/18 oxyCODONE ORAL SOLUTION 20 mg PO Q4H PRN 03/10/18 [Roxicodone Intensol] Medical Decision Making ED Course/Re-evaluation: 8:01 p.m.: I reviewed the patient's old medical records including her recent hospitalization for few days ago. Will obtain laboratory studies, administer IV fluids. Plan on more than likely hospital readmission. Care of patient under supervision of secondary supervising physician Dr Alfonzo Gunn with whom I discussed case. Patient specifically requests Phenergan. Offered Haldol, ketamine which patient declines. 9:10 p.m.: Re-evaluation. Patient complains of continued nausea. She does not feel she can be discharged home. I consulted with hospitalist Dr. Richardson - Data Points Laboratory Results: Laboratory Results 03/10/18 20:21 03/10/18 20:21 03/10/18 03/10/18 03/10/18 20:21 20:21 20:21 WBC 5.10 10^3/uL 10^3/uL (3.80-9.50) RBC 4.03 10^6/uL L 10^6/uL (4.18-5.33) Hgb 12.3 g/dL L g/dL (12.6-16.3) Hct 36.6 % L % (38.0-47.0) MCV 90.8 fL fL (81.5-99.8) MCH 30.5 pg pg (27.9-34.1) MCHC 33.6 g/dL g/dL (32.4-36.7) RDW 12.5 % % (11.5-15.2) Plt Count 338 10^3/uL 10^3/uL (150-400) MPV 8.7 fL fL (8.7-11.7) Neut % (Auto) 51.5 % % (39.3-74.2) Lymph % (Auto) 39.2 % % (15.0-45.0) [place] % (Auto) 7.3 % % (4.5-13.0) Eos % (Auto) 1.4 % % (0.6-7.6) Baso % (Auto) 0.4 % % (0.3-1.7) Nucleat RBC Rel Count 0.0 % % (0.0-0.2) Absolute Neuts (auto) 2.63 10^3/uL 10^3/uL (1.70-6.50) Absolute Lymphs (auto) 2.00 10^3/uL 10^3/uL (1.00-3.00) Absolute Monos (auto) 0.37 10^3/uL 10^3/uL (0.30-0.80) Absolute Eos (auto) 0.07 10^3/uL 10^3/uL (0.03-0.40) Absolute Basos (auto) 0.02 10^3/uL 10^3/uL (0.02-0.10) Absolute Nucleated RBC 0.00 10^3/uL 10^3/uL (0-0.01) Immature Gran % 0.2 % % (0.0-1.1) Immature Gran # 0.01 10^3/uL 10^3/uL (0.00-0.10) Sodium 138 mEq/L mEq/L (135-145) Potassium 4.3 mEq/L mEq/L (3.5-5.2) Chloride 106 mEq/L mEq/L (97-110) Carbon Dioxide 25 mEq/l mEq/l (22-31) Anion Gap 7 mEq/L mEq/L (6-14) BUN 4 mg/dL L mg/dL (7-23) Creatinine 0.5 mg/dL L mg/dL (0.6-1.0) Estimated GFR > 60 Glucose 85 mg/dL mg/dL (70-100) Calcium 8.9 mg/dL mg/dL (8.5-10.4) Total Bilirubin 0.1 mg/dL mg/dL (0.1-1.4) Conjugated Bilirubin 0.1 mg/dL mg/dL (0.0-0.5) Unconjugated Bilirubin 0.0 mg/dL mg/dL (0.0-1.1) AST 19 IU/L IU/L (14-46) ALT 18 IU/L IU/L (9-52) Alkaline Phosphatase 105 IU/L IU/L (38-126) Total Protein 6.0 g/dL L g/dL (6.3-8.2) Albumin 3.5 g/dL g/dL (3.5-5.0) Lipase 38 IU/L IU/L (23-300) Beta HCG, Qual NEGATIVE Medications Given: Discontinued Medications Sodium Chloride (Ns) 1,000 mls @ 0 mls/hr IV EDNOW ONE; Wide Open PRN Reason: Protocol Stop: 03/10/18 19:56 Last Admin: 03/10/18 20:19 Dose: 1,000 mls Promethazine HCl (Phenergan) 25 mg IVP ONCE ONE Stop: 03/10/18 20:11 Last Admin: 03/10/18 20:20 Dose: 25 mg Departure - Departure Disposition: [facility] Inpatient Acute Clinical Impression: Volume depletion, Intractable nausea and vomiting Condition: Good Referrals: Umu Hill DO [Primary Care Provider] - As per Instructions
[2018-03-10] MEDS ORDERED: PROMETHAZINE HCL 25 MG/ML INJ ONE (20:09)
[2018-03-10] MEDS ORDERED: PROMETHAZINE HCL 25 MG/ML INJ IVP ONE (20:10)
[2018-03-10 20:38] LABS: PLATELET COUNT 338 10^3/uL (150-400)
[2018-03-10] MEDS ORDERED: HYDROmorphONE/DILAUDID 1 MG/ML INJ IVP ONE (21:54)
[2018-03-10] MEDS ORDERED: HYDROmorphONE/DILAUDID 1 MG/ML INJ ONE (21:55)
[2018-03-10] MEDS ORDERED: PROMETHAZINE HCL 25 MG/ML INJ IVP PRN (22:14)
[2018-03-10] MEDS ORDERED: ACETAMINOPHEN 325 MG TAB PO PRN (22:14)
[2018-03-10] MEDS ORDERED: ONDANSETRON DISINTEGRATING 4 MG TAB PO PRN (22:14)
--- NOTE | 2018-03-10 22:52 | PDGENHP ---
History and Physical - Chief Complaint Nausea, vomiting - History of Present Illness 22 y/o female with a complicated gastrointestinal history of dysmotility/pseudo- obstruction s/p total colectomy with continent ileostomy placement, gastrectomy with Chandler-en-Y gastrojejunostomy, median arcuate ligament syndrome s/p release, kyphoplasty and numerous hospitalizations for dehydration and electrolyte disturbances presents with nausea and vomiting. The patient was discharged on after hospitalization for ongoing issues with high ostomy output. She did fairly well after discharge (now with 1 liter NS BID at home via PICC) for a few days. She resumed PO intake at that time. Over the last 2 days, however, she has had intractable nausea and vomiting. Her last vomiting was at 6 PM today when she last tried to eat or drink. This has also been coupled with a cessation of ostomy output, which is clearly different from last presentation. At the time of my evaluation she is fairly comfortable after medication. Her VS are stable, laboratory work-up within normal limits, and abdomen soft. She is being admitted for observation. Case discussed with ED physician Dr. Gunn; records reviewed and summarized above. History Information - Allergies/Home Medication List Allergies/Adverse Reactions: milk Allergy (Verified 03/10/18 19:39) mustard Allergy (Verified 03/10/18 19:39) Home Medications: Multivitamins [Multivitamin (*)] 1 each PO DAILY 01/08/18 [Last Taken 03/07/18] Cholecalciferol Vit D3 [Vitamin D3 (*)] 1,000 units PO DAILY 01/20/18 [Last Taken 03/07/18] lamoTRIgine [LamICTAL] 50 mg PO BID 03/10/18 [Last Taken 03/07/18] oxyCODONE ORAL SOLUTION [Roxicodone Intensol] 20 mg PO Q4H PRN 03/10/18 [Last Taken Unknown] I have personally reviewed and updated: family history, medical history Past Medical History: See HPI - Past Medical History Additional medical history: Intestinal pseudoobstruction s/p colectomy and gastrectomy, SMA syndrome, median arcuate ligement syndrome, gastroparesis, vertebral compression fractures, seizure disorder - Surgical History Additional surgical history: total colectomy with continent ileostomy formation , gastrectomy with Chandler-en-Y gastrojejunostomy, median arcuate ligament release , SMA syndrome release, G and J tubes which are now removed - Family History Additional family history: VTE - Social History Smoking Status: Never smoked Additional social history: Lives with el and 2 other roommates, 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 Review of Systems Review of Systems: ROS: 10pt was reviewed & negative except for what was stated in HPI & below Physical Exam Physical Exam: Temp Pulse Resp BP Pulse Ox 36.7 C 72 16 109/78 98 03/10/18 19:37 03/10/18 22:30 03/10/18 22:30 03/10/18 22:30 03/10/18 22:30 Constitutional: chronically ill appearing, uncomfortable Eyes: PERRL, EOMI Ears, Nose, Mouth, Throat: moist mucous membranes, no oral mucosal ulcers Cardiovascular: regular rate and rhythym, no murmur, rub, or gallop Respiratory: no respiratory distress, clear to auscultation Gastrointestinal: tenderness (RUQ), No guarding, No rebound, No distension Skin: warm, normal color, other (RUE PICC w/o signs of infection) Musculoskeletal: full muscle strength, no muscle tenderness Neurologic: AAOx3, CN II-XII Intact Psychiatric: interacting appropriately, not anxious Lab Data & Imaging Review 03/10/18 20:21 03/10/18 20:21 WBC 5.10 10^3/uL (3.80-9.50) 03/10/18 20:21 RBC 4.03 10^6/uL (4.18-5.33) L 03/10/18 20:21 Hgb 12.3 g/dL (12.6-16.3) L 03/10/18 20:21 Hct 36.6 % (38.0-47.0) L 03/10/18 20:21 MCV 90.8 fL (81.5-99.8) 03/10/18 20:21 MCH 30.5 pg (27.9-34.1) 03/10/18 20:21 MCHC 33.6 g/dL (32.4-36.7) 03/10/18 20:21 RDW 12.5 % (11.5-15.2) 03/10/18 20:21 Plt Count 338 10^3/uL (150-400) 03/10/18 20:21 MPV 8.7 fL (8.7-11.7) 03/10/18 20:21 Neut % (Auto) 51.5 % (39.3-74.2) 03/10/18 20:21 Lymph % (Auto) 39.2 % (15.0-45.0) 03/10/18 20:21 [place] % (Auto) 7.3 % (4.5-13.0) 03/10/18 20:21 Eos % (Auto) 1.4 % (0.6-7.6) 03/10/18 20:21 Baso % (Auto) 0.4 % (0.3-1.7) 03/10/18 20:21 Nucleat RBC Rel Count 0.0 % (0.0-0.2) 03/10/18 20:21 Absolute Neuts (auto) 2.63 10^3/uL (1.70-6.50) 03/10/18 20:21 Absolute Lymphs (auto) 2.00 10^3/uL (1.00-3.00) 03/10/18 20:21 Absolute Monos (auto) 0.37 10^3/uL (0.30-0.80) 03/10/18 20:21 Absolute Eos (auto) 0.07 10^3/uL (0.03-0.40) 03/10/18 20:21 Absolute Basos (auto) 0.02 10^3/uL (0.02-0.10) 03/10/18 20:21 Absolute Nucleated RBC 0.00 10^3/uL (0-0.01) 03/10/18 20:21 Immature Gran % 0.2 % (0.0-1.1) 03/10/18 20:21 Immature Gran # 0.01 10^3/uL (0.00-0.10) 03/10/18 20:21 Sodium 138 mEq/L (135-145) 03/10/18 20:21 Potassium 4.3 mEq/L (3.5-5.2) 03/10/18 20:21 Chloride 106 mEq/L (97-110) 03/10/18 20:21 Carbon Dioxide 25 mEq/l (22-31) 03/10/18 20:21 Anion Gap 7 mEq/L (6-14) 03/10/18 20:21 BUN 4 mg/dL (7-23) L 03/10/18 20:21 Creatinine 0.5 mg/dL (0.6-1.0) L 03/10/18 20:21 Estimated GFR > 60 03/10/18 20:21 Glucose 85 mg/dL (70-100) 03/10/18 20:21 Calcium 8.9 mg/dL (8.5-10.4) 03/10/18 20:21 Total Bilirubin 0.1 mg/dL (0.1-1.4) 03/10/18 20:21 Conjugated Bilirubin 0.1 mg/dL (0.0-0.5) 03/10/18 20:21 Unconjugated Bilirubin 0.0 mg/dL (0.0-1.1) 03/10/18 20:21 AST 19 IU/L (14-46) 03/10/18 20:21 ALT 18 IU/L (9-52) 03/10/18 20:21 Alkaline Phosphatase 105 IU/L (38-126) 03/10/18 20:21 Total Protein 6.0 g/dL (6.3-8.2) L 03/10/18 20:21 Albumin 3.5 g/dL (3.5-5.0) 03/10/18 20:21 Lipase 38 IU/L (23-300) 03/10/18 20:21 Beta HCG, Qual NEGATIVE 03/10/18 20:21 Assessment & Plan Assessment: 22 y/o female with a complicated gastrointestinal history of dysmotility/pseudo- obstruction s/p total colectomy with continent ileostomy placement, gastrectomy with Chandler-en-Y gastrojejunostomy, median arcuate ligament syndrome s/p release, kyphoplasty and numerous hospitalizations for dehydration and electrolyte disturbances presents with nausea, vomiting, and decreased ostomy output. Plan: 1. Nausea, vomiting - Intractable for 2 days with almost total cessation of ostomy output. Constellation of symptoms is concerning for possible bowel obstruction. However, noting normal VS, laboratory work-up, and reassuring abdominal exam I think it is reasonable to treat conservatively for now without imaging studies noting clinical stability and history of very high radiation exposure. - Admit for observation - mIVF, clear liquids, ADAT - Anti-emetics PRN - Abdominal imaging for further evaluation if worsening or not improving with conservative measures 2. Hx rapid bowel transit - This has been the reason for several recent admissions. An extensive work-up has largely been negative including normal cosyntropin stimulation test during most recent admission. She has been receiving 1 L NS BID at home via PICC line, which she felt was helpful. - Now with absent output as above - Continue glutamine, pancreatic enzymes 3. Thoracic compression fractures, osteoporosis - Possibly obtained during previous seizure event. She controls pain with oxycodone at home. S/p T10 kyphoplasty during most recent admission. - Continue home pain medications - Continue Vit D, outpatient endocrinology consult ordered at last discharge 4. Intestinal dysmotility - S/p a host of surgical interventions including total colectomy and gastrectomy. 5. SMA syndrome, median arcuate ligament syndrome: S/p surgical release with Dr Yao 6. Seizure disorder - Continue home meds, no recent seizures reported. 7. Severe protein calorie malnutrition - Long standing issue for this patient 8. Anxiety - Now on buspirone, will continue Diet - Clears, ADAT Code - Full Ppx - Low risk, ambulate TID Dispo - Admit under observation status
[2018-03-10] MEDS: NS 1,000 ML IV SCH (23:16)
[2018-03-11] MEDS: PROMETHAZINE HCL 25 MG/ML INJ IVP PRN ×4 (00:11→19:52)
[2018-03-11] MEDS: HYDROmorphONE/DILAUDID 1 MG/ML INJ IVP PRN ×5 (00:12→21:54)
[2018-03-11] MEDS: LORazepam 2 MG/ML INJ IVP PRN ×2 (00:21→17:17)
[2018-03-11] MEDS: oxyCODONE ORAL SOLUTION 10 MG/0.5 ML UDSYR PO PRN ×4 (03:21→22:38)
[2018-03-11 06:42] LABS: PLATELET COUNT 279 10^3/uL (150-400)
[2018-03-11] MEDS: lamoTRIgine 25 MG TAB PO SCH ×2 (10:44→21:46)
[2018-03-11] MEDS: busPIRone 5 MG TAB PO SCH ×3 (10:44→21:46)
[2018-03-11] MEDS: MULTIVITAMINS 1 EACH TAB PO SCH (10:44)
[2018-03-11] MEDS: CHOLECALCIFEROL VIT D3 1,000 UNITS TAB PO SCH (10:44)
[2018-03-11] MEDS: LIPASE 12,000/AMYLASE/PROTEASE (CREON) 1 CAP PO SCH ×3 (10:44→16:58)
[2018-03-11] MEDS: NS 1,000 ML IV SCH (10:44)
[2018-03-11] MEDS: GLUTAMINE (GLUTASOLVE) 1 EACH PKT PO SCH ×3 (10:48→21:45)
[2018-03-11] MEDS: ONDANSETRON 4 MG/2 ML VIAL IVP PRN (10:55)
--- NOTE | 2018-03-11 14:42 | ASMTCMCOM ---
CM Note CM Note Notes: Patient plan of care reviewed in rounds. She is well known to this hospital staff and discharged 8 days ago to home with [facility]. Per Dr. Clements contact Mickie Brar, Dr. Clements feels he can no longer provide the level of care she needs. Per Mickie, the patient has not followed up with dietary plan nor psychiatry as scheduled. She did not show up for endocrinology appointment with Dr. Calderon. Readmitted via ED with same complaints of GI distress but was previously worked up eight days prior. CM to follow. Plan: TBD Date Signed: 03/11/2018 02:41 PM Electronically Signed By:Yasmine Ferguson RN
--- NOTE | 2018-03-11 16:36 | HOSPPROG ---
Hospitalist Progress Note Assessment/Plan: 22 y/o female with a complicated gastrointestinal history of dysmotility/pseudo- obstruction s/p total colectomy with continent ileostomy placement, gastrectomy with Chandler-en-Y gastrojejunostomy, median arcuate ligament syndrome s/p release, kyphoplasty and numerous hospitalizations for dehydration and electrolyte disturbances presents with nausea, vomiting, and decreased ostomy output. 1. Nausea, vomiting - Intractable for 2 days with almost total cessation of ostomy output. Constellation of symptoms is concerning for possible bowel obstruction. However, noting normal VS, laboratory work-up, and reassuring abdominal exam I think it is reasonable to treat conservatively for now without imaging studies noting clinical stability and history of very high radiation exposure. -cont IVF -ADAT - Anti-emetics PRN - hold off on imaging 2. Hx rapid bowel transit - This has been the reason for several recent admissions. An extensive work-up has largely been negative including normal cosyntropin stimulation test during most recent admission. She has been receiving 1 L NS BID at home via PICC line, which she felt was helpful. - Now with absent output as above - Continue glutamine, pancreatic enzymes 3. Thoracic compression fractures, osteoporosis - Possibly obtained during previous seizure event. She controls pain with oxycodone at home. S/p T10 kyphoplasty during most recent admission. - Continue home pain medications - Continue Vit D, outpatient endocrinology consult ordered at last discharge 4. Intestinal dysmotility - S/p a host of surgical interventions including total colectomy and gastrectomy. 5. SMA syndrome, median arcuate ligament syndrome: S/p surgical release with Dr Yao 6. Seizure disorder - Continue home meds, no recent seizures reported. 7. Severe protein calorie malnutrition - Long standing issue for this patient 8. Anxiety - Now on buspirone, will continue Diet - Regular Code - Full Ppx - Low risk, ambulate TID Dispo - still symptomatic. Change to inpatient. cont IVF. cont antiemetics. Subjective: nausea is improving. Dehydration is improving. Still with no output. Abd pain/discomfort is better. Objective: Vital Signs Temp Pulse Resp BP Pulse Ox 36.6 C 91 13 103/71 94 03/11/18 15:42 03/11/18 15:42 03/11/18 15:42 03/11/18 15:42 03/11/18 15:42 Laboratory Results 03/11/18 05:00 03/11/18 05:00 03/10/18 03/11/18 03/12/18 05:59 05:59 05:59 Intake Total 200 623 Balance 200 623 - Physical Exam Constitutional: no apparent distress Eyes: PERRL Ears, Nose, Mouth, Throat: moist mucous membranes, hearing normal Cardiovascular: regular rate and rhythym Respiratory: no respiratory distress, no rales or rhonchi, clear to auscultation Gastrointestinal: normoactive bowel sounds Skin: warm Neurologic: AAOx3 Psychiatric: interacting appropriately, not anxious, not encephalopathic Lymph, Heme, Immunologic: No petechiae ICD10 Worksheet Patient Problems: Problems Problem Status Onset Intractable nausea and vomiting Acute Volume depletion Acute Abdominal abscess Acute Abdominal pain Acute Compression fracture of body of thoracic vertebra Acute Dehydration Acute Diarrhea Acute Hypochloremia Acute Intractable vomiting Acute Lightheadedness Acute Nausea Acute Near syncope Acute Shortness of breath Acute Syncope Acute
--- NOTE | 2018-03-11 17:24 | PDMN ---
Medical Necessity Medical necessity: Change to inpt as of 03/11/18 @ 1633. Pt meets inpt criteria per MD order and MCG M-370, Vomiting. 22 y/o w/complicated GI hx including recent admissions for rapid bowel transit, admitted w/intractable nausea/ vomiting w/almost total cessation of ostomy output and abd pain concerning for poss bowel obstruction. Upgraded to inpt today for persistent N/V requiring IV antiemetics, peersistent abd pain requiring IV Dilaudid. Est LOS>2MN for ongoing eval/management of above.
[2018-03-12] MEDS: HYDROmorphONE/DILAUDID 1 MG/ML INJ IVP PRN ×5 (02:09→23:03)
[2018-03-12] MEDS: PROMETHAZINE HCL 25 MG/ML INJ IVP PRN ×3 (02:09→19:04)
[2018-03-12] MEDS: NS 1,000 ML IV SCH ×2 (08:12→19:05)
[2018-03-12] MEDS: busPIRone 5 MG TAB PO SCH ×5 (12:41→22:44)
[2018-03-12] MEDS: lamoTRIgine 25 MG TAB PO SCH ×4 (12:41→22:44)
[2018-03-12] MEDS: LIPASE 12,000/AMYLASE/PROTEASE (CREON) 1 CAP PO SCH ×4 (12:43→17:04)
[2018-03-12] MEDS: MULTIVITAMINS 1 EACH TAB PO SCH ×2 (12:43→13:40)
[2018-03-12] MEDS: CHOLECALCIFEROL VIT D3 1,000 UNITS TAB PO SCH (12:43)
[2018-03-12] MEDS: GLUTAMINE (GLUTASOLVE) 1 EACH PKT PO SCH ×3 (12:44→22:44)
--- NOTE | 2018-03-12 13:47 | ASMTCMCOM ---
CM Note CM Note Notes: Plan of care reviewed in rounds. Patient current with [facility] and [facility]. Referrals via allscripts. Patient reports to MD she is feeling better. CM to follow for needs. Plan: Home with [facility] and infusions sevices as above. Date Signed: 03/12/2018 01:46 PM Electronically Signed By:Yasmine Ferguson RN
--- NOTE | 2018-03-12 14:22 | HOSPPROG ---
Hospitalist Progress Note Assessment/Plan: 22 y/o female with a complicated gastrointestinal history of dysmotility/pseudo- obstruction s/p total colectomy with continent ileostomy placement, gastrectomy with Chandler-en-Y gastrojejunostomy, median arcuate ligament syndrome s/p release, kyphoplasty and numerous hospitalizations for dehydration and electrolyte disturbances presents with nausea, vomiting, and decreased ostomy output. 1. Nausea, vomiting - Intractable for 2 days with almost total cessation of ostomy output. -no e/o obstruction -cont IVF -ADAT - Anti-emetics PRN - hold off on imaging 2. Hx rapid bowel transit - This has been the reason for several recent admissions. An extensive work-up has largely been negative including normal cosyntropin stimulation test during most recent admission. She has been receiving 1 L NS BID at home via PICC line, which she felt was helpful. - Now with absent output as above - Continue glutamine, pancreatic enzymes 3. Thoracic compression fractures, osteoporosis - Possibly obtained during previous seizure event. She controls pain with oxycodone at home. S/p T10 kyphoplasty during most recent admission. - Continue home pain medications - Continue Vit D, outpatient endocrinology consult ordered at last discharge 4. Intestinal dysmotility - S/p a host of surgical interventions including total colectomy and gastrectomy. 5. SMA syndrome, median arcuate ligament syndrome: S/p surgical release with Dr Yao 6. Seizure disorder - Continue home meds, no recent seizures reported. 7. Severe protein calorie malnutrition - Long standing issue for this patient 8. Anxiety - Now on buspirone, will continue Diet - Regular Code - Full Ppx - Low risk, ambulate TID Plan: cont conservative mgmt pain well controlled. will decrease frequency of IV Dilaudid. Will decreased frequency of Benzo's Subjective: no cp or sob. no abd pain. still with intermittent nausea. afebrile. Objective: Vital Signs Temp Pulse Resp BP Pulse Ox 36.8 C 84 15 99/65 L 95 03/11/18 19:41 03/12/18 08:17 03/12/18 08:17 03/12/18 08:17 03/12/18 08:17 03/11/18 03/12/18 03/13/18 05:59 05:59 05:59 Intake Total 2250 Balance 2250 - Physical Exam Constitutional: not in pain, chronically ill appearing Eyes: EOMI Ears, Nose, Mouth, Throat: moist mucous membranes, hearing normal Cardiovascular: regular rate and rhythym Respiratory: no respiratory distress, no rales or rhonchi Gastrointestinal: normoactive bowel sounds, No rebound, No distension Skin: warm Neurologic: AAOx3 Psychiatric: interacting appropriately, not anxious, not encephalopathic Lymph, Heme, Immunologic: No petechiae ICD10 Worksheet Patient Problems: Problems Problem Status Onset Intractable nausea and vomiting Acute Volume depletion Acute Abdominal abscess Acute Abdominal pain Acute Compression fracture of body of thoracic vertebra Acute Dehydration Acute Diarrhea Acute Hypochloremia Acute Intractable vomiting Acute Lightheadedness Acute Nausea Acute Near syncope Acute Shortness of breath Acute Syncope Acute
[2018-03-12] MEDS: LORazepam 2 MG/ML INJ IVP PRN ×2 (14:33→22:44)
[2018-03-12] MEDS: oxyCODONE ORAL SOLUTION 10 MG/0.5 ML UDSYR PO PRN ×2 (14:33→19:04)
[2018-03-12] MEDS: ONDANSETRON 4 MG/2 ML VIAL IVP PRN (17:04)
[2018-03-13] MEDS: oxyCODONE ORAL SOLUTION 10 MG/0.5 ML UDSYR PO PRN ×4 (00:51→19:59)
[2018-03-13] MEDS: PROMETHAZINE HCL 25 MG/ML INJ IVP PRN ×3 (01:04→17:31)
[2018-03-13] MEDS: HYDROmorphONE/DILAUDID 1 MG/ML INJ IVP PRN ×3 (05:05→19:48)
[2018-03-13] MEDS: MULTIVITAMINS 1 EACH TAB PO SCH (10:36)
[2018-03-13] MEDS: busPIRone 5 MG TAB PO SCH ×3 (10:36→21:47)
[2018-03-13] MEDS: LIPASE 12,000/AMYLASE/PROTEASE (CREON) 1 CAP PO SCH ×4 (10:36→17:31)
[2018-03-13] MEDS: GLUTAMINE (GLUTASOLVE) 1 EACH PKT PO SCH ×4 (10:37→21:46)
[2018-03-13] MEDS: lamoTRIgine 25 MG TAB PO SCH ×2 (10:37→19:49)
[2018-03-13] MEDS: CHOLECALCIFEROL VIT D3 1,000 UNITS TAB PO SCH (10:38)
[2018-03-13] MEDS: NS 1,000 ML IV SCH (13:43)
[2018-03-13] MEDS: LORazepam 2 MG/ML INJ IVP PRN ×2 (13:45→21:46)
[2018-03-13] MEDS ORDERED: PROMETHAZINE HCL 25 MG/ML INJ IVP PRN (14:31)
[2018-03-13] MEDS ORDERED: HYDROmorphONE/DILAUDID 1 MG/ML INJ IVP PRN (14:31)
--- NOTE | 2018-03-13 14:35 | HOSPPROG ---
Hospitalist Progress Note Assessment/Plan: 22 y/o female with a complicated gastrointestinal history of dysmotility/pseudo- obstruction s/p total colectomy with continent ileostomy placement, gastrectomy with Chandler-en-Y gastrojejunostomy, median arcuate ligament syndrome s/p release, kyphoplasty and numerous hospitalizations for dehydration and electrolyte disturbances presents with nausea, vomiting, and decreased ostomy output. 1. Nausea, vomiting - Intractable for 2 days with almost total cessation of ostomy output. -no e/o obstruction -cont IVF -Regular diet - Anti-emetics PRN 2. Hx rapid bowel transit - This has been the reason for several recent admissions. An extensive work-up has largely been negative including normal cosyntropin stimulation test during most recent admission. She has been receiving 1 L NS BID at home via PICC line, which she felt was helpful. - Now with minimal output - Continue glutamine, pancreatic enzymes 3. Thoracic compression fractures, osteoporosis - Possibly obtained during previous seizure event. She controls pain with oxycodone at home. S/p T10 kyphoplasty during most recent admission. - Continue home pain medications - Continue Vit D, outpatient endocrinology consult ordered at last discharge 4. Intestinal dysmotility - S/p a host of surgical interventions including total colectomy and gastrectomy. 5. SMA syndrome, median arcuate ligament syndrome: S/p surgical release with Dr Yao 6. Seizure disorder - Continue home meds, no recent seizures reported. 7. Severe protein calorie malnutrition - Long standing issue for this patient 8. Anxiety - Now on buspirone, will continue Diet - Regular Code - Full Ppx - Low risk, ambulate TID Plan: cont IVF Start IV Reglan Decrease Phenergan PRN Decrease Dilaudid IV PRN Decrease Ativan IV PRN check KUB Subjective: reports some nausea last night. reports mild abd pain. minimal ostomy output. no current emesis. Objective: Vital Signs Temp Pulse Resp BP Pulse Ox 37.6 C 75 16 106/73 99 03/13/18 10:45 03/13/18 10:45 03/13/18 10:45 03/13/18 10:45 03/13/18 10:45 03/12/18 03/13/18 03/14/18 05:59 05:59 05:59 Intake Total 0 1985 Balance 2251985 - Physical Exam Constitutional: no apparent distress Eyes: PERRL Ears, Nose, Mouth, Throat: moist mucous membranes, hearing normal Cardiovascular: regular rate and rhythym Respiratory: no respiratory distress Gastrointestinal: normoactive bowel sounds, No distension Skin: warm Neurologic: AAOx3 Lymph, Heme, Immunologic: No petechiae ICD10 Worksheet Patient Problems: Problems Problem Status Onset Intractable nausea and vomiting Acute Volume depletion Acute Abdominal abscess Acute Abdominal pain Acute Compression fracture of body of thoracic vertebra Acute Dehydration Acute Diarrhea Acute Hypochloremia Acute Intractable vomiting Acute Lightheadedness Acute Nausea Acute Near syncope Acute Shortness of breath Acute Syncope Acute
--- NOTE | 2018-03-13 15:16 | ASMTCMCOM ---
CM Note CM Note Notes: Patient plan of care reviewed in rounds. She reports to the physician that she is feeling better and does not need ativan as frequently, she still has low output per ostomy and is to start Reglan. Referrals in allscripts to [facility]. Anticipate dc to home with resumption of prior services when medically ready for discharge. Plan: Plan as outlined above. Date Signed: 03/13/2018 02:59 PM Electronically Signed By:Yasmine Ferguson RN
[2018-03-13] MEDS ORDERED: METOCLOPRAMIDE 10 MG/2 ML VIAL IVP SCH (16:00)
[2018-03-14] MEDS: PROMETHAZINE HCL 25 MG/ML INJ IVP PRN ×5 (00:18→23:45)
[2018-03-14] MEDS: oxyCODONE ORAL SOLUTION 10 MG/0.5 ML UDSYR PO PRN ×5 (00:18→23:46)
[2018-03-14] MEDS: HYDROmorphONE/DILAUDID 1 MG/ML INJ IVP PRN ×4 (01:59→23:47)
[2018-03-14] MEDS: NS 1,000 ML IV SCH ×3 (06:16→18:53)
[2018-03-14] MEDS: MULTIVITAMINS 1 EACH TAB PO SCH (10:27)
[2018-03-14] MEDS: LIPASE 12,000/AMYLASE/PROTEASE (CREON) 1 CAP PO SCH ×3 (10:27→17:50)
[2018-03-14] MEDS: GLUTAMINE (GLUTASOLVE) 1 EACH PKT PO SCH ×3 (10:27→23:47)
[2018-03-14] MEDS: lamoTRIgine 25 MG TAB PO SCH ×2 (10:27→19:29)
[2018-03-14] MEDS: LORazepam 2 MG/ML INJ IVP PRN ×2 (10:27→18:52)
[2018-03-14] MEDS: busPIRone 5 MG TAB PO SCH ×3 (10:27→23:47)
[2018-03-14] MEDS: CHOLECALCIFEROL VIT D3 1,000 UNITS TAB PO SCH (10:27)
--- NOTE | 2018-03-14 14:12 | HOSPPROG ---
Hospitalist Progress Note Assessment/Plan: 22 y/o female with a complicated gastrointestinal history of dysmotility/pseudo- obstruction s/p total colectomy with continent ileostomy placement, gastrectomy with Chandler-en-Y gastrojejunostomy, median arcuate ligament syndrome s/p release, kyphoplasty and numerous hospitalizations for dehydration and electrolyte disturbances admitted with nausea, vomiting, and decreased ostomy output. Initially was getting better, but over the past 2 days reports increased nausea , pain, and abd distention. 1. Nausea, vomiting - decreased ostomy output. -no e/o obstruction -cont IVF - Anti-emetics PRN 2. Hx rapid bowel transit - This has been the reason for several recent admissions. An extensive work-up has largely been negative including normal cosyntropin stimulation test during most recent admission. She has been receiving 1 L NS BID at home via PICC line, which she felt was helpful. - Now with minimal output - Continue glutamine, pancreatic enzymes 3. Thoracic compression fractures, osteoporosis - Possibly obtained during previous seizure event. She controls pain with oxycodone at home. S/p T10 kyphoplasty during most recent admission. - Continue home pain medications - Continue Vit D, outpatient endocrinology consult ordered at last discharge 4. Intestinal dysmotility - S/p a host of surgical interventions including total colectomy and gastrectomy. 5. SMA syndrome, median arcuate ligament syndrome: S/p surgical release with Dr Yao 6. Seizure disorder - Continue home meds, no recent seizures reported. 7. Severe protein calorie malnutrition - Long standing issue for this patient 8. Anxiety - Now on buspirone, will continue Code - Full Ppx - Low risk, ambulate TID Plan: Initially on admission, she was getting better, and had started to tolerate a diet. The last 2 days she has shows gradual worsening. Still with minimal ostomy output and now with distended abd, increasing pain, and nausea. no emesis. Obtain GI consult NPO cont IVF Obtain CT A/P cont all other meds w/o change Subjective: worsening abd pain. reports increased distention Objective: Vital Signs Temp Pulse Resp BP Pulse Ox 37.3 C 64 16 99/71 L 97 03/14/18 08:00 03/14/18 08:00 03/14/18 08:00 03/14/18 08:00 03/14/18 08:00 03/13/18 03/14/18 03/15/18 05:59 05:59 05:59 Intake Total 1985 3167 Output Total 300 Balance 1985 2864 - Physical Exam Constitutional: chronically ill appearing Eyes: PERRL Ears, Nose, Mouth, Throat: moist mucous membranes, hearing normal Cardiovascular: regular rate and rhythym Respiratory: no respiratory distress Gastrointestinal: tenderness (generalized), distension, No normoactive bowel sounds (hypoactive), No rebound Skin: warm Neurologic: AAOx3 Psychiatric: interacting appropriately, not anxious, not encephalopathic Lymph, Heme, Immunologic: No petechiae ICD10 Worksheet Patient Problems: Problems Problem Status Onset Intractable nausea and vomiting Acute Volume depletion Acute Abdominal abscess Acute Abdominal pain Acute Compression fracture of body of thoracic vertebra Acute Dehydration Acute Diarrhea Acute Hypochloremia Acute Intractable vomiting Acute Lightheadedness Acute Nausea Acute Near syncope Acute Shortness of breath Acute Syncope Acute
[2018-03-14] MEDS ORDERED: IOPAMIDOL (ISOVUE-300) 100 ML BTL ONE (15:44)
[2018-03-15] MEDS: oxyCODONE ORAL SOLUTION 10 MG/0.5 ML UDSYR PO PRN ×3 (04:17→20:11)
[2018-03-15] MEDS: LORazepam 2 MG/ML INJ IVP PRN ×3 (04:36→22:29)
[2018-03-15] MEDS: NS 1,000 ML IV SCH ×2 (04:43→14:13)
[2018-03-15] MEDS: PROMETHAZINE HCL 25 MG/ML INJ IVP PRN ×3 (05:36→18:10)
[2018-03-15] MEDS: HYDROmorphONE/DILAUDID 1 MG/ML INJ IVP PRN ×2 (05:58→16:44)
[2018-03-15] MEDS: GLUTAMINE (GLUTASOLVE) 1 EACH PKT PO SCH ×3 (09:26→22:28)
[2018-03-15] MEDS: MULTIVITAMINS 1 EACH TAB PO SCH (09:26)
[2018-03-15] MEDS: LIPASE 12,000/AMYLASE/PROTEASE (CREON) 1 CAP PO SCH ×2 (09:26→12:05)
[2018-03-15] MEDS: lamoTRIgine 25 MG TAB PO SCH ×2 (09:26→22:29)
[2018-03-15] MEDS: busPIRone 5 MG TAB PO SCH ×3 (09:26→22:29)
[2018-03-15] MEDS: CHOLECALCIFEROL VIT D3 1,000 UNITS TAB PO SCH (09:27)
--- NOTE | 2018-03-15 13:15 | GCON ---
GASTROENTEROLOGY INPATIENT CONSULTATION DATE OF CONSULTATION: 03/15/2018 HISTORY OF PRESENT ILLNESS: I was kindly requested to see the patient by Dr. Willams in consultation for a chief complaint of digestive symptoms. She is a 22-year-old white female who was admitted to the hospital with nausea and vomiting. She also had some decreased ostomy output, but this is better today. The above nausea and vomiting are chronic. She uses promethazine 25 mg q.i.d. orally as needed at home, which generally helps. She has tried Compazine and Zofran, including sublingual, without benefit. She does not have a rectum. 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 There is report of past intestinal dysmotility and pseudo-obstruction, and when she was at the [facility], she underwent a total colectomy with continent ileostomy. There is also a past report of gastroparesis, but a gastric emptying study earlier this year was normal. She has had surgery with Dr. Richy Yao, including for median arcuate ligament syndrome and SMA syndrome. She had a near-total gastrectomy with gastrojejunostomy. She previously had a venting G-tube and J-tube. At home, she receives 1 L of normal saline twice a day. She is on Creon, but for unclear reasons. She does not think this helps. PAST MEDICAL HISTORY: 1. As above. 2. Anxiety. 3. Seizure disorder. 4. History of vertebral compression fractures. 5. Otherwise, noncontributory. OUTPATIENT MEDICATIONS: Include the above, BuSpar, Bentyl as needed, Creon, codeine as needed, Lamictal, oxycodone as needed. INPATIENT MEDICATIONS: Include Ativan as needed, IV Phenergan as needed, oxycodone, IV fluids, Creon, BuSpar, Dilaudid as needed, Lamictal. ALLERGIES: Include milk and mustard. SOCIAL HISTORY: Nonsmoker. FAMILY HISTORY: Negative for similar nausea and vomiting. REVIEW OF SYSTEMS: Positive pertinent review of systems as per my HPI. Otherwise, a complete review of systems is negative. PHYSICAL EXAM: CONSTITUTIONAL: Nontoxic-appearing woman. VITAL SIGNS: Stable. SKIN: Warm, dry. EYES: Pupils equal, round, reactive to light and accommodation. EARS, NOSE, MOUTH, AND THROAT: Oropharynx without masses. Moist mucosa. CARDIOVASCULAR: Normal S2, normal PMI. RESPIRATORY: Lungs clear to auscultation and percussion anteriorly. GASTROINTESTINAL: Continent ileostomy in the right lower quadrant. No rebound. NEUROLOGIC: Grossly nonfocal. Cranial nerves grossly intact. PSYCHIATRIC: Orientation, insight appropriate. MUSCULOSKELETAL: Strength grossly normal throughout. Normal station. LABORATORIES: Include a hematocrit of 32.4%, which is stable. Beta hCG negative. Normal CMP. Past HIV, gastrin level negative. Past normal CRP. Past basal active intestinal polypeptide negative. Past urine for [address] scan of the abdomen pelvis without obstruction of the digestive tract. Ole stim test in the past negative. Stool PCR in the past negative. Small bowel follow-through in the recent past with rapid transit only. ASSESSMENT: Nausea, vomiting. Suspect functional in nature. PLAN: 1. She wishes to try and eat. 2. Discontinue Creon, as no clear evidence of pancreatic insufficiency, and this has not helped her. 3. Recommend no further inpatient or outpatient narcotics. 4. She wishes to be able to get IV antiemetics as needed at home, to try and prevent readmissions in the future. As per the hospitalist and her PCP. 5. Patient would probably be better served for her future care at a tertiary care center, such as [facility], rather than a community setting, due to her complicated and unusual medical history. As per the hospitalist service and her PCP. We will follow informally. Please let us know if we can be of further help in the future. /[id number]/MODL MTDD
--- NOTE | 2018-03-15 16:25 | ASMTCMCOM ---
CM Note CM Note Notes: Plan of care reviewed in rounds this am. She is still requesting pain medications as they are scheduled. She normally lives independent with HHC and infusion services. Plan: Dc with prior support services when medically ready for discharge. Date Signed: 03/15/2018 04:25 PM Electronically Signed By:Yasmine Ferguson RN
[2018-03-15] MEDS ORDERED: DICYCLOMINE 10 MG CAP PO PRN (19:53)
[2018-03-15] MEDS ORDERED: HYDROmorphONE/DILAUDID 1 MG/ML INJ IVP PRN (19:55)
--- NOTE | 2018-03-15 20:10 | HOSPPROG ---
Hospitalist Progress Note Assessment/Plan: 22 y/o female with a complicated gastrointestinal history of dysmotility/pseudo- obstruction s/p total colectomy with continent ileostomy placement, gastrectomy with Chandler-en-Y gastrojejunostomy, median arcuate ligament syndrome s/p release, kyphoplasty and numerous hospitalizations for dehydration and electrolyte disturbances admitted with nausea, vomiting, and decreased ostomy output. Initially was getting better, but on 02/11 starting having more abd pain and abd distention. She had studies which confirmed no obstruction. She was given bowel rest and ultimately did have output for her ostomy yesterday. Today her abd exam is better and she is likely nearing her baseline She continues to have a nausea and her hope is to have IV phenergan at home. She was evaluated by GI today and this was discussed. I have not discussion about this with the patient as the GI consultation note is the first time I have become aware of this. She is on IV phenergan here and overall her nausea appears to be improving. She reports that her absorption is impaired and she does not benefit from oral Zofran The etiology of her abd pain is likely multifactorial but there is a strong component of functional pain as well as narcotic induced. She has been on pain meds for a long time. Today we had a long discussion about the dangers and risks of chronic narcotic pain meds. She agreed to space out her IV Dilaudid and PO Oxy. Ultimately she would benefit from no further opiates but any decrease has been very challenging. As for disposition, she is ready for discharge as soon as tomorrow. If she is still symptomatic, would continue to wean off or stop IV Dilaudid and decreased Oxy further. She is also taking Ativan IV for nausea, although, she is likely getting a secondary gain. Frequency was decreased today. Would decrease further if able to tomorrow. If IV Phenergan at home is considered, then maybe it can be done with the agreement/contract that no narcotics are continued As for future hospitalizations, she would be better served at the [facility] given her complicated history. 1. Nausea, vomiting - decreased ostomy output. -no e/o obstruction -cont IVF - Anti-emetics PRN 2. Hx rapid bowel transit - This has been the reason for several recent admissions. An extensive work-up has largely been negative including normal cosyntropin stimulation test during most recent admission. She has been receiving 1 L NS BID at home via PICC line, which she felt was helpful. 3. Thoracic compression fractures, osteoporosis - Possibly obtained during previous seizure event. She controls pain with oxycodone at home. S/p T10 kyphoplasty during most recent admission. - Continue home pain medications - Continue Vit D, outpatient endocrinology consult ordered at last discharge 4. Intestinal dysmotility - S/p a host of surgical interventions including total colectomy and gastrectomy. 5. SMA syndrome, median arcuate ligament syndrome: S/p surgical release with Dr Yao 6. Seizure disorder - Continue home meds, no recent seizures reported. 7. Severe protein calorie malnutrition - Long standing issue for this patient 8. Anxiety - Now on buspirone, will continue 9. Eating disorder, not specified Code - Full Ppx - Low risk, ambulate TID Subjective: no abd pain. receptive to discussion about weaning pain meds Objective: Vital Signs Temp Pulse Resp BP Pulse Ox 37.0 C 98 16 99/73 L 100 03/15/18 16:00 03/15/18 16:00 03/15/18 16:00 03/15/18 16:00 03/15/18 16:00 03/14/18 03/15/18 03/16/18 05:59 05:59 05:59 Intake Total 3164 2905 1644 Output Total 258 148 9165 Balance 2864 2105 644 - Physical Exam Constitutional: no apparent distress Eyes: PERRL Ears, Nose, Mouth, Throat: moist mucous membranes, hearing normal Cardiovascular: regular rate and rhythym Respiratory: no respiratory distress, no rales or rhonchi, clear to auscultation Gastrointestinal: normoactive bowel sounds, soft, non-tender abdomen, No distension Skin: warm Neurologic: AAOx3 Psychiatric: interacting appropriately, not anxious, not encephalopathic Lymph, Heme, Immunologic: No petechiae ICD10 Worksheet Patient Problems: Problems Problem Status Onset Intractable nausea and vomiting Acute Volume depletion Acute Abdominal abscess Acute Abdominal pain Acute Compression fracture of body of thoracic vertebra Acute Dehydration Acute Diarrhea Acute Hypochloremia Acute Intractable vomiting Acute Lightheadedness Acute Nausea Acute Near syncope Acute Shortness of breath Acute Syncope Acute
[2018-03-16] MEDS: PROMETHAZINE HCL 25 MG/ML INJ IVP PRN ×3 (00:06→13:03)
[2018-03-16] MEDS: NS 1,000 ML IV SCH (00:11)
[2018-03-16] MEDS: GLUTAMINE (GLUTASOLVE) 1 EACH PKT PO SCH ×2 (08:32→17:00)
[2018-03-16] MEDS: oxyCODONE ORAL SOLUTION 10 MG/0.5 ML UDSYR PO PRN ×2 (08:35→16:21)
[2018-03-16] MEDS: lamoTRIgine 25 MG TAB PO SCH (08:38)
[2018-03-16] MEDS: MULTIVITAMINS 1 EACH TAB PO SCH (08:38)
[2018-03-16] MEDS: busPIRone 5 MG TAB PO SCH ×2 (08:39→16:22)
[2018-03-16] MEDS: CHOLECALCIFEROL VIT D3 1,000 UNITS TAB PO SCH (08:39)
[2018-03-16 08:45] VITALS: BP 110/85
[2018-03-16] MEDS: LORazepam 2 MG/ML INJ IVP PRN ×2 (10:24→14:12)
--- NOTE | 2018-03-16 16:44 | PDIAF ---
- Diagnosis Code Status: Full Code - Medication Management Discharge Medications: electronically signed and located in the Home Medication List. PICC Care - Routine: Yes - Orders Isolation Type: None Diet Recommendation: other Diet Texture: Regular Texture Diet Weigh Patient: weekly Additional Instructions: Take oral liquid oxycodone a little as possible, only if needed for severe pain. DO NOT TAKE THIS MEDICATION IV IT CAN BE FATAL, ESPECIALLY IF COMBINED WITH PHENERGAN. Counseled about the risks associated with IV phenergan -- use as little as possible, only as needed. - Follow Up Care Current Providers and Referrals: Umu Hill DO [Primary Care Provider] - 3-5 days Landen Young MD, FACG [Medical Doctor] - follow up as scheduled (GI specialist) Sarah Jacobs NP [Certified Nurse Practioner] - follow up in 1 week (Pain Management at [facility])
--- NOTE | 2018-03-16 16:50 | PDDCSUM ---
Discharge Summary Discharge Summary: Date of Admission: March 10, 2018 Date of Discharge: March 16, 2018 Discharge Diagnoses: Nausea and vomiting Mild R hydronephrosis, likely 2/2 a recently passed renal stone Intestinal dysmotility Hx of pseudo-obstruction, total colectomy with continent ileostomy placement, gastrectomy with Chandler-en-Y gastrojejunostomy, median arcuate ligament syndrome s /p release Chronic abdominal pain Thoracic compression fractures Chronic back pain 2/2 above Osteoporosis Chronic dehydration, requiring IV fluids Chronic protein-calorie malnutrition Chronic micronutrient deficiencies Seizure disorder Anxiety Admission Diagnoses: Intractable nausea and vomiting Acute dehydration History of rapid bowel transit Thoracic compression fractures Osteoporosis Intestinal dysmotility SMA syndrome, median arcuate ligament syndrome status post surgical release Seizure disorder Severe protein calorie malnutrition, chronic Anxiety Consultants: None. Hospital Course: Patient is a 22-year-old female with complicated GI history and frequent recurrent hospitalizations who presented again with intractable nausea, vomiting , and abdominal pain. This time, she has also had decreased ostomy output. She was found to be dehydrated and required IV fluid rehydration and IV antiemetics and IV Analgesics. Abd/pelv CT scan revealed mild right-sided hydronephrosis with ureteral scarring, which is likely from a recently passed renal stone and may be worked up further as an outpatient. The patient had been getting IV fluids - 1 L of normal saline twice a day - at home. She had been taught to self-administer NS via her PICC line by home healthcare, who visits her once a week. In the past patient has tried all antiemetics, none of which seem to work for her. The only antiemetic that works for her is IV Phenergan, for which she frequently comes to the hospital. She has been unable to receive IV Phenergan in the past as it is a high risk medication and not commonly prescribed to patients in the outpatient setting. The patient was counseled about the risks associated with Phenergan IV use. Her home healthcare company is able to provide IV Phenergan to the patient, along with the normal saline. Since patient has failed multiple other medications and requires frequent hospitalizations for her complicated GI problems, we have agreed to give her a trial of IV Phenergan. She agrees not to inject any other medications through her PICC line, such as the Roxicodone, as it can cause fatality. She is recommended to get close follow up from her outpatient providers within the next week. As discussed in past hospitalizations, patient needs to get established with a barrel painter, an clinical services director, and GI. Physical Exam: General: The patient is a thin female who is alert and in no acute distress. HEENT: normocephalic, extraocular movements intact, conjunctivae clear, no lesions on face. Mucous membranes moist. Neck: trachea midline, no visible masses, no external lesions. Abd: Nondistended. Neuro: cranial nerves II - XII grossly intact. Intact gross motor and sensory function. Psych: appropriate mood/affect. Skin: Pale. Condition: Fair. Discharged to: Home with home healthcare. Pertinent tests/labs/imaging: X-ray of abdomen-postsurgical changes to abdomen and have this. With mildly patulous nonspecific loop of bowel in the right lower quadrant. CT of the abdomen and pelvis with contrast: No evidence for bowel obstruction. Remaining cecum and right mid pelvis is stable in appearance with apparent anastomosis to a small bowel loop that extends toward ileostomy. Mild right sided hydronephrosis has developed with dilatation of the right ureter down to the mid pelvis where there appears to be some scarring. Low bone mineral density suspected for patient of this age. Consider correlation with DEXA scan at some point. Medications: Please see med rec form. I have reviewed the [place] TECHNICAL INFORMATION SPECIALIST. Resume home meds including IV NS 1L BID. Refilled home medications: Lamotrigine , Bentyl, vitamin-D 3, Roxicodone 20mg po QID prn severe pain for 7 days ( 560mg dispensed). New Rx: Promethazine 12.5-25mg IV q6h prn nausea. Syringes and needles to draw up medication. Special instructions: Take oral liquid oxycodone a little as possible, only if needed for severe pain. DO NOT TAKE THIS MEDICATION IV IT CAN BE FATAL, ESPECIALLY IF COMBINED WITH PHENERGAN. Counseled about the risks associated with IV phenergan -- use as little as possible, only as needed. Follow up: PCP in 3-5 days. GI specialist as planned. Pain Mgmt in 1 week. Cell Maker as planned in 2 weeks. >30 minutes of total time was spent on counseling and coordination of care for this patient's discharge.
--- NOTE | 2018-03-17 13:31 | ASMTLACE ---
LACE Length of stay for Answers: 4-6 days current admission Comorbidities - select Answers: Opioid dependence all that apply / Chronic pain Other Notes: Extensive gastrointestinal hx # of Emergency department Answers: 12+ visits in the last 6 months Score: 15 Date Signed: 03/17/2018 01:31 PM Electronically Signed By:Yasmine Ferguson RN
--- NOTE | 2018-03-19 09:17 | ASDISCHSUM ---
Discharge Information Plan Status:Home with Home Health Medically Cleared to Leave:03/16/2018 Discharge Date:03/16/2018 05:23 PM D/C Disposition:Home Health Service [facility] D[facility]C [facility] Projected Discharge Date:03/13/2018 11:00 AM Transportation at D/C: Discharge Delay Reason: Follow-Up Date:03/13/2018 11:00 AM Discharge Slot: Final Diagnosis: Placement Information Referral Type:Home Infusion Referral ID:[id number] Provider Name:[facility] Address 1:[address] [facility] [address] 2: City:[place] Selection Factors: State:[place] Referral Type:*Home Health Care Services Referral ID:[id number] Provider Name:[facility] Address 1:[address] [facility] [address] Address 2: City:[place] Selection Factors: State:[place] Patient Contact Information Contact Name:AGUILAR Relationship:Other Address: Work Phone: City:[place] Alternate Phone: [facility]/Zip Code:[place] Email: Financial Information Financial Class:BCOP Primary Plan Desc:BC OUT OF STATE PPO Primary Plan Number:[id number] Secondary Plan Desc:MEDICA[place] Secondary Plan Number:[id number] Assessment Information LACE LACE Length of stay for Answers: 4-6 days current admission Comorbidities - select Answers: Opioid dependence all that apply / Chronic pain Other Notes: Extensive gastrointestinal hx # of Emergency department Answers: 12+ visits in the last 6 months Score: 15 Date Signed: 03/17/2018 01:31 PM Electronically Signed By:Yasmine Ferguson RN [facility] CM Progress Note CM Note CM Note Notes: Patient plan of care reviewed in rounds. She is well known to this hospital staff and discharged 8 days ago to home with HHC and [facility] infusion services. Per Dr. Clements contact Mickie Brar, Dr. Clements feels he can no longer provide the level of care she needs. Per Mickie, the patient has not followed up with dietary plan nor psychiatry as scheduled. She did not show up for endocrinology appointment with Dr. Calderon. Readmitted via ED with same complaints of GI distress but was previously worked up eight days prior. CM to follow. Plan: TBD Date Signed: 03/11/2018 02:41 PM Electronically Signed By:Yasmine Ferguson RN [facility] CM Progress Note CM Note CM Note Notes: Plan of care reviewed in rounds. Patient current with [facility] and [facility]. Referrals via allscripts. Patient reports to MD she is feeling better. CM to follow for needs. Plan: Home with HHC and infusions sevices as above. Date Signed: 03/12/2018 01:46 PM Electronically Signed By:Yasmine Ferguson RN [facility] CM Progress Note CM Note CM Note Notes: Patient plan of care reviewed in rounds. She reports to the physician that she is feeling better and does not need ativan as frequently, she still has low output per ostomy and is to start Reglan. Referrals in allscripts to [facility]. Anticipate dc to home with resumption of prior services when medically ready for discharge. Plan: Plan as outlined above. Date Signed: 03/13/2018 02:59 PM Electronically Signed By:Yasmine Ferguson RN [facility] CM Progress Note CM Note CM Note Notes: Plan of care reviewed in rounds this am. She is still requesting pain medications as they are scheduled. She normally lives independent with [facility] and infusion services. Plan: Dc with prior support services when medically ready for discharge. Date Signed: 03/15/2018 04:25 PM Electronically Signed By:Yasmine Ferguson RN Intervention Information
== END 2018-03-16 17:23 | disposition home health service (06) | DRG 391 ==
LOC: F1N 23:03 → OBSVTOIN 03-11 16:33
PROVIDERS: ADMIT Internal Medicine; ATTEND Internal Medicine
DX: R11.2 Nausea with vomiting, unspecified (principal); E86.0 Dehydration; E43 Unspecified severe protein-calorie malnutrition; K91.2 Postsurgical malabsorption, not elsewhere classified; K91.1 Postgastric surgery syndromes; F11.20 Opioid dependence, uncomplicated; E27.40 Unspecified adrenocortical insufficiency; M48.54XD Collapsed vertebra, not elsewhere classified, thoracic region, subsequent encounter for fracture with routine healing; N13.30 Unspecified hydronephrosis; G40.909 Epilepsy, unspecified, not intractable, without status epilepticus; R10.84 Generalized abdominal pain; G89.4 Chronic pain syndrome; F41.8 Other specified anxiety disorders; Z93.2 Ileostomy status
CPT/HCPCS: 96374; G0378; J1170; J1200; J2060; J2405; J2550; J2765; Q9967

== ENCOUNTER 2018-03-31 18:19 | Emergency (ER) | payer BC, MEDICAID ==
[2018-03-31] MEDS ORDERED: FAMOTIDINE 20 MG/NACL 50 ML IV ONE (18:48)
[2018-03-31] MEDS ORDERED: NS 1,000 ML IV ONE (18:48)
[2018-03-31] MEDS ORDERED: LORazepam 2 MG/ML INJ IVP ONE (18:50)
--- NOTE | 2018-03-31 18:59 | EDPHY ---
H & P Time Seen by Provider: 03/31/18 18:42 HPI/ROS: HPI Generalized fatigue, feeling of dehydration, muscle aches and joint aches. 22-year-old female by private vehicle with her boyfriend. This patient is a frequent visitor to our emergency department and very familiar to our staff. She presents to the emergency department stating that for the last 2 days she has had a sensation of feeling very tired and fatigued. She reports today she has felt feverish with muscle aches and joint aches some nausea and a feeling of dehydration. She reports that she has been vaccinated for influenza. She reports that she has had increased output from her ileostomy and feels that she is dehydrated from this. She has a complicated past medical history. Please see below. ROS: Constitutional: As above. Eyes: No discharge. No changes in vision. ENT: No sore throat. No nasal congestion or rhinorrhea. Respiratory: No cough. No shortness of breath. Cardiac: No chest pain, no palpitations. Gastrointestinal: No abdominal pain, no vomiting, no diarrhea. As above. Genitourinary: No hematuria. No dysuria or increased frequency with urination. Musculoskeletal: No back pain. No neck pain. As above. Skin: No rashes. Neurological: No headache. No focal weakness or altered sensation. Past medical history: Large intestine removed, ileostomy, intestinal pseudo obstructions, J-tube and G-tube replaced removed, gastroparesis, epilepsy, osteoporosis, scoliosis, adrenal insufficiency, kyphoplasty, gastrectomy Social history: Here with her boyfriend who is usually present with her. Nonsmoker. No alcohol. Physical Exam: General Appearance: Alert, she does not appear in distress. She is then in slight in stature This patient is responding to questions appropriately and in full sentences. This patient appears well-hydrated and well-nourished. Eyes: Pupils equal and round no pallor or injection. No lid edema, erythema or injection. ENT, Mouth: Mucous membranes are moist. The pharyngeal tissues are unremarkable. No edema or swelling. No asymmetry suggestive of abscess. No erythema or exudates. No cervical, submental, submandibular lymphadenopathy. Respiratory: There are no retractions, lungs are clear to auscultation with good air movement bilaterally. Cardiovascular: Regular rate and rhythm. No murmur. Gastrointestinal: Ileostomy site is clean and dry and without evidence of infection or significant drainage. Multiple scars over her abdomen from previous surgeries. Abdomen is soft and nontender, no masses, bowel sounds normal. No focal tenderness at McBurney's point. No Zambrano sign. Neurological: Motor sensory function is grossly intact. Cranial nerves are normal. Gait is normal. Skin: Warm and dry, no rashes. Musculoskeletal: Neck is supple and nontender. No pain on flexion of her neck. Extremities are symmetrical. All joints range without pain or impingement. Psychiatric: No agitation. No depression. Database: EKG: Imaging: Procedures: Emergency department course: Triage vital signs reviewed and are normal. IV was placed. She was started on IV normal saline with 1 L to be given over the next hour for dehydration. Her presentation is consistent with influenza or a viral syndrome. She states that Phenergan and Zofran do not help her for nausea. She is requesting Ativan. She will be given 0.5 mg of IV Ativan as well as 20 mg of IV Pepcid. I will also check her electrolytes. 8:30 p.m., the patient was re-evaluated, she is resting comfortably at this time. Her vital signs have remained normal. She is feeling much better. I discussed the results of her diagnostic workup in the emergency department. She feels comfortable going home with her boyfriend at this time and I feel this is reasonable. I have instructed her to follow up with her primary care physician for re-evaluation tomorrow. Return to the emergency department precautions were thoroughly reviewed with her. All of her questions were answered. She was discharged from the emergency department in good condition. Differential Diagnosis: The differential diagnosis on this patient includes but is not limited to viral syndrome. Bowel obstruction, serious bacterial infection, severe dehydration unlikely. This represents a partial list of diagnoses considered. These considerations are based on history, physical exam, past history, reassessment and diagnostic testing. Smoking Status: Never smoked Constitutional: Initial Vital Signs Temperature (C) 36.6 C 03/31/18 18:22 Heart Rate 90 03/31/18 18:22 Respiratory Rate 18 03/31/18 18:22 Blood Pressure 112/81 H 03/31/18 18:22 O2 Sat (%) 99 03/31/18 18:22 O2 Delivery Mode Room Air Allergies/Adverse Reactions: milk Allergy (Verified 01/08/19 18:21) mustard Allergy (Verified 03/31/18 18:21) Home Medications: Medication Instructions Recorded Multivitamins [Multivitamin (*)] 1 each PO DAILY 01/08/18 busPIRone [Buspar (*)] 5 mg PO TID #90 tab 01/25/18 Glutamine [Glutasolve Resource] 1 each PO TID #100 pkt 02/10/18 Lipase 12,000/Amylase/Protease 1 cap PO TIDMEAL #100 cap 02/10/18 [Creon 12 (*)] LORazepam [Ativan] 1 mg PO DAILY PRN #7 tablet 03/01/18 Cholecalciferol Vit D3 [Vitamin D3 1,000 units PO DAILY #100 tab 03/16/18 (*)] Dicyclomine [Bentyl 10 MG (*)] 10 mg PO QID PRN #120 cap 03/16/18 Ns [NS IV 1000ml (*)] 1,000 ml IV BID bag 03/16/18 Promethazine HCl [Phenergan 12.5 - 25 mg IVP Q6HRS PRN 7 Days 03/16/18 Injection] #700 inj Syringe,Safety with Needle,1Ml 1 each MC QID PRN 7 Days #30 03/16/18 [Magellan Safety Syringe] disp.syrin lamoTRIgine [LaMICtal] 50 mg PO BID #60 tab 03/16/18 oxyCODONE ORAL SOLUTION 20 mg PO QID PRN 7 Days #1 bottle 03/16/18 [Roxicodone Intensol] Medical Decision Making - Data Points Laboratory Results: Laboratory Results 03/31/18 19:00 03/31/18 19:00 03/31/18 03/31/18 03/31/18 19:15 19:00 19:00 WBC RBC Hgb Hct MCV MCH MCHC RDW Plt Count MPV Neut % (Auto) Lymph % (Auto) [place] % (Auto) Eos % (Auto) Baso % (Auto) Nucleat RBC Rel Count Absolute Neuts (auto) Absolute Lymphs (auto) Absolute Monos (auto) Absolute Eos (auto) Absolute Basos (auto) Absolute Nucleated RBC Immature Gran % Immature Gran # Sodium 139 mEq/L mEq/L (135-145) Potassium 3.8 mEq/L mEq/L (3.5-5.2) Chloride 113 mEq/L H mEq/L (97-110) Carbon Dioxide 22 mEq/l mEq/l (22-31) Anion Gap 4 mEq/L L mEq/L (6-14) BUN 5 mg/dL L mg/dL (7-23) Creatinine 0.5 mg/dL L mg/dL (0.6-1.0) Estimated GFR > 60 Glucose 87 mg/dL mg/dL (70-100) Calcium 8.4 mg/dL L mg/dL (8.5-10.4) Beta HCG, Qual NEGATIVE Nasal Influenza A PCR NEGATIVE FOR FLU A (NEGATIVE) Nasal Influenza B PCR NEGATIVE FOR FLU B (NEGATIVE) 03/31/18 19:00 WBC 5.74 10^3/uL 10^3/uL (3.80-9.50) RBC 3.85 10^6/uL L 10^6/uL (4.18-5.33) Hgb 11.5 g/dL L g/dL (12.6-16.3) Hct 34.5 % L % (38.0-47.0) MCV 89.6 fL fL (81.5-99.8) MCH 29.9 pg pg (27.9-34.1) MCHC 33.3 g/dL g/dL (32.4-36.7) RDW 12.4 % % (11.5-15.2) Plt Count 262 10^3/uL 10^3/uL (150-400) MPV 8.8 fL fL (8.7-11.7) Neut % (Auto) 53.8 % % (39.3-74.2) Lymph % (Auto) 36.9 % % (15.0-45.0) [place] % (Auto) 7.8 % % (4.5-13.0) Eos % (Auto) 0.9 % % (0.6-7.6) Baso % (Auto) 0.3 % % (0.3-1.7) Nucleat RBC Rel Count 0.0 % % (0.0-0.2) Absolute Neuts (auto) 3.08 10^3/uL 10^3/uL (1.70-6.50) Absolute Lymphs (auto) 2.12 10^3/uL 10^3/uL (1.00-3.00) Absolute Monos (auto) 0.45 10^3/uL 10^3/uL (0.30-0.80) Absolute Eos (auto) 0.05 10^3/uL 10^3/uL (0.03-0.40) Absolute Basos (auto) 0.02 10^3/uL 10^3/uL (0.02-0.10) Absolute Nucleated RBC 0.00 10^3/uL 10^3/uL (0-0.01) Immature Gran % 0.3 % % (0.0-1.1) Immature Gran # 0.02 10^3/uL 10^3/uL (0.00-0.10) Sodium Potassium Chloride Carbon Dioxide Anion Gap BUN Creatinine Estimated GFR Glucose Calcium Beta HCG, Qual Nasal Influenza A PCR Nasal Influenza B PCR Medications Given: Discontinued Medications Sodium Chloride (Ns) 1,000 mls @ 0 mls/hr IV EDNOW ONE; Wide Open PRN Reason: Protocol Stop: 03/31/18 18:49 Last Admin: 03/31/18 19:07 Dose: 1,000 mls Famotidine/Sodium Chloride (Pepcid 20 Mg (Premix)) 50 mls @ 200 mls/hr IV EDNOW ONE Stop: 03/31/18 19:02 Last Admin: 03/31/18 19:09 Dose: 50 mls Lorazepam (Ativan Injection) 0.5 mg IVP EDNOW ONE Stop: 03/31/18 18:51 Last Admin: 03/31/18 19:09 Dose: 0.5 mg Departure - Departure Disposition: Home, Routine, Self-Care Clinical Impression: Viral syndrome Condition: Good Instructions: Viral Syndrome (ED) Additional Instructions: Read and follow provided instructions. Follow-up with your primary care physician tomorrow or the next day for re- evaluation as discussed. Keep well hydrated as discussed. Take your medication as prescribed. Return to the emergency department for worsening symptoms or other serious concerns. Referrals: NONE *PRIMARY CARE P,. [Primary Care Provider] - As per Instructions
[2018-03-31 19:11] LABS: PLATELET COUNT 262 10^3/uL (150-400)
[2018-03-31 20:38] VITALS: BP 102/68
== END 2018-03-31 20:37 | disposition home or self-care (01) ==
DX: B34.9 Viral infection, unspecified (principal)
CPT/HCPCS: 96374; J2060

== ENCOUNTER 2018-03-31 22:04 | Observation (INO) | payer BC, MEDICAID ==
[2018-03-31] MEDS ORDERED: LR 1,000 ML IV ONE ×2 (23:04→23:05)
[2018-03-31] MEDS ORDERED: PROMETHAZINE HCL 25 MG/ML INJ IVP ONE (23:05)
--- NOTE | 2018-03-31 23:09 | EDPHY ---
H & P Stated Complaint: nvd seen earlier now lightheaded Time Seen by Provider: 03/31/18 22:25 HPI/ROS: Chief Complaint: Nausea, dehydration, lightheaded HPI: 22-year-old woman well known to this emergency department with significant chronic medical history as outlined below. Patient was seen earlier today with general malaise and increased ostomy output. Laboratory evaluations at that time were unremarkable. She received a L of IV fluids and some Ativan was feeling better. Patient stating went home and is continuing to have a lot of ostomy output. She says she is nauseated and not able to tolerate any p.o.. She became very concerned when she started getting lightheaded when she stood up. She feels she would benefit from more IV fluids and nausea medications. She has also been unable to take her chronic pain medications secondary to her nausea. She has not vomited. No fevers or chills. Does have chronic abdominal pain which is unchanged from usual. ROS: 10 systems were reviewed and were negative except those elements noted in the HPI. Social History: No smoking, no alcohol, no recreational drug use Family History: non-contributory Physical Exam: Gen: Awake, Alert, No Distress HEENT: Nose: no rhinorrhea Eyes: PERRLA, EOMI Mouth: Moist mucosa Neck: Supple, no JVD Chest: nontender, lungs clear to auscultation Heart: S1, S2 normal, no murmur Abd: Soft, non-tender, no guarding, significant scarring, ostomy site is non erythematous, no abnormal discharge. Back: no CVA tenderness, no midline tenderness Ext: no edema, non-tender Skin: no rash Neuro: CN II-XII intact, Sensation grossly intact, Strength 5/5 in bilateral upper and lower extremities - Personal History LMP (Females 10-55): Unknown Current Tetanus/Diphtheria Vaccine: Yes Current Tetanus Diphtheria and Acellular Pertussis (TDAP): Yes Tetanus Vaccine Date: 2011 - Medical/Surgical History Hx Asthma: No Hx Chronic Respiratory Disease: No Hx Diabetes: No Hx Cardiac Disease: No Hx Renal Disease: No Hx Cirrhosis: No Hx Alcoholism: No Hx HIV/AIDS: No Hx Splenectomy or Spleen Trauma: No Other PMH: large intestine removed, BCIR 09/07 contINent illiostomy, intestinal pseudo obstruction, j tube placed- REMOVED, g tube placed- REMOVED, gastroparesis, epilepsy--. T3-12 FX , KYPHOPLASTY X2 2018, gastrectomy. ? ADRENAL INSUFF, OSTEOPOROSIS - Social History Smoking Status: Never smoked Constitutional: Initial Vital Signs Heart Rate 90 03/31/18 22:07 Respiratory Rate 18 03/31/18 22:07 Blood Pressure 118/100 H 03/31/18 22:07 O2 Sat (%) 98 03/31/18 22:07 O2 Delivery Mode Room Air Allergies/Adverse Reactions: milk Allergy (Verified 03/31/18 18:21) mustard Allergy (Verified 03/31/18 18:21) Home Medications: Medication Instructions Recorded Multivitamins [Multivitamin (*)] 1 each PO DAILY 01/08/18 busPIRone [Buspar (*)] 5 mg PO TID #90 tab 01/25/18 Glutamine [Glutasolve Resource] 1 each PO TID #100 pkt 02/10/18 Lipase 12,000/Amylase/Protease 1 cap PO TIDMEAL #100 cap 02/10/18 [Creon 12 (*)] LORazepam [Ativan] 1 mg PO DAILY PRN #7 tablet 03/01/18 Cholecalciferol Vit D3 [Vitamin D3 1,000 units PO DAILY #100 tab 03/16/18 (*)] Dicyclomine [Bentyl 10 MG (*)] 10 mg PO QID PRN #120 cap 03/16/18 Ns [NS IV 1000ml (*)] 1,000 ml IV BID bag 03/16/18 Promethazine HCl [Phenergan 12.5 - 25 mg IVP Q6HRS PRN 7 Days 03/16/18 Injection] #700 inj Syringe,Safety with Needle,1Ml 1 each MC QID PRN 7 Days #30 03/16/18 [[employer]ellan Safety Syringe] disp.syrin lamoTRIgine [LaMICtal] 50 mg PO BID #60 tab 03/16/18 oxyCODONE ORAL SOLUTION 20 mg PO QID PRN 7 Days #1 bottle 03/16/18 [Roxicodone Intensol] Medical Decision Making ED Course/Re-evaluation: Patient is still complaining of nausea and dehydration. I have discussed with hospitalist. Will admit for continued hydration and care. - Data Points Medications Given: Discontinued Medications Diphenhydramine HCl (Benadryl Injection) 50 mg IVP EDNOW ONE Stop: 03/31/18 23:23 Last Admin: 03/31/18 23:24 Dose: 50 mg Lactated Ringer's (Lr) 1,000 mls @ 0 mls/hr IV EDNOW ONE; Wide Open PRN Reason: Protocol Stop: 03/31/18 23:05 Last Admin: 03/31/18 23:18 Dose: 1,000 mls Lactated Ringer's (Lr) 1,000 mls @ 0 mls/hr IV EDNOW ONE; Wide Open PRN Reason: Protocol Stop: 03/31/18 23:06 Last Admin: 03/31/18 23:18 Dose: 1,000 mls Promethazine HCl (Phenergan) 25 mg IVP EDNOW ONE Stop: 03/31/18 23:06 Last Admin: 03/31/18 23:14 Dose: 25 mg Departure - Departure Disposition: [facility] Inpatient Acute Clinical Impression: Dehydration Condition: Fair Referrals: Umu Hill DO [Primary Care Provider] - As per Instructions
[2018-04-01] MEDS ORDERED: ONDANSETRON DISINTEGRATING 4 MG TAB PO PRN (01:44)
[2018-04-01] MEDS ORDERED: ONDANSETRON 4 MG/2 ML VIAL IVP PRN (01:44)
[2018-04-01] MEDS ORDERED: ACETAMINOPHEN 325 MG TAB PO PRN (01:44)
--- NOTE | 2018-04-01 02:21 | PDGENHP ---
History and Physical - Chief Complaint Fatigue, nausea - History of Present Illness 22 y/o female with a complicated gastrointestinal history of dysmotility/pseudo- obstruction s/p total colectomy with continent ileostomy placement, gastrectomy with Chandler-en-Y gastrojejunostomy, median arcuate ligament syndrome s/p release, kyphoplasty and numerous hospitalizations for dehydration and electrolyte disturbances presents with nausea and vomiting. The patient was discharged on for management of similar issues. She had been doing well until yesterday when she developed fatigue, malaise, nausea/vomiting, and increased ostomy output. She receives 2 L IVF daily at home via PICC and was most recently discharged with Phenergan IV, which she states had been helping up until today. She denies fevers, chills, and dysuria. This is her second visit to the ED today so she is being admitted for observation. Case discussed with ED physician Dr. Yoon; records reviewed and summarized above. History Information - Allergies/Home Medication List Allergies/Adverse Reactions: milk Allergy (Verified 03/31/18 18:21) mustard Allergy (Verified 03/31/18 18:21) Home Medications: Multivitamins [Multivitamin (*)] 1 each PO DAILY 01/08/18 [Last Taken 03/07/18] I have personally reviewed and updated: family history, medical history Past Medical History: See HPI - Past Medical History Additional medical history: Intestinal pseudoobstruction s/p colectomy and gastrectomy, SMA syndrome, median arcuate ligement syndrome, gastroparesis, vertebral compression fractures, seizure disorder - Surgical History Additional surgical history: total colectomy with continent ileostomy formation , gastrectomy with Chandler-en-Y gastrojejunostomy, median arcuate ligament release , SMA syndrome release, G and J tubes which are now removed - Family History Additional family history: VTE - Social History Smoking Status: Never smoked Additional social history: Lives with el and 2 other roommates, 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 Review of Systems Review of Systems: ROS: 10pt was reviewed & negative except for what was stated in HPI & below Physical Exam Physical Exam: Temp Pulse Resp BP Pulse Ox 68 16 105/77 98 04/01/18 01:21 04/01/18 01:21 04/01/18 01:21 04/01/18 01:21 Constitutional: chronically ill appearing, uncomfortable Eyes: PERRL, EOMI Ears, Nose, Mouth, Throat: moist mucous membranes, no oral mucosal ulcers Cardiovascular: regular rate and rhythym, no murmur, rub, or gallop Respiratory: no respiratory distress, clear to auscultation Gastrointestinal: normoactive bowel sounds, soft, non-tender abdomen Skin: warm, normal color Musculoskeletal: full muscle strength, no muscle tenderness Neurologic: AAOx3, CN II-XII Intact Psychiatric: interacting appropriately, not anxious Assessment & Plan Assessment: 22 y/o female with a complicated gastrointestinal history of dysmotility/pseudo- obstruction s/p total colectomy with continent ileostomy placement, gastrectomy with Chandler-en-Y gastrojejunostomy, median arcuate ligament syndrome s/p release, kyphoplasty and numerous hospitalizations for dehydration and electrolyte disturbances presents with nausea and vomiting. Plan: 1. Nausea, vomiting - Intractable for 1 days with increased bowel output. Unclear if there is an acute trigger present or if this represents flare of her period GI issues, which are unfortunately frequent. Her laboratory work-up and abdominal exam are reassuring. - Admit for observation - mIVF, clear liquids, ADAT - Anti-emetics PRN 2. Hx rapid bowel transit - This has been the reason for several recent admissions. An extensive work-up has largely been negative including normal cosyntropin stimulation test during most recent admission. She has been receiving 1 L NS BID at home via PICC line, which she felt was helpful. Phenergan IV has also been added to her home regimen. - Continue glutamine, pancreatic enzymes pending reconciliation 3. Thoracic compression fractures, osteoporosis - Possibly obtained during previous seizure event. She controls pain with oxycodone at home. S/p T10 kyphoplasty during most recent admission. - Continue home pain medications - Continue Vit D, outpatient endocrinology consult ordered at last discharge 4. Intestinal dysmotility - S/p a host of surgical interventions including total colectomy and gastrectomy. 5. SMA syndrome, median arcuate ligament syndrome: S/p surgical release with Dr Yao 6. Seizure disorder - Continue home meds, no recent seizures reported. 7. Severe protein calorie malnutrition - Long standing issue for this patient 8. Anxiety - Now on buspirone, will continue Diet - Clears, ADAT Code - Full Ppx - Low risk, ambulate TID Dispo - Admit under observation status
[2018-04-01] MEDS: LORazepam 2 MG/ML INJ IVP PRN ×2 (03:04→09:42)
[2018-04-01] MEDS: oxyCODONE ORAL SOLUTION 10 MG/0.5 ML UDSYR PO PRN ×4 (03:14→21:01)
[2018-04-01] MEDS: HYDROmorphONE/DILAUDID 1 MG/ML INJ IVP PRN ×2 (03:14→09:41)
[2018-04-01] MEDS: PROMETHAZINE HCL 25 MG/ML INJ IVP PRN ×3 (05:12→18:23)
[2018-04-01] MEDS: NS W/ 20 KCl/L 1,000 ML IV SCH ×3 (05:13→22:07)
--- NOTE | 2018-04-01 10:37 | ASMTCMCOM ---
CM Note CM Note Notes: Chart reviewed, 22 year old patient well known to hospital with recurrent c/o N/V and high ostomy output who has undergone exhaustive GI workup during her last admission. Per her PCP she is to be discharged from the service due to lack of follow through on patient's behalf to come to appointments and see her psychiatrist. She has multiple gastrointestinal issues but does not adhere to prescribed diet and is demanding with PCP office with regards to obtaining her pain medications. Last discharged with [facility]. 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 Plan: Home with resumption of previous services. Date Signed: 04/01/2018 10:36 AM Electronically Signed By:Yasmine Ferguson RN
--- NOTE | 2018-04-01 13:26 | HOSPPROG ---
Hospitalist Progress Note Assessment/Plan: 22 y/o female with a complicated gastrointestinal history of dysmotility/pseudo- obstruction s/p total colectomy with continent ileostomy placement, gastrectomy with Chandler-en-Y gastrojejunostomy, median arcuate ligament syndrome s/p release, kyphoplasty and numerous hospitalizations for dehydration and electrolyte disturbances admitted with nausea and vomiting. This morning she is doing better. She is now able to tolerate PO including meds. We had a long discussion about her medications and my opinion is the her chronic pain meds are contributing to her abd symptoms and her frequent hospitalizations. Our goal should be to wean her off all pain meds. Today, IV Dilaudid will be stopped. She can continue with Oxy as ordered but will attempt to wean this tomorrow. She reports taking the Ativan for nausea. This will be ordered as third line; she will get Phenergan and Zofran first. #N/V, appears significantly improved # Hx rapid bowel transit - This has been the reason for several recent admissions. An extensive work-up has largely been negative including normal cosyntropin stimulation test during most recent admission. She has been receiving 1 L NS BID at home via PICC line, which she felt was helpful. Phenergan IV has also been added to her home regimen. - Continue glutamine, pancreatic enzymes pending reconciliation # Thoracic compression fractures, osteoporosis - Possibly obtained during previous seizure event. -S/p T10 kyphoplasty during most recent admission. - Continue home pain medications but ultimately needs to wean off pain meds - Continue Vit D, outpatient endocrinology consult ordered at last discharge # Intestinal dysmotility - S/p a host of surgical interventions including total colectomy and gastrectomy. # SMA syndrome, median arcuate ligament syndrome: S/p surgical release with Dr Yao #Seizure disorder - Continue home meds, no recent seizures reported. #Severe protein calorie malnutrition - Long standing issue for this patient # Anxiety - Now on buspirone, will continue. Would likely benefit from an SSRI such as Zoloft or Prozac; she is thinking about it. Diet - advance to reguar Code - Full Ppx - Low risk, ambulate TID Subjective: some back pain. no abd pain. Objective: Vital Signs Temp Pulse Resp BP Pulse Ox 36.7 C 96 18 116/92 H 95 04/01/18 08:00 04/01/18 13:17 04/01/18 13:17 04/01/18 13:17 04/01/18 13:17 Laboratory Results 04/01/18 04:13 03/31/18 04/01/18 04/02/18 05:59 05:59 05:59 Intake Total 505 Output Total 600 Balance -95 - Physical Exam Constitutional: chronically ill appearing Eyes: PERRL Ears, Nose, Mouth, Throat: moist mucous membranes Cardiovascular: regular rate and rhythym Respiratory: no respiratory distress, no rales or rhonchi, clear to auscultation Gastrointestinal: normoactive bowel sounds Skin: warm Neurologic: AAOx3 Psychiatric: interacting appropriately, not encephalopathic, anxious Lymph, Heme, Immunologic: No petechiae ICD10 Worksheet Patient Problems: Problems Problem Status Onset Dehydration Acute Abdominal abscess Acute Abdominal pain Acute Compression fracture of body of thoracic vertebra Acute Diarrhea Acute Hypochloremia Acute Intractable nausea and vomiting Acute Intractable vomiting Acute Lightheadedness Acute Nausea Acute Near syncope Acute Shortness of breath Acute Syncope Acute Volume depletion Acute
[2018-04-01] MEDS: LIPASE 12,000/AMYLASE/PROTEASE (CREON) 1 CAP PO SCH ×2 (16:09→18:24)
[2018-04-01] MEDS: busPIRone 5 MG TAB PO SCH ×2 (16:10→22:07)
[2018-04-01] MEDS: GLUTAMINE (GLUTASOLVE) 1 EACH PKT PO SCH ×2 (16:15→22:07)
--- NOTE | 2018-04-01 16:57 | PDPCPN ---
Palliative Care Progress Note Assessment/Plan: Assessment: [facility] [address] [place] [id number] (O) [phone](F) PALLIATIVE CARE NOTE Name: Andree Fuller Age: 22 Visit Type: Subsequent Palliative Visit Location: [facility] Date: 04/01/2018 Level of Care: Transitional DIAGNOSES: 1. Celiac Artery Compression Syndrome 2. Abdominal pain 3. Intestinal Dysmotility CC: Follow-up Palliative care visit HPI: Patient is a 22 year-old female who was referred to [facility] care from [facility]. Patient has an extensive history of abdominal problems with intestinal dysmotility/pseudo obstruction. She is status post total colectomy with continent ileostomy. She has had a gastrectomy with Chandler-en-Y gastrojejunectomy, median arcuate ligament syndrome status post release. She has had multiple recent hospitalizations for dehydration and electrolyte disturbances. She has now been admitted for significant output from her ileostomy as well as uncontrolled nausea. PMH: Intestinal dysmotility, gastroparesis, vertebral compression fracture and seizure disorder. Surgeries include SMA syndrome release and placement and release of G and J tubes, total colectomy in July. Depression and anxiety- history of panic attacks, difficulty coping with chronic disease. Allergies: Mustard and Milk. Cannot take tramadol because lowers seizure threshold. Also reports she cannot take Tylenol. 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 Lives with her bob and 2 other roommates. Advance Directives: Full COR with Full treatment. Temporary tube feedings. MDPOA: [place]- fianc Patient Goals of Care: 1. Pain control 2. Stay out of the hospital ACTIVE SYMPTOMS/ASSESSMENTS/RECOMMENDATIONS 1. Nausea- Patient reports frequent episodes of nausea. She has been receiving IV Phenergan at home which she states has been effective until the last 24 hours. 2. Pain- Andree reports chronic pain, mostly to her back and abdomen. she states today that her pain has been fairly well controlled. She states that her general practitioner will be making another referral to a pain management clinic. 3. Dehydration- continues to receive IV fluids at this time. 4. Depression/anxiety- Per [facility] records patient has a history of panic attacks and difficulty coping with chronic disease. While hospitalized [facility] staff attempted an integrative care consult to help with coping strategies and patient would not engage. Records indicate patient has tried several SSRI's, Mirtazapine and TCA antidepressants with no effect. [facility] suggested Vistaril and Buspar in last discharge note- neither of which patient reports taking. [facility] suggested Psych consult. PCP has instructed patient to go to psychotherapy in order for her to continue to receive treatment from PCP. 5. Prognosis: Years. 6. Hospice Eligibility: No: Does not meet criteria 7. Recommended Hospice Admitting Diagnosis: N/A MODIFIED [place] SYMPTOM ASSESSMENT SCALE 0-none; 1-3 mild; 4-6 moderate; 7-10 severe Unable to Respond: No Delirium: 0-none Depression: 4-6 moderate Anxiety: 4-6 moderate Tiredness (fatigue): 0- none Drowsiness (sleepiness): 0-none Pain: 7-10 severe Nausea: 4-6 moderate Anorexia: 1-3 mild Shortness of Breath: 0-none Secretions: 0-none Constipation: 0-none Symptom and side effect management: acceptable to patient and family. RISK FACTORS FOR ADMISSION AND READMISSION TO THE HOSPITAL: o CAREGIVER ANXIETY- yes o HISTORY OF NONCOMPLIANCE WITH MEDICATION- YES o MENTAL HEALTH DISORDER (i.e. ANXIETY, DEPRESSION)- YES o >2 HOSPITALIZATIONS IN PAST 12 MONTHS- YES o DISEASE EDUCATION DEFICIT- YES OBJECTIVE FINDING Palliative Performance Score: 80 FAST: N/A NYHA: N/A Wt.: 94 lbs. 02/19/18 , 95 lbs. in December MAC: 20 cm, was 19.5 cm last visit. Vitals: Neuro: A&O to person, place, time and event; Pleasant and cooperative. No neuro deficits. HEENT: Normocephalic; atraumatic. Mucous membranes pink, moist. RESP: Regular, deep, symmetrical. No cough or wheezing. Breath sounds CTA. CV: S1/S2, no murmur, gallop or rub. HR regular. No LE edema. Radial and pedal pulses 2+ bilaterally. Capillary refill <3 seconds. PICC line catheter to right upper arm. GI: Bowel sounds present times 4. Abdomen soft, flat, slightly tender to palpation. Patient has continent ostomy with small 4x4 dressing covering opening to RLQ. She reports she access the site using a catheter to drain the "pouch." MSK: marked muscle wasting . Ambulatory without assistive devices. No ataxia. SKIN: Dry, intact. Skin turgor non-tenting. LAB Data: N/A Medications: Advance Care Planning Family Support - Barbara is [place]. PALLIATIVE SUMMARY: we discussed today that on an outpatient basis palliative care has limited ability to provide any further services. We will likely have another visit at home when she is discharged to further discuss transitioning off of palliative care services. PLAN: SOCIAL MEDIA COMMUNITY MANAGER: Follow up after discharge Palliative Supportive Services: CN and SW support. Thank you for the opportunity to participate in the care of this patient. TIME SPENT: [id number] 35 minutes >50% of the time spent counseling, educating and coordinating the above topics. Sunday Garcia [facility] Plan: 04/01/18 16:57 Objective: Vital Signs Temp Pulse Resp BP Pulse Ox 36.4 C 108 H 16 110/73 97 04/01/18 15:42 04/01/18 15:42 04/01/18 15:42 04/01/18 15:42 04/01/18 15:42 Laboratory Results 04/01/18 04:13 03/31/18 04/01/18 04/02/18 05:59 05:59 05:59 Intake Total 505 Output Total 600 Balance -95 ICD10 Worksheet Patient Problems: Problems Problem Status Onset Dehydration Acute Abdominal abscess Acute Abdominal pain Acute Compression fracture of body of thoracic vertebra Acute Diarrhea Acute Hypochloremia Acute Intractable nausea and vomiting Acute Intractable vomiting Acute Lightheadedness Acute Nausea Acute Near syncope Acute Shortness of breath Acute Syncope Acute Volume depletion Acute
[2018-04-01] MEDS: lamoTRIgine 25 MG TAB PO SCH (22:07)
[2018-04-02] MEDS: PROMETHAZINE HCL 25 MG/ML INJ IVP PRN ×4 (00:20→18:11)
[2018-04-02] MEDS: oxyCODONE ORAL SOLUTION 10 MG/0.5 ML UDSYR PO PRN ×5 (01:17→22:29)
[2018-04-02 05:27] LABS: PLATELET COUNT 261 10^3/uL (150-400)
[2018-04-02] MEDS: NS W/ 20 KCl/L 1,000 ML IV SCH ×2 (06:35→22:32)
[2018-04-02] MEDS: busPIRone 5 MG TAB PO SCH ×3 (10:13→22:29)
[2018-04-02] MEDS: LIPASE 12,000/AMYLASE/PROTEASE (CREON) 1 CAP PO SCH ×3 (10:13→16:51)
[2018-04-02] MEDS: lamoTRIgine 25 MG TAB PO SCH ×2 (10:13→22:29)
[2018-04-02] MEDS: CHOLECALCIFEROL VIT D3 1,000 UNITS TAB PO SCH (10:13)
[2018-04-02] MEDS: MULTIVITAMINS 1 EACH TAB PO SCH (10:13)
[2018-04-02] MEDS: GLUTAMINE (GLUTASOLVE) 1 EACH PKT PO SCH ×3 (10:38→22:31)
--- NOTE | 2018-04-02 12:31 | HOSPPROG ---
Hospitalist Progress Note Assessment/Plan: 22 y/o female with a complicated gastrointestinal history of dysmotility/pseudo- obstruction s/p total colectomy with continent ileostomy placement, gastrectomy with Chandler-en-Y gastrojejunostomy, median arcuate ligament syndrome s/p release, kyphoplasty and numerous hospitalizations for dehydration and electrolyte disturbances admitted with nausea and vomiting. #N/V, appears significantly improved # Hx rapid bowel transit - This has been the reason for several recent admissions. An extensive work-up has largely been negative including normal cosyntropin stimulation test during most recent admission. She has been receiving 1 L NS BID at home via PICC line, which she felt was helpful. Phenergan IV has also been recently added to her home regimen. - Continue glutamine, pancreatic enzymes pending reconciliation # Thoracic compression fractures, osteoporosis - Possibly obtained during previous seizure event. -S/p T10 kyphoplasty during most recent admission. - Continue home pain medications but ultimately needs to wean off pain meds - Continue Vit D, outpatient endocrinology consult ordered at last discharge # Intestinal dysmotility - S/p a host of surgical interventions including total colectomy and gastrectomy. # SMA syndrome, median arcuate ligament syndrome: S/p surgical release with Dr Yao #Seizure disorder - Continue home meds, no recent seizures reported. #Severe protein calorie malnutrition - Long standing issue for this patient # Anxiety - Now on buspirone, will continue. Would likely benefit from an SSRI such as Zoloft or Prozac; she is thinking about it. Diet - advance to reguar Code - Full Ppx - Low risk, ambulate TID Plan: -No IV Pain meds. No Dilaudid -Change Oxy to q 6hr prn. Ultimately she would benefit from weaning her meds -Nausea: Phenergan (first), Benadryl (2nd), Ativan (3rd). Has not required Ativan since 04/01 a.m. -cont IVF -She will f/u with a pain specialist as an op -ostomy output has decreased Subjective: nausea better. abd pain better. back pain better. seems like she is feeling happy today. Objective: Vital Signs Temp Pulse Resp BP Pulse Ox 36.6 C 73 16 110/76 96 04/02/18 08:47 04/02/18 08:47 04/02/18 08:47 04/02/18 08:47 04/02/18 08:47 Laboratory Results 04/02/18 05:10 04/02/18 05:10 04/01/18 04/02/18 04/03/18 05:59 05:59 05:59 Intake Total 505 1850 Output Total 600 2400 Balance -95 -550 - Physical Exam Constitutional: no apparent distress Eyes: PERRL Ears, Nose, Mouth, Throat: moist mucous membranes, hearing normal Cardiovascular: regular rate and rhythym, No edema Respiratory: no respiratory distress, no rales or rhonchi Gastrointestinal: normoactive bowel sounds, soft, non-tender abdomen Skin: warm Neurologic: AAOx3 Psychiatric: interacting appropriately, not anxious, not encephalopathic Lymph, Heme, Immunologic: No petechiae ICD10 Worksheet Patient Problems: Problems Problem Status Onset Dehydration Acute Abdominal abscess Acute Abdominal pain Acute Compression fracture of body of thoracic vertebra Acute Diarrhea Acute Hypochloremia Acute Intractable nausea and vomiting Acute Intractable vomiting Acute Lightheadedness Acute Nausea Acute Near syncope Acute Shortness of breath Acute Syncope Acute Volume depletion Acute
--- NOTE | 2018-04-02 16:02 | ASMTCMCOM ---
CM Note CM Note Notes: Spoke with pt during rounds. Pt requested CM speak with PCP Dr. Ye at [facility] per Sergio's request for coordination of care. Hospitalist stated he was also available to speak with PCP if needed but would need her direct number. (See CM note from 04/01 for more details.) Message left for Dr. Hill, no response received yet. Pt also stated she obtained appt with pain clinic on 04/20. Referral sent to [facility], though [facility] may discontinue services per their note. CM to follow. D/C Plan: [facility], [facility] (resuming services) Date Signed: 04/02/2018 04:02 PM Electronically Signed By:America Villarreal
[2018-04-03] MEDS: PROMETHAZINE HCL 25 MG/ML INJ IVP PRN ×3 (00:26→12:37)
[2018-04-03] MEDS: oxyCODONE ORAL SOLUTION 10 MG/0.5 ML UDSYR PO PRN ×2 (04:37→10:37)
[2018-04-03 10:28] VITALS: BP 106/76
[2018-04-03] MEDS: LIPASE 12,000/AMYLASE/PROTEASE (CREON) 1 CAP PO SCH ×2 (10:29→15:14)
[2018-04-03] MEDS: busPIRone 5 MG TAB PO SCH (10:29)
[2018-04-03] MEDS: lamoTRIgine 25 MG TAB PO SCH (10:29)
[2018-04-03] MEDS: MULTIVITAMINS 1 EACH TAB PO SCH (10:29)
[2018-04-03] MEDS: CHOLECALCIFEROL VIT D3 1,000 UNITS TAB PO SCH (10:29)
[2018-04-03] MEDS: GLUTAMINE (GLUTASOLVE) 1 EACH PKT PO SCH (10:33)
--- NOTE | 2018-04-03 13:18 | PDDCSUM ---
Discharge Summary Discharge Summary: HPI/Hospital Course: 22 y/o female with a complicated gastrointestinal history of dysmotility/pseudo- obstruction s/p total colectomy with continent ileostomy placement, gastrectomy with Chandler-en-Y gastrojejunostomy, median arcuate ligament syndrome s/p release, kyphoplasty and numerous hospitalizations for dehydration and electrolyte disturbances admitted with nausea and vomiting. She has had numerous admissions recently. There is high concern that admissions are related to seeking opiates. Please see below. She was admitted and started on IVF and IV Dilaudid was given. Overnight she improved and in the morning IV Dilaudid was stopped. She had also been given IV Ativan and this was stopped. She has not required IV Dilaudid or IV Ativan since day one of her hospitalization. She has not received PO Ativan either. Pain has been treated by Oxycodone PRN. For Nausea, she has continues on IV Phenergan and Benadryl. As she is better today and as she is asking for d/c, she will be discharged. She recently was let go from her pain specialist. I spoke with her PCP, Dr. Dahl. The pt is being discharged from their clinic due to no following her pain contract and concern for opiate abuse. Paperwork was sent 4 days ago and the pt has not had a chance to review it at this time. Dr. Dahl provides a history with high concerns for opiate abuse. The pt will be establishing with a new pain clinic on Apr 20. The pt reports chronic pain to her abd and back although during this admission it was to her back. She does have a compression fracture. She seems very comfortable and pain free during my evaluations. During her last admission she reported that her pain was in her abdomen and not her back. I believe the best course is for this patient to not be on narcotics pain meds. Dr. Dahl recently prescribed a full month of Oxycodone but the patient only partially filled it. The pt does have some left over at home. I am prescribing her another weeks worth with the hope that she can continue to wean. The dose has been changed from q6 to q8hrs. If she were to present to the ED again, would provide hydration if needed but would avoid IV Narcotics and Benzo's. If she does get admitted would avoid IV narcotics if clinically not indicated She has had extensive GI evaluation here and at this point has been referred to the [facility]. She has not established there #N/V, appears significantly improved # Hx rapid bowel transit - This has been the reason for several recent admissions. An extensive work-up has largely been negative including normal cosyntropin stimulation test during most recent admission. She has been receiving 1 L NS BID at home via PICC line, which she felt was helpful. Phenergan IV has also been recently added to her home regimen. - Continue glutamine, pancreatic enzymes pending reconciliation # Thoracic compression fractures, osteoporosis - Possibly obtained during previous seizure event. -S/p T10 kyphoplasty during most recent admission. - Continue home pain medications but ultimately needs to wean off pain meds - Continue Vit D, outpatient endocrinology consult ordered at last discharge # Intestinal dysmotility - S/p a host of surgical interventions including total colectomy and gastrectomy. # SMA syndrome, median arcuate ligament syndrome: S/p surgical release with Dr Yao #Seizure disorder - Continue home meds, no recent seizures reported. #Severe protein calorie malnutrition - Long standing issue for this patient # Anxiety - Now on buspirone, will continue. Would likely benefit from an SSRI such as Zoloft or Prozac; she is thinking about it. She refused to start one at this time Diet - advance to regular Code - Full Ppx - Low risk, ambulate TID Exam: NAD AAOX3 RRR CTAB S/NT/ND MEDS: SEE MED REC TOTAL TIME SPENT ON D/C INCLUDING D/W TEAM AND DR. DAHL IS 45 MINUTES
--- NOTE | 2018-04-03 14:09 | ASMTLACE ---
AMBER Length of stay for Answers: 2 days current admission Acuity / Level of Answers: No Care: Did the patient have an inpatient admission? Comorbidities - select Answers: Opioid dependence all that apply / Chronic pain Other Notes: Extensive gastrointestinal histor y # of Emergency department Answers: 12+ visits in the last 6 months Social determinants Answers: Mental health diagnosis (anxiety, depression, pers onality disorders, etc.) Score: 16 Date Signed: 04/03/2018 02:09 PM Electronically Signed By:America Villarreal
--- NOTE | 2018-04-03 14:19 | ASDISCHSUM ---
Discharge Information Plan Status:Home with Home Health Medically Cleared to Leave:04/02/2018 Discharge Date:04/02/2018 CM D/C Disposition:Home Health Service [facility] D/C Disposition:Home, Routine, Self-Care Projected Discharge Date:04/02/2018 11:00 AM Transportation at D/C:Family Discharge Delay Reason: Follow-Up Date:04/02/2018 11:00 AM Discharge Slot: Final Diagnosis:nausea, vomit, rapid bowel transit Placement Information Referral Type:*Home Health Care Services Referral ID:[id number] Provider Name:[facility] Address 1:[address] [facility] [address] Address 2: City:[place] Selection Factors: State:[place] Referral Type:Home Infusion Referral ID:[id number] Provider Name:[facility] Address 1:[address] Address 2: City:[place] Selection Factors: [place] Referral Type:Palliative Care Referral ID:[id number] Provider Name:[facility] Address 1:[address] Phone Number: Address 2: Fax Number: City:[place] Selection Factors: State:[place] Patient Contact Information Contact Name:AGUILAR Relationship:Other Address: Work Phone: City:[place] Alternate Phone: [facility] Code:[place] Email: Financial Information Financial Class:BCOP Primary Plan Desc: OUT OF [place] [employer] Primary Plan Number:[id number] Secondary Plan Desc:MEDICAID [place] Secondary Plan Number:[id number] Assessment Information LACE LACE Length of stay for Answers: 2 days current admission Acuity / Level of Answers: No Care: Did the patient have an inpatient admission? Comorbidities - select Answers: Opioid dependence all that apply / Chronic pain Other Notes: Extensive gastrointestinal histor y # of Emergency department Answers: 12+ visits in the last 6 months Social determinants Answers: Mental health diagnosis (anxiety, depression, pers onality disorders, etc.) Score: 16 Date Signed: 04/03/2018 02:09 PM Electronically Signed By:America Villarreal [facility] CM Progress Note CM Note CM Note Notes: Chart reviewed, 22 year old patient well known to hospital with recurrent c/o N/V and high ostomy output who has undergone exhaustive GI workup during her last admission. Per her PCP she is to be discharged from the service due to lack of follow through on patient's behalf to come to appointments and see her psychiatrist. She has multiple gastrointestinal issues but does not adhere to prescribed diet and is demanding with PCP office with regards to obtaining her pain medications. Last discharged with [facility]. 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 Plan: Home with resumption of previous services. Date Signed: 04/01/2018 10:36 AM Electronically Signed By:Yasmine Ferguson RN [facility] CM Progress Note CM Note CM Note Notes: Spoke with pt during rounds. Pt requested CM speak with PCP Dr. Ye at [facility] per Sergio's request for coordination of care. Hospitalist stated he was also available to speak with PCP if needed but would need her direct number. (See CM note from 04/01 for more details.) Message left for Dr. Hill, no response received yet. Pt also stated she obtained appt with pain clinic on 04/20. Referral sent to [facility], though [facility] may discontinue services per their note. CM to follow. D/C Plan: [facility], [facility] (resuming services) Date Signed: 04/02/2018 04:02 PM Electronically Signed By:America Villarreal Case Management Discharge Plan Note Case Management Discharge Discharge Order Complete? Answers: Yes Patient to Obtain Answers: via Family Medications Transportation Arranged Answers: Family/Friends Transport will Pick (Date 04/03/2018 12:00 AM & Time) Faxed Final Orders Answers: Yes Agency/Facility Transfer Answers: Yes Report Printed & Faxed to Receiving Agency Family Notified Answers: Yes Notes: pt called Discharge Comments Notes: Pt to discharge home with support from [facility], [facility], and [facility]. All agencies have been notified and referrals updated. No further CM needs noted at this time. Date Signed: 04/03/2018 02:18 PM Electronically Signed By:America Villarreal Intervention Information
== END 2018-04-03 16:13 | disposition home or self-care (01) ==
LOC: F1N 04-01 02:42
PROVIDERS: ADMIT Student in an Organized Health Care Education/Training Program; ATTEND Family Medicine
DX: E86.0 Dehydration (principal); R11.2 Nausea with vomiting, unspecified; E43 Unspecified severe protein-calorie malnutrition; K91.2 Postsurgical malabsorption, not elsewhere classified; K91.1 Postgastric surgery syndromes; F11.20 Opioid dependence, uncomplicated; E27.40 Unspecified adrenocortical insufficiency; M48.54XD Collapsed vertebra, not elsewhere classified, thoracic region, subsequent encounter for fracture with routine healing; N13.30 Unspecified hydronephrosis; G40.909 Epilepsy, unspecified, not intractable, without status epilepticus; R10.84 Generalized abdominal pain; G89.4 Chronic pain syndrome; F41.8 Other specified anxiety disorders; Z93.2 Ileostomy status
CPT/HCPCS: 96361; 96374; 96375; 96376; 99285; G0378; J1170; J1200; J2060; J2550

== ENCOUNTER 2018-04-08 18:27 | Observation (INO) | payer BC, MEDICAID ==
--- NOTE | 2018-04-08 19:20 | EDPHY ---
H & P Stated Complaint: N/V SEEN FREQ FOR SAME Time Seen by Provider: 04/08/18 19:19 HPI/ROS: CHIEF COMPLAINT: Nausea vomiting HISTORY OF PRESENT ILLNESS: 22-year-old female, familiar to emergency department staff, complicated gastrointestinal history including dysmotility/ pseudo-obstruction status post total colectomy with ileostomy placement, gastrectomy with Chandler-en-Y gastrojejunostomy, median arcuate ligament syndrome status post release, kyphoplasty, numerous hospitalizations for dehydration nausea vomiting, arrives via private vehicle complaining of nausea vomiting, inability to tolerate any oral intake for the past 2 days. No abdominal pain. Normal ileostomy output. No urinary abnormality. No fever no chills. No chest pain. REVIEW OF SYSTEMS: 10 systems reviewed and negative with the exception of the elements mentioned in the history of present illness PAST MEDICAL & SURGICAL HISTORY: complicated gastrointestinal history including dysmotility/pseudo-obstruction status post total colectomy with ileostomy placement, gastrectomy with Chandler-en-Y gastrojejunostomy, median arcuate ligament syndrome status post release, kyphoplasty, numerous hospitalizations for dehydration nausea vomiting SOCIAL HISTORY:Nonsmoker. PHYSICAL EXAM (Prior to examination, patient consented to physical exam, hands were washed and my usual and customary physical exam procedures followed) 1) GENERAL: Well-developed, well-nourished, alert and oriented. Appears uncomfortable 2) HEAD: Normocephalic, atraumatic 3) HEENT: Pupils equal, round, reactive to light bilaterally. Sclera anicteric. Nasopharynx, oropharynx, clear, no lesions. Dry mucous membranes. 4) NECK: Full range of motion, no meningeal signs. 5) LUNGS: Clear auscultation bilaterally, no wheezes, no rhonchi, no retractions. 6) HEART: Regular rate and rhythm, no murmur, no heave, no gallop. 7) ABDOMEN: Ileostomy site is patent. No signs of infection. No guarding, no rebound, no focal tenderness, negative McBurney's, negative Zambrano's, negative Rovsing's, negative peritoneal sign, unable to elicit any abdominal pain on exam 8) MUSCULOSKELETAL: Moving all extremities, no focal areas of tenderness, no obvious trauma. No peripheral edema or discoloration. 9) BACK: No CVA tenderness, no midline vertebral tenderness, no fluctuance, no step-off, no obvious trauma, no visual or palpable abnormality. 10) SKIN: No rash, no petechiae. 11) Psychiatric: Patient is oriented X 3, there is no agitation. DIFFERENTIAL DIAGNOSIS: My differential diagnosis includes, but is not limited to, acute appendicitis, acute cholecystitis, bowel obstruction, acute pancreatitis,, ectopic , gastritis and urinary tract infection. The patient understands that this diagnosis is provisional and can never be 100% accurate. This is a partial list of diagnoses considered. These considerations are based on history, physical exam, past history and reassessment. - Personal History LMP (Females 10-55): Pre Menstrual Current Tetanus Diphtheria and Acellular Pertussis (TDAP): Yes Tetanus Vaccine Date: 2011 - Medical/Surgical History Hx Asthma: No Hx Chronic Respiratory Disease: No Hx Diabetes: No Hx Cardiac Disease: No Hx Renal Disease: No Hx Cirrhosis: No Hx Alcoholism: No Hx HIV/AIDS: No Hx Splenectomy or Spleen Trauma: No Other PMH: large intestine removed, [facility] 09/07 contINent illiostomy, intestinal pseudo obstruction, j tube placed- REMOVED, g tube placed- REMOVED, gastroparesis, epilepsy--. T3-12 FX , KYPHOPLASTY X3 2018, gastrectomy. ? ADRENAL INSUFF, OSTEOPOROSIS - Social History Smoking Status: Never smoked Constitutional: Initial Vital Signs Temperature (C) 36.5 C 04/08/18 18:30 Heart Rate 122 H 04/08/18 18:30 Respiratory Rate 27 H 04/08/18 18:30 Blood Pressure 123/85 H 04/08/18 18:30 O2 Sat (%) 100 04/08/18 18:30 O2 Delivery Mode Room Air Allergies/Adverse Reactions: tizanidine Allergy (Intermediate, Verified 04/08/18 18:28) "Passes out" dicyclomine [From Bentyl] Allergy (Mild, Verified 04/08/18 18:28) "Doesn't work, makes me feel heavy" haloperidol [From Haldol] Allergy (Mild, Verified 04/08/18 18:28) "Feels Jittery" prochlorperazine [From Compazine] Allergy (Mild, Verified 04/08/18 18:28) "Feels Jittery" milk Allergy (Verified 04/08/18 18:28) mustard Allergy (Verified 04/08/18 18:28) Home Medications: Medication Instructions Recorded Multivitamins [Multivitamin (*)] 1 each PO DAILY 01/08/18 busPIRone [Buspar (*)] 5 mg PO TID #90 tab 01/25/18 Glutamine [Glutasolve Resource] 1 each PO TID #100 pkt 02/10/18 Lipase 12,000/Amylase/Protease 1 cap PO TIDMEAL #100 cap 02/10/18 [Creon 12 (*)] Cholecalciferol Vit D3 [Vitamin D3 1,000 units PO DAILY #100 tab 03/16/18 (*)] Ns [NS IV 1000ml (*)] 1,000 ml IV BID bag 03/16/18 lamoTRIgine [LaMICtal] 50 mg PO BID #60 tab 03/16/18 Promethazine HCl [Phenergan 12.5 - 25 mg IVP Q6HRS PRN 04/08/18 Injection] oxyCODONE ORAL SOLUTION 20 mg PO QID PRN 04/08/18 [Roxicodone Intensol] Medical Decision Making ED Course/Re-evaluation: 7:37 p.m.: I have reviewed the patient's old medical records. Familiar with this patient's medical history. At this time patient states that she is unable tolerate any oral intake for the past 2 days. Will plan on IV hydration. I specifically discussed with the patient her discharge summary dated 04/01/2018 which makes recommendation of hydration but recommends avoiding IV narcotics and benzodiazepines. I discussed this with the patient she is agreeable with this. 8:32 p.m.: Re-evaluation, patient notes no improvement in symptoms after IV antiemetic. She does not feel she is able to go home. Consultation with hospitalist Dr. Richardson who will admit patient. Care of patient under supervision of secondary supervising physician Dr Alfonzo Gunn with whom I discussed case - Data Points Laboratory Results: Laboratory Results 04/08/18 19:40 04/08/18 19:40 04/08/18 04/08/18 04/08/18 19:40 19:40 19:40 WBC 6.59 10^3/uL 10^3/uL (3.80-9.50) RBC 4.51 10^6/uL 10^6/uL (4.18-5.33) Hgb 13.2 g/dL g/dL (12.6-16.3) Hct 39.5 % % (38.0-47.0) MCV 87.6 fL fL (81.5-99.8) MCH 29.3 pg pg (27.9-34.1) MCHC 33.4 g/dL g/dL (32.4-36.7) RDW 12.2 % % (11.5-15.2) Plt Count 341 10^3/uL 10^3/uL (150-400) MPV 9.0 fL fL (8.7-11.7) Neut % (Auto) 66.0 % % (39.3-74.2) Lymph % (Auto) 25.6 % % (15.0-45.0) [place] % (Auto) 7.6 % % (4.5-13.0) Eos % (Auto) 0.2 % L % (0.6-7.6) Baso % (Auto) 0.3 % % (0.3-1.7) Nucleat RBC Rel Count 0.0 % % (0.0-0.2) Absolute Neuts (auto) 4.35 10^3/uL 10^3/uL (1.70-6.50) Absolute Lymphs (auto) 1.69 10^3/uL 10^3/uL (1.00-3.00) Absolute Monos (auto) 0.50 10^3/uL 10^3/uL (0.30-0.80) Absolute Eos (auto) 0.01 10^3/uL L 10^3/uL (0.03-0.40) Absolute Basos (auto) 0.02 10^3/uL 10^3/uL (0.02-0.10) Absolute Nucleated RBC 0.00 10^3/uL 10^3/uL (0-0.01) Immature Gran % 0.3 % % (0.0-1.1) Immature Gran # 0.02 10^3/uL 10^3/uL (0.00-0.10) Sodium 138 mEq/L mEq/L (135-145) Potassium 4.0 mEq/L mEq/L (3.5-5.2) Chloride 110 mEq/L mEq/L (97-110) Carbon Dioxide 21 mEq/l L mEq/l (22-31) Anion Gap 7 mEq/L mEq/L (6-14) BUN 9 mg/dL mg/dL (7-23) Creatinine 0.5 mg/dL L mg/dL (0.6-1.0) Estimated GFR > 60 Glucose 57 mg/dL L mg/dL (70-100) Calcium 9.0 mg/dL mg/dL (8.5-10.4) Total Bilirubin 0.1 mg/dL mg/dL (0.1-1.4) Conjugated Bilirubin 0.1 mg/dL mg/dL (0.0-0.5) Unconjugated Bilirubin 0.0 mg/dL mg/dL (0.0-1.1) AST 18 IU/L IU/L (14-46) ALT 9 IU/L IU/L (9-52) Alkaline Phosphatase 129 IU/L H IU/L (38-126) Total Protein 6.8 g/dL g/dL (6.3-8.2) Albumin 4.1 g/dL g/dL (3.5-5.0) Lipase 175 IU/L IU/L (23-300) Beta HCG, Qual NEGATIVE Medications Given: Discontinued Medications Sodium Chloride (Ns) 2,000 mls @ 0 mls/hr IV ONCE ONE PRN Reason: Wide Open Stop: 04/08/18 19:42 Last Admin: 04/08/18 19:51 Dose: 2,000 mls Promethazine HCl (Phenergan) 12.5 mg IVP EDNOW ONE Stop: 04/08/18 20:06 Last Admin: 04/08/18 20:13 Dose: 12.5 mg Departure - Departure Disposition: [facility] Acute Clinical Impression: Intractable nausea and vomiting Qualifiers: Vomiting type: unspecified Qualified Code(s): R11.2 - Nausea with vomiting, unspecified Condition: Fair
[2018-04-08] MEDS ORDERED: NS 2,000 ML IV ONE (19:41)
[2018-04-08 19:53] LABS: PLATELET COUNT 341 10^3/uL (150-400)
[2018-04-08] MEDS ORDERED: PROMETHAZINE HCL 25 MG/ML INJ IVP ONE (20:05)
[2018-04-08] MEDS ORDERED: IBUPROFEN 200 MG TAB PO PRN (21:12)
[2018-04-08] MEDS ORDERED: ONDANSETRON 4 MG/2 ML VIAL IVP PRN (21:12)
[2018-04-08] MEDS ORDERED: ACETAMINOPHEN 325 MG TAB PO PRN (21:12)
[2018-04-08] MEDS ORDERED: PROMETHAZINE HCL 25 MG/ML INJ IVP PRN (21:12)
[2018-04-08] MEDS ORDERED: ONDANSETRON DISINTEGRATING 4 MG TAB PO PRN (21:12)
--- NOTE | 2018-04-08 22:05 | PDGENHP ---
History and Physical - Chief Complaint n/v - History of Present Illness 22 y/o female with a complicated gastrointestinal history of dysmotility/pseudo- obstruction s/p total colectomy with continent ileostomy placement, gastrectomy with Chandler-en-Y gastrojejunostomy, median arcuate ligament syndrome s/p release, kyphoplasty and numerous hospitalizations for dehydration and electrolyte disturbances presents with nausea and vomiting. The patient was discharged on 02/09 for management of similar issues. That hospitalization was complicated by concerns for pain medication seeking behaviors, discharge summary by Dr. 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 She does receive IVF at home as well as IV phenergan but states that she was unable to continue to manage at home due to continued nausea and vomiting and increased ostomy output. History Information - Allergies/Home Medication List Allergies/Adverse Reactions: tizanidine Allergy (Intermediate, Verified 04/08/18 18:28) "Passes out" dicyclomine [From Bentyl] Allergy (Mild, Verified 04/08/18 18:28) "Doesn't work, makes me feel heavy" haloperidol [From Haldol] Allergy (Mild, Verified 04/08/18 18:28) "Feels Jittery" prochlorperazine [From Compazine] Allergy (Mild, Verified 04/08/18 18:28) "Feels Jittery" milk Allergy (Verified 04/08/18 18:28) mustard Allergy (Verified 04/08/18 18:28) Home Medications: Multivitamins [Multivitamin (*)] 1 each PO DAILY 01/08/18 [Last Taken 04/08/18] Promethazine HCl [Phenergan Injection] 12.5 - 25 mg IVP Q6HRS PRN 04/08/18 [ Last Taken 04/08/18 09:00] oxyCODONE ORAL SOLUTION [Roxicodone Intensol] 20 mg PO QID PRN 04/08/18 [Last Taken 04/07/18] I have personally reviewed and updated: family history, medical history, social history, surgical history Past Medical History: See HPI - Past Medical History Additional medical history: Intestinal pseudoobstruction s/p colectomy and gastrectomy, SMA syndrome, median arcuate ligement syndrome, gastroparesis, vertebral compression fractures, seizure disorder - Surgical History Additional surgical history: total colectomy with continent ileostomy formation , gastrectomy with Chandler-en-Y gastrojejunostomy, median arcuate ligament release , SMA syndrome release, G and J tubes which are now removed - Family History Additional family history: VTE - Social History Smoking Status: Never smoked Alcohol Use: None Drug Use: None Additional social history: Lives with el and 2 other roommates, 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 Review of Systems Review of Systems: ROS: 10pt was reviewed & negative except for what was stated in HPI & below Physical Exam Physical Exam: Temp Pulse Resp BP Pulse Ox 36.5 C 98 16 97/71 L 100 04/08/18 18:30 04/08/18 20:30 04/08/18 20:30 04/08/18 20:30 04/08/18 20:30 Constitutional: no apparent distress, chronically ill appearing Eyes: PERRL, anicteric sclera Ears, Nose, Mouth, Throat: moist mucous membranes, hearing normal Cardiovascular: regular rate and rhythym, no murmur, rub, or gallop, No edema Respiratory: no respiratory distress, no rales or rhonchi, clear to auscultation Gastrointestinal: soft, non-tender abdomen, No normoactive bowel sounds, No guarding, No rebound, No distension Genitourinary: no bladder tenderness Skin: warm, normal color Musculoskeletal: full muscle strength Neurologic: AAOx3 Psychiatric: interacting appropriately, not anxious, not encephalopathic Lab Data & Imaging Review 04/08/18 19:40 04/08/18 19:40 WBC 6.59 10^3/uL (3.80-9.50) 04/08/18 19:40 RBC 4.51 10^6/uL (4.18-5.33) 04/08/18 19:40 Hgb 13.2 g/dL (12.6-16.3) 04/08/18 19:40 Hct 39.5 % (38.0-47.0) 04/08/18 19:40 MCV 87.6 fL (81.5-99.8) 04/08/18 19:40 MCH 29.3 pg (27.9-34.1) 04/08/18 19:40 MCHC 33.4 g/dL (32.4-36.7) 04/08/18 19:40 RDW 12.2 % (11.5-15.2) 04/08/18 19:40 Plt Count 341 10^3/uL (150-400) 04/08/18 19:40 MPV 9.0 fL (8.7-11.7) 04/08/18 19:40 Neut % (Auto) 66.0 % (39.3-74.2) 04/08/18 19:40 Lymph % (Auto) 25.6 % (15.0-45.0) 04/08/18 19:40 [place] % (Auto) 7.6 % (4.5-13.0) 04/08/18:40 Eos % (Auto) 0.2 % (0.6-7.6) L 04/08/18:40 Baso % (Auto) 0.3 % (0.3-1.7) 04/08/18:40 Nucleat RBC Rel Count 0.0 % (0.0-0.2) 04/08/18 19:40 Absolute Neuts (auto) 4.35 10^3/uL (1.70-6.50) 04/08/18 19:40 Absolute Lymphs (auto) 1.69 10^3/uL (1.00-3.00) 04/08/18 19:40 Absolute Monos (auto) 0.50 10^3/uL (0.30-0.80) 04/08/18:40 Absolute Eos (auto) 0.01 10^3/uL (0.03-0.40) L 04/08/18 19:40 Absolute Basos (auto) 0.02 10^3/uL (0.02-0.10) 04/08/18:40 Absolute Nucleated RBC 0.00 10^3/uL (0-0.01) 04/08/18:40 Immature Gran % 0.3 % (0.0-1.1) 04/08/18:40 Immature Gran # 0.02 10^3/uL (0.00-0.10) 04/08/18 19:40 Sodium 138 mEq/L (135-145) 04/08/18 19:40 Potassium 4.0 mEq/L (3.5-5.2) 04/08/18 19:40 Chloride 110 mEq/L (97-110) 04/08/18 19:40 Carbon Dioxide 21 mEq/l (22-31) L 04/08/18 19:40 Anion Gap 7 mEq/L (6-14) 04/08/18 19:40 BUN 9 mg/dL (7-23) 04/08/18 19:40 Creatinine 0.5 mg/dL (0.6-1.0) L 04/08/18 19:40 Estimated GFR > 60 04/08/18 19:40 Glucose 57 mg/dL (70-100) L 04/08/18 19:40 Calcium 9.0 mg/dL (8.5-10.4) 04/08/18 19:40 Total Bilirubin 0.1 mg/dL (0.1-1.4) 04/08/18 19:40 Conjugated Bilirubin 0.1 mg/dL (0.0-0.5) 04/08/18 19:40 Unconjugated Bilirubin 0.0 mg/dL (0.0-1.1) 04/08/18 19:40 AST 18 IU/L (14-46) 04/08/18 19:40 ALT 9 IU/L (9-52) 04/08/18 19:40 Alkaline Phosphatase 129 IU/L (38-126) H 04/08/18 19:40 Total Protein 6.8 g/dL (6.3-8.2) 04/08/18 19:40 Albumin 4.1 g/dL (3.5-5.0) 04/08/18 19:40 Lipase 175 IU/L (23-300) 04/08/18 19:40 Beta HCG, Qual NEGATIVE 04/08/18 19:40 Assessment & Plan Assessment: Intractable nausea and vomiting (Acute) 22 y/o female with a complicated gastrointestinal history of dysmotility/pseudo- obstruction s/p total colectomy with continent ileostomy placement, gastrectomy with Chandler-en-Y gastrojejunostomy, median arcuate ligament syndrome s/p release, kyphoplasty and numerous hospitalizations for dehydration and electrolyte disturbances and behaviors concerning for drug seeking behavior presenting with recurrent nausea and vomiting. Plan: # Nausea, vomiting, dehydration- recurrent issue for this patient, states she has not been able to hold down food or meds and has had increased ostomy output requiring hospitalization for IVF. Plan to start IVF, antiemetics as needed. She is requesting food and will start regular diet. # chronic pain with continuous opiate use and dependency: with some concerning behaviors and hx of breaking pain contract--has been released from her pain mgmt doctor, her PCP will no longer write her for pain medications, has frequent hospitalizations for pain management and issues with her care team around her pain mgmt. At last hospitalization she did agree to manage pain only with oral oxycodone and plan will be to continue that during this hospital stay as well. Will avoid any escalation in pain or anxiety meds or IV medication unless clearly needed # increased ostomy output: without physiology that would lead to dumping or short gut syndrome but complaints of this as above, w/u has been extensive and unremarkable, continued on glutamine, pancreatic enzymes, IVF at home # osteoporosis: w/hx of thoracic compression fxs, continued on vitamin D and pain medications, recommended she f/u with endocrinology on prior hospitalizations # sma syndrome/median arcuate ligament syndrome: s/p surgical intervention with Dr. Yao in the past # seizure d/o: continue home meds # anxiety: continue buspar # observation status # DVT ppx: prolonged hospitalizations recently and limited mobility, lmwh Patient new to my care. Old records reviewed/summarized as above. Care plan reviewed with ER doctor as above.
[2018-04-08] MEDS: oxyCODONE ORAL SOLUTION 10 MG/0.5 ML UDSYR PO PRN (22:25)
[2018-04-08] MEDS: NS 1,000 ML IV SCH (22:25)
[2018-04-08] MEDS: busPIRone 5 MG TAB PO SCH (23:44)
[2018-04-08] MEDS: GLUTAMINE (GLUTASOLVE) 1 EACH PKT PO SCH (23:44)
[2018-04-09] MEDS: PROMETHAZINE HCL 25 MG/ML INJ IVP PRN ×3 (05:14→16:40)
[2018-04-09] MEDS: NS 1,000 ML IV SCH (05:15)
[2018-04-09] MEDS: LIPASE 12,000/AMYLASE/PROTEASE (CREON) 1 CAP PO SCH ×3 (08:07→16:41)
[2018-04-09 08:10] LABS: PLATELET COUNT 270 10^3/uL (150-400)
[2018-04-09] MEDS ORDERED: ENOXAPARIN 40 MG/0.4 ML SYR SC SCH (09:00)
[2018-04-09] MEDS ORDERED: CHOLECALCIFEROL VIT D3 1,000 UNITS TAB PO SCH (09:00)
[2018-04-09] MEDS ORDERED: lamoTRIgine 100 MG TAB PO SCH (09:00)
[2018-04-09] MEDS ORDERED: MULTIVITAMINS 1 EACH TAB PO SCH (09:00)
[2018-04-09] MEDS: GLUTAMINE (GLUTASOLVE) 1 EACH PKT PO SCH ×2 (09:34→16:40)
[2018-04-09] MEDS: busPIRone 5 MG TAB PO SCH ×2 (09:34→16:40)
[2018-04-09] MEDS: oxyCODONE ORAL SOLUTION 10 MG/0.5 ML UDSYR PO PRN ×2 (09:36→16:39)
[2018-04-09 12:39] VITALS: BP 106/72
[2018-04-09] MEDS ORDERED: PSYLLIUM METAMUCIL 1 PKT PO PRN (13:43)
[2018-04-09] MEDS ORDERED: LOPERAMIDE HCL 2 MG CAP PO PRN (13:44)
--- NOTE | 2018-04-09 15:03 | ASMTDCNOTE ---
Case Management Discharge Discharge Order Complete? Answers: Yes Patient to Obtain Answers: via Family Medications Transportation Arranged Answers: Family/Friends Faxed Final Orders Answers: Yes Agency/Facility Transfer Answers: Yes Report Printed & Faxed to Receiving Agency Discharge Comments Notes: Andree was admitted under observation today for intractable nausea and vomiting. Care team meeting was arranged between community services coordinator, Dr. Ortez, CM, CM curtain supervisor Claudia Roe, and RN to discuss plan of treatment and discharge. CM received email from Mickie Brar (via email) who informed us that pt was discharged from her PCP and Pain Management provider. She instructed pt to schedule new appts and coordinate with her [facility] provider. Providers discussed plan for not prescribing narcotics to pt and following home medications. Pt agreeable. MD/RN/NIKKY met with pt to inform of discharge. Pt initially reported she didn't have a PCP or any follow-up supports. CM spoke with pt at length and pt reports she is scared and frustrated. CM provided support and education about outside supports including support groups and getting engaged with various groups. Pt then later reported that she already has follow-up appts scheduled. Pt did not provide CM with details of appts, but she reports she already had them scheduled and denied needing additional help/information. Discharge Outpatient Plan: -Active with [facility]. -Active [facility] -Active [facility] -Active with [facility] -has a PCP appt scheduled at [facility] with Archana Castellanos -has appt with new pain provider on the -has GI follow-up appt scheduled for June (pt reports earliest appt available). -has psychologist she sees in the community, feels is helpful. CM emailed care coordination from [facility] (Gianna ([phone]) to inform of plan. CM spoke with [facility], submit discharge ppwk. Cm submit discharge ppwk to [facility]. [facility] notified as well. Pt reports she lives with her fiance, he is supportive. Pt's mom is coming to visit this weekend, pt looks forward to that. Pt reports she has someone picking her up at 5pm. No other CM needs identified at this time. Date Signed: 04/09/2018 02:56 PM Electronically Signed By:BRENAD Dyer
--- NOTE | 2018-04-09 15:35 | ASMTLACE ---
LACE Length of stay for Answers: Less than 1 day current admission Acuity / Level of Answers: No Care: Did the patient have an inpatient admission? Comorbidities - select Answers: Opioid dependence all that apply / Chronic pain Other Notes: Extensive gastrointestinal histor y # of Emergency department Answers: 12+ visits in the last 6 months Social determinants Answers: History of substance abuse (ETOH, street drugs, prescription drugs, etc.) Mental health diagnosis (anxiety, depression, pers onality disorders, etc.) Score: 17 Date Signed: 04/09/2018 03:34 PM Electronically Signed By:BRENDA Dyer
--- NOTE | 2018-04-09 16:10 | ASDISCHSUM ---
Discharge Information Plan Status:Home with Home Health Medically Cleared to Leave: Discharge Date: D/C Disposition:Home Health Service ADT D/C Disposition:Home Health Service Projected Discharge Date:04/09/2018 11:00 AM Transportation at D/C:Family Discharge Delay Reason: Follow-Up Date:04/09/2018 11:00 AM Discharge Slot: Final Diagnosis: Placement Information Referral Type:*Home Health Care Services Referral ID:[id number] Provider Name:[facility] Address 1[address] Address 2: City:[place] Selection Factors: State:[place] Referral Type:Home Infusion Referral ID:[id number] Provider Name:[facility] Address 1:[address] [facility] [address] Address 2: City:[place] Selection Factors: [place] Referral Type:*Hospice Referral ID:[id number] Provider Name: Address 1: Phone Number: Address 2: Fax Number: City: Selection Factors: State: Referral Type:Palliative Care Referral ID:[id number] Provider Name:[facility] Address 1:[address] Phone Number: Address 2: Fax Number: City:[place] Selection Factors: State:[place] Patient Contact Information Contact Name:AGUILAR Relationship:Other Address: Work Phone: City:[place] Alternate Phone: [facility] Code:[place] Email: Financial Information Financial Class:BCOP Primary Plan Desc: OUT OF STATE [facility] Primary Plan Number:[id number] Secondary Plan Desc:MEDICAID HE[place] Secondary Plan Number:[id number] Assessment Information LACE LACE Length of stay for Answers: Less than 1 day current admission Acuity / Level of Answers: No Care: Did the patient have an inpatient admission? Comorbidities - select Answers: Opioid dependence all that apply / Chronic pain Other Notes: Extensive gastrointestinal histor y # of Emergency department Answers: 12+ visits in the last 6 months Social determinants Answers: History of substance abuse (ETOH, street drugs, prescription drugs, etc.) Mental health diagnosis (anxiety, depression, pers onality disorders, etc.) Score: 17 Date Signed: 04/09/2018 03:34 PM Electronically Signed By:BRENDA Dyer Case Management Discharge Plan Note Case Management Discharge Discharge Order Complete? Answers: Yes Patient to Obtain Answers: via Family Medications Transportation Arranged Answers: Family/Friends Faxed Final Orders Answers: Yes Agency/Facility Transfer Answers: Yes Report Printed & Faxed to Receiving Agency Discharge Comments Notes: Andree was admitted under observation today for intractable nausea and vomiting. Care team meeting was arranged between president of the [place], Dr. Ortez, CM, CM communications supervisor Claudia Roe, and RN to discuss plan of treatment and discharge. CM received email from Mickie Brar (via email) who informed us that pt was discharged from her PCP and Pain Management provider. She instructed pt to schedule new appts and coordinate with her [facility] provider. Providers discussed plan for not prescribing narcotics to pt and following home medications. Pt agreeable. MD/RN/CM met with pt to inform of discharge. Pt initially reported she didn't have a PCP or any follow-up supports. CM spoke with pt at length and pt reports she is scared and frustrated. CM provided support and education about outside supports including support groups and getting engaged with various groups. Pt then later reported that she already has follow-up appts scheduled. Pt did not provide CM with details of appts, but she reports she already had them scheduled and denied needing additional help/information. Discharge Outpatient Plan: -Active with [facility]. -Active [facility] -Active [facility] -Active with [facility] -has a PCP appt scheduled at [facility] with Archana Lewisson -has appt with new pain provider on the -has GI follow-up appt scheduled for June (pt reports earliest appt available). -has psychologist she sees in the community, feels is helpful. CM emailed care coordination from [facility] ([phone]) to inform of plan. CM spoke with [place], submit discharge ppwk. Cm submit discharge ppwk to [facility]. [facility] notified as well. Pt reports she lives with her fiance, he is supportive. Pt's mom is coming to visit this weekend, pt looks forward to that. Pt reports she has someone picking her up at 5pm. No other CM needs identified at this time. Date Signed: 04/09/2018 02:56 PM Electronically Signed By:BRENDA Dyer Intervention Information
--- NOTE | 2018-04-09 18:31 | PDIAF ---
- Diagnosis Diagnosis: dehydration Code Status: Full Code - Medication Management Discharge Medications: electronically signed and located in the Home Medication List. PICC Care - Routine: Yes - Orders Services needed: Home Care, Registered Nurse Home Care Face to Face: I certify that this patient was under my care and that I had the required [id number] encounter meeting the encounter requirements on the discharge day. My findings support the fact that the patient is homebound as defined in Home Care Face to Face Continued: CMS Chapter 7 Medicare Benefits Manual 30.1.1 , The condition of the patient is such that there exists a normal inability to leave home and consequently, leaving home would require a considerable and taxing effort. Isolation Type: None Diet Recommendation: no restrictions on diet Additional Instructions: Imodium or metamucil for high ostomy output. Titrate dose until you get desired effect - Follow Up Care Current Providers and Referrals: NONE *PRIMARY CARE P,. [Primary Care Provider] - As per Instructions
--- NOTE | 2018-04-09 19:02 | GDS ---
DISCHARGE DIAGNOSES: 1. Dehydration. 2. Continuous narcotic dependency. 3. Gastrointestinal dysmotility with complicated past surgical history. 4. Recent thoracic compression fracture. 5. Seizure disorder. HISTORY: This is a 22-year-old female with a complicated surgical history including a previous ileos karlos, gastrectomy and Chandler-en-Y gastrojejunostomy, median arcuate ligament syndrome, status post rele ase. She has multiple recurrent admissions for pain and dehydration. She has a PICC line at home an d self administers 2 L of IV fluid per day. She presents to the hospital with recurrent nausea, vomi ting, increased ostomy output. There has been concern for drug-seeking behavior on previous admissions. She did not have any indica tions for acute IV Dilaudid and did not receive IV narcotics. We continued her chronic oral oxycodon e dose. The next morning, she ate breakfast without difficulty. She continues to report increased o stomy output but does not allow the nurses to monitor it and refuses to take any Imodium or increased fiber to assist with control. She was recently fired by her primary care doctor and outpatient pain physician for breaking the contract. After overnight observation, she appeared to be at baseline. Her labs and vital signs look great. S he ate a large breakfast. She was informed that she will not be getting any refills of her chronic p ain medications at hospital discharge. assistant merchandise manager met with her extensively in regard to her new pr imary care and pain management appointments. We counseled her to improve her relations with her outp atient physicians to avoid unneeded hospitalizations due to outpatient management failure. GI has se en her in the past. They feel her current GI symptoms are all due to a dysmotility disorder. She wi ll follow up with them as well. DISCHARGE MEDICATIONS: Please see computer record for full detailed list. There are no new medicati ons given at time of hospital discharge. She asked for a refill of her chronic oxycodone and this wa s denied. She needs to re-establish with outpatient providers. ADDITIONAL DISCHARGE INSTRUCTIONS: 1. Imodium or Metamucil for high ostomy output. Titrate dose until you get desired effect. 2. Outpatient followup with new primary care and pain management physicians. 3. Home health for ongoing PICC line care. 4. Greater than 30 minutes' time was spent arranging this discharge. Patient seen and examined by me on the day of discharge. /[id number]/MODL
== END 2018-04-09 17:00 | disposition home health service (06) ==
LOC: F1N 21:27
PROVIDERS: ADMIT Internal Medicine; ATTEND Internal Medicine
DX: E86.0 Dehydration (principal); F11.20 Opioid dependence, uncomplicated; K59.8 Other specified functional intestinal disorders; M48.54XA Collapsed vertebra, not elsewhere classified, thoracic region, initial encounter for fracture; G40.909 Epilepsy, unspecified, not intractable, without status epilepticus
CPT/HCPCS: 96361; 96374; 96376; 99285; G0378; J1650; J2550